=== PATIENT | female | born 1945 | race Caucasian/White ===

== ENCOUNTER 2016-11-20 20:35 | Emergency (ER) | payer OTHER ==
[~2016-11-20] VITALS: Ht 172.7 cm; Wt 77.4 kg
[~2016-11-20 20:35] MED LIST: AMLO-110 PO; CLB/200 PO; CRS20 PO; CYM/60 PO; HYDR-3714 PO; PTDOPS OPB; ZOLP10TA PO
[2016-11-20 20:54] VITALS: TEMP 36.6; Ht 172.7 cm; Wt 77.4 kg
[2016-11-20] MEDS ORDERED: OMEP20CA9 PO (22:54)
[2016-11-20] MEDS ORDERED: LXP10 PO (22:54)
[2016-11-20] MEDS ORDERED: AMLO5CAP2 PO (22:54)
[2016-11-20] MEDS ORDERED: HYDR-5688 PO (23:03)
--- NOTE | 2016-11-20 23:07 | DIAGNOSTIC IMAGING REPORT ---
PA CHEST WITH ABDOMINAL CT CLINICAL HISTORY: Generalized abdominal pain. Clinical concern for bowel obstruction. FINDINGS: A PA chest radiograph is obtained. No prior studies are available for comparison at the time of dictation. The heart is top normal for projection. There is mild atherosclerotic calcification of the thoracic aorta. There is bibasilar atelectasis and mild elevation right hemidiaphragm. No airspace consolidation or pleural effusion is seen. No pneumothorax is seen. The skeletal structures are osteopenic. The bony thorax is grossly intact. Surgical clips project over the right axilla in the right breast. Supine and erect abdominal radiographs are obtained. No prior studies are available for comparison at the time of dictation. There are distended and gas-filled loops of proximal small bowel measuring up to 4.5 cm in diameter. Scattered air-fluid levels are noted on the upright view. There is a posterior distal bowel gas, the findings suggest bowel obstruction. No evidence of intraperitoneal free air is seen. There are no abnormal abdominal calcifications. Advanced spondylotic change with probable postoperative changes seen in the lumbar spine. The bony pelvis appears intact. IMPRESSION: 1. No acute cardiopulmonary abnormality. 2. Findings suggest small bowel obstruction. Clinical correlation will be required. 3. No intraperitoneal free air is seen. Electronically signed by: Miguel Hernandez M.D. 11/20/2016 11:05 PM Dictated Date/Time: 11/20/2016 11:02 PM
[2016-11-20 23:53] LABS: BASO % 0.5 %; BASO ABS # 0.04 K/uL (0-0.2); COMPLETE YES; HEMATOCRIT 36.6 % (37-47); IG% 0.1 %; LYMPH % 30.9 %; LYMPH ABS # 2.29 K/uL (1.2-3.4); MEAN CELL VOLUME 87.1 fL (80-100); MEAN CORPUSCULAR HEMOGLOBIN 27.9 pg (25-34); MEAN PLATELET VOLUME 9.4 fL (7.4-10.4); MONO % 8.2 %; NEUT % 58.3 %; PLATELET COUNT 267 K/uL (130-400); WHITE BLOOD COUNT 7.41 K/uL (4.8-10.8)
[2016-11-21 00:09] LABS: PROTHROMBIN TIME (PATIENT) 10.4 SECONDS (9.0-12.0)
[2016-11-21 00:13] LABS: BUN/CREATININE RATIO 8.3 (10-20); CALCIUM 9.2 mg/dl (8.5-10.1); CREATININE 0.72 mg/dl (0.60-1.20); POTASSIUM 3.5 mmol/L (3.5-5.1)
[2016-11-21 02:28] VITALS: BP 137/101; PULSE 75; O2SAT 98
--- NOTE | 2016-11-21 02:49 | EMERGENCY ROOM VISIT NOTE ---
History Report prepared by Adrienne: Franci Cota Under the Supervision of: Dr. Chung Kwon M.D. First contact with patient: 21:22 Chief Complaint: CONSTIPATION Stated Complaint: NO BOWEL MOVEMENT IN 5 DAYS History of Present Illness The patient is a 71 year old female who presents to the Emergency Room with complaints of constant constipation beginning 5 days prior to arrival. The patient states that she has not had a bowel movement in 5 days and has not passed gas either. She notes that she feels bloated but denies abdominal pain, vomiting, or nausea. The patient was seen by Dr. Salinas at [facility] for her constipation. He sent her here for further evaluation. Today she has tried an enema, Miralax, stool softeners and magnesium citrate with no change in symptoms. She notes from the enema she did pass the water and a very small amount of stool. She does take one Vicodin everyday for the past 30 years due to numerous back issues. 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 The patient denies passing gas. Review of Systems See HPI for pertinent positives & negatives. A total of 10 systems reviewed and were otherwise negative. Past Medical & Surgical Medical Problems: (1) Acid reflux (2) Breast cancer (3) Chronic back pain (4) High cholesterol (5) Hypertension Surgical Problems: (1) H/O: hysterectomy Family History Patient reports no known family medical history. Social History Smoking Status: Never Smoker Smokeless Tobacco Use: No Alcohol Use: none Marital Status: Housing Status: lives with family Occupation Status: retired Current/Historical Medications Scheduled Amlodipine/Benazepril (Lotrel 5MG/20MG), 1 CAP PO DAILY Celecoxib (CeleBREX), 200 MG PO BID Duloxetine HCl (Cymbalta), 60 MG PO BID Escitalopram Oxalate (Escitalopram Oxalate), 10 MG PO QAM Olopatadine Hydrochloride (Pataday), 1 DROP OPB QAM Omeprazole (Prilosec), 20 MG PO DAILY Rosuvastatin Calcium (Crestor), 20 MG PO HS Zolpidem Tartrate (Ambien), 10 MG PO HS Scheduled PRN Hydrocodone/Acetaminophen 5MG/325MG ([place] 5MG/325MG), 1 TABLET PO Q6 PRN for Pain Allergies Coded Allergies: Adhesives (Verified Allergy, Unknown, RASH AND SORE, 11/20/16) NO KNOWN DRUG ALLERGIES (Verified Allergy, Unknown, ., 02/14/15) Physical Exam Vital Signs Date Time Temp Pulse Resp B/P Pulse Ox O2 Delivery O2 Flow Rate FiO2 11/21/16 02:28 75 18 137/101 98 11/21/16 00:16 63 18 161/87 95 Room Air 11/20/16 22:08 68 137/60 11/20/16 20:54 36.6 100 18 137/86 97 Room Air Physical Exam Constitutional: Vital signs reviewed. Eyes: Pupils are equal round reactive to light. Conjunctiva are noninjected. ENT: Pharynx is clear without erythema or exudate. Mucous membranes are moist. Neck supple without meningeal signs. Respiratory: Clear to auscultation bilaterally. Breath sounds are equal bilaterally. Cardiovascular: Regular rate and rhythm. No rubs or gallops. GI: Soft, nondistended and nontender. Bowel sounds are present. Musculoskeletal: No peripheral edema. No lower extremity tenderness. Integumentary: No cyanosis. Neurological: The patient is awake and alert. No focal deficits. Psychiatric: Normal affect. Medical Decision & Procedures ER Provider Diagnostic Interpretation: Radiology results as stated below per my review and the radiologist's interpretation: PA CHEST WITH ABDOMINAL CT CLINICAL HISTORY: Generalized abdominal pain. Clinical concern for bowel obstruction. FINDINGS: A PA chest radiograph is obtained. No prior studies are available for comparison at the time of dictation. The heart is top normal for projection. There is mild atherosclerotic calcification of the thoracic aorta. There is bibasilar atelectasis and mild elevation right hemidiaphragm. No airspace consolidation or pleural effusion is seen. No pneumothorax is seen. The skeletal structures are osteopenic. The bony thorax is grossly intact. Surgical clips project over the right axilla in the right breast. Supine and erect abdominal radiographs are obtained. No prior studies are available for comparison at the time of dictation. There are distended and gas-filled loops of proximal small bowel measuring up to 4.5 cm in diameter. Scattered air-fluid levels are noted on the upright view. There is a posterior distal bowel gas, the findings suggest bowel obstruction. No evidence of intraperitoneal free air is seen. There are no abnormal abdominal calcifications. Advanced spondylotic change with probable postoperative changes seen in the lumbar spine. The bony pelvis appears intact. IMPRESSION: 1. No acute cardiopulmonary abnormality. 2. Findings suggest small bowel obstruction. Clinical correlation will be required. 3. No intraperitoneal free air is seen. Electronically signed by: Miguel Hernandez M.D. 11/20/2016 11:05 PM Dictated Date/Time: 11/20/2016 11:[address] ABDOMEN & PELVIS: Stool within the proximal, transverse and proximal descending left colon appears to be liquid type stool. No evidence of wall thickening or pericolonic inflammatory change No bowel dilation or free air Interposition of the hepatic flexure at the right hemidiaphragm Basilar atelectasis Solid organs and gallbladder appear within limits on noncontrast imaging Ovaries appear unremarkable No free fluid Radiologist: Olvin Stewart MD Study read at 23:25 Laboratory Results 11/20/16 23:40 Red Blood Count 4.20, Mean Corpuscular Volume 87.1, Mean Corpuscular Hemoglobin 27.9, Mean Corpuscular Hemoglobin Concent 32.0, Mean Platelet Volume 9.4, Neutrophils (%) (Auto) 58.3, Lymphocytes (%) (Auto) 30.9, Monocytes (%) (Auto) 8.2, Eosinophils (%) (Auto) 2.0, Basophils (%) (Auto) 0.5, Neutrophils # (Auto) 4.31, Lymphocytes # (Auto) 2.29, Monocytes # (Auto) 0.61, Eosinophils # (Auto) 0.15, Basophils # (Auto) 0.04 11/20/16 23:40 Test 11/20/16 23:40 White Blood Count 7.41 K/uL (4.8-10.8) Red Blood Count 4.20 M/uL (4.2-5.4) Hemoglobin 11.7 g/dL (12.0-16.0) Hematocrit 36.6 % (37-47) Mean Corpuscular Volume 87.1 fL (80-100) Mean Corpuscular Hemoglobin 27.9 pg (25-34) Mean Corpuscular Hemoglobin Concent 32.0 g/dl (32-36) Platelet Count 267 K/uL (130-400) Mean Platelet Volume 9.4 fL (7.4-10.4) Neutrophils (%) (Auto) 58.3 % Lymphocytes (%) (Auto) 30.9 % Monocytes (%) (Auto) 8.2 % Eosinophils (%) (Auto) 2.0 % Basophils (%) (Auto) 0.5 % Neutrophils # (Auto) 4.31 K/uL (1.4-6.5) Lymphocytes # (Auto) 2.29 K/uL (1.2-3.4) Monocytes # (Auto) 0.61 K/uL (0.11-0.59) Eosinophils # (Auto) 0.15 K/uL (0-0.5) Basophils # (Auto) 0.04 K/uL (0-0.2) RDW Standard Deviation 45.1 fL (36.4-46.3) RDW Coefficient of Variation 14.1 % (11.5-14.5) Immature Granulocyte % (Auto) 0.1 % Immature Granulocyte # (Auto) 0.01 K/uL (0.00-0.02) Prothrombin Time 10.4 SECONDS (9.0-12.0) Prothromb Time International Ratio 1.0 (0.9-1.1) Activated Partial Thromboplast Time 27.2 SECONDS (21.0-31.0) Partial Thromboplastin Ratio 1.0 Anion Gap 5.0 mmol/L (3-11) Est Creatinine Clear Calc Drug Dose 79.5 ml/min Estimated GFR () 98.3 Estimated GFR (Non- 84.9 BUN/Creatinine Ratio 8.3 (10-20) Calcium Level 9.2 mg/dl (8.5-10.1) Laboratory results as reviewed by me. ED Course 2122: The patient was evaluated in room B6. A complete history and physical exam was performed. 2307: I discussed results with the patient and informed her she needs a CT scan. 0033: I spoke with Dr. Stewart - [place] about the patient's CT results. He states that there is no bowel obstruction. 0043: I discussed test results with the patient. She is getting an enema. 0220: The patient had a large bowel movement and is feeling better. 0224: Upon reevaluation, the patient appeared to have improvement of her symptoms. I discussed tonight's findings with her. She verbalized agreement of the treatment plan. She was discharged home. Medical Decision This is a 71-year-old female who presents with inability to have a bowel movement. Differential diagnosis includes bowel obstruction, obstipation, fecal impaction, constipation, narcotic induced constipation. I did perform a limited focused review of portions of the patient's old chart on the electronic medical record. The patient has had no recent pertinent visits to this hospital. I did evaluate the patient as noted above. The patient is presenting with inability to have a bowel movement for the past 5 days. She was sent here by her doctor to rule out bowel obstruction. She denies any abdominal pain or vomiting. I did order and personally review the patient's abdominal and chest x-rays as described above. This is concerning for small bowel obstruction. I did discuss the test results with the patient. IV access was established. I did order and review the patient's blood work as noted in the electronic medical record. I did order a CT of the abdomen and pelvis. I did review the images myself as well as the radiology report as described above. There is no evidence of bowel obstruction. She seems to have mostly liquid stool in her abdomen. I did discuss the results with the radiologist. I did discuss the test results with the patient. She was given a soapsuds enema. She did have a large bowel movement here and felt better. The patient was therefore discharged home and will follow up with her doctor. Consults Time Called: 003 Consulting Physician: Dr. Pat Suazo Returned Call: [address] Pat Suazo about the patient's CT results. He states that there is no bowel obstruction. Impression Primary Impression: Constipation Scribe Attestation The scribe's documentation has been prepared under my direct and personally reviewed by me in its entirety. I confirm that the note above accurately reflects all work, treatment, procedures, and medical decision making performed by me. Departure Information Dispostion Home / Self-Care Referrals Elizabeth Ramirez (PCP) Forms HOME CARE DOCUMENTATION FORM, IMPORTANT VISIT INFORMATION Patient Instructions Constipation, My [facility] Additional Instructions You have been examined and treated today on an emergency basis only. This is not a substitute for, or an effort to provide, complete comprehensive medical care. It is impossible to recognize and treat all injuries or illnesses in a single emergency department visit. It is therefore important that you follow up closely with your physician. Call as soon as possible for an appointment. Return for worsening symptoms or if you develop fever, vomiting, abdominal pain or any other concerning symptoms. Problem Qualifiers Primary Impression: Constipation Constipation type: unspecified constipation type Qualified Codes: K59.00 - Constipation, unspecified
--- NOTE | 2016-11-21 08:16 | DIAGNOSTIC IMAGING REPORT ---
ABDOMEN AND PELVIS CT WITHOUT CONTRAST CT DOSE: 374.86 mGy.cm HISTORY: Constipation. Bloating. TECHNIQUE: Multiaxial CT images of the abdomen and pelvis were performed without contrast. COMPARISON STUDY: None. FINDINGS: Linear density at the lung bases favor scarring or atelectasis. No pneumoperitoneum. No pneumatosis. Postoperative changes within the lower lumbar spine. Surgical clips within the visualized right breast. The unenhanced liver, spleen, adrenal glands, pancreas, and gallbladder are unremarkable. No retroperitoneal lymphadenopathy. Normal bladder. The uterus is surgically absent. No dilated loops of small bowel to suggest an obstruction. Fluid-filled colon. The cecum is located on the left side of the abdomen. IMPRESSION: 1. Fluid-filled colon. This can be seen in the setting of a gastroenteritis. 2. No evidence for bowel obstruction. Electronically signed by: Jean Colón M.D. 11/21/2016 8:14 AM Dictated Date/Time: 11/21/2016 8:06 AM
== END 2016-11-21 02:25 | disposition home or self-care (01) ==
LOC: C.EDB 20:39
DX: K59.00 Constipation, unspecified (principal); K21.9 Gastro-esophageal reflux disease without esophagitis; Z85.3 Personal history of malignant neoplasm of breast; E78.00 Pure hypercholesterolemia, unspecified; I10 Essential (primary) hypertension; M54.9 Dorsalgia, unspecified; G89.29 Other chronic pain; Z79.899 Other long term (current) drug therapy

== ENCOUNTER → 2017-03-15 | Outpatient (CLI) | payer OTHER ==
[~2017-03-15] MED LIST changes: -AMLO-110 PO; +AMLO5CAP2 PO; -HYDR-3714 PO; +HYDR-5688 PO; +LXP10 PO; +OMEP20CA9 PO
--- NOTE | 2017-03-18 14:32 | MAMMOGRAPHY REPORT ---
BILATERAL DIGITAL SCREENING MAMMOGRAM TOMOSYNTHESIS WITH CAD: 03/15/2017 CLINICAL HISTORY: Asymptomatic. Personal history of breast cancer. TECHNIQUE: Breast tomosynthesis in addition to standard 2D mammography was performed. Current study was also evaluated with a Computer Aided Detection (CAD) system. COMPARISON: Comparison is made to exams dated: 10/22/2014 mammogram - [facility], mammogram, 12/31/2008 mammogram, and 05/07/2007 mammogram. BREAST COMPOSITION: There are scattered areas of fibroglandular density in both breasts. FINDINGS: There is a lobulated 7 mm mass within the left medial breast at approximately 9:00 middle depth, for which ultrasound and possible additional spot compression views are recommended for furthe r evaluation. This may represent a cyst. The remainder of both breasts are stable compared to prior exams, without suspicious masses, calcific ations, or areas of architectural distortion noted. There are stable postsurgical changes in the rig ht breast from prior lumpectomy. Mixed density 2.4 cm mass in the left breast at approximately 3:00 is stable dating back to the 2006 exam and is compatible with a benign hamartoma. IMPRESSION: ACR BI-RADS CATEGORY 0: INCOMPLETE EVALUATION: NEED ADDITIONAL IMAGING EVALUATION Left breast mass, for which additional imaging evaluation is recommended. The patient will be called to schedule an appointment. Approximately 10% of breast cancers are not detected with mammography. A negative mammographic report should not delay biopsy if a clinically suggestive mass is present. Idania Pérez M.D. /:03/15/2017 16:33:29 Pasting Machine Offbearer: Mariela CHAUDHARI)([place]), [facility] letter sent: Addl Imaging 0 BI-RADS Code: ACR BI-RADS Category 0: Incomplete Evaluation: Need Additional Imaging Evaluation
== END | disposition home or self-care (01) ==
LOC: C.MAMM 14:32
PROVIDERS: ATTEND Nurse Practitioner Family
DX: Z12.31 Encounter for screening mammogram for malignant neoplasm of breast (principal); N63 Unspecified lump in breast; Z85.3 Personal history of malignant neoplasm of breast

== ENCOUNTER → 2017-03-21 | Outpatient (CLI) | payer OTHER ==
--- NOTE | 2017-03-22 14:31 | MAMMOGRAPHY REPORT ---
ULTRASOUND OF LEFT BREAST: 03/21/2017 CLINICAL HISTORY: Callback from screening mammogram for left breast mass. COMPARISON: Comparison is made to exams dated: 03/15/2017 mammogram, 10/22/2014 mammogram - [facility], 09/02/2012 mammogram, 12/31/2008 mammogram, and 05/07/2007 mammogram. TECHNIQUE: Real-time targeted ultrasound of the left breast was performed. FINDINGS: Real-time, high resolution targeted ultrasound was performed of the area of the mammograph ic mass seen on the recent screening mammogram in the left 9:00 breast. In the left 9:00 breast suba reolar region, there is an oval circumscribed anechoic mass with a thin internal septation, measuring 9 x 3 x 6 mm. This corresponds with the mammographic mass and is consistent with a benign cyst. IMPRESSION: ACR BI-RADS CATEGORY 2: BENIGN Benign 9 mm cyst in the left 9:00 subareolar breast, which correspond with the mammographic mass. Th ere is no sonographic evidence of malignancy. A 1 year screening mammogram is recommended. The elizabeth ent was verbally notified of the results. Idania Pérez M.D. /:03/21/2017 14:55:35 Police Clerk: Carla CHAUDHARI)([place]), [facility] letter sent: Normal 1/2 BI-RADS Code: ACR BI-RADS Category 2: Benign
== END | disposition home or self-care (01) ==
LOC: C.MAMM 14:15
PROVIDERS: ATTEND Nurse Practitioner Family
DX: N60.02 Solitary cyst of left breast (principal)

== ENCOUNTER → 2017-04-22 | Outpatient (CLI) | payer OTHER ==
--- NOTE | 2017-04-22 11:26 | DIAGNOSTIC IMAGING REPORT ---
BILATERAL KNEES 5 VIEWS CLINICAL HISTORY: Bilateral knee pain COMPARISON: None. DISCUSSION: The bones are osteopenic. There is bilateral chondrocalcinosis. No acute fractures are visualized. There are mild osteophytic changes present within each the with medial joint compartment narrowing. IMPRESSION: Bilateral chondrocalcinosis and degenerative change. No acute fractures. Electronically signed by: Franc Mims M.D. 04/22/2017 11:25 AM Dictated Date/Time: 04/22/2017 11:24 AM
== END | disposition home or self-care (01) ==
LOC: C.RDSM 11:15
PROVIDERS: ATTEND Physician Assistant
DX: M25.561 Pain in right knee (principal); M25.562 Pain in left knee; M11.261 Other chondrocalcinosis, right knee; M11.262 Other chondrocalcinosis, left knee

== ENCOUNTER → 2017-09-20 | Outpatient (CLI) | payer OTHER ==
--- NOTE | 2017-09-20 12:50 | DIAGNOSTIC IMAGING REPORT ---
CERVICAL SPINE 4 OR 5 VIEWS HISTORY: 72 years-old Female LEFT CERVICAL RADICULOPATHY acute cervical spine pain with left-sided radicular symptoms COMPARISON: None available TECHNIQUE: 5 views of the cervical spine FINDINGS: There is reversal the normal cervical lordosis centered at the C4-C5 level. Severe intervertebral disc space narrowing is seen at C5-C6 with at least moderate intervertebral disc space narrowing at C6-C7. Mild multilevel endplate spurring is noted with mostly moderate multilevel facet arthrosis. These changes result in mild left-sided bony foraminal narrowing on the left at C6-C7. No acute fracture or subluxation. Imaged lung apices appear clear. No prevertebral soft tissue swelling or opaque foreign body. IMPRESSION: 1. No acute fracture or subluxation. 2. Degenerative changes as above, most pronounced at the C5-C6 level where there is severe intervertebral disc space narrowing. 3. Mild left-sided bony neuroforaminal stenosis at C6-C7. The above report was generated using voice recognition software. It may contain grammatical, syntax or spelling errors. Electronically signed by: Kimo Robison M.D. 09/20/2017 12:49 PM Dictated Date/Time: 09/20/2017 12:46 PM
== END | disposition home or self-care (01) ==
LOC: C.RDSM 11:30
PROVIDERS: ATTEND Physician Assistant
DX: M47.812 Spondylosis without myelopathy or radiculopathy, cervical region (principal); M48.02 Spinal stenosis, cervical region

== ENCOUNTER → 2017-10-14 | Outpatient (CLI) | payer OTHER ==
[~2017-10-14] MED LIST changes: +GADAVIST IV PRN
--- NOTE | 2017-10-14 10:09 | DIAGNOSTIC IMAGING REPORT ---
MR ANGIOGRAM OF THE BRAIN CLINICAL HISTORY: Paresthesias chronic speech disturbance. Headaches. COMPARISON STUDY: MRI of the brain performed concurrently on 10/14/2017.. TECHNIQUE: 3-D [id number] MR angiography of the intracranial circulation is performed. 3-D tumble views are created and assessed. IV contrast was not administered for this examination. FINDINGS: The internal carotid arteries are widely patent bilaterally, as are the anterior and middle cerebral arteries. The vertebrobasilar system and posterior cerebral arteries are widely patent. The vertebral arteries are codominant. There is no aneurysm, high-grade stenosis, or focal vessel cutoff seen throughout the intracranial circulation. The brain parenchyma is normal as visualized. IMPRESSION: Unremarkable MR angiogram of the brain. Electronically signed by: Miguel Hernandez M.D. 10/14/2017 10:07 AM Dictated Date/Time: 10/14/2017 10:05 AM
--- NOTE | 2017-10-14 11:20 | DIAGNOSTIC IMAGING REPORT ---
MRI OF THE BRAIN COMBO CLINICAL HISTORY: Paresthesias. Daily headaches. Chronic speech disturbance. COMPARISON STUDY: No priors. TECHNIQUE: MRI of the brain was performed utilizing various T1 and T2-weighted sequences in the axial, sagittal, and coronal planes. Contrast-enhanced sequences were acquired following the administration of 6.5 cc of Gadavist. FINDINGS: Brain parenchyma: There are age-related involutional changes noting advanced confluent subcortical and periventricular microangiopathic disease. A small chronic lacunar infarct is identified in the left cerebellar hemisphere. Chronic lacunar infarcts are also identified in the right thalamus and the left caudate head. There is no hemorrhage or mass effect. There is no restricted diffusion to suggest acute ischemia. No enhancing mass lesion is identified on the postcontrast images. Matthews-white matter differentiation is preserved. No extra-axial fluid collection is seen. The cerebellar tonsils are normal in configuration. Ventricles, sulci, and cisterns: Prominent secondary to involutional change. Pituitary and sella: Unremarkable. Intracranial vasculature: Normal flow voids are maintained at the skull base. Orbits: The bony orbits are grossly intact. Orbital contents are normal in appearance noting bilateral ocular lens implants. Sinuses and mastoids: Clear. Calvarium: Unremarkable. Cervical cord: Partially visualized cervical spinal cord is normal in morphology and signal intensity. IMPRESSION: 1. No acute intracranial abnormality. 2. Senescent changes and advanced microangiopathic disease as above. Electronically signed by: Miguel Hernandez M.D. 10/14/2017 11:19 AM Dictated Date/Time: 10/14/2017 11:16 AM
== END | disposition home or self-care (01) ==
LOC: C.MRI 08:45
PROVIDERS: ATTEND Nurse Practitioner Family
DX: R20.2 Paresthesia of skin (principal); R20.0 Anesthesia of skin; I10 Essential (primary) hypertension; R47.9 Unspecified speech disturbances

== ENCOUNTER 2018-09-17 20:24 | Inpatient (IN) ==
[2018-09-17] MEDS ORDERED: OPTIRAY 320 125ml IV PRN (20:44)
--- NOTE | 2018-09-17 20:50 | CT Scan Report ---
CT OF THE HEAD WITHOUT CONTRAST CLINICAL HISTORY: Stroke evaluation COMPARISON STUDY: MRI of the brain October 14, 2017. TECHNIQUE: Helical axial images of the head were obtained without IV contrast. Automated exposure con trol was utilized for the study. A dose lowering technique was utilized adhering to the principles o f ALARA. FINDINGS: No acute intracranial hemorrhage, midline shift or mass effect is present. Ventricular dila tation is unchanged. The basilar cisterns are patent. There are no extra-axial collections. White mat ter hypodensities are unchanged. These suggest small vessel disease. An 8 mm hypodensity within the l eft internal capsule is noted. There are no significant calvarial abnormalities. IMPRESSION: 1. No acute intracranial hemorrhage or mass effect. Discussed with Dr. Proctor at time of dictation. 2. 8 mm hypodensity within the left internal capsule which represents an age indeterminate lacunar in farct. Electronically signed by: Nik Bolton M.D. 09/17/2018 8:49 PM
[2018-09-17] MEDS ORDERED: SODIUM CHLORIDE 0.9% 1000ML 1,000 ML IV SCH (21:00)
[2018-09-17 21:01] LABS: Basophils # (auto) 0.04 K/uL (0-0.2); Basophils % (auto) 0.5 %; Eosinophils # (auto) 0.08 K/uL (0-0.5); Eosinophils % (auto) 0.9 %; Hematocrit (blood only) 37.1 % (37-47); Hemoglobin 11.8 g/dL (12.0-16.0); Immature Granulocytes # (auto) 0.01 K/uL (0.00-0.02); Immature Granulocytes % (auto) 0.1 %; Lymphocytes # (auto) 2.98 K/uL (1.2-3.4); Lymphocytes % (auto) 34.8 %; Mean Corpuscular Hgb Conc 31.8 g/dL (32-36); Mean Corpuscular Volume 85.3 fL (80-100); Mean Platelet Volume 9.8 fL (7.4-10.4); Monocytes # (auto) 0.65 K/uL (0.11-0.59); Monocytes % (auto) 7.6 %; Neutrophils # (auto) 4.81 K/uL (1.4-6.5); Neutrophils % (auto) 56.1 %; Platelet Count 304 K/uL (130-400); RDW Coefficient of Variation 14.6 % (11.5-14.5); RDW Standard Deviation 45.3 fL (36.4-46.3); Red Blood Count 4.35 M/uL (4.2-5.4); White Blood Count 8.57 K/uL (4.8-10.8)
--- NOTE | 2018-09-17 21:05 | CT Scan Report ---
CT ANGIOGRAPHY OF THE NECK WITH CONTRAST CLINICAL HISTORY: aphasia COMPARISON STUDY: No previous studies for comparison. Technique: CT angiography of the carotid and vertebral arteries was obtained using Quirky 320 IV and 3D reconstruction on an independent workstation. NASCET criteria was utilized. Automated exposure c ontrol was utilized for the study. A dose lowering technique was utilized adhering to the principles of ALARA. CT DOSE: 1042.82 mGy.cm Findings: Please note that the CTA of the head will be reported separately. Lung apices are clear. Th ere is no cervical lymphadenopathy. The bilateral vertebral arteries are patent. There is mild plaque within the bilateral carotid bifurcations without stenosis. There is no dissection. There is no aneu rysm within the neck. IMPRESSION: No stenosis or dissection within the major vessels of the neck. Mild atherosclerotic plaque. Electronically signed by: Nik Bolton M.D. 09/17/2018 9:04 PM
--- NOTE | 2018-09-17 21:07 | CT Scan Report ---
CTA ANGIOGRAPHY OF THE HEAD CLINICAL HISTORY: aphasia COMPARISON STUDY: MRA of the head October 14, 2017. TECHNIQUE: Helical axial images of the head were obtained following uneventful intravenous administr ation of 119 cc of Optiray 320. Automated exposure control was utilized for the study. A dose lower ing technique was utilized adhering to the principles of ALARA. FINDINGS: Please note that the CTA of the neck will be reported separately. The CT of the head will a lso be reported separately. No acute intracranial hemorrhage, midline shift or mass effect is present . Ventricular dilatation is stable. White matter hypodensity suggests small vessel disease. There is moderate atherosclerotic plaque within the bilateral cavernous carotids without significant stenosis. The bilateral M1, M2, A1 and A2 segments are patent. Posterior circulation is also intact. There is no intracranial aneurysm or dissection. IMPRESSION: Unremarkable CTA of the head for age. Electronically signed by: Nik Bolton M.D. 09/17/2018 9:06 PM
[2018-09-17 21:18] LABS: BUN Creatinine Ratio 14.7 (10-20); Blood Urea Nitrogen 12 mg/dl (7-18); Calcium 8.7 mg/dl (8.5-10.1); Carbon Dioxide 31 mmol/L (21-32); Chloride 100 mmol/L (98-107); Creatinine Clr Calc Pharmacy 67.1 ml/min; Est GFR (African American) 81.7; Est GFR (Non-African American) 70.4; Glucose 122 mg/dl (70-99); Magnesium 2.2 mg/dl (1.8-2.4); Potassium 2.6 mmol/L (3.5-5.1); Sodium 138 mmol/L (136-145)
[2018-09-17 21:22] LABS: Troponin I < 0.015 ng/ml (0-0.045)
--- NOTE | 2018-09-17 21:31 | Emergency Department Note ---
Entered by Anna Burt acting as a scribe for Kalin Proctor MD History of Present Illness General Chief complaint: Stroke Alert Stated complaint: stroke alert Time Seen by Provider: 09/17/18 20:31 Source: patient and family History of Present Illness Onset (ago): minute(s) (40) Location: head Severity: similar to prior episodes Pain Consistency: + other (Episode) Quality: + other (CVA) Associated symptoms: + confusion and + other (CVA) The patient is a 73 year old female who presents to the Emergency Room with complaints of episode of CVA starting 40 minutes ago. The patients reports that the patient was sitting on the couch and passed out slipping to the ground where he then lowered her to the ground. He states that the patient lost consciousness for about 5 minutes. He notes that the patient has had silly spells before where she is not able to communicate effectively. He adds that the patients last silly spell was 10 days ago and the one before that was about 6 months ago. The patients reports that the patient is currently acting confused compared to her normal baseline. EMS stated that when they found the patient they found no deficits except for a slight right sided facial droop. They report that the patients last known baseline time was 1930. The pharmacist reported that the patient is currently taking Vicodin for her chronic back pain. Home Medications Home Medications Medication Instructions Recorded Confirmed Type celecoxib [Celebrex] 200 mg PO UD 09/17/18 09/17/18 History cyclobenzaprine 10 mg PO BID PRN 09/17/18 09/17/18 History duloxetine [Cymbalta] 20 mg PO BID 09/17/18 09/17/18 History escitalopram oxalate [Lexapro] 10 mg PO DAILY 09/17/18 09/17/18 History fluticasone [Flonase Allergy 0 spray INTRANASAL UD 09/17/18 09/17/18 History Relief] hydrocodone-acetaminophen [[place]] 1 - 2 tab PO Q4 PRN 09/17/18 09/17/18 History lubiprostone [Amitiza] 24 mcg PO BID 09/17/18 09/17/18 History omeprazole 40 mg PO DAILY 09/17/18 09/17/18 History zolpidem [Ambien] 10 mg PO HS 09/17/18 09/17/18 History atorvastatin 40 mg PO QAM #30 tab 09/18/18 Rx clopidogrel 75 mg PO QAM #30 tab 09/18/18 Rx Allergies Allergy/AdvReac Type Severity Reaction Status Date / Time adhesive Allergy Unknown RASH AND Verified 11/20/16 22:50 SORE No Known Drug Allergies Allergy Unknown . Verified 02/14/15 14:08 Past Med/Surg History Medical History Chronic back pain Depression Anxiety High cholesterol (Chronic) Hypertension (Chronic) Acid reflux (Chronic) Breast cancer Chronic back pain (Chronic) Surgical History H/O: hysterectomy History of back surgery Family History Other CVA (cerebral vascular accident) Social History Current Living Situation: Spouse Feels Safe at Home: Yes Smoking Status: Never smoker Hx Alcohol Use: No Hx Substance Use: Yes substance use type: prescription drug Beliefs That Will Affect Care: None Preferred Language: Mauritian Review of Systems See HPI for pertinent positives & negatives. and A total of 10 systems reviewed and were otherwise negative Physical Exam Vital Signs Vital Signs - 24 hr 09/17/18 21:58 09/17/18 23:52 09/18/18 00:28 Temperature 36.5 C Temperature Source Oral Pulse Rate - Lying Pulse Rate - Sitting Pulse Rate - Standing Pulse Rate 77 Pulse Rate [Right] 79 79 Pulse Rhythm [Right] Regular Pulse Strength [Right] Normal Respiratory Rate 16 18 20 Respiratory Effort / Characteristics Non-Labored Spontaneous Non-Labored Spontaneous Respiratory Depth Normal Respiratory Pattern Blood Pressure - Lying Blood Pressure - Sitting Blood Pressure- Standing Blood Pressure 154/79 H Blood Pressure [Right Arm] 154/91 H 188/95 H Blood Pressure Mean [Right Arm] 112 126 Blood Pressure Position [Right Arm] Lying Sitting Pulse Oximetry 97 97 95 Oxygen Delivery Method Room Air Room Air Room Air 09/18/18 00:56 09/18/18 01:39 09/18/18 03:23 Temperature 37.1 C Temperature Source Oral Pulse Rate - Lying Pulse Rate - Sitting Pulse Rate - Standing Pulse Rate 76 Pulse Rate [Right] 76 81 Pulse Rhythm [Right] Pulse Strength [Right] Respiratory Rate 18 Respiratory Effort / Characteristics Respiratory Depth Respiratory Pattern Blood Pressure - Lying Blood Pressure - Sitting Blood Pressure- Standing Blood Pressure Blood Pressure [Right Arm] 173/81 H 189/92 H Blood Pressure Mean [Right Arm] 111 124 Blood Pressure Position [Right Arm] Lying Pulse Oximetry 95 Oxygen Delivery Method 09/18/18 04:09 09/18/18 07:18 09/18/18 08:00 Temperature 36.6 C 36.5 C Temperature Source Oral Oral Pulse Rate - Lying Pulse Rate - Sitting Pulse Rate - Standing Pulse Rate 79 Pulse Rate [Right] 78 89 Pulse Rhythm [Right] Regular Pulse Strength [Right] Normal Respiratory Rate 18 16 Respiratory Effort / Characteristics Non-Labored Spontaneous Respiratory Depth Normal Respiratory Pattern Regular Blood Pressure - Lying Blood Pressure - Sitting Blood Pressure- Standing Blood Pressure Blood Pressure [Right Arm] 172/89 H 166/80 H Blood Pressure Mean [Right Arm] 116 108 Blood Pressure Position [Right Arm] Lying Pulse Oximetry 93 94 Oxygen Delivery Method Room Air Room Air 09/18/18 09:20 09/18/18 11:27 09/18/18 14:57 Temperature 36.3 C L 36.7 C Temperature Source Oral Oral Pulse Rate - Lying 84 Pulse Rate - Sitting 89 Pulse Rate - Standing 92 H Pulse Rate Pulse Rate [Right] 90 87 Pulse Rhythm [Right] Pulse Strength [Right] Respiratory Rate 17 17 Respiratory Effort / Characteristics Respiratory Depth Respiratory Pattern Blood Pressure - Lying 158/74 H Blood Pressure - Sitting 143/86 H Blood Pressure- Standing 142/94 H Blood Pressure Blood Pressure [Right Arm] 170/92 H 163/92 H Blood Pressure Mean [Right Arm] 118 115 Blood Pressure Position [Right Arm] Lying Lying Pulse Oximetry 96 95 Oxygen Delivery Method Room Air Room Air 09/18/18 15:36 Temperature 36.7 C Temperature Source Pulse Rate - Lying Pulse Rate - Sitting Pulse Rate - Standing Pulse Rate Pulse Rate [Right] 87 Pulse Rhythm [Right] Pulse Strength [Right] Respiratory Rate 17 Respiratory Effort / Characteristics Respiratory Depth Respiratory Pattern Blood Pressure - Lying Blood Pressure - Sitting Blood Pressure- Standing Blood Pressure Blood Pressure [Right Arm] 158/74 H Blood Pressure Mean [Right Arm] Blood Pressure Position [Right Arm] Pulse Oximetry 95 Oxygen Delivery Method GENERAL: Awake, alert, fatigued appearing, in no distress HENT: Normocephalic, atraumatic. Oropharynx with dry mucous membranes and otherwise unremarkable. . EYES: Normal conjunctiva. Sclera non-icteric. EOMI. No nystamgus. PEARRL. NECK: Supple. No nuchal rigidity. FROM. No JVD. RESPIRATORY: Clear to auscultation. CARDIAC: Regular rate, normal rhythm. Extremities warm and well perfused. Pulses equal. ABDOMEN: Soft, non-distended. No tenderness to palpation. No rebound or guarding. No masses. RECTAL: Deferred. MUSCULOSKELETAL: Chest examination reveals no tenderness. The back is symmetrical on inspection without obvious abnormality. There is no CVA tenderness to palpation. No joint edema. LOWER EXTREMITIES: Calves are equal size bilaterally and non-tender. No edema. No discoloration. NEURO: Normal sensorium. No sensory or motor deficits noted. Intact finger to nose. 5/5 strength, SILT x4 extremities. Mildly poor attention with mild confusion and difficulty with word finding. No dysarthria. No facial droop. SKIN: No rash or jaundice noted. Course 2020: Past medical records reviewed. The patient was evaluated in room A1, and a complete history and physical examination were performed. 2112: I reviewed the patient's case with Dr. Sterling Guerrero neurologist who reeval recommends that the patient be admitted for 24 hour observation, MRI and EEG. She states that the patient can resume her daily Aspirin. 2129: I reviewed the patient's case with Dr. Shravan Irving [facility] [place] She will evaluate the patient for further management. Administered Medications Discontinued Medications Hydrocodone Bitart/Acetaminophen ([place] 5/325) 2 tab PO Q4 PRN PRN Reason: Pain Stop: 10/02/18 00:22 Last Admin: 09/18/18 12:54 Dose: 2 tab Atorvastatin Calcium (Lipitor) 40 mg PO QAM [facility] Stop: 10/18/18 08:59 Last Admin: 09/18/18 08:00 Dose: 40 mg Clopidogrel Bisulfate (Plavix) 75 mg PO QAM [facility] Stop: 10/18/18 08:59 Last Admin: 09/18/18 08:00 Dose: 75 mg Cyclobenzaprine HCl (Flexeril) 10 mg PO BID PRN PRN Reason: MUSCLE SPASMS Stop: 10/18/18 00:22 Last Admin: 09/18/18 08:00 Dose: 10 mg Duloxetine HCl (Cymbalta) 20 mg PO BID [facility] Stop: 10/18/18 08:59 Last Admin: 09/18/18 08:01 Dose: 20 mg Escitalopram Oxalate (Lexapro) 10 mg PO DAILY [facility] Stop: 10/18/18 08:59 Last Admin: 09/18/18 08:01 Dose: 10 mg Fluticasone Propionate (Flonase) 1 sprays TANYA DAILY [facility] Stop: 10/18/18 08:59 Last Admin: 09/18/18 08:03 Dose: 1 sprays Gadobutrol (Gadavist 65ml) 7.5 ml IV ONCE PRN PRN Reason: Interaction Checking Stop: 09/22/18 10:32 Last Admin: 09/18/18 10:34 Dose: 7.5 ml Sodium Chloride (Nss 1000ml) 1,000 mls @ 999 mls/hr IV .Q1H1M [facility] Stop: 09/17/18 22:00 Last Infusion: 09/17/18 22:17 Dose: 0 mls/hr Admin: 09/17/18 21:12 Dose: 999 mls/hr Potassium Chloride (K Leroy / Wtr) 10 meq in 100 mls @ 100 mls/hr IV Q1H [facility] Stop: 09/18/18 05:59 Last Admin: 09/18/18 05:16 Dose: Not Given Admin: 09/18/18 05:16 Dose: Not Given Admin: 09/18/18 05:16 Dose: Not Given Infusion: 09/18/18 04:05 Dose: Admin: 09/18/18 03:05 Dose: 100 mls/hr Acetaminophen (Ofirmev) 65 mls @ 200 mls/hr IV Q8H PRN PRN Reason: pain or fever Stop: 10/18/18 01:29 Last Infusion: 09/18/18 02:55 Dose: 0 mls/hr Admin: 09/18/18 02:35 Dose: 200 mls/hr Pantoprazole Sodium 40 mg/ (Syringe) 10 mls @ 5 mls/min IV DAILY@1100 [facility] Stop: 10/18/18 10:59 Last Admin: 09/18/18 14:12 Dose: Not Given Ioversol (Optiray 320 125ml) 119 ml IV ONCE PRN PRN Reason: Interaction Checking Stop: 09/21/18 20:43 Last Admin: 09/17/18 20:44 Dose: 119 ml Lubiprostone (Amitiza) 24 mcg PO BID [facility] Stop: 10/18/18 08:59 Last Admin: 09/18/18 08:02 Dose: 24 mcg Potassium Chloride (Klor-Con M20) 80 meq PO ONE ONE Stop: 09/18/18 01:01 Last Admin: 09/18/18 02:15 Dose: Not Given Potassium Chloride (Klor-Con M20) 40 meq PO NOW STA Stop: 09/18/18 09:10 Last Admin: 09/18/18 13:12 Dose: 40 meq Potassium Chloride (Klor-Con M20) 40 meq PO 1545 ONE Stop: 09/18/18 15:46 Last Admin: 09/18/18 16:07 Dose: 40 meq Medical Decision Making Differential Diagnosis Differential includes acute coronary syndrome, myocardial infarction, CVA, TIA , anemia, infection, pneumonia, UTI, pyelonephritis, poor nutrition, dehydration , electrolyte disturbance,hypoglycemia. Medical Records Attestation: I reviewed the patient's medical records. Home Medications Current Medication List: was personally reviewed by me Laboratory Data Attestation: I reviewed the patient's lab results. Result diagrams: 09/18/18 11:31 09/18/18 11:31 Lab Results 09/17/18 09/17/18 09/17/18 Range/Units 20:52 20:52 Unknown WBC 8.57 (4.8-10.8) K/uL RBC 4.35 (4.2-5.4) M/uL Hgb 11.8 L (12.0-16.0) g/dL Hct 37.1 (37-47) % MCV 85.3 (80-100) fL MCH 27.1 (25-34) pg MCHC 31.8 L (32-36) g/dL RDW Std Deviation 45.3 (36.4-46.3) fL RDW Coeff of Edouard 14.6 H (11.5-14.5) % Plt Count 304 (130-400) K/uL MPV 9.8 (7.4-10.4) fL Immature Gran % (Auto) 0.1 % Neut % (Auto) 56.1 % Lymph % (Auto) 34.8 % Bland % (Auto) 7.6 % Eos % (Auto) 0.9 % Baso % (Auto) 0.5 % Immature Gran # (Auto) 0.01 (0.00-0.02) K/uL Neut # (Auto) 4.81 (1.4-6.5) K/uL Lymph # (Auto) 2.98 (1.2-3.4) K/uL Bland # (Auto) 0.65 H (0.11-0.59) K/uL Eos # (Auto) 0.08 (0-0.5) K/uL Baso # (Auto) 0.04 (0-0.2) K/uL PT (9.0-12.0) Seconds INR (0.9-1.1) APTT (21.0-31.0) Seconds PTT Ratio Sodium (136-145) mmol/L Potassium (3.5-5.1) mmol/L Chloride (98-107) mmol/L Carbon Dioxide (21-32) mmol/L Anion Gap (3-11) BUN (7-18) mg/dl Creatinine (0.6-1.2) mg/dl Est Cr Clr Drug Dosing ml/min Est GFR ( Amer) Est GFR (Non-Af Amer) BUN/Creatinine Ratio (10-20) Glucose (70-99) mg/dl POC Glucose 112 H (70-99) Estimat Average Glucose mg/dl Hemoglobin A1c (4.5-5.6) % Calcium (8.5-10.1) mg/dl Phosphorus (2.5-4.9) mg/dl Magnesium (1.8-2.4) mg/dl Total Bilirubin (0.2-1) mg/dl Direct Bilirubin (0-0.2) mg/dl AST (15-37) U/L ALT (12-78) U/L Alkaline Phosphatase (45-117) U/L Troponin I (0-0.045) ng/ml Total Protein (6.4-8.2) gm/dl Albumin (3.4-5.0) gm/dl Triglycerides (0-150) mg/dl Cholesterol (0-200) mg/dl LDL Cholesterol, Calc mg/dl VLDL Cholesterol, Calc mg/dl HDL Cholesterol mg/dl Cholesterol/HDL Ratio Vitamin B12 (211-911) pg/ml Folate (>5.38) ng/ml TSH (0.300-4.500) uIu/ml Lyme Disease IgG Ab (Negative) Lyme Disease IgM Ab (Negative) Blood Type A Positive Antibody Screen NEGATIVE 09/17/18 09/17/18 09/18/18 Range/Units Unknown Unknown 11:31 WBC (4.8-10.8) K/uL RBC (4.2-5.4) M/uL Hgb (12.0-16.0) g/dL Hct (37-47) % MCV (80-100) fL MCH (25-34) pg MCHC (32-36) g/dL RDW Std Deviation (36.4-46.3) fL RDW Coeff of Edouard (11.5-14.5) % Plt Count (130-400) K/uL MPV (7.4-10.4) fL Immature Gran % (Auto) % Neut % (Auto) % Lymph % (Auto) % Bland % (Auto) % Eos % (Auto) % Baso % (Auto) % Immature Gran # (Auto) (0.00-0.02) K/uL Neut # (Auto) (1.4-6.5) K/uL Lymph # (Auto) (1.2-3.4) K/uL Bland # (Auto) (0.11-0.59) K/uL Eos # (Auto) (0-0.5) K/uL Baso # (Auto) (0-0.2) K/uL PT 10.0 (9.0-12.0) Seconds INR 1.0 (0.9-1.1) APTT 26.0 (21.0-31.0) Seconds PTT Ratio 1.0 Sodium 138 140 (136-145) mmol/L Potassium 2.6 L 2.8 L (3.5-5.1) mmol/L Chloride 100 105 (98-107) mmol/L Carbon Dioxide 31 29 (21-32) mmol/L Anion Gap 7.0 6.0 (3-11) BUN 12 9 (7-18) mg/dl Creatinine 0.83 0.59 L (0.6-1.2) mg/dl Est Cr Clr Drug Dosing 67.1 86.9 ml/min Est GFR ( Amer) 81.7 106.1 Est GFR (Non-Af Amer) 70.4 91.6 BUN/Creatinine Ratio 14.7 15.3 (10-20) Glucose 122 H 102 H (70-99) mg/dl POC Glucose (70-99) Estimat Average Glucose mg/dl Hemoglobin A1c (4.5-5.6) % Calcium 8.7 8.7 (8.5-10.1) mg/dl Phosphorus 3.9 (2.5-4.9) mg/dl Magnesium 2.2 (1.8-2.4) mg/dl Total Bilirubin 0.5 (0.2-1) mg/dl Direct Bilirubin 0.1 (0-0.2) mg/dl AST 16 (15-37) U/L ALT 16 (12-78) U/L Alkaline Phosphatase 91 (45-117) U/L Troponin I < 0.015 (0-0.045) ng/ml Total Protein 7.6 (6.4-8.2) gm/dl Albumin 3.6 (3.4-5.0) gm/dl Triglycerides 103 (0-150) mg/dl Cholesterol 254 H (0-200) mg/dl LDL Cholesterol, Calc 187 mg/dl VLDL Cholesterol, Calc 21 mg/dl HDL Cholesterol 46 mg/dl Cholesterol/HDL Ratio 6 Vitamin B12 (211-911) pg/ml Folate (>5.38) ng/ml TSH 2.570 (0.300-4.500) uIu/ml Lyme Disease IgG Ab (Negative) Lyme Disease IgM Ab (Negative) Blood Type Antibody Screen 09/18/18 09/18/18 09/18/18 Range/Units 11:31 11:31 11:31 WBC 7.05 (4.8-10.8) K/uL RBC 4.34 (4.2-5.4) M/uL Hgb 11.6 L (12.0-16.0) g/dL Hct 36.2 L (37-47) % MCV 83.4 (80-100) fL MCH 26.7 (25-34) pg MCHC 32.0 (32-36) g/dL RDW Std Deviation 44.4 (36.4-46.3) fL RDW Coeff of Edouard 14.6 H (11.5-14.5) % Plt Count 312 (130-400) K/uL MPV 9.7 (7.4-10.4) fL Immature Gran % (Auto) 0.1 % Neut % (Auto) 71.8 % Lymph % (Auto) 18.4 % Bland % (Auto) 8.8 % Eos % (Auto) 0.6 % Baso % (Auto) 0.3 % Immature Gran # (Auto) 0.01 (0.00-0.02) K/uL Neut # (Auto) 5.06 (1.4-6.5) K/uL Lymph # (Auto) 1.30 (1.2-3.4) K/uL Bland # (Auto) 0.62 H (0.11-0.59) K/uL Eos # (Auto) 0.04 (0-0.5) K/uL Baso # (Auto) 0.02 (0-0.2) K/uL PT (9.0-12.0) Seconds INR (0.9-1.1) APTT (21.0-31.0) Seconds PTT Ratio Sodium (136-145) mmol/L Potassium (3.5-5.1) mmol/L Chloride (98-107) mmol/L Carbon Dioxide (21-32) mmol/L Anion Gap (3-11) BUN (7-18) mg/dl Creatinine (0.6-1.2) mg/dl Est Cr Clr Drug Dosing ml/min Est GFR ( Amer) Est GFR (Non-Af Amer) BUN/Creatinine Ratio (10-20) Glucose (70-99) mg/dl POC Glucose (70-99) Estimat Average Glucose 126 mg/dl Hemoglobin A1c 6.0 H (4.5-5.6) % Calcium (8.5-10.1) mg/dl Phosphorus (2.5-4.9) mg/dl Magnesium (1.8-2.4) mg/dl Total Bilirubin (0.2-1) mg/dl Direct Bilirubin (0-0.2) mg/dl AST (15-37) U/L ALT (12-78) U/L Alkaline Phosphatase (45-117) U/L Troponin I (0-0.045) ng/ml Total Protein (6.4-8.2) gm/dl Albumin (3.4-5.0) gm/dl Triglycerides (0-150) mg/dl Cholesterol (0-200) mg/dl LDL Cholesterol, Calc mg/dl VLDL Cholesterol, Calc mg/dl HDL Cholesterol mg/dl Cholesterol/HDL Ratio Vitamin B12 356 (211-911) pg/ml Folate 10.45 (>5.38) ng/ml TSH (0.300-4.500) uIu/ml Lyme Disease IgG Ab (Negative) Lyme Disease IgM Ab (Negative) Blood Type Antibody Screen 09/18/18 Range/Units 11:31 WBC (4.8-10.8) K/uL RBC (4.2-5.4) M/uL Hgb (12.0-16.0) g/dL Hct (37-47) % MCV (80-100) fL MCH (25-34) pg MCHC (32-36) g/dL RDW Std Deviation (36.4-46.3) fL RDW Coeff of Edouard (11.5-14.5) % Plt Count (130-400) K/uL MPV (7.4-10.4) fL Immature Gran % (Auto) % Neut % (Auto) % Lymph % (Auto) % Bland % (Auto) % Eos % (Auto) % Baso % (Auto) % Immature Gran # (Auto) (0.00-0.02) K/uL Neut # (Auto) (1.4-6.5) K/uL Lymph # (Auto) (1.2-3.4) K/uL Bland # (Auto) (0.11-0.59) K/uL Eos # (Auto) (0-0.5) K/uL Baso # (Auto) (0-0.2) K/uL PT (9.0-12.0) Seconds INR (0.9-1.1) APTT (21.0-31.0) Seconds PTT Ratio Sodium (136-145) mmol/L Potassium (3.5-5.1) mmol/L Chloride (98-107) mmol/L Carbon Dioxide (21-32) mmol/L Anion Gap (3-11) BUN (7-18) mg/dl Creatinine (0.6-1.2) mg/dl Est Cr Clr Drug Dosing ml/min Est GFR ( Amer) Est GFR (Non-Af Amer) BUN/Creatinine Ratio (10-20) Glucose (70-99) mg/dl POC Glucose (70-99) Estimat Average Glucose mg/dl Hemoglobin A1c (4.5-5.6) % Calcium (8.5-10.1) mg/dl Phosphorus (2.5-4.9) mg/dl Magnesium (1.8-2.4) mg/dl Total Bilirubin (0.2-1) mg/dl Direct Bilirubin (0-0.2) mg/dl AST (15-37) U/L ALT (12-78) U/L Alkaline Phosphatase (45-117) U/L Troponin I (0-0.045) ng/ml Total Protein (6.4-8.2) gm/dl Albumin (3.4-5.0) gm/dl Triglycerides (0-150) mg/dl Cholesterol (0-200) mg/dl LDL Cholesterol, Calc mg/dl VLDL Cholesterol, Calc mg/dl HDL Cholesterol mg/dl Cholesterol/HDL Ratio Vitamin B12 (211-911) pg/ml Folate (>5.38) ng/ml TSH (0.300-4.500) uIu/ml Lyme Disease IgG Ab Negative (Negative) Lyme Disease IgM Ab Negative (Negative) Blood Type Antibody Screen Imaging Data Radiologist's Impression: Radiology results as stated below per my review and the radiologist's interpretation: CTA ANGIOGRAPHY OF THE HEAD CLINICAL HISTORY: aphasia COMPARISON STUDY: MRA of the head October 14, 2017. TECHNIQUE: Helical axial images of the head were obtained following uneventful intravenous administration of 119 cc of Optiray 320. Automated exposure control was utilized for the study. A dose lowering technique was utilized adhering to the principles of ALARA. FINDINGS: Please note that the CTA of the neck will be reported separately. The CT of the head will also be reported separately. No acute intracranial hemorrhage, midline shift or mass effect is present. Ventricular dilatation is stable. White matter hypodensity suggests small vessel disease. There is moderate atherosclerotic plaque within the bilateral cavernous carotids without significant stenosis. The bilateral M1, M2, A1 and A2 segments are patent. Posterior circulation is also intact. There is no intracranial aneurysm or dissection. IMPRESSION: Unremarkable CTA of the head for age. Electronically signed by: Nik Bolton M.D. 09/17/2018 9:[address] OF THE HEAD WITHOUT CONTRAST CLINICAL HISTORY: Stroke evaluation COMPARISON STUDY: MRI of the brain October 14, 2017. TECHNIQUE: Helical axial images of the head were obtained without IV contrast. Automated exposure control was utilized for the study. A dose lowering technique was utilized adhering to the principles of ALARA. FINDINGS: No acute intracranial hemorrhage, midline shift or mass effect is present. Ventricular dilatation is unchanged. The basilar cisterns are patent. There are no extra-axial collections. White matter hypodensities are unchanged. These suggest small vessel disease. An 8 mm hypodensity within the left internal capsule is noted. There are no significant calvarial abnormalities. IMPRESSION: 1. No acute intracranial hemorrhage or mass effect. Discussed with Dr. Proctor at time of dictation. 2. 8 mm hypodensity within the left internal capsule which represents an age indeterminate lacunar infarct. Electronically signed by: Nik Bolton M.D. 09/17/2018 8:[address] ANGIOGRAPHY OF THE NECK WITH CONTRAST CLINICAL HISTORY: aphasia COMPARISON STUDY: No previous studies for comparison. Technique: CT angiography of the carotid and vertebral arteries was obtained using Optiray 320 IV and 3D reconstruction on an independent workstation. NASCET criteria was utilized. Automated exposure control was utilized for the study. A dose lowering technique was utilized adhering to the principles of ALARA. CT DOSE: 1042.82 mGy.cm Findings: Please note that the CTA of the head will be reported separately. Lung apices are clear. There is no cervical lymphadenopathy. The bilateral vertebral arteries are patent. There is mild plaque within the bilateral carotid bifurcations without stenosis. There is no dissection. There is no aneurysm within the neck. IMPRESSION: No stenosis or dissection within the major vessels of the neck. Mild atherosclerotic plaque. Electronically signed by: Nik Bolton M.D. 09/17/2018 9:04 PM ECG Data Attestation: I personally reviewed and interpreted this ECG as follows: Indication: other (CVA) Rate (beats per minute): 83 Rhythm: sinus rhythm Findings: + other (Normal axis, baseline artifact noted.); no acute ischemic change Blood Pressure Blood Pressure Findings: Elevated blood pressure Blood Pressure Disposition: further management by hospitalist HAKEEM Alexandra The patient is a 73-year-old woman with a past medical history of hypertension, hyperlipidemia, question of TIAs who presents to emergency department with episode of syncope and aphasia that occurred suddenly at 1930 per hpi. Stroke alert was activated prior to arrival on med command call. Patient was sent directly to CT upon EMS arrival. On arrival the patient is alert and mildly confused but no acute distress, afebrile stable vital signs. On exam the patient exhibits mildly poor attention with mild confusion and difficulty with word finding. However there is no dysarthria. EOMI. No nystamgus. PEARRL. Face is symmetric. Intact finger to nose. 5/5 strength and SILT x [address] extremities. EKG without acute ischemia. CT head negative for bleed however with 8 mm hypodensity of the left internal capsule suggestive of age-indeterminate infarct. CTA of the head and neck unremarkable. Telestroke performed by Dr. Katz, and we agree that patient is not a TPA candidate given the minimal severity of patient's symptoms at this time. Recommends admission for 24-hour observation and for MRI and EEG. Patient can resume her daily aspirin. Case was discussed [place]. Che[place], [facility] [place], who will evaluate the patient for admission. Impression & Plan Syncope, Stroke-like symptoms Discharge Plan Visit Data *Final* Discharge Date/Time: 09/17/18 23:52 Chief Complaint: Stroke Alert Stated Complaint: stroke alert ED Provider: Kalin Proctor Discharge Problem: Syncope, Stroke-like symptoms Patient Disposition: Admitted As Inpatient Discharge Instructions Interventions: ED Discharge Assessment Last Done: 09/17/18 23:52 The scribe's documentation has been prepared under my direction and personally reviewed by me in its entirety. I confirm that the note above accurately reflects all work, treatment, procedures, and medical decision making performed by me.
--- NOTE | 2018-09-17 23:19 | History & Physical Report ---
Date of Service September 17, 2018 Assessment & Plan (1) Syncope: Patient with possible syncope, possible seizure, possible stroke. Symptoms do not seem to be secondary to CVA, however, age-indeterminate lacunar infarct discovered on CT. Physical exam significant for expressive aphasia, orientation to self only and possibly some coordination deficits. describes approximately 1 year of functional decline - balance issues as well as word finding. ?old CVA a year ago? ?medicaiton effects - FLexeril, Opiates, Ambien? -Admit to PCU, tele monitoring, Neuro checks, swallow eval -Check MRI brain -Check EEG -Check Echocardiogram -Obtain records from [facility] - patient admitted with similar symptoms and had a complete workup -Will check B12/Folate/Lyme/RPR/TSH for AMS workup -Increase Lipitor to 40mg po daily -Change ASA to Plavix 75mg po daily -Neurology consultation - appreciate assistance with this case (2) Hypertension: BP 173/81 -Continue to monitor (3) High cholesterol: Lipitor increased to 40mg po daily (4) Depression: Continue Celexa and Cymbalta (5) Anxiety: Continue Cymbalta and Celexa (6) Acid reflux: Continue Omeprazole F/E/N - [place]. K repletion. NPO for now Ppx - SCDs to bilateral LE Code - DNR per discussion with patient Dispo - PCU/Tele History of Present Illness Chief Complaint: ?syncope vs stroke like symptoms Primary Care Provider: Elizabeth Ramirez Mrs. Meza is a 73yo female with history of HTN, HLP, remote history of breast cancer, prior TIA presenting with syncopal episode. Around 19:00 patient was sitting on the sofa when she passed out. Her was in the other room and states that he found her slumped over. She was breathing but unresponsive. No myoclonic jerking, rigidity or eye rolling. She did have urinary incontinence. reports that she was passed out for 15-20 minutes. He called EMS and when the arrived she began to wake up, however, she was not responding verbally and did not recognize her . Patient has no recollection of the event. She denies chest pain/palpitations/dizziness/ numbness/weakness/SOB. Patient does report frequent headaches, almost daily. She is unable to further describe these headaches. No fevers, neck stiffness. Pain is relieved with Tylenol. reports that patient has had approximately 1 year of functional decline - she has difficulty with ambulating secondary to balance issues as well as episodes of expressive aphasia or inappropriate words use. Her calls these episodes "sillly spells", last one approximately 10 days ago. She ambulates with a cane and has been falling frequently since May Allergies Allergy/AdvReac Type Severity Reaction Status Date / Time adhesive Allergy Unknown RASH AND Verified 11/20/16 22:50 SORE No Known Drug Allergies Allergy Unknown . Verified 02/14/15 14:08 Home Medications Home Medications Medication Instructions Recorded Confirmed Type aspirin [Aspir-81] 81 mg PO UD 09/17/18 09/17/18 History atorvastatin [Lipitor] 10 mg PO DAILY 09/17/18 09/17/18 History celecoxib [Celebrex] 200 mg PO UD 09/17/18 09/17/18 History cyclobenzaprine 10 mg PO BID PRN 09/17/18 09/17/18 History duloxetine [Cymbalta] 20 mg PO BID 09/17/18 09/17/18 History escitalopram oxalate [Lexapro] 10 mg PO DAILY 09/17/18 09/17/18 History fluticasone [Flonase Allergy 0 spray INTRANASAL UD 09/17/18 09/17/18 History Relief] hydrocodone-acetaminophen [[place]] 1 - 2 tab PO Q4 PRN 09/17/18 09/17/18 History lubiprostone [Amitiza] 24 mcg PO BID 09/17/18 09/17/18 History omeprazole 40 mg PO DAILY 09/17/18 09/17/18 History zolpidem [Ambien] 10 mg PO HS 09/17/18 09/17/18 History Past Med/Surg History Medical History Chronic back pain Depression Anxiety High cholesterol (Chronic) Hypertension (Chronic) Acid reflux (Chronic) Breast cancer Chronic back pain (Chronic) Surgical History H/O: hysterectomy History of back surgery Social History Current Living Situation: Spouse Feels Safe at Home: Yes Smoking Status: Never smoker Hx Alcohol Use: No Hx Substance Use: Yes substance use type: prescription drug Beliefs That Will Affect Care: None Preferred Language: Malawian Communication Ability: Effective Copy Preparer Required: No Review of Systems All systems reviewed & are unremarkable except as noted in HPI & below Physical Exam 2 Vital Signs (Past 24 Hours): Last Vital Signs Temp 36.6 C 09/17/18 20:35 Pulse 79 09/17/18 21:58 Resp 16 09/17/18 21:58 BP 154/91 H 09/17/18 21:58 Pulse Ox 97 09/17/18 21:58 Physical Exam: General: patient resting comfortably, NAD, non-toxic in appearance, AA&O to self Skin: warm, dry, intact, no rashes or lesions HEENT: NC/AT, PERRL, EOMI, anicteric sclera, conjunctiva without injection, external ear normal to inspection and nontender, nares patent, dry mucus membranes, dentition intact, no oropharyngeal lesions, neck supple, trachea midline, no LAD, no thyromegaly, no JVD Heart: +S1/S2, regular, no m/r/g Lungs: equal air entry bilaterally, no rales/rhonchi/wheezes Abd: +BS, soft, NT/ND, no masses/organomegaly/ascites Ext: warm, 2+ pulses in UE/LE bilaterally, no clubbing/cyanosis or edema Neuro: nonfocal, patient AA&O to self, expressive aphasia with slow speech and word finding difficulties, CN II-XII grossly intact, sensation to light touch intact, MS 5/5 in UE/LE. Patient did not wish to complete finger/nose and heel/ nuno testing. Results & Data Laboratory Results Lab Results 09/17/18 09/17/18 09/17/18 Range/Units 20:52 20:52 Unknown WBC 8.57 (4.8-10.8) K/uL RBC 4.35 (4.2-5.4) M/uL Hgb 11.8 L (12.0-16.0) g/dL Hct 37.1 (37-47) % MCV 85.3 (80-100) fL MCH 27.1 (25-34) pg MCHC 31.8 L (32-36) g/dL RDW Std Deviation 45.3 (36.4-46.3) fL RDW Coeff of [place] 14.6 H (11.5-14.5) % Plt Count 304 (130-400) K/uL MPV 9.8 (7.4-10.4) fL Immature Gran % (Auto) 0.1 % Neut % (Auto) 56.1 % Lymph % (Auto) 34.8 % [place] % (Auto) 7.6 % Eos % (Auto) 0.9 % Baso % (Auto) 0.5 % Immature Gran # (Auto) 0.01 (0.00-0.02) K/uL Neut # (Auto) 4.81 (1.4-6.5) K/uL Lymph # (Auto) 2.98 (1.2-3.4) K/uL [place] # (Auto) 0.65 H (0.11-0.59) K/uL Eos # (Auto) 0.08 (0-0.5) K/uL Baso # (Auto) 0.04 (0-0.2) K/uL PT (9.0-12.0) Seconds INR (0.9-1.1) APTT (21.0-31.0) Seconds PTT Ratio Sodium (136-145) mmol/L Potassium (3.5-5.1) mmol/L Chloride (98-107) mmol/L Carbon Dioxide (21-32) mmol/L Anion Gap (3-11) BUN (7-18) mg/dl Creatinine (0.6-1.2) mg/dl Est Cr Clr Drug Dosing ml/min Est GFR ( Amer) Est GFR (Non-Af Amer) BUN/Creatinine Ratio (10-20) Glucose (70-99) mg/dl POC Glucose 112 H (70-99) Calcium (8.5-10.1) mg/dl Phosphorus (2.5-4.9) mg/dl Magnesium (1.8-2.4) mg/dl Troponin I (0-0.045) ng/ml TSH (0.300-4.500) uIu/ml Blood Type A Positive Antibody Screen NEGATIVE 09/17/18 09/17/18 Range/Units Unknown Unknown WBC (4.8-10.8) K/uL RBC (4.2-5.4) M/uL Hgb (12.0-16.0) g/dL Hct (37-47) % MCV (80-100) fL MCH (25-34) pg MCHC (32-36) g/dL RDW Std Deviation (36.4-46.3) fL RDW Coeff of [place] (11.5-14.5) % Plt Count (130-400) K/uL MPV (7.4-10.4) fL Immature Gran % (Auto) % Neut % (Auto) % Lymph % (Auto) % [place] % (Auto) % Eos % (Auto) % Baso % (Auto) % Immature Gran # (Auto) (0.00-0.02) K/uL Neut # (Auto) (1.4-6.5) K/uL Lymph # (Auto) (1.2-3.4) K/uL [place] # (Auto) (0.11-0.59) K/uL Eos # (Auto) (0-0.5) K/uL Baso # (Auto) (0-0.2) K/uL PT 10.0 (9.0-12.0) Seconds INR 1.0 (0.9-1.1) APTT 26.0 (21.0-31.0) Seconds PTT Ratio 1.0 Sodium 138 (136-145) mmol/L Potassium 2.6 L (3.5-5.1) mmol/L Chloride 100 (98-107) mmol/L Carbon Dioxide 31 (21-32) mmol/L Anion Gap 7.0 (3-11) BUN 12 (7-18) mg/dl Creatinine 0.83 (0.6-1.2) mg/dl Est Cr Clr Drug Dosing 67.1 ml/min Est GFR ( Amer) 81.7 Est GFR (Non-Af Amer) 70.4 BUN/Creatinine Ratio 14.7 (10-20) Glucose 122 H (70-99) mg/dl POC Glucose (70-99) Calcium 8.7 (8.5-10.1) mg/dl Phosphorus 3.9 (2.5-4.9) mg/dl Magnesium 2.2 (1.8-2.4) mg/dl Troponin I < 0.015 (0-0.045) ng/ml TSH 2.570 (0.300-4.500) uIu/ml Blood Type Antibody Screen Diagnostic Findings CT OF THE HEAD WITHOUT CONTRAST CLINICAL HISTORY: Stroke evaluation COMPARISON STUDY: MRI of the brain October 14, 2017. TECHNIQUE: Helical axial images of the head were obtained without IV contrast. Automated exposure control was utilized for the study. A dose lowering technique was utilized adhering to the principles of ALARA. FINDINGS: No acute intracranial hemorrhage, midline shift or mass effect is present. Ventricular dilatation is unchanged. The basilar cisterns are patent. There are no extra-axial collections. White matter hypodensities are unchanged. These suggest small vessel disease. An 8 mm hypodensity within the left internal capsule is noted. There are no significant calvarial abnormalities. IMPRESSION: 1. No acute intracranial hemorrhage or mass effect. Discussed with Dr. Proctor at time of dictation. 2. 8 mm hypodensity within the left internal capsule which represents an age indeterminate lacunar infarct. Electronically signed by: Nik Bolton M.D. 09/17/2018 8:49 PM Dictated: 09/17/182042 Transcribed: 09/17/182042 CTA ANGIOGRAPHY OF THE HEAD CLINICAL HISTORY: aphasia COMPARISON STUDY: MRA of the head October 14, 2017. TECHNIQUE: Helical axial images of the head were obtained following uneventful intravenous administration of 119 cc of Optiray 320. Automated exposure control was utilized for the study. A dose lowering technique was utilized adhering to the principles of ALARA. FINDINGS: Please note that the CTA of the neck will be reported separately. The CT of the head will also be reported separately. No acute intracranial hemorrhage, midline shift or mass effect is present. Ventricular dilatation is stable. White matter hypodensity suggests small vessel disease. There is moderate atherosclerotic plaque within the bilateral cavernous carotids without significant stenosis. The bilateral M1, M2, A1 and A2 segments are patent. Posterior circulation is also intact. There is no intracranial aneurysm or dissection. IMPRESSION: Unremarkable CTA of the head for age. Electronically signed by: Nik Bolton M.D. 09/17/2018 9:06 PM Dictated: 09/17/182103 Transcribed: 09/17/182103 CT ANGIOGRAPHY OF THE NECK WITH CONTRAST CLINICAL HISTORY: aphasia COMPARISON STUDY: No previous studies for comparison. Technique: CT angiography of the carotid and vertebral arteries was obtained using Nfoshare 320 IV and 3D reconstruction on an independent workstation. NASCET criteria was utilized. Automated exposure control was utilized for the study. A dose lowering technique was utilized adhering to the principles of ALARA. CT DOSE: 1042.82 mGy.cm Findings: Please note that the CTA of the head will be reported separately. Lung apices are clear. There is no cervical lymphadenopathy. The bilateral vertebral arteries are patent. There is mild plaque within the bilateral carotid bifurcations without stenosis. There is no dissection. There is no aneurysm within the neck. IMPRESSION: No stenosis or dissection within the major vessels of the neck. Mild atherosclerotic plaque. Electronically signed by: Nik Bolton M.D. 09/17/2018 9:04 PM Dictated: 09/17/182100 Transcribed: 09/17/182100 ECG Additional Comments: The study shows NSR at 83bpm, SD=750, QRS=78, OIl=020, no evidene of acute ischemia Code Status & VTE Plan Code Status DNR VTE Prophylaxis Plan VTE Prophylaxis will be ordered: Yes Critical Care Time Critical Care Time: No _ (1) Syncope Encounter type: Syncope type: unspecified Qualified Code(s): R55 - Syncope and collapse (2) Hypertension Hypertension type: essential hypertension Qualified Code(s): I10 - Essential (primary) hypertension
[2018-09-18] MEDS ORDERED: CYCLOBENZAPRINE HCL 10 MG TAB PO PRN (00:23)
[2018-09-18] MEDS ORDERED: HYDROCODONE/ACETAMOPHEN 5/325MG TAB PO PRN (00:23)
[2018-09-18] MEDS ORDERED: ONDANSETRON INJ 2 MG/ML 2 ML VIAL IV PRN (00:23)
[2018-09-18] MEDS ORDERED: ACETAMINOPHEN 325 MG TAB PO PRN (00:23)
[2018-09-18] MEDS ORDERED: PHARMACIST DISCHARGE MED REC CONSULT PRN (00:23)
[2018-09-18 00:49] LABS: Phosphorus 3.9 mg/dl (2.5-4.9)
[2018-09-18] MEDS ORDERED: POTASSIUM CHLORIDE 20 MEQ TABCR PO ONE ×2 (01:00→15:45)
[2018-09-18] MEDS ORDERED: ACETAMINOPHEN 65 ML IV PRN (01:30)
[2018-09-18] MEDS: POTASSIUM CHLORIDE / WTR 10 MEQ/100 ML PLCT IV SCH ×2 (03:05→05:16)
[2018-09-18] MEDS ORDERED: LUBIPROSTONE 8 MCG CAP PO SCH (09:00)
[2018-09-18] MEDS ORDERED: NON-FORMULARY MEDICATION (Omeprazole [Omeprazole] 40 MG) PO SCH (09:00)
[2018-09-18] MEDS ORDERED: ESCITALOPRAM OXALATE 10 MG TAB PO SCH (09:00)
[2018-09-18] MEDS ORDERED: DULOXETINE HCL 20 MG CAP PO SCH (09:00)
[2018-09-18] MEDS ORDERED: CLOPIDOGREL BISULFATE 75 MG TAB PO SCH (09:00)
[2018-09-18] MEDS ORDERED: FLUTICASONE PROPIONATE NA SPR 16 GM BTL NAE SCH (09:00)
[2018-09-18] MEDS ORDERED: ATORVASTATIN 40 MG TAB PO SCH (09:00)
[2018-09-18] MEDS ORDERED: POTASSIUM CHLORIDE 20 MEQ TABCR PO STA (09:09)
--- NOTE | 2018-09-18 10:09 | Neurology Consultation ---
Date of Consultation September 18, 2018 Assessment & Plan (1) Stroke: This patient's recently completed brain MRI does suggest a small acute ischemic stroke within the right periventricular region. She has a chronic lacunar infarct within the left internal capsule which likely explains her mild flattening of the right nasolabial fold and mild dysmetria finger to nose on the right. Her CT angiography of the neck reveals mild atherosclerotic change but is otherwise unremarkable. No known history of atrial fibrillation and no evidence of cardioembolic source on recently completed transthoracic echocardiogram. Hypertension and hypercholesterolemia are stroke risk factors for this patient. It looks like her atorvastatin dose was increased and her daily low-dose aspirin was discontinued in favor of Plavix. These medication adjustments are appropriate. Continue to monitor patient's blood pressure, permissive hypertension acceptable for now, systolic blood pressure goal 140- 160 mmHg. Consultations with PT/OT/speech therapy. History of Present Illness Reason for Consultation: Possible stroke Requesting Physician: Maggie Cheney DO Attending Physician: Nataly Gracia History of Present Illness The patient is a 73-year old female who presented to the emergency department last night for further assessment of an episode of loss of consciousness that occurred at home, around 7 PM. According to her , the patient slumped over while she was sitting on the couch. He did not observe any abnormal movements or seizure-like activity at that time. Her loss of consciousness persisted for about 5 minutes and was followed by a period of confusion with inability to speak. The patient has no recollection for this episode and denies experiencing any particular warning signs. She does not remember being taken to the hospital or any of her assessment swelling the emergency department. She does not have a known history of epilepsy or seizure disorder. The patient does report a past medical history of stroke that occurred about 10 years ago and resulted in some transient left-sided numbness. She takes daily low-dose aspirin and atorvastatin as an outpatient. A CT of the head suggested an age indeterminate lacunar infarct within the left internal capsule. CT angiography of the head and neck were unremarkable. She has been modestly hypertensive during this hospitalization. Electrocardiogram reveals a sinus rhythm, 83 bpm. An echocardiogram reveals a normal ejection fraction, no PFO. Currently, the patient complains of a low-grade frontal headache which she admits is not unusual for her. She typically experiences headaches several times per week although denies a history of migraine. She otherwise denies any specific neurological symptoms that may be new such as weakness, sensory loss, changes in vision, or problems with speech or swallowing. She expresses a strong desire to leave the hospital and go home. She refused an EEG earlier this morning. Allergies Allergy/AdvReac Type Severity Reaction Status Date / Time adhesive Allergy Unknown RASH AND Verified 11/20/16 22:50 SORE No Known Drug Allergies Allergy Unknown . Verified 02/14/15 14:08 Home Medications Home Medications Medication Instructions Recorded Confirmed Type aspirin [Aspir-81] 81 mg PO UD 09/17/18 09/17/18 History atorvastatin [Lipitor] 10 mg PO DAILY 09/17/18 09/17/18 History celecoxib [Celebrex] 200 mg PO UD 09/17/18 09/17/18 History cyclobenzaprine 10 mg PO BID PRN 09/17/18 09/17/18 History duloxetine [Cymbalta] 20 mg PO BID 09/17/18 09/17/18 History escitalopram oxalate [Lexapro] 10 mg PO DAILY 09/17/18 09/17/18 History fluticasone [Flonase Allergy 0 spray INTRANASAL UD 09/17/18 09/17/18 History Relief] hydrocodone-acetaminophen [[place]] 1 - 2 tab PO Q4 PRN 09/17/18 09/17/18 History lubiprostone [Amitiza] 24 mcg PO BID 09/17/18 09/17/18 History omeprazole 40 mg PO DAILY 09/17/18 09/17/18 History zolpidem [Ambien] 10 mg PO HS 09/17/18 09/17/18 History Patient History Medical History Chronic back pain Depression Anxiety High cholesterol (Chronic) Hypertension (Chronic) Acid reflux (Chronic) Breast cancer Chronic back pain (Chronic) Surgical History H/O: hysterectomy History of back surgery Family History Other CVA (cerebral vascular accident) Social History Current Living Situation: Spouse Feels Safe at Home: Yes Smoking Status: Never smoker Hx Alcohol Use: No Hx Substance Use: Yes substance use type: prescription drug Beliefs That Will Affect Care: None Preferred Language: Latvian Communication Ability: Effective Esthetician/Spa Coordinator Required: No Review of Systems Constitutional: no fever and no chills Eyes: no blind spots and no diplopia Ear, Nose, Mouth, Throat: no hearing loss Respiratory: no cough and no dyspnea Cardiovascular: no chest pain and no palpitations Gastrointestinal: no nausea and no vomiting Genitourinary (Female): no dysuria Musculoskeletal: no myalgia Integumentary: no rash and no lesions Neurologic: as per Subjective / HPI Psychiatric: + depression and + anxiety Hematologic / Lymphatic: no easy bleeding and no easy bruising Physical Exam 2 Vital Signs (Past 24 Hours): Last Vital Signs Temp 36.5 C 09/18/18 07:18 Pulse 89 09/18/18 07:18 Resp 16 09/18/18 07:18 BP 166/80 H 09/18/18 07:18 Pulse Ox 94 09/18/18 07:18 Physical Exam: The patient is a well-developed, well-nourished elderly female. She is alert and fully oriented. Recent and remote memory intact. Attention and concentration normal. Patient exhibits a normal spontaneous speech pattern. She is able to name objects and repeat phrases. She exhibits an age-appropriate fund of knowledge and normal vocabulary. Visual hanson full to confrontation. Visual acuity normal. Pupils equal round react to light and accommodation. Eye movements normal. There is no nystagmus. Facial sensation intact bilaterally. There is mild flattening of the right nasolabial fold. Hearing intact. Palate elevates to midline. Shoulder shrug intact. Tongue protrudes to midline. Sensation intact all modalities in all 4 limbs. Deep tendon reflexes are intact and symmetrical for the arms and legs bilaterally. Plantar responses downgoing bilaterally. There is no dysdiadochokinesia although there is mild dysmetria finger to nose on the right. No dysmetria with finger to nose on the left or with heel to nuno bilaterally. Ophthalmoscopic examination reveals normal-appearing optic disks and posterior segments. No papilledema or hemorrhages. Carotid pulses normal bilaterally, no bruits to auscultation. Gait and station not tested due to safety concerns. Muscle strength grossly normal for all 4 limbs proximally and distally. There is perhaps very mild right upper extremity pronator drift. Muscle tone normal throughout. No atrophy. No abnormal movements observed. Results & Data Diagnostic Findings I reviewed the images from this patient's recently completed brain MRI are available. The radiologist interpretation is pending. There is evidence of a small area of restricted diffusion within the right periventricular region suggestive of a small acute infarct. There is not appear to be any evidence of an acute infarct within the left internal capsule as potentially suggested by the previous CT of the head. There is evidence of chronic infarct in this area , however as well as evidence of moderate chronic cerebrovascular disease throughout the cerebral hemispheres and generalized atrophy.
[2018-09-18] MEDS ORDERED: GADOBUTROL 65ML VIAL IV PRN (10:33)
--- NOTE | 2018-09-18 10:49 | Magnetic Resonance Report ---
MRI OF THE BRAIN WITHOUT AND WITH IV CONTRAST CLINICAL HISTORY: Stroke APHASIA COMPARISON STUDY: CT scan the head dated 09/17/2018, MRI the brain dated 10/14/2017 TECHNIQUE: MRI of the brain was performed from the vertex to the skull base utilizing various T1 and T2 weighted sequences. Following the IV administration of 7.5 mL of Gadavist contrast, additional enh anced images were obtained. FINDINGS: Sagittal T1, axial diffusion, proton density and T2 weighted axial, coronal FLAIR, and pre and post a xial T1-weighted images were acquired. These were supplemented with post gadolinium coronal T1 weight ed images. No intra or extra-axial mass lesions are visualized. There is a 7 mm focus of restricted water diffusion just superior lateral to the right external capsu le. The findings are consistent with a small acute infarct. No additional foci restricted water diffu afua are evident. There is ventricular dilatation, similar to the prior study and likely secondary to volume loss Proton density T2-weighted and FLAIR images reveal there are persistent extensive confluent foci of i ncreased T2 and FLAIR signal within the periventricular white matter, likely on a small vessel basis. There are old lacunar infarcts in left basal ganglia and cerebellum. There are no abnormal flow voids. There is no evidence of pathologic enhancement. IMPRESSION: 1. 7 mm focus of restricted water diffusion within the right hemispheric white matter just superior l ateral to the right external capsule. The findings are indicative of acute infarct 2. Otherwise stable MRI the brain with areas of old lacunar infarction, white matter disease likely a small vessel basis, and mild ventricular dilatation likely secondary to volume loss Electronically signed by: Franc Mims M.D. 09/18/2018 10:47 AM
[2018-09-18] MEDS ORDERED: PANTOprazole 40 MG in SYRINGE 0 ML IV SCH (11:00)
[2018-09-18 11:47] LABS: Basophils # (auto) 0.02 K/uL (0-0.2); Basophils % (auto) 0.3 %; Eosinophils # (auto) 0.04 K/uL (0-0.5); Eosinophils % (auto) 0.6 %; Hematocrit (blood only) 36.2 % (37-47); Hemoglobin 11.6 g/dL (12.0-16.0); Immature Granulocytes # (auto) 0.01 K/uL (0.00-0.02); Immature Granulocytes % (auto) 0.1 %; Lymphocytes % (auto) 18.4 %; Mean Corpuscular Volume 83.4 fL (80-100); Mean Platelet Volume 9.7 fL (7.4-10.4); Monocytes # (auto) 0.62 K/uL (0.11-0.59); Monocytes % (auto) 8.8 %; Neutrophils # (auto) 5.06 K/uL (1.4-6.5); Neutrophils % (auto) 71.8 %; Platelet Count 312 K/uL (130-400); RDW Coefficient of Variation 14.6 % (11.5-14.5); RDW Standard Deviation 44.4 fL (36.4-46.3); Red Blood Count 4.34 M/uL (4.2-5.4); White Blood Count 7.05 K/uL (4.8-10.8)
[2018-09-18 12:16] LABS: Albumin Level 3.6 gm/dl (3.4-5.0); BUN Creatinine Ratio 15.3 (10-20); Calcium 8.7 mg/dl (8.5-10.1); Creatinine Clr Calc Pharmacy 86.9 ml/min; Est GFR (African American) 106.1; Est GFR (Non-African American) 91.6; Potassium 2.8 mmol/L (3.5-5.1)
[2018-09-18 12:19] LABS: Bilirubin Direct 0.1 mg/dl (0-0.2); Bilirubin,Total 0.5 mg/dl (0.2-1); Total Protein 7.6 gm/dl (6.4-8.2)
[2018-09-18 12:24] LABS: Folate (Folic Acid) 10.45 ng/ml (>5.38)
[2018-09-18 12:43] LABS: Estimated Average Glucose 126 mg/dl
[2018-09-18 14:58] VITALS: PULSE 87; TEMP 98.1; O2SAT 95
[2018-09-18 15:08] LABS: Lyme Ab IgG w/WB Rflx Negative (Negative); Lyme Ab IgM w/WB Rflx Negative (Negative)
--- NOTE | 2018-09-18 15:37 | Discharge Summary ---
Date of Service September 18, 2018 Admission HPI Per Admitting Provider Mrs. Meza is a 73yo female with history of HTN, HLP, remote history of breast cancer, prior TIA presenting with syncopal episode. Around 19:00 patient was sitting on the sofa when she passed out. Her was in the other room and states that he found her slumped over. She was breathing but unresponsive. No myoclonic jerking, rigidity or eye rolling. She did have urinary incontinence. reports that she was passed out for 15-20 minutes. He called EMS and when the arrived she began to wake up, however, she was not responding verbally and did not recognize her . Patient has no recollection of the event. She denies chest pain/palpitations/dizziness/ numbness/weakness/SOB. Patient does report frequent headaches, almost daily. She is unable to further describe these headaches. No fevers, neck stiffness. Pain is relieved with Tylenol. reports that patient has had approximately 1 year of functional decline - she has difficulty with ambulating secondary to balance issues as well as episodes of expressive aphasia or inappropriate words use. Her calls these episodes "sillly spells", last one approximately 10 days ago. She ambulates with a cane and has been falling frequently since May Principal Diagnosis TIA Discharge Exam Constitutional WD/WN, vitals as above Eyes PERRL, conjunctivae normal, anicteric sclerae ENMT external ear and nose normal, oropharynx normal Respiratory normal respiratory effort, lungs clear to auscultation Cardiovascular RRR, no murmur, no edema Gastrointestinal (Abdomen) normal bowel sounds, soft, nontender, no hepatosplenomegaly Skin no rashes, warm and dry Neurologic patellar DTR's 2+ bilat, sensation intact and PERRL, EOMI, accommodation nl, no face palsy, no dysarthria Psychiatric A+Ox3, euthymic affect Discharge Data Allergies Allergy/AdvReac Type Severity Reaction Status Date / Time adhesive Allergy Unknown RASH AND Verified 09/19/18 16:19 SORE No Known Drug Allergies Allergy Unknown . Verified 09/19/18 16:19 Consultations 09/17/18 21:19 ED Decision to Admit Stat 09/18/18 00:23 Consult Case Management - Discharge Planning Routine Consult Neurology Routine Ordered Studies 09/17/18 20:32 CT angio head w con Stat CT angio neck with con Stat CT head/brain wo con Stat 09/18/18 00:23 MR brain wo/w con Routine Hospital Course (1) Stroke: 73yo F with PMH of HTN, HLD, remote history of breast cancer, prior TIA presented to [facility] 09/18 with syncopal episode. Around 19:00 day before patient was sitting on the sofa when she passed out, found her slumped over breathing but unresponsive for about 15-20 min. No myoclonic jerking, rigidity or eye rolling noted by , but did have urinary incontinence. Pt was not responding verbally and did not recognize her husban per EMS. Pt has no recollection of the event. notes 1 year of functional decline, difficulty ambulating 2/2 balance issues as well as episodes of expressive aphasia and inappropriate words use. Last such occurence was 10 days ago. In ER, Unremarkable CTA of the head for age. CTA neck showed No stenosis or dissection within the major vessels of the neck, only Mild atherosclerotic plaque. Head CT showed No acute intracranial hemorrhage or mass effect, but a 8 mm hypodensity within the left internal capsule which represents an age indeterminate lacunar infarct. F/u Brain MRI showed 7 mm focus of restricted water diffusion within the right hemispheric white matter just superior lateral to the right external capsule indicative of an acute infarct. Pt has no known history of atrial fibrillation and no evidence of cardioembolic source on recently completed transthoracic echocardiogram. In ER, pt's Lipitor was increased to 40mg po daily and ASA was changed to Plavix 75mg po daily. Of note, throughout stay, pt was insistent that she would like to be d/c. The following was the medical management during her stay here. For pt's syncope , she was admitted to PCU with tele monitoring. Neurology was consulted: Hypertension and hypercholesterolemia are stroke risk factors for this patient. Atorvastatin dose was increased and her daily low-dose aspirin was discontinued in favor of Plavix. These medication adjustments are appropriate. Pt's systolic blood pressure goal 140-160 mmHg. EEG testing not warranted per neurology. PT/OT evaluated pt and recommended home PT/OT on d/c. Speech therapy evaluated and recommended regular diet. B12/Folate/Lyme/TSH for AMS workup all came back normal. Pt's Anxiety/Depression managed with Lexapro, pt will continue home Celexa and Cymbalta on d/c. Pt's GERD managed with Omeprazole. Pt' s K+ was noted to be 2.6 on admission. She refused IV K rider, so pt was given oral potassium 40 mEq x2. Pt should be f/u with this on d/c and have repeat labs to monitor. DVT prophylaxis with SCDs to bilateral LE. At time of d/c, pt had no other acute concerns or complaints. Total Time Total Time Spent Total Time Spent (In Minutes): 30 min Discharge Plan Discharge Items Patient Disposition: Home - Self-Care Reason For Visit: ?CVA Discharge Diagnosis: TIA Discharge Goals: Improve disease control and Improve function Activity: Per 'Additional Instructions' section Non-emergency contact: Primary Care Provider Call non-emergency contact if: you have any medication questions and your symptoms worsen Diet: Heart Healthy Addtl Provider Instructions: You were admitted for a mini-stroke (TIA). MRI of your brain showed a 7 mm focus of restricted water diffusion within the right hemispheric white matter just superior lateral to the right external capsule, which were indicative of an acute infarct. Please follow the below instructions on discharge: -continue taking Lipitor 40 mg daily -continue taking Plavix 75 mg daily -Stop your aspirin use until you see your PCP -please follow up with your PCP within one week -please get blood work done tomorrow to check your potassium levels. They were low on admission and you have been receiving oral supplements. -if your symptoms return, please come back into ER. Prescriptions: New atorvastatin 40 mg Tablet 40 mg PO QAM Qty: 30 RF: 0 clopidogrel 75 mg Tablet 75 mg PO QAM Qty: 30 RF: 0 Continue celecoxib [Celebrex] 200 mg capsule 200 mg PO UD RF: 0 cyclobenzaprine 10 mg tablet 10 mg PO BID PRN (Reason: MUSCLE SPASMS) RF: 0 hydrocodone-acetaminophen [[place]] 5-325 mg tablet 1 - 2 tab PO Q4 PRN (Reason: Pain) RF: 0 omeprazole 40 mg capsule,delayed release(DR/EC) 40 mg PO DAILY RF: 0 zolpidem [Ambien] 10 mg tablet 10 mg PO HS RF: 0 fluticasone [Flonase Allergy Relief] 50 mcg/actuation spray,suspension Intranasal UD RF: 0 escitalopram oxalate [Lexapro] 10 mg tablet 10 mg PO DAILY RF: 0 duloxetine [Cymbalta] 20 mg capsule,delayed release(DR/EC) 20 mg PO BID RF: 0 lubiprostone [Amitiza] 24 mcg capsule 24 mcg PO BID RF: 0 Discontinued atorvastatin [Lipitor] 10 mg tablet 10 mg PO DAILY RF: 0 aspirin [Aspir-81] 81 mg Tablet,Delayed Release (Dr/Ec) 81 mg PO UD RF: 0 Stand-Alone Forms: [facility] Discharge Orders: Discharge Order (Routine); Ordered 09/18/18 Ordered By: Devan Chowdhury Admission Data Admit Date/Time: 09/17/18 23:13 Attending Provider: Nataly Gracia Admit Provider: Maggie Cheney Primary Care Provider: Elizabeth Ramirez Other Providers: Maggie Cheney ; Coy Fitch ; Ramiro Salcido III ; Nataliia Barrientos ; Kerry Cuba ; Ronal Flor Service: Telemetry Other Interventions: Discharge Summary Assessment (RN) Last Done: 09/18/18 15:36 DC Date/Time DO NOT enter until pt leaves facility: 09/18/18 16:40 Supervising Physician Co-Signing Physician Notes Resident Physician Supervision Note: I independently interviewed and examined the patient and verified the friedman history and physical, reviewed labs and image studies, discussed the case with the resident Dr. Chowdhury and agree with the findings and care plan. Time spent in discharge 35 min Resident Activity Tracking Resident Involvement: Resident Care Provided Care Provided: Adult Hospital Medicine
[2018-09-18 15:41] VITALS: BP 158/74
[2018-09-18] MEDS ORDERED: STROKE PATIENT DISCHARGE STA (16:11)
[2018-09-18] MEDS ORDERED: ZOLPIDEM TARTRATE 10 MG TAB PO SCH (21:00)
[2018-09-19] LABS: Rapid Plasma Reagin Nonreactive (Nonreactive)
--- NOTE | 2018-10-14 06:42 | Coding Query ---
CODING QUERY To promote full compliance with coding requirements relating to patient care, provider participation is requested in all cases of pig farmer uncertainty. Please assist us with the question(s) below: Coding Question(s): PLEASE REVIEW BRAIN MRI AND INDICATE ANY DIAGNOSES BELOW. THANKS. Physician's Response(s): Acute CVA Thank you Tavia Garcia Principal Diagnosis: "that condition established after study, to be chiefly responsible for occasioning the admission of the patient to the hospital for care." Co-Existing Principal Diagnosis: "when two or more diagnoses equally meet the criteria for principal diagnosis as determined by the circumstances of admission, diagnostic work up, and/or therapy provided, and the Alphabetic Index, Tabular List, or another coding guideline does not provide sequencing direction, any one of the diagnoses may be sequenced first." "When the physician has documented what appears to be a current diagnosis in the body of the record, but has not included the diagnosis in the final diagnostic statement, the physician should be asked whether the diagnosis should be added." (Source Coding [facility] 2 QTR90. p3-4) ILIANA
== END 2018-09-18 16:40 | disposition home or self-care (01) | DRG 66 ==
LOC: ED 20:24 → 2S 23:13 → SUATTDRO 23:13 → 2S 23:52

== ENCOUNTER 2018-09-19 14:41 | Inpatient (IN) ==
[2018-09-19] MEDS ORDERED: SODIUM CHLORIDE 0.9% 1000ML 1,000 ML IV ONE (15:00)
--- NOTE | 2018-09-19 15:02 | CT Scan Report ---
CT SCAN OF THE BRAIN WITHOUT IV CONTRAST CLINICAL HISTORY: Strokelike symptoms. COMPARISON STUDY: CT of the brain dated 09/17/2018. MRI of the brain dated 09/18/2018. TECHNIQUE: Unenhanced axial CT scan of the brain is performed from the vertex to the skull base. A do se lowering technique was utilized adhering to the principles of ALARA. CT DOSE: 729.78 mGycm FINDINGS: Brain parenchyma: There are age-related involutional changes noting moderate confluent subcortical a nd periventricular microangiopathic change. There is no hemorrhage, mass effect, or evidence of acute territorial ischemia by CT criteria. There is a chronic lacunar infarct identified in the left basal ganglia. A small chronic lacunar infarct is also seen in the left caudate head. Matthews-white matter di fferentiation is preserved. No extra-axial fluid collection is seen. Ventricles, sulci, cisterns: Prominent secondary to involutional change. Intracranial vasculature: There is atherosclerotic calcification of the cavernous carotid and vertebr al arteries. Calvarium: Unremarkable. Sinuses and mastoids: The visualized paranasal sinuses are clear. The mastoid air cells are well pneu matized. Orbits: The bony orbits are grossly intact. There is evidence of bilateral ocular lens surgery. IMPRESSION: 1. Senescent changes as above with no hemorrhage, mass effect, or evidence of acute territorial ische kristy by CT criteria. 2. The small lacunar infarct seen on the 09/18/2018 MRI was not appreciated by CT. Electronically signed by: Miguel Hernandez M.D. 09/19/2018 3:00 PM
[2018-09-19] MEDS ORDERED: OPTIRAY 320 125ml IV PRN (15:09)
--- NOTE | 2018-09-19 15:21 | CT Scan Report ---
HEAD & NECK CTA HISTORY: stroke symptoms TECHNIQUE: Multiaxial CT images of the head were performed following the intravenous administration o f contrast to evaluate the major cerebral vessels. Multiaxial CT images of the neck were also perform ed following the intravenous administration of contrast to evaluate the major cervical vessels. Maxim um intensity projection images were also obtained. A dose lowering technique was utilized adhering to the principles of ALARA. COMPARISON: Head and Neck CTA 09/17/2018. FINDINGS: There is no mass, hematoma, midline shift, or acute infarct. Visualized intracranial internal carotid arteries, distal vertebral arteries, and basilar artery are widely patent. There is no significant s tenosis, occlusion, or aneurysm seen within the bilateral ACAs, MCAs, or movie actor. Mild/moderate calcifie d plaque within the bilateral carotid siphons. The aortic arch and proximal great vessels are widely patent. There is no significant stenosis, occ lusion, or dissection identified within the bilateral common carotid, internal carotid, or vertebral arteries. IMPRESSION: 1. No significant stenosis, occlusion, or aneurysm within the [place] of Rai. 2. No significant stenosis, occlusion, or dissection identified within the carotid or vertebral arter ies. Electronically signed by: Jean Colón M.D. 09/19/2018 3:19 PM
--- NOTE | 2018-09-19 15:21 | CT Scan Report ---
HEAD & NECK CTA HISTORY: stroke symptoms TECHNIQUE: Multiaxial CT images of the head were performed following the intravenous administration o f contrast to evaluate the major cerebral vessels. Multiaxial CT images of the neck were also perform ed following the intravenous administration of contrast to evaluate the major cervical vessels. Maxim um intensity projection images were also obtained. A dose lowering technique was utilized adhering to the principles of ALARA. COMPARISON: Head and Neck CTA 09/17/2018. FINDINGS: There is no mass, hematoma, midline shift, or acute infarct. Visualized intracranial internal carotid arteries, distal vertebral arteries, and basilar artery are widely patent. There is no significant s tenosis, occlusion, or aneurysm seen within the bilateral ACAs, MCAs, or shrub grower. Mild/moderate calcifie d plaque within the bilateral carotid siphons. The aortic arch and proximal great vessels are widely patent. There is no significant stenosis, occ lusion, or dissection identified within the bilateral common carotid, internal carotid, or vertebral arteries. IMPRESSION: 1. No significant stenosis, occlusion, or aneurysm within the [place] of Rai. 2. No significant stenosis, occlusion, or dissection identified within the carotid or vertebral arter ies. Electronically signed by: Jean Colón M.D. 09/19/2018 3:19 PM
[2018-09-19 15:27] LABS: Hematocrit (blood only) 34.2 % (37-47); Hemoglobin 10.8 g/dL (12.0-16.0); Mean Corpuscular Hgb Conc 31.6 g/dL (32-36); Mean Corpuscular Volume 85.3 fL (80-100); Mean Platelet Volume 9.5 fL (7.4-10.4); Platelet Count 288 K/uL (130-400); RDW Coefficient of Variation 14.7 % (11.5-14.5); Red Blood Count 4.01 M/uL (4.2-5.4); White Blood Count 8.14 K/uL (4.8-10.8)
[2018-09-19] MEDS: POTASSIUM CHLORIDE / WTR 10 MEQ/100 ML PLCT IV SCH ×2 (15:34→17:58)
[2018-09-19 15:38] LABS: INR 1.1 (0.9-1.1); Partial Thromboplastin Time 26.2 Seconds (21.0-31.0); Prothrombin Time 10.7 Seconds (9.0-12.0)
[2018-09-19 15:49] LABS: Albumin Level 3.3 gm/dl (3.4-5.0); BUN Creatinine Ratio 16.5 (10-20); Calcium 8.4 mg/dl (8.5-10.1); Creatinine Clr Calc Pharmacy 54.6 ml/min; Est GFR (African American) 70.2; Est GFR (Non-African American) 60.6; Magnesium 2.1 mg/dl (1.8-2.4); Potassium 3.1 mmol/L (3.5-5.1)
[2018-09-19 15:50] LABS: Bilirubin,Total 0.3 mg/dl (0.2-1); Globulin 3.5 gm/dl (2.5-4.0); Total Protein 6.8 gm/dl (6.4-8.2)
--- NOTE | 2018-09-19 16:23 | History & Physical Report ---
Date of Service September 19, 2018 History of Present Illness Primary Care Provider: Elizabeth Celina Kodyedwin This is a 73 yo F with PMHX of HTN, HLD< breast cancer, GERD, depression, anxiety, chronic back pain and hx of previous stroke about 10 yrs ago with transiet left sided numbness, who presented to the ER last night after an episode of LOC which occurred at home, ~7 PM and lasted for 5 minutes. Pts apparently slump over while sitting on her cough. This was followed by a period of confusion and inability to speak. The patient cannot recall the event and denies experiencing any particular warning signs. Currently she complains of a mild frontal headache. Denies focal weakness, vision disturbances , dysphagia or dysarthria. She initially had expressed strong desire to go home but is now agreeable for admission. CT of the head suggested an age indeterminate lacunar infarct within the left internal capsule. CT angiography of the head and neck were unremarkable. She has been modestly hypertensive during this hospitalization. Electrocardiogram reveals a sinus rhythm, 83 bpm. An echocardiogram reveals a normal ejection fraction, no PFO. Allergies Allergy/AdvReac Type Severity Reaction Status Date / Time adhesive Allergy Unknown RASH AND Verified 09/19/18 16:19 SORE No Known Drug Allergies Allergy Unknown . Verified 09/19/18 16:19 Home Medications Home Medications Medication Instructions Recorded Confirmed Type celecoxib [Celebrex] 200 mg PO UD 09/17/18 09/17/18 History cyclobenzaprine 10 mg PO BID PRN 09/17/18 09/17/18 History duloxetine [Cymbalta] 20 mg PO BID 09/17/18 09/17/18 History escitalopram oxalate [Lexapro] 10 mg PO DAILY 09/17/18 09/17/18 History fluticasone [Flonase Allergy 0 spray INTRANASAL UD 09/17/18 09/17/18 History Relief] hydrocodone-acetaminophen [[place]] 1 - 2 tab PO Q4 PRN 09/17/18 09/17/18 History lubiprostone [Amitiza] 24 mcg PO BID 09/17/18 09/17/18 History omeprazole 40 mg PO DAILY 09/17/18 09/17/18 History zolpidem [Ambien] 10 mg PO HS 09/17/18 09/17/18 History atorvastatin 40 mg PO QAM #30 tab 09/18/18 Rx clopidogrel 75 mg PO QAM #30 tab 09/18/18 Rx Past Med/Surg History Medical History Chronic back pain Depression Anxiety High cholesterol (Chronic) Hypertension (Chronic) Acid reflux (Chronic) Breast cancer Chronic back pain (Chronic) Surgical History H/O: hysterectomy History of back surgery Family History Other CVA (cerebral vascular accident) Social History Current Living Situation: Spouse Feels Safe at Home: Yes Smoking Status: Never smoker Hx Alcohol Use: No Hx Substance Use: Yes substance use type: prescription drug Beliefs That Will Affect Care: None Preferred Language: Malay Physical Exam 2 Vital Signs (Past 24 Hours): Last Vital Signs Temp 36.8 C 09/19/18 14:48 Pulse 82 09/19/18 16:15 Resp 18 09/19/18 16:15 BP 151/91 H 09/19/18 16:15 Pulse Ox 98 09/19/18 16:15
--- NOTE | 2018-09-19 16:33 | History & Physical Report ---
Date of Service September 19, 2018 Assessment & Plan (1) Stroke: (2) Stroke-like symptoms: - Hx R lacunar infarct on 09/17 likely evolving - Admit to tele - Neuro consulted - Discussed with Dr. Fitch - he recommends at least overnight stay to evaluate and make sure sx are not worsening. Pt may also be a candidate for therapy - Appreciate recs - repeat MRI ordered - CT head reviewed, CTA head and neck completed today - reviewed but do not appreciate the lacunar infarct within the right hemispheric white matter just superior lateral to the right external capsule as seen on MRI from yesterday - Allow permissive htn - Speech consult, npo until swallow eval - Continue atorvastatin 40 mg QAM, plavix 75 mg daily (was changed from aspirin therapy on 09/17) - Echocardiogram completed on 09/18 with normal EF and without PFO. - PT/OT consults (3) High cholesterol: - Continue high intensity statin therapy (4) Hypertension: - Allow permissive HTN for now in setting of CVA (5) Acid reflux: - Continue omeprazole (6) Depression: (7) Anxiety: - Cont lexapro, cymbalta and zolipem HS, (8) Chronic back pain: - Recommend stopping celebrex due to inceased risk of GI bleed and plavix use. - Continue [place] prn (9) Breast cancer: - stable History of Present Illness Primary Care Provider: Elizabeth Ramirez This is a 73 yo F with PMHX of HTN, HLD, breast cancer, GERD, depression, anxiety, chronic back pain and hx of previous stroke about 10 yrs ago with transient left sided numbness, who presented to the ER on 09/17/18 after an episode of LOC which occurred at home, ~7 PM and lasted for 5 minutes. Pts apparently slump over while sitting on her cough. This was followed by a period of confusion and inability to speak. The patient cannot recall the event and denies experiencing any particular warning signs. Denies focal weakness, vision disturbances, dysphagia or dysarthria. The patient was discharged yesterday after workup was completed by Neurology. CT of the head on 09/18/18 suggested an age indeterminate lacunar infarct within the left internal capsule. CT angiography of the head and neck were unremarkable. She has been modestly hypertensive during this hospitalization but was acceptable in the setting of permissive hypertension. An echocardiogram on 09/18/18 revealed a normal ejection fraction, no PFO. The patient represents to the ER today with new onset of worsening confusion and slurred speech. The patient ate lunch around 2 pm without difficulty and had gotten up to use the bathroom sometime after. She ran into the sliding door , but proceeded to use the restroom without difficulty on her own. Denies injury or LOC. After this her noted her speech wasn't making quite as much sense and new slurring. At the time of my evaluation, her state speech has resolved back to normal, however she still isn't able to recall the events and has difficulty word finding. Her main complaint is that of a frontal headache. She is unhappy to have to stay in the hospital and is demanding her own room. at bedside also in agreement with the need for their own room. Allergies Allergy/AdvReac Type Severity Reaction Status Date / Time adhesive Allergy Unknown RASH AND Verified 09/19/18 16:19 SORE No Known Drug Allergies Allergy Unknown . Verified 09/19/18 16:19 Home Medications Home Medications Medication Instructions Recorded Confirmed Type celecoxib [Celebrex] 200 mg PO UD 09/17/18 09/19/18 History cyclobenzaprine 10 mg PO BID PRN 09/17/18 09/19/18 History duloxetine [Cymbalta] 20 mg PO BID 09/17/18 09/19/18 History escitalopram oxalate [Lexapro] 10 mg PO DAILY 09/17/18 09/19/18 History fluticasone [Flonase Allergy 0 spray INTRANASAL UD 09/17/18 09/19/18 History Relief] hydrocodone-acetaminophen [[place]] 1 - 2 tab PO Q4 PRN 09/17/18 09/19/18 History lubiprostone [Amitiza] 24 mcg PO BID 09/17/18 09/19/18 History omeprazole 40 mg PO DAILY 09/17/18 09/19/18 History zolpidem [Ambien] 10 mg PO HS 09/17/18 09/19/18 History atorvastatin 40 mg PO QAM #30 tab 09/18/18 09/19/18 Rx clopidogrel 75 mg PO QAM #30 tab 09/18/18 09/19/18 Rx Past Med/Surg History Medical History Aphasia (Acute) Stroke Stroke-like symptoms (Acute) Chronic back pain Depression Anxiety High cholesterol (Chronic) Hypertension (Chronic) Acid reflux (Chronic) Breast cancer Chronic back pain (Chronic) Surgical History H/O: hysterectomy History of back surgery Family History Other CVA (cerebral vascular accident) Social History Current Living Situation: Spouse Other Information That Helps Us Care for You: No Feels Safe at Home: Yes Safety Concerns: Feels Safe At This Time Smoking Status: Never smoker Hx Alcohol Use: No Hx Substance Use: No Beliefs That Will Affect Care: None Preferred Language: Mohawk Communication Ability: Effective Sign Fabricator Required: No Review of Systems Constitutional: no fever, no chills, no sweats and no fatigue Eyes: no diplopia and no worsening vision Ear, Nose, Mouth, Throat: no dizziness, no nasal discharge, no facial pain and no sore throat Respiratory: no cough, no dyspnea and no wheezing Cardiovascular: no chest pain, no palpitations, no lightheadedness and no syncope Gastrointestinal: no nausea, no vomiting, no constipation and no diarrhea/loose stools no diarrhea Genitourinary (Female): no dysuria, no urinary frequency and no urinary incontinence Musculoskeletal: no back pain, no joint pain, no swelling and no muscle weakness Integumentary: no rash, no lesions and no wounds Neurologic: as per Subjective / HPI, + unsteadiness, + falls, + numbness, + lack of coordination, + headache(s) (frontal) and + abnormal speech; no gait abnormality, no dizziness and no syncope Psychiatric: no depression and no anxiety Endocrine: no fatigue Physical Exam 2 Vital Signs (Past 24 Hours): Last Vital Signs Temp 36.8 C 09/19/18 14:48 Pulse 82 09/19/18 16:15 Resp 18 09/19/18 16:15 BP 151/91 H 09/19/18 16:15 Pulse Ox 98 09/19/18 16:15 Physical Exam: General: awake, alert, no apparent distress Head: Normocephalic, atraumatic ENT: PERRL, EOMI, no pharyngeal exudate, mucous membranes moist Chest: Clear to auscultation, on room air, no adventitious breath sounds Cardiac: Regular rate and rhythm, no murmur, no JVD, normal peripheral pulses, good capillary refill Abdominal: NABS x 4 quadrants, soft, nontender to palpation, no rebound, guarding or tenderness Extremities: Normal inspection, no peripheral edema or erythema, calfs nontender to palpation Psych: Normal mood and affect Neuro: AAO x 3, +difficulty word finding at times although speech is clear, makes some nonsensical comments and has difficulty with commands, strength in RUE diminished compared to left, +difficulty with finger to nose touch with the right hand, + slight left pronator drift, able to do rapid alternating movements , and related 5/5, no motor deficits BLE. Results & Data Diagnostic Findings CT SCAN OF THE BRAIN WITHOUT IV CONTRAST CLINICAL HISTORY: Strokelike symptoms. COMPARISON STUDY: CT of the brain dated 09/17/2018. MRI of the brain dated 2018. TECHNIQUE: Unenhanced axial CT scan of the brain is performed from the vertex to the skull base. A dose lowering technique was utilized adhering to the principles of ALARA. CT DOSE: 729.78 mGycm FINDINGS: Brain parenchyma: There are age-related involutional changes noting moderate confluent subcortical and periventricular microangiopathic change. There is no hemorrhage, mass effect, or evidence of acute territorial ischemia by CT criteria. There is a chronic lacunar infarct identified in the left basal ganglia. A small chronic lacunar infarct is also seen in the left caudate head. Matthews-white matter differentiation is preserved. No extra-axial fluid collection is seen. Ventricles, sulci, cisterns: Prominent secondary to involutional change. Intracranial vasculature: There is atherosclerotic calcification of the cavernous carotid and vertebral arteries. Calvarium: Unremarkable. Sinuses and mastoids: The visualized paranasal sinuses are clear. The mastoid air cells are well pneumatized. Orbits: The bony orbits are grossly intact. There is evidence of bilateral ocular lens surgery. IMPRESSION: 1. Senescent changes as above with no hemorrhage, mass effect, or evidence of acute territorial ischemia by CT criteria. 2. The small lacunar infarct seen on the 09/18/2018 MRI was not appreciated by CT. HEAD & NECK CTA HISTORY: stroke symptoms TECHNIQUE: Multiaxial CT images of the head were performed following the intravenous administration of contrast to evaluate the major cerebral vessels. Multiaxial CT images of the neck were also performed following the intravenous administration of contrast to evaluate the major cervical vessels. Maximum intensity projection images were also obtained. A dose lowering technique was utilized adhering to the principles of ALARA. COMPARISON: Head and Neck CTA 09/17/2018. FINDINGS: There is no mass, hematoma, midline shift, or acute infarct. Visualized intracranial internal carotid arteries, distal vertebral arteries, and basilar artery are widely patent. There is no significant stenosis, occlusion, or aneurysm seen within the bilateral ACAs, MCAs, or financial service rep. Mild/moderate calcified plaque within the bilateral carotid siphons. The aortic arch and proximal great vessels are widely patent. There is no significant stenosis, occlusion, or dissection identified within the bilateral common carotid, internal carotid, or vertebral arteries. IMPRESSION: 1. No significant stenosis, occlusion, or aneurys XR chest 1V portable CLINICAL HISTORY: Acute stroke COMPARISON STUDY: 11/20/2016 FINDINGS: Surgical clips project over the right breast and axillary region. The heart is mildly enlarged. There is no lobar consolidation. Increased right basilar markings are likely atelectatic. Gas beneath the right hemidiaphragm was present on the prior study and likely represents colonic interposition. There is no failure. There are no specific and pleural effusions.[ IMPRESSION: 1. Right basilar opacities statistically atelectatic. A pneumonia could appear similar but is felt to be statistically less likely 2. Mild cardiomegaly. No evidence of failure. Code Status & VTE Plan Code Status DNR Supervising Physician Co-Signing Physician Notes Pt seen/examined in conjunction with SUAD Tompkins. Orders and plan of admission formuated with SUAD. 73 yo F HX HTN, HLD, breast CA, GERD, depression, anxiety, chronic back pain, CVA 2007 - presented to the ER on 09/17/18 after an episode of LOC - this was followed by a period of confusion and aphasia. A CVA was confirmed with a lesion adjacent to the R internal capsule. She had recurrence of aphasia and possibly acute on chronic L sided weakness which had largely resolved on arrival to the ER. OE AAO x 3 - clear s[eech - irritable as she does not want to be in the hospital S1,2 R CTAB NT, ND, BS+ No CCE Neuro: speech is clear - AAO x 3 - weakness is limits to the LUE P: We discussed the case with neurology. They have not advised on a change in management. A repeat MRI is ordered - we would consider adding ASA to her Plavix for a period. HTN willl not be treated _ (1) Hypertension Hypertension type: essential hypertension Qualified Code(s): I10 - Essential (primary) hypertension
--- NOTE | 2018-09-19 16:34 | XRay Report ---
XR chest 1V portable CLINICAL HISTORY: Acute stroke COMPARISON STUDY: 11/20/2016 FINDINGS: Surgical clips project over the right breast and axillary region. The heart is mildly enlar ged. There is no lobar consolidation. Increased right basilar markings are likely atelectatic. Gas be neath the right hemidiaphragm was present on the prior study and likely represents colonic interposit ion. There is no failure. There are no specific and pleural effusions.[ IMPRESSION: 1. Right basilar opacities statistically atelectatic. A pneumonia could appear similar but is felt to be statistically less likely 2. Mild cardiomegaly. No evidence of failure. Electronically signed by: Franc Mims M.D. 09/19/2018 4:33 PM
[2018-09-19] MEDS ORDERED: CYCLOBENZAPRINE HCL 10 MG TAB PO PRN (18:06)
[2018-09-19] MEDS ORDERED: HYDROCODONE/ACETAMOPHEN 5/325MG TAB PO PRN (18:06)
[2018-09-19] MEDS ORDERED: PHARMACIST DISCHARGE MED REC CONSULT PRN (18:06)
[2018-09-19 19:00] LABS: Basophils # (auto) 0.03 K/uL (0-0.2); Basophils % (auto) 0.3 %; Eosinophils # (auto) 0.05 K/uL (0-0.5); Eosinophils % (auto) 0.5 %; Hematocrit (blood only) 37.5 % (37-47); Hemoglobin 11.9 g/dL (12.0-16.0); Immature Granulocytes # (auto) 0.02 K/uL (0.00-0.02); Immature Granulocytes % (auto) 0.2 %; Lymphocytes # (auto) 1.57 K/uL (1.2-3.4); Lymphocytes % (auto) 16.4 %; Mean Platelet Volume 9.8 fL (7.4-10.4); Monocytes # (auto) 0.62 K/uL (0.11-0.59); Monocytes % (auto) 6.5 %; Neutrophils % (auto) 76.1 %; Platelet Count 306 K/uL (130-400); RDW Coefficient of Variation 14.8 % (11.5-14.5); Red Blood Count 4.41 M/uL (4.2-5.4); White Blood Count 9.59 K/uL (4.8-10.8)
[2018-09-19 19:02] LABS: Mean Corpuscular Hgb Conc 31.7 g/dL (32-36)
[2018-09-19 19:16] LABS: BUN Creatinine Ratio 18.8 (10-20); Calcium 8.9 mg/dl (8.5-10.1); Creatinine Clr Calc Pharmacy 60.4 ml/min; Est GFR (African American) 79.3; Est GFR (Non-African American) 68.5; Potassium 3.5 mmol/L (3.5-5.1)
[2018-09-19] MEDS ORDERED: GADOBUTROL 65ML VIAL IV PRN (19:16)
--- NOTE | 2018-09-19 19:37 | Magnetic Resonance Report ---
MRI OF THE BRAIN WITHOUT AND WITH IV CONTRAST CLINICAL HISTORY: Recurrent stroke like symptoms COMPARISON STUDY: 09/18/2018 TECHNIQUE: MRI of the brain was performed from the vertex to the skull base utilizing various T1 and T2 weighted sequences. Following the IV administration of 7 mL of Gadavist contrast, additional enhan thierry images were obtained. FINDINGS: Sagittal T1, axial diffusion, proton density and T2 weighted axial, coronal FLAIR, and pre and post a xial T1-weighted images were acquired. These were supplemented with post gadolinium coronal T1 weight ed images. No intra or extra-axial mass lesions are visualized. There is a 7 mm focus of restricted water diffusion just superior lateral to the right external capsu le. The findings are consistent with a subacute infarct. This remains unchanged in appearance when co mpared the preceding examination. There is mild particular dilatation similar to the prior study and likely secondary to volume loss Proton density T2-weighted and FLAIR images reveal persistent confluent foci of increased T2 and FLAI R signal within the periventricular white matter likely a small vessel basis. Old lacunar infarcts in the left basal ganglia and cerebellum remain similar to the prior study. There are no abnormal flow voids. There is no evidence of pathologic enhancement. IMPRESSION: 1. No change from the preceding study 2. 7 mm focus of restricted water diffusion within the right hemispheric white matter just superior l ateral to the right external capsule. The findings are indicative of an acute/subacute infarct 3. Stable white matter disease and areas of prior lacunar infarction. Stable mild particular dilatati on likely secondary to volume loss. Electronically signed by: Franc Mims M.D. 09/19/2018 7:36 PM
[2018-09-19] MEDS ORDERED: ACETAMINOPHEN 65 ML IV PRN (21:00)
[2018-09-19] MEDS: DULOXETINE HCL 20 MG CAP PO SCH (21:06)
[2018-09-19] MEDS: LUBIPROSTONE 8 MCG CAP PO SCH (21:06)
[2018-09-19] MEDS: ZOLPIDEM TARTRATE 10 MG TAB PO SCH (21:06)
--- NOTE | 2018-09-20 00:44 | Emergency Department Note ---
Entered by Arun Chowdhury acting as a scribe for Kalin Proctor MD History of Present Illness General Chief complaint: Stroke/CVA Symptoms Stated complaint: STROKE LIKE SYMPTOMS Time Seen by Provider: 09/19/18 14:53 Source: family () and old records reviewed Limitations: no limitations History of Present Illness Onset (ago): hour(s) 1 Location: head Severity: similar to prior episodes Pain Consistency: + constant Associated symptoms: + confusion, + weakness and + other (slurred speech) The patient is a 73 year old female who presents to the Emergency Room with complaints of stroke-like symptoms beginning an hour ago. The patient was admitted 2 days ago with stroke-like symptoms when she was diagnose with an acute stroke in the right hemispherical white matter, just superior and lateral to the right external capsule. The patient was discharged yesterday with TIA symptoms. The patient's states the patient had a little slurred speech this morning but notes it was no different than yesterday. He notes the patient was supposed to get blood work today. He states the patient bumped into a wall on her way back from the bathroom. He states the patient got dressed and looked out of it after. He notes the patient could not verbally respond to him. He states her symptoms started at 2 PM. He notes the patient's left eye was droopy before coming to the ED. He states the patient was doing fine before 2 PM. The states he thinks the patient knew what was happening when bringing her in the hospital. He states the patient did not remember anything about her admission in the hospital 2 days ago. He notes the patient has a low potassium. Home Medications Home Medications Medication Instructions Recorded Confirmed Type celecoxib [Celebrex] 200 mg PO UD 09/17/18 09/19/18 History cyclobenzaprine 10 mg PO BID PRN 09/17/18 09/19/18 History duloxetine [Cymbalta] 20 mg PO BID 09/17/18 09/19/18 History escitalopram oxalate [Lexapro] 10 mg PO DAILY 09/17/18 09/19/18 History fluticasone [Flonase Allergy 0 spray INTRANASAL UD 09/17/18 09/19/18 History Relief] hydrocodone-acetaminophen [[place]] 1 - 2 tab PO Q4 PRN 09/17/18 09/19/18 History lubiprostone [Amitiza] 24 mcg PO BID 09/17/18 09/19/18 History omeprazole 40 mg PO DAILY 09/17/18 09/19/18 History zolpidem [Ambien] 10 mg PO HS 09/17/18 09/19/18 History atorvastatin 40 mg PO QAM #30 tab 09/18/18 09/19/18 Rx clopidogrel 75 mg PO QAM #30 tab 09/18/18 09/19/18 Rx Allergies Allergy/AdvReac Type Severity Reaction Status Date / Time adhesive Allergy Unknown RASH AND Verified 09/19/18 16:19 SORE No Known Drug Allergies Allergy Unknown . Verified 09/19/18 16:19 Past Med/Surg History Medical History Aphasia (Acute) Stroke Stroke-like symptoms (Acute) Chronic back pain Depression Anxiety High cholesterol (Chronic) Hypertension (Chronic) Acid reflux (Chronic) Breast cancer Chronic back pain (Chronic) Surgical History H/O: hysterectomy History of back surgery Family History Other CVA (cerebral vascular accident) Social History marital status: Current Living Situation: Spouse Other Information That Helps Us Care for You: No Feels Safe at Home: Yes Safety Concerns: Feels Safe At This Time Smoking Status: Never smoker Hx Alcohol Use: No Hx Substance Use: No Beliefs That Will Affect Care: None Communication Ability: Effective Review of Systems See HPI for pertinent positives & negatives. and A total of 10 systems reviewed and were otherwise negative Physical Exam Vital Signs Vital Signs - 24 hr 09/19/18 22:56 09/20/18 00:21 09/20/18 04:00 Temperature 37.2 C 37.1 C Temperature Source Oral Oral Pulse Rate 88 Pulse Rate [Left Brachial] Pulse Rate [Left Finger] 81 74 Respiratory Rate 16 18 Respiratory Effort / Characteristics Non-Labored Respiratory Depth Normal Blood Pressure [Left Arm] Blood Pressure [Right Arm] 148/71 H 117/64 Blood Pressure Mean [Left Arm] Blood Pressure Mean [Right Arm] 96 81 Blood Pressure Position [Left Arm] Blood Pressure Position [Right Arm] Lying Lying Pulse Oximetry 93 94 Oxygen Delivery Method Room Air Room Air 09/20/18 07:00 09/20/18 08:00 09/20/18 10:50 Temperature 37.2 C 37.2 C Temperature Source Oral Oral Pulse Rate 75 Pulse Rate [Left Brachial] Pulse Rate [Left Finger] 82 88 Respiratory Rate 16 16 Respiratory Effort / Characteristics Respiratory Depth Blood Pressure [Left Arm] 145/81 H 125/77 Blood Pressure [Right Arm] Blood Pressure Mean [Left Arm] 102 93 Blood Pressure Mean [Right Arm] Blood Pressure Position [Left Arm] Lying Lying Blood Pressure Position [Right Arm] Pulse Oximetry 93 95 Oxygen Delivery Method Room Air 09/20/18 15:55 09/20/18 19:39 Temperature 37.2 C 37.0 C Temperature Source Oral Oral Pulse Rate Pulse Rate [Left Brachial] 94 H Pulse Rate [Left Finger] 82 Respiratory Rate 18 16 Respiratory Effort / Characteristics Respiratory Depth Blood Pressure [Left Arm] 134/74 121/74 Blood Pressure [Right Arm] Blood Pressure Mean [Left Arm] 94 89 Blood Pressure Mean [Right Arm] Blood Pressure Position [Left Arm] Sitting Lying Blood Pressure Position [Right Arm] Pulse Oximetry 92 97 Oxygen Delivery Method Room Air Room Air GENERAL: Awake, alert, in no distress HENT: Normocephalic, atraumatic. Oropharynx with dry mucous membranes and otherwise unremarkable. EYES: Normal conjunctiva. Sclera non-icteric. EOMI. No nystamgus. PEARRL. NECK: Supple. No nuchal rigidity. FROM. No JVD. RESPIRATORY: Clear to auscultation. CARDIAC: Regular rate, normal rhythm. Extremities warm and well perfused. Pulses equal. ABDOMEN: Soft, non-distended. No tenderness to palpation. No rebound or guarding. No masses. RECTAL: Deferred. MUSCULOSKELETAL: Chest examination reveals no tenderness. The back is symmetrical on inspection without obvious abnormality. There is no CVA tenderness to palpation. No joint edema. LOWER EXTREMITIES: Calves are equal size bilaterally and non-tender. No edema. No discoloration. NEURO: Severe receptive and expressive aphasia. Mild flattening of labial fold on the right. 5/5 strength and SILT x4 extremities. SKIN: No rash or jaundice noted. Course 1455: Past medical records reviewed. The patient was evaluated in room B1, and a complete history and physical examination were performed. 1555: I reviewed the patient's case with Dr. Cobian, stroke neurologist. She states she does not think the patient is a TPA candidate because the patient has improving symptoms. She recommends admiting the patient and getting a repeat MRI and EEG, in particular because she does not feel the severity of the patient's symptoms match the small focus identified on her recent MRI. 1605: I reviewed the patient's case with Dr. Chanel - [facility]. He will evaluate the patient for further management. Administered Medications Clopidogrel Bisulfate (Plavix) 75 mg PO QAM [facility] Stop: 10/20/18 08:59 Last Admin: 09/20/18 10:01 Dose: 75 mg Duloxetine HCl (Cymbalta) 20 mg PO BID [facility] Stop: 10/19/18 20:59 Last Admin: 09/20/18 21:16 Dose: 20 mg Admin: 09/20/18 10:02 Dose: 20 mg Admin: 09/19/18 21:06 Dose: Not Given Escitalopram Oxalate (Lexapro) 10 mg PO DAILY [facility] Stop: 10/20/18 08:59 Last Admin: 09/20/18 10:01 Dose: 10 mg Gadobutrol (Gadavist 65ml) 7 ml IV ONCE PRN PRN Reason: Interaction Checking Stop: 09/23/18 19:15 Last Admin: 09/19/18 19:17 Dose: 7 ml Acetaminophen (Ofirmev) 65 mls @ 200 mls/hr IV Q8H PRN PRN Reason: pain Stop: 10/19/18 20:59 Last Infusion: 09/19/18 22:40 Dose: 0 mls/hr Admin: 09/19/18 22:20 Dose: 200 mls/hr Ioversol (Optiray 320 125ml) 120 ml IV ONCE PRN PRN Reason: Interaction Checking Stop: 09/23/18 15:08 Last Admin: 09/19/18 15:10 Dose: 120 ml Lubiprostone (Amitiza) 24 mcg PO BID [facility] Stop: 10/19/18 20:59 Last Admin: 09/20/18 21:17 Dose: 24 mcg Admin: 09/20/18 10:01 Dose: 24 mcg Admin: 09/19/18 21:06 Dose: Not Given Pantoprazole Sodium (Protonix) 40 mg PO DAILY [facility] Stop: 10/20/18 08:59 Last Admin: 09/20/18 10:00 Dose: 40 mg Zolpidem Tartrate (Ambien) 10 mg PO HS [facility] Stop: 10/19/18 20:59 Last Admin: 09/20/18 21:17 Dose: 10 mg Admin: 09/19/18 21:06 Dose: Not Given Discontinued Medications Atorvastatin Calcium (Lipitor) 40 mg PO QAM [facility] Stop: 10/20/18 08:59 Last Admin: 09/20/18 10:02 Dose: 40 mg Sodium Chloride (Nss 1000ml) 1,000 mls @ 999 mls/hr IV .Q1H1M ONE Stop: 09/19/18 16:00 Last Infusion: 09/19/18 16:35 Dose: 0 mls/hr Admin: 09/19/18 15:34 Dose: 999 mls/hr Potassium Chloride (K Leroy / Wtr) 10 meq in 100 mls @ 100 mls/hr IV Q1H [facility] Stop: 09/19/18 17:14 Last Admin: 09/19/18 17:58 Dose: Not Given Infusion: 09/19/18 16:35 Dose: 0 mls/hr Admin: 09/19/18 15:34 Dose: 100 mls/hr Potassium Chloride (Klor-Con M20) 40 meq PO NOW STA Stop: 09/20/18 08:55 Last Admin: 09/20/18 10:02 Dose: 40 meq Medical Decision Making Differential Diagnosis Differential includes acute coronary syndrome, myocardial infarction, CVA, TIA , anemia, stroke, infection, pneumonia, UTI, pyelonephritis, poor nutrition, dehydration, electrolyte disturbance,hypoglycemia. Medical Records Attestation: I reviewed the patient's medical records. Home Medications Current Medication List: was personally reviewed by me Laboratory Data Attestation: I reviewed the patient's lab results. Result diagrams: 09/20/18 07:23 09/20/18 07:23 Lab Results 09/19/18 09/19/18 09/19/18 Range/Units 15:16 15:16 15:16 WBC 8.14 (4.8-10.8) K/uL RBC 4.01 L (4.2-5.4) M/uL Hgb 10.8 L (12.0-16.0) g/dL Hct 34.2 L (37-47) % MCV 85.3 (80-100) fL MCH 26.9 (25-34) pg MCHC 31.6 L (32-36) g/dL RDW Std Deviation 46.0 (36.4-46.3) fL RDW Coeff of [place]ouard 14.7 H (11.5-14.5) % Plt Count 288 (130-400) K/uL MPV 9.5 (7.4-10.4) fL Immature Gran % (Auto) % Neut % (Auto) % Lymph % (Auto) % Tift % (Auto) % Eos % (Auto) % Baso % (Auto) % Immature Gran # (Auto) (0.00-0.02) K/uL Neut # (Auto) (1.4-6.5) K/uL Lymph # (Auto) (1.2-3.4) K/uL Tift # (Auto) (0.11-0.59) K/uL Eos # (Auto) (0-0.5) K/uL Baso # (Auto) (0-0.2) K/uL PT 10.7 (9.0-12.0) Seconds INR 1.1 (0.9-1.1) APTT 26.2 (21.0-31.0) Seconds PTT Ratio 1.0 Sodium 138 (136-145) mmol/L Potassium 3.1 L (3.5-5.1) mmol/L Chloride 102 (98-107) mmol/L Carbon Dioxide 30 (21-32) mmol/L Anion Gap 6.0 (3-11) BUN 16 D (7-18) mg/dl Creatinine 0.94 D (0.6-1.2) mg/dl Est Cr Clr Drug Dosing 54.6 ml/min Est GFR ( Amer) 70.2 Est GFR (Non-Af Amer) 60.6 BUN/Creatinine Ratio 16.5 (10-20) Glucose 99 (70-99) mg/dl Estimat Average Glucose mg/dl Hemoglobin A1c (4.5-5.6) % Calcium 8.4 L (8.5-10.1) mg/dl Magnesium 2.1 (1.8-2.4) mg/dl Total Bilirubin 0.3 (0.2-1) mg/dl Direct Bilirubin (0-0.2) mg/dl AST 21 (15-37) U/L ALT 15 (12-78) U/L Alkaline Phosphatase 78 (45-117) U/L Total Protein 6.8 (6.4-8.2) gm/dl Albumin 3.3 L (3.4-5.0) gm/dl Globulin 3.5 (2.5-4.0) gm/dl Albumin/Globulin Ratio 1.0 (0.9-2) Triglycerides (0-150) mg/dl Cholesterol (0-200) mg/dl LDL Cholesterol, Calc mg/dl VLDL Cholesterol, Calc mg/dl HDL Cholesterol mg/dl Cholesterol/HDL Ratio 09/19/18 09/19/18 09/19/18 Range/Units 18:36 18:36 18:36 WBC 9.59 (4.8-10.8) K/uL RBC 4.41 (4.2-5.4) M/uL Hgb 11.9 L (12.0-16.0) g/dL Hct 37.5 (37-47) % MCV 85.0 (80-100) fL MCH 27.0 (25-34) pg MCHC 31.7 L (32-36) g/dL RDW Std Deviation 46.0 (36.4-46.3) fL RDW Coeff of Edouard 14.8 H (11.5-14.5) % Plt Count 306 (130-400) K/uL MPV 9.8 (7.4-10.4) fL Immature Gran % (Auto) 0.2 % Neut % (Auto) 76.1 % Lymph % (Auto) 16.4 % Tift % (Auto) 6.5 % Eos % (Auto) 0.5 % Baso % (Auto) 0.3 % Immature Gran # (Auto) 0.02 (0.00-0.02) K/uL Neut # (Auto) 7.30 H (1.4-6.5) K/uL Lymph # (Auto) 1.57 (1.2-3.4) K/uL Tift # (Auto) 0.62 H (0.11-0.59) K/uL Eos # (Auto) 0.05 (0-0.5) K/uL Baso # (Auto) 0.03 (0-0.2) K/uL PT (9.0-12.0) Seconds INR (0.9-1.1) APTT (21.0-31.0) Seconds PTT Ratio Sodium 138 (136-145) mmol/L Potassium 3.5 (3.5-5.1) mmol/L Chloride 104 (98-107) mmol/L Carbon Dioxide 29 (21-32) mmol/L Anion Gap 6.0 (3-11) BUN 16 (7-18) mg/dl Creatinine 0.85 (0.6-1.2) mg/dl Est Cr Clr Drug Dosing 60.4 ml/min Est GFR ( Amer) 79.3 Est GFR (Non-Af Amer) 68.5 BUN/Creatinine Ratio 18.8 (10-20) Glucose 97 (70-99) mg/dl Estimat Average Glucose 126 mg/dl Hemoglobin A1c 6.0 H (4.5-5.6) % Calcium 8.9 (8.5-10.1) mg/dl Magnesium (1.8-2.4) mg/dl Total Bilirubin (0.2-1) mg/dl Direct Bilirubin (0-0.2) mg/dl AST (15-37) U/L ALT (12-78) U/L Alkaline Phosphatase (45-117) U/L Total Protein (6.4-8.2) gm/dl Albumin (3.4-5.0) gm/dl Globulin (2.5-4.0) gm/dl Albumin/Globulin Ratio (0.9-2) Triglycerides (0-150) mg/dl Cholesterol (0-200) mg/dl LDL Cholesterol, Calc mg/dl VLDL Cholesterol, Calc mg/dl HDL Cholesterol mg/dl Cholesterol/HDL Ratio 09/20/18 09/20/18 Range/Units 07:23 07:23 WBC 5.92 (4.8-10.8) K/uL RBC 3.89 L (4.2-5.4) M/uL Hgb 10.3 L (12.0-16.0) g/dL Hct 32.6 L (37-47) % MCV 83.8 (80-100) fL MCH 26.5 (25-34) pg MCHC 31.6 L (32-36) g/dL RDW Std Deviation 44.9 (36.4-46.3) fL RDW Coeff of Edouard 14.6 H (11.5-14.5) % Plt Count 272 (130-400) K/uL MPV 9.7 (7.4-10.4) fL Immature Gran % (Auto) 0.5 % Neut % (Auto) 54.3 % Lymph % (Auto) 33.4 % Tift % (Auto) 9.3 % Eos % (Auto) 2.0 % Baso % (Auto) 0.5 % Immature Gran # (Auto) 0.03 H (0.00-0.02) K/uL Neut # (Auto) 3.21 (1.4-6.5) K/uL Lymph # (Auto) 1.98 (1.2-3.4) K/uL Tift # (Auto) 0.55 (0.11-0.59) K/uL Eos # (Auto) 0.12 (0-0.5) K/uL Baso # (Auto) 0.03 (0-0.2) K/uL PT (9.0-12.0) Seconds INR (0.9-1.1) APTT (21.0-31.0) Seconds PTT Ratio Sodium 142 (136-145) mmol/L Potassium 3.1 L (3.5-5.1) mmol/L Chloride 108 H (98-107) mmol/L Carbon Dioxide 27 (21-32) mmol/L Anion Gap 7.0 (3-11) BUN 12 (7-18) mg/dl Creatinine 0.63 (0.6-1.2) mg/dl Est Cr Clr Drug Dosing 81.4 ml/min Est GFR ( Amer) 103.9 Est GFR (Non-Af Amer) 89.6 BUN/Creatinine Ratio 19.4 (10-20) Glucose 91 (70-99) mg/dl Estimat Average Glucose mg/dl Hemoglobin A1c (4.5-5.6) % Calcium 8.3 L (8.5-10.1) mg/dl Magnesium (1.8-2.4) mg/dl Total Bilirubin 0.5 (0.2-1) mg/dl Direct Bilirubin < 0.1 (0-0.2) mg/dl AST 20 (15-37) U/L ALT 15 (12-78) U/L Alkaline Phosphatase 76 (45-117) U/L Total Protein 6.5 (6.4-8.2) gm/dl Albumin 3.1 L (3.4-5.0) gm/dl Globulin (2.5-4.0) gm/dl Albumin/Globulin Ratio (0.9-2) Triglycerides 117 (0-150) mg/dl Cholesterol 204 H (0-200) mg/dl LDL Cholesterol, Calc 144 mg/dl VLDL Cholesterol, Calc 23 mg/dl HDL Cholesterol 37 mg/dl Cholesterol/HDL Ratio 6 Imaging Data Radiologist's Impression: Radiology results as stated below per my review and the radiologist's interpretation: CT SCAN OF THE BRAIN WITHOUT IV CONTRAST CLINICAL HISTORY: Strokelike symptoms. COMPARISON STUDY: CT of the brain dated 09/17/2018. MRI of the brain dated 2018. TECHNIQUE: Unenhanced axial CT scan of the brain is performed from the vertex to the skull base. A dose lowering technique was utilized adhering to the principles of ALARA. CT DOSE: 729.78 mGycm FINDINGS: Brain parenchyma: There are age-related involutional changes noting moderate confluent subcortical and periventricular microangiopathic change. There is no hemorrhage, mass effect, or evidence of acute territorial ischemia by CT criteria. There is a chronic lacunar infarct identified in the left basal ganglia. A small chronic lacunar infarct is also seen in the left caudate head. Matthews-white matter differentiation is preserved. No extra-axial fluid collection is seen. Ventricles, sulci, cisterns: Prominent secondary to involutional change. Intracranial vasculature: There is atherosclerotic calcification of the cavernous carotid and vertebral arteries. Calvarium: Unremarkable. Sinuses and mastoids: The visualized paranasal sinuses are clear. The mastoid air cells are well pneumatized. Orbits: The bony orbits are grossly intact. There is evidence of bilateral ocular lens surgery. IMPRESSION: 1. Senescent changes as above with no hemorrhage, mass effect, or evidence of acute territorial ischemia by CT criteria. 2. The small lacunar infarct seen on the 09/18/2018 MRI was not appreciated by CT. Electronically signed by: Miguel Hernandez M.D. 09/19/2018 3:00 PM HEAD & NECK CTA HISTORY: stroke symptoms TECHNIQUE: Multiaxial CT images of the head were performed following the intravenous administration of contrast to evaluate the major cerebral vessels. Multiaxial CT images of the neck were also performed following the intravenous administration of contrast to evaluate the major cervical vessels. Maximum intensity projection images were also obtained. A dose lowering technique was utilized adhering to the principles of ALARA. COMPARISON: Head and Neck CTA 09/17/2018. FINDINGS: There is no mass, hematoma, midline shift, or acute infarct. Visualized intracranial internal carotid arteries, distal vertebral arteries, and basilar artery are widely patent. There is no significant stenosis, occlusion, or aneurysm seen within the bilateral ACAs, MCAs, or cash applications associate. Mild/moderate calcified plaque within the bilateral carotid siphons. The aortic arch and proximal great vessels are widely patent. There is no significant stenosis, occlusion, or dissection identified within the bilateral common carotid, internal carotid, or vertebral arteries. IMPRESSION: 1. No significant stenosis, occlusion, or aneurysm within the [place] of [place]. 2. No significant stenosis, occlusion, or dissection identified within the carotid or vertebral arteries. Electronically signed by: Jean Colón M.D. 09/19/2018 3:19 PM XR chest 1V portable CLINICAL HISTORY: Acute stroke COMPARISON STUDY: 11/20/2016 FINDINGS: Surgical clips project over the right breast and axillary region. The heart is mildly enlarged. There is no lobar consolidation. Increased right basilar markings are likely atelectatic. Gas beneath the right hemidiaphragm was present on the prior study and likely represents colonic interposition. There is no failure. There are no specific and pleural effusions.[ IMPRESSION: 1. Right basilar opacities statistically atelectatic. A pneumonia could appear similar but is felt to be statistically less likely 2. Mild cardiomegaly. No evidence of failure. Electronically signed by: Franc Mims M.D. 09/19/2018 4:33 PM ECG Data Attestation: I personally reviewed and interpreted this ECG as follows: Indication: other (slurred speech) Rate (beats per minute): 86 Rhythm: sinus rhythm Findings: no acute ischemic change and no ectopy Blood Pressure Blood Pressure Findings: Elevated blood pressure Blood Pressure Disposition: further management by hospitalist HAKEEM Alexandra The patient is a pleasant 73-year-old woman with a past medical history of hypertension, hyperlipidemia with recent admission for acute stroke 2 days ago discharged yesterday presents emergency department with acute worsening of her aphasia per hpi. On arrival the patient is alert and in no acute distress, afebrile stable vital signs. However, patient expresses severe expressive and receptive aphasia often responding with inappropriate words and frequently unable to follow simple commands such as finger to nose. Stroke alert activated from triage and patient was sent directly to CT and CTA were performed. CT head negative for bleed or infarct. CTA negative for large vessel occlusion. Tele-stroke with Dr. Cobian at [facility] completed and given the patient's improvement in symptoms did not feel was candidate for TPA. Additionally, she does not feel the patient's severity and character and symptoms correlates to her recent right-sided ischemic stroke. Thus, recommends admission for observation, repeat MRI and EEG with continuation of patient's Plavix. Case was discussed with Dr. Chanel, [facility] hospitalist who will evaluate the patient for admission. Impression & Plan Aphasia Discharge Plan Visit Data *Final* Discharge Date/Time: 09/19/18 17:45 Chief Complaint: Stroke/CVA Symptoms Stated Complaint: STROKE LIKE SYMPTOMS ED Provider: Kalin Proctor Discharge Problem: Aphasia Patient Disposition: Admitted As Inpatient Discharge Instructions Interventions: ED Discharge Assessment Last Done: 09/19/18 17:45 The scribe's documentation has been prepared under my direction and personally reviewed by me in its entirety. I confirm that the note above accurately reflects all work, treatment, procedures, and medical decision making performed by me.
[2018-09-20 07:15] LABS: Estimated Average Glucose 126 mg/dl
[2018-09-20 08:15] LABS: Basophils # (auto) 0.03 K/uL (0-0.2); Basophils % (auto) 0.5 %; Eosinophils # (auto) 0.12 K/uL (0-0.5); Hematocrit (blood only) 32.6 % (37-47); Hemoglobin 10.3 g/dL (12.0-16.0); Immature Granulocytes # (auto) 0.03 K/uL (0.00-0.02); Immature Granulocytes % (auto) 0.5 %; Lymphocytes # (auto) 1.98 K/uL (1.2-3.4); Lymphocytes % (auto) 33.4 %; Mean Corpuscular Hgb Conc 31.6 g/dL (32-36); Mean Corpuscular Volume 83.8 fL (80-100); Mean Platelet Volume 9.7 fL (7.4-10.4); Monocytes # (auto) 0.55 K/uL (0.11-0.59); Monocytes % (auto) 9.3 %; Neutrophils # (auto) 3.21 K/uL (1.4-6.5); Neutrophils % (auto) 54.3 %; Platelet Count 272 K/uL (130-400); RDW Coefficient of Variation 14.6 % (11.5-14.5); RDW Standard Deviation 44.9 fL (36.4-46.3); Red Blood Count 3.89 M/uL (4.2-5.4); White Blood Count 5.92 K/uL (4.8-10.8)
[2018-09-20 08:42] LABS: Alanine Aminotransferase 15 U/L (12-78); Albumin Level 3.1 gm/dl (3.4-5.0); Aspartate Aminotransferase 20 U/L (15-37); BUN Creatinine Ratio 19.4 (10-20); Bilirubin Direct < 0.1 mg/dl (0-0.2); Blood Urea Nitrogen 12 mg/dl (7-18); Calcium 8.3 mg/dl (8.5-10.1); Carbon Dioxide 27 mmol/L (21-32); Chloride 108 mmol/L (98-107); Cholesterol 204 mg/dl (0-200); Creatinine Clr Calc Pharmacy 81.4 ml/min; Est GFR (African American) 103.9; Est GFR (Non-African American) 89.6; Glucose 91 mg/dl (70-99); Potassium 3.1 mmol/L (3.5-5.1); Sodium 142 mmol/L (136-145); Triglycerides 117 mg/dl (0-150); VLDL Cholesterol 23 mg/dl
[2018-09-20 08:45] LABS: Alkaline Phosphatase 76 U/L (45-117); Bilirubin,Total 0.5 mg/dl (0.2-1); Chol HDL Ratio 6; HDL Cholesterol 37 mg/dl; LDL Cholesterol Calculated 144 mg/dl; Total Protein 6.5 gm/dl (6.4-8.2)
[2018-09-20] MEDS ORDERED: POTASSIUM CHLORIDE 20 MEQ TABCR PO STA (08:54)
[2018-09-20] MEDS ORDERED: ATORVASTATIN 40 MG TAB PO SCH (09:00)
--- NOTE | 2018-09-20 09:13 | Neurology Consultation ---
Date of Consultation September 20, 2018 Assessment & Plan (1) Multi-infarct dementia: I suspect this patient has a chronic, progressive, multi-infarct dementia with associated behavioral disturbance and decline in functioning related to a recent right hemispheric subcortical lacunar infarct. She is not aphasic or hemiplegic at this time although she does exhibit significant impairments of memory, concentration, and processing speed which are likely chronic. There is no evidence for interval development of a new ischemic infarct or extension of her recent infarct on repeat brain MRI. There is no evidence for a significant thrombotic or occlusive lesion on her repeat CT angiography of the head and neck. There does not appear to be any evidence of atrial fibrillation thus far. Her recent transthoracic echocardiogram revealed a normal ejection fraction although a PFO cannot be excluded as the patient refused the bubble study. Nonconvulsive partial complex seizures may not be completely excluded although are not strongly suspected on clinical grounds at this time. The patient refused her EEG as well during her last hospitalization. At this point, I would recommend continuing with atorvastatin and Plavix. Continue to monitor patient's neurological status to ensure stability. Consider consultation with social studies teacher to discuss patient's ability to function independently at home and whether or not her is able to provide her with needed assistance. Would recommend an outpatient EEG. History of Present Illness Reason for Consultation: TIA Requesting Physician: Lita Tompkins PA-C Attending Physician: Chayo Villanueva MD History of Present Illness The patient is a 73-year old female who was readmitted yesterday for further assessment of an episode of confusion. She had been discharged from the [facility] on September 18 after a 1 day admission for a small ischemic right hemispheric stroke. Her antiplatelet and statin therapy were adjusted at that time. She had presented with a brief loss of consciousness followed by an inability to speak and a prolonged episode of confusion. She had not had any obvious convulsive activity, however, and had refused an EEG at that time. Additional testing including CT angiography of the head and neck were generally unremarkable revealing only mild atherosclerotic plaque. Echocardiography revealed a normal ejection fraction, patient refused the injection for bubble study at that time. In addition to the small acute right hemispheric infarct, her imaging had also revealed rather extensive generalized atrophy including atrophy of both hippocampi, and extensive chronic periventricular white matter ischemic disease. She also has several old lacunar infarcts. The patient returned to the emergency department yesterday afternoon. In speaking with her , she had not really been doing all that well at home. He had noticed an episode of slurred speech earlier that morning. She had also bumped the right side of her head into a pocket door while walking out of the bathroom which was followed by an episode where she appeared to be out of it , confused, and did not seem to be responding appropriately to questions. This confusion persisted for several hours yesterday. The patient does not seem to have much recollection of the episode she was considerably confused during her assessment in the emergency department, however. Her indicates that he brought her to the emergency department himself yesterday. She was able to walk to the car with his assistance and it sounds like she was responding to him , although inappropriately, in route to the hospital. She has no real recollection of these events and does not seem to remember her previous recent hospitalization. Additional testing was completed including a repeat CT of the head and CTA of the head and neck. No significant change was appreciated on these test. The CT of the head does reveal considerable generalized atrophy, chronic periventricular white matter disease, and a chronic lacunar infarct within the left internal capsule. No hemorrhage or acute process. CT angiography was negative for hemodynamically significant stenosis. An EKG revealed a normal sinus rhythm, 86 bpm. A repeat brain MRI revealed the previously identified 7 mm acute to subacute right periventricular/subinsular ischemic infarct. Again noted was significant generalized atrophy, especially the bilateral hippocampi, extensive periventricular white matter disease, and multiple old chronic lacunar infarcts. In speaking with the patient's further, he does indicate that she has been having progressive problems with her short-term memory over the past year but especially over the past few months. He indicates that he typically needs to repeat answers to questions multiple times for her. He does admit that she seems to be getting more confused in general and seems to becoming a bit more depressed as well. He has noted a lack of motivation and energy. She does take a variety of medications which are organized in a pillbox at home. Her reports that there is some occasional noncompliance with her medications which include Ambien, Lexapro, Cymbalta, cyclobenzaprine, as well as hydrocodone/acetaminophen among others. He reports that her mother suffered from dementia and multiple strokes or TIAs. Allergies Allergy/AdvReac Type Severity Reaction Status Date / Time adhesive Allergy Unknown RASH AND Verified 09/19/18 16:19 SORE No Known Drug Allergies Allergy Unknown . Verified 09/19/18 16:19 Home Medications Home Medications Medication Instructions Recorded Confirmed Type celecoxib [Celebrex] 200 mg PO UD 09/17/18 09/19/18 History cyclobenzaprine 10 mg PO BID PRN 09/17/18 09/19/18 History duloxetine [Cymbalta] 20 mg PO BID 09/17/18 09/19/18 History escitalopram oxalate [Lexapro] 10 mg PO DAILY 09/17/18 09/19/18 History fluticasone [Flonase Allergy 0 spray INTRANASAL UD 09/17/18 09/19/18 History Relief] hydrocodone-acetaminophen [[place]] 1 - 2 tab PO Q4 PRN 09/17/18 09/19/18 History lubiprostone [Amitiza] 24 mcg PO BID 09/17/18 09/19/18 History omeprazole 40 mg PO DAILY 09/17/18 09/19/18 History zolpidem [Ambien] 10 mg PO HS 09/17/18 09/19/18 History atorvastatin 40 mg PO QAM #30 tab 09/18/18 09/19/18 Rx clopidogrel 75 mg PO QAM #30 tab 09/18/18 09/19/18 Rx Patient History Medical History Aphasia (Acute) Stroke Stroke-like symptoms (Acute) Chronic back pain Depression Anxiety High cholesterol (Chronic) Hypertension (Chronic) Acid reflux (Chronic) Breast cancer Chronic back pain (Chronic) Surgical History H/O: hysterectomy History of back surgery Family History Other CVA (cerebral vascular accident) Social History Current Living Situation: Spouse Other Information That Helps Us Care for You: No Feels Safe at Home: Yes Safety Concerns: Feels Safe At This Time Smoking Status: Never smoker Hx Alcohol Use: No Hx Substance Use: No Beliefs That Will Affect Care: None Preferred Language: Korean Communication Ability: Effective Bucket Turner Required: No Review of Systems Constitutional: no fever and no chills Eyes: no blind spots and no diplopia Ear, Nose, Mouth, Throat: no hearing loss Respiratory: no cough and no dyspnea Cardiovascular: no chest pain and no palpitations Gastrointestinal: no nausea and no vomiting Genitourinary (Female): no dysuria and no urinary incontinence Musculoskeletal: + back pain and + joint pain; no myalgia Integumentary: no rash and no lesions Neurologic: as per Subjective / HPI Psychiatric: as per Subjective / HPI, + behavioral changes, + depression, + anhedonia, + abnormal sleep pattern and + irritability Hematologic / Lymphatic: no easy bleeding and no easy bruising Physical Exam 2 Vital Signs (Past 24 Hours): Last Vital Signs Temp 37.2 C 09/20/18 07:00 Pulse 82 09/20/18 07:00 Resp 16 09/20/18 07:00 BP 145/81 H 09/20/18 07:00 Pulse Ox 93 09/20/18 07:00 Physical Exam: The patient is a well-developed, well-nourished elderly female. She is alert and oriented to person, place, and hospital. She recognizes her at bedside by name. Recent memory impaired, delayed recall 1 out of 3 objects. Remote memory intact. Attention normal. Concentration impaired. 2 out of 5 spelling world backwards. Patient unable to follow multistep commands properly. Patient is able to name objects and repeat phrases but otherwise does not speak spontaneously very much. She appears to have an age-appropriate fund of knowledge with regards to vocabulary. Slow processing speed noted. Patient is moderately perseverative. Visual hanson full to confrontation. Visual acuity normal. Pupils equal round react to light and accommodation. Eye movements normal. Facial sensation intact. There is mild flattening of the right nasolabial fold. Hearing intact. Palate elevates to midline. Shoulder shrug intact. Tongue protrudes to midline. Sensation intact all modalities in all 4 limbs. Deep tendon reflexes are 1+ throughout. Plantar responses downgoing bilaterally. There is no dysdiadochokinesia or dysmetria finger to nose or heel to nuno bilaterally. Ophthalmoscopic examination reveals normal-appearing optic disks and posterior segments. No papilledema or hemorrhages. Carotid pulses normal bilaterally, no bruits to auscultation. Gait and station not tested due to safety concerns. Patient exhibits normal muscle strength and tone for all 4 limbs. No atrophy. No abnormal movements observed.
[2018-09-20] MEDS: PANTOprazole 40 MG TAB PO SCH (10:00)
[2018-09-20] MEDS: ESCITALOPRAM OXALATE 10 MG TAB PO SCH (10:01)
[2018-09-20] MEDS: LUBIPROSTONE 8 MCG CAP PO SCH ×2 (10:01→21:17)
[2018-09-20] MEDS: CLOPIDOGREL BISULFATE 75 MG TAB PO SCH (10:01)
[2018-09-20] MEDS: DULOXETINE HCL 20 MG CAP PO SCH ×2 (10:02→21:16)
--- NOTE | 2018-09-20 18:26 | Hospitalist Progress Note ---
Date of Service September 20, 2018 Assessment & Plan (1) Stroke: This patient is a 73 yo F with PMHX of HTN, HLD, breast cancer, GERD, depression, anxiety, chronic back pain and hx of previous stroke with recent hospitalization with discharge the day prior to this admission for a new CVA. She presented again with recurrent slurred speech, expressive aphasia, and confusion. CTA performed of the head and neck in the ER again showed no occlusion. Repeat brain MRI here with no new stroke - Neuro consulted - Discussed with Dr. Fitch -likely this is continued symptoms from the stroke from several days ago in the setting of likely multi-infarct dementia -Patient previously did refuse EEG and this can be done as an outpatient given that she did have amnesia and syncope with presentation for her previous stroke -Has passed swallowing evaluation and PT/OT evaluations are ordered - Continue atorvastatin but increase to 80 mg QAM -Continue Plavix 75 mg daily (was changed from aspirin therapy on 09/17 with previous admission) - Echocardiogram completed on 09/18 with normal EF-previously refused bubble study on last admission -We will continue observation overnight for new neurological symptoms (2) Aphasia: As above (3) High cholesterol: Cholesterol quite elevated but was just recently started on statin -Increase atorvastatin 80 mg daily (4) Hypertension: I do not see home medications listed as antihypertensives -Allow elevated blood pressures for now in the setting of recent acute stroke (5) Acid reflux: Given that she is on Plavix, her omeprazole should be changed to Protonix (6) Depression: -Continue duloxetine Continue Lexapro (7) Anxiety: As above (8) Chronic back pain: Has had 7 back surgeries including fusions and removal of hardware due to infection -Follows with pain management as well as her PCP prescribing her opioids - Recommend stopping celebrex due to history of CVA - Continue [place] prn, Flexeril as needed (9) Breast cancer: History of such - stable (10) Multi-infarct dementia: Neurology suspects that she has chronic, progressive, multi-infarct dementia with associated behavioral disturbance and decline in functioning related to a recent right hemispheric subcortical lacunar infarct. -Should have follow-up with neurology after discharge -Continue Plavix, atorvastatin (11) DVT prophylaxis: SCDs Disposition-remain on telemetry overnight for arrhythmia monitoring and likely discharged home tomorrow Awaiting PT evaluation Subjective Patient feeling very well at this point. Her reports that she is pretty much back to her baseline as far as her speech and mentation. She denies any further headache since yesterday, denies chest pain or shortness of breath. I discussed the case with neurology Telemetry with normal sinus rhythm to mild sinus tachycardia in the low 100s Review of Systems All systems reviewed & are unremarkable except as noted in HPI & below Physical Exam 2 Vital Signs (Past 24 Hours): Last Vital Signs Temp 37.2 C 09/20/18 15:55 Pulse 94 H 09/20/18 15:55 Resp 18 09/20/18 15:55 BP 134/74 09/20/18 15:55 Pulse Ox 92 09/20/18 15:55 Constitutional: WD/WN, vitals as above Eyes: PERRL, conjunctivae normal, anicteric sclerae ENMT: external ear and nose normal, oropharynx normal Neck: trachea midline, no thyromegaly Respiratory: normal respiratory effort, lungs clear to auscultation Cardiovascular: RRR, no murmur, no edema Gastrointestinal (Abdomen): normal bowel sounds, soft, nontender, no hepatosplenomegaly Musculoskeletal: Extremities: extremities normal to inspection; no cyanosis and no clubbing Skin: no rashes, warm and dry Neurologic: moves all extremities and awake; no focal motor deficits Psychiatric: A+Ox3, euthymic affect Results & Data Laboratory Results 09/21/18 09/21/18 09/20/18 Range/Units 06:13 06:13 07:23 WBC 6.42 (4.8-10.8) K/uL RBC 3.84 L (4.2-5.4) M/uL Hgb 10.4 L (12.0-16.0) g/dL Hct 32.4 L (37-47) % MCV 84.4 (80-100) fL MCH 27.1 (25-34) pg MCHC 32.1 (32-36) g/dL RDW Std Deviation 45.2 (36.4-46.3) fL RDW Coeff of [place] 14.6 H (11.5-14.5) % Plt Count 276 (130-400) K/uL MPV 9.5 (7.4-10.4) fL Immature Gran % (Auto) 0.2 % Neut % (Auto) 58.3 % Lymph % (Auto) 28.7 % [place] % (Auto) 10.0 % Eos % (Auto) 2.5 % Baso % (Auto) 0.3 % Immature Gran # (Auto) 0.01 (0.00-0.02) K/uL Neut # (Auto) 3.75 (1.4-6.5) K/uL Lymph # (Auto) 1.84 (1.2-3.4) K/uL [place] # (Auto) 0.64 H (0.11-0.59) K/uL Eos # (Auto) 0.16 (0-0.5) K/uL Baso # (Auto) 0.02 (0-0.2) K/uL Sodium Pending 142 (136-145) mmol/L Potassium Pending 3.1 L (3.5-5.1) mmol/L Chloride Pending 108 H (98-107) mmol/L Carbon Dioxide Pending 27 (21-32) mmol/L Anion Gap Pending 7.0 (3-11) BUN Pending 12 (7-18) mg/dl Creatinine Pending 0.63 (0.6-1.2) mg/dl Est Cr Clr Drug Dosing Pending 81.4 ml/min Est GFR ( Amer) Pending 103.9 Est GFR (Non-Af Amer) Pending 89.6 BUN/Creatinine Ratio Pending 19.4 (10-20) Glucose Pending 91 (70-99) mg/dl Estimat Average Glucose mg/dl Hemoglobin A1c (4.5-5.6) % Calcium Pending 8.3 L (8.5-10.1) mg/dl Total Bilirubin 0.5 (0.2-1) mg/dl Direct Bilirubin < 0.1 (0-0.2) mg/dl AST 20 (15-37) U/L ALT 15 (12-78) U/L Alkaline Phosphatase 76 (45-117) U/L Total Protein 6.5 (6.4-8.2) gm/dl Albumin 3.1 L (3.4-5.0) gm/dl Triglycerides 117 (0-150) mg/dl Cholesterol 204 H (0-200) mg/dl LDL Cholesterol, Calc 144 mg/dl VLDL Cholesterol, Calc 23 mg/dl HDL Cholesterol 37 mg/dl Cholesterol/HDL Ratio 6 09/20/18 09/19/18 Range/Units 07:23 18:36 WBC 5.92 (4.8-10.8) K/uL RBC 3.89 L (4.2-5.4) M/uL Hgb 10.3 L (12.0-16.0) g/dL Hct 32.6 L (37-47) % MCV 83.8 (80-100) fL MCH 26.5 (25-34) pg MCHC 31.6 L (32-36) g/dL RDW Std Deviation 44.9 (36.4-46.3) fL RDW Coeff of [place] 14.6 H (11.5-14.5) % Plt Count 272 (130-400) K/uL MPV 9.7 (7.4-10.4) fL Immature Gran % (Auto) 0.5 % Neut % (Auto) 54.3 % Lymph % (Auto) 33.4 % [place] % (Auto) 9.3 % Eos % (Auto) 2.0 % Baso % (Auto) 0.5 % Immature Gran # (Auto) 0.03 H (0.00-0.02) K/uL Neut # (Auto) 3.21 (1.4-6.5) K/uL Lymph # (Auto) 1.98 (1.2-3.4) K/uL [place] # (Auto) 0.55 (0.11-0.59) K/uL Eos # (Auto) 0.12 (0-0.5) K/uL Baso # (Auto) 0.03 (0-0.2) K/uL Sodium (136-145) mmol/L Potassium (3.5-5.1) mmol/L Chloride (98-107) mmol/L Carbon Dioxide (21-32) mmol/L Anion Gap (3-11) BUN (7-18) mg/dl Creatinine (0.6-1.2) mg/dl Est Cr Clr Drug Dosing ml/min Est GFR ( Amer) Est GFR (Non-Af Amer) BUN/Creatinine Ratio (10-20) Glucose (70-99) mg/dl Estimat Average Glucose 126 mg/dl Hemoglobin A1c 6.0 H (4.5-5.6) % Calcium (8.5-10.1) mg/dl Total Bilirubin (0.2-1) mg/dl Direct Bilirubin (0-0.2) mg/dl AST (15-37) U/L ALT (12-78) U/L Alkaline Phosphatase (45-117) U/L Total Protein (6.4-8.2) gm/dl Albumin (3.4-5.0) gm/dl Triglycerides (0-150) mg/dl Cholesterol (0-200) mg/dl LDL Cholesterol, Calc mg/dl VLDL Cholesterol, Calc mg/dl HDL Cholesterol mg/dl Cholesterol/HDL Ratio Diagnostic Findings MRI brain: IMPRESSION: 1. No change from the preceding study 2. 7 mm focus of restricted water diffusion within the right hemispheric white matter just superior lateral to the right external capsule. The findings are indicative of an acute/subacute infarct 3. Stable white matter disease and areas of prior lacunar infarction. Stable mild particular dilatation likely secondary to volume loss. _ (1) Hypertension Hypertension type: essential hypertension Qualified Code(s): I10 - Essential (primary) hypertension (2) Stroke CVA mechanism: thrombosis Precerebral and cerebral artery: unspecified cerebral artery Qualified Code(s): I63.30 - Cerebral infarction due to thrombosis of unspecified cerebral artery
[2018-09-20] MEDS: ZOLPIDEM TARTRATE 10 MG TAB PO SCH (21:17)
[2018-09-21 06:53] LABS: Basophils # (auto) 0.02 K/uL (0-0.2); Basophils % (auto) 0.3 %; Eosinophils # (auto) 0.16 K/uL (0-0.5); Eosinophils % (auto) 2.5 %; Hematocrit (blood only) 32.4 % (37-47); Hemoglobin 10.4 g/dL (12.0-16.0); Immature Granulocytes # (auto) 0.01 K/uL (0.00-0.02); Immature Granulocytes % (auto) 0.2 %; Lymphocytes # (auto) 1.84 K/uL (1.2-3.4); Lymphocytes % (auto) 28.7 %; Mean Corpuscular Hgb Conc 32.1 g/dL (32-36); Mean Corpuscular Volume 84.4 fL (80-100); Mean Platelet Volume 9.5 fL (7.4-10.4); Monocytes # (auto) 0.64 K/uL (0.11-0.59); Neutrophils # (auto) 3.75 K/uL (1.4-6.5); Neutrophils % (auto) 58.3 %; Platelet Count 276 K/uL (130-400); RDW Coefficient of Variation 14.6 % (11.5-14.5); RDW Standard Deviation 45.2 fL (36.4-46.3); Red Blood Count 3.84 M/uL (4.2-5.4); White Blood Count 6.42 K/uL (4.8-10.8)
[2018-09-21 07:33] LABS: BUN Creatinine Ratio 26.1 (10-20); Calcium 7.9 mg/dl (8.5-10.1); Est GFR (African American) 107.3; Est GFR (Non-African American) 92.6; Potassium 3.3 mmol/L (3.5-5.1)
[2018-09-21 08:25] LABS: Ferritin 9.3 ng/ml (8-388)
[2018-09-21] MEDS: LUBIPROSTONE 8 MCG CAP PO SCH (08:28)
[2018-09-21] MEDS: ESCITALOPRAM OXALATE 10 MG TAB PO SCH (08:29)
[2018-09-21] MEDS: CLOPIDOGREL BISULFATE 75 MG TAB PO SCH (08:29)
[2018-09-21] MEDS: DULOXETINE HCL 20 MG CAP PO SCH (08:29)
[2018-09-21] MEDS: PANTOprazole 40 MG TAB PO SCH (08:29)
[2018-09-21] MEDS ORDERED: POTASSIUM CHLORIDE 20 MEQ TABCR PO STA (08:42)
[2018-09-21] MEDS ORDERED: ATORVASTATIN 40 MG TAB PO SCH (09:00)
--- NOTE | 2018-09-21 09:18 | Neurology Progress Note ---
Date of Service September 21, 2018 Assessment & Plan (1) Multi-infarct dementia: Multi-infarct dementia with associated behavioral disturbance further complicated by a recent small ischemic infarct within the right cerebral hemisphere, identified during previous admission, no significant change on repeat imaging. Patient's clinical picture is further confounded by polypharmacy and difficulties with medication compliance. She is on multiple medications at home with potential for neuropsychiatric side effects. I discussed this issue directly with her at bedside this morning. Improved diligence with her medications will be necessary as well as additional follow-up with her primary care physician to determine if eliminating or reducing some of these medications is possible. This patient may follow-up with me as well as we may pursue obtaining an outpatient EEG. No further immediate recommendations. Please contact me if I may be of further assistance. Subjective Follow-up for confusion The patient is a 73-year-old female who has been readmitted to the hospital for further assessment of confusion following a small ischemic right hemispheric infarct identified during her previous admission. No significant changes identified on up-to-date imaging. Patient has been clinically stable overnight although she does tend to exhibit some nocturnal confusion according to her who is at bedside. She is a bit slow to answer questions and tends to let her take the leading conversation this morning. As described previously, she has been having difficulty with short-term memory and concentration for quite some time. Her imaging has suggested considerable chronic cerebrovascular disease, multiple chronic lacunar infarcts, and generalized atrophy, especially the bilateral hippocampi. I suspect she has an element of baseline dementia of moderate severity. She continues to live with her who has had an increasing role as her caregiver over the past few years. 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 She has seen pain management locally, Dr. Wolf, who was unable to offer any specific procedures but did suggest an assessment with pain management at [facility]. She takes a variety of medications at home for chronic pain, depression, and insomnia including duloxetine, hydrocodone, cyclobenzaprine, escitalopram, and zolpidem. It sounds like the patient has been responsible for taking these medications herself although she does not know what the specific medications are for and her believes that she takes them inconsistently. Constitutional: no fever and no chills Eyes: no blind spots and no diplopia Neurologic: as per Subjective / HPI, + behavioral changes and + memory loss Psychiatric: + behavioral changes, + depression, + abnormal sleep pattern and + anxiety Physical Exam 2 Vital Signs (Past 24 Hours): Last Vital Signs Temp 37.1 C 09/21/18 07:55 Pulse 74 09/21/18 07:55 Resp 16 09/21/18 07:55 BP 140/76 09/21/18 07:55 Pulse Ox 95 09/21/18 07:55 Physical Exam: The patient is alert and oriented to person and hospital only. Recent memory impaired. Remote memory intact. She is inattentive and exhibits impaired concentration. Patient is able to name objects and repeat phrases. Patient has an age-appropriate fund of knowledge in terms of vocabulary. Visual hanson full to confrontation. Pupils equal round react to light and accommodation. Eye movements intact. There is no facial droop or weakness. Palate elevates to midline. Shoulder shrug intact. Tongue protrudes to midline. Patient moves all 4 limbs equally. No abnormal movements observed. _ (1) Multi-infarct dementia Dementia behavioral disturbance: with behavioral disturbance Qualified Code(s ): F01.51 - Vascular dementia with behavioral disturbance
[2018-09-21] MEDS ORDERED: STROKE PATIENT DISCHARGE STA (11:00)
--- NOTE | 2018-09-21 11:01 | Discharge Summary ---
Date of Service September 21, 2018 Admission HPI Per Admitting Provider This is a 73 yo F with PMHX of HTN, HLD, breast cancer, GERD, depression, anxiety, chronic back pain and hx of previous stroke about 10 yrs ago with transient left sided numbness, who presented to the ER on 09/17/18 after an episode of LOC which occurred at home, ~7 PM and lasted for 5 minutes. Pts apparently slump over while sitting on her cough. This was followed by a period of confusion and inability to speak. The patient cannot recall the event and denies experiencing any particular warning signs. Denies focal weakness, vision disturbances, dysphagia or dysarthria. The patient was discharged yesterday after workup was completed by Neurology. CT of the head on 09/18/18 suggested an age indeterminate lacunar infarct within the left internal capsule. CT angiography of the head and neck were unrem arkable. She has been modestly hypertensive during this hospitalization but was acceptable in the setting of permissive hypertension. An echocardiogram on 09/18/18 revealed a normal ejection fraction, no PFO. The patient represents to the ER today with new onset of worsening confusion and slurred speech. The patient ate lunch around 2 pm without difficulty and had gotten up to use the bathroom sometime after. She ran into the sliding door, but proceeded to use the restroom without difficulty on her own. Denies injury or LOC. After this her noted her speech wasn't making quite as much sense and new slurring. At the time of my evaluation, her state speech has resolved back to normal, however she still isn't able to recall the events and has difficulty word finding. Her main complaint is that of a frontal headache. She is unhappy to have to stay in the hospital and is demanding her own room. at bedside also in agreement with the need for their own room. Principal Diagnosis Acute encephalopathy secondary to recent CVA and polypharmacy in the setting of multi-infarct dementia Discharge Exam Constitutional WD/WN, vitals as above Eyes PERRL, conjunctivae normal, anicteric sclerae ENMT external ear and nose normal, oropharynx normal Neck trachea midline, no thyromegaly Respiratory normal respiratory effort, lungs clear to auscultation Cardiovascular RRR, no murmur, no edema Gastrointestinal (Abdomen) normal bowel sounds, soft, nontender, no hepatosplenomegaly Musculoskeletal Extremities: extremities normal to inspection; no cyanosis and no clubbing Skin no rashes, warm and dry Neurologic moves all extremities and awake; no focal motor deficits (but is confused at times, frequently looks to her to answer ??'s) Psychiatric A+Ox3, euthymic affect Discharge Data Allergies Allergy/AdvReac Type Severity Reaction Status Date / Time adhesive Allergy Unknown RASH AND Verified 09/19/18 16:19 SORE No Known Drug Allergies Allergy Unknown . Verified 09/19/18 16:19 Consultations 09/19/18 15:57 ED Decision to Admit Stat 09/19/18 18:06 Consult Case Management - Discharge Planning Routine Consult Neurology Routine Ordered Studies 09/19/18 14:51 CT head/brain wo con Stat 09/19/18 14:55 CT angio head w con Stat CT angio neck with con Stat 09/19/18 18:06 MR brain wo/w con Stat Hospital Course (1) Stroke: This patient is a 73 yo F with PMHX of HTN, HLD, breast cancer, GERD, depression, anxiety, chronic back pain and hx of previous stroke with recent hospitalization with discharge the day prior to this admission for a new CVA. She presented again with recurrent slurred speech, expressive aphasia, and confusion. CTA performed of the head and neck in the ER again showed no occlusion. Repeat brain MRI here with no new stroke, but old CVA from a few days ago still present, not evolving - Neuro consulted - Discussed with Dr. Fitch -likely this is continued symptoms from the stroke from several days ago and Acute encephalopathy secondary to recent CVA and polypharmacy in the setting of multi-infarct dementia -Patient previously did refuse EEG and this can be done as an outpatient given that she did have amnesia and syncope with presentation for her previous stroke -Has passed swallowing evaluation and PT/OT evaluations are ordered - Continue atorvastatin but increased to 80 mg QAM -Continue Plavix 75 mg daily (was changed from aspirin therapy on 09/17 with previous admission) - Echocardiogram completed on 09/18 with normal EF-previously refused bubble study on last admission -had improvement overnight and stable for discharge to home -should have outpatient Neuro follow up -recommended stopping flexeril and discuss with PCP about weaning off Ambien. 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 (2) Aphasia: As above (3) High cholesterol: Cholesterol quite elevated but was just recently started on statin -Increased atorvastatin 80 mg daily (4) Hypertension: I do not see home medications listed as antihypertensives -Allow elevated blood pressures for now in the setting of recent acute stroke (5) Acid reflux: Given that she is on Plavix, her omeprazole should be changed to Protonix (6) Depression: -Continue duloxetine Continue Lexapro (7) Anxiety: As above (8) Chronic back pain: Has had 7 back surgeries including fusions and removal of hardware due to infection -Follows with pain management as well as her PCP prescribing her opioids - Recommend stopping celebrex due to history of CVA - Continue Olancha prn, dc Flexeril due to above (9) Breast cancer: History of such - stable (10) Multi-infarct dementia: Neurology suspects that she has chronic, progressive, multi-infarct dementia with associated behavioral disturbance and decline in functioning related to a recent right hemispheric subcortical lacunar infarct. -Should have follow-up with neurology after discharge -Continue Plavix, atorvastatin (11) Iron deficiency anemia: recommend f/u with PCP, hgb 10.4 here with microcytosis, MCV 84 Fe sat low at 6% and ferriting severely low at 9 -needs Hemoccult, GI workup (12) Polypharmacy: as above-is likely contributing to her memory difficulties and confusion insetting of multiinfarct dementia and recent CVA (13) DVT prophylaxis: SCDs provided Disposition-stable for dc to home Total Time Total Time Spent Total Time Spent (In Minutes): >30 min Total Time Includes: Examination of the Patient, Discharge Planning and Medication Reconciliation Discharge Plan Discharge Items Patient Disposition: Home - Self-Care Reason For Visit: TIA Discharge Diagnosis: Multi-infarct dementia, polypharmacy, Confusion Condition: Good Discharge Goals: Decrease discomfort, Diagnostic testing, Improve disease control and Learn about illness Activity: Resume your previous activity Lifting: Gradually increase as tolerated Bathing: No limitations Exercise/Sports: Gradually increase as tolerated Driving/Machine Use Comment: No driving Non-emergency contact: Primary Care Provider and Neurologist Call non-emergency contact if: you have any medication questions and your symptoms worsen Follow-up/Referrals: Coy Fitch MD [Physician] - (Please follow up within 1 month) Elizabeth Ramirez [Primary Care Provider] - None (Please follow up tomorrow as scheduled) Diet: Heart Healthy [facility] Provider Instructions: You were admitted with confusion and slurred speech which was thought to be secondary to your recent stroke, as well as taking multiple sedating medications in the setting of underlying dementia. You had a repeat brain MRI which did NOT show a new stroke or enlargement of the recent stroke. Your atorvastatin was increased to 80mg daily. You should continue on the Plavix. Your Prilosec (omeprazole) was changed to Protonix as the Prilosec interacts with the Plavix. You were also started on potassium pills for persistently low potassium levels. Please have Maude Ramirez recheck your potassium levels later this week. You should also talk to Maude about stopping the Flexeril and decreasing or tapering completely off the Ambien as these can cause drowsiness, confusion, and lead to falls, especially when taken in conjunction with the Olancha and in the setting of recent stroke and dementia. You should also STOP taking Celebrex as this increases your risk for stroke. You were found to have significant iron deficiency and should talk to Maude about a referral to GI for endoscopy to look for a source of bleeding in your GI tract. Please follow up with the Neurologist, Dr. Fitch, within 1 month. Please follow up with Maude tomorrow as scheduled. Prescriptions: New atorvastatin 80 mg tablet 80 mg PO DAILY Qty: 30 RF: 0 potassium chloride [Klor-Con M20] 20 mEq Tablet,Er Particles/Crystals 20 meq PO BID Qty: 60 RF: 0 pantoprazole 40 mg Tablet,Delayed Release (Dr/Ec) 40 mg PO DAILY Qty: 30 RF: 0 Continued hydrocodone-acetaminophen [[place]] 5-325 mg tablet 1 - 2 tab PO Q4 PRN (Reason: Pain) RF: 0 zolpidem [Ambien] 10 mg tablet 10 mg PO HS RF: 0 fluticasone [Flonase Allergy Relief] 50 mcg/actuation spray,suspension Intranasal UD RF: 0 escitalopram oxalate [Lexapro] 10 mg tablet 10 mg PO DAILY RF: 0 duloxetine [Cymbalta] 20 mg capsule,delayed release(DR/EC) 20 mg PO BID RF: 0 lubiprostone [Amitiza] 24 mcg capsule 24 mcg PO BID RF: 0 clopidogrel 75 mg Tablet 75 mg PO QAM Qty: 30 RF: 0 Discontinued celecoxib [Celebrex] 200 mg capsule 200 mg PO UD RF: 0 cyclobenzaprine 10 mg tablet 10 mg PO BID PRN (Reason: MUSCLE SPASMS) RF: 0 omeprazole 40 mg capsule,delayed release(DR/EC) 40 mg PO DAILY RF: 0 atorvastatin 40 mg Tablet 40 mg PO QAM Qty: 30 RF: 0 Stand-Alone Forms: Medications to Prevent Stroke, Replaced By [facility] Discharge Orders: Discharge Order (Routine); Ordered 09/21/18 Ordered By: Chayo Villanueva Admission Data Admit Date/Time: 09/19/18 17:09 Attending Provider: Chayo Villanueva Admit Provider: Omari Chanel Primary Care Provider: Elizabeth Ramirez Other Providers: Coy Fitch Service: Telemetry Other Interventions: Discharge Summary Assessment (RN) Last Done: 09/21/18 12:04 Pending Studies at Discharge: No DC Date/Time DO NOT enter until pt leaves facility: 09/21/18 12:44
--- NOTE | 2018-09-21 14:39 | Pharmacy Report ---
Pharmacist Stroke Counseling - Date of Service September 21, 2018 - Scope: Pharmacy has been consulted to provide medication discharge counseling for this patient admitted with transient ischemic attack as per the Pharmacist Discharge Counseling for Stroke Patients Protocol. - Medications on Discharge: Home Medications Medication Instructions Recorded Confirmed duloxetine [Cymbalta] 20 mg PO BID 09/17/18 09/19/18 escitalopram oxalate [Lexapro] 10 mg PO DAILY 09/17/18 09/19/18 fluticasone [Flonase Allergy 0 spray INTRANASAL UD 09/17/18 09/19/18 Relief] hydrocodone-acetaminophen [[place]] 1 - 2 tab PO Q4 PRN 09/17/18 09/19/18 lubiprostone [Amitiza] 24 mcg PO BID 09/17/18 09/19/18 zolpidem [Ambien] 10 mg PO HS 09/17/18 09/19/18 New Rx's Medication Instructions Recorded clopidogrel 75 mg PO QAM #30 tab 09/18/18 atorvastatin 80 mg PO DAILY #30 tab 09/21/18 pantoprazole 40 mg PO DAILY #30 tab 09/21/18 potassium chloride [Klor-Con M20] 20 meq PO BID #60 tab 09/21/18 - Action: The above medications, specifically ones for stroke treatment/prophylaxis, have been reviewed in detail with the patient and/or patient procurement representative(s) prior to discharge. This includes indication, common adverse reactions, drug interactions, and medication administration. Medication counseling has been employed using the teach-back method to ensure understanding. - Outcome: The patient and/or patient procurement representative(s) have demonstrated understanding of the medications. Please note, they are aware that the pharmacist will call them within 72 hours post-discharge to confirm that the appropriate medications are being taken and answer any further medication related questions the patient might have at that time. Contact information Individual to be contacted: Magui (patient) or Darell () Relationship to patient (if applicable): Phone number: [phone] Best time to call: ~12pm Additional comments: Patient's states they probably will not answer their phone, as they don' t answer calls from numbers they don't know. He asked that we leave a detailed message and speak very slowly and clearly. Thank you for allowing pharmacy to be involved in the care of this patient. Please call [phone] or [phone] with any additional questions
[2018-09-21] MEDS ORDERED: POTASSIUM CHLORIDE 20 MEQ TABCR PO SCH (21:00)
--- NOTE | 2018-09-22 16:11 | Pharmacy Report ---
Pharmacist Post D/C Phone Note - Phone Note: Date of phone call: September 22, 2018. Individual with whom pharmacist spoke to: ELIN TORRES (patient's ). Patient unable to talk due to cognitive issues. The following questions were reviewed during the phone call with responses listed below each: Can you tell me the medications that you are currently taking as well as when and how you take each medication? -See Table Below When have you missed any doses of your medications? - Denies. aware of proper procedures for missed doses. What side effects are you having from your medications, specifically, the new medications you were started on? - Denies What questions do you have about your medications? (1) Why was Prilosec discontinued? * PCP wanted to know reason PPI was changed. * Explained potential drug interaction between Plavix + Prilosec; potential decr ' Plavix efficacy * states patient no longer taking Prilosec; agrees to remain on Protonix (Rx will need renewed/refilled) (2) Why was Lotrel discontinued? * PCP wanted to know the reason why Lotrel was stopped. Apparently patient was on Lotrel (amlodipine/benazepril) 5/20mg daily prior to admission. * Unable to find documentation in records that state Lotrel was intentionally and specifically discontinued. Unable to find that it was a recorded home medication. No contraindications to using Lotrel noted. states patient 's BP was 132/78 at PCP office today. * Explained that it is possibly a medication reconciliation error/accidental Rx omission. * Advised to monitor home BP and can discuss with PCP about restarting in the future if indicated. What problems are you having obtaining your medications? - Denies; refills needed for new Rx's When is your next appointment with your primary care doctor? - Saw PCP today; next appointment in October. Awaiting Neurology appointment. Additional comments: * Spent >30 minutes on phone with . He was very overwhelmed and had a lot of questions. * Prior to stroke patient was independently managing her medications. He really did not understand or know what medications patient was taking. He is still having some trouble organizing and keep tracking of her Rx's. For now, seems to be relying on hospital discharge medication list (which PCP seems to agree with, with some noted questions as above). * Patient was apparently taking aspirin prior to admission, but no longer takes. * PCP is tapering off Ambien over the next month as recommended by [facility] Hospitalist. * She remains off Celebrex (potential incr' risk for bleeding with Plavix) and cyclobenzaprine. * Atorvastatin was incr' to 80mg (from 40mg); aware can use old 40mg tablets (take 2 of them) to get new dose. * Of note, patient is apparently prescribed SSRI (Lexapro) & SNRI (Cymbalta)... potential duplicate therapy and incr' risk for serotonin syndrome and bleeding/ bruising with Plavix. Both are low doses. Unclear why she is on both vs. maximizing one agent. Recommend discuss with PCP about tapering off one and titrating the other rather than staying on duplicate SSRI and SNRI. * Patient with history of hypokalemia; apparently ran out and never asked for refills. Advised to continue 20mEq BID as prescribed currently. Recommend repeat labs. New Rx from PCP will be needed if therapy should continue. * Advised Bill to call back if any other concerns or questions as a lot of information was provided on phone. PCP can also call if any concerns or questions about above recommendations. As per the Pharmacist Discharge Counseling for Stroke Patients Protocol, this phone call has been completed within 72 hours of discharge. Thank you for allowing us to be involved in the care of this patient. - Home Medications: Home Medications Medication Instructions Recorded Confirmed duloxetine [Cymbalta] 20 mg PO BID 09/17/18 09/19/18 escitalopram oxalate [Lexapro] 10 mg PO DAILY 09/17/18 09/19/18 fluticasone [Flonase Allergy 0 spray INTRANASAL UD 09/17/18 09/19/18 Relief] *1 spray prn allergies* hydrocodone-acetaminophen [[place]] 1 - 2 tab PO Q4 PRN 09/17/18 09/19/18 lubiprostone [Amitiza] 24 mcg PO BID 09/17/18 09/19/18 zolpidem [Ambien] 10 mg PO HS 09/17/18 09/19/18 New Rx's Medication Instructions Recorded clopidogrel 75 mg PO QAM #30 tab 09/18/18 atorvastatin 80 mg PO DAILY #30 tab 09/21/18 pantoprazole 40 mg PO DAILY #30 tab 09/21/18 potassium chloride [Klor-Con M20] 20 meq PO BID #60 tab 09/21/18
== END 2018-09-21 12:44 | disposition home or self-care (01) | DRG 65 ==
LOC: ED 14:41 → 2S 17:09 → SUATTDRO 17:09 → 2S 17:45

== ENCOUNTER 2018-11-11 05:02 | Inpatient (IN) ==
--- NOTE | 2018-11-06 14:10 | Anesthesiology Consultation ---
Date of Service November 06, 2018 Assessment & Plan Chart Review Chart Review: Acceptable Risk for Surgery and Patient NOT seen in Pre Admission Testing Urgent case due to fractured right distal fibula/tibula. Pt at increased risk due to her recent stroke, but due to non-elective nature of procedure, pt is at acceptable risk to proceed. Consults Requested none Pt seen by neurologist during her hospitalization for her stroke in 09/2018. Per neurologist: (1) Multi-infarct dementia: Multi-infarct dementia with associated behavioral disturbance further complicated by a recent small ischemic infarct within the right cerebral hemisphere, identified during previous admission, no significant change on repeat imaging. Patient's clinical picture is further confounded by polypharmacy and difficulties with medication compliance. She is on multiple medications at home with potential for neuropsychiatric side effects. I discussed this issue directly with her at bedside this morning. Improved diligence with her medications will be necessary as well as additional follow-up with her primary care physician to determine if eliminating or reducing some of these medications is possible. This patient may follow-up with me as well as we may pursue obtaining an outpatient EEG. History Surgery Operation Date: 11/11/18 07:00 Proposed Procedures p Right Distal Fibula and Tibia Fracture Open Reduction Internal Fixation - Link Sherman MD Height/Weight Height: 1.73 m Weight: 68.039 kg Allergies Allergy/AdvReac Type Severity Reaction Status Date / Time adhesive Allergy Unknown RASH AND Verified 11/06/18 13:05 SORE No Known Drug Allergies Allergy Unknown . Verified 11/06/18 13:05 Medications Home Medications Medication Instructions Recorded Confirmed Last Taken Amitiza 24 mcg PO BID 09/17/18 11/06/18 11/01/18 duloxetine [Cymbalta] 20 mg PO BID 09/17/18 11/06/18 11/01/18 escitalopram oxalate [Lexapro] 10 mg PO DAILY 09/17/18 11/06/18 11/01/18 fluticasone propionate [Flonase 1 spray INTRANASAL UD PRN 09/17/18 11/06/18 11/01/18 Allergy Relief] hydrocodone-acetaminophen [[place]] 1 - 2 tab PO Q4 PRN 09/17/18 11/06/18 11/02/18 zolpidem [Ambien] 5 mg PO HS 09/17/18 11/06/18 11/01/18 clopidogrel 75 mg PO QAM #30 tab 09/18/18 11/06/18 11/01/18 atorvastatin 80 mg PO DAILY #30 tab 09/21/18 11/06/18 11/01/18 pantoprazole 40 mg PO DAILY #30 tab 09/21/18 11/06/18 11/01/18 potassium chloride [Klor-Con M20] 20 meq PO BID #60 tab 09/21/18 11/06/18 11/01/18 lisinopril [Prinivil] 5 mg PO DAILY 11/02/18 11/06/18 11/01/18 acetaminophen [Tylenol Extra 500 mg PO TID PRN 11/06/18 11/06/18 Unknown Strength] Past Medical History Medical History Aphasia (Acute) H/O FROM STROKE 09/2018. Stroke SEPTEMBER 17, 2018. TREATED AT [facility]. FOLLOWED WITH DR HOLT. SHORT TERM MEMORY DIFFICULTIES. Stroke-like symptoms (Acute) 09/2018 Depression Anxiety High cholesterol (Chronic) Hypertension (Chronic) Acid reflux (Chronic) Breast cancer 1999. RIGHT LUMPECTOMY. Chronic back pain (Chronic) Degenerative disc disease Deviated septum Fusion of spine LUMBAR On anticoagulant therapy Osteoarthritis Peptic ulcer disease H/O BLEEDING ULCERS Transient ischemic attack (TIA) H/O. LAST EPISODE WAS OCTOBER 2017 Past Family History Family History Other Stroke Past Surgical History Surgical History H/O: hysterectomy History of arthroscopy BILATERAL KNEE ARTHROSCOPY History of back surgery (7 TOTAL) History of carpal tunnel release BILATERAL History of cataract surgery BILATERAL History of colonoscopy History of discectomy LUMBAR History of esophagogastroduodenoscopy (EGD) Hx of lumpectomy RIGHT Social History Smoking Status: Never smoker Do You Dip or Chew Tobacco: No Hx Alcohol Use: No Hx Substance Use: No substance use type: does not use Testing Electrocardiogram Date: 09/19/18 Findings: + NSR @ (86 bpm) Chest X-Ray Date: 09/19/18 FINDINGS: Surgical clips project over the right breast and axillary region. The heart is mildly enlarged. There is no lobar consolidation. Increased right basilar markings are likely atelectatic. Gas beneath the right hemidiaphragm was present on the prior study and likely represents colonic interposition. There is no failure. There are no specific and pleural effusions.[ IMPRESSION: 1. Right basilar opacities statistically atelectatic. A pneumonia could appear similar but is felt to be statistically less likely 2. Mild cardiomegaly. No evidence of failure. Echocardiogram Date: 09/18/18 EF: 65-70% LV Function: normal RWMA: + none Other Findings: + LVH (Mild CLVH) Valvular Disease: + no significant valvular disease Other Testing EEG 09/30/2018: Interpretation This is abnormal routine EEG secondary to frequent intermittent generalized slowing during the awake state. There was no electrographic seizures or epileptiform discharges. Clinical Correlation This EEG indicates mild encephalopathy of nonspecific etiology. Laboratory Results Laboratory Tests 09/17/18 09/19/18 09/19/18 Unknown 15:16 18:36 WBC Hgb Hct Plt Count PT 10.7 INR 1.1 APTT 26.2 Sodium Potassium Chloride Carbon Dioxide BUN Creatinine Glucose Hemoglobin A1c 6.0 H TSH 2.570 09/21/18 09/21/18 06:13 06:13 WBC 6.42 Hgb 10.4 L Hct 32.4 L Plt Count 276 PT INR APTT Sodium 141 Potassium 3.3 L Chloride 108 H Carbon Dioxide 26 BUN 15 Creatinine 0.57 L Glucose 103 H Hemoglobin A1c TSH
--- NOTE | 2018-11-07 12:15 | History & Physical Report ---
Date of Service November 07, 2018 Assessment & Plan (1) Bimalleolar fracture of right ankle: Patient is scheduled for an overnight internal fixation of her right distal fibula and distal tibia with Dr. Sherman on November 11, 2018. Risks and complications of surgery were explained to the patient and include but are not limited to infection, pain, bleeding, scarring, nerve and blood vessel damage, wound problems, weakness, stiffness, incomplete relief of symptoms, hardware failure, fracture, malunion, nonunion, blood clots, embolisms, heart attack, stroke and . All questions were answered and informed consent was obtained by Dr. Sherman. She does not in a preoperative laboratory work or EKG prior to surgery. She did have preoperative medical clearance from her family physician Dr. Diane Ramon. She has been cleared for surgery. Her Plavix was stopped as of December 06, 2018. This was approved by her neurologist Dr. Fitch. Postoperatively she will be placed on something for DVT prophylaxis, this is still to be determined. We will also resume her Plavix after surgery. She will most likely stay over at least one night in the hospital. She will be nonweightbearing after surgery. She would like to be discharged to her home with potentially in-home therapy or nursing. She may need a senior living facility. She will have postoperative PT in the hospital. Postoperative course was discussed. She will follow up with physical therapy 4-5 days after surgery as well as tendo [address] Sherman for suture removal. All questions were answered and she knows to call with any further problems, questions or concerns. Present on Admission?: Yes History of Present Illness Chief Complaint: right ankle injury on November 01, 2018 Primary Care Provider: Elizabeth Celina Ramirez Patient is a 73-year-old female who lost her balance and fell injuring her right ankle on November 01, 2018. She immediately went to the emergency room and was diagnosed with a distal fibular fracture. She was referred to Dr. Sherman for further evaluation and treatment. She states that she was up getting something out of a closet and she fell from a standing height. She developed immediate pain in her right ankle. She states that she did have a previous right ankle injury many years ago which almost required surgery. She states that she does have frequent falls. She had a recent stroke back in September was admitted to [facility] the time for that. She has been laced in a splint her has been taking care of her. Prior to the fall she states that she is using a cane to assist with ambulation due to the residual effects from her recent stroke.She had x-rays of her ankle which showed no evidence of a medial malleolus fracture or any widening of the mortise. There was evidence of an anterior fracture fragment on the lateral view. And a nondisplaced distal fibular fracture. CT scan of her left ankle was performedAnd showed a displaced fracture of anterolateral tibial plafond, no talofibular syndesmosis disruption, nondisplaced fracture of her distal fibula and an acute ankle joint effusion. Due to these findings surgical intervention was recommended. She agrees to proceed with surgery. She is scheduled for an open reduction internal fixation of her right distal tibia and fibula fractures with Dr. Sherman on November 11, 2018 at the [facility] Allergies Allergy/AdvReac Type Severity Reaction Status Date / Time adhesive Allergy Unknown RASH AND Verified 11/06/18 13:05 SORE No Known Drug Allergies Allergy Unknown . Verified 11/06/18 13:05 smoke AdvReac Unknown Uncoded 11/07/18 12:19 Home Medications Home Medications Medication Instructions Recorded Confirmed Type Amitiza 24 mcg PO BID 09/17/18 11/06/18 History duloxetine [Cymbalta] 20 mg PO BID 09/17/18 11/06/18 History escitalopram oxalate [Lexapro] 10 mg PO DAILY 09/17/18 11/06/18 History fluticasone propionate [Flonase 1 spray INTRANASAL UD PRN 09/17/18 11/06/18 History Allergy Relief] hydrocodone-acetaminophen [[place]] 1 - 2 tab PO Q4 PRN 09/17/18 11/06/18 History zolpidem [Ambien] 5 mg PO HS 09/17/18 11/06/18 History clopidogrel 75 mg PO QAM #30 tab 09/18/18 11/06/18 Rx atorvastatin 80 mg PO DAILY #30 tab 09/21/18 11/06/18 Rx pantoprazole 40 mg PO DAILY #30 tab 09/21/18 11/06/18 Rx potassium chloride [Klor-Con M20] 20 meq PO BID #60 tab 09/21/18 11/06/18 Rx lisinopril [Prinivil] 5 mg PO DAILY 11/02/18 11/06/18 History acetaminophen [Tylenol Extra 500 mg PO TID PRN 11/06/18 11/06/18 History Strength] Past Med/Surg History Medical History Aphasia (Acute) H/O FROM STROKE 09/2018. Stroke SEPTEMBER 17, 2018. TREATED AT [facility]. FOLLOWED WITH DR FITCH. SHORT TERM MEMORY DIFFICULTIES. Stroke-like symptoms (Acute) 09/2018 Depression Anxiety High cholesterol (Chronic) Hypertension (Chronic) Acid reflux (Chronic) Breast cancer 1999. RIGHT LUMPECTOMY. Chronic back pain (Chronic) Degenerative disc disease Deviated septum Fusion of spine LUMBAR On anticoagulant therapy Osteoarthritis Peptic ulcer disease H/O BLEEDING ULCERS Transient ischemic attack (TIA) H/O. LAST EPISODE WAS OCTOBER 2017 Surgical History H/O: hysterectomy History of arthroscopy BILATERAL KNEE ARTHROSCOPY History of back surgery (7 TOTAL) History of carpal tunnel release BILATERAL History of cataract surgery BILATERAL History of colonoscopy History of discectomy LUMBAR History of esophagogastroduodenoscopy (EGD) Hx of lumpectomy RIGHT Family History Other Stroke Social History Preferred Language: Tajik Communication Ability: Effective Gut Carrier Required: No Beliefs That Will Affect Care: None marital status: Current Living Situation: Spouse Other Information That Helps Us Care for You: No Feels Safe at Home: Yes Safety Concerns: Feels Safe At This Time Smoking Status: Never smoker Hx Alcohol Use: No Hx Substance Use: No Review of Systems All systems reviewed & are unremarkable except as noted in HPI & below Physical Exam Physical Exam: Weight is 150 pounds Constitutional: well developed, well nourished and average body habitus; no acute distress Eyes: PERRL, conjunctivae normal, anicteric sclerae EOM intact bilaterally ENMT: external ear and nose normal, oropharynx normal Neck: trachea midline, no thyromegaly Respiratory: normal respiratory effort, lungs clear to auscultation Cardiovascular: RRR, no murmur, no edema Rate/Rhythm: regular rhythm Heart Sounds: normal S1 and normal S2 Extremities: normal capillary refill and + edema (Right foot/ankle); no calf tenderness Gastrointestinal (Abdomen): normal bowel sounds, soft, nontender, no hepatosplenomegaly Inspection/Auscultation: abdomen not distended Musculoskeletal: Exam of her right lower extremity. She has no calf tenderness with palpation. Her calf is supple. She is nontender in the medial aspect of her ankle. She is tender along the anterior joint line as well as the lateral distal fibular. Capillary refill is less than 2 seconds. Her foot is warm. Pedal pulses are not palpable. The foot and leg are nontender. She can wiggle the toes and flex and extend the ankle against resistance. Achilles tendon is intact. Decreased range of motion of the ankle. She tolerates slight flexion and extension of the ankle. Skin is intact. Positive edema and ecchymosis. No fracture blisters evident. Skin: no rashes, warm and dry Trauma: + contusion Psychiatric: A+Ox3, euthymic affect Speech: normal rate/rhythm/volume of speech Results & Data Laboratory Results Labs performed October 06, 2018: BMP: Sodium 138, potassium 3.5, chloride 101, B19, creatinine 0.65, Calcium, 9.2. CBC: White blood cell count 9.26, hemoglobin 10.7, hematocrit 34.8, platelets 354 Ferritin 15.3 B12 242 Diagnostic Findings X-rays of right ankle:No evidence of medial malleolus fracture. No evidence of widening of the ankle mortise. No evidence of syndesmotic injury. There appears to be an anterior fracture fragment visible on the lateral view. No posterior fractures identified. There is an old ossicle which is present from films of 2015 of her lateral fibula. There is a nondisplaced fracture of her distal fibula possibly Martinez a evident today. CT ankle RT wo con CLINICAL HISTORY: 73 years-old Female presenting with FRACTURE OF RIGHT ANKLE. TECHNIQUE: Multidetector CT of the right ankle was performed without the use of intravenous contrast. 3-D volumetric and/or maximum intensity projection (MIP) images were subsequently reconstructed for review. IV contrast: None. One or more dose lowering techniques were used consistent with the principles of ALARA (as low as reasonably achievable), including automatic exposure control, mA or kV adjustment to individual patient size, and/or use of iterative reconstruction. COMPARISON: Plain radiographs performed on 11/04/2018 and 11/02/2018. CT DOSE (mGy.cm): The estimated cumulative dose is 210.58 mGy.cm. FINDINGS: Vertical Lathe Operator topogram: Unremarkable. Nondisplaced primarily transversely oriented distal fibular metaphyseal fracture extending from the posterior cortex proximally to the anterior cortex distally. Displaced fracture fragment of the tibial plafond and anterolaterally with 8 mm of diastases at the anterior aspect of the fracture plane (series 3 image 206). This fracture fragment is also displaced slightly inferiorly and anteriorly. There is a 5 mm of displacement at the level of the ankle mortise (series 300 image 46). There is no widening of the medial or lateral clear spaces. Posttraumatic or degenerative related ossicle at the inferior pole of the lateral malleolus. No convincing evidence of medial or posterior malleoli fractures. Significant ankle joint effusion is present. Diffuse subcutaneous edema throughout the ankle. Muscle atrophy compatible with the patient's age. Atherosclerosis noted. IMPRESSION: 1. Displaced fracture of the anterolateral tibial plafond. This does not appear to disrupt distal tibiofibular syndesmosis. 2. Nondisplaced distal fibular fracture. 3. Ankle joint effusion. ECG Additional Comments: EKG performed [facility] on September 19, 2018 revealed normal sinus rhythm, normal EKG.
[2018-11-11] MEDS ORDERED: LR 15ML/HR IV SCH (06:00)
[2018-11-11] MEDS ORDERED: CEFAZOLIN 1000MG 1,000 MG/7.5 ML SYR IV SCH (06:00)
[2018-11-11] MEDS ORDERED: ROPIVACAINE 0.5% 5 MG/ML 30 ML VIAL ONE (06:29)
[2018-11-11] MEDS ORDERED: BUPIVACAINE 0.5 % 5 MG/1 ML PF 10ML VIAL ONE (06:29)
[2018-11-11] MEDS ORDERED: PROPOFOL IV EMULSION 10 MG/ML 20 ML VIAL IV ONE (06:36)
[2018-11-11] MEDS ORDERED: fentaNYL citrate 100 MCG/2 ML VIAL ONE ×2 (06:36→07:20)
[2018-11-11] MEDS ORDERED: ONDANSETRON INJ 2 MG/ML 2 ML VIAL ONE (06:36)
[2018-11-11] MEDS ORDERED: LIDOCAINE HCL 2% 2 ML VIAL/AMP(20MG/ML) INFIL ONE (06:36)
[2018-11-11] MEDS ORDERED: POVIDONE-IODINE OP SOLN 30 ML BTL ONE (06:45)
[2018-11-11] MEDS ORDERED: BUPIVACAINE/EPINEPHRINE 0.5% MPF 1:200,000 30 ML VIAL ONE (06:45)
[2018-11-11] MEDS ORDERED: LIDOCAINE/EPINEPHRINE 1% 20 ML VIAL ONE (06:45)
[2018-11-11] MEDS ORDERED: MIDAZOLAM HCL 1 MG/ML 2ML VIAL ONE (06:46)
--- NOTE | 2018-11-11 06:46 | History & Physical Bridge Note ---
Date of Service November 11, 2018 History & Physical Bridge Note I have examined the patient, reviewed the History & Physical and in the interval since the performance of the History & Physical I have noted the following changes of clinical significance: no changes noted
[2018-11-11] MEDS ORDERED: HYDROmorphone INJ 1 MG/ML SYRINGE IV PRN (07:08)
[2018-11-11] MEDS ORDERED: ePHEDrine sulfate 50 MG/ML AMP IV PRN (07:08)
[2018-11-11] MEDS ORDERED: ATROPINE SULFATE 0.1 MG/ML 10ML SYR IV PRN (07:08)
[2018-11-11] MEDS ORDERED: ePHEDrine sulfate 50 MG/ML AMP ONE (09:09)
--- NOTE | 2018-11-11 09:42 | Fluoroscopy Report ---
FL tibia/fibula RT 2V CLINICAL HISTORY: ORIF RT TIB FIB COMPARISON STUDY: 11/05/2018 FLUOROSCOPY TIME: 17 seconds NUMBER OF FLUOROSCOPIC IMAGES: 2 FINDINGS: Image intensifier assistance for open reduction internal fixation of the distal fibula as w ell as tibia. Alignment appears anatomic. IMPRESSION: Upper reduction internal fixation of the distal fibula as well as distal tibia. Alignment is anatomic. The above report was generated using voice recognition software. It may contain grammatical, syntax or spelling errors. Electronically signed by: Virgilio Aguilar M.D. 11/11/2018 9:41 AM
--- NOTE | 2018-11-11 09:57 | Operative Report ---
Post Operative Report Pre & Post Diagnosis Operation Date: 11/11/18 07:00 Pre-Op Diagnosis: Right Distal Fibula and Tibia Fracture Post-Op Diagnosis: Right Distal Fibula and Tibia Fracture Procedure Operation Date: 11/11/18 07:00 Actual Procedures p Right Distal Fibula and Tibia Fracture Open Reduction Internal Fixation(Right) - Link Sherman MD Surgeon Link Sherman M.D. Precision Layout Worker Jackie Redman PA-C Estimated Blood Loss 15 Findings Consistent with Post-Op Diagnosis Specimens None Drains None Anesthesia Type General Regional Complications none Disposition Accompanied Patient To Recovery: No Disposition: Recovery Room Description of Procedure Patient was taken to the operating room, placed under general anesthesia, given peripheral nerve block. Time out performed, given 1 gm IV Ancef for surgical prophylaxis. I was present during the entire case, please see Dr. Sherman's operative report for further detail. I assisted with positioning, exposure, reduction of fractures, implantation of hardware and closure. Patient was awakened and taken to the recovery room in stable condition. I attest to the content of the Intraoperative Record and any orders documented therein. Any exceptions are noted below.
--- NOTE | 2018-11-11 10:16 | Anesthesiology Progress Note ---
Date of Service November 11, 2018 Anesthesia Post Procedure Vital Signs Vital Signs: Temp Pulse Resp BP Pulse Ox 11/11/18 05:47 37.2 C 81 18 162/70 H 97 Pain Intensity Back: Pain Intensity: 7 Notes Mental Status: alert / awake / arousable Patient Amnestic to Procedure: Yes Nausea / Vomiting: adequately controlled Pain: adequately controlled Airway Patency, RR, SpO2: stable & adequate BP & HR: stable & adequate Hydration State: stable & adequate Anesthetic Complications: no major complications apparent and Pt Satisfied with anesthetic care
--- NOTE | 2018-11-11 10:21 | Anesthesiology Consultation ---
Date of Service November 11, 2018 Assessment & Plan (1) Encounter for pre-operative examination: Chart Review Chart Review: data entry technician initiated NPO Date Last Intake of Fluids: 11/10/18 Time Last Intake of Fluids: 20:00 Date Last Intake of Solids: 11/10/18 Time Last Intake of Solids: 20:00 History Surgery Operation Date: 11/11/18 07:00 Proposed Procedures p Right Distal Fibula and Tibia Fracture Open Reduction Internal Fixation - Link Sherman MD Height/Weight Height: 5 ft 8 in Weight: 68.946 kg Allergies Allergy/AdvReac Type Severity Reaction Status Date / Time adhesive Allergy Unknown RASH AND Verified 11/11/18 05:37 SORE No Known Drug Allergies Allergy Unknown . Verified 11/11/18 05:37 smoke AdvReac Unknown Uncoded 11/07/18 12:19 Medications Home Medications Medication Instructions Recorded Confirmed Last Taken Amitiza 24 mcg PO BID 09/17/18 11/11/18 11/10/18 20:00 duloxetine [Cymbalta] 20 mg PO BID 09/17/18 11/11/18 11/10/18 20:00 escitalopram oxalate [Lexapro] 10 mg PO DAILY 09/17/18 11/11/18 11/10/18 fluticasone propionate [Flonase 1 spray INTRANASAL UD PRN 09/17/18 11/11/18 11/10/18 08:00 Allergy Relief] hydrocodone-acetaminophen [[place]] 1 - 2 tab PO Q4 PRN 09/17/18 11/11/18 11/10/18 20:00 zolpidem [Ambien] 5 mg PO HS 09/17/18 11/11/18 11/10/18 20:00 clopidogrel 75 mg PO QAM #30 tab 09/18/18 11/11/18 11/07/18 atorvastatin 80 mg PO DAILY #30 tab 09/21/18 11/11/18 11/10/18 08:00 pantoprazole 40 mg PO DAILY #30 tab 09/21/18 11/11/18 11/10/18 08:00 potassium chloride [Klor-Con M20] 20 meq PO BID #60 tab 09/21/18 11/11/18 11/10/18 20:00 lisinopril [Prinivil] 5 mg PO DAILY 0311/11/18 11/10/18 08:00 acetaminophen [Tylenol Extra 500 mg PO TID PRN 11/06/18 11/11/18 11/10/18 12:00 Strength] Active Medications Generic Name Dose Route Start Last Admin Trade Name Wilfredo PRN Reason Stop Dose Admin Lactated Ringer's 1,000 mls @ 15 mls/hr 11/11/18 06:00 11/11/18 07:04 Lr IV 11/12/18 05:59 Infused .Q24H LIOR Infusion Cefazolin Sodium 1,000 mg in 7.5 mls @ 2.5 mls/min 11/11/18 06:00 11/11/18 07:04 Ancef 1000mg IV 11/11/18 18:00 2.5 mls/min PREOP LIOR Administration Protocol Past Medical History Medical History Aphasia (Acute) H/O FROM STROKE 09/2018. Stroke SEPTEMBER 17, 2018. TREATED AT [facility]. FOLLOWED WITH DR HOLT. SHORT TERM MEMORY DIFFICULTIES. Stroke-like symptoms (Acute) 09/2018 Depression Anxiety High cholesterol (Chronic) Hypertension (Chronic) Acid reflux (Chronic) Breast cancer 1999. RIGHT LUMPECTOMY. Chronic back pain (Chronic) Degenerative disc disease Deviated septum Fusion of spine LUMBAR On anticoagulant therapy Osteoarthritis Peptic ulcer disease H/O BLEEDING ULCERS Transient ischemic attack (TIA) H/O. LAST EPISODE WAS OCTOBER 2017 Past Family History Family History Other Stroke Past Surgical History Surgical History H/O: hysterectomy History of arthroscopy BILATERAL KNEE ARTHROSCOPY History of back surgery (7 TOTAL) History of carpal tunnel release BILATERAL History of cataract surgery BILATERAL History of colonoscopy History of discectomy LUMBAR History of esophagogastroduodenoscopy (EGD) Hx of lumpectomy RIGHT Social History Smoking Status: Never smoker Do You Dip or Chew Tobacco: No Hx Alcohol Use: No Hx Substance Use: No substance use type: does not use Physical Exam Vital Signs Last Vital Signs Temp 36.2 C L 11/11/18 09:57 Pulse 80 11/11/18 10:15 Resp 15 11/11/18 10:15 BP 135/74 11/11/18 10:15 Pulse Ox 99 11/11/18 10:15 Testing Electrocardiogram Date: 09/19/18 Findings: + NSR @ (86 bpm) Chest X-Ray Date: 09/19/18 FINDINGS: Surgical clips project over the right breast and axillary region. The heart is mildly enlarged. There is no lobar consolidation. Increased right basilar markings are likely atelectatic. Gas beneath the right hemidiaphragm was present on the prior study and likely represents colonic interposition. There is no failure. There are no specific and pleural effusions.[ IMPRESSION: 1. Right basilar opacities statistically atelectatic. A pneumonia could appear similar but is felt to be statistically less likely 2. Mild cardiomegaly. No evidence of failure. Echocardiogram Date: 09/18/18 EF: 65-70% LV Function: normal RWMA: + none Other Findings: + LVH (Mild CLVH) Valvular Disease: + no significant valvular disease Other Testing EEG 09/30/2018: Interpretation This is abnormal routine EEG secondary to frequent intermittent generalized slowing during the awake state. There was no electrographic seizures or epileptiform discharges. Clinical Correlation This EEG indicates mild encephalopathy of nonspecific etiology. Laboratory Results Blood Type A Positive 11/11/18 06:08 Antibody Screen NEGATIVE 11/11/18 06:08
--- NOTE | 2018-11-11 10:31 | Operative Report ---
Post Operative Report Pre & Post Diagnosis Operation Date: 11/11/18 07:00 Pre-Op Diagnosis: Right Distal Fibula and Tibia Fracture Post-Op Diagnosis: Right Distal Fibula and Tibia Fracture Procedure Operation Date: 11/11/18 07:00 Actual Procedures p Right Distal Fibula and Tibia Fracture Open Reduction Internal Fixation(Right) - Link Sherman MD Surgeon Link Sherman MD Medicaid Biller Jackie Redman PA-C Estimated Blood Loss 15 Findings Consistent with Post-Op Diagnosis Specimens None Anesthesia Type General Regional Complications none Disposition Accompanied Patient To Recovery: No Disposition: Recovery Room Indications Patient is a 73-year-old female. She has complicated past medical history including recent stroke. She fell about 10 days prior to surgery and sustained a nondisplaced right distal fibular fracture. She also has a tillaux type fracture which I think is an avulsion of the anterior syndesmotic ligaments. This fracture is displaced. We talked about the options including nonoperative management. I recommended surgery and she agrees to proceed. My concern is that the fracture fragment is displaced may cause chronic pain and may affect ankle stability. Description of Procedure Informed consent obtained. Patient identified. She identified the operative site as the right ankle. I marked with my initials. Preop surgical timeout performed. Preop dose of IV antibiotics given. She was positioned supine on the OR table with a tourniquet on the right thigh and a bump under the right hip. The right leg was pre-scrubbed and then prepped and draped in the usual sterile fashion. DVT prophylaxis intraoperatively with mechanical devices postoperatively with early mobility and Lovenox. She has been seen and evaluated by medicine for preoperative evaluation and clearance. The limb was exsanguinated with the Esmarch. Tourniquet inflated 250 mmHg. Prior to this the ankle was examined and there was about 5 mm of medial to lateral plate. Additionally bruising was noted over the posterior lateral aspect of the ankle. Edema was trace to 1+ with skin wrinkles in place and no blistering of the skin. A long curvilinear incision about 15-18 cm in length was made at the anterior border of the fibula and curving distally across the ankle joint. The skin was incised. The superficial peroneal nerve was identified dissected out and retracted with the anterior skin flap. A full- thickness skin flap was elevated posteriorly down to the posterior margin of the fibula. A flap was elevated anterior into the fracture fragment was identified. The superior and medial margins of the fracture were incised as the periosteum there remained intact. The fracture site was evacuated of hematoma. The joint capsule was incised distally to identify the articular surface. The small fracture which was about 12 mm high 15 mm wide and about a centimeter deep was then anatomically reduced and held in position with a small guidepin. I then took a small angled T plate and prevented distally to conform to the curvature of the distal tibia. I placed this over the guidepin and inserted a 3.5 mm cannulated screw. I followed this with a screw proximally to compress the plate to the shaft another 3.5 mm cannulated screw distally and another cortical screw proximally. Fracture was anatomically reduced and the syndesmotic ligaments we re preserved to the fragment. The fragment was not stripped of its soft tissue attachments. I then turned my attention to the distal fibula where I incised the periosteum and elevated subperiosteally again preserving the syndesmotic ligaments. A small distal fibular locking plate was bent to conform to the distal fibula then affixed in place with a proximal bicortical screw followed by 4 distal locking screws and another bicortical proximal screw in the shaft. The fracture was stable. The translation noted previously was eliminated. The syndesmosis was intact. Fluoroscopic images were used during the procedure to confirm positioning of the hardware and reduction of the fractures. The tourniquet was let down and meticulous hemostasis was obtained. Tourniquet time was approximately 85 minutes. Irrigation with Betadine lavage and sterile saline was performed. I was able to reapproximate the periosteum over the distal portion of the plate on the tibia. Only 02 stitches could be applied to cover this as the remainder would not reach. The plate was at the level of the joint but away from the fibula and the talus. The talus could be placed through full range of motion and stress without any impingement upon the plate. The periosteum was closed over the distal fibula plate with 0 Vicryl. The skin was then closed with 4-0 Vicryl. Care was taken at all times during the surgery to protect the skin. The skin was then closed with laura. Xeroform 4 x 4's ABD and a posterior splint with U stirrup was then applied. Patient was awakened from anesthesia without difficulty and taken to the recovery room in stable condition. There were no specimens or complications. Counts were correct. Blood loss was 15 cc. At the conclusion operation spoke patient's family informed of my findings. Detailed postoperative instructions were given. She will be admitted to the hospital. Nonweightbearing. long-term facility. Medicine consult. Start Plavix in the morning and Lovenox tonight. Nonweightbearing for a period of 4-6 weeks. I attest to the content of the Intraoperative Record and any orders documented therein. Any exceptions are noted below.
[2018-11-11] MEDS ORDERED: DiphenhydrAMINE HCL 50 MG/ML VIAL IV PRN (11:19)
[2018-11-11] MEDS ORDERED: HYDROmorphone INJ 0.5 MG/0.5 ML SYR IV PRN (11:19)
[2018-11-11] MEDS ORDERED: METOCLOPRAMIDE HCL INJ 5 MG/ML 2 ML VIAL IV PRN (11:19)
[2018-11-11] MEDS ORDERED: CONSULT PHARMACY PRN (11:19)
[2018-11-11] MEDS ORDERED: BISACODYL 10 MG SUPP PR PRN (11:19)
[2018-11-11] MEDS ORDERED: MAGNESIUM HYDROXIDE SUSP 30 ML UDC PO PRN (11:19)
[2018-11-11] MEDS ORDERED: ONDANSETRON INJ 2 MG/ML 2 ML VIAL IV PRN (11:19)
[2018-11-11] MEDS ORDERED: NALOXONE HCL 0.4 MG/1 ML VIAL/CARP IV PRN (11:19)
[2018-11-11] MEDS ORDERED: FLUTICASONE PROPIONATE NA SPR 16 GM BTL NAE PRN (12:00)
[2018-11-11 12:18] LABS: Hematocrit (blood only) 31.6 % (37-47); Hemoglobin 9.7 g/dL (12.0-16.0); Mean Corpuscular Hgb Conc 30.7 g/dL (32-36); Mean Corpuscular Volume 84.7 fL (80-100); Mean Platelet Volume 8.7 fL (7.4-10.4); Platelet Count 322 K/uL (130-400); RDW Coefficient of Variation 14.4 % (11.5-14.5); RDW Standard Deviation 44.7 fL (36.4-46.3); Red Blood Count 3.73 M/uL (4.2-5.4); White Blood Count 7.21 K/uL (4.8-10.8)
[2018-11-11 12:29] LABS: Prothrombin Time 10.6 Seconds (9.0-12.0)
[2018-11-11 12:34] LABS: Creatinine Clr Calc Pharmacy 78.9 ml/min; Est GFR (African American) 102.8; Est GFR (Non-African American) 88.7
[2018-11-11] MEDS: TRAMADOL HCL 50 MG TABLET PO PRN ×2 (14:47→22:50)
[2018-11-11] MEDS: CEFAZOLIN 1000MG 1,000 MG/7.5 ML SYR IV SCH ×2 (14:48→22:51)
[2018-11-11] MEDS: ACETAMINOPHEN 500 MG TAB PO SCH ×2 (14:48→21:44)
--- NOTE | 2018-11-11 16:16 | Orthopedic Progress Note ---
Date of Service November 11, 2018 Assessment & Plan (1) Closed fracture of right distal fibula: POD 0 - s/P ORIF right tib/fib fracture Doing well, has been out of bed to the bathroom NWB RLE - use walker to assist with ambulation Ice and elevate right ankle as needed for pain/swelling Keep dressings/splint on right leg at all times Allowed for range of motion right knee and right hip Hospitalist for post op medical management - appreciate assistance. Case management for disposition - SNF recommended Regular diet as ordered Start Lovenox this evening for DVT prophylaxis. Resume Plavix in AM Will discuss findings with Dr. Sherman Will re-eval in AM. Please call with any questions. Present on Admission?: Yes (2) Closed fracture of right distal tibia: Please see above Present on Admission?: Yes Subjective Patient resting in bed, complaining of a headache, low back pain and right ankle pain. She states the headache and back pain is nothing out of the ordinary for her. She has chronic headaches and low back pain. Right ankle block she states has seems to have worn off, she's getting more pain, but tolerable with recent Tylenol and tramadol. Denies chest pain, shortness of breath, nausea or vomiting. Tolerated lunch today. at bedside. Physical Exam Vital Signs (Past 24 Hours): Last Vital Signs Temp 37.4 C 11/11/18 15:36 Pulse 81 11/11/18 15:36 Resp 17 11/11/18 15:36 BP 130/73 11/11/18 15:36 Pulse Ox 97 11/11/18 15:36 Physical Exam: Right ankle splint intact, ice in place. Elevate right foot on pillow. Unable to wiggle toes, decreased sensation of all toes now, cap refill brisk, toes warm. Unable to dorsiflex toes, passively able to move all toes without pain. Tolerates ROM right knee and hip. No effusion right knee, able to lift right leg off bed.
[2018-11-11] MEDS: SODIUM CHLORIDE 0.9% 1000ML 1,000 ML IV SCH ×2 (18:06)
--- NOTE | 2018-11-11 19:57 | Consultation ---
Date of Consultation November 11, 2018 Assessment & Plan (1) Closed fracture of right distal tibia: As per ortho Pre-op Hb 10.4 (2) Closed fracture of right distal fibula: As per ortho Pre-op Hb 10.4 (3) Stroke: Recent event Resume plavix as soon as permissible by ortho (4) Depression: continue home meds (5) Anxiety: continue home meds (6) High cholesterol: continue home meds (7) Hypertension: continue home meds (8) Acid reflux: continue home meds (9) DVT prophylaxis: As per ortho History of Present Illness Attending Physician: Link Sherman MD History of Present Illness 73 y/o F who was admitted on 11/11 s/p R distal tib/fib repair with Dr. Sherman. Pt is doing well post-op. Tolerating PO without issue. Pt denies fever, SOB, chest pain, abd pain, n/v/c/d, LE swelling. Pt had a stroke 09/17/18. She states she has had some short term memory issues and some decreased use of her L hand as ongoing deficits from this event. Allergies Allergy/AdvReac Type Severity Reaction Status Date / Time adhesive Allergy Unknown RASH AND Verified 11/11/18 05:37 SORE No Known Drug Allergies Allergy Unknown . Verified 11/11/18 05:37 smoke AdvReac Unknown Uncoded 11/07/18 12:19 Home Medications Home Medications Medication Instructions Recorded Confirmed Type Amitiza 24 mcg PO BID 09/17/18 11/11/18 History duloxetine [Cymbalta] 20 mg PO BID 09/17/18 11/11/18 History escitalopram oxalate [Lexapro] 10 mg PO DAILY 09/17/18 11/11/18 History fluticasone propionate [Flonase 1 spray INTRANASAL UD PRN 09/17/18 11/11/18 History Allergy Relief] hydrocodone-acetaminophen [[place]] 1 - 2 tab PO Q4 PRN 09/17/18 11/11/18 History zolpidem [Ambien] 5 mg PO HS 09/17/18 11/11/18 History clopidogrel 75 mg PO QAM #30 tab 09/18/18 11/11/18 Rx atorvastatin 80 mg PO DAILY #30 tab 09/21/18 11/11/18 Rx pantoprazole 40 mg PO DAILY #30 tab 09/21/18 11/11/18 Rx potassium chloride [Klor-Con M20] 20 meq PO BID #60 tab 09/21/18 11/11/18 Rx lisinopril [Prinivil] 5 mg PO DAILY 11/02/18 11/11/18 History acetaminophen [Tylenol Extra 500 mg PO TID PRN 11/06/18 11/11/18 History Strength] Patient History Medical History Aphasia (Acute) H/O FROM STROKE 09/2018. Stroke SEPTEMBER 17, 2018. TREATED AT [facility]. FOLLOWED WITH DR HOLT. SHORT TERM MEMORY DIFFICULTIES. Stroke-like symptoms (Acute) 09/2018 Depression Anxiety High cholesterol (Chronic) Hypertension (Chronic) Acid reflux (Chronic) Breast cancer 1999. RIGHT LUMPECTOMY. Chronic back pain (Chronic) Degenerative disc disease Deviated septum Fusion of spine LUMBAR On anticoagulant therapy Osteoarthritis Peptic ulcer disease H/O BLEEDING ULCERS Transient ischemic attack (TIA) H/O. LAST EPISODE WAS OCTOBER 2017 Surgical History H/O: hysterectomy History of arthroscopy BILATERAL KNEE ARTHROSCOPY History of carpal tunnel release BILATERAL History of cataract surgery BILATERAL History of colonoscopy History of discectomy LUMBAR History of esophagogastroduodenoscopy (EGD) Hx of lumpectomy RIGHT History of back surgery (7 TOTAL) Family History Brother Stroke Mother Coronary heart disease [place] Social History Preferred Language: Indonesian Communication Ability: Effective Survey Worker Required: No Beliefs That Will Affect Care: None marital status: Current Living Situation: Spouse Other Information That Helps Us Care for You: No Feels Safe at Home: Yes Safety Concerns: Feels Safe At This Time Smoking Status: Never smoker Hx Alcohol Use: No Hx Substance Use: No Review of Systems Pertinent positives and negatives reviewed in HPI--all others negative Physical Exam Vital Signs (Past 24 Hours): Last Vital Signs Temp 37.4 C 11/11/18 15:36 Pulse 81 11/11/18 15:36 Resp 17 11/11/18 15:36 BP 130/73 11/11/18 15:36 Pulse Ox 97 11/11/18 15:36 Constitutional: WD/WN, vitals as above Eyes: normal visual hanson by confrontation and + anicteric sclerae Neck: normal visual inspection and trachea midline Respiratory: normal respiratory effort, lungs clear to auscultation Cardiovascular: Rate/Rhythm: regular rate and regular rhythm Gastrointestinal (Abdomen): Inspection/Auscultation: abdomen not distended Percussion/Palpation: abdomen soft; abdomen nontender Musculoskeletal: Head/Neck/Chest: normocephalic and head atraumatic negative for edema, peripheral pulses intact Inability to make a closed fist with L hand but with mobility of individual digits Skin: no rashes, warm and dry Neurologic: awake; not confused Speech / Cognition: normal speech Psychiatric: A+Ox3, euthymic affect (1) Stroke CVA mechanism: thrombosis Precerebral and cerebral artery: unspecified cerebral artery Qualified Code(s): I63.30 - Cerebral infarction due to thrombosis of unspecified cerebral artery (2) Hypertension Hypertension type: essential hypertension Qualified Code(s): I10 - Essential (primary) hypertension
[2018-11-11] MEDS: ENOXAPARIN INJ 40 MG/0.4 ML SYR SQ SCH (21:43)
[2018-11-11] MEDS: SENNA 8.6 MG TAB PO SCH (21:45)
[2018-11-11] MEDS: LUBIPROSTONE 8 MCG CAP PO SCH (21:45)
[2018-11-11] MEDS: DULOXETINE HCL 20 MG CAP PO SCH (21:45)
[2018-11-11] MEDS: POTASSIUM CHLORIDE 20 MEQ TABCR PO SCH (21:47)
[2018-11-11] MEDS: DOCUSATE SODIUM 100 MG CAP PO SCH (21:47)
[2018-11-12] MEDS: OXYCODONE HCL IR 5 MG TAB (IMMEDIATE RELEASE) PO PRN ×3 (00:27→22:33)
[2018-11-12] MEDS: ACETAMINOPHEN 500 MG TAB PO SCH ×3 (05:41→22:33)
[2018-11-12 07:24] LABS: Hematocrit (blood only) 30.2 % (37-47); Hemoglobin 9.3 g/dL (12.0-16.0); Mean Corpuscular Hgb Conc 30.8 g/dL (32-36); Mean Corpuscular Volume 85.1 fL (80-100); Platelet Count 310 K/uL (130-400); RDW Coefficient of Variation 14.4 % (11.5-14.5); RDW Standard Deviation 45.4 fL (36.4-46.3); Red Blood Count 3.55 M/uL (4.2-5.4); White Blood Count 9.09 K/uL (4.8-10.8)
[2018-11-12 07:46] LABS: BUN Creatinine Ratio 14.8 (10-20); Calcium 8.6 mg/dl (8.5-10.1); Creatinine Clr Calc Pharmacy 85.5 ml/min; Est GFR (African American) 105.5; Est GFR (Non-African American) 91.1; Potassium 3.5 mmol/L (3.5-5.1)
[2018-11-12] MEDS: POTASSIUM CHLORIDE 20 MEQ TABCR PO SCH ×2 (07:50→20:17)
[2018-11-12] MEDS: MULTIVITAMIN TAB PO SCH (07:50)
[2018-11-12] MEDS: LISINOPRIL 5 MG TAB PO SCH (07:50)
[2018-11-12] MEDS: PANTOprazole 40 MG TAB PO SCH (07:51)
[2018-11-12] MEDS: DULOXETINE HCL 20 MG CAP PO SCH ×2 (07:51→20:17)
[2018-11-12] MEDS: CLOPIDOGREL BISULFATE 75 MG TAB PO SCH (07:51)
[2018-11-12] MEDS: ATORVASTATIN 40 MG TAB PO SCH (07:51)
[2018-11-12] MEDS: LUBIPROSTONE 8 MCG CAP PO SCH ×2 (07:52→20:17)
[2018-11-12] MEDS: DOCUSATE SODIUM 100 MG CAP PO SCH ×2 (07:52→20:17)
[2018-11-12 08:16] LABS: Vitamin D, 25 Hydrox 22.2 ng/ml (30-100)
--- NOTE | 2018-11-12 08:29 | Anesthesiology Progress Note ---
Date of Service November 12, 2018 Anesthesia Post Procedure Vital Signs Vital Signs: Temp Pulse Pulse Resp BP Pulse Ox 11/12/18 06:58 36.8 C 89 16 128/78 99 11/12/18 04:00 37.2 C 98 H 16 118/74 94 11/11/18 23:11 37.0 C 98 H 17 134/75 91 11/11/18 15:36 37.4 C 81 17 130/73 97 11/11/18 14:20 92 H 18 150/76 H 99 11/11/18 13:05 89 16 122/73 95 11/11/18 12:11 74 16 127/70 96 11/11/18 11:34 75 16 137/77 96 11/11/18 11:05 36.5 C 84 15 131/77 95 11/11/18 10:50 79 14 141/80 H 100 11/11/18 10:35 36.2 C L 80 15 137/74 97 11/11/18 10:25 82 16 144/76 H 100 11/11/18 10:15 80 15 135/74 99 11/11/18 10:05 84 23 135/74 99 11/11/18 09:57 36.2 C L 83 17 131/69 100 Pain Intensity Back: Pain Intensity: 7 Right Lower Leg: Pain Intensity: 8 Notes Mental Status: alert / awake / arousable and participated in evaluation Patient Amnestic to Procedure: Yes Nausea / Vomiting: adequately controlled Pain: adequately controlled Airway Patency, RR, SpO2: stable & adequate BP & HR: stable & adequate Hydration State: stable & adequate Neuraxial Anesthesia: sensory block resolved Anesthetic Complications: Pt Satisfied with anesthetic care
[2018-11-12 08:55] LABS: Act87 Hepatitis C IgG Screen Neg (Neg)
[2018-11-12] MEDS ORDERED: BISACODYL 5 MG TABEC PO ONE (09:30)
[2018-11-12] MEDS: POLYETHYLENE (MIRALAX) 17 GM PACK PO SCH (10:32)
[2018-11-12] MEDS: ESCITALOPRAM OXALATE 10 MG TAB PO SCH (10:32)
[2018-11-12] MEDS ORDERED: ERGOCALCIFEROL 50,000 UNITS CAP PO SCH (11:15)
--- NOTE | 2018-11-12 11:16 | Progress Note ---
DATE: 11/12/2018 Sitting in a chair. Had some pain in the ankle last evening after the block wore off. Things are now well controlled. Difficulty sleeping. Her sleeping medicine was held and we can go ahead and restart that today. No issues with breathing, orientation, chest pain, weakness. She is afebrile. Her vital signs are noted. Her labs are reviewed and noted. Vitamin D is 22. Replacement will be given. There is 1+ edema of her foot. Her toes are warm with capillary refill less than 2 seconds. She has 5-/5 toe plantar flexion and dorsiflexion. Her splint is loosened and rewrapped. IMPRESSION: Status post stroke. Has vitamin D deficiency and had a nondisplaced right distal fibular fracture and a Tillaux type anterior colliculus fracture with resultant ankle instability status post open reduction internal fixation. PLAN: Replace vitamin D. Nonweightbearing. I recommend care home facility and that is currently underway. Elevation is reinforced. Continue Lovenox and start Plavix. Will restart her sleeping pill. She talked about going to [place] in December. She is certainly welcome to go; however, it is my recommendation that she not do that due to the acute phase of her post-surgical healing.
--- NOTE | 2018-11-12 15:36 | Hospitalist Progress Note ---
Date of Service November 12, 2018 Assessment & Plan (1) Closed fracture of right distal tibia: - S/p ORIF right distal tib/fib on 11/11/18, POD#1. - Pain control per primary team -- required addition of Dilaudid IV overnight. - DVT ppx with Lovenox subQ. - PT/OT ordered - plan for discharge to SNF. (2) Closed fracture of right distal fibula: - Treatment as noted above. (3) Chronic constipation: - H/o IBS-C -- continue home Amitiza, pt. reports no improvement on med over last few months. - Colace 100 mg BID, Sennakot qhs and Miralax scheduled. - Dulcolax 5 mg PO x 1 dose today; MOM prn. (4) Stroke: - Admitted 09/17-09/18 for newly diagnosed right periventricular region CVA. - Continue high dose statin; resumed Plavix post op. (5) Depression: - Continue home Duloxetine and Lexapro. (6) Anxiety: - Continue home meds. (7) High cholesterol: - Continue Atorvastatin 80 mg daily. (8) Hypertension: - Continue Lisinopril 5 mg daily as prescribed. - Monitor for HTN -- goal SBP 140-160 in post stroke period. (9) Acid reflux: - Continue home Protonix. (10) Breast cancer: - History of breast ca, now in remission. (11) Chronic back pain: - H/o 7 back surgeries. - Follows with pain management -- prescribe her narcotics. - Pain management per ortho team. (12) Iron deficiency anemia: - Fe Sat and Ferritin were low during last admission. - Hgb is trending down post op, likely related to intraop bleeding. - Will need outpatient GI work up following resolution of acute issues. (13) Polypharmacy: - Was instructed to taper off some medications recently due to polyph armacy, concern for memory issues. - Pt. has not successfully tapered off meds. - Will hold Ambien at this time due to addition of IV narcotics for pain control. (14) Vitamin D deficiency: - Vit D level was 22. - Will start Vit D 1,000 units daily. (15) DVT prophylaxis: As per ortho Supervising Physician Co-Signing Physician Notes Attending Attestation - Chart reviewed in detail, care plan d/w SUAD Vásquez. I agree w/ the friedman components of her documentation. POD #1 s/p ORIF of right tib-fracture. Bowel regimen due to constipation. Trend H/H. Agree w/ NOT giving ambien as this may cause confusion. Carl Toscano MD Subjective Genitourinary (Female): no difficulty urinating Review of Systems All systems reviewed & are unremarkable except as noted in HPI & below Pt. complains of pain throughout the night, did not sleep well. Was receiving oral narcotics without relief, had some improvement with IV pain meds. Pain is now improved this morning. Also requested sleeping pill last night but did not receive. She takes Ambien 5 mg qhs at home. Last BM was a few days ago -- has chronic constipation in setting of IBS-C. On Amitiza at home without improvement. Denies chest pain, SOB, N/V, abd pain, loss of appetite. Constitutional: + fatigue and + weakness; no fever, no chills and no anorexia Respiratory: no cough and no dyspnea Cardiovascular: no chest pain, no palpitations and no edema Gastrointestinal: + constipation; no abdominal pain, no nausea and no vomiting Musculoskeletal: + joint pain; no back pain Integumentary: no non-healing lesions Allergy / Immunological: no rash Physical Exam Vital Signs (Past 24 Hours): Last Vital Signs Temp 36.9 C 11/12/18 15:03 Pulse 80 11/12/18 15:03 Resp 17 11/12/18 15:03 BP 124/70 11/12/18 15:03 Pulse Ox 93 11/12/18 15:03 Physical Exam: General: Resting comfortably in no apparent distress; A&OX3 HEENT: NC/AT; PERRLA with EOMI; [place] conjunctiva, MMM. Neck: Supple and nontender Cardiac: RRR w/o murmurs, gallops or rubs; S1 and S2 Lungs: CTA bilaterally; No rhonchi, wheezing, or rales Abdomen: Bowel normoactive X 4; Nontender to palpation Extremities: Warm. No edema present. Dressing in place over right ankle. Neuro: No focal weakness Skin: No rash Results & Data Laboratory Results 11/12/18 11/12/18 11/12/18 Range/Units 06:44 06:44 06:44 WBC 9.09 (4.8-10.8) K/uL RBC 3.55 L (4.2-5.4) M/uL Hgb 9.3 L (12.0-16.0) g/dL Hct 30.2 L (37-47) % MCV 85.1 (80-100) fL MCH 26.2 (25-34) pg MCHC 30.8 L (32-36) g/dL RDW Std Deviation 45.4 (36.4-46.3) fL RDW Coeff of Edouard 14.4 (11.5-14.5) % Plt Count 310 (130-400) K/uL MPV 9.0 (7.4-10.4) fL Sodium 139 (136-145) mmol/L Potassium 3.5 (3.5-5.1) mmol/L Chloride 105 (98-107) mmol/L Carbon Dioxide 29 (21-32) mmol/L Anion Gap 5.0 (3-11) BUN 9 (7-18) mg/dl Creatinine 0.60 (0.6-1.2) mg/dl Est Cr Clr Drug Dosing 85.5 ml/min Est GFR ( Amer) 105.5 Est GFR (Non-Af Amer) 91.1 BUN/Creatinine Ratio 14.8 (10-20) Glucose 107 H (70-99) mg/dl Calcium 8.6 (8.5-10.1) mg/dl 25-OH Vitamin D Total 22.2 L (30-100) ng/ml Hepatitis C Ab Screen Neg (Neg) (1) Hypertension Hypertension type: essential hypertension Qualified Code(s): I10 - Essential (primary) hypertension (2) Stroke CVA mechanism: thrombosis Precerebral and cerebral artery: unspecified cerebral artery Qualified Code(s): I63.30 - Cerebral infarction due to thrombosis of unspecified cerebral artery
[2018-11-12] MEDS: ENOXAPARIN INJ 40 MG/0.4 ML SYR SQ SCH (20:14)
[2018-11-12] MEDS: SENNA 8.6 MG TAB PO SCH (20:17)
[2018-11-12] MEDS: ZOLPIDEM TARTRATE 5 MG TAB PO SCH (22:33)
[2018-11-13] MEDS: ACETAMINOPHEN 500 MG TAB PO SCH ×3 (05:53→22:07)
[2018-11-13 06:58] LABS: Hematocrit (blood only) 29.1 % (37-47); Mean Corpuscular Hgb Conc 30.9 g/dL (32-36); Mean Corpuscular Volume 83.6 fL (80-100); Mean Platelet Volume 8.7 fL (7.4-10.4); Platelet Count 278 K/uL (130-400); RDW Coefficient of Variation 14.4 % (11.5-14.5); RDW Standard Deviation 43.7 fL (36.4-46.3); Red Blood Count 3.48 M/uL (4.2-5.4); White Blood Count 7.65 K/uL (4.8-10.8)
[2018-11-13 07:36] LABS: BUN Creatinine Ratio 17.1 (10-20); Calcium 8.6 mg/dl (8.5-10.1); Creatinine Clr Calc Pharmacy 91.6 ml/min; Est GFR (Non-African American) 93.2; Potassium 3.6 mmol/L (3.5-5.1)
[2018-11-13] MEDS: POLYETHYLENE (MIRALAX) 17 GM PACK PO SCH (09:43)
[2018-11-13] MEDS: DOCUSATE SODIUM 100 MG CAP PO SCH ×2 (09:45→20:25)
[2018-11-13] MEDS: LUBIPROSTONE 8 MCG CAP PO SCH ×2 (09:58→20:25)
[2018-11-13] MEDS: POTASSIUM CHLORIDE 20 MEQ TABCR PO SCH ×2 (09:58→20:26)
[2018-11-13] MEDS: DULOXETINE HCL 20 MG CAP PO SCH ×2 (09:58→20:25)
[2018-11-13] MEDS: ESCITALOPRAM OXALATE 10 MG TAB PO SCH (09:59)
[2018-11-13] MEDS: ATORVASTATIN 40 MG TAB PO SCH (09:59)
[2018-11-13] MEDS: MULTIVITAMIN TAB PO SCH (09:59)
[2018-11-13] MEDS: CLOPIDOGREL BISULFATE 75 MG TAB PO SCH (10:00)
[2018-11-13] MEDS: PANTOprazole 40 MG TAB PO SCH (10:00)
[2018-11-13] MEDS: CHOLECALCIFEROL 1,000 UNITS TAB PO SCH (10:00)
[2018-11-13] MEDS: LISINOPRIL 5 MG TAB PO SCH (10:00)
[2018-11-13] MEDS: OXYCODONE HCL IR 5 MG TAB (IMMEDIATE RELEASE) PO PRN ×2 (10:08→19:12)
--- NOTE | 2018-11-13 10:11 | Orthopedic Progress Note ---
Date of Service November 13, 2018 Assessment & Plan (1) Status post ORIF of fracture of ankle: Patient was encouraged to keep her leg elevated and wiggle her toes. Awaiting placement at group home facility. But has not become available yet. She will be seen by Dr. Sherman later today. Continue with cold wraps to the ankle for edema control. Follow-up in the office in about 10 days for staple removal. Subjective Patient is seen in her room this morning. is at bedside. She states she is doing better today. She has less pain. She had less disturbances overnight and was able to sleep some. She is still waiting for placement at a group home facility. No other complaints. Physical Exam Vital Signs (Past 24 Hours): Last Vital Signs Temp 37.1 C 11/13/18 07:01 Pulse 93 H 11/13/18 07:01 Resp 17 11/13/18 07:01 BP 126/72 11/13/18 07:01 Pulse Ox 91 11/13/18 07:01 Physical Exam: Splint is intact. Toes appear moderately swollen. Leg is elevated. Intact motor function to the toes. Sensation is intact to the toes by soft touch.
--- NOTE | 2018-11-13 12:21 | Hospitalist Progress Note ---
Date of Service November 13, 2018 Assessment & Plan (1) Closed fracture of right distal tibia: - S/p ORIF right distal tib/fib on 11/11/18, POD#2. - Pain control per primary team. - DVT ppx with Lovenox subQ. - PT/OT ordered - plan for discharge to SNF pending placement. (2) Closed fracture of right distal fibula: - Treatment as noted above. (3) Chronic constipation: - H/o IBS-C -- continue home Amitiza, pt. reports no improvement on med over last few months. - Colace 100 mg BID, Sennakot qhs and Miralax scheduled. - Will give mag citrate today. (4) Stroke: - Admitted 09/17-09/18 for newly diagnosed right periventricular region CVA. - Continue high dose statin; resumed Plavix post op. (5) Depression: - Continue home Duloxetine and Lexapro. (6) Anxiety: - Continue home meds. (7) High cholesterol: - Continue Atorvastatin 80 mg daily. (8) Hypertension: - Continue Lisinopril 5 mg daily as prescribed. - Monitor for HTN -- goal SBP 140-160 in post stroke period. (9) Acid reflux: - Continue home Protonix. (10) Breast cancer: - History of breast cancer, now in remission. (11) Chronic back pain: - H/o 7 back surgeries. - Follows with pain management -- prescribe her narcotics. - Pain management per ortho team. (12) Iron deficiency anemia: - Fe Sat and Ferritin were low during last admission. - Hgb is trending down post op, related to intraop bleeding. - Will need outpatient GI work up following resolution of acute issues. (13) Polypharmacy: - Was instructed to taper off some medications recently due to polypharmacy, concern for memory issues. - Pt. has not successfully tapered off meds. - Will hold Ambien at this time due to addition of IV narcotics for pain control. (14) Vitamin D deficiency: - Vit D level was 22. - Vit D 1,000 units daily. (15) DVT prophylaxis: - Per orthopedics. Dispo: Patient is medically stable, will sign off. Please call with any q uestions. Supervising Physician Co-Signing Physician Notes Attending Attestation - Chart reviewed in detail, care plan d/w SUAD Vásquez. I agree w/ the friedman components of her documentation. POD #2 s/p ORIF of right tib-fracture. Agree w/ additional constipation aids today. Hb stable at 9. Other medical problems stable. Vitals acceptable. Will sign off. Please call with any questions. Carl Toscano MD Subjective Genitourinary (Female): no difficulty urinating Review of Systems All systems reviewed & are unremarkable except as noted in HPI & below Pt. is doing well overall. Denies significant pain in RLE. She has not had a BM since Saturday -- has chronic constipation at home. Did not respond to Dulcolax PO yesterday. Will give mag citrate today -- pt .has responded to this medication in the past. Denies chest pain, SOB, N/V, urinary retention. Constitutional: no fever, no chills, no fatigue and no weakness Respiratory: no cough and no dyspnea Cardiovascular: no chest pain, no palpitations and no edema Gastrointestinal: + constipation; no abdominal pain, no nausea and no vomiting Musculoskeletal: + joint pain Integumentary: no non-healing lesions Allergy / Immunological: no rash Physical Exam Vital Signs (Past 24 Hours): Last Vital Signs Temp 37.1 C 11/13/18 07:01 Pulse 93 H 11/13/18 07:01 Resp 17 11/13/18 07:01 BP 126/72 11/13/18 07:01 Pulse Ox 91 11/13/18 07:01 Physical Exam: General: Resting comfortably in no apparent distress; A&OX3 HEENT: NC/AT; PERRLA with EOMI; [place] conjunctiva, MMM. Neck: Supple and nontender Cardiac: RRR w/o murmurs, gallops or rubs; S1 and S2 Lungs: CTA bilaterally; No rhonchi, wheezing, or rales Abdomen: Bowel normoactive X 4; Nontender to palpation Extremities: Warm. Dressing in place over right ankle with edema. Neuro: No focal weakness Skin: No rash Results & Data Laboratory Results 11/13/18 11/13/18 11/13/18 Range/Units 08:02 06:43 06:43 WBC 7.65 (4.8-10.8) K/uL RBC 3.48 L (4.2-5.4) M/uL Hgb 9.0 L (12.0-16.0) g/dL Hct 29.1 L (37-47) % MCV 83.6 (80-100) fL MCH 25.9 (25-34) pg MCHC 30.9 L (32-36) g/dL RDW Std Deviation 43.7 (36.4-46.3) fL RDW Coeff of Edouard 14.4 (11.5-14.5) % Plt Count 278 (130-400) K/uL MPV 8.7 (7.4-10.4) fL Sodium 137 (136-145) mmol/L Potassium 3.6 (3.5-5.1) mmol/L Chloride 104 (98-107) mmol/L Carbon Dioxide 28 (21-32) mmol/L Anion Gap 5.0 (3-11) BUN 9 (7-18) mg/dl Creatinine 0.56 L (0.6-1.2) mg/dl Est Cr Clr Drug Dosing 91.6 ml/min Est GFR ( Amer) 108.0 Est GFR (Non-Af Amer) 93.2 BUN/Creatinine Ratio 17.1 (10-20) Glucose 109 H (70-99) mg/dl POC Glucose 107 H (70-99) Calcium 8.6 (8.5-10.1) mg/dl Magnesium 2.0 (1.8-2.4) mg/dl (1) Hypertension Hypertension type: essential hypertension Qualified Code(s): I10 - Essential (primary) hypertension (2) Stroke CVA mechanism: thrombosis Precerebral and cerebral artery: unspecified cerebral artery Qualified Code(s): I63.30 - Cerebral infarction due to thrombosis of unspecified cerebral artery
[2018-11-13] MEDS ORDERED: MAGNESIUM CITRATE 296 ML/BTL PO SCH (13:00)
--- NOTE | 2018-11-13 14:43 | Progress Note ---
DATE: 11/13/2018 Slept well. Getting PT and OT. Disposition pending. Afebrile. Vital signs stable. Marcelo Goldsmith saw her this morning. Dressing is changed with scant drainage, nothing active. Mild swelling with 1 x 2 cm blister anteriorly. Some erythema posteriorly, likely related to inflammation, nothing really anterior. PLAN: assisted facility. Nonweightbearing on the left leg for a period of perhaps 4-6 weeks. Continue elevation and icing. We will follow up with her tomorrow. Still having difficulty with mobility and weakness. No stroke symptoms. Pain control was an issue for her.
[2018-11-13] MEDS ORDERED: LACTULOSE SYRUP 20 GM/30 ML UDC PO SCH (17:30)
[2018-11-13] MEDS ORDERED: LACTULOSE SYRUP 30 GM/45 ML UDP PO ONE (17:51)
[2018-11-13] MEDS: ENOXAPARIN INJ 40 MG/0.4 ML SYR SQ SCH (20:21)
[2018-11-13] MEDS: SENNA 8.6 MG TAB PO SCH (20:25)
[2018-11-13] MEDS ORDERED: LACTULOSE SYRUP 30 GM/45 ML UDP PO SCH ×2 (21:00)
[2018-11-13] MEDS: ZOLPIDEM TARTRATE 5 MG TAB PO SCH (22:08)
[2018-11-14] MEDS: ACETAMINOPHEN 500 MG TAB PO SCH ×2 (06:06→14:01)
[2018-11-14 06:54] LABS: Hematocrit (blood only) 28.4 % (37-47); Hemoglobin 8.9 g/dL (12.0-16.0); Mean Corpuscular Hgb Conc 31.3 g/dL (32-36); Mean Corpuscular Volume 83.3 fL (80-100); Mean Platelet Volume 8.9 fL (7.4-10.4); Platelet Count 299 K/uL (130-400); RDW Coefficient of Variation 14.3 % (11.5-14.5); RDW Standard Deviation 43.5 fL (36.4-46.3); Red Blood Count 3.41 M/uL (4.2-5.4); White Blood Count 6.06 K/uL (4.8-10.8)
[2018-11-14] MEDS ORDERED: LACTULOSE SYRUP 30 GM/45 ML UDP PO PRN (07:46)
[2018-11-14] MEDS: LISINOPRIL 5 MG TAB PO SCH (09:29)
[2018-11-14] MEDS: DULOXETINE HCL 20 MG CAP PO SCH (09:30)
[2018-11-14] MEDS: LUBIPROSTONE 8 MCG CAP PO SCH (09:30)
[2018-11-14] MEDS: POTASSIUM CHLORIDE 20 MEQ TABCR PO SCH (09:30)
[2018-11-14] MEDS: ATORVASTATIN 40 MG TAB PO SCH (09:31)
[2018-11-14] MEDS: CLOPIDOGREL BISULFATE 75 MG TAB PO SCH (09:31)
[2018-11-14] MEDS: CHOLECALCIFEROL 1,000 UNITS TAB PO SCH (09:31)
[2018-11-14] MEDS: MULTIVITAMIN TAB PO SCH (09:31)
[2018-11-14] MEDS: DOCUSATE SODIUM 100 MG CAP PO SCH (09:31)
[2018-11-14] MEDS: PANTOprazole 40 MG TAB PO SCH (09:31)
[2018-11-14] MEDS: ESCITALOPRAM OXALATE 10 MG TAB PO SCH (09:31)
[2018-11-14] MEDS: POLYETHYLENE (MIRALAX) 17 GM PACK PO SCH (09:32)
--- NOTE | 2018-11-14 09:59 | Orthopedic Progress Note ---
Date of Service November 14, 2018 Assessment & Plan (1) Status post ORIF of fracture of ankle: Hgb 8.9. Asymptomatic. Not requiring blood tranfusion but will plan on repeat CBC with diff on Saturday11-14-18. Patient was encouraged to keep her leg elevated and wiggle her toes. Ice prn. Continue NWBing RLE. Continue R knee and hip motion to prevent stiffness. Continue PT/OT. Continue DVT prophylaxis with lovenox 40mg SQ x 4-6wks per Dr Sherman and fabien polanco LLE. Awaiting patient and decision regarding discharge to SNF vs home with home health PT/nursing. Once decision made, plan to DC later today. Dr Sherman aware of above and in agreement. Follow-up in the office scheduled with Dr Sherman on 11-26-18. Subjective Patient is seen in her room this morning. is at bedside. consulting property manager speaking to patient about SNF options vs home health. Patient overall is doing better and is ready for discharge. Pain is controlled. Does note some increased swelling in her toes. Denies f/c/s/sob/cp. Physical Exam Vital Signs (Past 24 Hours): Last Vital Signs Temp 37.4 C 11/14/18 07:45 Pulse 90 11/14/18 07:45 Resp 16 11/14/18 07:45 BP 127/75 11/14/18 07:45 Pulse Ox 95 11/14/18 07:45 Physical Exam: Laying in bed. Right LE splint donned appropriately. Able to wiggle toes. Brisk Capillary refill. Sensation intact. Some swelling in toes noted. Left LE fabien hose donned. NV intact with no pitting edema. Results & Data Laboratory Results 11/14/18 11/13/18 Range/Units 06:29 08:02 WBC 6.06 (4.8-10.8) K/uL RBC 3.41 L (4.2-5.4) M/uL Hgb 8.9 L (12.0-16.0) g/dL Hct 28.4 L (37-47) % MCV 83.3 (80-100) fL MCH 26.1 (25-34) pg MCHC 31.3 L (32-36) g/dL RDW Std Deviation 43.5 (36.4-46.3) fL RDW Coeff of Edouard 14.3 (11.5-14.5) % Plt Count 299 (130-400) K/uL MPV 8.9 (7.4-10.4) fL POC Glucose 107 H (70-99)
[2018-11-14] MEDS: TRAMADOL HCL 50 MG TABLET PO PRN (13:50)
--- NOTE | 2018-11-25 03:43 | Discharge Summary ---
ADMISSION DIAGNOSIS: Right distal fibular fracture and right distal tibial Tillaux type fracture. PROCEDURE: Open reduction internal fixation of right distal tibia and fibula fracture. ATTENDING PHYSICIAN AND SURGEON: Link Sherman MD BRIEF HISTORY: The patient is a 73-year-old female who is status post a fall at home resulting in the aforementioned injuries. She has had a history of stroke which has potentially contributed to her fall. She also has chronic back problems. She was seen and evaluated as an outpatient, diagnosed with the aforementioned fracture. Surgery was delayed about a week to allow swelling to subside. Her leg was inspected before surgery. She was seen and evaluated by her medical doctor. HOSPITAL COURSE: She was admitted to the hospital after surgery consisting of ORIF. Medicine was consulted. She was placed on blood thinners for DVT prophylaxis. The patient's did not feel he was able to take care of her at home. Recommendation was for a chcf facility or acute care rehabilitation. Given that she was nonweightbearing, we felt that her ability to do acute care rehab may have been limited and therefore she attempted to get chcf. She did well throughout her hospital stay. No major issues. Wound healed well. Pain was well controlled. She did PT and OT. FDC was denied and patient eventually decided to go home with her with home health PT and nursing services. The patient is to follow up with me as scheduled. She will be on Lovenox and have platelets checked on a weekly basis. She will continue her pain medications and her regular meds. She is nonweightbearing and is to elevate and ice the leg and keep her splint on, clean and dry. If there are any problems with infection, fevers, swelling, bleeding or any other problems or questions, they are to contact my office or go to the Emergency Room.
== END 2018-11-14 16:25 | disposition home health service (06) | DRG 493 ==
LOC: ASU 05:02 → 3E 10:09
DX: Z79.02 Long term (current) use of antithrombotics/antiplatelets; M19.90 Unspecified osteoarthritis, unspecified site; Z91.81 History of falling; W01.0XXA Fall on same level from slipping, tripping and stumbling without subsequent striking against object, initial encounter; Z79.899 Other long term (current) drug therapy; M54.5 Low back pain; F01.51 Vascular dementia, unspecified severity, with behavioral disturbance; Y92.009 Unspecified place in unspecified non-institutional (private) residence as the place of occurrence of the external cause; S82.841A Displaced bimalleolar fracture of right lower leg, initial encounter for closed fracture; K21.9 Gastro-esophageal reflux disease without esophagitis; F32.9 Major depressive disorder, single episode, unspecified; Z91.048 Other nonmedicinal substance allergy status; R51 Headache; K58.1 Irritable bowel syndrome with constipation; E78.00 Pure hypercholesterolemia, unspecified; I69.311 Memory deficit following cerebral infarction; Z91.14 Patient's other noncompliance with medication regimen; D50.9 Iron deficiency anemia, unspecified; G89.29 Other chronic pain; F41.9 Anxiety disorder, unspecified; E55.9 Vitamin D deficiency, unspecified; I10 Essential (primary) hypertension

== ENCOUNTER 2019-04-07 02:29 | Inpatient (IN) ==
[2019-04-07] MEDS: HYDROmorphone INJ 0.5 MG/0.5 ML SYR IV PRN ×2 (02:48→04:30)
[2019-04-07 02:52] LABS: Basophils # (auto) 0.02 K/uL (0-0.2); Basophils % (auto) 0.2 %; Eosinophils # (auto) 0.17 K/uL (0-0.5); Eosinophils % (auto) 1.8 %; Hematocrit (blood only) 32.8 % (37-47); Hemoglobin 10.3 g/dL (12.0-16.0); Immature Granulocytes # (auto) 0.05 K/uL (0.00-0.02); Immature Granulocytes % (auto) 0.5 %; Lymphocytes # (auto) 2.37 K/uL (1.2-3.4); Mean Corpuscular Hgb Conc 31.4 g/dL (32-36); Mean Corpuscular Volume 82.4 fL (80-100); Mean Platelet Volume 8.9 fL (7.4-10.4); Monocytes # (auto) 0.66 K/uL (0.11-0.59); Neutrophils % (auto) 65.5 %; Platelet Count 258 K/uL (130-400); RDW Coefficient of Variation 17.1 % (11.5-14.5); RDW Standard Deviation 51.8 fL (36.4-46.3); Red Blood Count 3.98 M/uL (4.2-5.4); White Blood Count 9.47 K/uL (4.8-10.8)
[2019-04-07 03:11] LABS: BUN Creatinine Ratio 21.1 (10-20); Calcium 8.6 mg/dl (8.5-10.1); Creatinine Clr Calc Pharmacy 72.3 ml/min; Est GFR (African American) 98.6; Est GFR (Non-African American) 85.1; Potassium 3.6 mmol/L (3.5-5.1)
[2019-04-07 04:01] LABS: Appearance Urine Clear (Clear); Bilirubin Urine Negative (Negative); Blood Urine Negative (Negative); Color Urine Yellow; Glucose Urine UA Negative (Negative); Ketones Urine Negative (Negative); Leukocyte Esterase Urine Negative (Negative); Nitrite Urine Negative (Negative); Protein Urine Negative (Negative); Specific Gravity Urine 1.017 (1.000-1.030); Urobilinogen Urine Negative (Negative); pH Urine 6.5 (4.5-7.5)
[2019-04-07 04:09] LABS: Prothrombin Time 10.4 Seconds (9.0-12.0)
--- NOTE | 2019-04-07 04:55 | History & Physical Report ---
Date of Service April 07, 2019 Assessment & Plan (1) Chronic back pain: (2) Chronic constipation: (3) Stroke: (4) Status post ORIF of fracture of ankle: (5) Depression: (6) Anxiety: (7) High cholesterol: (8) Hypertension: (9) Acid reflux: (10) Breast cancer: (11) Other fracture of head and neck of right femur, initial encounter for closed fracture: 73-year-old female with history of CVA in September 2018 (right periventricular region), hypertension, hyperlipidemia, GERD, breast cancer status post lumpectomy in 1999 and remission, anxiety, depression, chronic back pain, degenerative disc disease, osteoarthritis presents with right hip pain status post mechanical fall tonight. Concern for impacted right femoral head and neck fracture. Closed Impacted R femoral head/neck Fracture s/p Fall Vitals wnl XR: Impacted R femoral head/neck Fracture Coags wnl EK Sinus 1st degree AV block, ID [id number] Dilaudid 0.5mg Q3H PRN for pain N.p.o. on IV fluids, patient has not had anything to eat after supper Orthopedics consulted ORIF right distal tib/fib on 11/11/18-Closed fracture of right distal tibia Chronic constipation: - Colace 100 mg BID - Miralax 2capfuls not helping - Given significant narcotic pain medication use - Started on Relistor Stroke: - 09/17-09/18 for newly diagnosed right periventricular region CVA. - Continue high dose statin - Hold plavix in preparation for possible surgery, resume post op HLD - Continue Atorvastatin 80 mg daily Hypertension: - Hold AM Lisinopril for potential procedure, resume post op within 48 hours Acid reflux: - Continue home Protonix. Breast cancer: - History of breast cancer, now in remission. chronic back pain: - H/o 7 back surgeries. - Follows with pain management -- on narcotics - hold home pain regimen as pt currently requiring IV pain medication, resume post op Iron deficiency anemia: - Fe Sat and Ferritin were low during previous admission - Hgb now stable at 10.3 (baseline 9-10) - No concern for acute bleed at this time - Monitor CBC Depression / Anxiety: - Continue home Duloxetine and Lexapro Vitamin D deficiency: - Vit D 1,000 units daily FEN/GI: Npo for possible procedure, on IVF 100cc/hr LR DVT prophylaxis: Per orthopedics post op Code: DNR/DNI Dispo: med/surg History of Present Illness Chief Complaint: Right hip pain status post fall Primary Care Provider: Elizabeth Ramirez 73-year-old female with history of CVA in September 2018 (right periventricular region), hypertension, hyperlipidemia, GERD, breast cancer status post lumpectomy in 1999 and remission, anxiety, depression, chronic back pain, degenerative disc disease, osteoarthritis presents with right hip pain status post mechanical fall tonight. Patient reports going to the freezer to get her ice pack for her back at midnight which she usually does and falling after she turned. Denies any lightheadedness or other symptoms at the time. She is not sure if it is due to her weak core strength or her right knee may have also gave out on her as it is not so good. She had difficulty getting up and arrived to help get her into a wheelchair prior to calling EMS. Reports right hip throbbing and constant pain at this time. Pain shoots down leg. Also reports chronic constipation which does not respond to 2 capfuls of MiraLAX every day. Has bowel movements every 4 days. Denies any fever, chills, chest pain, shortness of breath, headache, lightheadedness, nausea, vomiting, abdominal pain, diarrhea, hematochezia, melena, hematuria, dysuria. Did not have anything to eat after supper last night around 7 PM. Allergies Allergy/AdvReac Type Severity Reaction Status Date / Time No Known Drug Allergies Allergy Unknown . Verified 04/07/19 02:51 Home Medications Home Medications Medication Instructions Recorded Confirmed Type duloxetine [Cymbalta] 20 mg PO BID 09/17/18 04/07/19 History escitalopram oxalate [Lexapro] 10 mg PO QAM 09/17/18 04/07/19 History fluticasone propionate [Flonase 1 spray INTRANASAL UD PRN 09/17/18 04/07/19 History Allergy Relief] zolpidem [Ambien] 5 mg PO HS 09/17/18 04/07/19 History clopidogrel 75 mg PO QAM #30 tab 09/18/18 04/07/19 Rx potassium chloride [Klor-Con M20] 20 meq PO BID #60 tab 09/21/18 04/07/19 Rx lisinopril [Prinivil] 5 mg PO QAM 11/02/18 04/07/19 History cholecalciferol (vitamin D3) 1,000 unit PO QAM #30 tab 11/13/18 04/07/19 Rx [Vitamin D3] docusate sodium 100 mg PO BID #60 cap 11/13/18 04/07/19 Rx oxycodone 5 - 10 mg PO Q6H PRN #30 tab 11/13/18 04/07/19 Rx cetirizine-pseudoephedrine 1 tab PO Q12H PRN 12/14/18 04/07/19 History [Zyrtec-D] cyanocobalamin (vitamin B-12) 1,000 mcg PO QAM 12/14/18 04/07/19 History [Vitamin B-12] hydrocodone-acetaminophen [[place]] 1 tab PO Q6H PRN #12 tab 12/14/18 04/07/19 Rx atorvastatin 80 mg PO QAM 03/06/19 04/07/19 History ergocalciferol (vitamin D2) 50,000 unit PO WK 03/06/19 04/07/19 History [Vitamin D2] pantoprazole 40 mg PO QAM 03/06/19 04/07/19 History polyethylene glycol 3350 [Miralax] 17 g PO HS 03/06/19 04/07/19 History Past Med/Surg History Medical History Closed fracture of right distal tibia Aphasia (Acute) H/O FROM STROKE 09/2018. Stroke SEPTEMBER 17, 2018. TREATED AT [facility]. FOLLOWED WITH DR HOLT. SHORT TERM MEMORY DIFFICULTIES, reason for plavix Stroke-like symptoms (Acute) 09/2018 Depression Anxiety High cholesterol (Chronic) Hypertension (Chronic) Acid reflux (Chronic) Breast cancer 1999. RIGHT LUMPECTOMY. Chronic back pain (Chronic) Constipation reason for scheduled colonoscopy Degenerative disc disease Deviated septum On anticoagulant therapy Osteoarthritis Peptic ulcer disease H/O BLEEDING ULCERS Transient ischemic attack (TIA) H/O. LAST EPISODE WAS OCTOBER 2017 Surgical History Status post ORIF of fracture of ankle H/O: hysterectomy History of ankle surgery Fusion of spine LUMBAR History of arthroscopy BILATERAL KNEE ARTHROSCOPY History of back surgery (7 TOTAL) History of carpal tunnel release BILATERAL History of cataract surgery BILATERAL History of colonoscopy History of discectomy LUMBAR x4 History of esophagogastroduodenoscopy (EGD) History of open reduction and internal fixation (ORIF) procedure right ankle fx---hardware in place Hx of lumpectomy RIGHT Family History Brother Stroke Mother Coronary heart disease [place] Other No family history of adverse response to anesthesia Social History Preferred Language: Bermudian Communication Ability: Effective Visual Impairment: No Limitations Senior Oracle Database Administrator Required: No Beliefs That Will Affect Care: None marital status: Current Living Situation: Spouse Other Information That Helps Us Care for You: No Feels Safe at Home: Yes Safety Concerns: Feels Safe At This Time Smoking Status: Never smoker Second Hand Exposure: No ; Hx Alcohol Use: No Hx Substance Use: No Review of Systems Review of Systems: As per HPI Physical Exam Physical Exam: General: In NAD HEENT: dry oral mucosa Neuro: A&O x 4 Pulm: CTAB equal breath sounds bilaterally CV: RRR, no m/r/g Abdomen:+BS, no TTP in all quadrants, non-distended LE: R lateral hip TTP, no ecchymosis, leg is warm to touch, no LE edema, no calf TTP Results & Data Vital Signs (Past 12 Hours) Vital Signs Temp Pulse Pulse Resp BP BP Pulse Ox 04/07/19 03:52 90 16 149/93 H 98 04/07/19 02:31 36.8 C 83 20 181/87 H 92 Laboratory Results Abnormal lab results 04/07/19 04/07/19 Range/Units 02:46 02:46 RBC 3.98 L (4.2-5.4) M/uL Hgb 10.3 L (12.0-16.0) g/dL Hct 32.8 L (37-47) % MCHC 31.4 L (32-36) g/dL RDW Std Deviation 51.8 H (36.4-46.3) fL RDW Coeff of Edouard 17.1 H (11.5-14.5) % Immature Gran # (Auto) 0.05 H (0.00-0.02) K/uL [place] # (Auto) 0.66 H (0.11-0.59) K/uL BUN/Creatinine Ratio 21.1 H (10-20) Glucose 103 H (70-99) mg/dl Medications Administered Current Inpatient Medications Hydromorphone HCl (Dilaudid) 0.5 mg IV Q20M PRN PRN Reason: Severe Pain (Rating 7,8,9,10) Stop: 04/21/19 02:39 Last Admin: 04/07/19 04:30 Dose: 0.5 mg Documented by: Code Status & VTE Plan Code Status DNR/DNI per discussion with patient and VTE Prophylaxis Plan VTE Prophylaxis will be ordered: Yes Supervising Physician Co-Signing Physician Notes Attending addendum: I have physically seen this patient, have supervised the medical residents activities, and agree with the H&P unless as otherwise noted. Assessment and Plan: Impacted closed right femoral head/neck fracture- N.p.o. Acetaminophen 600 mg p.o. every 6 hours as needed. Dilaudid 0.5 mg IV every 3 hours as needed severe pain. IV fluids. Cerebrovascular disease/hypertension- Holding Plavix. Otherwise outpatient medications as noted. Remainder of orders and notations as noted. PG Care Time/CCT Total # of Minutes Spent Total Time Spent with Patient: Total time spent is greater than 50% in coordination of care (as documented) at patient's floor/unit and/or counseling patient: Resident Activity Tracking Resident Involvement: Resident Care Provided Care Provided: Adult Hospital Medicine (1) Hypertension Hypertension type: essential hypertension Qualified Code(s): I10 - Essential (primary) hypertension (2) Stroke CVA mechanism: thrombosis Precerebral and cerebral artery: unspecified cerebral artery Qualified Code(s): I63.30 - Cerebral infarction due to th rombosis of unspecified cerebral artery
[2019-04-07] MEDS ORDERED: ACETAMINOPHEN 325 MG TAB PO PRN (05:32)
[2019-04-07] MEDS ORDERED: HYDROmorphone INJ 0.5 MG/0.5 ML SYR IV PRN ×2 (05:32→19:44)
[2019-04-07] MEDS ORDERED: FLUTICASONE PROPIONATE NA SPR 16 GM BTL PRN (05:32)
--- NOTE | 2019-04-07 06:02 | Emergency Department Note ---
Entered by Scott Luke acting as a scribe for History of Present Illness General Chief complaint: Fall Stated complaint: FALL/HIP PAIN Time Seen by Provider: 04/07/19 02:32 Source: patient and family () History of Present Illness Onset (ago): hour(s) (this morning) Location: right (hip) Pain Consistency: + constant Maximum Pain Intensity: 9 Associated symptoms: + other (Positive for back pain, right leg pain, right foot pain. Negative for LOC, ankle pain, neck pain, and abdominal pain.) The patient is a 73 year old female who presents to the emergency department with complaints of constant right hip following a fall occurring this morning. The patient states that she got up this morning to get an ice pack for her back pain. She notes that she is unstable, and she reports that she fell onto her right hip when she was walking. The patient states that she did not hit her head or lose consciousness. She notes that she is still having back pain and she also complains of right leg and right foot pain. She reports that she is unable to lift her right foot due to her pain. She denies any ankle pain, neck pain, and abdominal pain. The patient states that she has a history of hypertension. Per , the patient also has a previous history of a stroke, previous back surgeries, and a previous right ankle surgery. The patient states that she takes Plavix. Home Medications Home Medications Medication Instructions Recorded Confirmed Type duloxetine [Cymbalta] 20 mg PO BID 09/17/18 04/07/19 History escitalopram oxalate [Lexapro] 10 mg PO QAM 09/17/18 04/07/19 History fluticasone propionate [Flonase 1 spray INTRANASAL UD PRN 09/17/18 04/07/19 History Allergy Relief] zolpidem [Ambien] 5 mg PO HS 09/17/18 04/07/19 History clopidogrel 75 mg PO QAM #30 tab 09/18/18 04/07/19 Rx potassium chloride [Klor-Con M20] 20 meq PO BID #60 tab 09/21/18 04/07/19 Rx lisinopril [Prinivil] 5 mg PO QAM 11/02/18 04/07/19 History cholecalciferol (vitamin D3) 1,000 unit PO QAM #30 tab 11/13/18 04/07/19 Rx [Vitamin D3] docusate sodium 100 mg PO BID #60 cap 11/13/18 04/07/19 Rx oxycodone 5 - 10 mg PO Q6H PRN #30 tab 11/13/18 04/07/19 Rx cetirizine-pseudoephedrine 1 tab PO Q12H PRN 12/14/18 04/07/19 History [Zyrtec-D] cyanocobalamin (vitamin B-12) 1,000 mcg PO QAM 12/14/18 04/07/19 History [Vitamin B-12] hydrocodone-acetaminophen [[place]] 1 tab PO Q6H PRN #12 tab 12/14/18 04/07/19 Rx atorvastatin 80 mg PO QAM 03/06/19 04/07/19 History ergocalciferol (vitamin D2) 50,000 unit PO WK 03/06/19 04/07/19 History [Vitamin D2] pantoprazole 40 mg PO QAM 03/06/19 04/07/19 History polyethylene glycol 3350 [Miralax] 17 g PO HS 03/06/19 04/07/19 History Allergies Allergy/AdvReac Type Severity Reaction Status Date / Time No Known Drug Allergies Allergy Unknown . Verified 04/07/19 02:51 Past Med/Surg History Medical History Closed fracture of right distal tibia Aphasia (Acute) H/O FROM STROKE 09/2018. Stroke SEPTEMBER 17, 2018. TREATED AT [facility]. FOLLOWED WITH DR HOLT. SHORT TERM MEMORY DIFFICULTIES, reason for plavix Stroke-like symptoms (Acute) 09/2018 Depression Anxiety High cholesterol (Chronic) Hypertension (Chronic) Acid reflux (Chronic) Breast cancer 1999. RIGHT LUMPECTOMY. Chronic back pain (Chronic) Constipation reason for scheduled colonoscopy Degenerative disc disease Deviated septum On anticoagulant therapy Osteoarthritis Peptic ulcer disease H/O BLEEDING ULCERS Transient ischemic attack (TIA) H/O. LAST EPISODE WAS OCTOBER 2017 Surgical History Status post ORIF of fracture of ankle H/O: hysterectomy History of ankle surgery Fusion of spine LUMBAR History of arthroscopy BILATERAL KNEE ARTHROSCOPY History of back surgery (7 TOTAL) History of carpal tunnel release BILATERAL History of cataract surgery BILATERAL History of colonoscopy History of discectomy LUMBAR x4 History of esophagogastroduodenoscopy (EGD) History of open reduction and internal fixation (ORIF) procedure right ankle fx---hardware in place Hx of lumpectomy RIGHT Family History Brother Stroke Mother Coronary heart disease [place] Other No family history of adverse response to anesthesia Social History Preferred Language: Singaporean Communication Ability: Effective Visual Impairment: No Limitations 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 and A total of 10 systems reviewed and were otherwise negative Physical Exam Vital Signs Vital Signs - 24 hr 04/07/19 02:31 04/07/19 03:52 Temperature 36.8 C Temperature Source Oral Sepsis Action Taken by Nursing No Action Required Pulse Rate 83 Pulse Rate [Finger] 90 Respiratory Rate 20 16 Respiratory Effort / Characteristics Non-Labored Spontaneous Respiratory Depth Normal Blood Pressure 181/87 H Blood Pressure [Left Arm] 149/93 H Blood Pressure Mean 118 Blood Pressure Mean [Left Arm] 111 Pulse Oximetry 92 98 Oxygen Delivery Method Room Air Nasal Cannula Oxygen Flow Rate 2 HEENT: Head - normocephalic and atraumatic Pupils are equal, round, and reactive to light. Extraocular eye muscles are intact, and sclera are anicteric. Nose - moist nasal mucosa without discharge. Mouth - moist buccal mucosa. Oropharynx is nonerythematous and there is no tonsillar exudate or edema noted. Neck: No pain to palpation over cervical spine. Heart: Regular rate and rhythm. There is a normal S1 and S2 with no murmurs, clicks, or gallops appreciated. Lungs: Clear to auscultation bilaterally with no wheezes, rales, or rhonchi. Abdomen: Soft, completely nontender, nondistended, with good bowel sounds. There are no palpable pulsatile masses or hepatosplenomegaly. There is no guarding, rigidity, or rebound noted. Pelvis: Pain over posterior pelvis and PSIS on the right. Extremities: No evidence of cyanosis, clubbing, or edema. There are easily palpable peripheral pulses. The patient has limited movement to the right hip. There is no obvious shortening to that extremity. Skin: warm and dry with good turgor and no rashes. Course 0233: The patient was evaluated in room A2. A complete history and physical examination were performed. Nursing notes and previous electronic medical records were reviewed. IV lock was established and labs were drawn as above. She had plain x-rays of her pelvis and right hip 0313: I reevaluated and updated the patient and her . 0341: Upon reevaluation, the patient is stable. I discussed the findings and the treatment plan with the patient. She expresses agreement and understanding. The patient will be evaluated by the [facility] Hospitalist group for further management 0348: Hydromorphone HCl 0.5mg IV 0430: Hydromorphone HCl 0.5mg IV Consultations Consultation #1: I reviewed the patient's case with Dr. Deng - resident landfill gas collection system operator for Dr. Tena - Hospitalist, [facility]. They will evaluate the patient for further management. Time: 03:41 Administered Medications Discontinued Medications Hydromorphone HCl (Dilaudid) 0.5 mg IV Q20M PRN PRN Reason: Severe Pain (Rating 7,8,9,10) Stop: 04/21/19 02:39 Last Admin: 04/07/19 04:30 Dose: 0.5 mg Documented by: [id number] Admin: 04/07/19 02:48 Dose: 0.5 mg Documented by: [id number] Medical Decision Making Differential Diagnosis Differential diagnosis includes: hip fracture, pelvis fracture, and lumbar spine fracture. Medical Records Attestation: I reviewed the patient's medical records. Home Medications Current Medication List: was personally reviewed by me Laboratory Data Attestation: I reviewed the patient's lab results. Result diagrams: 04/07/19 02:46 04/07/19 02:46 Lab Results 04/07/19 04/07/19 04/07/19 Range/Units 02:46 02:46 03:45 WBC 9.47 (4.8-10.8) K/uL RBC 3.98 L (4.2-5.4) M/uL Hgb 10.3 L (12.0-16.0) g/dL Hct 32.8 L (37-47) % MCV 82.4 (80-100) fL MCH 25.9 (25-34) pg MCHC 31.4 L (32-36) g/dL RDW Std Deviation 51.8 H (36.4-46.3) fL RDW Coeff of Edouard 17.1 H (11.5-14.5) % Plt Count 258 (130-400) K/uL MPV 8.9 (7.4-10.4) fL Immature Gran % (Auto) 0.5 % Neut % (Auto) 65.5 % Lymph % (Auto) 25.0 % [place] % (Auto) 7.0 % Eos % (Auto) 1.8 % Baso % (Auto) 0.2 % Immature Gran # (Auto) 0.05 H (0.00-0.02) K/uL Neut # (Auto) 6.20 (1.4-6.5) K/uL Lymph # (Auto) 2.37 (1.2-3.4) K/uL [place] # (Auto) 0.66 H (0.11-0.59) K/uL Eos # (Auto) 0.17 (0-0.5) K/uL Baso # (Auto) 0.02 (0-0.2) K/uL PT (9.0-12.0) Seconds INR (0.9-1.1) Sodium 139 (136-145) mmol/L Potassium 3.6 (3.5-5.1) mmol/L Chloride 105 (98-107) mmol/L Carbon Dioxide 30 (21-32) mmol/L Anion Gap 4.0 (3-11) BUN 15 (7-18) mg/dl Creatinine 0.71 (0.6-1.2) mg/dl Est Cr Clr Drug Dosing 72.3 ml/min Est GFR ( Amer) 98.6 Est GFR (Non-Af Amer) 85.1 BUN/Creatinine Ratio 21.1 H (10-20) Glucose 103 H (70-99) mg/dl Calcium 8.6 (8.5-10.1) mg/dl Urine Color Yellow Urine Appearance Clear (Clear) Urine pH 6.5 (4.5-7.5) Ur Specific [place] 1.017 (1.000-1.030) Urine Protein Negative (Negative) Urine Glucose (UA) Negative (Negative) Urine Ketones Negative (Negative) Urine Blood Negative (Negative) Urine Nitrite Negative (Negative) Urine Bilirubin Negative (Negative) Urine Urobilinogen Negative (Negative) Ur Leukocyte Esterase Negative (Negative) 04/07/19 Range/Units 03:46 WBC (4.8-10.8) K/uL RBC (4.2-5.4) M/uL Hgb (12.0-16.0) g/dL Hct (37-47) % MCV (80-100) fL MCH (25-34) pg MCHC (32-36) g/dL RDW Std Deviation (36.4-46.3) fL RDW Coeff of Edouard (11.5-14.5) % Plt Count (130-400) K/uL MPV (7.4-10.4) fL Immature Gran % (Auto) % Neut % (Auto) % Lymph % (Auto) % [place] % (Auto) % Eos % (Auto) % Baso % (Auto) % Immature Gran # (Auto) (0.00-0.02) K/uL Neut # (Auto) (1.4-6.5) K/uL Lymph # (Auto) (1.2-3.4) K/uL [place] # (Auto) (0.11-0.59) K/uL Eos # (Auto) (0-0.5) K/uL Baso # (Auto) (0-0.2) K/uL PT 10.4 (9.0-12.0) Seconds INR 1.0 (0.9-1.1) Sodium (136-145) mmol/L Potassium (3.5-5.1) mmol/L Chloride (98-107) mmol/L Carbon Dioxide (21-32) mmol/L Anion Gap (3-11) BUN (7-18) mg/dl Creatinine (0.6-1.2) mg/dl Est Cr Clr Drug Dosing ml/min Est GFR ( Amer) Est GFR (Non-Af Amer) BUN/Creatinine Ratio (10-20) Glucose (70-99) mg/dl Calcium (8.5-10.1) mg/dl Urine Color Urine Appearance (Clear) Urine pH (4.5-7.5) Ur Specific [place] (1.000-1.030) Urine Protein (Negative) Urine Glucose (UA) (Negative) Urine Ketones (Negative) Urine Blood (Negative) Urine Nitrite (Negative) Urine Bilirubin (Negative) Urine Urobilinogen (Negative) Ur Leukocyte Esterase (Negative) Imaging Data Attestation: I personally reviewed and interpreted this imaging study as follows: My Impression: HIP/PELVIS X-RAY: Right anterior trochanteric hip fracture. Pelvis stable. CHEST X-RAY: Narrow mediastinum. No pulmonary consolidation. Unremarkable chest x-ray. ECG Data Attestation: I personally reviewed and interpreted this ECG as follows: Indication: other (preoperative) Rate (beats per minute): 91 Rhythm: normal sinus Findings: + 1st degree AV block; no ST depression and no ST elevation Blood Pressure Blood Pressure Findings: Elevated blood pressure Blood Pressure Disposition: elevated BP felt to be situational MDM Narrative The patient is a 73 year old female who presents to the emergency department with complaints of constant right hip following a fall occurring this morning. The patient lost her balance and fell to the ground landing on her right hip. She has an obvious right hip fracture at this time. Her pain was managed on IV Dilaudid. She did not hit her head or lose consciousness. She did not injure any other part of her body during this episode. The patient will be evaluated by the [facility] Hospitalist group for further management and they will consult orthopedics. Impression & Plan Closed fracture of right hip, Fall Discharge Plan Visit Data *Final* Discharge Date/Time: 04/07/19 04:59 Chief Complaint: Fall Stated Complaint: FALL/HIP PAIN Other Complaint: Hip Pain ED Provider: Ame Ku Discharge Problem: Closed fracture of right hip, Fall Patient Disposition: Admitted As Inpatient Discharge Instructions Interventions: ED Discharge Assessment Last Done: 04/07/19 04:59 Discharge Problem: Closed fracture of right hip Qualifiers: Encounter type: initial encounter Qualified Code(s): S72.001A - Fracture of unspecified part of neck of right femur, initial encounter for closed fracture Fall Qualifiers: Encounter type: initial encounter Qualified Code(s): W19.XXXA - Unspecified fall, initial encounter The scribe's documentation has been prepared under my direction and personally reviewed by me in its entirety. I confirm that the note above accurately reflects all work, treatment, procedures, and medical decision making performed by me.
[2019-04-07] MEDS: LACTATED RINGER'S 1,000 ML IV SCH ×2 (06:22→19:15)
--- NOTE | 2019-04-07 06:39 | XRay Report ---
XR chest 1V portable CLINICAL HISTORY: Preoperative chest HIP FRACTURE COMPARISON STUDY: 09/19/2018 FINDINGS: The heart is borderline enlarged. There is no failure. There is no focal pulmonary consolid ation. There are no pleural effusions. Surgical clips project over the right breast and axillary hao on.[ IMPRESSION: No active disease in the chest. Electronically signed by: Franc Mims M.D. 04/07/2019 6:38 AM
--- NOTE | 2019-04-07 06:43 | XRay Report ---
XR hip RT 2-3V w pelvis CLINICAL HISTORY: Right hip pain status post trauma COMPARISON: None. DISCUSSION: The bones are osteopenic. There is an acute subcapital right hip fracture. There is no di slocation. Postsurgical changes are suspected within the lower lumbar spine. IMPRESSION: Subcapital right hip fracture Electronically signed by: Franc Mims M.D. 04/07/2019 6:41 AM
[2019-04-07] MEDS ORDERED: ACETAMINOPHEN 500 MG TAB PO PRN ×2 (08:40→09:30)
[2019-04-07] MEDS ORDERED: HYDROmorphone INJ 0.5 MG/0.5 ML SYR IV STA (08:41)
[2019-04-07] MEDS: CHOLECALCIFEROL 1,000 UNITS TAB PO SCH (09:11)
[2019-04-07] MEDS: PANTOprazole 40 MG TAB PO SCH (09:11)
[2019-04-07] MEDS: DULOXETINE HCL 20 MG CAP PO SCH ×2 (09:12→22:36)
[2019-04-07] MEDS: DOCUSATE SODIUM 100 MG CAP PO SCH ×2 (09:12→22:35)
[2019-04-07] MEDS: ESCITALOPRAM OXALATE 10 MG TAB PO SCH (09:12)
[2019-04-07] MEDS: ATORVASTATIN 40 MG TAB PO SCH (09:13)
[2019-04-07] MEDS: CYANOCOBALAMIN 500 MCG TABLET (VITAMIN B-12) PO SCH (09:13)
--- NOTE | 2019-04-07 09:15 | Orthopedic Consultation ---
Date of Consultation April 07, 2019 Assessment & Plan (1) Closed fracture of right hip: We will keep her npo. We did recommend hemiarthroplasty of her right hip today with Dr. Cheney. Procedure was explained including risks and benefits and consent obtained. History of Present Illness Reason for Consultation: Right hip fracture Attending Physician: Connor Luna DO History of Present Illness Magui is a 73 y/o female admitted with a right hip fracture overnight. She states she was walking to get some ice for her back and fell injuring her hip. She denies any hip pain prior to this fall. She does have a h/o SI joint pain, 7 spine operations, and recent ORIF of right ankle fx by Dr. Sherman. Her history was reviewed. She does have some right knee pain. SHe has had 2 knee scopes in the past. Allergies Allergy/AdvReac Type Severity Reaction Status Date / Time No Known Drug Allergies Allergy Unknown . Verified 04/07/19 02:51 Home Medications Home Medications Medication Instructions Recorded Confirmed Type duloxetine [Cymbalta] 20 mg PO BID 09/17/18 04/07/19 History escitalopram oxalate [Lexapro] 10 mg PO QAM 09/17/18 04/07/19 History fluticasone propionate [Flonase 1 spray INTRANASAL UD PRN 09/17/18 04/07/19 History Allergy Relief] zolpidem [Ambien] 5 mg PO HS 09/17/18 04/07/19 History clopidogrel 75 mg PO QAM #30 tab 09/18/18 04/07/19 Rx potassium chloride [Klor-Con M20] 20 meq PO BID #60 tab 09/21/18 04/07/19 Rx lisinopril [Prinivil] 5 mg PO QAM 11/02/18 04/07/19 History cholecalciferol (vitamin D3) 1,000 unit PO QAM #30 tab 11/13/18 04/07/19 Rx [Vitamin D3] docusate sodium 100 mg PO BID #60 cap 11/13/18 04/07/19 Rx oxycodone 5 - 10 mg PO Q6H PRN #30 tab 11/13/18 04/07/19 Rx cetirizine-pseudoephedrine 1 tab PO Q12H PRN 12/14/18 04/07/19 History [Zyrtec-D] cyanocobalamin (vitamin B-12) 1,000 mcg PO QAM 12/14/18 04/07/19 History [Vitamin B-12] hydrocodone-acetaminophen [[place]] 1 tab PO Q6H PRN #12 tab 12/14/18 04/07/19 Rx atorvastatin 80 mg PO QAM 03/06/19 04/07/19 History ergocalciferol (vitamin D2) 50,000 unit PO WK 03/06/19 04/07/19 History [Vitamin D2] pantoprazole 40 mg PO QAM 03/06/19 04/07/19 History polyethylene glycol 3350 [Miralax] 17 g PO HS 03/06/19 04/07/19 History Patient History Medical History Closed fracture of right distal tibia Aphasia (Acute) H/O FROM STROKE 09/2018. Stroke SEPTEMBER 17, 2018. TREATED AT [facility]. FOLLOWED WITH DR HOLT. SHORT TERM MEMORY DIFFICULTIES, reason for plavix Stroke-like symptoms (Acute) 09/2018 Depression Anxiety High cholesterol (Chronic) Hypertension (Chronic) Acid reflux (Chronic) Breast cancer 2000. RIGHT LUMPECTOMY. Chronic back pain (Chronic) Constipation reason for scheduled colonoscopy Degenerative disc disease Deviated septum On anticoagulant therapy Osteoarthritis Peptic ulcer disease H/O BLEEDING ULCERS Transient ischemic attack (TIA) H/O. LAST EPISODE WAS OCTOBER 2017 Surgical History Status post ORIF of fracture of ankle H/O: hysterectomy History of ankle surgery Fusion of spine LUMBAR History of arthroscopy BILATERAL KNEE ARTHROSCOPY History of back surgery (7 TOTAL) History of carpal tunnel release BILATERAL History of cataract surgery BILATERAL History of colonoscopy History of discectomy LUMBAR x4 History of esophagogastroduodenoscopy (EGD) History of open reduction and internal fixation (ORIF) procedure right ankle fx---hardware in place Hx of lumpectomy RIGHT Family History Brother Stroke Mother Coronary heart disease [place] Other No family history of adverse response to anesthesia Social History Preferred Language: Khmer Communication Ability: Effective Visual Impairment: No Limitations 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 NAD. She has good ROM of BUE. No pain or limited motion BUE. No pain with motion of l eft hip. able to DF/PF, NVI. I did not do motion of right hip. She has some bony hypertrophy of medial side of right knee. No ecchymosis of knee or lower leg. NVI. Able to DF/PF Results & Data Vital Signs (Past 12 Hours) Vital Signs Temp Pulse Pulse Resp BP BP Pulse Ox 04/07/19 07:36 37.1 C 103 H 18 137/85 95 04/07/19 05:15 37.1 C 106 H 18 152/79 H 97 04/07/19 04:59 105 H 20 127/89 96 04/07/19 03:52 90 16 149/93 H 98 04/07/19 02:31 36.8 C 83 20 181/87 H 92 Diagnostic Findings xrays show displaced right femoral neck fx PG Care Time/CCT Total # of Minutes Spent Total Time Spent with Patient: Total time spent is greater than 50% in coordination of care (as documented) at patient's floor/unit and/or counseling patient: (1) Closed fracture of right hip Encounter type: initial encounter Qualified Code(s): S72.001A - Fracture of unspecified part of neck of right femur, initial encounter for closed fracture
--- NOTE | 2019-04-07 09:42 | Family Medicine Progress Note ---
Date of Service April 07, 2019 Assessment & Plan (1) Closed fracture of right hip: Pt seen at bedside this AM. States she was doing fine except that her pain was not currently well controlled. Has been having falls since her stroke. S/P recent stay at [facility] for rehab afterwards. Currently denies chest pain, palps, SOB. Denies DON, N/V, abd pain, diarrhea or constipation, swelling in hands or feet. On exam vitals stable, very pleasant lady laying in bed in no acute distress. Clear breath sounds on front, RRR, no murmurs appreciated. Right hip with some tenderness to palpation. No extremity swelling. -Currently NPO -Per ortho note: appears to need hemiarthroplasty today 04/07 -currently on Dilaudid 0.5mg q3h for pain, extra dose given this AM. Also has scheduled Tylenol 1000mg q8h. -will give one dose of 50,000 today and to be done monthly for next 3 months. Then 2000U daily afterwards. -Has DEXA scheduled for Jun 2019 per . -will continue to monitor Supervising Physician Co-Signing Physician Notes I personally examined the patient and verified all friedman points of history and exam, discussed case, and agree with decision making with Dr Andres. Doing okay except for hip pain. Seems to have simply turned from the freezer as the "events" that led to her breaking her hip. Discussed the importance of getting her moving as quickly as possible, discussed that having OR time this afternoon was fantastic in that regard. Discussed the high likelihood of needing rehab after this. Discussed her chronic balance issues and chronic pain issues as well. Vitals noted, in general she awake and alert pleasant no distress. HEENT normocephalic atraumatic mucous membranes moist. Breathing unlabored no accessory muscle use good effort. Skin shows no rashes no pallor or icterus. Neuro shows no focal deficits. Hip fracturepresumed osteoporoticincrease vitamin D (her D was 22 back in the spring), anticipate initiating a bisphosphonate after she had about a month of healing. Appreciate OR this afternoon. PT/OT eval and treat. Anticipate probable need for rehab. Chronic back painI suspect she would probably have a slow but steady benefit from OMT to address the muscles and ligaments surrounding her postop low back anatomy. We discussed this briefly, and after discharge she seems willing to give a trial run of OMT to one of the osteopathic residents in her PCPs system. DVT proph - lovenox Results & Data Vital Signs (Past 12 Hours) Vital Signs Temp Pulse Pulse Resp BP BP Pulse Ox 04/07/19 07:36 37.1 C 103 H 18 137/85 95 04/07/19 05:15 37.1 C 106 H 18 152/79 H 97 04/07/19 04:59 105 H 20 127/89 96 04/07/19 03:52 90 16 149/93 H 98 04/07/19 02:31 36.8 C 83 20 181/87 H 92 PG Care Time/CCT Total # of Minutes Spent Total Time Spent with Patient: Total time spent is greater than 50% in coordination of care (as documented) at patient's floor/unit and/or counseling patient: Resident Activity Tracking Resident Involvement: Resident Care Provided Care Provided: Adult Hospital Medicine (1) Closed fracture of right hip Encounter type: initial encounter Qualified Code(s): S72.001A - Fracture of unspecified part of neck of right femur, initial encounter for closed fracture
[2019-04-07] MEDS ORDERED: ERGOCALCIFEROL 50,000 UNITS CAP PO ONE (11:15)
[2019-04-07] MEDS ORDERED: THROMBIN FOR SOLN 20000 UNIT KIT ONE (12:43)
[2019-04-07] MEDS ORDERED: BACITRACIN INJ 50,000 UNIT VIAL ONE (12:43)
[2019-04-07] MEDS ORDERED: BUPIVACAINE/EPINEPHRINE 0.5% MPF 1:200,000 30 ML VIAL ONE (12:43)
[2019-04-07] MEDS ORDERED: PROPOFOL IV EMULSION 10 MG/ML 20 ML VIAL IV ONE (13:34)
[2019-04-07] MEDS ORDERED: ONDANSETRON INJ 2 MG/ML 2 ML VIAL ONE (13:34)
[2019-04-07] MEDS ORDERED: DEXAMETHASONE SOD INJ 4 MG/ML VIAL ONE (13:34)
[2019-04-07] MEDS ORDERED: LIDOCAINE HCL 2% 2 ML VIAL/AMP(20MG/ML) INFIL ONE (13:34)
[2019-04-07] MEDS ORDERED: ROCURONIUM BROMIDE 10 MG/ML 5 ML VIAL ONE (13:34)
[2019-04-07] MEDS ORDERED: NEOSTIGMINE METHYLSULFATE 5 MG/5 ML SYR ONE (13:37)
[2019-04-07] MEDS ORDERED: ePHEDrine sulfate 50 MG/ML SYR ONE (13:37)
[2019-04-07] MEDS ORDERED: GLYCOPYRROLATE 0.2 MG/ML VIAL ONE (13:37)
[2019-04-07] MEDS ORDERED: PHENYLEPHRINE 100MCG/ML 5ML SYR ONE (13:37)
[2019-04-07] MEDS ORDERED: LARYING-O-JET KIT (LTA) ONE (13:37)
[2019-04-07] MEDS ORDERED: fentaNYL citrate 100 MCG/2 ML VIAL ONE ×2 (13:41→14:50)
[2019-04-07] MEDS ORDERED: MIDAZOLAM HCL 1 MG/ML 2ML VIAL ONE (13:41)
--- NOTE | 2019-04-07 13:52 | Anesthesiology Consultation ---
Date of Service April 07, 2019 Assessment & Plan Chart Review Chart Review: Acceptable Risk for Surgery Consults Requested none History Surgery Operation Date: 04/07/19 14:20 Proposed Procedures p Right Hip Hemiarthroplasty - Cemented - Coleman Cheney MD Height/Weight Height: 5 ft 8 in Weight: 67.132 kg Allergies Allergy/AdvReac Type Severity Reaction Status Date / Time No Known Drug Allergies Allergy Unknown . Verified 04/07/19 02:51 Medications Home Medications Medication Instructions Recorded Confirmed Last Taken duloxetine [Cymbalta] 20 mg PO BID 09/17/18 04/07/19 03/18/19 09:30 escitalopram oxalate [Lexapro] 10 mg PO QAM 09/17/18 04/07/19 03/18/19 09:30 fluticasone propionate [Flonase 1 spray INTRANASAL UD PRN 09/17/18 04/07/19 11/10/18 08:00 Allergy Relief] zolpidem [Ambien] 5 mg PO HS 09/17/18 04/07/19 03/17/19 clopidogrel 75 mg PO QAM #30 tab 09/18/18 04/07/19 03/13/19 potassium chloride [Klor-Con M20] 20 meq PO BID #60 tab 09/21/18 04/07/19 03/17/19 lisinopril [Prinivil] 5 mg PO QAM 11/02/18 04/07/19 03/18/19 09:30 cholecalciferol (vitamin D3) 1,000 unit PO QAM #30 tab 11/13/18 04/07/19 0 03/17/19 [Vitamin D3] docusate sodium 100 mg PO BID #60 cap 11/13/18 04/07/19 Unknown oxycodone 5 - 10 mg PO Q6H PRN #30 tab 11/13/18 04/07/19 Unknown cetirizine-pseudoephedrine 1 tab PO Q12H PRN 12/14/18 04/07/19 03/18/19 09:30 [Zyrtec-D] cyanocobalamin (vitamin B-12) 1,000 mcg PO QAM 12/14/18 04/07/19 03/17/19 [Vitamin B-12] hydrocodone-acetaminophen [[place]] 1 tab PO Q6H PRN #12 tab 12/14/18 04/07/19 03/18/19 11:00 atorvastatin 80 mg PO QAM 03/06/19 04/07/19 03/18/19 09:30 ergocalciferol (vitamin D2) 50,000 unit PO WK 03/06/19 04/07/19 03/14/19 [Vitamin D2] pantoprazole 40 mg PO QAM 03/06/19 04/07/19 03/18/19 09:30 polyethylene glycol 3350 [Miralax] 17 g PO HS 03/06/19 04/07/19 03/16/19 Active Medications Generic Name Dose Route Start Last Admin Trade Name Freq PRN Reason Stop Dose Admin Acetaminophen 1,000 mg 04/07/19 09:30 04/07/19 11:12 Tylenol PO 05/07/19 08:39 1,000 mg Q8H PRN Administration pain/fever Atorvastatin Calcium 80 mg 04/07/19 09:00 04/07/19 09:13 Lipitor PO 05/07/19 08:59 80 mg QAM LIOR Administration Cyanocobalamin 1,000 mcg 04/07/19 09:00 04/07/19 09:13 Vitamin B-12 PO 05/07/19 08:59 1,000 mcg QAM LIOR Administration Docusate Sodium 100 mg 04/07/19 09:00 04/07/19 09:12 Colace PO 05/07/19 08:59 100 mg BID LIOR Administration Duloxetine HCl 20 mg 04/07/19 09:00 04/07/19 09:12 Cymbalta PO 05/07/19 08:59 20 mg BID LIOR Administration Escitalopram Oxalate 10 mg 04/07/19 09:00 04/07/19 09:12 Lexapro Tab PO 05/07/19 08:59 10 mg QAM LIOR Administration Hydromorphone HCl 0.5 mg 04/07/19 05:32 04/07/19 06:24 Dilaudid IV 04/21/19 05:31 0.5 mg Q3H PRN Administration Pain Lactated Ringer's 1,000 mls @ 100 mls/hr 04/07/19 05:32 04/07/19 06:22 Lr IV 05/07/19 05:31 100 mls/hr .Q10H LIOR Administration Miscellaneous 1 ea 04/07/19 08:00 04/07/19 09:03 Order Awaiting Action N/A 05/07/19 07:59 Not Given QS LIOR Pantoprazole Sodium 40 mg 04/07/19 09:00 04/07/19 09:11 Protonix PO 05/07/19 08:59 40 mg QAM LIOR Administration Vitamin D 1,000 units 04/07/19 09:00 04/07/19 09:11 Vitamin D3 PO 05/07/19 08:59 1,000 units QAM LIOR Administration NPO Date Last Intake of Fluids: 04/07/19 Time Last Intake of Fluids: 23:00 Last Intake of Fluids Comment: sips with meds this AM Date Last Intake of Solids: 04/07/19 Time Last Intake of Solids: 23:00 Past Medical History Medical History Closed fracture of right distal tibia Aphasia (Acute) H/O FROM STROKE 09/2018. Stroke SEPTEMBER 17, 2018. TREATED AT [facility]. FOLLOWED WITH DR HOLT. SHORT TERM MEMORY DIFFICULTIES, reason for plavix Stroke-like symptoms (Acute) 09/2018 Depression Anxiety High cholesterol (Chronic) Hypertension (Chronic) Acid reflux (Chronic) Breast cancer 2000. RIGHT LUMPECTOMY. Chronic back pain (Chronic) Constipation reason for scheduled colonoscopy Degenerative disc disease Deviated septum On anticoagulant therapy Osteoarthritis Peptic ulcer disease H/O BLEEDING ULCERS Transient ischemic attack (TIA) H/O. LAST EPISODE WAS OCTOBER 2017 Past Family History Family History Brother Stroke Mother Coronary heart disease [place] Other No family history of adverse response to anesthesia Past Surgical History Surgical History Status post ORIF of fracture of ankle H/O: hysterectomy History of ankle surgery Fusion of spine LUMBAR History of arthroscopy BILATERAL KNEE ARTHROSCOPY History of back surgery (7 TOTAL) History of carpal tunnel release BILATERAL History of cataract surgery BILATERAL History of colonoscopy History of discectomy LUMBAR x4 History of esophagogastroduodenoscopy (EGD) History of open reduction and internal fixation (ORIF) procedure right ankle fx---hardware in place Hx of lumpectomy RIGHT Social History Smoking Status: Never smoker Hx Alcohol Use: No Hx Substance Use: No substance use type: does not use Physical Exam Vital Signs Last Vital Signs Temp 37.3 C 04/07/19 13:27 Pulse 106 H 04/07/19 13:27 Resp 20 04/07/19 13:27 BP 148/86 H 04/07/19 13:27 Pulse Ox 97 04/07/19 13:27 Testing Laboratory Results 04/07/19 02:46 04/07/19 02:46 PT 10.4 Seconds (9.0-12.0) 04/07/19 03:46 INR 1.0 (0.9-1.1) 04/07/19 03:46 Urine Color Yellow 04/07/19 03:45 Urine Appearance Clear (Clear) 04/07/19 03:45 Urine pH 6.5 (4.5-7.5) 04/07/19 03:45 Ur Specific [place] 1.017 (1.000-1.030) 04/07/19 03:45 Urine Protein Negative (Negative) 04/07/19 03:45 Urine Glucose (UA) Negative (Negative) 04/07/19 03:45 Urine Ketones Negative (Negative) 04/07/19 03:45 Urine Nitrite Negative (Negative) 04/07/19 03:45 Ur Leukocyte Esterase Negative (Negative) 04/07/19 03:45 Blood Type A Positive 04/07/19 07:03 Antibody Screen NEGATIVE 04/07/19 07:03
[2019-04-07] MEDS ORDERED: fentaNYL citrate 100 MCG/2 ML VIAL IV PRN (13:57)
[2019-04-07] MEDS ORDERED: METOCLOPRAMIDE HCL INJ 5 MG/ML 2 ML VIAL IV PRN (13:57)
[2019-04-07] MEDS ORDERED: ePHEDrine sulfate 50 MG/ML AMP IV PRN (13:57)
[2019-04-07] MEDS ORDERED: ATROPINE SULFATE 0.1 MG/ML 10ML SYR IV PRN (13:57)
[2019-04-07] MEDS ORDERED: ONDANSETRON INJ 2 MG/ML 2 ML VIAL IV PRN ×2 (13:57→19:44)
[2019-04-07] MEDS ORDERED: HYDROmorphone INJ 1 MG/ML SYRINGE IV PRN (13:57)
[2019-04-07] MEDS ORDERED: PROMETHAZINE HCL 12.5 MG in SODIUM CHLORIDE 0.9% 50 ML IV PRN (13:57)
[2019-04-07] MEDS ORDERED: CEFAZOLIN 2,000 MG/15 ML IV PUSH IV ONE (14:15)
[2019-04-07] MEDS ORDERED: CEFAZOLIN 2000MG 2,000 MG/15 ML SYR IV SCH (14:15)
--- NOTE | 2019-04-07 16:09 | Post Operative Brief Note ---
PG Immediate Post Op with CF Date of Surgery April 07, 2019 Pre & Post Diagnosis Operation Date: 04/07/19 14:20 Pre-Op Diagnosis: Displaced right femoral neck fracture Post-Op Diagnosis: Displaced right femoral neck fracture Procedure Operation Date: 04/07/19 14:20 Actual Procedures p Right Hip Hemiarthroplasty - Cemented(Right) - Coleman Cheney MD Surgeon Coleman Cheney MD Retail Assistant Store Manager Macarena, PAC Estimated Blood Loss 200 Findings Consistent with Post-Op Diagnosis Fluids 1500 cc Specimens Specimen Description: a. Right Femoral Head Anesthesia Type General Disposition Accompanied Patient To Recovery: Yes Disposition: Recovery Room
[2019-04-07 16:26] LABS: Hematocrit (blood only) 30.1 % (37-47); Hemoglobin 9.3 g/dL (12.0-16.0)
--- NOTE | 2019-04-07 16:35 | XRay Report ---
XR hip RT min 2V CLINICAL HISTORY: 73 years-old Female presenting with Post-Operative implant position. TECHNIQUE: Frontal and crosstable lateral views of the right hip were obtained. COMPARISON: 04/07/2019 at 3:03 AM. FINDINGS: There has been interval total right hip arthroplasty for the prior subcapital right femoral neck frac ture. Expected soft tissue emphysema. No malalignment. No periprosthetic fracture. Overlying skin sta ples noted. Visualized portion of the bony pelvis intact. Suspected underlying osteopenia. IMPRESSION: Expected postsurgical appearance status post total right hip arthroplasty. Electronically signed by: Link Ennis M.D. 04/07/2019 4:34 PM
[2019-04-07] MEDS ORDERED: NALOXONE HCL 0.4 MG/1 ML VIAL/CARP ONE (17:47)
--- NOTE | 2019-04-07 18:49 | Anesthesiology Progress Note ---
Date of Service April 07, 2019 Anesthesia Post Procedure Vital Signs Vital Signs: Temp Pulse Pulse Pulse Resp BP BP 04/07/19 18:30 100 H 20 126/71 04/07/19 18:15 101 H 20 117/67 04/07/19 18:00 100 H 20 111/73 04/07/19 17:45 97 H 20 106/63 04/07/19 17:30 36.5 C 92 H 20 106/60 04/07/19 17:15 89 20 109/63 04/07/19 17:05 94 H 20 110/63 04/07/19 16:55 112 H 20 150/83 H 04/07/19 16:45 82 20 116/68 04/07/19 16:35 90 20 121/63 04/07/19 16:25 88 20 123/70 04/07/19 16:15 94 H 18 119/73 04/07/19 16:06 36.3 C L 86 18 108/69 04/07/19 13:27 37.3 C 106 H 20 148/86 H 04/07/19 07:36 37.1 C 103 H 18 137/85 04/07/19 05:15 37.1 C 106 H 18 152/79 H 04/07/19 04:59 105 H 20 127/89 04/07/19 03:52 90 16 149/93 H 04/07/19 02:31 36.8 C 83 20 181/87 H Pulse Ox 04/07/19 18:30 93 04/07/19 18:15 92 04/07/19 18:00 93 04/07/19 17:45 93 04/07/19 17:30 95 04/07/19 17:15 91 04/07/19 17:05 91 04/07/19 16:55 93 04/07/19 16:45 94 04/07/19 16:35 93 04/07/19 16:25 95 04/07/19 16:15 91 04/07/19 16:06 95 04/07/19 13:27 97 04/07/19 07:36 95 04/07/19 05:15 97 04/07/19 04:59 96 04/07/19 03:52 98 04/07/19 02:31 92 Pain Intensity Right Hip: Pain Intensity: 3 Transfer of Care Handoff Completed per policy Notes Mental Status: alert / awake / arousable Patient Amnestic to Procedure: Yes Nausea / Vomiting: adequately controlled Pain: adequately controlled Airway Patency, RR, SpO2: stable & adequate BP & HR: stable & adequate Hydration State: stable & adequate Anesthetic Complications: no major complications apparent
[2019-04-07] MEDS ORDERED: BISACODYL 10 MG SUPP PR PRN (19:44)
[2019-04-07] MEDS ORDERED: NALOXONE HCL 0.4 MG/1 ML VIAL/CARP IV PRN (19:44)
[2019-04-07] MEDS ORDERED: MAGNESIUM HYDROXIDE SUSP 30 ML UDC PO PRN (19:44)
--- NOTE | 2019-04-07 20:44 | CT Scan Report ---
CT head/brain wo con CLINICAL HISTORY: 73 years-old Female with unresponsive post op. Acutely altered mental status TECHNIQUE: Multiple axial CT images of the head were obtained without contrast. A dose lowering tech nique was utilized adhering to the principles of ALARA. CT DOSE: 638.56 mGycm COMPARISON: CT head 09/19/2018, brain MRI 09/19/2018. FINDINGS: No acute intracranial hemorrhage, midline shift, intracranial mass, hydrocephalus, territorial ischem ia or abnormal extra-axial collection. Age-related involutional changes with ex vacuo ventriculomegal y. Patchy white matter hypodensities suggest chronic microvascular ischemic disease. Remote lacunar i nfarctions about the left basal ganglia redemonstrated. The calvarium is intact. The paranasal sinuses, mastoid air cells, and middle ear cavities are clear . IMPRESSION: Chronic findings as above without acute intracranial abnormality. The above report was generated using voice recognition software. It may contain grammatical, syntax o r spelling errors. Electronically signed by: Kimo Robison M.D. 04/07/2019 8:42 PM
[2019-04-07] MEDS ORDERED: ZOLPIDEM TARTRATE 10 MG TAB PO SCH (21:00)
[2019-04-07] MEDS: CEFAZOLIN 1000MG 1,000 MG/7.5 ML SYR IV SCH (22:41)
--- NOTE | 2019-04-07 23:27 | Operative Report ---
DATE OF OPERATION: 04/07/2019 SURGEON: Coleman Cheney M.D. GARDEN [employer] MECHANIC: SUAD García PREOPERATIVE DIAGNOSIS: Right displaced femoral neck fracture. POSTOPERATIVE DIAGNOSIS: Right displaced femoral neck fracture. PROCEDURE PERFORMED: Right cemented bipolar hip arthroplasty. COMPLICATIONS: None. ESTIMATED BLOOD LOSS: 200 mL. FLUID REPLACEMENT: 1500 mL crystalloid fluid replacement. ANESTHESIA: General. SPECIMENS: Right femoral head sent for pathology. OPERATIVE INDICATIONS: The patient is a 73-year-old female with a host of medical comorbidities, who sustained a fall last evening. She was apparently getting ready for bed and went to get an ice pack to put on her back and sustained a fall. She was unable to walk with acute hip pain. She was brought to the Emergency Room where x-rays revealed displaced femoral neck fracture. The patient was then medically optimized and indicated for surgical treatment. OPERATIVE IMPLANTS: Operative implants consisted of: 1. Shreyas size 14 LD/FX femoral stem. 2. A 13 mm distal centralizer. 3. Small cement restrictor. 4. A 0/28 mm metal articular ball with a 48 mm bipolar shell and liner. OPERATIVE PROCEDURE: The patient taken to the operating room, identified and placed on the operating table in supine position. All contact areas were appropriately padded. IV antibiotics provided by anesthesia team. A general anesthetic was implemented as this patient is on Plavix. The patient was then placed in the left lateral decubitus position. An axillary roll was placed. Stuhlberg hip positioner was used for positioning. Right hip and leg were then prepped and draped in usual sterile fashion. I then first scrubbed the hip and leg with Hibiclens before prepping with ChloraPrep. A posterolateral approach to the right hip was then performed through a curvilinear incision and centered over the greater trochanter. Sharp dissection was carried through subcutaneous tissue down to the level of the IT band and gluteal fascia. The IT band and gluteal fascia were then incised longitudinally in line with skin incision. The underlying greater trochanteric bursa was excised. The piriformis and external rotators were tagged and taken off the posterior aspect of the hip joint capsule. Great care was taken throughout the procedure to protect the sciatic nerve at all times. Posterior capsulotomy was then performed leaving a large flap for labral repair. The hip was internally rotated. Femoral neck osteotomy cut was then made just below the fracture site. The femoral head was then removed. I then sized the acetabulum to a size 48. Attention was then drawn to the femur. The proximal femur was entered with cookie cutter followed by canal finder and lateralizing reamer. I then broached beginning with a size 10 and progressing up to 14. We got good fit with a 14. I trialed the hip and the 0 articular ball provided full stability and full extension and external rotation, flexion to 90 degrees, internal rotation over 70 degrees. Leg lengths seemed appropriate and soft tissue length seemed appropriate. I elected to place these implants. All trial implants were removed. A small cement restrictor was then placed down the femoral canal. A double batch of Palacos G cement was mixed. I then injected the canal with the cement and placed a size 14 LD/FX femoral stem with a 13 centralizer, the canal with maximum anteversion. All extraneous cement was removed. Once the cement hardened, a 0/28 mm articular ball was placed followed by a 48 mm bipolar shell and liner. Hip was located and once again found to be stable. Attention was then drawn toward closing. The wound was irrigated with copious amount of pulsatile lavage solution. I did inject locally with 30 mL of 0.5% Marcaine with epinephrine. Posterior capsule was then repaired with #2 Ti-Cron suture in [id number] fashion. The external rotators and piriformis were then reattached to the posterior hip abductors with #2 Ti-Cron suture. The IT band and gluteal fascia were then closed with #1 PDS suture in running fashion. Subcutaneous tissues were then closed in 2 layers, the deep layer #1 Vicryl sutures, and subcutaneous tissue with 2-0 Dexon suture in a buried interrupted fashion. Skin was then closed with skin laura. Leg was then cleaned and dried and a sterile dressing composed of Xeroform, 4 x 4, ABD pad and foam tape was applied. The patient then transferred to the recovery room in stable condition. Patient tolerated the procedure well with no complications. All needle and sponge counts were correct at the end of the operation. I attest to the content of the Intraoperative Record and any orders documented therein. Any exceptions are noted below. ILIANA
[2019-04-08] MEDS ORDERED: NALOXONE HCL 0.4 MG/1 ML VIAL/CARP IV STA (04:42)
[2019-04-08] MEDS ORDERED: ACETAMINOPHEN 1,000 MG/100 ML VIAL IV STA (05:29)
[2019-04-08] MEDS: LACTATED RINGER'S 1,000 ML IV SCH ×2 (05:43→15:43)
[2019-04-08] MEDS: CEFAZOLIN 1000MG 1,000 MG/7.5 ML SYR IV SCH (06:01)
[2019-04-08 07:50] LABS: BUN Creatinine Ratio 22.2 (10-20); Calcium 8.2 mg/dl (8.5-10.1); Creatinine Clr Calc Pharmacy 67.5 ml/min; Est GFR (African American) 90.8; Est GFR (Non-African American) 78.4
[2019-04-08 07:54] LABS: Hematocrit (blood only) 27.8 % (37-47); Hemoglobin 8.9 g/dL (12.0-16.0); Mean Corpuscular Volume 80.8 fL (80-100); Mean Platelet Volume 9.6 fL (7.4-10.4); Platelet Count 240 K/uL (130-400); RDW Coefficient of Variation 17.3 % (11.5-14.5); RDW Standard Deviation 51.4 fL (36.4-46.3); Red Blood Count 3.44 M/uL (4.2-5.4); White Blood Count 19.57 K/uL (4.8-10.8)
[2019-04-08 08:00] LABS: Basophils # (auto) 0.01 K/uL (0-0.2); Basophils % (auto) 0.1 %; Eosinophils # (auto) 0.01 K/uL (0-0.5); Eosinophils % (auto) 0.1 %; Immature Granulocytes # (auto) 0.05 K/uL (0.00-0.02); Immature Granulocytes % (auto) 0.3 %; Lymphocytes # (auto) 1.03 K/uL (1.2-3.4); Lymphocytes % (auto) 5.3 %; Monocytes # (auto) 1.21 K/uL (0.11-0.59); Monocytes % (auto) 6.2 %; Neutrophils # (auto) 17.26 K/uL (1.4-6.5)
[2019-04-08] MEDS ORDERED: METHYLNALTREXONE BROMIDE 12 MG/0.6 ML VIAL SQ SCH (09:00)
--- NOTE | 2019-04-08 09:42 | Family Medicine Progress Note ---
Date of Service April 08, 2019 Assessment & Plan (1) Closed fracture of right hip: Ms. 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 Closed Impacted R femoral head/neck Fracture s/p Fall -XR: Displaced R femoral head/neck Fracture -thank you to ortho for consult -> s/p Right Hip Hemiarthroplasty day 1 -PT/OT evals -> pt will need rehab placement Altered Mental Status -occurred post-operatively - suspect related to dilaudid and anesthesia, on a background of prior strokes and chronic microvascular changes. May also have a component of delirium involved -appears to be improving - albeit slowly -no focal neurological deficits & head CT w/out any acute findings -pt does have a new leukocytosis today, however afebrile, w/out any findings to suggest infection. Suspect elevated WCC related to stress response from surgery as well as steroids pt received during surgery -continue maintenance IVF with LR at 100mls/hr whilst lethargic -d/c IV narcotics - will order 1g IV tylenol prn, and can resume pain regimen once pt is more awake Chronic constipation: - Bowel regimen ordered, including Colace 100 mg BID and miralax Hx of CVA - 09/17-09/18 for newly diagnosed right periventricular region CVA. - Continue high dose statin, plavix resumed post-operatively HLD - Continue Atorvastatin 80 mg daily Hypertension - Resume daily Lisinopril when pt awake enough to take this GERD - Continue home Protonix. Hx of Breast cancer - History of breast cancer, now in remission. Chronic back pain: - H/o 7 back surgeries. - Follows with pain management -- on narcotics - hold home pain regimen, can readjust on discharge as needed - pt would likely benefit from outpatient OMT Iron deficiency anemia: - Fe Sat and Ferritin were low during previous admission - baseline Hgb 9-10 - Hgb dropped during surgery from 10.3 to 8.9 - will continue to monitor CBC Depression / Anxiety: - Continue home Duloxetine and Lexapro - d/c home ambien given lethargy Vitamin D deficiency/Suspected Osteoporosis - this is pt's second fracture w/minimal trauma - concern for osteoporosis - administered one dose of 50,000 of Vitamin D on 04/07, will continue monthly for next 3 months - increase daily Vitamin D dose from 1,000 units daily to 2000 units daily afterwards. - Has DEXA scheduled for Jun 2019 per . DVT prophylaxis: TEDs/SCDs/Lovenox 40mg SQ daily Code: DNR/DNI Dispo: remains on telemetry pending improvement in mental status (2) Fall: (3) Chronic back pain: (4) Multi-infarct dementia: (5) DVT prophylaxis: (6) Iron deficiency anemia: (7) Chronic constipation: (8) Vitamin D deficiency: (9) Depression: (10) Anxiety: Supervising Physician Co-Signing Physician Notes I personally examined the patient and verified all friedman points of history and exam, discussed case, and agree with decision making with Dr Sánchez. As above noted, she is less responsive today. She will answer some yes/no questions with no follow-up questions, and follows commands irregularly. Vitals noted she is awake but somewhat sedated appearing no physical distress. HEENT normocephalic atraumatic mucous members moist. Breathing unlabored no a ccessory muscle use good effort. Skin shows no rashes no pallor or icterus. Neuro shows mild facial droop but no other notable focal motor or sensory deficits as best can be assessed, and is not clear the facial droop may even be able to correct, but following commands is so erratic. Lungs are clear abdomen soft heart is regular no edema distally neurovascularly intact Hip fracturepresumed osteoporoticincrease vitamin D (her D was 22 back in the spring), anticipate initiating a bisphosphonate after she had about a month of healing. No postop. PT/OT eval and treat Altered mental statusagree with above assessment that in someway should perform this appears to be more of an encephalopathic picture than anything. She does have significant dilation of the ventricles on CT, seemingly somewhat disproportionate to her age, begging the question of a degree of possibly baseline organic brain disease such as dementia, versus less likely (but possible given her balance issues) and mild degree of NPH. That said her current presentation appears to be much more related to delirium from anesthesia/surgery/hospital setting. She does not show any focal deficits that seem consistent with acute stroke, although quite honestly even if she did right now treatment would need to be largely supportive since she would not be a TPA candidate. Chronic back painI suspect she would probably have a slow but steady benefit from OMT to address the muscles and ligaments surrounding her postop low back anatomy. We discussed this briefly, and after discharge she seems willing to give a trial run of OMT to one of the osteopathic residents in her PCPs system. DVT proph - lovenox Subjective Ms. Meza is unable to contribute to her history given she remains somnolent post-op. Post-operatively, I was called to the PACU to evaluate her for being unresponsive. She received several doses of Narcan prior to my arrival. She was lethargic, but would nod yes or no to questions, and her neurological exam was non-focal. Overnight, there was concern for her continued unreponsiveness, and a head CT was ordered, which did not show any acute changes. She was subsequently transferred from med/surg to telemetry. This AM, her reports she remains asleep, but will open her eyes to verbal stimuli, however quickly falls back asleep. Review of Systems Review of Systems: Unobtainable due to cognitive status Physical Exam Constitutional: WD/WN, vitals as above + altered mental status Eyes: PERRL, conjunctivae normal, anicteric sclerae difficult to assess eyes as patient squeezes her eyelids when I try to open them Respiratory: normal respiratory effort, lungs clear to auscultation Cardiovascular: RRR, no murmur, no edema Gastrointestinal (Abdomen): normal bowel sounds, soft, nontender, no hepatosplenomegaly Neurologic: moving all 4 limbs, less so the right leg (where her fracture is) pt slowly lowers arm when raised above head - does not allow it to drop on her f kyler pt opens eyes to verbal stimuli, but quickly falls back asleep Results & Data Vital Signs (Past 12 Hours) Vital Signs Temp Pulse Pulse Resp BP Pulse Ox 04/08/19 06:50 102 H 91 H 167/100 H 91 04/08/19 05:22 117 H 161/105 H 04/08/19 05:15 112 H 166/106 H 95 04/08/19 05:00 115 H 24 159/95 H 100 04/08/19 04:59 96 H 28 H 138/88 98 04/07/19 23:30 36.5 C 100 H 22 111/74 97 04/07/19 22:00 37.0 C 101 H 17 93/64 L 97 PG Care Time/CCT Total # of Minutes Spent Total Time Spent with Patient: Total time spent is greater than 50% in coordination of care (as documented) at patient's floor/unit and/or counseling patient: Resident Activity Tracking Resident Involvement: Resident Care Provided Care Provided: Adult Hospital Medicine (1) Multi-infarct dementia Dementia behavioral disturbance: with behavioral disturbance Qualified Code(s): F01.51 - Vascular dementia with behavioral disturbance (2) Fall Encounter type: initial encounter Qualified Code(s): W19.XXXA - Unspecified fall, initial encounter (3) Closed fracture of right hip Encounter type: initial encounter Qualified Code(s): S72.001A - Fracture of unspecified part of neck of right femur, initial encounter for closed fracture
--- NOTE | 2019-04-08 09:45 | Anesthesiology Progress Note ---
Date of Service April 08, 2019 Anesthesia Post Procedure Vital Signs Vital Signs: Temp Pulse Pulse Pulse Resp BP Pulse Ox 04/08/19 06:50 102 H 91 H 167/100 H 91 04/08/19 05:22 117 H 161/105 H 04/08/19 05:15 112 H 166/106 H 95 04/08/19 05:00 115 H 24 159/95 H 100 04/08/19 04:59 96 H 28 H 138/88 98 04/07/19 23:30 36.5 C 100 H 22 111/74 97 04/07/19 22:00 37.0 C 101 H 17 93/64 L 97 04/07/19 21:01 37.1 C 102 H 17 101/69 97 04/07/19 19:59 36.8 C 99 H 18 101/68 96 04/07/19 19:33 36.8 C 101 H 18 104/70 96 04/07/19 19:15 36.8 C 98 H 14 101/67 94 04/07/19 19:00 103 H 20 118/7 L 95 04/07/19 18:45 36.6 C 101 H 20 122/75 96 04/07/19 18:30 100 H 20 126/71 93 04/07/19 18:15 101 H 20 117/67 92 04/07/19 18:00 100 H 20 111/73 93 04/07/19 17:45 97 H 20 106/63 93 04/07/19 17:30 36.5 C 92 H 20 106/60 95 04/07/19 17:15 89 20 109/63 91 04/07/19 17:05 94 H 20 110/63 91 04/07/19 16:55 112 H 20 150/83 H 93 04/07/19 16:45 82 20 116/68 94 04/07/19 16:35 90 20 121/63 93 04/07/19 16:25 88 20 123/70 95 04/07/19 16:15 94 H 18 119/73 91 04/07/19 16:06 36.3 C L 86 18 108/69 95 04/07/19 13:27 37.3 C 106 H 20 148/86 H 97 Pain Intensity Right Hip: Pain Intensity: 3 Transfer of Care Handoff Completed per policy Notes Mental Status: alert / awake / arousable (Pt awake, appears alert, responds with gaze to verbal although not verbally responsive at this time.) Patient Amnestic to Procedure: Yes Nausea / Vomiting: adequately controlled Pain: adequately controlled Airway Patency, RR, SpO2: stable & adequate BP & HR: stable & adequate Hydration State: stable & adequate Anesthetic Complications: no major complications apparent
--- NOTE | 2019-04-08 09:51 | Progress Note ---
DATE: 04/08/2019 SUBJECTIVE: A 73-year-old white female postop day 1 from a right cemented bipolar hip arthroplasty for fracture. She has really never completely woken up from the anesthesia as per her 's account. She is sitting up in bed. She opens her eyes, but really did not follow commands too much. OBJECTIVE: VITAL SIGNS: Temperature is 36.5. Vital signs stable. GENERAL: Physical examination shows an elderly female. She is sitting up in bed. She does open her eyes and moves her arms spontaneously. Really, did not follow commands. EXTREMITIES: Examination of the right hip and leg reveals the leg lengths to be equal. Dressing is clean, dry and intact. No significant drainage. Her thigh is soft and supple. Cannot assess neurological function due to inability to follow commands. LABORATORY DATA: Hemoglobin is 8.9. Hematocrit 27.8. Electrolytes are stable. White cell count increased at 19.57. A CT scan of the head reveals no intracranial abnormalities. ASSESSMENT: A 73-year-old white female with multiple medical comorbidities postop day 1 from a cemented bipolar hip arthroplasty for fracture. She seems awake, but certainly less responsive than typical. She is easily moving all extremities, although it is difficult to tell with her lower extremities. Anticipate this will likely clear just with time. PLAN: 1. DVT prophylaxis including thigh-high TEDs, SCDs, and we just recommend she stay back on her Plavix. 2. PT/OT. She can fully weightbear on the right leg. She needs to follow hip precautions. 3. Medical management as per the medicine service. 4. Disposition: She will likely need a rehab stay. We will continue to follow her daily. Any orthopedic questions can be directed to me at [phone].
[2019-04-08] MEDS: DOCUSATE SODIUM 100 MG CAP PO SCH ×2 (10:15→20:29)
[2019-04-08] MEDS: DULOXETINE HCL 20 MG CAP PO SCH ×2 (10:15→20:29)
[2019-04-08] MEDS: PANTOprazole 40 MG TAB PO SCH (10:16)
[2019-04-08] MEDS: ESCITALOPRAM OXALATE 10 MG TAB PO SCH (10:16)
[2019-04-08] MEDS: CHOLECALCIFEROL 1,000 UNITS TAB PO SCH (10:16)
[2019-04-08] MEDS: CYANOCOBALAMIN 500 MCG TABLET (VITAMIN B-12) PO SCH (10:16)
[2019-04-08] MEDS: CLOPIDOGREL BISULFATE 75 MG TAB PO SCH (10:16)
[2019-04-08] MEDS: ATORVASTATIN 40 MG TAB PO SCH (10:16)
[2019-04-08] MEDS: ENOXAPARIN INJ 40 MG/0.4 ML SYR SQ SCH (11:33)
[2019-04-08] MEDS: ACETAMINOPHEN 500 MG TAB PO SCH (19:20)
[2019-04-08] MEDS: ONDANSETRON INJ 2 MG/ML 2 ML VIAL IV PRN (20:23)
[2019-04-09] MEDS ORDERED: KETOROLAC TROMETHAMINE 15 MG/ML VIAL IV ONE (01:47)
[2019-04-09] MEDS: LACTATED RINGER'S 1,000 ML IV SCH ×3 (02:00→17:30)
[2019-04-09] MEDS: ACETAMINOPHEN 500 MG TAB PO SCH ×3 (04:57→21:08)
[2019-04-09 05:28] LABS: Basophils # (auto) 0.02 K/uL (0-0.2); Basophils % (auto) 0.2 %; Eosinophils # (auto) 0.07 K/uL (0-0.5); Eosinophils % (auto) 0.5 %; Hematocrit (blood only) 23.8 % (37-47); Hemoglobin 7.5 g/dL (12.0-16.0); Immature Granulocytes # (auto) 0.03 K/uL (0.00-0.02); Immature Granulocytes % (auto) 0.2 %; Lymphocytes # (auto) 1.65 K/uL (1.2-3.4); Lymphocytes % (auto) 12.5 %; Mean Corpuscular Hgb Conc 31.5 g/dL (32-36); Mean Corpuscular Volume 80.7 fL (80-100); Mean Platelet Volume 10.1 fL (7.4-10.4); Monocytes # (auto) 1.03 K/uL (0.11-0.59); Monocytes % (auto) 7.8 %; Neutrophils # (auto) 10.38 K/uL (1.4-6.5); Neutrophils % (auto) 78.8 %; Platelet Count 204 K/uL (130-400); RDW Coefficient of Variation 17.2 % (11.5-14.5); RDW Standard Deviation 51.6 fL (36.4-46.3); Red Blood Count 2.95 M/uL (4.2-5.4); White Blood Count 13.18 K/uL (4.8-10.8)
[2019-04-09 06:19] LABS: Anisocytosis Present; Polychromasia 1+
[2019-04-09 06:22] LABS: Creatinine Clr Calc Pharmacy 98.6 ml/min; Est GFR (African American) 110.6; Est GFR (Non-African American) 95.5; Potassium 3.8 mmol/L (3.5-5.1)
[2019-04-09] MEDS: DULOXETINE HCL 20 MG CAP PO SCH ×2 (08:49→21:09)
[2019-04-09] MEDS: ESCITALOPRAM OXALATE 10 MG TAB PO SCH (08:49)
[2019-04-09] MEDS: ENOXAPARIN INJ 40 MG/0.4 ML SYR SQ SCH (08:50)
[2019-04-09] MEDS: CYANOCOBALAMIN 500 MCG TABLET (VITAMIN B-12) PO SCH (08:50)
[2019-04-09] MEDS: PANTOprazole 40 MG TAB PO SCH (08:50)
[2019-04-09] MEDS: CLOPIDOGREL BISULFATE 75 MG TAB PO SCH (08:50)
[2019-04-09] MEDS: ATORVASTATIN 40 MG TAB PO SCH (08:50)
[2019-04-09] MEDS: LISINOPRIL 5 MG TAB PO SCH (08:51)
--- NOTE | 2019-04-09 09:05 | Progress Note ---
DATE: 04/09/2019 SUBJECTIVE: A 73-year-old white female postop day 2 from right cemented bipolar hip arthroplasty for fracture. She had a really restless night as per . She is lying in bed, sleeping soundly now. PHYSICAL EXAMINATION: EXTREMITIES: Examination of the right hip and leg reveals the leg to be well aligned. Dressing is clean, dry and intact. Thigh is soft and supple. NEUROLOGICAL: Deferred due to her sleeping. LABORATORY DATA: Her hemoglobin is 7.5. Hematocrit 23.8. White cell count improved at 13.18. ASSESSMENT: A 73-year-old female postop day 2 from right cemented bipolar hip arthroplasty for fracture. Had a really restless night, but seems to be resting comfortably now. Neuro exam is difficult due to her sleeping. Hip is located. PLAN: 1. DVT prophylaxis including thigh-high TEDs, SCDs, and we would recommend her just stay on her Plavix. I would not necessarily recommend anything more aggressive as she is a significant fall risk. 2. PT/OT. She can fully weightbear as tolerated, right lower extremity. 3. Pain control. I would limit all pain medicine, stick to Tylenol as much as possible. Could use some additional tramadol if needs something stronger. 4. Medical management as per the medicine service. 5. Disposition: She will likely need a rehab stay. From the orthopedic standpoint, she is okay to go any time medically stable. 6. Anemia. Her hemoglobin is 7.5. She would likely benefit from a single unit of blood, we will leave that up to medicine's discretion. ILIANA
[2019-04-09] MEDS: CHOLECALCIFEROL 1,000 UNITS TAB PO SCH (10:37)
[2019-04-09] MEDS: DOCUSATE SODIUM 100 MG CAP PO SCH ×2 (10:37→21:14)
[2019-04-09] MEDS: KETOROLAC TROMETHAMINE 15 MG/ML VIAL IV SCH ×2 (12:31→17:29)
[2019-04-09 13:02] LABS: Hematocrit (blood only) 23.4 % (37-47); Hemoglobin 7.4 g/dL (12.0-16.0)
--- NOTE | 2019-04-09 13:03 | Family Medicine Progress Note ---
Date of Service April 09, 2019 Assessment & Plan (1) Closed fracture of right hip: Ms. 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 Closed Impacted R femoral head/neck Fracture -XR: Displaced R femoral head/neck Fracture -s/p right hip arthroplasty Day 2: appreciate ortho recs -appreciate pt/ot recs--likely acute rehab on discharge. Altered Mental Status -currently looks like a delirium in the background of past stroke, and recent anesthesia for surgery with narcotic pain meds -slowly improving -no focal neurological deficits & head CT w/out any acute findings -increased WBC which could indicate possible underlying infectious cause but less likely given recent stress of surgery and steroid administration. -WBC on downtrend however -continue scheduled tylenol AND toradol for potential pain cause of delirium; will avoid narcotics but can keep prn tramadol -continue maintenance IVF with LR at 100mls/hr whilst lethargic -will continue to monitor Acute Blood Loss/ Hx of Iron deficiency anemia: -Hgb currently 7.4 post-op -Hgb dropped during surgery from 10.3 to 8.9 -likely acute blood loss post-op in the setting of a Hx of iron def anemia -will continue to trend H/H q8h -will transfuse 1bag for Hgb <7, for unstable vitals, and when pt awake and active (eg.with PT) with signs of dizziness/syncope. - Fe Sat and Ferritin were low during previous admission - baseline Hgb 9-10 -will continue to monitor Chronic constipation: - Bowel regimen ordered, including Colace 100 mg BID and miralax Hx of CVA - 09/17-09/18 for newly diagnosed right periventricular region CVA. - Continue high dose statin, plavix resumed post-operatively HLD - Continue Atorvastatin 80 mg daily Hypertension -Home lisinopril restarted. GERD - Continue home Protonix. Hx of Breast cancer - History of breast cancer, now in remission. Chronic back pain: - H/o 7 back surgeries. - Follows with pain management -- on narcotics- currently held - hold home pain regimen, can readjust on discharge as needed - pt would likely benefit from outpatient OMT Depression / Anxiety: - Continue home Duloxetine and Lexapro - d/c home ambien given lethargy Vitamin D deficiency/Suspected Osteoporosis - this is pt's second fracture w/minimal trauma - concern for osteoporosis - administered one dose of 50,000 of Vitamin D on 04/07, will continue monthly for next 3 months - increase daily Vitamin D dose from 1,000 units daily to 2000 units daily afterwards. - Has DEXA scheduled for Jun 2019 per . DVT prophylaxis: TEDs/SCDs/Lovenox 40mg SQ daily FEN/GI: LR@100, Regular diet Code: DNR/DNI Dispo: med/surg Supervising Physician Co-Signing Physician Notes I personally examined the patient and verified all friedman points of history and exam, discussed case, and agree with decision making with Dr Andres. As above noted, she is less responsive today. She will answer some yes/no questions with no follow-up questions, and follows commands irregularly. Vitals noted she is awake but fatigued but better than yesterday, appearing in no physical distress. HEENT normocephalic atraumatic mucous members moist. Breathing unlabored no accessory muscle use good effort. Skin shows no rashes no pallor or icterus. no focal neuro deficits. breathing unlabored no accessory muscles good effort. Hip fracturepresumed osteoporoticincreased vitamin D (her D was 22 back in the spring), anticipate initiating a bisphosphonate after she had about a month of healing. PT/OT eval and treat Altered mental statusagree with above assessment that in someway should perform this appears to be more of an encephalopathic picture than anything. Possible metabolic encephalopathy in setting of slow narcotic metabolism and anemia. Also she does have significant dilation of the ventricles on CT, seemingly somewhat disproportionate to her age, begging the question of a degree of possibly baseline organic brain disease such as dementia, versus less likely (but possible given her balance issues) and mild degree of NPH. She is showing slow improvement. She does not show any focal deficits that seem consistent with acute stroke, although quite honestly even if she did right now treatment would need to be largely supportive since she would not be a TPA candidate. acute blood loss anemia - from hip fx. no hemodynamic instability right now; not clearly symptomatic. hold on transfusion at this time, but follow closely Chronic back painI suspect she would probably have a slow but steady benefit from OMT to address the muscles and ligaments surrounding her postop low back anatomy. We discussed this briefly, and after discharge she seems willing to give a trial run of OMT to one of the osteopathic residents in her PCPs system. DVT proph - lovenox Subjective Ms. Meza was resting comfortably this AM. at bedside, states she had a difficult night. Had just gone to sleep. Trying to get out of bed, able to tell time however. Review of Systems Review of Systems: Unobtainable due to cognitive status Physical Exam Physical Exam: General: Laying in bed, sound asleep. No acute distress HEENT: NC/AT Chest: Nontender to palpation. CV: RRR, Normal s1, s2. No murmurs appreciated Resp: Breath sounds clear bilaterally, no increased effort of breathing. Abdomen: Soft, nontender, nondistended. No guarding. No organomegaly appreciated. Extremities: SCDs on lower extremities. Results & Data Vital Signs (Past 12 Hours) Vital Signs Temp Pulse Pulse Resp BP BP Pulse Ox 04/09/19 12:00 108 H 14 146/80 H 95 04/09/19 08:00 37.8 C H 94 H 18 132/74 99 04/09/19 04:01 108 H 22 141/82 H 98 Pulse Ox 04/09/19 12:00 94 04/09/19 08:00 04/09/19 04:01 Laboratory Results Laboratory Results - last 24 hr 04/08/19 04/09/19 04/09/19 06:35 04:59 04:59 WBC 13.18 H RBC 2.95 L Hgb 7.5 L Hct 23.8 L MCV 80.7 MCH 25.4 MCHC 31.5 L RDW Std Deviation 51.6 H RDW Coeff of [place] 17.2 H Plt Count 204 MPV 10.1 Immature Gran % (Auto) 0.2 Neut % (Auto) 78.8 Lymph % (Auto) 12.5 [place] % (Auto) 7.8 Eos % (Auto) 0.5 Baso % (Auto) 0.2 Immature Gran # (Auto) 0.03 H Neut # (Auto) 10.38 H Lymph # (Auto) 1.65 [place] # (Auto) 1.03 H Eos # (Auto) 0.07 Baso # (Auto) 0.02 Polychromasia 1+ Anisocytosis Present Sodium 139 Potassium 3.8 Chloride 105 Carbon Dioxide 28 Anion Gap 6.0 BUN 11 Creatinine 0.52 L Est Cr Clr Drug Dosing 98.6 Est GFR ( Amer) 110.6 Est GFR (Non-Af Amer) 95.5 BUN/Creatinine Ratio 21.0 H Glucose 114 H Calcium 8.0 L Specimen Hemolysis Nasal Screen MRSA (PCR) Negative 04/09/19 12:36 WBC RBC Hgb 7.4 L Hct 23.4 L MCV MCH MCHC RDW Std Deviation RDW Coeff of [place] Plt Count MPV Immature Gran % (Auto) Neut % (Auto) Lymph % (Auto) [place] % (Auto) Eos % (Auto) Baso % (Auto) Immature Gran # (Auto) Neut # (Auto) Lymph # (Auto) [place] # (Auto) Eos # (Auto) Baso # (Auto) Polychromasia Anisocytosis Sodium Potassium Chloride Carbon Dioxide Anion Gap BUN Creatinine Est Cr Clr Drug Dosing Est GFR ( Amer) Est GFR (Non-Af Amer) BUN/Creatinine Ratio Glucose Calcium Specimen Hemolysis Nasal Screen MRSA (PCR) Medications Administered Home Medications duloxetine [Cymbalta] 20 mg PO BID 09/17/18 [History Confirmed 04/07/19] escitalopram oxalate [Lexapro] 10 mg PO QAM 09/17/18 [History Confirmed 04/07/19] fluticasone propionate [Flonase Allergy Relief] 1 spray INTRANASAL UD PRN 09/17/18 [History Confirmed 04/07/19] zolpidem [Ambien] 5 mg PO HS 09/17/18 [History Confirmed 04/07/19] clopidogrel 75 mg PO QAM #30 tab 09/18/18 [Rx Confirmed 04/07/19] potassium chloride [Klor-Con M20] 20 meq PO BID #60 tab 09/21/18 [Rx Confirmed 04/07/19] lisinopril [Prinivil] 5 mg PO QAM 11/02/18 [History Confirmed 04/07/19] cholecalciferol (vitamin D3) [Vitamin D3] 1,000 unit PO QAM #30 tab 11/13/18 [Rx Confirmed 04/07/19] docusate sodium 100 mg PO BID #60 cap 11/13/18 [Rx Confirmed 04/07/19] oxycodone 5 - 10 mg PO Q6H PRN #30 tab 11/13/18 [Rx Confirmed 04/07/19] cetirizine-pseudoephedrine [Zyrtec-D] 1 tab PO Q12H PRN 12/14/18 [History Confirmed 04/07/19] cyanocobalamin (vitamin B-12) [Vitamin B-12] 1,000 mcg PO QAM 12/14/18 [History Confirmed 04/07/19] hydrocodone-acetaminophen [[place]] 1 tab PO Q6H PRN #12 tab 12/14/18 [Rx Confirmed 04/07/19] atorvastatin 80 mg PO QAM 03/06/19 [History Confirmed 04/07/19] ergocalciferol (vitamin D2) [Vitamin D2] 50,000 unit PO WK 03/06/19 [History Confirmed 04/07/19] pantoprazole 40 mg PO QAM 03/06/19 [History Confirmed 04/07/19] polyethylene glycol 3350 [Miralax] 17 g PO HS 03/06/19 [History Confirmed 04/07/19] Active Medications Acetaminophen (Tylenol) 1,000 mg PO Q8H [facility] Stop: 05/08/19 19:59 Last Admin: 04/09/19 11:56 Dose: 1,000 mg Documented by: Atorvastatin Calcium (Lipitor) 80 mg PO QAM [facility] Stop: 05/07/19 08:59 Last Admin: 04/09/19 08:50 Dose: 80 mg Documented by: Bisacodyl (Dulcolax) 10 mg AR DAILY PRN PRN Reason: Constipation Stop: 05/07/19 19:43 Clopidogrel Bisulfate (Plavix) 75 mg PO QAM [facility] Stop: 05/08/19 08:59 Last Admin: 04/09/19 08:50 Dose: 75 mg Documented by: Cyanocobalamin (Vitamin B-12) 1,000 mcg PO QAM [facility] Stop: 05/07/19 08:59 Last Admin: 04/09/19 08:50 Dose: 1,000 mcg Documented by: Docusate Sodium (Colace) 100 mg PO BID [facility] Stop: 05/07/19 08:59 Last Admin: 04/09/19 10:37 Dose: 100 mg Documented by: Duloxetine HCl (Cymbalta) 20 mg PO BID [facility] Stop: 05/07/19 08:59 Last Admin: 04/09/19 08:49 Dose: 20 mg Documented by: Enoxaparin Sodium (Lovenox) [facility] Stop: 05/08/19 08:59 Last Admin: 04/09/19 08:50 Dose: 40 mg Documented by: Ergocalciferol (Vitamin D2) 50,000 units PO Mo@0900 [facility] Stop: 05/13/19 08:59 Escitalopram Oxalate (Lexapro Tab) 10 mg PO [facility] Stop: 05/07/19 08:59 Last Admin: 04/09/19 08:49 Dose: 10 mg Documented by: Fluticasone Propionate (Flonase) 1 sprays NA DAILY PRN PRN Reason: SINUS CONGESTION Stop: 05/07/19 05:31 Lactated Ringer's (Lr) 1,000 mls @ 100 mls/hr IV .Q10H [facility] Stop: 05/07/19 05:31 Last Admin: 04/09/19 11:57 Dose: 100 mls/hr Documented by: Ketorolac Tromethamine (Toradol) 15 mg IV Q6H [facility] Stop: 04/14/19 11:59 Last Admin: 04/09/19 12:31 Dose: 15 mg Documented by: Lisinopril (Zestril) 5 mg PO [facility] Stop: 05/09/19 08:59 Last Admin: 04/09/19 08:51 Dose: 5 mg Documented by: Magnesium Hydroxide (Milk Of Magnesia) 30 ml PO DAILY PRN PRN Reason: Constipation Stop: 05/07/19 19:43 Naloxone HCl (Narcan) 0.1 mg IV UD PRN PRN Reason: Opioid Overdose Stop: 05/07/19 19:43 Ondansetron HCl (Zofran) 4 mg IV Q6H PRN PRN Reason: Nausea Stop: 05/07/19 05:31 Last Admin: 04/08/19 20:23 Dose: 4 mg Documented by: Pantoprazole Sodium (Protonix) 40 mg PO [facility] Stop: 05/07/19 08:59 Last Admin: 04/09/19 08:50 Dose: 40 mg Documented by: Vitamin D (Vitamin D3) 2,000 units PO [facility] Stop: 05/09/19 08:59 Last Admin: 04/09/19 10:37 Dose: 2,000 units Documented by: PG Care Time/CCT Total # of Minutes Spent Total Time Spent with Patient: Total time spent is greater than 50% in coordination of care (as documented) at patient's floor/unit and/or counseling patient: Resident Activity Tracking Resident Involvement: Resident Care Provided Care Provided: Adult Hospital Medicine (1) Closed fracture of right hip Encounter type: initial encounter Qualified Code(s): S72.001A - Fracture of unspecified part of neck of right femur, initial encounter for closed fracture
[2019-04-09 20:26] LABS: Hematocrit (blood only) 18.8 % (37-47); Hemoglobin 5.9 g/dL (12.0-16.0)
[2019-04-09] MEDS ORDERED: SODIUM CHLORIDE 0.9% 250 ML IV PRN (20:41)
[2019-04-10] MEDS: KETOROLAC TROMETHAMINE 15 MG/ML VIAL IV SCH ×2 (00:18→05:39)
[2019-04-10] MEDS: ACETAMINOPHEN 500 MG TAB PO SCH ×3 (03:48→19:50)
[2019-04-10] MEDS: LACTATED RINGER'S 1,000 ML IV SCH ×2 (04:58→19:46)
[2019-04-10 05:51] LABS: Basophils # (auto) 0.01 K/uL (0-0.2); Basophils % (auto) 0.1 %; Eosinophils # (auto) 0.18 K/uL (0-0.5); Eosinophils % (auto) 1.8 %; Hematocrit (blood only) 25.3 % (37-47); Hemoglobin 8.4 g/dL (12.0-16.0); Immature Granulocytes # (auto) 0.02 K/uL (0.00-0.02); Immature Granulocytes % (auto) 0.2 %; Lymphocytes # (auto) 1.54 K/uL (1.2-3.4); Lymphocytes % (auto) 15.6 %; Mean Corpuscular Hgb Conc 33.2 g/dL (32-36); Mean Corpuscular Volume 82.7 fL (80-100); Mean Platelet Volume 9.8 fL (7.4-10.4); Monocytes # (auto) 0.83 K/uL (0.11-0.59); Monocytes % (auto) 8.4 %; Neutrophils # (auto) 7.29 K/uL (1.4-6.5); Neutrophils % (auto) 73.9 %; Platelet Count 139 K/uL (130-400); RDW Coefficient of Variation 15.7 % (11.5-14.5); RDW Standard Deviation 47.1 fL (36.4-46.3); Red Blood Count 3.06 M/uL (4.2-5.4); White Blood Count 9.87 K/uL (4.8-10.8)
[2019-04-10 06:27] LABS: BUN Creatinine Ratio 23.9 (10-20); Calcium 7.7 mg/dl (8.5-10.1); Creatinine Clr Calc Pharmacy 96.8 ml/min; Est GFR (African American) 109.9; Est GFR (Non-African American) 94.9; Potassium 3.2 mmol/L (3.5-5.1)
[2019-04-10] MEDS: ENOXAPARIN INJ 40 MG/0.4 ML SYR SQ SCH (08:55)
[2019-04-10] MEDS: ESCITALOPRAM OXALATE 10 MG TAB PO SCH (08:56)
[2019-04-10] MEDS: PANTOprazole 40 MG TAB PO SCH (08:57)
[2019-04-10] MEDS: CLOPIDOGREL BISULFATE 75 MG TAB PO SCH (08:57)
[2019-04-10] MEDS: CYANOCOBALAMIN 500 MCG TABLET (VITAMIN B-12) PO SCH (08:57)
[2019-04-10] MEDS: LISINOPRIL 5 MG TAB PO SCH (08:58)
[2019-04-10] MEDS: ATORVASTATIN 40 MG TAB PO SCH (08:58)
[2019-04-10] MEDS: CHOLECALCIFEROL 1,000 UNITS TAB PO SCH (08:58)
[2019-04-10] MEDS: DULOXETINE HCL 20 MG CAP PO SCH ×2 (08:59→19:47)
[2019-04-10] MEDS: DOCUSATE SODIUM 100 MG CAP PO SCH ×2 (09:03→19:49)
--- NOTE | 2019-04-10 10:33 | Family Medicine Progress Note ---
Date of Service April 10, 2019 Assessment & Plan (1) Closed fracture of right hip: Ms. 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 Closed Impacted R femoral head/neck Fracture -XR: Displaced R femoral head/neck Fracture -s/p right hip arthroplasty Day 3: appreciate ortho recs -appreciate pt/ot recs-- acute rehab on discharge. Altered Mental Status -currently looks like a delirium in the background of past stroke, and recent anesthesia for surgery with narcotic pain meds -slowly improving - pt remarkably improved today from yesterday, but still not quite back at baseline -no focal neurological deficits & head CT w/out any acute findings -continue scheduled tylenol for pain as a cause of delirium, -change scheduled toradol to prn; will avoid narcotics -d/c maintenance IVF given tolerating p.o -will continue to monitor Acute Blood Loss/ Hx of Iron deficiency anemia: -Hgb dropped post-operatively to 5.9 -likely acute blood loss post-op in the setting of a Hx of iron def anemia -received 2 units of blood overnight on 04/09, repeat Hgb 8.4 -will continue to trend H/H q8h -Fe Sat and Ferritin were low during previous admission -baseline Hgb 9-10 Chronic constipation: -Bowel regimen ordered, including Colace 100 mg BID and miralax Hx of CVA -09/17-09/18 for newly diagnosed right periventricular region CVA. -Continue high dose statin, plavix resumed post-operatively HLD -Continue Atorvastatin 80 mg daily Hypertension -Home lisinopril restarted w/improvement in BP GERD - Continue home Protonix. Hx of Breast cancer - History of breast cancer, now in remission. Chronic back pain: - H/o 7 back surgeries. - Follows with pain management -- on narcotics- currently held - hold home pain regimen, can readjust on discharge as needed - pt would likely benefit from outpatient OMT Depression / Anxiety: - Continue home Duloxetine and Lexapro - home ambien discontinued given lethargy Vitamin D deficiency/Suspected Osteoporosis - this is pt's second fracture w/minimal trauma - concern for osteoporosis - administered one dose of 50,000 of Vitamin D on 04/07, will continue monthly for next 3 months - increase daily Vitamin D dose from 1,000 units daily to 2000 units daily afterwards. - Has DEXA scheduled for Jun 2019 per . DVT prophylaxis: TEDs/SCDs/Lovenox 40mg SQ daily FEN/GI: Regular diet Code: DNR/DNI Dispo: med/surg, referrals placed to [facility] Supervising Physician Co-Signing Physician Notes I personally examined the patient and verified all friedman points of history and exam, discussed case, and agree with decision making with Dr Mchugh. Patient seen multiple times today. First seen approximately 1230 this afternoon and she was much more talkative than she has been in the last several days. She mostly noted that she wanted to go home, but seem to express a good understanding of why she would likely need to go to rehab. She denied pain or any other complaints. Later revisited at that time Dr. Mchugh was called about her slurred speech. At this point HPI and review of systems were very difficult to obtain, she was slurring her words sometimes in ways that seem to fit more with delirium but other times in ways that were more of a word finding difficulty. On third visit, she is awake alert actually joking around at times and telling me that she does trust my care, while at the same time having some difficulty with word finding but seeming to be able to work around it. Vitals noted the most relevant exam was at the time of her slurring of words. Speech was as above. She would follow commands loosely, but would not follow commands with her left hand. She was able to move it in full range of motion, and sensation appear to be intact, but she would not volitionally squeeze, and whenever I asked her to squeeze with her left hand she would squeeze with her right even if I was not holding it. Later again her exam is much improved. StrokeCT showing cerebellar strokes. I discussed with the patient/ in regards to this. They expressed understanding. It seems that her window of when she had the stroke was somewhere after I saw her at 1230, but before Dr. Mchugh had reassessed, but in spite of this, given that she is freshly postop from a hip fracture, thrombolytics would obviously be catastrophically dangerous. Moved to telemetry to monitor for A. fib, hold antihypertensives and hydrate to allow for permissive hypertension, supportive care. Discussed the situation with neurology, and they agreed, and suggested MRI given her prior embolic source not yet being determined, and if current strokes are all cerebellar that the vertebrobasilar system would be suspect, but if the strokes are more diffuse then obviously we would need to search for a more central source. Hold off on further secondary work-up pending MRI results, so as to focus the work-up appropriately. Continue supportive care. Continue PT/OT eval and treat. Continue antiplatelets. Continue pharmacologic DVT prophylaxis, no bleed noted, and certainly she is fairly high risk for DVT. Hip fracturepresumed osteoporoticincreased vitamin D (her D was 22 back in the spring), anticipate initiating a bisphosphonate after she had about a month of healing. PT/OT eval and treat. She is stable for discharge to rehab in this regard. Altered mental statusshe seems to have 2 different altered mental status now. The last several days were clearly a delirium, probably related to anesthesia/medicines/pain and anemia. Today, this morning, her delirium appeared to be improving, but then this afternoon unfortunately she had a change of mental status related to the stroke. Continue to monitor closely. acute blood loss anemia - from hip fx. no hemodynamic instability but did have a drop in hemoglobin enough to require transfusion. Now stable. No clear ongoing bleeding. Never any hypotension. Chronic back painI suspect she would probably have a slow but steady benefit from OMT to address the muscles and ligaments surrounding her postop low back anatomy. We discussed this briefly, and after discharge she seems willing to gi ve a trial run of OMT to one of the osteopathic residents in her PCPs system. DVT proph - lovenox (discussed with neurology as well) Subjective Ms. Meza reports she feels well today. She states that she has no pain. She frequently asked to be discharged home. She is able to tell me her name, where she is, and the year, but is a little bit hazy surrounding the events that brought her to the hospital. She is easily distracted, however answers my questions appropriately. Review of Systems Constitutional: + fatigue; no fever, no chills and no anorexia Respiratory: no cough, no dyspnea and no wheezing Cardiovascular: no chest pain, no syncope, no edema and no calf pain Gastrointestinal: no abdominal pain, no nausea and no vomiting Physical Exam Constitutional: WD/WN, vitals as above Eyes: PERRL, conjunctivae normal, anicteric sclerae Respiratory: normal respiratory effort, lungs clear to auscultation Cardiovascular: RRR, no murmur, no edema Gastrointestinal (Abdomen): normal bowel sounds, soft, nontender, no hepatosplenomegaly Neurologic: moves all extremities, awake and + confused Psychiatric: A+Ox3, euthymic affect Results & Data Vital Signs (Past 12 Hours) Vital Signs Temp Pulse Pulse Resp BP BP Pulse Ox 04/10/19 08:00 37.3 C 86 14 141/75 H 95 04/10/19 05:38 04/10/19 05:35 37.6 C H 88 14 144/88 H 94 04/10/19 04:35 36.7 C 93 H 16 146/86 H 91 04/10/19 03:35 36.5 C 100 H 14 130/77 92 04/10/19 02:35 36.5 C 100 H 16 136/76 92 04/10/19 02:15 37.4 C 93 H 14 124/77 94 04/10/19 02:03 37.3 C 94 H 14 138/78 93 04/10/19 01:30 37.1 C 87 16 125/77 94 04/10/19 01:10 37.1 C 89 16 134/77 96 04/10/19 00:10 37.1 C 92 H 16 124/74 94 04/09/19 23:45 04/09/19 23:10 36.3 C L 100 H 18 126/76 93 04/09/19 22:43 37.2 C 97 H 18 117/72 97 Pulse Ox 04/10/19 08:00 04/10/19 05:38 94 04/10/19 05:35 04/10/19 04:35 04/10/19 03:35 04/10/19 02:35 04/10/19 02:15 04/10/19 02:03 04/10/19 01:30 04/10/19 01:10 04/10/19 00:10 04/09/19 23:45 92 04/09/19 23:10 04/09/19 22:43 PG Care Time/CCT Total # of Minutes Spent Total Time Spent with Patient: Total time spent is greater than 50% in coordination of care (as documented) at patient's floor/unit and/or counseling patient: Resident Activity Tracking Resident Involvement: Resident Care Provided Care Provided: Adult Hospital Medicine (1) Closed fracture of right hip Encounter type: initial encounter Qualified Code(s): S72.001A - Fracture of unspecified part of neck of right femur, initial encounter for closed fracture
[2019-04-10] MEDS ORDERED: POTASSIUM CHLORIDE 20 MEQ TABCR PO ONE (10:45)
[2019-04-10] MEDS ORDERED: KETOROLAC TROMETHAMINE 15 MG/ML VIAL IV PRN (12:00)
[2019-04-10 12:48] LABS: Hematocrit (blood only) 26.5 % (37-47); Hemoglobin 8.8 g/dL (12.0-16.0)
[2019-04-10 16:15] LABS: Basophils # (auto) 0.02 K/uL (0-0.2); Basophils % (auto) 0.2 %; Eosinophils # (auto) 0.14 K/uL (0-0.5); Eosinophils % (auto) 1.4 %; Hematocrit (blood only) 27.9 % (37-47); Hemoglobin 9.1 g/dL (12.0-16.0); Immature Granulocytes # (auto) 0.04 K/uL (0.00-0.02); Immature Granulocytes % (auto) 0.4 %; Lymphocytes # (auto) 1.39 K/uL (1.2-3.4); Lymphocytes % (auto) 13.4 %; Mean Corpuscular Volume 82.8 fL (80-100); Monocytes # (auto) 0.78 K/uL (0.11-0.59); Monocytes % (auto) 7.5 %; Neutrophils # (auto) 7.98 K/uL (1.4-6.5); Neutrophils % (auto) 77.1 %; Platelet Count 175 K/uL (130-400); Red Blood Count 3.37 M/uL (4.2-5.4); White Blood Count 10.35 K/uL (4.8-10.8)
[2019-04-10 16:16] LABS: Mean Corpuscular Hgb Conc 32.6 g/dL (32-36)
--- NOTE | 2019-04-10 16:26 | CT Scan Report ---
CT head/brain wo con CLINICAL HISTORY: Acute change in mental status. Possible stroke. COMPARISON STUDY: 04/07/2019 TECHNIQUE: Axial CT of the brain is performed from the vertex to the skull base. IV contrast was not administered for this examination. A dose lowering technique was utilized adhering to the principles of ALARA. CT DOSE: 729.78 mGycm FINDINGS: There are new bilateral cerebellar hypodensities, consistent with subacute infarcts. There is no evid ence of acute hemorrhage. There is no evidence of midline shift. No calvarial fractures are visualize d. There are patchy white matter hypodensities likely on a small vessel basis. In addition there are sca ttered lacunar infarcts most pronounced in the left basal ganglia region. There is mild ventricular dilatation, similar to the prior study and likely secondary to volume loss There is no evidence of acute sinusitis IMPRESSION: 1. Interval development of bilateral cerebellar hypodensities, consistent with subacute infarcts 2. No evidence of acute hemorrhage Electronically signed by: Franc Mims M.D. 04/10/2019 4:25 PM
[2019-04-10 16:33] LABS: BUN Creatinine Ratio 20.6 (10-20); Calcium 8.6 mg/dl (8.5-10.1); Creatinine Clr Calc Pharmacy 81.4 ml/min; Est GFR (African American) 103.9; Est GFR (Non-African American) 89.6; Potassium 3.4 mmol/L (3.5-5.1)
--- NOTE | 2019-04-10 18:03 | Progress Note ---
DATE: 04/10/2019 SUBJECTIVE: A 73-year-old female postop day 3 from right cemented bipolar hip arthroplasty for fracture. She had a difficult time waking up. I am seeing her on the floor today and she is somewhat responsive and moving and awake, but still quite confused. Seems to be slurring of speech a bit. Really does not follow commands. OBJECTIVE: VITAL SIGNS: Temperature 37.1. Vital signs stable. GENERAL: Elderly female. She is just acting completely confused this afternoon. Speech is slurred. She is moving her extremities. Does not follow commands. Her hip incision is clean, dry and intact. Neurovascular exam is limited due to her limited following commands. LABORATORY DATA: Hemoglobin 9.1. Hematocrit 27.9. Electrolytes are stable. ASSESSMENT: A 73-year-old white female 3 days out from a right cemented bipolar hip arthroplasty for fracture with quite a bit of confusion. This is the first I have seen her really moving since surgery. The nursing staff and Medicine team are evaluating her as she seems to be a bit different than she was this morning. PLAN: 1. DVT prophylaxis including thigh-high TEDs, SCDs, and we recommend just back on her Plavix. I would not necessarily recommend Lovenox in this high risk fall patient. 2. PT/OT. She can fully weightbear as tolerated. Right total hip precautions. 3. Medical management as per the Medicine Service. She is currently undergoing evaluation for this increased confusion. 4. Disposition: She will likely need a rehab stay. She is orthopedically okay for discharge any time medically stable, but the likely will be sometime.
--- NOTE | 2019-04-10 23:41 | Magnetic Resonance Report ---
MRI OF THE BRAIN WITHOUT IV CONTRAST CLINICAL HISTORY: Stroke. COMPARISON STUDY: CT of the brain dated 04/10/2019. MRI of the brain dated 09/19/2018. TECHNIQUE: MRI of the brain was performed utilizing various T1 and T2-weighted sequences in the axial , sagittal, and coronal planes. IV contrast was not administered for this examination. The examinatio n is modestly degraded by motion artifact. FINDINGS: Brain parenchyma: There is age-related involutional change noting moderate to advanced confluent subc ortical and periventricular microangiopathic disease. There are large foci of restricted diffusion id entified within both cerebellar hemispheres, left greater than right consistent with acute to subacut e ischemia. There are numerous additional punctate foci of acute ischemia is scattered throughout the right occipital cortex, the right thalamus, the right parietal cortex, the high right frontal cortex , and the high left parietal cortex. There is no hemorrhage or mass effect. A chronic lacunar infarct is noted in the left basal ganglia. No extra-axial fluid collection is seen. The cerebellar tonsils are normal in configuration. Ventricles, sulci, and cisterns: Prominent secondary to involutional change. Pituitary and sella: Unremarkable. Intracranial vasculature: Normal flow voids are maintained at the skull base. Orbits: The bony orbits are grossly intact. Orbital contents are normal in appearance noting bilatera l ocular lens implants. Sinuses and mastoids: Clear. Calvarium: Unremarkable. Cervical cord: Partially visualized cervical spinal cord is normal in morphology and signal intensity . IMPRESSION: 1. There are large acute to subacute infarcts identified within both cerebellar hemispheres. 2. There are numerous additional punctate foci of ischemia scattered throughout both hemispheres as d etailed above, right greater than left. The distribution suggests an embolic phenomenon. 3. There is no hemorrhage or mass effect. Electronically signed by: Miguel Hernandez M.D. 04/10/2019 11:40 PM
[2019-04-10] MEDS: KETOROLAC TROMETHAMINE 15 MG/ML VIAL IV PRN (23:47)
[2019-04-11] MEDS: ACETAMINOPHEN 500 MG TAB PO SCH ×3 (03:46→19:48)
[2019-04-11 08:44] LABS: Basophils # (auto) 0.02 K/uL (0-0.2); Basophils % (auto) 0.2 %; Eosinophils # (auto) 0.18 K/uL (0-0.5); Eosinophils % (auto) 2.1 %; Hematocrit (blood only) 24.8 % (37-47); Hemoglobin 8.1 g/dL (12.0-16.0); Immature Granulocytes # (auto) 0.02 K/uL (0.00-0.02); Immature Granulocytes % (auto) 0.2 %; Lymphocytes # (auto) 1.56 K/uL (1.2-3.4); Lymphocytes % (auto) 18.4 %; Mean Corpuscular Hgb Conc 32.7 g/dL (32-36); Mean Corpuscular Volume 82.4 fL (80-100); Mean Platelet Volume 9.9 fL (7.4-10.4); Monocytes # (auto) 0.74 K/uL (0.11-0.59); Monocytes % (auto) 8.7 %; Neutrophils # (auto) 5.95 K/uL (1.4-6.5); Neutrophils % (auto) 70.4 %; Platelet Count 185 K/uL (130-400); RDW Coefficient of Variation 16.1 % (11.5-14.5); RDW Standard Deviation 48.5 fL (36.4-46.3); Red Blood Count 3.01 M/uL (4.2-5.4); White Blood Count 8.47 K/uL (4.8-10.8)
[2019-04-11] MEDS: CHOLECALCIFEROL 1,000 UNITS TAB PO SCH (09:04)
[2019-04-11] MEDS: CLOPIDOGREL BISULFATE 75 MG TAB PO SCH (09:04)
[2019-04-11] MEDS: ATORVASTATIN 40 MG TAB PO SCH (09:05)
[2019-04-11] MEDS: ESCITALOPRAM OXALATE 10 MG TAB PO SCH (09:05)
[2019-04-11] MEDS: PANTOprazole 40 MG TAB PO SCH (09:05)
[2019-04-11] MEDS: DULOXETINE HCL 20 MG CAP PO SCH ×2 (09:06→21:44)
[2019-04-11] MEDS: ENOXAPARIN INJ 40 MG/0.4 ML SYR SQ SCH (09:07)
[2019-04-11] MEDS: CYANOCOBALAMIN 500 MCG TABLET (VITAMIN B-12) PO SCH (09:16)
[2019-04-11 09:20] LABS: BUN Creatinine Ratio 22.3 (10-20); Calcium 8.4 mg/dl (8.5-10.1); Creatinine Clr Calc Pharmacy 84.1 ml/min; Est GFR (Non-African American) 90.6; Potassium 3.5 mmol/L (3.5-5.1)
[2019-04-11] MEDS: POTASSIUM CHLORIDE 20 MEQ TABCR PO SCH ×2 (09:26→21:44)
[2019-04-11] MEDS: DOCUSATE SODIUM 100 MG CAP PO SCH ×2 (09:26→21:44)
--- NOTE | 2019-04-11 11:00 | Progress Note ---
DATE: 04/11/2019 SUBJECTIVE: A 73-year-old white female postop day 4 from right cemented bipolar hip arthroplasty for fracture. She had a difficult time waking up from anesthesia and took a while and then she had an episode yesterday where she had clearly altered level of consciousness. She had a CT scan and MRI which suggested some patchy stroke and ischemic areas in her brain consistent with a recent infarct. She seems to be doing much better today. She is moving all extremities. She is complaining of some right hip pain, but seems much more appropriate, and awake, alert and oriented. OBJECTIVE: VITAL SIGNS: Temperature is 36.6. Vital signs stable. EXTREMITIES: Examination of the right leg reveals some moderate swelling of her thigh. She does have some serosanguineous drainage at her bandage site which she has pulled off. Leg lengths were equal. Hip is located. She can dorsiflex and plantarflex her foot appropriately. LABORATORY DATA: Hemoglobin is 9.1 from yesterday. No new labs this morning. Labs are pending. A CT scan and MRI suggest recent cerebellar strokes in several areas. ASSESSMENT: A 73-year-old female with multiple medical comorbidities postop day 4 from a right cemented bipolar hip arthroplasty for fracture with very waxing and waning medical situation. She did have changes in her mental status and function yesterday and it appears that she has had some stroke activity based on her imaging studies. She seems much better today. There are no focal neurological deficits, but that is probably not too unexpected based on where her stroke findings located on the MRI. I do think aggressive anticoagulation in this patient is with significant risks, especially so early from surgery. It is clearly a risk-benefit ratio and we will leave that up to the medical doctors. PLAN: From the orthopedic standpoint, she can weightbear as tolerated. She is on Plavix and Lovenox. She is certainly going to bleed some from her hip while with this. Any more aggressive anticoagulation will leave up to the medical staff. We will continue routine wound care. She needs to follow hip precautions. Not much other findings from the orthopedic standpoint. Her extremities seemed to be neurologically intact without focal deficits there. Any orthopedic questions can be directed to me at [phone].
[2019-04-11] MEDS: LACTATED RINGER'S 1,000 ML IV SCH (12:43)
--- NOTE | 2019-04-11 12:44 | Neurology Consultation ---
Date of Consultation April 11, 2019 Assessment & Plan (1) Acute CVA (cerebrovascular accident): (2) Acute encephalopathy: (3) Acute left-sided weakness: (4) Multi-infarct dementia: Patient has suffered multiple embolic strokes with a large left cerebellar hemispheric stroke and medium size right cerebellar hemispheric stroke. There are multiple tiny strokes scattered right greater than left side and different vascular distributions. All of this is consistent with embolic stroke. The timing of the strokes are not readily apparent. I am not convinced that all of her strokes occurred yesterday afternoon. They may have actually started perioperatively. She had acute encephalopathy and other problems immediately postop. I do note the profound anemia requiring transfusion. This could be a risk factor for stroke also, although the MRI did not show watershed infarcts. Interestingly, in September of 2018 CT angiography of the head neck were unremarkable and echocardiogram was unremarkable as well. These embolic strokes would have to come from a proximal vessel such as the aortic arch or the heart itself. On exam she has some weakness and upper motor neuron signs in the left arm and leg. She does not have any specific aphasia or dysarthria like yesterday. Ther e is some ataxia of the left upper extremity which would fit with the left cerebellar hemisphere stroke. There is some history of having underlying vascular dementia. If this is true then she could easily be tipped into a delirium from a number of different issues including anemia, medications, or the surgery itself. She does have old small vessel ischemic disease of a mild to moderate nature seen on MRI. Recommendations: 1. Consider TTE 2. Consider repeat CT angiography of the aortic arch and larger vessels into the head 3. Continue Plavix for now as this is helping her small vessel ischemic disease for which she has a risk. 4. Hold on anticoagulation for now until a sources identified. For now, she is using Lovenox. Aggressive anticoagulation could turn her current strokes into hemorrhagic transformation. 5. Increase activity as able. 6. Control blood pressure as you are doing aiming for a mean arterial pressure between 95 and 100. 7. Check fasting lipid profile 8. She will need PT, OT, and speech therapy consults for evaluation and treatment. Overall, I spent a total 115 minutes with this case including review of records, review of MRI films, direct evaluation the patient bedside, and discussion of the case with the patient at bedside, her spouse who was at bedside, and Dr. Gracia, including differential diagnosis and treatment options. History of Present Illness Reason for Consultation: Patient is a 73-year-old, who I was asked to see at the request of Dr. Gracia, for neurologic consultation regarding acute speech abnormalities and stroke. Requesting Physician: Dr. Gracia Attending Physician: Nataly Gracia MD History of Present Illness In September of 2018, patient had a right periventricular stroke. She saw Dr. Fitch who initiated Plavix. MRI showed an old left internal capsule stroke and other nonspecific small vessel ischemic disease. At that time, CT angiography of the head neck were unremarkable and a regular echocardiogram was unremarkable as well. There was no atrial fibrillation or cardiac dysrhythmia. The patient has been doing well on Plavix up until this hospitalization (verified by the who was present at bedside today). On April 07 she fell and fractured her right hip. She underwent surgical correction by Dr. Cheney that day. She was noted to have severe anemia postoperatively and was confused/delirious for at least the next 24 hours after surgery. On April 09 her hemoglobin was 5.9 and hematocrit 18.8. She was transfused 2 units. Apparently she remained somewhat confused and on April 10 around 1500 she was noted to have a glazed look and had trouble speaking. A report mentioned word salad. The patient herself does not remember this. She does he remember falling. MRI of the brain yesterday showed a rather large acute left cerebellar hemisphere stroke and medial right cerebellar hemisphere stroke with multiple tiny scattered acute strokes bilaterally in multiple vascular distributions. This was consistent with emboli. Today hemoglobin is 8.1 hematocrit 24.8. Chem profile was unremarkable. She denies pain or headaches, numbness or vision problems. She says she has weakness in her right leg. Allergies Allergy/AdvReac Type Severity Reaction Status Date / Time No Known Drug Allergies Allergy Unknown . Verified 04/07/19 02:51 Home Medications Home Medications Medication Instructions Recorded Confirmed Type duloxetine [Cymbalta] 20 mg PO BID 09/17/18 04/07/19 History escitalopram oxalate [Lexapro] 10 mg PO QAM 09/17/18 04/07/19 History fluticasone propionate [Flonase 1 spray INTRANASAL UD PRN 09/17/18 04/07/19 History Allergy Relief] zolpidem [Ambien] 5 mg PO HS 09/17/18 04/07/19 History clopidogrel 75 mg PO QAM #30 tab 09/18/18 04/07/19 Rx potassium chloride [Klor-Con M20] 20 meq PO BID #60 tab 09/21/18 04/07/19 Rx lisinopril [Prinivil] 5 mg PO QAM 11/02/18 04/07/19 History cholecalciferol (vitamin D3) 1,000 unit PO QAM #30 tab 11/13/18 04/07/19 Rx [Vitamin D3] docusate sodium 100 mg PO BID #60 cap 11/13/18 04/07/19 Rx oxycodone 5 - 10 mg PO Q6H PRN #30 tab 11/13/18 04/07/19 Rx cetirizine-pseudoephedrine 1 tab PO Q12H PRN 12/14/18 04/07/19 History [Zyrtec-D] cyanocobalamin (vitamin B-12) 1,000 mcg PO QAM 12/14/18 04/07/19 History [Vitamin B-12] hydrocodone-acetaminophen [[place]] 1 tab PO Q6H PRN #12 tab 12/14/18 04/07/19 Rx atorvastatin 80 mg PO QAM 03/06/19 04/07/19 History ergocalciferol (vitamin D2) 50,000 unit PO WK 03/06/19 04/07/19 History [Vitamin D2] pantoprazole 40 mg PO QAM 03/06/19 04/07/19 History polyethylene glycol 3350 [Miralax] 17 g PO HS 03/06/19 04/07/19 History Patient History Medical History Closed fracture of right distal tibia Aphasia (Acute) H/O FROM STROKE 09/2018. Stroke SEPTEMBER 17, 2018. TREATED AT [facility]. FOLLOWED WITH DR FITCH. SHORT TERM MEMORY DIFFICULTIES, reason for plavix Stroke-like symptoms (Acute) 09/2018 Depression Anxiety High cholesterol (Chronic) Hypertension (Chronic) Acid reflux (Chronic) Breast cancer 1999. RIGHT LUMPECTOMY. Chronic back pain (Chronic) Constipation reason for scheduled colonoscopy Degenerative disc disease Deviated septum On anticoagulant therapy Osteoarthritis Peptic ulcer disease H/O BLEEDING ULCERS Transient ischemic attack (TIA) H/O. LAST EPISODE WAS OCTOBER 2017 Surgical History Status post ORIF of fracture of ankle H/O: hysterectomy History of ankle surgery Fusion of spine LUMBAR History of arthroscopy BILATERAL KNEE ARTHROSCOPY History of back surgery (7 TOTAL) History of carpal tunnel release BILATERAL History of cataract surgery BILATERAL History of colonoscopy History of discectomy LUMBAR x4 History of esophagogastroduodenoscopy (EGD) History of open reduction and internal fixation (ORIF) procedure right ankle fx---hardware in place Hx of lumpectomy RIGHT Family History Brother Stroke Mother , age 80 of heart issues. Coronary heart disease [place] Father , age 36 in a motor vehicle accident No problems noted. Other No family history of adverse response to anesthesia Social History Preferred Language: Frisian Communication Ability: Effective Visual Impairment: No Limitations Caddy/Caddie Supervisor Required: No Beliefs That Will Affect Care: None marital status: Current Living Situation: Spouse current occupational status: previously employed Other Information That Helps Us Care for You: No Feels Safe at Home: Yes Safety Concerns: Feels Safe At This Time Smoking Status: Never smoker Second Hand Exposure: No ; Hx Alcohol Use: No Hx Substance Use: No Review of Systems Constitutional: + fatigue and + weakness; no fever Eyes: no diplopia, no eye pain and no worsening vision Ear, Nose, Mouth, Throat: no ear pain, no tinnitus, no hearing loss, no dizziness, no snoring, no hoarseness and no dysphagia Respiratory: no cough and no dyspnea Cardiovascular: no chest pain, no palpitations and no lightheadedness Gastrointestinal: no abdominal pain, no nausea and no vomiting Genitourinary: no dysuria, no urinary frequency and no urinary incontinence Musculoskeletal: no back pain, no neck pain, no radicular pain, no joint pain and no myalgia Integumentary: no rash and no lesions Neurologic: + localized weakness; no gait abnormality, no generalized weakness, no tingling, no numbness, no tremor(s), no abnormal movements, no headache(s), no abnormal speech, no confusion and no memory loss Psychiatric: no depression, no irritability, no anxiety, no difficulty concentrating, no confusion and no hallucinations Endocrine: no fatigue and no flushing Hematologic / Lymphatic: no easy bleeding and no easy bruising Allergy / Immunological: no urticaria and no problem reported Physical Exam Physical Exam: The patient is left-handed. The patient is awake, alert, and attentive. Speech is normal without any aphasia or dysarthria. She can name objects, repeat phrases, and has normal spontaneou s speech. Mentation and thought processes are reasonably intact, with orientation to person. She knew the month but did know her age the year or the date. She thought she was in an apartment and did not realize she was in the hospital. She has reasonable fund of knowledge for conversation. Attention and concentration are normal. Mood and affect are normal and appropriate. General appearance and grooming are normal. Short term memory is impaired and long-term memory is reasonable to conversation. The discs are sharp with positive venous pulsations bilaterally. There are no exudates, hemorrhages, or blood vessel changes seen. Pupils are 3 mm bilaterally and reactive to light. Extraocular eye muscles are intact without nystagmus. Visual acuity and visual hanson seem normal grossly to confrontation. There are no deficits to sensation in the face in all 3 distributions of the fifth cranial nerve bilaterally. Corneal reflexes are positive bilaterally. Facial strength was normal bilaterally however, she had a mild droop of the corner of the mouth on the right. Her feels this is old from a previous stroke. Hearing seems normal to whisper and finger rub bilaterally. Palate moves well without asymmetry. There is normal sternocleidomastoid and trapezius (shoulder shrug) strength bilaterally. Tongue is midline with good strength bilaterally. Neck has a full range of motion without discomfort. There are no cervical bruits bilaterally. There are no cranial or ocular bruits. Heart is without murmur. There is a regular rhythm and rate. Cervical, thoracic, and lumbar spine are nontender to palpation. Gait was not tested and stance was poor sitting up in bed. With outstretched arms there is questionable drift bilaterally. There are no resting, postural, or action tremors. There is mild ataxia with [id number] testing on the left, not present on the right. There is decreased facility in the left hand compared to the right. No other abnormal involuntary movements are noted. Motor strength is 5/5 diffusely in the right upper extremity both proximally distally. The left upper extremity is 4+/5 diffusely. Leg strength really could not be adequately assessed because they are bound together to prevent leg movement because of her hip fracture surgery. She has 5/5 strength with gastrocnemius muscles bilaterally and 4/5 with tibialis anterior. The limbs have good tone without rigidity or spasticity. The left upper extremity may have slightly less tone in the right upper extremity. There is no atrophy noted in the muscles. Muscle bulk is normal, there is no tenderness to palpation, no myotonia to percussion, and no fasciculations seen. Sensory examination is intact to touch and pin throughout all 4 limbs diffusely. Reflexes are 2/4 in the biceps, triceps, and brachioradialis tendons bilaterally. Quadriceps tendon reflexes were difficult to elicit because her legs were bound and Achilles reflexes were absent bilaterally. There is no clonus bilaterally. Toes are upgoing on plantar stimulation on the left and downgoing on the right. Peripheral pulses are present and of normal quality distally in all 4 limbs. There is no peripheral edema noted in the limbs. Results & Data Vital Signs (Past 12 Hours) Vital Signs Temp Pulse Pulse Resp BP Pulse Ox Pulse Ox 04/11/19 12:02 36.7 C 102 H 18 159/74 H 95 04/11/19 08:00 83 94 04/11/19 07:40 36.6 C 81 20 159/79 H 92 04/11/19 02:54 36.9 C 85 19 144/82 H 96 04/11/19 01:52 36.8 C 99 H 20 147/76 H 92 Diagnostic Findings MRI OF THE BRAIN WITHOUT IV CONTRAST CLINICAL HISTORY: Stroke. COMPARISON STUDY: CT of the brain dated 04/10/2019. MRI of the brain dated 09/19/2018. TECHNIQUE: MRI of the brain was performed utilizing various T1 and T2-weighted sequences in the axial, sagittal, and coronal planes. IV contrast was not administered for this examination. The examination is modestly degraded by motion artifact. FINDINGS: Brain parenchyma: There is age-related involutional change noting moderate to advanced confluent subcortical and periventricular microangiopathic disease. There are large foci of restricted diffusion identified within both cerebellar hemispheres, left greater than right consistent with acute to subacute ischemia. There are numerous additional punctate foci of acute ischemia is scattered throughout the right occipital cortex, the right thalamus, the right parietal cortex, the high right frontal cortex, and the high left parietal cortex. There is no hemorrhage or mass effect. A chronic lacunar infarct is noted in the left basal ganglia. No extra-axial fluid collection is seen. The cerebellar tonsils are normal in configuration. Ventricles, sulci, and cisterns: Prominent secondary to involutional change. Pituitary and sella: Unremarkable. Intracranial vasculature: Normal flow voids are maintained at the skull base. Orbits: The bony orbits are grossly intact. Orbital contents are normal in appearance noting bilateral ocular lens implants. Sinuses and mastoids: Clear. Calvarium: Unremarkable. Cervical cord: Partially visualized cervical spinal cord is normal in morphology and signal intensity. IMPRESSION: 1. There are large acute to subacute infarcts identified within both cerebellar hemispheres. 2. There are numerous additional punctate foci of ischemia scattered throughout both hemispheres as detailed above, right greater than left. The distribution suggests an embolic phenomenon. 3. There is no hemorrhage or mass effect. Electronically signed by: Miguel Hernandez M.D. 04/10/2019 11:40 PM PG Care Time/CCT Total # of Minutes Spent Total Time Spent with Patient: Total time spent is greater than 50% in coordination of care (as documented) at patient's floor/unit and/or counseling patient: (1) Multi-infarct dementia Dementia behavioral disturbance: with behavioral disturbance Qualified Code(s): F01.51 - Vascular dementia with behavioral disturbance
--- NOTE | 2019-04-11 14:34 | Family Medicine Progress Note ---
Date of Service April 11, 2019 Assessment & Plan (1) Closed fracture of right hip: 73-year-old female was admitted on 07 April 2019 for a right femoral head neck fracture following a fall. Closed impacted right femoral head neck fracture, fall, suspected osteoporosis: Details of fall are unclear. Underwent arthroplasty on 03Sep. See related orthopedic notes with mobilization recommendations. Due to concerns for osteoporosis, given single dose of vitamin D. Pending DEXA scan around June 2019 per . Altered mental status, acute CVA: Following an episode of "word salad" and mild left-sided facial droop worse than prior on 06Sep, acute CT head and MRI brain notes bilateral cerebellar hypodensities consistent with subacute infarct as well as concerns for embolic phenomena. Already on atorvastatin. Resumed Plavix postoperatively. Discussed case with neurology (see related note). Concern for wide distribution caused by embolic phenomenon versus transient anemic event in the perioperative period. - Did not order a repeat CTA head and neck given previous scan in September 2018 noting "widely patent" aortic arch and proximal great vessels. - Ordered a transesophageal echo. Check a fasting lipid panel in the morning. PT and OT already ordered. Will add speech therapy consult. Delirium, AMS, reported underlying vascular dementia: Prior to above acute mental status changes, her ongoing mental status issues thought to be related to delirium as well as recent anesthesia and narcotic pain medication. Acute blood loss, iron deficiency anemia: Hb as low as 5.9 postop. Received two units of PRBCs on 05Sep. Since improved to 9s. Monitoring. Hypokalemia: As low as K 3.2. Replaced. Continue home potassium twice daily. Ongoing medical issues: - CVA: Right periventricular region in September 2018. - Hypertension, hyperlipidemia: On lisinopril, atorvastatin. - GERD: Continue home pantoprazole. - Breast cancer: History of lumpectomy in 1999. - Depression, anxiety: Continue home duloxetine and Lexapro. Stopped home Ambien due to lethargy. - Chronic back pain, degenerative disc disease, osteoarthritis: Followed by pain management. On Toradol as needed here. - Constipation: On Colace and MiraLAX. Code status: DNR/DNI. Diet: Regular. DVT prophy: SCDs. Holding chemical anticoagulation due to concern for worsening CVA. PT/OT: Ongoing. Disbo: Admitted to [facility]. Case management following. Plan for discharge to [facility]. Referral placed. (2) Fall: (3) Altered mental status: (4) Acute CVA (cerebrovascular accident): (5) Delirium: (6) Vascular dementia: (7) Acute blood loss anemia: (8) Iron deficiency anemia: (9) Hypokalemia: (10) Hypertension: (11) High cholesterol: (12) GERD (gastroesophageal reflux disease): (13) Breast cancer: (14) Depression: (15) Anxiety: (16) Chronic back pain: (17) Degenerative disc disease: (18) Osteoarthritis: (19) Constipation: Supervising Physician Co-Signing Physician Notes Resident Physician Supervision Note: I independently interviewed and examined the patient and verified the friedman history and physical, reviewed labs and image studies, discussed the case with the resident Dr. Garrett and agree with the findings and care plan. Subjective Spoke with patient and her earlier this morning at bedside. Both state that her episode of expressive aphasia acutely yesterday afternoon has completely resolved. At present, patient denies any specific complaints but does say that the foam between her legs regarding her hip surgery is at times uncomfortable. She denies any present difficulty with speech, headache, vision, or focal extremity concerns. Review of Systems Review of Systems: ROS per HPI. Physical Exam Physical Exam: General Appearance: Awake, alert & oriented, comfortable in general, NAD. Knows her name, date, location, why she is here, as well as some of the upcoming [employer] schedule. CV: +S1S2 RRR, no murmur. Pulm: Clear to auscultation throughout. Abdomen: +BS, soft, non-tender, non-distended. Moving all extremities spontaneously. Extremities: No pedal edema or calf tenderness. Neuro: Mild right facial droop. Left upper extremity 4/5 strength and right upper extremity 5/5 strength. No obvious expressive aphasia. Results & Data Vital Signs (Past 12 Hours) Vital Signs Temp Pulse Pulse Resp BP Pulse Ox Pulse Ox 04/11/19 12:02 36.7 C 102 H 18 159/74 H 95 04/11/19 08:00 83 94 04/11/19 07:40 36.6 C 81 20 159/79 H 92 04/11/19 02:54 36.9 C 85 19 144/82 H 96 Laboratory Results 04/11/19 04/11/19 04/10/19 Range/Units 08:23 08:23 15:54 WBC 8.47 (4.8-10.8) K/uL RBC 3.01 L (4.2-5.4) M/uL Hgb 8.1 L (12.0-16.0) g/dL Hct 24.8 L (37-47) % MCV 82.4 (80-100) fL MCH 26.9 (25-34) pg MCHC 32.7 (32-36) g/dL RDW Std Deviation 48.5 H (36.4-46.3) fL RDW Coeff of Edouard 16.1 H (11.5-14.5) % Plt Count 185 (130-400) K/uL MPV 9.9 (7.4-10.4) fL Immature Gran % (Auto) 0.2 % Neut % (Auto) 70.4 % Lymph % (Auto) 18.4 % Bacon % (Auto) 8.7 % Eos % (Auto) 2.1 % Baso % (Auto) 0.2 % Immature Gran # (Auto) 0.02 (0.00-0.02) K/uL Neut # (Auto) 5.95 (1.4-6.5) K/uL Lymph # (Auto) 1.56 (1.2-3.4) K/uL Bacon # (Auto) 0.74 H (0.11-0.59) K/uL Eos # (Auto) 0.18 (0-0.5) K/uL Baso # (Auto) 0.02 (0-0.2) K/uL Sodium 141 140 (136-145) mmol/L Potassium 3.5 3.4 L (3.5-5.1) mmol/L Chloride 108 H 106 (98-107) mmol/L Carbon Dioxide 25 27 (21-32) mmol/L Anion Gap 8.0 7.0 (3-11) BUN 14 13 (7-18) mg/dl Creatinine 0.61 0.63 (0.6-1.2) mg/dl Est Cr Clr Drug Dosing 84.1 81.4 ml/min Est GFR ( Amer) 105.0 103.9 Est GFR (Non-Af Amer) 90.6 89.6 BUN/Creatinine Ratio 22.3 H 20.6 H (10-20) Glucose 101 H 102 H (70-99) mg/dl Calcium 8.4 L 8.6 (8.5-10.1) mg/dl 04/10/19 Range/Units 15:54 WBC 10.35 (4.8-10.8) K/uL RBC 3.37 L (4.2-5.4) M/uL Hgb 9.1 L (12.0-16.0) g/dL Hct 27.9 L (37-47) % MCV 82.8 (80-100) fL MCH 27.0 (25-34) pg MCHC 32.6 (32-36) g/dL RDW Std Deviation 48.0 H (36.4-46.3) fL RDW Coeff of Edouard 16.0 H (11.5-14.5) % Plt Count 175 (130-400) K/uL MPV 10.0 (7.4-10.4) fL Immature Gran % (Auto) 0.4 % Neut % (Auto) 77.1 % Lymph % (Auto) 13.4 % Bacon % (Auto) 7.5 % Eos % (Auto) 1.4 % Baso % (Auto) 0.2 % Immature Gran # (Auto) 0.04 H (0.00-0.02) K/uL Neut # (Auto) 7.98 H (1.4-6.5) K/uL Lymph # (Auto) 1.39 (1.2-3.4) K/uL Bacon # (Auto) 0.78 H (0.11-0.59) K/uL Eos # (Auto) 0.14 (0-0.5) K/uL Baso # (Auto) 0.02 (0-0.2) K/uL Sodium (136-145) mmol/L Potassium (3.5-5.1) mmol/L Chloride (98-107) mmol/L Carbon Dioxide (21-32) mmol/L Anion Gap (3-11) BUN (7-18) mg/dl Creatinine (0.6-1.2) mg/dl Est Cr Clr Drug Dosing ml/min Est GFR ( Amer) Est GFR (Non-Af Amer) BUN/Creatinine Ratio (10-20) Glucose (70-99) mg/dl Calcium (8.5-10.1) mg/dl Medications Administered Current Inpatient Medications Acetaminophen (Tylenol) 1,000 mg PO Q8H [facility] Stop: 05/08/19 19:59 Last Admin: 04/11/19 12:44 Dose: 1,000 mg Documented by: Atorvastatin Calcium (Lipitor) 80 mg PO QAM [facility] Stop: 05/07/19 08:59 Last Admin: 04/11/19 09:05 Dose: 80 mg Documented by: Bisacodyl (Dulcolax) 10 mg IN DAILY PRN PRN Reason: Constipation Stop: 05/07/19 19:43 [facility]id[facility]) [facility] Stop: 05/08/19 08:59 Last Admin: 04/11/19 09:04 Dose: 75 mg Documented by: Cyanocobalamin (Vitamin B-12) 1,000 [facility]cg [facility] Stop: 05/07/19 08:59 Last Admin: 04/11/19 09:16 Dose: 1,000 mcg Documented by: Docusate Sodium (Colace) 100 mg PO BID [facility] Stop: 05/07/19 08:59 Last Admin: 04/11/19 09:26 Dose: 100 mg Documented by: Duloxetine HCl (Cymbalta) 20 mg PO BID [facility] Stop: 05/07/19 08:59 Last Admin: 04/11/19 09:06 Dose: 20 mg Documented by: Enoxaparin Sodium (Lovenox) 40 mg SQ QAM [facility] Stop: 05/08/19 08:59 Last Admin: 04/11/19 09:07 Dose: 40 mg Documented by: Ergocalciferol (Vitamin D2) 50,000 units PO Mo@0900 [facility] Stop: 05/13/19 08:59 Escitalopram Oxalate (Lexapro Tab) [facility] Stop: 05/07/19 08:59 Last Admin: 04/11/19 09:05 Dose: 10 mg Documented by: Fluticasone Propionate (Flonase) 1 sprays NA DAILY PRN PRN Reason: SINUS CONGESTION Stop: 05/07/19 05:31 Lactated Ringer's (Lr) 1,000 mls @ 100 mls/hr IV .Q10H [facility] Stop: 04/11/19 14:36 Last Infusion: 04/11/19 12:44 Dose: Infused Documented by: Ketorolac Tromethamine (Toradol) 15 mg IV Q6H PRN PRN Reason: Pain Stop: 04/15/19 23:20 Last Admin: 04/10/19 23:47 Dose: 15 mg Documented by: Magnesium Hydroxide (Milk Of Magnesia) 30 ml PO DAILY PRN PRN Reason: Constipation Stop: 05/07/19 19:43 Last Admin: 04/10/19 19:49 Dose: 30 ml Documented by: Ondansetron HCl (Zofran) 4 mg IV Q6H PRN PRN Reason: Nausea Stop: 05/07/19 05:31 Last Admin: 04/08/19 20:23 Dose: 4 mg Documented by: Pantoprazole Sodium (Protonix) 40 mg PO QAM [facility] Stop: 05/07/19 08:59 Last Admin: 04/11/19 09:05 Dose: 40 mg Documented by: Potassium Chloride (Klor-Con M20) 20 meq PO BID [facility] Stop: 05/11/19 08:59 Last Admin: 04/11/19 09:26 Dose: 20 meq Documented by: Vitamin D (Vitamin D3) 2,000 units PO QAM [facility] Stop: 05/09/19 08:59 Last Admin: 04/11/19 09:04 Dose: 2,000 units Documented by: PG Care Time/CCT Total # of Minutes Spent Total Time Spent with Patient: Total time spent is greater than 50% in coordination of care (as documented) at patient's floor/unit and/or counseling patient: Resident Activity Tracking Resident Involvement: Resident Care Provided Care Provided: Adult Hospital Medicine (1) Hypertension Hypertension type: essential hypertension Qualified Code(s): I10 - Essential (primary) hypertension (2) Fall Encounter type: initial encounter Qualified Code(s): W19.XXXA - Unspecified fall, initial encounter (3) Closed fracture of right hip Encounter type: initial encounter Qualified Code(s): S72.001A - Fracture of unspecified part of neck of right femur, initial encounter for closed fracture
--- NOTE | 2019-04-11 18:01 | CT Scan Report ---
CT head/brain wo con CLINICAL HISTORY: Left visual field deficit. Change in mental status. COMPARISON STUDY: 04/10/2019 TECHNIQUE: Axial CT of the brain is performed from the vertex to the skull base. IV contrast was not administered for this examination. A dose lowering technique was utilized adhering to the principles of ALARA. CT DOSE: 773.57 mGy.cm FINDINGS: There are large bilateral cerebellar infarcts. There is no evidence of acute hemorrhage. There is no evidence of midline shift. No calvarial fractures are visualized. There are moderate white matter hypodensities likely on a small vessel basis. There are multiple scat tered lacunar infarcts in the basal ganglia regions. There is mild ventricular dilatation likely secondary to volume loss. There is no evidence of acute sinusitis IMPRESSION: 1. Large bilateral acute/subacute cerebellar infarcts 2. No evidence of acute hemorrhage Electronically signed by: Franc Mims M.D. 04/11/2019 6:00 PM
[2019-04-11] MEDS ORDERED: ONDANSETRON INJ 2 MG/ML 2 ML VIAL IV PRN (18:06)
[2019-04-11] MEDS ORDERED: METOPROLOL TARTRATE 1 MG/ML VIAL IV ONE (18:20)
[2019-04-12] MEDS: ACETAMINOPHEN 500 MG TAB PO SCH ×3 (04:08→19:50)
[2019-04-12 07:40] LABS: Hematocrit (blood only) 25.8 % (37-47); Hemoglobin 8.3 g/dL (12.0-16.0); Mean Corpuscular Hgb Conc 32.2 g/dL (32-36); Mean Corpuscular Volume 82.4 fL (80-100); Mean Platelet Volume 9.2 fL (7.4-10.4); Platelet Count 205 K/uL (130-400); RDW Coefficient of Variation 16.4 % (11.5-14.5); RDW Standard Deviation 49.4 fL (36.4-46.3); Red Blood Count 3.13 M/uL (4.2-5.4); White Blood Count 7.68 K/uL (4.8-10.8)
[2019-04-12] MEDS: ONDANSETRON INJ 2 MG/ML 2 ML VIAL IV PRN (07:46)
[2019-04-12] MEDS: POTASSIUM CHLORIDE 20 MEQ TABCR PO SCH ×2 (08:07→21:13)
[2019-04-12] MEDS: CYANOCOBALAMIN 500 MCG TABLET (VITAMIN B-12) PO SCH (08:08)
[2019-04-12] MEDS: PANTOprazole 40 MG TAB PO SCH (08:08)
[2019-04-12] MEDS: CLOPIDOGREL BISULFATE 75 MG TAB PO SCH (08:08)
[2019-04-12] MEDS: CHOLECALCIFEROL 1,000 UNITS TAB PO SCH (08:08)
[2019-04-12] MEDS: ESCITALOPRAM OXALATE 10 MG TAB PO SCH (08:08)
[2019-04-12 08:09] LABS: BUN Creatinine Ratio 21.5 (10-20); Calcium 8.6 mg/dl (8.5-10.1); Creatinine Clr Calc Pharmacy 122.1 ml/min; Est GFR (African American) 118.7; Est GFR (Non-African American) 102.4; Potassium 3.6 mmol/L (3.5-5.1)
[2019-04-12] MEDS: DULOXETINE HCL 20 MG CAP PO SCH ×2 (08:10→21:12)
[2019-04-12] MEDS: ATORVASTATIN 40 MG TAB PO SCH (08:10)
[2019-04-12] MEDS: DOCUSATE SODIUM 100 MG CAP PO SCH ×2 (08:14→21:13)
[2019-04-12] MEDS ORDERED: METOPROLOL TARTRATE 25 MG TAB PO ONE (09:00)
--- NOTE | 2019-04-12 11:06 | Neurology Progress Note ---
Date of Service April 12, 2019 Assessment & Plan (1) Acute CVA (cerebrovascular accident): (2) Acute encephalopathy: (3) Acute left-sided weakness: (4) Multi-infarct dementia: Patient has multiple embolic strokes with a large left cerebellar hemispheric stroke and medium size right cerebellar hemispheric stroke. There are multiple tiny strokes scattered right greater than left side and different vascular distributions. All of this is consistent with embolic stroke. The timing of the strokes are not readily apparent. I am not convinced that all of her strokes occurred in the afternoon of April 10. They may have actually started perioperatively. She had acute encephalopathy and other problems immediately postop. There is no evidence of encephalopathy today. She had profound anemia requiring transfusion and her hemoglobin is much improved today. This could have been a risk factor for stroke also, although the MRI did not show watershed infarcts. Interestingly, in September of 2018 CT angiography of the head neck were unremarkable and echocardiogram was unremarkable as well. These embolic strokes would have to come from a proximal vessel such as the aortic arch or the heart itself. On exam she has some weakness and upper motor neuron signs in the left arm and leg. She does not have any specific aphasia or dysarthria like yesterday. There is some ataxia of the left upper extremity which would fit with the left cerebellar hemisphere stroke. There is some history of having underlying vascular dementia. If this is true then she could easily be tipped into a delirium from a number of different issues including anemia, medications, or the surgery itself. She does have old small vessel ischemic disease of a mild to moderate nature seen on MRI. Recommendations: 1. Consider TTE 2. Consider repeat CT angiography of the aortic arch and larger vessels into the head 3. Continue Plavix for now as this is helping her small vessel ischemic disease for which she has a risk. 4. Hold on anticoagulation for now until a sources identified. For now, she is using Lovenox. Aggressive anticoagulation could turn her current strokes into hemorrhagic transformation. 5. Increase activity as able. 6. Control blood pressure as you are doing aiming for a mean arterial pressure between 95 and 100. 7. She is a high dose statin candidate and is on atorvastatin 80 milligrams each day. Her lipid levels are quite good. 8. She will need PT, OT, and speech therapy consults for evaluation and treatment. Overall, I spent a total 35 minutes with this case including review of records, review of MRI films, direct evaluation the patient bedside, and discussion of the case with the patient at bedside, her spouse who was at bedside, and Dr. Gracia, including differential diagnosis and treatment options. Subjective Doing a little bit better today and is more alert. The , who is present at bedside, concurs. She slept very well last night. There was a little nausea this morning but this was improved. Her vision is about the same. She has no pain or headache and is not dizzy. She feels that her arms and legs of the same and she has no right hip pain. She is very tired. Blood pressure is 154/97. This morning, hemoglobin is 8.3 and hematocrit 25.8. Triglycerides were 104, total cholesterol 123, LDL 67. Hemoglobin A1c was 6.0. Physical Exam Physical Exam: She is awake and alert. Speech is without aphasia or dysarthria. Mood seems reasonable and affect is appropriate. She is answering questions fairly well. Extraocular eye muscles are intact without nystagmus. She seems to see fairly well with her vision bilaterally. There is no facial droop but there is some asymmetry on the right (which was old). She does not have the ataxia of the left upper extremity today that she did yesterday. There is no tremor and strength is symmetrical and 4+/5 in the arms bilaterally. Leg strength is 4/5 bilaterally with the left tibialis anterior being 4+/5 and the right being 3/5. Results & Data Vital Signs (Past 12 Hours) Vital Signs Temp Pulse Pulse Resp BP Pulse Ox 04/12/19 08:00 36.9 C 82 16 154/97 H 93 04/12/19 03:37 36.7 C 81 20 171/93 H 96 04/12/19 00:00 78 04/11/19 23:36 36.8 C 83 19 154/93 H 92 PG Care Time/CCT Total # of Minutes Spent Total Time Spent with Patient: Total time spent is greater than 50% in coordination of care (as documented) at patient's floor/unit and/or counseling patient: (1) Multi-infarct dementia Dementia behavioral disturbance: with behavioral disturbance Qualified Code(s): F01.51 - Vascular dementia with behavioral disturbance
--- NOTE | 2019-04-12 11:55 | Family Medicine Progress Note ---
Date of Service April 12, 2019 Assessment & Plan (1) Closed fracture of right hip: 73-year-old female was admitted on 07 April 2019 for a right femoral head neck fracture following a fall. Closed impacted right femoral head neck fracture, fall, suspected osteoporosis: Details of fall are unclear. Underwent arthroplasty on Se. See related orthopedic notes with mobilization recommendations. Due to concerns for osteoporosis, given single dose of vitamin D. Pending DEXA scan around June 2019 per . Acute CVA, delirium, reported underlying vascular dementia: 06Sep PM suffered acute likely embolic stroke primarily of the cerebellum. See multiple CT and MR I scans. Continued waxing/waning mental status with delirium significantly contributing. See neurology notes. Concern for wide distribution caused by embolic phenomenon versus transient anemic event in the perioperative period. - Transesophageal echo pending. PT ongoing. Speech therapy consult pending. - Per [place] [id number]. We will monitor to treat her blood pressure and provide as needed doses of metoprolol. Acute blood loss, iron deficiency anemia: Hb as low as 5.9 postop. Received two units of PRBCs on Sep. Since improved to 9s. Unclear if this acute anemia contributed to her above CVA. Hypokalemia: As low as K 3.2. Replaced. Continue home potassium twice daily. 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 - Hypertension, hyperlipidemia: On lisinopril, atorvastatin. - GERD: Continue home pantoprazole. - Breast cancer: History of lumpectomy in 1999. - Depression, anxiety: Continue home duloxetine and Lexapro. Stopped home Ambien due to lethargy. - Chronic back pain, degenerative disc disease, osteoarthritis: Followed by pain management. On Toradol as needed here. - Constipation: On Colace and MiraLAX. Also prune juice. Code status: DNR/DNI. Diet: Regular. DVT prophy: SCDs. Holding chemical anticoagulation due to concern for worsening CVA. PT/OT: Ongoing. Disbo: Admitted to [facility]. Case management following. Plan for discharge to [facility]. Referral placed. (2) Fall: (3) Altered mental status: (4) Acute CVA (cerebrovascular accident): (5) Delirium: (6) Vascular dementia: (7) Acute blood loss anemia: (8) Iron deficiency anemia: (9) Hypokalemia: (10) Hypertension: (11) High cholesterol: (12) GERD (gastroesophageal reflux disease): (13) Breast cancer: (14) Depression: (15) Anxiety: (16) Chronic back pain: (17) Degenerative disc disease: (18) Osteoarthritis: (19) Constipation: Supervising Physician Co-Signing Physician Notes Resident Physician Supervision Note: I independently interviewed and examined the patient and verified the friedman history and physical, reviewed labs and image studies, discussed the case with the resident Dr. Garrett and agree with the findings and care plan. Subjective Found patient sitting in her bedside chair. Overall she said she had no particular concerns but continued to be pleasantly groaning that she has to drink her prune juice to help with some constipation. She notes some associated nausea with this. She denies any headache, extremity or head pains, or other acute concerns. Her is at bedside as well. He says that overall she got quite a bit more sleep overnight. No noted overnight events. Review of Systems Review of Systems: ROS per HPI. Physical Exam Physical Exam: General Appearance: Awake, sitting in her bedside chair, comfortable in general, NAD. Knows her name, date, location, why she is here. However, she does not recall the overall treatment plan and asks when she will be able to go CV: +S1S2 RRR, no murmur. Pulm: Clear to auscultation throughout. Abdomen: +BS, soft, non-tender, non-distended. Moving all extremities spontaneously. Extremities: No pedal edema or calf tenderness. Neuro: Mild right facial droop. Left upper extremity 4/5 strength and right upper extremity 5/5 strength. No obvious expressive aphasia. [No significant change from exam yesterday]. Results & Data Vital Signs (Past 12 Hours) Vital Signs Temp Pulse Pulse Resp BP Pulse Ox 04/12/19 08:00 36.9 C 82 82 16 154/97 H 93 04/12/19 03:37 36.7 C 81 20 171/93 H 96 04/12/19 00:00 78 Laboratory Results 04/12/19 04/12/19 Range/Units 07:32 07:32 WBC 7.68 (4.8-10.8) K/uL RBC 3.13 L (4.2-5.4) M/uL Hgb 8.3 L (12.0-16.0) g/dL Hct 25.8 L (37-47) % MCV 82.4 (80-100) fL MCH 26.5 (25-34) pg MCHC 32.2 (32-36) g/dL RDW Std Deviation 49.4 H (36.4-46.3) fL RDW Coeff of Edouard 16.4 H (11.5-14.5) % Plt Count 205 (130-400) K/uL MPV 9.2 (7.4-10.4) fL Sodium 140 (136-145) mmol/L Potassium 3.6 (3.5-5.1) mmol/L Chloride 109 H (98-107) mmol/L Carbon Dioxide 25 (21-32) mmol/L Anion Gap 6.0 (3-11) BUN 9 D (7-18) mg/dl Creatinine 0.42 L (0.6-1.2) mg/dl Est Cr Clr Drug Dosing 122.1 ml/min Est GFR ( Amer) 118.7 Est GFR (Non-Af Amer) 102.4 BUN/Creatinine Ratio 21.5 H (10-20) Glucose 97 (70-99) mg/dl Calcium 8.6 (8.5-10.1) mg/dl Triglycerides 104 (0-150) mg/dl Cholesterol 123 (0-200) mg/dl LDL Cholesterol, Calc 67 mg/dl VLDL Cholesterol, Calc 21 mg/dl HDL Cholesterol 35 mg/dl Cholesterol/HDL Ratio 4 Medications Administered Current Inpatient Medications Acetaminophen (Tylenol) 1,000 mg PO Q8H [facility] Stop: 05/08/19 19:59 Last Admin: 04/12/19 04:08 Dose: 1,000 mg Documented by: Atorvastatin Calcium (Lipitor) [facility] Stop: 05/07/19 08:59 Last Admin: 04/12/19 08:10 Dose: 80 mg Documented by: Bisacodyl (Dulcolax) 10 mg MD DAILY PRN PRN Reason: Constipation Stop: 05/07/19 19:43 Clopidogrel Bisulfate (Plavix) 75 mg [facility] Stop: 05/08/19 08:59 Last Admin: 04/12/19 08:08 Dose: 75 mg Documented by: Cyanocobalamin (Vitamin B-12) 1,000 mcg PO QAM [facility] Stop: 05/07/19 08:59 Last Admin: 04/12/19 08:08 Dose: 1,000 mcg Documented by: Docusate Sodium (Colace) 100 mg PO BID [facility] Stop: 05/07/19 08:59 Last Admin: 04/12/19 08:14 Dose: 100 mg Documented by: Duloxetine HCl (Cymbalta) 20 mg PO BID [facility] Stop: 05/07/19 08:59 Last Admin: 04/12/19 08:10 Dose: 20 mg Documented by: Enoxaparin Sodium (Lovenox) 40 [facility] SQ [facility] Stop: 05/08/19 08:59 Last Admin: 04/11/19 09:07 Dose: 40 mg Documented by: Ergocalciferol (Vitamin D2) 50,000 units PO Mo@0900 [facility] Stop: 05/13/19 08:59 Escitalopram Oxalate (Lexapro Tab) 10 mg [facility] Stop: 05/07/19 08:59 Last Admin: 04/12/19 08:08 Dose: 10 mg Documented by: Fluticasone Propionate (Flonase) 1 sprays NA DAILY PRN PRN Reason: SINUS CONGESTION Stop: 05/07/19 05:31 Ketorolac Tromethamine (Toradol) 15 mg IV Q6H PRN PRN Reason: Pain Stop: 04/15/19 23:20 Last Admin: 04/10/19 23:47 Dose: 15 mg Documented by: Magnesium Hydroxide (Milk Of Magnesia) 30 ml PO DAILY PRN PRN Reason: Constipation Stop: 05/07/19 19:43 Last Admin: 04/10/19 19:49 Dose: 30 ml Documented by: Ondansetron HCl (Zofran) 4 mg IV Q6H PRN PRN Reason: Nausea Stop: 05/07/19 05:31 Last Admin: 04/12/19 07:46 Dose: 4 mg Documented by: Ondansetron HCl (Zofran) 4 mg IV Q6H PRN PRN Reason: Nausea Stop: 05/11/19 18:14 Pantoprazole Sodium (Protonix) 40 mg [facility] Stop: 05/07/19 08:59 Last Admin: 04/12/19 08:08 Dose: 40 mg Documented by: Potassium Chloride (Klor-Con M20) 20 meq PO BID [facility] Stop: 05/11/19 08:59 Last Admin: 04/12/19 08:07 Dose: 20 meq Documented by: Vitamin D (Vitamin D3) 2,000 units PO QAM [facility] Stop: 05/09/19 08:59 Last Admin: 04/12/19 08:08 Dose: 2,000 units Documented by: PG Care Time/CCT Total # of Minutes Spent Total Time Spent with Patient: Total time spent is greater than 50% in coordination of care (as documented) at patient's floor/unit and/or counseling patient: Resident Activity Tracking Resident Involvement: Resident Care Provided Care Provided: Adult Hospital Medicine (1) Hypertension Hypertension type: essential hypertension Qualified Code(s): I10 - Essential (primary) hypertension (2) Fall Encounter type: initial encounter Qualified Code(s): W19.XXXA - Unspecified fall, initial encounter (3) Closed fracture of right hip Encounter type: initial encounter Qualified Code(s): S72.001A - Fracture of unspecified part of neck of right femur, initial encounter for closed fracture
--- NOTE | 2019-04-12 12:46 | Progress Note ---
DATE: 04/12/2019 SUBJECTIVE: This is a 73-year-old female with multiple medical comorbidities, now 5 days out from a right cemented bipolar hip arthroplasty for fracture. She seems to be doing better today. She denies any pain. She really wants to go home. OBJECTIVE: VITAL SIGNS: Temperature is 36.9. Vital signs stable. Has had some intermittent hypertension. GENERAL: Physical examination shows a pleasant, awake, alert female, who is sitting in her bedside chair, talking to her . EXTREMITIES: Examination of the right hip reveals the dressing to be clean, dry and intact. Some mild thigh swelling. The hip is located. Leg lengths are equal. She is neurologically intact. LABORATORY DATA: Hemoglobin 8.3. Hematocrit 25.8. Her electrolytes are stable. ASSESSMENT: A 73-year-old female with multiple medical comorbidities, 5 days out from right cemented bipolar hip arthroplasty for fracture, doing reasonably well. She did apparently have some degree of cerebellar stroke and I do agree with Dr. Salcido that probably some of this may have happen actually beforehand. Clinically, she looks better now than she did before surgery. Her pain is controlled. Hip is located. PLAN: 1. DVT prophylaxis including thigh-high TEDs, SCDs and she is on Plavix. Also, on Lovenox currently. From the orthopedic standpoint, she does seem to be on TEDs, SCDs and her Plavix. 2. PT/OT Right Total Hip Protocol WBAT. Total Hip Precautions. 3. Disposition: She is orthopedically okay for discharge any time medically stable. I need to see her back 2 weeks out from her surgery date. Any orthopedic questions can be directed to me at [phone]. [facility]
[2019-04-12] MEDS: KETOROLAC TROMETHAMINE 15 MG/ML VIAL IV PRN ×2 (16:19→22:10)
[2019-04-13] MEDS: ACETAMINOPHEN 500 MG TAB PO SCH ×3 (04:00→19:11)
--- NOTE | 2019-04-13 06:53 | Family Medicine Progress Note ---
Date of Service April 13, 2019 Assessment & Plan (1) Closed fracture of right hip: 73-year-old female was admitted on 07 April 2019 for a right femoral head neck fracture following a fall. Closed impacted right femoral head neck fracture, fall, suspected osteoporosis: Details of fall are unclear. Underwent arthroplasty on Sep. See related orthopedic notes with mobilization recommendations. Due to concerns for osteoporosis, given single dose of vitamin D. Pending DEXA scan around June 2019 per . AMS, acute CVA, delirium, reported underlying vascular dementia: 06Sep PM suffered acute likely embolic stroke primarily of the cerebellum. See multiple CT and MRI scans. Continued waxing/waning mental status with delirium significantly contributing. See neurology notes. Concern for wide distribution caused by embolic phenomenon versus transient anemic event in the perioperative period. - Transesophageal echo today. PT ongoing. Speech therapy consult placed. - [place] [id number]. We will monitor to treat her blood pressure and provide as needed doses of metoprolol. Acute blood loss, iron deficiency anemia: Hb as low as 5.9 postop. Received two units of PRBCs on 05Sep. Since improved to 9s. Unclear if this acute anemia contributed to her above CVA. Hypokalemia: As low as K 3.2. Replaced. Continue home potassium twice daily. 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 - Hypertension, hyperlipidemia: On lisinopril, atorvastatin. - GERD: Continue home pantoprazole. - Breast cancer: History of lumpectomy in 1999. - Depression, anxiety: Continue home duloxetine and Lexapro. Stopped home Ambien due to lethargy. - Chronic back pain, degenerative disc disease, osteoarthritis: Followed by pain management. On Toradol as needed here. - Constipation: On Colace and MiraLAX. Also prune juice. Code status: DNR/DNI. Diet: Regular. DVT prophy: SCDs. Holding chemical anticoagulation due to concern for worsening CVA. PT/OT: Ongoing. Disbo: Admitted to [facility]. Case management following. Plan for discharge to [facility]. Referral placed and accepted, pending discharge. (2) Fall: (3) Altered mental status: (4) Acute CVA (cerebrovascular accident): (5) Delirium: (6) Vascular dementia: (7) Acute blood loss anemia: (8) Iron deficiency anemia: (9) Hypokalemia: (10) Hypertension: (11) High cholesterol: (12) GERD (gastroesophageal reflux disease): (13) Breast cancer: (14) Depression: (15) Anxiety: (16) Chronic back pain: (17) Degenerative disc disease: (18) Osteoarthritis: (19) Constipation: Supervising Physician Co-Signing Physician Notes Attending attestation Pt seen and examined in concert with Dr. Avilez. In agreement with the documented findings as noted in the resident documentation with any exceptions or additions as noted here. Pain well controlled with present pain regimen at rest. Eager for discharge. On examination, S1/S2 nl, no MCG. CTAB. Abd NT/ND BS+ve CVA w/ underlying vascular dementia, h/o CVA - Neurology consultation appreciated. f/u HAYLIE, PT/OT/ST. Monitor BP w/ MAP goal of ~100 Anemia, iron deficiency w/ blood loss s/p 2 UPRBC - monitor H/H daily Dispo: [facility] has accepted and awaits transfer. Else see resident documentation as noted. Subjective Caveat: History limited by AMS. Magui notes she is in no acute pain this morning. She notes her stomach feels better less growling, denies prior pain. Spouse Bill is at bedside. He notes history of constipation from chronic opioid use for low back pain. Spouse notes patient has dizziness with elevation of head of bed that is transiant. This is improved with time and also improved with laying in more reclined position. Denies shortness of breath, chest pain. Review of Systems Review of Systems: All systems reviewed & are unremarkable except as noted in HPI & below Physical Exam Constitutional: WD/WN, vitals as above cooperative and comfortable Eyes: EOM intact bilaterally ENMT: external ear and nose normal, oropharynx normal Neck: normal visual inspection and trachea midline Respiratory: normal respiratory effort, lungs clear to auscultation Cardiovascular: Rate/Rhythm: regular rate and regular rhythm Gastrointestinal (Abdomen): Percussion/Palpation: abdomen soft; abdomen nontender Musculoskeletal: Spine: normal cervical lordosis bilateral lower extremities neurovascularly intact Skin: no rashes, warm and dry Neurologic: moves all extremities and awake Psychiatric: Orientation: alert, oriented to person and cooperative; + not oriented to place ([address], but knew she was in a hospital) and + not oriented to time (She was oriented to year, but thought president was Erik Barraza) Eye Contact: good eye contact Affect: + flat affect Results & Data Vital Signs (Past 12 Hours) Vital Signs Temp Pulse Pulse Resp BP Pulse Ox 04/13/19 03:53 36.6 C 82 20 147/81 H 92 04/13/19 01:02 36.4 C L 77 18 166/86 H 94 04/12/19 23:24 92 H 04/12/19 19:09 36.6 C 80 19 127/75 99 Medications Administered Laboratory Results - last 24 hr 04/12/19 07:32 Sodium 140 Potassium 3.6 Chloride 109 H Carbon Dioxide 25 Anion Gap 6.0 BUN 9 D Creatinine 0.42 L Est Cr Clr Drug Dosing 122.1 Est GFR ( Amer) 118.7 Est GFR (Non-Af Amer) 102.4 BUN/Creatinine Ratio 21.5 H Glucose 97 Calcium 8.6 Triglycerides 104 Cholesterol 123 LDL Cholesterol, Calc 67 VLDL Cholesterol, Calc 21 HDL Cholesterol 35 Cholesterol/HDL Ratio 4 Acetaminophen (Tylenol) 1,000 mg PO Q8H [facility] Stop: 05/08/19 19:59 Last Admin: 04/13/19 04:00 Dose: 1,000 mg Documented by: [id number] Admin: 04/12/19 19:50 Dose: 1,000 mg Documented by: [id number] Admin: 04/12/19 13:37 Dose: 1,000 mg Documented by: [id number] Admin: 04/12/19 04:08 Dose: 1,000 mg Documented by: [id number] Admin: 04/11/19 19:48 Dose: 1,000 mg Documented by: [id number] Admin: 04/11/19 12:44 Dose: 1,000 mg Documented by: [id number] Admin: 04/11/19 03:46 Dose: 1,000 mg Documented by: [id number] Admin: 04/10/19 19:50 Dose: 1,000 mg Documented by: [id number] Admin: 04/10/19 12:07 Dose: 1,000 mg Documented by: [id number] Cosigned by: [id number] Admin: 04/10/19 03:48 Dose: 1,000 mg Documented by: [id number] Admin: 04/09/19 21:08 Dose: 1,000 mg Documented by: [id number] Admin: 04/09/19 11:56 Dose: 1,000 mg Documented by: [id number] Admin: 04/09/19 04:57 Dose: 1,000 mg Documented by: [id number] Admin: 04/08/19 19:20 Dose: 1,000 mg Documented by: [id number] Atorvastatin Calcium (Lipitor) 80 mg PO [facility] Stop: 05/07/19 08:59 Last Admin: 04/12/19 08:10 Dose: 80 mg Documented by: [id number] Admin: 04/11/19 09:05 Dose: 80 mg Documented by: [id number] Admin: 04/10/19 08:58 Dose: 80 mg Documented by: [id number] Cosigned by: [id number] Admin: 04/09/19 08:50 Dose: 80 mg Documented by: [id number] Admin: 04/08/19 10:16 Dose: Not Given Documented by: [id number] Admin: 04/07/19 09:13 Dose: 80 mg Documented by: [id number] Clopidogrel Bisulfate (Plavix) 75 mg PO [facility] Stop: 05/08/19 08:59 Last Admin: 04/12/19 08:08 Dose: 75 mg Documented by: [id number] Admin: 04/11/19 09:04 Dose: 75 mg Documented by: [id number] Admin: 04/10/19 08:57 Dose: 75 mg Documented by: [id number] Cosigned by: [id number] Admin: 04/09/19 08:50 Dose: 75 mg Documented by: [id number] Admin: 04/08/19 10:16 Dose: Not Given Documented by: [id number] Cyanocobalamin (Vitamin B-12) 1,000 mcg PO [facility] Stop: 05/07/19 08:59 Last Admin: 04/12/19 08:08 Dose: 1,000 mcg Documented by: [id number] Admin: 04/11/19 09:16 Dose: 1,000 mcg Documented by: [id number] Admin: 04/10/19 08:57 Dose: 1,000 mcg Documented by: [id number] Cosigned by: [id number] Admin: 04/09/19 08:50 Dose: 1,000 mcg Documented by: [id number] Admin: 04/08/19 10:16 Dose: Not Given Documented by: [id number] Admin: 04/07/19 09:13 Dose: 1,000 mcg Documented by: [id number] Docusate Sodium (Colace) 100 mg PO BID [facility] Stop: 05/07/19 08:59 Last Admin: 04/12/19 21:13 Dose: 100 mg Documented by: [id number] Admin: 04/12/19 08:14 Dose: 100 mg Documented by: [id number] Admin: 04/11/19 21:44 Dose: 100 mg Documented by: [id number] Admin: 04/11/19 09:26 Dose: 100 mg Documented by: [id number] Admin: 04/10/19 19:49 Dose: 100 mg Documented by: [id number] Admin: 04/10/19 09:03 Dose: 100 mg Documented by: [id number] Cosigned by: [id number] Admin: 04/09/19 21:14 Dose: 100 mg Documented by: [id number] Admin: 04/09/19 10:37 Dose: 100 mg Documented by: [id number] Admin: 04/08/19 20:29 Dose: Not Given Documented by: [id number] Admin: 04/08/19 10:15 Dose: Not Given Documented by: [id number] Admin: 04/07/19 22:35 Dose: Not Given Documented by: [id number] Admin: 04/07/19 09:12 Dose: 100 mg Documented by: [id number] Duloxetine HCl (Cymbalta) 20 mg PO BID [facility] Stop: 05/07/19 08:59 Last Admin: 04/12/19 21:12 Dose: 20 mg Documented by: [id number] Admin: 04/12/19 08:10 Dose: 20 mg Documented by: [id number] Admin: 04/11/19 21:44 Dose: 20 mg Documented by: [id number] Admin: 04/11/19 09:06 Dose: 20 mg Documented by: [id number] Admin: 04/10/19 19:47 Dose: 20 mg Documented by: [id number] Admin: 04/10/19 08:59 Dose: 20 mg Documented by: [id number] Cosigned by: [id number] Admin: 04/09/19 21:09 Dose: 20 mg Documented by: [id number] Admin: 04/09/19 08:49 Dose: 20 mg Documented by: [id number] Admin: 04/08/19 20:29 Dose: Not Given Documented by: [id number] Admin: 04/08/19 10:15 Dose: Not Given Documented by: [id number] Admin: 04/07/19 22:36 Dose: Not Given Documented by: [id number] Admin: 04/07/19 09:12 Dose: 20 mg Documented by: [id number] Enoxaparin Sodium (Lovenox) 40 mg SQ [facility] Stop: 05/08/19 08:59 Last Admin: 04/11/19 09:07 Dose: 40 mg Documented by: [id number] Admin: 04/10/19 08:55 Dose: 40 mg Documented by: [id number] Cosigned by: [id number] Admin: 04/09/19 08:50 Dose: 40 mg Documented by: [id number] Admin: 04/08/19 11:33 Dose: 40 mg Documented by: [id number] Escitalopram Oxalate (Lexapro Tab) 10 mg PO [facility] Stop: 05/07/19 08:59 Last Admin: 04/12/19 08:08 Dose: 10 mg Documented by: [id number] Admin: 04/11/19 09:05 Dose: 10 mg Documented by: [id number] Admin: 04/10/19 08:56 Dose: 10 mg Documented by: [id number] Cosigned by: [id number] Admin: 04/09/19 08:49 Dose: 10 mg Documented by: [id number] Admin: 04/08/19 10:16 Dose: Not Given Documented by: [id number] Admin: 04/07/19 09:12 Dose: 10 mg Documented by: [id number] Ketorolac Tromethamine (Toradol) 15 mg IV Q6H PRN PRN Reason: Pain Stop: 04/15/19 23:20 Last Admin: 04/12/19 22:10 Dose: 15 mg Documented by: [id number] Admin: 04/12/19 16:19 Dose: 15 mg Documented by: [id number] Admin: 04/10/19 23:47 Dose: 15 mg Documented by: [id number] Magnesium Hydroxide (Milk Of Magnesia) 30 ml PO DAILY PRN PRN Reason: Constipation Stop: 05/07/19 19:43 Last Admin: 04/10/19 19:49 Dose: 30 ml Documented by: [id number] Ondansetron HCl (Zofran) 4 mg IV Q6H PRN PRN Reason: Nausea Stop: 05/07/19 05:31 Last Admin: 04/12/19 07:46 Dose: 4 mg Documented by: [id number] Admin: 04/08/19 20:23 Dose: 4 mg Documented by: [id number] Pantoprazole Sodium (Protonix) 40 mg PO QAM [facility] Stop: 05/07/19 08:59 Last Admin: 04/12/19 08:08 Dose: 40 mg Documented by: [id number] Admin: 04/11/19 09:05 Dose: 40 mg Documented by: [id number] Admin: 04/10/19 08:57 Dose: 40 mg Documented by: [id number] Cosigned by: [id number] Admin: 04/09/19 08:50 Dose: 40 mg Documented by: [id number] Admin: 04/08/19 10:16 Dose: Not Given Documented by: [id number] Admin: 04/07/19 09:11 Dose: 40 mg Documented by: [id number] Potassium Chloride (Klor-Con M20) 20 meq PO BID [facility] Stop: 05/11/19 08:59 Last Admin: 04/12/19 21:13 Dose: 20 meq Documented by: [id number] Admin: 04/12/19 08:07 Dose: 20 meq Documented by: [id number] Admin: 04/11/19 21:44 Dose: 20 meq Documented by: [id number] Admin: 04/11/19 09:26 Dose: 20 meq Documented by: [id number] Vitamin D (Vitamin D3) 2,000 units PO QAM [facility] Stop: 05/09/19 08:59 Last Admin: 04/12/19 08:08 Dose: 2,000 units Documented by: [id number] Admin: 04/11/19 09:04 Dose: 2,000 units Documented by: [id number] Admin: 04/10/19 08:58 Dose: 2,000 units Documented by: [id number] Cosigned by: [id number] Admin: 04/09/19 10:37 Dose: 2,000 units Documented by: [id number] PG Care Time/CCT Total # of Minutes Spent Total Time Spent with Patient: Total time spent is greater than 50% in coordination of care (as documented) at patient's floor/unit and/or counseling patient: Resident Activity Tracking Resident Involvement: Resident Care Provided Care Provided: Adult Hospital Medicine (1) Hypertension Hypertension type: essential hypertension Qualified Code(s): I10 - Essential (primary) hypertension (2) Fall Encounter type: initial encounter Qualified Code(s): W19.XXXA - Unspecified fall, initial encounter (3) Closed fracture of right hip Encounter type: initial encounter Qualified Code(s): S72.001A - Fracture of unspecified part of neck of right femur, initial encounter for closed fracture
[2019-04-13] MEDS ORDERED: ERGOCALCIFEROL 50,000 UNITS CAP PO SCH (09:00)
--- NOTE | 2019-04-13 09:08 | Progress Note ---
DATE: 04/13/2019 SUBJECTIVE: A 74-year-old female postop day 6 from a right cemented bipolar hip arthroplasty for fracture. She had a postoperative stroke which may have occurred some even beforehand. She seems to be doing better daily. No new complaints. Denies any pain. PHYSICAL EXAMINATION: GENERAL: Physical examination shows a pleasant elderly female. She is lying in bed. She is awake, alert and appropriate. EXTREMITIES: Examination of the right hip reveals the dressing to be clean, dry and intact. No significant drainage. Swelling is improved. Hip is located. She is neurologically intact. LABORATORY DATA: Pending. ASSESSMENT: A 74-year-old female postop day 6 from a right cemented bipolar hip arthroplasty for fracture with a perioperative stroke with some sort. Orthopedically, she seems to be stable. She seems to be improving daily. Her pain is controlled. Hip is located. PLAN: 1. DVT prophylaxis including thigh-high TEDs, SCDs, and she is on Plavix. Also, currently on Lovenox. From the orthopedic standpoint, the TEDs, SCDs, and Plavix would be adequate. 2. PT/OT. The patient weightbear as tolerated. Needs to obey hip precautions. 3. Medical management as per the medicine service. 4. Disposition: She is orthopedically okay for discharge any time. I need to see her back about 2 weeks out from her surgery date. Any orthopedic questions can be directed to me at [phone].
[2019-04-13] MEDS: KETOROLAC TROMETHAMINE 15 MG/ML VIAL IV PRN ×2 (09:53→17:58)
[2019-04-13] MEDS ORDERED: Nursing to Pharmacy Communication ONE (10:38)
[2019-04-13] MEDS: DULOXETINE HCL 20 MG CAP PO SCH ×2 (10:48→20:48)
[2019-04-13] MEDS: POTASSIUM CHLORIDE 20 MEQ TABCR PO SCH ×2 (10:48→20:48)
--- NOTE | 2019-04-13 12:05 | Pre Anesthesia Assessment ---
Date of Service April 13, 2019 Pre Sedation Assessment Vital Signs Temp Pulse Pulse Resp BP Pulse Ox 04/13/19 11:22 36.8 C 84 20 153/61 H 96 04/13/19 07:35 37.2 C 87 18 146/76 H 96 04/13/19 03:53 36.6 C 82 20 147/81 H 92 04/13/19 01:02 36.4 C L 77 18 166/86 H 94 04/12/19 23:24 92 H 04/12/19 19:09 36.6 C 80 19 127/75 99 04/12/19 16:00 88 04/12/19 15:13 36.5 C 82 16 146/72 H 96 Cardiovascular + regular rate Respiratory + respiratory effort normal Pre-Sedation Airway Assessment Smoking Status: Never smoker Hx Sleep Apnea: No Hx Difficult Intubation: No Short, Thick Neck: No Thyromental Distance: > or= 3.5 Finger Breadths Mallampati Class: II ASA: ASA3 Procedure Planning Contraindications for Sedation: none Current Medications Reviewed: Yes Notes The planned sedation has been discussed with the patient. Informed Consent was obtained. I have identified the patient, determined the appropriateness of sedation and have assessed the patient immediately prior to the procedure. All medicine(s) and interventions are by my order.
[2019-04-13] MEDS ORDERED: MIDAZOLAM HCL 1 MG/ML 2ML VIAL ONE (12:27)
[2019-04-13] MEDS ORDERED: fentaNYL citrate 100 MCG/2 ML VIAL ONE (12:27)
--- NOTE | 2019-04-13 13:04 | Post Anesthesia Assessment ---
Date of Service April 13, 2019 Post Sedation Assessment Vital Signs Temp Pulse Pulse Resp BP Pulse Ox 04/13/19 13:00 97 H 18 164/84 H 94 04/13/19 12:55 95 H 18 180/92 H 95 04/13/19 12:50 96 H 18 182/112 H 95 04/13/19 11:22 36.8 C 84 20 153/61 H 96 04/13/19 07:35 37.2 C 87 18 146/76 H 96 04/13/19 03:53 36.6 C 82 20 147/81 H 92 04/13/19 01:02 36.4 C L 77 18 166/86 H 94 04/12/19 23:24 92 H 04/12/19 19:09 36.6 C 80 19 127/75 99 04/12/19 16:00 88 04/12/19 15:13 36.5 C 82 16 146/72 H 96 Recovery Score Activity: Moves 4 extremities Respiration: Deep Breath/Cough Circulation: +/-20% PreAnes Value Consciousness: Fully Awake Oxygen Saturation: > 92% On Room Air Post Anesthesia Score: 10 Post Sedation Plan On clinical assessment, the patient appears to have tolerated the sedation without complications. Patient is recovering as anticipated. Patient will continue to be monitored by nursing and may be discharged when sedation discharge criteria are met per below protocol. Upon Completions of procedure and additional 15 minutes continue every 5 minute vital signs and the P.A.R. score; then discharge to a Phase I or Fast Track to Phase II per the following guidelines: * Discharge Patient to appropriate Phase II area if PAR is 8 or greater or return to pre- procedure baseline. The post - procedure orders will be as directed. * If PAR score is less than 8 or not return to pre-procedure baseline then patient will follow Phase I monitoring till PAR is reached for Phase II. The Phase I may be done in procedure room or may call to secure a Phase I area. * If naloxone or flumazenil are used for reversal, hold in Phase I for continued monitoring from when last reversal dose was given for a minimum of 60 minutes or longer pending the nurse and/or physician discretion of patient condition before discharge to Phase II. Please call the Sedation Physician to re-evaluate and complete post-note for discharge to Phase II area. Do NOT discharge from procedure sedation or Phase 1 until post- sedation evaluation note is complete by procedure /sedation MD Sedation Discharge Instructions to be given to the patient at discharge to home.
--- NOTE | 2019-04-13 13:04 | Post Operative Brief Note ---
Cardiology Brief Post Op Date of Surgery April 13, 2019 Pre & Post Diagnosis Operation Date: 04/07/19 14:20 Pre-Op Diagnosis: Deplaced right femoral neck fracture Post-Op Diagnosis: Deplaced right femoral neck fracture Operation Date: 04/13/19 13:00 <No data on this case meets the specified criteria> Procedure HAYLIE Entry Level Chemist Jean Carlos Westfall MD Abnormal Psychology Teacher none Estimated Blood Loss 0 Findings See Below Aneurysmal and patent PFO. No valvular lesions. No vegetations. No thrombus in [place] Complications none Disposition Accompanied Patient To Recovery: No Overlapping Procedure I was immediately available: during the entire case.
[2019-04-13] MEDS: DOCUSATE SODIUM 100 MG CAP PO SCH (20:48)
[2019-04-14] MEDS: ACETAMINOPHEN 500 MG TAB PO SCH ×2 (03:50→12:12)
--- NOTE | 2019-04-14 06:42 | Discharge Summary ---
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 Patient reports going to the freezer to get her ice pack for her back at midnight which she usually does and falling after she turned. Denies any lightheadedness or other symptoms at the time. She is not sure if it is due to her weak core strength or her right knee may have also gave out on her as it is not so good. She had difficulty getting up and arrived to help get her into a wheelchair prior to calling EMS. Reports right hip throbbing and constant pain at this time. Pain shoots down leg. Also reports chronic constipation which does not respond to 2 capfuls of MiraLAX every day. Has bowel movements every 4 days. Denies any fever, chills, chest pain, shortness of breath, headache, lightheadedness, nausea, vomiting, abdominal pain, diarrhea, hematochezia, melena, hematuria, dysuria. Did not have anything to eat after supper last night around 7 PM. Principal Diagnosis Right hip fracture; CVA Discharge Exam Constitutional WD/WN, vitals as above cooperative and comfortable Eyes EOM intact bilaterally ENMT external ear and nose normal, oropharynx normal Neck normal visual inspection and trachea midline Respiratory normal respiratory effort, lungs clear to auscultation Cardiovascular Rate/Rhythm: regular rate and regular rhythm Gastrointestinal (Abdomen) Percussion/Palpation: abdomen soft; abdomen nontender Musculoskeletal Spine: normal cervical lordosis Skin no rashes, warm and dry Neurologic moves all extremities and awake Psychiatric Orientation: alert, oriented to person and cooperative Eye Contact: good eye contact Discharge Data Allergies Allergy/AdvReac Type Severity Reaction Status Date / Time No Known Drug Allergies Allergy Unknown . Verified 04/07/19 02:51 Consultations 04/07/19 03:41 ED Decision to Admit Stat 04/07/19 05:32 Consult Orthopedic Surgery Routine 04/07/19 19:44 Consult Case Management - Discharge Planning Routine 04/10/19 15:51 Consult Neurology Routine 04/10/19 18:37 Consult Neurology Routine Procedures Performed Operation Date: 04/07/19 14:20 Actual Procedures p Right Hip Hemiarthroplasty - Cemented(Right) - Coleman Cheney MD Operation Date: 04/13/19 13:00 Actual Procedures p Echo Transesophageal - Haroon Westfall MD Ordered Studies 04/07/19 20:16 CT head/brain wo con Stat 04/10/19 15:44 CT head/brain wo con Stat 04/10/19 17:12 MR brain wo con Routine 04/11/19 17:40 CT head/brain wo con Stat Hospital Course (1) Closed fracture of right hip: 73-year-old female was admitted on 07 April 2019 for a right femoral head neck fracture following a fall. Closed impacted right femoral head neck fracture, fall, suspected osteoporosis: Details of fall are unclear. Underwent arthroplasty on Sep. See related orthopedic notes with mobilization recommendations. Due to concerns for o steoporosis, given single dose of vitamin D. Pending DEXA scan around June 2019 per . AMS, acute CVA, delirium, reported underlying vascular dementia: 06Sep PM suffered acute likely embolic stroke primarily of the cerebellum. See multiple CT and MRI scans. Continued waxing/waning mental status with delirium significantly contributing. See neurology notes. Concern for wide distribution caused by embolic phenomenon versus transient anemic event in the perioperative period. - Transesophageal echo showed patient PFO which isn't likely source of embolic showers and intraspetal anuerysm. She had workup here with neurology for embolic causes without identifying cause. PT ongoing. Speech therapy consult placed and okay to eat without issues. - [place] [id number]. We will monitor to treat her blood pressure and provide as needed doses of metoprolol. Acute blood loss, iron deficiency anemia: Hb as low as 5.9 postop. Received two units of PRBCs on 05Sep. Since improved to 9s. Unclear if this acute anemia contributed to her above CVA. Has been stable since receiving transfusions. Hypokalemia: As low as K 3.2. Replaced. Continue home potassium twice daily. 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 - Hypertension, hyperlipidemia: On lisinopril, atorvastatin. - GERD: Continue home pantoprazole. - Breast cancer: History of lumpectomy in 1999. - Depression, anxiety: Continue home duloxetine and Lexapro. Stopped home Ambien due to lethargy. - Chronic back pain, degenerative disc disease, osteoarthritis: Followed by pain management. On Toradol as needed here. - Constipation: On Colace and MiraLAX. Also prune juice. Code status: DNR/DNI. Diet: Regular. DVT prophy: SCDs. Holding chemical anticoagulation due to concern for worsening CVA. PT/OT: Ongoing. Disbo: Admitted to [facility]. Case management following. Discharged to [facility]. (2) Fall: (3) Altered mental status: (4) Acute CVA (cerebrovascular accident): (5) Delirium: (6) Vascular dementia: (7) Acute blood loss anemia: (8) Iron deficiency anemia: (9) Hypokalemia: (10) Hypertension: (11) High cholesterol: (12) GERD (gastroesophageal reflux disease): (13) Breast cancer: (14) Depression: (15) Anxiety: (16) Chronic back pain: (17) Degenerative disc disease: (18) Osteoarthritis: (19) Constipation: Total Time Total Time Spent Total Time Spent (In Minutes): 45 Discharge Plan Discharge Items Patient Disposition: Transfer Inpatient Rehab Fac Reason For Visit: FT FEMORAL HEAD/NECK FRACTURE Discharge Diagnosis: Right Hip Arthroplasty for Fracture Discharge Goals: Decrease discomfort, Improve disease control and Therapeutic intervention Activity: Per Instructions section Activity Comment: Follow Hip Precautions Weightbearing: Full weightbearing Weightbearing Comment: Weightbear as tolerated obeying hip precautions Non-emergency contact: Primary Care Provider Call non-emergency contact if: you have any medication questions, your pain is unusual for you and you have a fever Follow-up/Referrals: Coleman Cheney MD [Physician] - (Follow-up with Orthopedics/Dr. Cheney 2 weeks from surgery date.) Elizabeth Ramirez [Primary Care Provider] - Diet: Regular Addtl Provider Instructions: You were seen for right hip fracture which was treated surgically. You will need inpatient rehab to help with recovery and return to function. Also, it appears you suffered a stroke or brain injury. You had a full stroke workup which did not show a potential cause. You will continue with your home Plavix. ACTIVITY RECOMMENDATIONS: Physical Therapy: * Aggressive physical therapy is not usually needed. You will learn to take care of yourself safely and walk. * Follow the "Hip Precautions Instructions." * In some cases, the social media sr strategy manager at the hospital will arrange to have a therapist come to your house for the first couple of weeks to help you learn these skills. * You need to practice on your own or with the help of a family member as needed. * When you learn these skills, most of the therapy can be done on your own. Home Exercise: * You were shown a series of exercises in the hospital. Do these exercises three to four times each day including the exercises you were shown in physical therapy. Walking: * Get up and walk several times each day. For the first four weeks, try not to stand or walk for more than one hour at a time. If you do stand or walk for more than one hour, you will not hurt anything, but your leg will likely swell. * As you feel comfortable, you may change from the walker or crutches to a cane and then to independent walking. "VERY IMPORTANT TO READ AND REVIEW" Pain: * The immediate post-operative period after hip replacement surgery is often quite painful. * You are given a prescription for pain medicine. You should take it, as directed, when you need it, especially before physical therapy and before going to bed. Pain that interferes with sleep is very common and can last several months. * You will likely need pain medicine for the first two to four weeks. It will not stop all of the pain. The pain will lessen and as you feel better, you may change to milder pain medicine such as Tylenol. * The most common side effects of pain medicine are nausea and constipation, so don't take more than you need. SPECIAL CARE INSTRUCTIONS: TEDs/Elastic Stockings: * The white elastic stockings help limit swelling and prevent blood clots from forming in your legs. The more you wear them, the more they work. * Wear them for six weeks. Prevention of Infection: * Take antibiotics one hour before any dental cleaning, dental work, urological procedure, gastrointestinal procedure or any invasive surgery in order to prevent your new joint from getting infected. * You may get the antibiotics from the doctor performing the procedure or you may call our office at before and we will call in a prescription to the pharmacy of your choice. Things to Watch For: * Drainage from the incision site that occurs more than one week after your surgery. * Severely increased leg pain or swelling. * Increased redness at the incision site. * Fever above 102 degrees Fahrenheit. * Unusual chest pain or shortness of breath. * Unusual pain or burning with urination. Call [facility] at with any of the above problems or if you have any questions about your medicines or recovery. FOLLOW UP VISIT: Make an appointment to see your doctor for approximately two weeks after surgery for a progress check and staple removal by calling the office at . Prescriptions: Continued cetirizine-pseudoephedrine [Zyrtec-D] 5-120 mg Tablet Extended Release 12 Hr 1 tab PO Q12H PRN (Reason: Allergic Symptoms) RF: 0 cyanocobalamin (vitamin B-12) [Vitamin B-12] 1,000 mcg Tablet 1,000 mcg PO QAM RF: 0 hydrocodone-acetaminophen [[place]] 5-325 mg tablet 1 tab PO Q6H PRN (Reason: pain) Qty: 12 RF: 0 zolpidem [Ambien] 10 mg tablet 5 mg PO HS RF: 0 fluticasone propionate [Flonase Allergy Relief] 50 mcg/actuation spray,suspension 1 spray Intranasal UD PRN (Reason: SINUS CONGESTION) RF: 0 escitalopram oxalate [Lexapro] 10 mg tablet 10 mg PO QAM RF: 0 duloxetine [Cymbalta] 20 mg capsule,delayed release(DR/EC) 20 mg PO BID RF: 0 clopidogrel 75 mg Tablet 75 mg PO QAM Qty: 30 RF: 0 potassium chloride [Klor-Con M20] 20 mEq Tablet,Er Particles/Crystals 20 meq PO BID Qty: 60 RF: 0 lisinopril [Prinivil] 5 mg Tablet 5 mg PO QAM RF: 0 docusate sodium 100 mg Capsule 100 mg PO BID Qty: 60 RF: 0 cholecalciferol (vitamin D3) [Vitamin D3] 1,000 unit Tablet 1,000 unit PO QAM Qty: 30 RF: 0 oxycodone 5 mg tablet 5 - 10 mg PO Q6H PRN (Reason: pain) Qty: 30 RF: 0 polyethylene glycol 3350 [Miralax] 17 gram/dose Powder 17 g PO HS RF: 0 atorvastatin 80 mg tablet 80 mg PO QAM RF: 0 pantoprazole 40 mg tablet,delayed release (DR/EC) 40 mg PO QAM RF: 0 ergocalciferol (vitamin D2) [Vitamin D2] 50,000 unit capsule 50,000 unit PO WK RF: 0 Stand-Alone Forms: [facility] Discharge Orders: Discharge Order (Routine); Ordered 04/14/19 Ordered By: Cornelio Avilez Skilled Items Patient informed of condition?: Yes DNR: Yes Discharge Level of Care: Acute rehab Communicable Disease: No Discharge Prognosis: Stable Admission Data Admit Date/Time: 04/07/19 04:45 Attending Provider: Haroon Short Admit Provider: Alphonso Tena Primary Care Provider: Elizabeth Ramirez Other Providers: Coy Fitch ; Alphonso Tena ; Coleman Cheney ; Gertrudis Bautista Service: Telemetry Other Interventions: Discharge Summary Assessment (RN) Last Done: 04/14/19 13:10 DC Date/Time DO NOT enter until pt leaves facility: 04/14/19 13:10 Supervising Physician Co-Signing Physician Notes Attending attestation Pt seen and examined in concert with Dr. Avilez. In agreement with the documented findings as noted in the resident documentation with any exceptions or additions as noted here. Well controlled pain of the right hip presently. Still with variable awareness/orientation. Acute/subacute CVA in the setting of vascular dementia - secondary prevention with clopidogrel with evaluation as documented above, ST does not recommend continued therapy at acute rehab. Closed impacted R femoral fx s/p repair - ongoing supplementation with Vit D 1000 IU daily, transition to [facility] for PT/OT course Anemia, blood loss atop iron deficiency - stable, would bear monitoring at outpatient follow up. Else see resident documentation as noted. Resident Activity Tracking Resident Involvement: Resident Care Provided Care Provided: Adult Hospital Medicine
[2019-04-14] MEDS: ATORVASTATIN 40 MG TAB PO SCH (08:50)
[2019-04-14] MEDS: CHOLECALCIFEROL 1,000 UNITS TAB PO SCH (08:50)
[2019-04-14] MEDS: DULOXETINE HCL 20 MG CAP PO SCH (08:50)
[2019-04-14] MEDS: POTASSIUM CHLORIDE 20 MEQ TABCR PO SCH (08:50)
[2019-04-14] MEDS: CLOPIDOGREL BISULFATE 75 MG TAB PO SCH (08:50)
[2019-04-14] MEDS: CYANOCOBALAMIN 500 MCG TABLET (VITAMIN B-12) PO SCH (08:51)
[2019-04-14] MEDS: ESCITALOPRAM OXALATE 10 MG TAB PO SCH (08:51)
[2019-04-14] MEDS: PANTOprazole 40 MG TAB PO SCH (08:51)
[2019-04-14] MEDS: DOCUSATE SODIUM 100 MG CAP PO SCH (08:54)
== END 2019-04-14 13:10 | DRG 469 ==
LOC: ED 02:29 → 3N 04:45 → SUATTDRO 04:45 → 3N 04:59 → 1E 04-08 06:45 → 3N 04-09 14:35 → 2S 04-10 15:48 → 2E 04-10 18:26

== ENCOUNTER 2020-07-31 00:36 | Observation (INO) ==
--- NOTE | 2020-07-31 01:13 | Emergency Department Note ---
History of Present Illness General Chief complaint: TIA Symptoms Stated complaint: tia Time Seen by Provider: 07/31/20 00:44 Source: patient and family Mode of arrival: ambulatory Limitations: no limitations History of Present Illness Onset (ago): hour(s) 1 Location: face and mouth Radiation: non-radiation Severity: mild Current Pain Intensity: 0 Associated symptoms: + denies other symptoms Treatments prior to arrival: none This is a 75-year-old female presents the emergency department with her from home due to concern for difficulty speaking and possible recurrent TIA. states she had a stroke in September 2018 and a TIA in April 2019. He states she has been fine since. He states she takes Plavix daily, no aspirin, no other anticoagulation. Both patient and confirm they were watching a movie at home resting comfortably on the couch at midnight when she suddenly could not answer questions or speak. states she started to mumble and stumble through words. After several minutes they were concerned that she was having another mini stroke and so they got ready and came to the emergency room. He states that in route her speech began to improve, now at bedside it is almost completely back to normal. He states this is similar to her prior TIA. He states they have previously seen Dr. Fitch of neurology following her initial stroke, although they have not seen him now in over a year. No other recent change in medications, no recent sick contact. Patient states she gets headaches frequently, however that is not new for her and they have not changed recently. Patient denies any accompanying chest pain, trouble breathing, abdominal pain, vision changes, weakness in arm or leg. Patient with chronic right upper extremity and right lower extremity weakness due to prior back surgeries according to the . states she also appeared to have a very slight droop to the left side of her mouth, although states now at bedside that is improved also. Nursing staff reports that pt and reported all symptoms were resolved by the time of arrival here and she is back to her baseline. mentioned to nurse she will occasionally have difficulty finding a word. Pt seen during a time of high acuity and national emergency pandemic while wearing PPE. Home Medications Medication Instructions Recorded Confirmed Type clopidogrel 75 mg PO QAM #30 tab 09/18/18 07/31/20 Rx cholecalciferol (vitamin D3) 1,000 unit PO QAM #30 tab 11/13/18 07/31/20 Rx [Vitamin D3] docusate sodium 100 mg PO BID #60 cap 11/13/18 07/31/20 Rx cyanocobalamin (vitamin B-12) 1,000 mcg PO QAM 12/14/18 07/31/20 History [Vitamin B-12] atorvastatin 80 mg PO QAM 03/06/19 07/31/20 History pantoprazole 40 mg PO QAM 03/06/19 07/31/20 History polyethylene glycol 3350 [Miralax] 17 g PO HS 03/06/19 07/31/20 History aspirin 81 mg PO DAILY #21 tab 07/31/20 Rx duloxetine 30 mg PO BID 07/31/20 07/31/20 History hydrocodone-acetaminophen 1 tab PO Q6 07/31/20 07/31/20 History ibandronate 150 mg PO MONTHLY 07/31/20 07/31/20 History lisinopril 10 mg PO HS #30 tab 07/31/20 Rx potassium chloride 20 meq PO DAILY 07/31/20 07/31/20 History zolpidem 5 mg PO HS PRN 07/31/20 07/31/20 History Allergies Allergy/AdvReac Type Severity Reaction Status Date / Time No Known Drug Allergies Allergy Unknown . Verified 07/31/20 00:58 Adhesive Tape Allergy Unknown Unknown Uncoded 07/31/20 00:58 Past Med/Surg History Medical History (Updated 07/31/20 @ 10:48 by Ramiro Salcido MD) Acid reflux Anxiety Aphasia H/O FROM STROKE 09/2018. Breast cancer 2000. RIGHT LUMPECTOMY. Chronic back pain Closed fracture of right distal tibia Constipation reason for scheduled colonoscopy Degenerative disc disease Depression Deviated septum High cholesterol Hypertension On anticoagulant therapy Osteoarthritis Peptic ulcer disease H/O BLEEDING ULCERS Stroke SEPTEMBER 17, 2018. TREATED AT [facility]. FOLLOWED WITH DR FITCH. SHORT TERM MEMORY DIFFICULTIES, reason for plavix Stroke-like symptoms 09/2018 Transient ischemic attack (TIA) H/O. LAST EPISODE WAS OCTOBER 2017 Surgical History Fusion of spine LUMBAR H/O: hysterectomy History of ankle surgery History of arthroscopy BILATERAL KNEE ARTHROSCOPY History of back surgery (7 TOTAL) History of carpal tunnel release BILATERAL History of cataract surgery BILATERAL History of colonoscopy History of discectomy LUMBAR x4 History of esophagogastroduodenoscopy (EGD) History of open reduction and internal fixation (ORIF) procedure right ankle fx---hardware in place Hx of lumpectomy RIGHT Status post ORIF of fracture of ankle Family History Brother Stroke Mother , age 80 of heart issues. Coronary heart disease [place] Father , age 36 in a motor vehicle accident No problems noted. Other No family history of adverse response to anesthesia Social History Smoking Status: Never smoker Second Hand Exposure: No; Hx Alcohol Use: No Hx Substance Use: No Preferred Language: Danish Communication Ability: Effective Visual Impairment: No Limitations [employer] Director Required: No Beliefs That Will Affect Care: None marital status: Current Living Situation: Spouse current occupational status: previously employed Feels Safe at Home: Yes Assistive Devices: Denture - Upper and Glasses Review of Systems See HPI for pertinent positives & negatives. and A total of 10 systems reviewed and were otherwise negative Physical Exam Vital Signs Vital Signs - 24 hr 07/31/20 02:20 07/31/20 02:23 07/31/20 02:30 Pulse Rate 72 72 Pulse Rate from SpO2 Sensor 74 71 72 Respiratory Rate 22 16 20 Blood Pressure 189/106 H 185/100 H Blood Pressure Mean 130 136 Pulse Oximetry 98 99 98 07/31/20 02:37 07/31/20 03:01 07/31/20 03:03 Pulse Rate 76 78 74 Pulse Rate from SpO2 Sensor 78 78 77 Respiratory Rate 17 20 18 Blood Pressure 184/102 H 208/115 H Blood Pressure Mean 136 149 Pulse Oximetry 99 98 98 07/31/20 03:30 07/31/20 03:40 07/31/20 03:52 Pulse Rate 71 71 64 Pulse Rate from SpO2 Sensor 71 73 65 Respiratory Rate 14 18 16 Blood Pressure 177/82 H 175/105 H 166/92 H Blood Pressure Mean 105 111 113 Pulse Oximetry 98 100 95 07/31/20 04:00 Pulse Rate 63 Pulse Rate from SpO2 Sensor 63 Respiratory Rate 14 Blood Pressure 165/97 H Blood Pressure Mean 123 Pulse Oximetry 95 GENERAL: alert, well appearing, well nourished, no distress, non-toxic EYE EXAM: normal conjunctiva, PERRL and EOM's grossly intact, no nystagmus OROPHARYNX: no exudate, no erythema, lips, buccal mucosa, and tongue normal and mucous membranes are moist NECK: supple, no nuchal rigidity, no adenopathy, non-tender LUNGS: Clear to auscultation. Normal chest wall mechanics, no w/r/r HEART: no murmurs, S1 normal and S2 normal ABDOMEN: abdomen soft, non-tender, normo-active bowel sounds, no masses, no rebound or guarding. BACK: Back is symmetrical on inspection and there is no deformity, no midline tenderness, no CVA tenderness. SKIN: no rashes and no bruising UPPER EXTREMITIES: upper extremities are grossly normal. FROM, nml pulses b/l. LOWER EXTREMITIES: No pitting edema. FROM, nml pulses b/l. NEURO EXAM: Normal sensorium, cranial nerves II-XII grossly intact, normal speech, no facial droop, no gross weakness of arms, no gross weakness of legs. No pronator drift. Finger to nose intact. Gross sensation intact. Course Course 0250: Extensive and lengthy bedside discussion with the patient regarding her symptoms, my concerns regarding slight intermittent difficulty with words yet, as well as persistent hypertension. I did review prior notes from neurology in April 2019 regarding her prior strokes. I discussed this with patient and her at bedside also. Patient adamant that she does not want admitted. Patient concerned because her could not accompany her and remained with her upstairs, also concerned about camacho coronavirus while admitted. Patient asked if she could go home and come back tomorrow to see neurology. We discussed the process of inpatient versus outpatient testing and follow-up. Patient has not seen neurology in over a year, and has no upcoming appointments. Patient and state that they were trying to change to a different neurologist. Patient's is in agreement with plan and would like her to stay however patient begins to argue with her that she does not wish to stay and wants to go home. 0320: Additional bedside discussion. Given patient would likely be an ED hold at this time as there are no inpatient beds available, we will let the patient's to stay with her while in the emergency room. Patient is agreeable with staying here during that time. Patient's adamant the patient does need to be seen by neurology today. I discussed with them I have no control over when or how she is seen by consultants when she is admitted by the hospitalist. I also do not know if she would still be in the emergency room at that time that he could be present or if she would be upstairs at which point he would not be allowed to be at her bedside. Both of them verbalized understanding of this. Patient is still hypertensive at this time, has no other new or evolving symptoms. 0335: Discussed with Dr. Tena. Administered Medications Discontinued Medications Acetaminophen (Acetaminophen 325 Mg Tab) Confirm Administered Dose 650 mg .ROUTE .STK-MED ONE Stop: 07/31/20 03:51 Last Admin: 07/31/20 03:53 Dose: 650 mg Documented by: [id number] Acetaminophen (Acetaminophen 325 Mg Tab) 650 mg PO Q4H PRN PRN Reason: Pain or Fever Stop: 08/30/20 05:19 Last Admin: 07/31/20 14:30 Dose: 650 mg Documented by: [id number] Admin: 07/31/20 07:21 Dose: 650 mg Documented by: [id number] Aspirin (Aspirin 81 Mg Ectab) 81 mg PO [facility] Stop: 08/30/20 08:59 Last Admin: 07/31/20 07:22 Dose: 81 mg Documented by: [id number] Atorvastatin Calcium (Atorvastatin 40 Mg Tab) 80 mg PO [facility] Stop: 08/30/20 08:59 Last Admin: 07/31/20 07:22 Dose: 80 mg Documented by: [id number] Clopidogrel Bisulfate (Clopidogrel Bisulfate 75 Mg Tab) 75 mg PO [facility] Stop: 08/30/20 08:59 Last Admin: 07/31/20 07:23 Dose: 75 mg Documented by: [id number] Cyanocobalamin (Cyanocobalamin 500 Mcg Tablet (Vitamin B-12)) 1,000 mcg PO [facility] Stop: 08/30/20 08:59 Last Admin: 07/31/20 07:23 Dose: 1,000 mcg Documented by: [id number] Docusate Sodium (Docusate Sodium 100 Mg Cap) 100 mg PO BID [facility] Stop: 08/30/20 08:59 Last Admin: 07/31/20 07:23 Dose: 100 mg Documented by: [id number] Enoxaparin Sodium (Enoxaparin Inj 30 Mg/0.3 Ml Syr) 30 mg SQ Q24H [facility] Stop: 08/30/20 08:59 Last Admin: 07/31/20 07:21 Dose: 30 mg Documented by: [id number] Sodium Chloride (Nss 1000ml) 1,000 mls @ 125 mls/hr IV .Q8H [facility] Stop: 08/30/20 01:14 Last Infusion: 07/31/20 05:39 Dose: 0 mls/hr Documented by: [id number] Admin: 07/31/20 02:23 Dose: 125 mls/hr Documented by: [id number] Potassium Chloride/Sodium Chloride (Normal Saline W/20 Meq Kcl) 20 meq in 1,000 mls @ 60 mls/hr IV .[id number] [facility] Stop: 08/30/20 04:14 Last Admin: 07/31/20 06:08 Dose: 60 mls/hr Documented by: [id number] Ioversol (Optiray 320 125ml) 120 ml IV ONCE ONE Stop: 07/31/20 02:09 Last Admin: 07/31/20 02:09 Dose: 120 ml Documented by: [id number] Labetalol HCl (Labetalol Hcl Iv 5 Mg/Ml 20ml) 10 mg IV NOW STA Stop: 07/31/20 03:30 Last Admin: 07/31/20 03:36 Dose: 10 mg Documented by: [id number] Cosigned by: [id number] Pantoprazole Sodium (Pantoprazole 40 Mg Tab) [facility] [place] Stop: 08/30/20 08:59 Last Admin: 07/31/20 07:23 Dose: 40 mg Documented by: [id number] Vitamin D (Cholecalciferol 1,000 Units 25 Mcg Tab) 1,000 units PO [facility] Stop: 08/30/20 08:59 Last Admin: 07/31/20 07:23 Dose: 1,000 units Documented by: [id number] Medical Decision Making Differential Diagnosis Differential Diagnosis includes but is not limited to ischemic Stroke, hemor rhagic stroke, bells palsy, mass, neoplasm, migraine headache, seizure, subarachnoid hemorrhage, TIA, and transient global amnesia. Medical Records Attestation: I reviewed the patient's medical records. Home Medications Current Medication List: was personally reviewed by me Laboratory Data Attestation: I reviewed the patient's lab results. Result diagrams: 07/31/20 00:58 07/31/20 00:58 Lab Results 07/31/20 07/31/20 07/31/20 Range/Units 00:58 00:58 00:58 WBC 6.54 (4.8-10.8) K/uL RBC 4.10 L (4.2-5.4) M/uL Hgb 11.7 L (12.0-16.0) g/dL Hct 36.2 L (37-47) % MCV 88.3 (80-100) fL MCH 28.5 (25-34) pg MCHC 32.3 (32-36) g/dL RDW Std Deviation 46.0 (36.4-46.3) fL RDW Coeff of Edouard 14.2 (11.5-14.5) % Plt Count 272 (130-400) K/uL MPV 9.6 (7.4-10.4) fL Immature Gran % (Auto) 0.2 % Neut % (Auto) 52.0 % Lymph % (Auto) 36.2 % White % (Auto) 9.5 % Eos % (Auto) 1.8 % Baso % (Auto) 0.3 % Neut # (Auto) 3.40 (1.4-6.5) K/uL Lymph # (Auto) 2.37 (1.2-3.4) K/uL White # (Auto) 0.62 H (0.11-0.59) K/uL Eos # (Auto) 0.12 (0-0.5) K/uL Baso # (Auto) 0.02 (0-0.2) K/uL Immature Gran # (Auto) 0.01 (0.00-0.02) K/uL PT 10.4 (9.0-12.0) Seconds INR 1.0 (0.9-1.1) APTT 23.4 (21.0-31.0) Seconds PTT Ratio 0.8 Sodium 141 (136-145) mmol/L Potassium 3.5 (3.5-5.1) mmol/L Chloride 108 H (98-107) mmol/L Carbon Dioxide 30 (21-32) mmol/L Anion Gap 3.0 (3-11) BUN 11 (7-18) mg/dl Creatinine 0.68 (0.6-1.2) mg/dl Est Cr Clr Drug Dosing Not Reportable Est GFR ( Amer) 99.9 Est GFR (Non-Af Amer) 86.2 BUN/Creatinine Ratio 15.7 (10-20) Glucose 102 H (70-99) mg/dl Calcium 9.1 (8.5-10.1) mg/dl Magnesium 2.3 (1.8-2.4) mg/dl Total Bilirubin 0.4 (0.2-1) mg/dl AST 19 (15-37) U/L ALT 22 (12-78) U/L Alkaline Phosphatase 68 (45-117) U/L Troponin I < 0.015 (0-0.045) ng/ml Total Protein 7.5 (6.4-8.2) gm/dl Albumin 3.9 (3.4-5.0) gm/dl Globulin 3.6 (2.5-4.0) gm/dl Albumin/Globulin Ratio 1.1 (0.9-2) Urine Color Urine Appearance (Clear) Urine pH (4.5-7.5) Ur Specific [place] (1.000-1.030) Urine Protein (Negative) Urine Glucose (UA) (Negative) Urine Ketones (Negative) Urine Blood (Negative) Urine Nitrite (Negative) Urine Bilirubin (Negative) Urine Urobilinogen (Negative) Ur Leukocyte Esterase (Negative) Urine WBC (Auto) (0-5) /hpf Urine RBC (Auto) (0-4) /hpf U Hyaline Cast (Auto) (0-5) /lpf U Epithel Cells (Auto) (0-5) /lpf Urine Bacteria (Auto) (Negative) SARS-CoV-2 Ag (Rapid) (Negative) 07/31/20 07/31/20 Range/Units 02:13 04:06 WBC (4.8-10.8) K/uL RBC (4.2-5.4) M/uL Hgb (12.0-16.0) g/dL Hct (37-47) % MCV (80-100) fL MCH (25-34) pg MCHC (32-36) g/dL RDW Std Deviation (36.4-46.3) fL RDW Coeff of Edouard (11.5-14.5) % Plt Count (130-400) K/uL MPV (7.4-10.4) fL Immature Gran % (Auto) % Neut % (Auto) % Lymph % (Auto) % White % (Auto) % Eos % (Auto) % Baso % (Auto) % Neut # (Auto) (1.4-6.5) K/uL Lymph # (Auto) (1.2-3.4) K/uL White # (Auto) (0.11-0.59) K/uL Eos # (Auto) (0-0.5) K/uL Baso # (Auto) (0-0.2) K/uL Immature Gran # (Auto) (0.00-0.02) K/uL PT (9.0-12.0) Seconds INR (0.9-1.1) APTT (21.0-31.0) Seconds PTT Ratio Sodium (136-145) mmol/L Potassium (3.5-5.1) mmol/L Chloride (98-107) mmol/L Carbon Dioxide (21-32) mmol/L Anion Gap (3-11) BUN (7-18) mg/dl Creatinine (0.6-1.2) mg/dl Est Cr Clr Drug Dosing Est GFR ( Amer) Est GFR (Non-Af Amer) BUN/Creatinine Ratio (10-20) Glucose (70-99) mg/dl Calcium (8.5-10.1) mg/dl Magnesium (1.8-2.4) mg/dl Total Bilirubin (0.2-1) mg/dl AST (15-37) U/L ALT (12-78) U/L Alkaline Phosphatase (45-117) U/L Troponin I (0-0.045) ng/ml Total Protein (6.4-8.2) gm/dl Albumin (3.4-5.0) gm/dl Globulin (2.5-4.0) gm/dl Albumin/Globulin Ratio (0.9-2) Urine Color Yellow Urine Appearance Clear (Clear) Urine pH 7.5 (4.5-7.5) Ur Specific [place] 1.017 (1.000-1.030) Urine Protein Negative (Negative) Urine Glucose (UA) Negative (Negative) Urine Ketones Negative (Negative) Urine Blood Negative (Negative) Urine Nitrite Negative (Negative) Urine Bilirubin Negative (Negative) Urine Urobilinogen Negative (Negative) Ur Leukocyte Esterase 1+ H (Negative) Urine WBC (Auto) 1-5 (0-5) /hpf Urine RBC (Auto) 0-4 (0-4) /hpf U Hyaline Cast (Auto) 1-5 (0-5) /lpf U Epithel Cells (Auto) 5-10 H (0-5) /lpf Urine Bacteria (Auto) Negative (Negative) SARS-CoV-2 Ag (Rapid) Negative (Negative) Imaging Data Radiologist's Impression: CT head: Atrophy and advanced white matter changes. Chronic infarcts within the left cerebellum and left basal ganglia. No intracranial hemorrhage. No grossly evident acute transcortical infarct. CTA head: No steno-occlusive disease. CTA neck: No steno-occlusive disease. Radiologist: Taz Melton MD ECG Data Attestation: I personally reviewed and interpreted this ECG as follows: Indication: + other Rate (beats per minute): 78 Rhythm: + normal sinus ECG Intervals/blocks: + First degree AV block, + Normal QRS and + Prolonged QT ECG [place]: + Normal ECG ST segments: + Normal ST segments Additional Comments: baseline artifact noted Blood Pressure Blood Pressure Findings: Elevated blood pressure Blood Pressure Disposition: Referred to patients primary care provider MDM Narrative This is a 75-year-old female who presents from home with her due to co ncern for recurrent TIA. Patient does have a prior history of TIA/CVA. Patient does take Plavix daily, no other antiplatelet or anticoagulation therapy. Labs drawn and sent and patient sent for CT imaging. CT and CTA of the head and neck were reassuring. Old infarcts were noted on CT and upon additional review of EMR, patient had a watershed phenomenon of emboli previously and there is mention in dictations of evolving multi-infarct/vascular dementia. While patient symptoms seem to resolve by arrival here, I discussed with her my concern given her prior history, and repeat episode despite use of Plavix. I took several lengthy bedside discussions, answering all questions with the patie nt to come to an agreement on a disposition. Patient most concerned about her not being able to be with her when she is admitted due to current restrictions on visitation with the current Covid pandemic. was concerned about patient seeing a neurologist urgently as she has not seen one in over a year and has no upcoming appointments. Patient had no recurrent or worsening symptoms while here, remained hemodynamically stable although hypertensive throughout. Patient was given a dose of labetalol with improvement in her blood pressure. I did discuss with them that uncontrolled hypertension could lead to TIA/CVA symptoms also. I do not suspect hypertensive emergency at this time. I do feel some of the patient's hypertension is likely due to anxiety about her current condition and potential inpatient treatment. No evidence of metabolic or infectious etiology. No other structural abnormalities noted on imaging. Patient has been kept aware of all results. Case discussed with hospitalist. An order was placed for continuous cardiac monitoring. The monitor shows a rate of _86 with _normal sinus_ rhythm. Impression & Plan TIA (transient ischemic attack), Hypertension Discharge Plan Visit Data Chief Complaint: TIA Symptoms Stated Complaint: tia ED Provider: Maryana Cha Discharge Problem: TIA (transient ischemic attack), Hypertension Patient Disposition: Admitted As Inpatient Discharge Instructions Interventions: ED Discharge Assessment Last Done: 07/31/20 04:36 Discharge Problem: Hypertension Qualifiers: Hypertension type: essential hypertension Qualified Code(s): I10 - Essential (primary) hypertension
[2020-07-31] MEDS ORDERED: SODIUM CHLORIDE 0.9% 1000ML 1,000 ML IV SCH (01:15)
[2020-07-31 01:18] LABS: Basophils # (auto) 0.02 K/uL (0-0.2); Basophils % (auto) 0.3 %; Eosinophils # (auto) 0.12 K/uL (0-0.5); Eosinophils % (auto) 1.8 %; Hematocrit (blood only) 36.2 % (37-47); Hemoglobin 11.7 g/dL (12.0-16.0); Immature Granulocytes # (auto) 0.01 K/uL (0.00-0.02); Immature Granulocytes % (auto) 0.2 %; Lymphocytes # (auto) 2.37 K/uL (1.2-3.4); Lymphocytes % (auto) 36.2 %; Mean Corpuscular Hemoglobin 28.5 pg (25-34); Mean Corpuscular Hgb Conc 32.3 g/dL (32-36); Mean Corpuscular Volume 88.3 fL (80-100); Mean Platelet Volume 9.6 fL (7.4-10.4); Monocytes # (auto) 0.62 K/uL (0.11-0.59); Monocytes % (auto) 9.5 %; Platelet Count 272 K/uL (130-400); RDW Coefficient of Variation 14.2 % (11.5-14.5); White Blood Count 6.54 K/uL (4.8-10.8)
[2020-07-31 01:26] LABS: Alanine Aminotransferase 22 U/L (12-78); Albumin Level 3.9 gm/dl (3.4-5.0); Aspartate Aminotransferase 19 U/L (15-37); BUN Creatinine Ratio 15.7 (10-20); Blood Urea Nitrogen 11 mg/dl (7-18); Calcium 9.1 mg/dl (8.5-10.1); Carbon Dioxide 30 mmol/L (21-32); Chloride 108 mmol/L (98-107); Est GFR (African American) 99.9; Est GFR (Non-African American) 86.2; Glucose 102 mg/dl (70-99); Magnesium 2.3 mg/dl (1.8-2.4); Potassium 3.5 mmol/L (3.5-5.1); Sodium 141 mmol/L (136-145)
[2020-07-31 01:31] LABS: Albumin Globulin Ratio 1.1 (0.9-2); Alkaline Phosphatase 68 U/L (45-117); Bilirubin,Total 0.4 mg/dl (0.2-1); Globulin 3.6 gm/dl (2.5-4.0); Total Protein 7.5 gm/dl (6.4-8.2); Troponin I < 0.015 ng/ml (0-0.045)
[2020-07-31 01:32] LABS: Partial Thromboplastin Ratio 0.8; Partial Thromboplastin Time 23.4 Seconds (21.0-31.0); Prothrombin Time 10.4 Seconds (9.0-12.0)
[2020-07-31] MEDS ORDERED: OPTIRAY 320 125ml IV ONE (02:08)
[2020-07-31 02:26] LABS: Appearance Urine Clear (Clear); Bacteria Urine Automated Negative (Negative); Bilirubin Urine Negative (Negative); Blood Urine Negative (Negative); Color Urine Yellow; Glucose Urine UA Negative (Negative); Ketones Urine Negative (Negative); Leukocyte Esterase Urine 1+ (Negative); Nitrite Urine Negative (Negative); Protein Urine Negative (Negative); RBC Urine Automated 0-4 /hpf (0-4); Specific Gravity Urine 1.017 (1.000-1.030); Urobilinogen Urine Negative (Negative); pH Urine 7.5 (4.5-7.5)
[2020-07-31] MEDS ORDERED: LABETALOL HCL IV 5 MG/ML 20ML IV STA (03:29)
[2020-07-31] MEDS ORDERED: ACETAMINOPHEN 325 MG TAB ONE (03:50)
[2020-07-31] MEDS ORDERED: NSS + 20MEQ KCL 20 MEQ/1,000 ML BAG IV SCH (04:15)
--- NOTE | 2020-07-31 04:18 | History & Physical Report ---
Date of Service July 31, 2020 Assessment & Plan (1) TIA (transient ischemic attack): TIA/history of CVA- Primary symptoms have been garbled speech, expressive aphasia, memory loss. CT of head without contrast demonstrates chronic left cerebellar and basal ganglia infarcts. CTA of head and neck are both negative Stroke without TPA order set Permissive hypertension Continue clopidogrel 75 mg every morning. Add chewable aspirin 81 mg every morning. Consult PT/OT. Consult her neurologist Dr. Fitch Hydralazine 10 mg IV every 4 hours as needed systolic blood pressure greater than 180. This can be adjusted after the first 12 hours Present on Admission?: Yes (2) H/O: stroke: See above Present on Admission?: Yes (3) GERD (gastroesophageal reflux disease): Continue pantoprazole 40 mg every morning Present on Admission?: Yes (4) Vascular dementia: Vascular dementia/anxiety and depression- Continue duloxetine 30 mg p.o. twice daily. Hold as needed zolpidem at bedtime Present on Admission?: Yes (5) Anxiety and depression: See above Present on Admission?: Yes (6) High cholesterol: Continue atorvastatin 80 mg every morning Present on Admission?: Yes (7) Hypertension: Permissive hypertension as noted above Present on Admission?: Yes History of Present Illness Chief Complaint: The patient presents to the emergency department with TIA symptoms consistent of garbled speech, expressive aphasia and memory dysfunction, all worse than her baseline. Primary Care Provider: LOYD Galvan The patient is a 75-year-old female with a past medical history including stroke, osteoarthritis, degenerative disc disease, GERD, hypokalemia, acute blood loss anemia, vascular dementia, delirium, acute left-sided weakness, acute encephalopathy, closed fracture right hip status post fall, syncope, iron deficiency anemia, closed fracture of right distal fibula, vitamin D deficiency, anxiety with depression, hypertension, GERD, breast cancer and chronic back pain. Her noted last evening that she was having the above symptoms, and because of the intensity and persistence of the symptoms longer than usual, he brought her to the emergency department for assessment. Allergies Allergy/AdvReac Type Severity Reaction Status Date / Time No Known Drug Allergies Allergy Unknown . Verified 07/31/20 00:58 Adhesive Tape Allergy Unknown Unknown Uncoded 07/31/20 00:58 Home Medications Medication Instructions Recorded Confirmed Type clopidogrel 75 mg PO QAM #30 tab 09/18/18 07/31/20 Rx cholecalciferol (vitamin D3) 1,000 unit PO QAM #30 tab 11/13/18 07/31/20 Rx [Vitamin D3] docusate sodium 100 mg PO BID #60 cap 11/13/18 07/31/20 Rx cyanocobalamin (vitamin B-12) 1,000 mcg PO QAM 12/14/18 07/31/20 History [Vitamin B-12] atorvastatin 80 mg PO QAM 03/06/19 07/31/20 History pantoprazole 40 mg PO QAM 03/06/19 07/31/20 History polyethylene glycol 3350 [Miralax] 17 g PO HS 03/06/19 07/31/20 History duloxetine 30 mg PO BID 07/31/20 07/31/20 History hydrocodone-acetaminophen 1 tab PO Q6 07/31/20 07/31/20 History ibandronate 150 mg PO MONTHLY 07/31/20 07/31/20 History lisinopril 5 mg PO DAILY 07/31/20 07/31/20 History potassium chloride 20 meq PO DAILY 07/31/20 07/31/20 History zolpidem 5 mg PO HS PRN 07/31/20 07/31/20 History Past Med/Surg History Medical History (Updated 07/31/20 @ 04:39 by Alphonso Tena MD) Acid reflux Anxiety Aphasia H/O FROM STROKE 09/2018. Breast cancer 2000. RIGHT LUMPECTOMY. Chronic back pain Closed fracture of right distal tibia Constipation reason for scheduled colonoscopy Degenerative disc disease Depression Deviated septum High cholesterol Hypertension On anticoagulant therapy Osteoarthritis Peptic ulcer disease H/O BLEEDING ULCERS Stroke SEPTEMBER 17, 2018. TREATED AT [facility]. FOLLOWED WITH DR FITCH. SHORT TERM MEMORY DIFFICULTIES, reason for plavix Stroke-like symptoms 09/2018 Transient ischemic attack (TIA) H/O. LAST EPISODE WAS OCTOBER 2017 Surgical History Fusion of spine LUMBAR H/O: hysterectomy History of ankle surgery History of arthroscopy BILATERAL KNEE ARTHROSCOPY History of back surgery (7 TOTAL) History of carpal tunnel release BILATERAL History of cataract surgery BILATERAL History of colonoscopy History of discectomy LUMBAR x4 History of esophagogastroduodenoscopy (EGD) History of open reduction and internal fixation (ORIF) procedure right ankle fx---hardware in place Hx of lumpectomy RIGHT Status post ORIF of fracture of ankle Family History Brother Stroke Mother , age 80 of heart issues. Coronary heart disease [place] Father , age 36 in a motor vehicle accident No problems noted. Other No family history of adverse response to anesthesia Social History Smoking Status: Never smoker Second Hand Exposure: No; Hx Alcohol Use: No Hx Substance Use: No Preferred Language: Malay Communication Ability: Effective Visual Impairment: No Limitations Home Day Care Provider Required: No Beliefs That Will Affect Care: None marital status: Current Living Situation: Spouse current occupational status: previously employed Feels Safe at Home: Yes Assistive Devices: Denture - Upper, Denture - Lower, Glasses and Walker Review of Systems Review of Systems: The patient denies chest pain, palpitations, shortness of breath, dyspnea on exertion, cough, lower extremity swelling, sore throat, fevers, chills, sweats, nausea, vomiting, diarrhea , constipation, abdominal pain, pelvic pain, blood in urine or stool, dysuria, urinary frequency or urgency, lightheadedness, dizziness, headache, loss of consciousness, rash, abnormal bruising or bleeding, imbalance, focal or generalized weakness, numbness or tingling in arms or legs, generalized arthralgias or myalgias, back or neck pain, or night sweats. The review of systems is otherwise negative other than for that already noted above, and at least 10 systems have been reviewed. Physical Exam Physical Exam: The patient is awake, alert and oriented 3, normocephalic and atraumatic, lying in bed and in no acute distress. HEENT--PERRL, EOMI, mucous membranes and oropharynx dry. Neck--supple. No JVD. No bruits. Thyroid normal, trachea midline, no adenopathy. Heart--normal S1 and S2. No murmurs, rubs or gallops. Lungs--clear bilaterally, no respiratory distress, no accessory muscle use. Abdomen--normal bowel sounds and soft. Nontender. Nondistended, no hernias or masses, no organomegaly. Extremities--no cyanosis or clubbing. No edema. Dermatologic--normal skin turgor, normal color, no abnormal lymph nodes, no rash. Neurologic--cranial nerves II through XII grossly intact. Rheumatologic--normal range of motion. Psychiatric--normal affect. Results & Data Results & Data ([facility]) Vital Signs (Past 12 Hours) Vital Signs Temp Pulse Resp BP Pulse Ox 07/31/20 04:00 63 14 165/97 H 95 07/31/20 03:52 64 16 166/92 H 95 07/31/20 03:40 71 18 175/105 H 100 07/31/20 03:30 71 14 177/82 H 98 07/31/20 03:03 74 18 98 07/31/20 03:01 78 20 208/115 H 98 07/31/20 02:37 76 17 184/102 H 99 07/31/20 02:30 72 20 185/100 H 98 07/31/20 02:23 72 16 189/106 H 99 07/31/20 02:20 22 98 07/31/20 02:13 80 19 07/31/20 02:02 82 23 95 07/31/20 01:40 71 14 98 07/31/20 01:30 74 21 178/107 H 98 07/31/20 01:20 79 13 96 07/31/20 01:10 75 15 98 07/31/20 01:00 75 18 194/112 H 07/31/20 00:57 75 17 97 07/31/20 00:54 77 16 203/100 H 97 07/31/20 00:41 97.3 F L 78 18 184/109 H 95 Laboratory Results Laboratory Results WBC 6.54 K/uL (4.8-10.8) 07/31/20 00:58 RBC 4.10 M/uL (4.2-5.4) L 07/31/20 00:58 Hgb 11.7 g/dL (12.0-16.0) L 07/31/20 00:58 Hct 36.2 % (37-47) L 07/31/20 00:58 MCV 88.3 fL (80-100) 07/31/20 00:58 MCH 28.5 pg (25-34) 07/31/20 00:58 MCHC 32.3 g/dL (32-36) 07/31/20 00:58 RDW Std Deviation 46.0 fL (36.4-46.3) 07/31/20 00:58 RDW Coeff of [place] 14.2 % (11.5-14.5) 07/31/20 00:58 Plt Count 272 K/uL (130-400) 07/31/20 00:58 MPV 9.6 fL (7.4-10.4) 07/31/20 00:58 Immature Gran % (Auto) 0.2 % 07/31/20 00:58 Neut % (Auto) 52.0 % 07/31/20 00:58 Lymph % (Auto) 36.2 % 07/31/20 00:58 [place] % (Auto) 9.5 % 07/31/20 00:58 Eos % (Auto) 1.8 % 07/31/20 00:58 Baso % (Auto) 0.3 % 07/31/20 00:58 Neut # (Auto) 3.40 K/uL (1.4-6.5) 07/31/20 00:58 Lymph # (Auto) 2.37 K/uL (1.2-3.4) 07/31/20 00:58 [place] # (Auto) 0.62 K/uL (0.11-0.59) H 07/31/20 00:58 Eos # (Auto) 0.12 K/uL (0-0.5) 07/31/20 00:58 Baso # (Auto) 0.02 K/uL (0-0.2) 07/31/20 00:58 Immature Gran # (Auto) 0.01 K/uL (0.00-0.02) 07/31/20 00:58 PT 10.4 Seconds (9.0-12.0) 07/31/20 00:58 INR 1.0 (0.9-1.1) 07/31/20 00:58 APTT 23.4 Seconds (21.0-31.0) 07/31/20 00:58 PTT Ratio 0.8 07/31/20 00:58 Sodium 141 mmol/L (136-145) 07/31/20 00:58 Potassium 3.5 mmol/L (3.5-5.1) 07/31/20 00:58 Chloride 108 mmol/L (98-107) H 07/31/20 00:58 Carbon Dioxide 30 mmol/L (21-32) 07/31/20 00:58 Anion Gap 3.0 (3-11) 07/31/20 00:58 BUN 11 mg/dl (7-18) 07/31/20 00:58 Creatinine 0.68 mg/dl (0.6-1.2) 07/31/20 00:58 Est Cr Clr Drug Dosing Not Reportable 07/31/20 00:58 Est GFR ( Amer) 99.9 07/31/20 00:58 Est GFR (Non-Af Amer) 86.2 07/31/20 00:58 BUN/Creatinine Ratio 15.7 (10-20) 07/31/20 00:58 Glucose 102 mg/dl (70-99) H 07/31/20 00:58 Calcium 9.1 mg/dl (8.5-10.1) 07/31/20 00:58 Magnesium 2.3 mg/dl (1.8-2.4) 07/31/20 00:58 Total Bilirubin 0.4 mg/dl (0.2-1) 07/31/20 00:58 AST 19 U/L (15-37) 07/31/20 00:58 ALT 22 U/L (12-78) 07/31/20 00:58 Alkaline Phosphatase 68 U/L (45-117) 07/31/20 00:58 Troponin I < 0.015 ng/ml (0-0.045) 07/31/20 00:58 Total Protein 7.5 gm/dl (6.4-8.2) 07/31/20 00:58 Albumin 3.9 gm/dl (3.4-5.0) 07/31/20 00:58 Globulin 3.6 gm/dl (2.5-4.0) 07/31/20 00:58 Albumin/Globulin Ratio 1.1 (0.9-2) 07/31/20 00:58 Urine Color Yellow 07/31/20 02:13 Urine Appearance Clear (Clear) 07/31/20 02:13 Urine pH 7.5 (4.5-7.5) 07/31/20 02:13 Ur Specific [place] 1.017 (1.000-1.030) 07/31/20 02:13 Urine Protein Negative (Negative) 07/31/20 02:13 Urine Glucose (UA) Negative (Negative) 07/31/20 02:13 Urine Ketones Negative (Negative) 07/31/20 02:13 Urine Blood Negative (Negative) 07/31/20 02:13 Urine Nitrite Negative (Negative) 07/31/20 02:13 Urine Bilirubin Negative (Negative) 07/31/20 02:13 Urine Urobilinogen Negative (Negative) 07/31/20 02:13 Ur Leukocyte Esterase 1+ (Negative) H 07/31/20 02:13 Urine WBC (Auto) 1-5 /hpf (0-5) 07/31/20 02:13 Urine RBC (Auto) 0-4 /hpf (0-4) 07/31/20 02:13 U Hyaline Cast (Auto) 1-5 /lpf (0-5) 07/31/20 02:13 U Epithel Cells (Auto) 5-10 /lpf (0-5) H 07/31/20 02:13 Urine Bacteria (Auto) Negative (Negative) 07/31/20 02:13 SARS-CoV-2 Ag (Rapid) Negative (Negative) 07/31/20 04:06 Diagnostic Findings [facility] Patient: VARSHA TORRES (Female) : 47 Status: ER Date: 07/31/20 02:05 Room #: History: history of strokes, earlier tonight pt was unable to speak, symptoms have resolved Slices: [id number] Priors: Tech: Bailee Mohr @ [phone] Exams: CT HEAD, CTA HEAD, CTA NECK Contrast: IV Amt: 120 cc's Accession Numbers: [id number], [id number], [id number] Preliminary Findings Only See Final Report For Complete Findings CT HEAD: Atrophy and advanced white matter changes. Chronic infarcts within the left cerebellum and left basal ganglia. No intracranial hemorrhage. No grossly evident acute transcortical infarct. CTA HEAD: No steno-occlusive disease. CTA NECK: No steno-occlusive disease. Radiologist: Taz Melton MD Study ready at 02:11 and initial results transmitted at 02:18 *This report constitutes a preliminary interpretation only. Non-acute findings felt to be unrelated to the clinical presentation may not be discussed in this report. The study will be interpreted and a final report will be generated by the local Radiologist the following shift. To reach the hospital radiology department call [phone]. If a discrepancy is found between the preliminary and final interpretations of this study, please notify us via our Client Portal at [email or web address] can also fax this report with a description of the discrepancy, or include the final report, to our daytime fax number [phone].If faxing, please indicate the severity of discrepancy using one of the following categories: [ ] 1 - Agree/Informational [ ] 2 - Unlikely to Affect Management [ ] 3 - Possible Eventual Change of Management [ ] 4 - Probable Immediate Change of Management For all other patient related information, please fax us at [phone]. [id number] Code Status & VTE Plan Code Status Full code VTE Prophylaxis Plan VTE Prophylaxis will be ordered: Yes PG Care Time/CCT Total # of Minutes Spent Total Time Spent with Patient: Total time spent is greater than 50% in coordination of care (as documented) at patient's floor/unit and/or counseling patient: Coding Level of Care Code 35401 Initial Inpt Care Lvl 3 Diagnoses TIA (transient ischemic attack) G45.9 H/O: stroke Z86.73 GERD (gastroesophageal reflux disease) K21.9 Vascular dementia F01.50 Anxiety and depression F41.9; F32.9 High cholesterol E78.00 Hypertension I10 Hypertension type: essential hypertension (1) Hypertension Hypertension type: essential hypertension Qualified Code(s): I10 - Essential (primary) hypertension
[2020-07-31] MEDS ORDERED: PHARMACIST DISCHARGE MED REC CONSULT PRN ×2 (04:39→05:20)
[2020-07-31] MEDS ORDERED: hydrALAZINE HCL 20 MG/ML VIAL IV PRN (04:45)
[2020-07-31] MEDS ORDERED: ZOLPIDEM TARTRATE 5 MG TAB PO PRN (05:20)
[2020-07-31] MEDS ORDERED: ONDANSETRON INJ 2 MG/ML 2 ML VIAL IV PRN (05:20)
[2020-07-31] MEDS: ACETAMINOPHEN 325 MG TAB PO PRN ×2 (07:21→14:30)
--- NOTE | 2020-07-31 07:49 | CT Scan Report ---
CT angio neck with con CLINICAL HISTORY: Stroke Like Symptoms COMPARISON STUDY: 09/19/2018 TECHNIQUE: CT angiography was performed from the aortic arch to the skull base. MIP imaging was perfo rmed. The patient was scanned in a dynamic helical fashion during intravenous administration of 120 c c of Optiray 320. A dose lowering technique was utilized adhering to the principles of ALARA. CT DOSE: 1150.29 mGy.cm Technique: CT angiogram of the carotid and vertebral arteries was obtained using intravenous contrast and 3-D reconstruction. NASCET criteria was utilized. Findings: The right carotid revealed no evidence of aneurysm and no evidence of dissection. There is no evidenc e of hemodynamic significant stenosis. The left carotid revealed no evidence of hemodynamic significant stenosis. There is no evidence of an eurysm. There is no evidence of dissection. There is no evidence of hemodynamically significant vertebral stenosis. There is no evidence of verte bral dissection. IMPRESSION: No evidence of hemodynamically significant carotid or vertebral artery stenosis. No evidence of disse ction. ACT 112: Negative or not required by law. Electronically signed by: Franc Mims M.D. 07/31/2020 7:48 AM
--- NOTE | 2020-07-31 07:52 | CT Scan Report ---
CT angio head w con CLINICAL HISTORY: Stroke Like Symptoms TECHNIQUE: CT angiography of the head was performed in a dynamic helical fashion during intravenous a dministration of 120 cc of Optiray 320. MIP imaging was performed. A dose lowering technique was util ized adhering to the principles of ALARA. CT DOSE: COMPARISON STUDY: 09/19/2018 FINDINGS: There are no lesion suspicious for aneurysm. There are no major intracranial branch occlusi ons. The dural venous sinuses appear patent. IMPRESSION: Unremarkable CT angiography of the brain. ACT 112: Negative or not required by law. Electronically signed by: Franc Mims M.D. 07/31/2020 7:50 AM
--- NOTE | 2020-07-31 07:52 | CT Scan Report ---
CT OF THE HEAD WITHOUT CONTRAST CLINICAL HISTORY: Stroke Like Symptoms COMPARISON STUDY: Head CT April 11, 2019. TECHNIQUE: Helical axial images of the head were obtained without IV contrast. Automated exposure con trol was utilized for the study. A dose lowering technique was utilized adhering to the principles o f ALARA. FINDINGS: No acute intracranial hemorrhage, midline shift or mass effect is present. Mild ventricular dilatation is unchanged. Basal cisterns are patent. There are no extra axial collections. Extensive white matter hypodensities are unchanged and suggest small vessel disease. Old infarcts within the bi lateral cerebellar hemispheres are again noted. There is an old infarct within the left basal ganglia . There are no findings to suggest acute dural sinus thrombosis or acute territorial infarct. No calv arial fracture is present. There are no suspicious calvarial lesions. IMPRESSION: 1. No acute intracranial findings. 2. Old infarcts within the bilateral cerebellar hemispheres. Extensive small vessel disease. ACT 112: Negative or not required by law. Electronically signed by: Nik Bolton M.D. 07/31/2020 7:51 AM
[2020-07-31] MEDS ORDERED: ENOXAPARIN INJ 30 MG/0.3 ML SYR SQ SCH (09:00)
[2020-07-31] MEDS ORDERED: ATORVASTATIN 40 MG TAB PO SCH (09:00)
[2020-07-31] MEDS ORDERED: PANTOprazole 40 MG TAB PO SCH (09:00)
[2020-07-31] MEDS ORDERED: CHOLECALCIFEROL 1,000 UNITS 25 MCG TAB PO SCH (09:00)
[2020-07-31] MEDS ORDERED: DOCUSATE SODIUM 100 MG CAP PO SCH (09:00)
[2020-07-31] MEDS ORDERED: CLOPIDOGREL BISULFATE 75 MG TAB PO SCH (09:00)
[2020-07-31] MEDS ORDERED: ASPIRIN 81 MG ECTAB PO SCH (09:00)
[2020-07-31] MEDS ORDERED: CYANOCOBALAMIN 500 MCG TABLET (VITAMIN B-12) PO SCH (09:00)
--- NOTE | 2020-07-31 10:52 | Neurology Consultation ---
Date of Consultation July 31, 2020 Assessment & Plan (1) TIA (transient ischemic attack): (2) Vascular dementia: (3) Hypertensive emergency: (4) Frequent headaches: patient had the acute onset of expressive aphasia almost 12 hours ago. Clinically, she is markedly improved today, but does have some word-finding issues naming objects. Otherwise, she has no focal neurologic findings, meningeal signs, or encephalopathy. There is some mild underlying dementia. CT scan of the head and CT angiography of the head and neck were unremarkable. Although I cannot exclude a small stroke, these TIA-like symptoms are probably related to significant hypertension. Patient has a history of stroke in the past on clopidogrel. She has a known PFO. Recommendations: 1. Keep on dual antiplatelet therapy of 81 milligram aspirin and 75 milligrams clopidogrel daily, for now. 2. I see no need for anticoagulation at this time. 3. treat headaches with usual medication. 4. Control blood pressure as you are doing, aiming for a mean arterial pressure of 95-100. 5. physical, occupational, and speech therapy consult. 6. Awaiting MRI of the brain. Overall, I spent a total of 60 minutes with this case including review of records, review of CT films, direct evaluation the patient bedside, and discussion of the case with the patient at bedside and Dr. Turk including differential diagnosis and treatment options. History of Present Illness Reason for Consultation: Patient is a 75-year-old, who I was asked to see at the request of Dr. Tena for neurologic consultation regarding acute expr essive aphasia. Requesting Physician: Dr. Tena Attending Physician: Gregory Turk MD History of Present Illness In September of 2018, patient had a right periventricular stroke. She saw Dr. Fitch who initiated Plavix. MRI showed an old left internal capsule stroke and other nonspecific small vessel ischemic disease. At that time, CT angiography of the head neck were unremarkable and a regular echocardiogram was unremarkable as well. There was no atrial fibrillation or cardiac dysrhythmia. she was doing well on Plavix until April of 2019. On April 07 she fell and fractured her right hip and right ankle. Surgical correction was remarkable for severe anemia postop with confusion for at least 24 hours after surgery. Her hemoglobin fell down to 5.9 and hematocrit 18.8. She was transfused 2 units. She had of having expressive and receptive aphasia with no recall of the events. MRI of the brain showed a rather large left cerebellar hemispheric stroke and medial right cerebellar hemispheric stroke with multiple tiny scattered acute strokes bilaterally in multiple vascular distributions. All of this was consistent with embolic phenomena. We avoided aggressive anticoagulation because of the size of her strokes but she was maintained on Lovenox. She was put on high-dose atorvastatin. Transesophageal echocardiogram showed an atrial septal aneurysm and PFO. She had right-sided weakness and has been getting physical therapy twice a week. She walks with a walker or a cane. Her speech and mentation have been reasonable although she probably has a mild vascular dementia underlying. The patient has a history of intermittent ( near daily ) headaches for months to years. On July 30 in the evening she was watching TV and somewhere between 07 04 and midnight she had the sudden onset of inability to speak or answer. She could mumble some words out but they were not correct. She knew what she wanted to say and recalled everything. There was no pain but she had a right-sided headache. She had no new weakness or numbness or new balance problems. She had no vision or photophobia issues. She arrived to the emergency room at 0041 on 07/31, with a temperature 36.3, pulse 78 regular, respiratory rate 18 and regular, blood pressure 184/109 into 2 saturation 95 percent. She had multiple elevated blood pressure readings in the emergency room. Neurologic examination was unremarkable and she had no speech issues in the ER within normal neurologic examination otherwise . She had a right frontal / orbital headache. CBC showed mild anemia and Chem profile was unremarkable. CT scan of the head was unremarkable. CT angiography of the head and neck were unremarkable. This morning she has had no further issues or problems but still has a right orbital headache with shooting pain and no nausea or vomiting. Allergies Allergy/AdvReac Type Severity Reaction Status Date / Time No Known Drug Allergies Allergy Unknown . Verified 07/31/20 00:58 Adhesive Tape Allergy Unknown Unknown Uncoded 07/31/20 00:58 Home Medications Medication Instructions Recorded Confirmed Type clopidogrel 75 mg PO QAM #30 tab 09/18/18 07/31/20 Rx cholecalciferol (vitamin D3) 1,000 unit PO QAM #30 tab 11/13/18 07/31/20 Rx [Vitamin D3] docusate sodium 100 mg PO BID #60 cap 04/11/19 12/27/20 Rx cyanocobalamin (vitamin B-12) 1,000 mcg PO QAM 12/14/18 07/31/20 History [Vitamin B-12] atorvastatin 80 mg PO QAM 03/06/19 07/31/20 History pantoprazole 40 mg PO QAM 03/06/19 07/31/20 History polyethylene glycol 3350 [Miralax] 17 g PO HS 03/06/19 07/31/20 History duloxetine 30 mg PO BID 07/31/20 07/31/20 History hydrocodone-acetaminophen 1 tab PO Q6 07/31/20 07/31/20 History ibandronate 150 mg PO MONTHLY 07/31/20 07/31/20 History lisinopril 5 mg PO DAILY 07/31/20 07/31/20 History potassium chloride 20 meq PO DAILY 07/31/20 07/31/20 History zolpidem 5 mg PO HS PRN 07/31/20 07/31/20 History Patient History Medical History (Updated 07/31/20 @ 10:48 by Ramiro Salcido MD) Acid reflux Anxiety Aphasia H/O FROM STROKE 09/2018. Breast cancer 2000. RIGHT LUMPECTOMY. Chronic back pain Closed fracture of right distal tibia Constipation reason for scheduled colonoscopy Degenerative disc disease Depression Deviated septum High cholesterol Hypertension On anticoagulant therapy Osteoarthritis Peptic ulcer disease H/O BLEEDING ULCERS Stroke SEPTEMBER 17, 2018. TREATED AT [facility]. FOLLOWED WITH DR FITCH. SHORT TERM MEMORY DIFFICULTIES, reason for plavix Stroke-like symptoms 09/2018 Transient ischemic attack (TIA) H/O. LAST EPISODE WAS OCTOBER 2017 Surgical History Fusion of spine LUMBAR H/O: hysterectomy History of ankle surgery History of arthroscopy BILATERAL KNEE ARTHROSCOPY History of back surgery (7 TOTAL) History of carpal tunnel release BILATERAL History of cataract surgery BILATERAL History of colonoscopy History of discectomy LUMBAR x4 History of esophagogastroduodenoscopy (EGD) History of open reduction and internal fixation (ORIF) procedure right ankle fx---hardware in place Hx of lumpectomy RIGHT Status post ORIF of fracture of ankle Family History Brother Stroke Mother , age 80 of heart issues. Coronary heart disease [place] Father , age 36 in a motor vehicle accident No problems noted. Other No family history of adverse response to anesthesia Social History Smoking Status: Never smoker Second Hand Exposure: No; Hx Alcohol Use: No Hx Substance Use: No Preferred Language: Spanish Communication Ability: Effective Visual Impairment: No Limitations Cafeteria Manager Required: No Beliefs That Will Affect Care: None marital status: Current Living Situation: Spouse current occupational status: previously employed Feels Safe at Home: Yes Assistive Devices: Denture - Upper and Glasses Review of Systems Constitutional: no fever, no fatigue and no weakness Eyes: no diplopia, no eye pain and no worsening vision Ear, Nose, Mouth, Throat: no ear pain, no tinnitus, no hearing loss, no dizz iness, no hoarseness and no dysphagia Respiratory: no cough and no dyspnea Cardiovascular: no chest pain, no palpitations and no lightheadedness Gastrointestinal: no abdominal pain, no nausea and no vomiting Genitourinary: no dysuria, no urinary frequency and no urinary incontinence Musculoskeletal: no back pain, no neck pain, no radicular pain, no joint pain and no myalgia Integumentary: no rash and no lesions Neurologic: + headache(s); no gait abnormality, no localized weakness, no generalized weakness, no tingling, no numbness, no tremor(s), no abnormal movements, no abnormal speech, no confusion and no memory loss Psychiatric: no depression, no irritability, no anxiety, no difficulty concentrating, no confusion and no hallucinations Endocrine: no fatigue and no flushing Hematologic / Lymphatic: no easy bleeding and no easy bruising Allergy / Immunological: no urticaria and no problem reported Exam (Neuro) Physical Exam: The patient is left-handed. The patient is awake, alert, and attentive. Speech is normal without any aphasia or dysarthria. She can name most tested objects, repeat phrases, and has normal spontaneous speech. Mentation and thought processes are intact, with orientation to person, place and time, and normal fund of knowledge. Attention and concentration are normal. Mood and affect are normal and appropriate. General appearance and grooming are normal. Short and long-term memory are reasonable. The discs are sharp with positive venous pulsations bilaterally. There are no exudates, hemorrhages, or blood vessel changes seen. Pupils are 4 mm bilaterally and reactive to light. Extraocular eye muscles are intact without nystagmus. Visual acuity and visual hanson seem normal grossly to confrontation. There are no deficits to sensation in the face in all 3 distributions of the fifth cranial nerve bilaterally. Corneal reflexes are positive bilaterally. Facial strength was normal bilaterally. There was a mild right facial droop at the corner of the mouth which is old from her previous stroke. Hearing seems normal to whisper and finger rub bilaterally. Palate moves well without asymmetry. There is normal sternocleidomastoid and trapezius (shoulder shrug) strength bilaterally. Tongue is midline with good strength bilaterally. Neck has a full range of motion without discomfort. There are no cervical bruits bilaterally. There are no cranial or ocular bruits. Heart is without murmur. There is a regular rhythm and rate. Cervical, thoracic, and lumbar spine are nontender to palpation. Gait is cautious and needs support of one. Balance is normal eyes open . With outstretched arms there is no drift. There are no resting, postural, or action tremors. There is no ataxia with finger to nose testing. There is good facility in the hands. No other abnormal involuntary movements are noted. Motor strength is 5/5 diffusely in the arms bilaterally including deltoids, biceps, triceps, brachioradialis, wrist flexors and extensors, explosive expert, and intrinsic hand muscles. Motor strength is 5/5 diffusely in the legs bilaterally including hip flexors, quadriceps, hamstrings, gastrocnemius, tibialis anterior, tibialis posterior, and Peroneii muscles. Toe extensors are normal and there is good bulk in the extensor digitorum brevis muscles bilaterally. The limbs have good tone without rigidity or spasticity. There is no atrophy noted in the muscles. Muscle bulk is normal, there is no tenderness to palpation, no myotonia to percussion, and no fasciculations seen. Sensory examination is intact to touch and pin throughout all 4 limbs diffusely. Reflexes are 1/4 in the biceps, triceps, brachioradialis, quadriceps, and Achilles tendons bilaterally. There is no clonus bilaterally. Toes are downgoing with plantar stimulation bilaterally. Peripheral pulses are present and of normal quality distally in all 4 limbs. There is no peripheral edema noted in the limbs. Results & Data ([facility]) Vital Signs (Past 12 Hours) Vital Signs Temp Pulse Pulse Resp BP BP Pulse Ox 07/31/20 07:06 36.9 C 66 20 166/78 H 96 07/31/20 06:10 162/93 H 07/31/20 05:22 36.9 C 64 22 183/100 H 98 07/31/20 04:36 65 18 98 07/31/20 04:00 63 14 165/97 H 95 07/31/20 03:52 64 16 166/92 H 95 07/31/20 03:40 71 18 175/105 H 100 07/31/20 03:30 71 14 177/82 H 98 07/31/20 03:03 74 18 98 07/31/20 03:01 78 20 208/115 H 98 07/31/20 02:37 76 17 184/102 H 99 07/31/20 02:30 72 20 185/100 H 98 07/31/20 02:23 72 16 189/106 H 99 07/31/20 02:20 22 98 07/31/20 02:13 80 19 07/31/20 02:02 82 23 95 07/31/20 01:40 71 14 98 07/31/20 01:30 74 21 178/107 H 98 07/31/20 01:20 79 13 96 07/31/20 01:10 75 15 98 07/31/20 01:00 75 18 194/112 H 07/31/20 00:57 75 17 97 07/31/20 00:54 77 16 203/100 H 97 07/31/20 00:41 36.3 C L 78 18 184/109 H 95 PG Care Time/CCT Total # of Minutes Spent Total Time Spent with Patient: Total time spent is greater than 50% in coordination of care (as documented) at patient's floor/unit and/or counseling patient: Coding Level of Care Code 07730 Initial Inpt Care Lvl 3 Diagnoses TIA (transient ischemic attack) G45.9 Vascular dementia F01.50 Hypertensive emergency I16.1 Frequent headaches R51.9 Time Spent (min) 60
--- NOTE | 2020-07-31 12:58 | Electrocardiogram Report ---
Test Reason : Blood Pressure : / mmHG Vent. Rate : 078 BPM Atrial Rate : 078 BPM P-R Int : 214 ms QRS Dur : 074 ms QT Int : 436 ms P-R-T Axes : 038 -22 009 degrees QTc Int : 497 ms Poor data quality, interpretation may be adversely affected Sinus rhythm with 1st degree A-V block Low voltage QRS Prolonged QT Abnormal ECG When compared with ECG of 07-APR-2019 03:35, No significant change was found Confirmed by Spenser Arceo ([id number]) on 07/31/2020 12:57:41 PM Referred By: REFERRED SELF Confirmed By:Spenser Arceo
--- NOTE | 2020-07-31 13:05 | Magnetic Resonance Report ---
MRI OF THE BRAIN WITHOUT CONTRAST CLINICAL HISTORY: Transient ischemic attack. Expressive aphasia COMPARISON STUDY: CT scan dated 07/31/2020, MRI the brain dated 04/10/2019 FINDINGS: Sagittal T1, axial diffusion, proton density and T2 weighted axial, coronal FLAIR, and axial T1-weigh fabien images were acquired. No intra or extra-axial mass lesions are visualized Axial diffusion-weighted images reveal no evidence of acute or subacute infarction. There is mild ventricular dilatation which is felt to be secondary to volume loss Proton density T2-weighted and FLAIR images reveal extensive foci of increased T2 signal within the w juan matter, likely on a small vessel basis. There are old bilateral cerebellar infarcts. There are s cattered tiny supratentorial lacunar infarcts. There are no abnormal flow voids. IMPRESSION: 1. No acute intracranial findings 2. No evidence of acute or subacute infarction 3. Moderately severe white matter disease likely on a small vessel ischemic basis. Old bilateral cere bellar infarcts. Scattered lacunar infarcts. 4. No evidence of intracranial mass on this noncontrast study. ACT 112: Negative or not required by law. Electronically signed by: Franc Mims M.D. 07/31/2020 1:04 PM
[2020-07-31 15:08] VITALS: BP 166/81; PULSE 83; TEMP 97.9; O2SAT 94
[2020-07-31] MEDS ORDERED: STROKE PATIENT DISCHARGE STA (16:20)
--- NOTE | 2020-07-31 17:05 | Discharge Summary ---
Date of Service July 31, 2020 Admission HPI Per Admitting Provider The patient is a 75-year-old female with a past medical history including stroke, osteoarthritis, degenerative disc disease, GERD, hypokalemia, acute blood loss anemia, vascular dementia, delirium, acute left-sided weakness, acute encephalopathy, closed fracture right hip status post fall, syncope, iron deficiency anemia, closed fracture of right distal fibula, vitamin D deficiency, anxiety with depression, hypertension, GERD, breast cancer and chronic back pain. Her noted last evening that she was having the above symptoms, and because of the intensity and persistence of the symptoms longer than usual, he brought her to the emergency department for assessment. Principal Diagnosis TIA Discharge Exam Constitutional WD/WN, vitals as above Eyes EOM intact bilaterally; no conjunctival abnormality ENMT external ear and nose normal, oropharynx normal Neck trachea midline, no thyromegaly normal visual inspection Respiratory normal respiratory effort, lungs clear to auscultation no respiratory distress Cardiovascular RRR, no murmur, no edema Gastrointestinal (Abdomen) Inspection/Auscultation: abdomen normal to inspection; abdomen not distended Musculoskeletal no cyanosis or clubbing, extremities motor strength 5/5 Skin no rashes, warm and dry Neurologic moves all extremities and awake Psychiatric Orientation: alert, oriented to person and cooperative Discharge Data Allergies Allergy/AdvReac Type Severity Reaction Status Date / Time No Known Drug Allergies Allergy Unknown . Verified 07/31/20 00:58 Adhesive Tape Allergy Unknown Unknown Uncoded 07/31/20 00:58 Consultations 07/31/20 04:39 Consult Case Management - Discharge Planning Routine Consult Neurology Routine 07/31/20 05:20 Consult Case Management - Discharge Planning Routine Consult Case Management - Discharge Planning Routine Consult Neurology Routine Ordered Studies 07/31/20 01:08 CT angio head w con Urgent CT angio neck with con Urgent CT head/brain wo con Urgent 07/31/20 05:20 MR brain wo con Routine Hospital Course (1) TIA (transient ischemic attack): Admitted for TIA. Symptoms all resolved by same day. Primary symptoms were garbled speech, expressive aphasia, memory loss. - MRI brain did NOT show any stroke or acute change. Significant small-vessel disease. - CTA of head and neck are both negative Seen by neurology - Recommend ASA/Plavix x 3 weeks, then continue Plavix only. - Discharged on lisinopril 10 mg PO HS as her BP control was sub-optimal. Already on high-dose statin. (2) H/O: stroke: See above (3) GERD (gastroesophageal reflux disease): Continue pantoprazole 40 mg every morning (4) Vascular dementia: Vascular dementia/anxiety and depression- Continue duloxetine 30 mg p.o. twice daily. Hold as needed zolpidem at bedtime (5) Anxiety and depression: See above (6) High cholesterol: Continue atorvastatin 80 mg every morning (7) Hypertension: Permissive hypertension as noted above Total Time Total Time Spent Total Time Spent (In Minutes): 35 Discharge Plan Discharge Items Patient Disposition: Home - Self-Care Reason For Visit: TIA Discharge Diagnosis: TIA Activity: Resume your previous activity Non-emergency contact: Primary Care Provider and Neurologist Call non-emergency contact if: your symptoms worsen and your temperature is above 101 Follow-up/Referrals: Ramiro Salcido MD [Physician] - (Please follow up with Dr. Salcido or another neurolog ist in 3-4 weeks.) Elizabeth Ramirez CRNP [Primary Care Provider] - Diet: Heart Healthy Addtl Attending Provider Instructions: Ms. Meza, You were admitted to the hospital with trouble speaking. We feel this was probably a TIA (sometimes called a "mini-stroke"). Luckily, you regained all function and there was NO stroke on the MRI. Dr. Salcido would like you to take a baby aspirin (81 mg) for 3 weeks. This is in ADDITION to your current Plavix. After 3 weeks, you can stop your baby aspirin and stick with your Plavix. In addition, you should take DOUBLE your lisinopril as your blood pressure remained quite high in the hospital. I sent a new 10 mg dose to your pharmacy, but you can also double your current 5 mg pills until they are gone. You should take these tablets BEFORE bedtime as that has been shown to improve their benefit. If this occurs again, you need to come to the hospital. If it comes and goes quickly, please call your neurologist for recommendations. Pending Studies at Discharge: No Stand-Alone Forms: Medications to Prevent Stroke, My [facility] [employer], Smoking Cessation Medications and DC Order Prescriptions: New aspirin 81 mg tablet,chewable 81 mg PO DAILY Qty: 21 RF: 0 lisinopril 10 mg tablet 10 mg PO HS Qty: 30 RF: 1 Continued cyanocobalamin (vitamin B-12) [Vitamin B-12] 1,000 mcg Tablet 1,000 mcg PO QAM RF: 0 hydrocodone-acetaminophen 5-325 mg tablet 1 tab PO Q6 RF: 0 duloxetine 30 mg capsule,delayed release(DR/EC) 30 mg PO BID RF: 0 zolpidem 5 mg tablet 5 mg PO HS PRN (Reason: Sleep) RF: 0 ibandronate 150 mg tablet 150 mg PO MONTHLY RF: 0 potassium chloride 20 mEq tablet,ER particles/crystals 20 meq PO DAILY RF: 0 clopidogrel 75 mg Tablet 75 mg PO QAM Qty: 30 RF: 0 docusate sodium 100 mg Capsule 100 mg PO BID Qty: 60 RF: 0 cholecalciferol (vitamin D3) [Vitamin D3] 1,000 unit Tablet 1,000 unit PO QAM Qty: 30 RF: 0 polyethylene glycol 3350 [Miralax] 17 gram/dose Powder 17 g PO HS RF: 0 atorvastatin 80 mg tablet 80 mg PO QAM RF: 0 pantoprazole 40 mg tablet,delayed release (DR/EC) 40 mg PO QAM RF: 0 Discharge Orders: Discharge Order (Routine); Ordered 07/31/20 Ordered By: Gregory Turk Admission Data Admit Date/Time: 07/31/20 04:15 Attending Provider: Gregory Turk Admit Provider: Alphonso Tena Primary Care Provider: Elizabeth Ramirez Other Providers: Coy Fitch Other Interventions: Discharge Summary Assessment (RN) Last Done: 07/31/20 16:24 Coding Level of Care Code D/C Day Management >30 mins Diagnoses TIA (transient ischemic attack) G45.9 H/O: stroke Z86.73 GERD (gastroesophageal reflux disease) K21.9 Vascular dementia F01.50 Anxiety and depression F41.9; F32.9 High cholesterol E78.00 Hypertension I10 Hypertension type: essential hypertension
--- NOTE | 2020-07-31 17:29 | Pharmacy Report ---
Pharmacist Stroke Counseling - Date of Service July 31, 2020 - Scope: Pharmacy has been consulted to provide medication discharge counseling for this patient admitted with transient ischemic attack as per the Pharmacist Discharge Counseling for Stroke Patients Protocol. - Medications on Discharge: Home Medications Medication Instructions Recorded Confirmed cyanocobalamin (vitamin B-12) 1,000 mcg PO QAM 12/14/18 07/31/20 [Vitamin B-12] atorvastatin 80 mg PO QAM 03/06/19 07/31/20 pantoprazole 40 mg PO QAM 03/06/19 07/31/20 polyethylene glycol 3350 [Miralax] 17 g PO HS 03/06/19 07/31/20 duloxetine 30 mg PO BID 07/31/20 07/31/20 hydrocodone-acetaminophen 1 tab PO Q6 07/31/20 07/31/20 ibandronate 150 mg PO MONTHLY 07/31/20 07/31/20 potassium chloride 20 meq PO DAILY 07/31/20 07/31/20 zolpidem 5 mg PO HS PRN 07/31/20 07/31/20 New Rx's Medication Instructions Recorded clopidogrel 75 mg PO QAM #30 tab 09/18/18 cholecalciferol (vitamin D3) 1,000 unit PO QAM #30 tab 11/13/18 [Vitamin D3] docusate sodium 100 mg PO BID #60 cap 11/13/18 aspirin 81 mg PO DAILY #21 tab 07/31/20 lisinopril 10 mg PO HS #30 tab 07/31/20 - Action: The above medications, specifically ones for stroke treatment/prophylaxis, have been reviewed in detail with the patient and/or patient healthcare representative(s) prior to discharge. This includes indication, common adverse reactions, drug interactions, and medication administration. Medication counseling has been employed using the teach-back method to ensure understanding. - Outcome: The patient and/or patient healthcare representative(s) have demonstrated understanding of the medications. Additional comments: * Spoke with patient's , Darell ([phone]), who manages her medicatio ns. Per nursing, patient is forgetful. * Explained medication changes. Darell confirms patient was on lisinopril 5mg HS prior to admission. He understands that he can give her 5mg x 2 tablets to make new dose of 10mg. Recommend to monitor BP and f/u with PCP; lisinopril may need to be adjusted further to target BP <130-140/80-90 (unsure what her goal BP is). * Darell states they already have aspirin 81mg tablets at home and that she was previously taking aspirin, but this was D/C'd. Advised to restart aspirin 81mg daily with Plavix for 3 weeks only, then patient will be back to Plavix monotherapy. * Darell aware to monitor for bleeding/bruising with dual anti-platelet therapy. Thank you for allowing pharmacy to be involved in the care of this patient. Please call [phone] with any additional questions
[2020-07-31] MEDS ORDERED: POLYETHYLENE (MIRALAX) 17 GM PACK PO SCH (21:00)
== END 2020-07-31 17:10 | disposition home or self-care (01) ==
LOC: ED 00:36 → INTOOBSV 04:15 → 2S 04:15 → SUATTDRO 04:15 → 2S 04:36

== ENCOUNTER 2021-08-06 10:34 | Inpatient (IN) ==
--- NOTE | 2021-08-06 10:59 | CT Scan Report ---
CT SCAN OF THE BRAIN WITHOUT IV CONTRAST CLINICAL HISTORY: Change in mental status. COMPARISON STUDY: CT of the brain dated 07/31/2020. TECHNIQUE: Unenhanced axial CT scan of the brain is performed from the vertex to the skull base. A do se lowering technique was utilized adhering to the principles of ALARA. CT DOSE: 614.27 mGy.cm FINDINGS: Brain parenchyma: There are age-related involutional changes noting advanced confluent subcortical a nd periventricular microangiopathic change. Foci of bilateral cerebellar encephalomalacia are consist ent with remote infarcts. A chronic lacunar infarct is noted in the left basal ganglia. There is no h emorrhage, mass effect, or evidence of acute territorial ischemia by CT criteria. Matthews-white matter d ifferentiation is preserved. No extra-axial fluid collection is seen. Ventricles, sulci, cisterns: Prominent secondary to involutional change. Intracranial vasculature: There is atherosclerotic calcification of the cavernous carotid and vertebr al arteries. Calvarium: Unremarkable. Sinuses and mastoids: The visualized paranasal sinuses are clear. The mastoid air cells are well pneu matized. Orbits: The bony orbits are grossly intact. IMPRESSION: Senescent changes as above with no hemorrhage, mass effect, or evidence of acute territor ial ischemia by CT criteria. ACT 112: Negative or not required by law. Electronically signed by: Miguel Hernandez M.D. 08/06/2021 10:58 AM
--- NOTE | 2021-08-06 11:14 | Emergency Department Note ---
Impression & Plan Acute alteration in mental status, Stroke-like symptoms, Acidosis, lactic ED Provider Note NAME: VARSHA TORRES AGE: 76 SEX: F : 1945 ARRIVES VIA: Ambulance INFORMANT: Patient, EMS personnel, the patient significant other ED PROVIDER(S): Spenser Driscoll DO CHIEF COMPLAINT: Altered mental status HPI: The patient is a 76-year-old female who presented to the emergency department for an evaluation of altered mental status. The patient has been having symptoms since yesterday. According to the prehospital personnel the patient has been not herself ever since yesterday according to her significant other. They were called to the house specifically today because the patient started having worsening symptoms and appeared to be confused. There is also concern that she may have had a syncopal episode and could be having a stroke. The patient has a history of stroke in the past. According to the prehospital personnel the patient was using the bathroom at the bedside when she "slumped forward" and did not appear to be in her usual mental status. There is no vomiting. The patient has been complaining of nausea. She was: Diaphoretic according to the significant other. The prehospital personnel noted the patient may have had a gaze preference as well as a facial droop. Upon arrival of these symptoms have resolved. There is been no recent trauma. There is been no fever. There is been no reported polyuria or polydipsia. ROS: See above HPI for pertinent positives & negatives. A total of 10 systems reviewed and were otherwise negative. PAST MEDICAL HISTORY: See Below PAST SURGICAL HISTORY: See Below FAMILY HISTORY: See Below SOCIAL HISTORY: See Below HOME MEDICATIONS: See Below ALLERGIES: See Below VITALS: See Below PHYSICAL EXAMINATION: GENERAL: The patient is awake looking around the room. She appears somewhat anxious. EYES: The conjunctivae are clear. The pupils are round and reactive. EARS, NOSE, MOUTH AND THROAT: The nose is without any evidence of any deformity. Mucous membranes are dry. NECK: The neck is nontender and supple. RESPIRATORY: Normal respiratory effort is noted there is no evidence of wheezing rhonchi or rales CARDIOVASCULAR: Regular rate and rhythm noted there no murmurs rubs or gallops normal S1 normal S2. GASTROINTESTINAL: The abdomen is soft. Abdomen is nontender. MUSCULOSKELETAL/EXTREMITIES: There is no evidence of gross deformity full range of motion is noted in the hips and shoulders. SKIN: Skin is cold and dry. There is no significant pedal edema. NEUROLOGIC: The patient is awake and looking around the room. She does answer questions with very short sentences but does not appear to be oriented to place or situation. She does respond to her name. She is moving all extremities well. There is no gaze preference. MEDICAL DECISION MAKING: The patient is a 76-year-old female who presented to emergency department by ambulance. Initially the patient was evaluated by the prehospital personnel. She was felt to be a possible stroke. She had an acute onset of altered mental status but then also had some symptoms of could be related to strokelike symptoms. The patient was evaluated in the emergency department initially. She was awake and alert. Her presented to the emergency department to be with her and states that she is currently at her baseline mental status at this time. She was initially hypotensive. She was treated with IV fluids in the emergency department. She was reevaluated multiple times. She appeared to have a possible infection with an elevated C-reactive protein elevated procalcitonin and elevated white blood cell count. She was treated with empiric antibiotics and IV fluids. She will did not have a definite infection on her initial work- up including no definite urine infection or pneumonia. Covid swab was negative. Because the patient's findings I [facility] have agreed to evaluate the patient in the emergency department for further management and disposition. Triage Nursing notes reviewed. Prior medical records reviewed Vital Signs: reviewed and remarkable for initial hypotension. Differential diagnosis: Infection, hypoglycemia, electrolyte abnormalities, overdose, toxicologic, cardiac sources, intracerebral event, neurologic, trauma, as well as other pathologies. ER treatment provided: See below Diagnostics interpreted by me: ECG: EKG was obtained in the emergency department. My interpretation is sinus rhythm at 93 bpm. First-degree AV block was noted. There were no PVCs noted. Diffuse ST segment abnormalities were noted especially inferior and low lateral leads. This was compared to a tracing from July [id number]. No changes were noted. Cardiac Monitoring: An order was placed for continuous cardiac monitoring. The monitor shows a rate of 89 bpm with sinus rhythm. Laboratory studies: As stated above and show below. Imaging studies: See below Consultation(s): I discussed this case with Damian who is on-call for the [place] hospitalist group. They will evaluate the patient in the emergency department. Past Med/Surg History Medical History Acid reflux Anxiety Aphasia H/O FROM STROKE 09/2018. Breast cancer 2000. RIGHT LUMPECTOMY. Chronic back pain Closed fracture of right distal tibia Constipation reason for scheduled colonoscopy Degenerative disc disease Depression Deviated septum Fracture of greater trochanter of right femur High cholesterol Hypertension On anticoagulant therapy Osteoarthritis Peptic ulcer disease H/O BLEEDING ULCERS Right leg pain Stroke SEPTEMBER 17, 2018. TREATED AT [facility]. FOLLOWED WITH DR HOLT. SHORT TERM MEMORY DIFFICULTIES, reason for plavix Stroke-like symptoms 09/2018 Transient ischemic attack (TIA) H/O. LAST EPISODE WAS OCTOBER 2017 Surgical History Fusion of spine LUMBAR H/O: hysterectomy History of ankle surgery History of arthroscopy BILATERAL KNEE ARTHROSCOPY History of back surgery (7 TOTAL) History of carpal tunnel release BILATERAL History of cataract surgery BILATERAL History of colonoscopy History of discectomy LUMBAR x4 History of esophagogastroduodenoscopy (EGD) History of open reduction and internal fixation (ORIF) procedure right ankle fx---hardware in place History of right hip replacement Hx of lumpectomy RIGHT Status post ORIF of fracture of ankle Family History Brother Stroke Mother , age 80 of heart issues. Coronary heart disease [place] Father , age 36 in a motor vehicle accident No problems noted. Other No family history of adverse response to anesthesia Social History Smoking Status: Never smoker Second Hand Exposure: No; Hx Alcohol Use: No Hx Substance Use: Yes Last Used Substance Other:: [place] last night midnight Preferred Language: Latvian Communication Ability: Effective Visual Impairment: No Limitations Administrative Assistant Coordinator Required: No Beliefs That Will Affect Care: None marital status: Current Living Situation: Spouse current occupational status: previously employed Other Information That Helps Us Care for You: No Feels Safe at Home: Yes Assistive Devices: Walker Allergies Allergies Allergy/AdvReac Type Severity Reaction Status Date / Time No Known Drug Allergies Allergy Unknown . Verified 07/20/21 11:55 Adhesive Tape Allergy Unknown Unknown Uncoded 07/20/21 11:55 Home Meds Home Medications Medication Instructions Recorded Confirmed cyanocobalamin (vitamin B-12) 1,000 mcg PO QAM 12/14/18 08/06/21 1,000 mcg tablet (Vitamin B-12) atorvastatin 80 mg tablet 80 mg PO QAM 03/06/19 08/06/21 pantoprazole 40 mg tablet,delayed 40 mg PO QAM 03/06/19 08/06/21 release polyethylene glycol 3350 17 17 g PO HS 03/06/19 08/06/21 gram/dose oral powder (Miralax) duloxetine 30 mg capsule,delayed 30 mg PO BID 07/31/20 08/06/21 release hydrocodone 5 mg-acetaminophen 325 1 tab PO Q6 07/31/20 08/06/21 mg tablet ibandronate 150 mg tablet 150 mg PO MONTHLY 07/31/20 08/06/21 potassium chloride 20 mEq 20 meq PO QAM 07/31/20 08/06/21 tablet,extended release(part/cryst) zolpidem 5 mg tablet 5 mg PO HS PRN 07/31/20 08/06/21 calcium carbonate 600 mg-vitamin 1 tab PO QAM 08/06/21 08/06/21 D3 20 mcg (800 unit) tablet (Caltrate with Vitamin D3) diphenhydramine 25 2 tab PO HS 08/06/21 08/06/21 mg-acetaminophen 500 mg tablet (Tylenol PM Extra Strength) Previous Rx's Medication Instructions Recorded clopidogrel 75 mg tablet 75 mg PO QAM #30 tab 09/18/18 docusate sodium 100 mg capsule 100 mg PO BID #60 cap 11/13/18 lisinopril 10 mg tablet 10 mg PO HS #30 tab 07/31/20 Results & Data (ED) Vital Signs Vital Signs - 24 hr 08/06/21 11:45 08/06/21 11:46 08/06/21 12:00 Pulse Rate 97 H 94 H 91 H Pulse Rate from SpO2 Sensor 92 H 95 H 92 H Respiratory Rate 22 13 17 Blood Pressure 142/75 H 142/75 H 146/65 H Blood Pressure Mean 97 97 92 Pulse Oximetry 96 96 94 Oxygen Delivery Method Room Air Room Air Room Air 08/06/21 12:15 08/06/21 12:30 08/06/21 12:36 Pulse Rate 92 H 89 Pulse Rate from SpO2 Sensor 88 Respiratory Rate 15 17 Blood Pressure 147/77 H 146/72 H Blood Pressure Mean 100 96 Pulse Oximetry 95 96 95 Oxygen Delivery Method Room Air Room Air Room Air 08/06/21 12:45 08/06/21 13:00 08/06/21 13:15 Pulse Rate 89 87 93 H Pulse Rate from SpO2 Sensor 88 91 H Respiratory Rate 19 14 15 Blood Pressure 151/74 H 135/59 L 144/78 H Blood Pressure Mean 99 84 100 Pulse Oximetry 95 96 Oxygen Delivery Method 08/06/21 13:30 08/06/21 13:45 08/06/21 14:00 Pulse Rate 90 93 H 85 Pulse Rate from SpO2 Sensor 90 95 H 85 Respiratory Rate 14 15 16 Blood Pressure 141/99 H 139/69 131/56 L Blood Pressure Mean 113 92 81 Pulse Oximetry 92 97 95 Oxygen Delivery Method 08/06/21 14:15 Pulse Rate 82 Pulse Rate from SpO2 Sensor 82 Respiratory Rate 18 Blood Pressure 132/64 Blood Pressure Mean 86 Pulse Oximetry 93 Oxygen Delivery Method Home Medications Current Medication List: was personally reviewed by me Laboratory Data Attestation: I reviewed the patient's lab results. Result diagrams: 08/07/21 06:03 08/07/21 06:03 Lab Results 08/06/21 08/06/21 08/06/21 Range/Units 11:15 11:15 11:15 WBC 26.30 H (4.8-10.8) K/uL RBC 4.39 (4.2-5.4) M/uL Hgb 12.9 (12.0-16.0) g/dL Hct 40.6 (37-47) % MCV 92.5 (80-100) fL MCH 29.4 (25-34) pg MCHC 31.8 L (32-36) g/dL RDW Std Deviation 46.8 H (36.4-46.3) fL RDW Coeff of Edouard 13.8 (11.5-14.5) % Plt Count 281 (130-400) K/uL MPV 9.8 (7.4-10.4) fL Immature Gran % (Auto) 0.4 % Neut % (Auto) 83.0 % Lymph % (Auto) 6.6 % [facility] % (Auto) 9.7 % Eos % (Auto) 0.2 % Baso % (Auto) 0.1 % Neut # (Auto) 21.85 H (1.4-6.5) K/uL Lymph # (Auto) 1.73 (1.2-3.4) K/uL [facility] # (Auto) 2.54 H (0.11-0.59) K/uL Eos # (Auto) 0.04 (0-0.5) K/uL Baso # (Auto) 0.03 (0-0.2) K/uL Immature Gran # (Auto) 0.11 H (0.00-0.02) K/uL ESR 29 (0-30) mm/hr PT 10.1 (9.0-12.0) Seconds INR 1.0 (0.9-1.1) APTT 24.3 (21.0-31.0) Seconds PTT Ratio 0.9 VBG pH (7.36-7.41) VBG pCO2 (38-50) mmHg VBG pO2 mmHg VBG HCO3 mmol/L VBG O2 Saturation % VBG Base Excess mEq/L Barometric Pressure mm/Hg Sodium (136-145) mmol/L Potassium (3.5-5.1) mmol/L Chloride (98-107) mmol/L Carbon Dioxide (21-32) mmol/L Anion Gap (3-11) BUN (7-18) mg/dl Creatinine (0.6-1.2) mg/dl Est Cr Clr Drug Dosing ml/min Est GFR ( Amer) ml/min Est GFR (Non-Af Amer) ml/min BUN/Creatinine Ratio (10-20) Glucose (70-99) mg/dl Lactate (0.4-2.0) mmol/L Calcium (8.5-10.1) mg/dl Magnesium (1.8-2.4) mg/dl Total Bilirubin (0.2-1) mg/dl AST (15-37) U/L ALT (12-78) Alkaline Phosphatase (45-117) U/L Troponin I (0-0.045) ng/ml C-Reactive Protein (0-0.29) mg/dl Total Protein (6.4-8.2) gm/dl Albumin (3.4-5.0) gm/dl Globulin (2.5-4.0) gm/dl Albumin/Globulin Ratio (0.9-2) Procalcitonin (0-0.5) ng/ml 08/06/21 08/06/21 08/06/21 Range/Units 11:15 11:15 11:15 WBC (4.8-10.8) K/uL RBC (4.2-5.4) M/uL Hgb (12.0-16.0) g/dL Hct (37-47) % MCV (80-100) fL MCH (25-34) pg MCHC (32-36) g/dL RDW Std Deviation (36.4-46.3) fL RDW Coeff of Edouard (11.5-14.5) % Plt Count (130-400) K/uL MPV (7.4-10.4) fL Immature Gran % (Auto) % Neut % (Auto) % Lymph % (Auto) % [facility] % (Auto) % Eos % (Auto) % Baso % (Auto) % Neut # (Auto) (1.4-6.5) K/uL Lymph # (Auto) (1.2-3.4) K/uL [facility] # (Auto) (0.11-0.59) K/uL Eos # (Auto) (0-0.5) K/uL Baso # (Auto) (0-0.2) K/uL Immature Gran # (Auto) (0.00-0.02) K/uL ESR (0-30) mm/hr PT (9.0-12.0) Seconds INR (0.9-1.1) APTT (21.0-31.0) Seconds PTT Ratio VBG pH (7.36-7.41) VBG pCO2 (38-50) mmHg VBG pO2 mmHg VBG HCO3 mmol/L VBG O2 Saturation % VBG Base Excess mEq/L Barometric Pressure mm/Hg Sodium 139 (136-145) mmol/L Potassium 3.5 (3.5-5.1) mmol/L Chloride 107 (98-107) mmol/L Carbon Dioxide 26 (21-32) mmol/L Anion Gap 6.0 (3-11) BUN 15 (7-18) mg/dl Creatinine 1.07 (0.6-1.2) mg/dl Est Cr Clr Drug Dosing 45.8 ml/min Est GFR ( Amer) 58.8 ml/min Est GFR (Non-Af Amer) 50.7 ml/min BUN/Creatinine Ratio 14.2 (10-20) Glucose 126 H (70-99) mg/dl Lactate 3.6 H* (0.4-2.0) mmol/L Calcium 8.6 (8.5-10.1) mg/dl Magnesium 2.0 (1.8-2.4) mg/dl Total Bilirubin 0.7 (0.2-1) mg/dl AST 37 (15-37) U/L ALT 45 (12-78) Alkaline Phosphatase 75 (45-117) U/L Troponin I < 0.015 (0-0.045) ng/ml C-Reactive Protein 3.11 H (0-0.29) mg/dl Total Protein 7.5 (6.4-8.2) gm/dl Albumin 3.8 (3.4-5.0) gm/dl Globulin 3.7 (2.5-4.0) gm/dl Albumin/Globulin Ratio 1.0 (0.9-2) Procalcitonin 6.84 H (0-0.5) ng/ml 08/06/21 08/06/21 Range/Units 11:23 13:12 WBC (4.8-10.8) K/uL RBC (4.2-5.4) M/uL Hgb (12.0-16.0) g/dL Hct (37-47) % MCV (80-100) fL MCH (25-34) pg MCHC (32-36) g/dL RDW Std Deviation (36.4-46.3) fL RDW Coeff of Edouard (11.5-14.5) % Plt Count (130-400) K/uL MPV (7.4-10.4) fL Immature Gran % (Auto) % Neut % (Auto) % Lymph % (Auto) % [facility] % (Auto) % Eos % (Auto) % Baso % (Auto) % Neut # (Auto) (1.4-6.5) K/uL Lymph # (Auto) (1.2-3.4) K/uL [facility] # (Auto) (0.11-0.59) K/uL Eos # (Auto) (0-0.5) K/uL Baso # (Auto) (0-0.2) K/uL Immature Gran # (Auto) (0.00-0.02) K/uL ESR (0-30) mm/hr PT (9.0-12.0) Seconds INR (0.9-1.1) APTT (21.0-31.0) Seconds PTT Ratio VBG pH 7.33 L (7.36-7.41) VBG pCO2 48 (38-50) mmHg VBG pO2 22 mmHg VBG HCO3 25 mmol/L VBG O2 Saturation < 60.0 % VBG Base Excess -1.2 mEq/L Barometric Pressure 724.4 mm/Hg Sodium (136-145) mmol/L Potassium (3.5-5.1) mmol/L Chloride (98-107) mmol/L Carbon Dioxide (21-32) mmol/L Anion Gap (3-11) BUN (7-18) mg/dl Creatinine (0.6-1.2) mg/dl Est Cr Clr Drug Dosing ml/min Est GFR ( Amer) ml/min Est GFR (Non-Af Amer) ml/min BUN/Creatinine Ratio (10-20) Glucose (70-99) mg/dl Lactate 2.7 H* (0.4-2.0) mmol/L Calcium (8.5-10.1) mg/dl Magnesium (1.8-2.4) mg/dl Total Bilirubin (0.2-1) mg/dl AST (15-37) U/L ALT (12-78) Alkaline Phosphatase (45-117) U/L Troponin I (0-0.045) ng/ml C-Reactive Protein (0-0.29) mg/dl Total Protein (6.4-8.2) gm/dl Albumin (3.4-5.0) gm/dl Globulin (2.5-4.0) gm/dl Albumin/Globulin Ratio (0.9-2) Procalcitonin (0-0.5) ng/ml Administered Medications Acetaminophen (Acetaminophen 325 Mg Tab) 650 mg PO Q4H PRN PRN Reason: pain/fever Stop: 09/05/21 14:15 Last Admin: 08/07/21 10:50 Dose: 650 mg Documented by: [id number] Admin: 08/06/21 23:08 Dose: 650 mg Documented by: [id number] Atorvastatin Calcium (Atorvastatin 40 Mg Tab) 80 mg PO [facility] Stop: 09/06/21 08:59 Last Admin: 08/07/21 08:19 Dose: 80 mg Documented by: [id number] Clopidogrel Bisulfate (Clopidogrel Bisulfate 75 Mg Tab) 75 mg PO [facility] Stop: 09/06/21 08:59 Last Admin: 08/07/21 08:19 Dose: 75 mg Documented by: [id number] Cyanocobalamin (Cyanocobalamin 500 Mcg Tablet (Vitamin B-12)) 1,000 mcg PO [facility] Stop: 09/06/21 08:59 Last Admin: 08/07/21 08:19 Dose: 1,000 mcg Documented by: [id number] Docusate Sodium (Docusate Sodium 100 Mg Cap) 100 mg PO BID [facility] Stop: 09/05/21 20:59 Last Admin: 08/07/21 08:19 Dose: 100 mg Documented by: [id number] Admin: 08/06/21 20:34 Dose: 100 mg Documented by: [id number] Duloxetine HCl (Duloxetine Hcl 30 Mg Cap) 30 mg PO BID [facility] Stop: 09/05/21 20:59 Last Admin: 08/07/21 08:19 Dose: 30 mg Documented by: [id number] Admin: 08/06/21 20:34 Dose: 30 mg Documented by: [id number] Enoxaparin Sodium (Enoxaparin Inj 40 Mg/0.4 Ml Syr) 40 mg SQ Q24H [facility] Stop: 09/05/21 17:59 Last Admin: 08/06/21 20:20 Dose: Not Given Documented by: [id number] Eszopiclone (Eszopiclone 1 Mg Tab) 1 mg PO HSZ PRN PRN Reason: Insomnia Stop: 09/05/21 21:38 Last Admin: 08/06/21 21:59 Dose: 1 mg Documented by: [id number] Piperacillin Sod/Tazobactam (Sod 3.375 gm/ Dextrose) 115 mls @ 28.75 mls/hr IV Q8H [facility]; Protocol Stop: 08/08/21 18:59 Last Infusion: 08/07/21 08:27 Dose: 0 mls/hr Documented by: [id number] Admin: 08/07/21 04:27 Dose: 28.8 mls/hr Documented by: [id number] Infusion: 08/07/21 00:11 Dose: 0 mls/hr Documented by: [id number] Admin: 08/06/21 20:19 Dose: 28.8 mls/hr Documented by: [id number] Lisinopril (Lisinopril 10 Mg Tab) 10 mg PO [facility] Stop: 09/05/21 20:59 Last Admin: 08/06/21 20:35 Dose: 10 mg Documented by: [id number] Multivitamins/Minerals (Calcium 600mg + Vit D 400 Iu Tab) 1 tab PO [facility] Stop: 09/06/21 08:59 Last Admin: 08/07/21 08:19 Dose: 1 tab Documented by: [id number] Pantoprazole Sodium (Pantoprazole 40 Mg Tab) 40 mg PO [facility] Stop: 09/06/21 08:59 Last Admin: 08/07/21 08:19 Dose: 40 mg Documented by: [id number] Discontinued Medications Acetaminophen (Acetaminophen 500 Mg Tab) 1,000 mg PO NOW [facility] Stop: 08/06/21 13:29 Last Admin: 08/06/21 13:37 Dose: 1,000 mg Documented by: [id number] Sodium Chloride (Nss 1000ml) 1,000 mls @ 999 mls/hr IV .[id number] ONE Stop: 08/06/21 12:35 Last Infusion: 08/06/21 12:17 Dose: 0 mls/hr Documented by: [id number] Admin: 08/06/21 11:40 Dose: 999 mls/hr Documented by: [id number] Piperacillin Sod/Tazobactam Sod (Zosyn) 4.5 gm in 120 mls @ 240 mls/hr IV NOW ONE Stop: 08/06/21 12:05 Last Infusion: 08/06/21 12:17 Dose: 0 mls/hr Documented by: [id number] Admin: 08/06/21 11:46 Dose: 240 mls/hr Documented by: [id number] Lactated Ringer's (Lr) 1,000 mls @ 80 mls/hr IV .[id number] ONE Stop: 08/07/21 03:18 Last Infusion: 08/07/21 04:17 Dose: 0 mls/hr Documented by: [id number] Admin: 08/06/21 18:32 Dose: 80 mls/hr Documented by: [id number] Imaging Data Radiologist's Impression: Chest X-Ray 08/06/21 10:40 SINGLE VIEW CHEST CLINICAL HISTORY: Sepsis. FINDINGS: An AP, portable, upright chest radiograph is compared to study dated 04/07/2019. The examination is degraded by portable technique and patient rotation. The heart is top normal for projection noting atherosclerotic calcification of the thoracic aorta. There is mild bibasilar scarring/at electasis. The lungs and pleural spaces are otherwise clear. No pneumothorax is seen. The skeletal structures are osteopenic. The bony thorax is grossly intact. Surgical clips project over the right axilla and the right breast. IMPRESSION: No acute cardiopulmonary abnormality. ACT 112: Negative or not required by law. Electronically signed by: Miguel Hernandez M.D. 08/06/2021 11:[address] 08/06/21 10:40 CT SCAN OF THE BRAIN WITHOUT IV CONTRAST CLINICAL HISTORY: Change in mental status. COMPARISON STUDY: CT of the brain dated 07/31/2020. TECHNIQUE: Unenhanced axial CT scan of the brain is performed from the vertex to the skull base. A dose lowering technique was utilized adhering to the principles of ALARA. CT DOSE: 614.27 mGy.cm FINDINGS: Brain parenchyma: There are age-related involutional changes noting advanced confluent subcortical and periventricular microangiopathic change. Foci of bilateral cerebellar encephalomalacia are consistent with remote infarcts. A chronic lacunar infarct is noted in the left basal ganglia. There is no hemorrhage, mass effect, or evidence of acute territorial ischemia by CT criteria. Matthews-white matter differentiation is preserved. No extra-axial fluid collection is seen. Ventricles, sulci, cisterns: Prominent secondary to involutional change. Intracranial vasculature: There is atherosclerotic calcification of the cavernous carotid and vertebral arteries. Calvarium: Unremarkable. Sinuses and mastoids: The visualized paranasal sinuses are clear. The mastoid air cells are well pneumatized. Orbits: The bony orbits are grossly intact. IMPRESSION: Senescent changes as above with no hemorrhage, mass effect, or evidence of acute territorial ischemia by CT criteria. ACT 112: Negative or not required by law. Electronically signed by: Miguel Hernandez M.D. 08/06/2021 10:58 AM Discharge Plan Visit Data Chief Complaint: Altered Mental Status ED Provider: Spenser Driscoll Discharge Problem: Acute alteration in mental status, Stroke-like symptoms, Acidosis, lactic Patient Disposition: Admitted As Inpatient Discharge Instructions Interventions: ED Discharge Assessment Last Done: 08/06/21 16:26
--- NOTE | 2021-08-06 11:17 | XRay Report ---
SINGLE VIEW CHEST CLINICAL HISTORY: Sepsis. FINDINGS: An AP, portable, upright chest radiograph is compared to study dated 04/07/2019. The examinat ion is degraded by portable technique and patient rotation. The heart is top normal for projection no ting atherosclerotic calcification of the thoracic aorta. There is mild bibasilar scarring/atelectasi s. The lungs and pleural spaces are otherwise clear. No pneumothorax is seen. The skeletal structures are osteopenic. The bony thorax is grossly intact. Surgical clips project over the right axilla and the right breast. IMPRESSION: No acute cardiopulmonary abnormality. ACT 112: Negative or not required by law. Electronically signed by: Miguel Hernandez M.D. 08/06/2021 11:16 AM
[2021-08-06 11:23] LABS: Hematocrit (blood only) 40.6 % (37-47); Hemoglobin 12.9 g/dL (12.0-16.0); Mean Corpuscular Hemoglobin 29.4 pg (25-34); Mean Corpuscular Hgb Conc 31.8 g/dL (32-36); Mean Corpuscular Volume 92.5 fL (80-100); Mean Platelet Volume 9.8 fL (7.4-10.4); Platelet Count 281 K/uL (130-400); RDW Coefficient of Variation 13.8 % (11.5-14.5); RDW Standard Deviation 46.8 fL (36.4-46.3); Red Blood Count 4.39 M/uL (4.2-5.4)
[2021-08-06] MEDS ORDERED: SODIUM CHLORIDE 0.9% 1000ML 1,000 ML IV ONE (11:35)
[2021-08-06] MEDS ORDERED: PIPERACILLIN/TAZOBACTAM 4.5 GM/120 ML BAG IV ONE (11:36)
[2021-08-06] MEDS ORDERED: PIPERACILL/TAZOBAC CONSULT ACTIVE PRN ×2 (11:36→18:20)
[2021-08-06 11:39] LABS: Basophils # (auto) 0.03 K/uL (0-0.2); Basophils % (auto) 0.1 %; Eosinophils # (auto) 0.04 K/uL (0-0.5); Eosinophils % (auto) 0.2 %; Immature Granulocytes # (auto) 0.11 K/uL (0.00-0.02); Immature Granulocytes % (auto) 0.4 %; Lymphocytes # (auto) 1.73 K/uL (1.2-3.4); Lymphocytes % (auto) 6.6 %; Monocytes # (auto) 2.54 K/uL (0.11-0.59); Monocytes % (auto) 9.7 %; Neutrophils # (auto) 21.85 K/uL (1.4-6.5)
[2021-08-06 11:43] LABS: Partial Thromboplastin Ratio 0.9; Partial Thromboplastin Time 24.3 Seconds (21.0-31.0); Prothrombin Time 10.1 Seconds (9.0-12.0)
[2021-08-06 11:44] LABS: Alanine Aminotransferase 45 (12-78); Albumin Level 3.8 gm/dl (3.4-5.0); Aspartate Aminotransferase 37 U/L (15-37); BUN Creatinine Ratio 14.2 (10-20); Blood Urea Nitrogen 15 mg/dl (7-18); Calcium 8.6 mg/dl (8.5-10.1); Carbon Dioxide 26 mmol/L (21-32); Chloride 107 mmol/L (98-107); Creatinine Clr Calc Pharmacy 45.8 ml/min; Est GFR (African American) 58.8 ml/min; Est GFR (Non-African American) 50.7 ml/min; Glucose 126 mg/dl (70-99); Potassium 3.5 mmol/L (3.5-5.1); Sodium 139 mmol/L (136-145)
[2021-08-06 11:49] LABS: Alkaline Phosphatase 75 U/L (45-117); Bilirubin,Total 0.7 mg/dl (0.2-1); C Reactive Protein 3.11 mg/dl (0-0.29); Globulin 3.7 gm/dl (2.5-4.0); Total Protein 7.5 gm/dl (6.4-8.2); Troponin I < 0.015 ng/ml (0-0.045)
[2021-08-06 11:52] LABS: Base Excess VBG -1.2 mEq/L; HCO3 VBG 25 mmol/L; PCO2 VBG 48 mmHg (38-50); PO2 VBG 22 mmHg; pH VBG 7.33 (7.36-7.41)
[2021-08-06 11:57] LABS: Appearance Urine Clear (Clear); Bacteria Urine Automated Negative (Negative); Bilirubin Urine Negative (Negative); Blood Urine Negative (Negative); Color Urine Dark Yellow; Epithelial Cell Urine Auto >30 /lpf (0-5); Glucose Urine UA Negative (Negative); Ketones Urine Trace (Negative); Leukocyte Esterase Urine Negative (Negative); Nitrite Urine Negative (Negative); Protein Urine 2+ (Negative); Specific Gravity Urine 1.022 (1.000-1.030); Urobilinogen Urine Negative (Negative)
[2021-08-06 11:59] LABS: Oxygen Saturation VBG < 60.0 %
[2021-08-06 12:33] LABS: Influenza A virus by PCR Negative (Neg); Influenza B virus by PCR Negative (Neg); RSV by PCR Negative (Neg); SARS CoV2 RNA(COVID-19) InHosp NEGATIVE (Negative)
[2021-08-06] MEDS ORDERED: ACETAMINOPHEN 500 MG TAB PO STA (13:28)
[2021-08-06] MEDS ORDERED: ONDANSETRON INJ 2 MG/ML 2 ML VIAL IV PRN (14:16)
[2021-08-06] MEDS ORDERED: POLYETHYLENE (MIRALAX) 17 GM PACK PO PRN (14:16)
--- NOTE | 2021-08-06 14:46 | History & Physical Report ---
Date of Service August 06, 2021 Assessment & Plan (1) Leukocytosis: Plan: Patient presents for syncope with diarrhea episode this morning- no blood, no mucous, no foul odor per - WBC at 26 with elevated NLR, and elevated PCT, CRP, Lactate - No evidence of organ dysfunction or other SIRS/Sepsis criteria - Normal CXR, Normal UA, negative head CT - No abdominal discomfort and biliary labs normal - UA negative- Urine culture ordered - Blood cultures pending - recent knee steroid injection and vomiting prior to admission might explain WBC as demargination - follow - hold empiric antibiotics given alternate explanations for WBC, no clear source, not wanting to cloud clinical picture --> resume abx if anything becomes more evident The rest of her cell line is normal she received 1liter of sodium chloride and will continue LR x 1 liter overnight as she may have small component of hemoconcentration She has no back pain or other pain out of proportion and no other focal deficits, as well as no murmurs on exam. (2) History of right hip replacement: Plan: Recent fall and fracture in 2020- follows with ortho - no pain with movement or palpation, no lymphadenopathy in groin - Patient states pain is not acute or any change - Hip/pelvis Xray from 07/20/21-no acute process (3) H/O: stroke: Plan: As per HPI CVA-2018 with likely TIA in 2019 - no custodial focal dficits, but remains with vascular dementia - no focal weakness on exam - Continue Plavix - Continue statin - Continue PAULA (4) GERD (gastroesophageal reflux disease): Plan: Continue with Pantoprazole (5) Hypokalemia: Plan: Chronic - on potassium crystals at home - replace daily as needed (6) Vascular dementia: Plan: As above (7) High cholesterol: Plan: As above continue statin (8) Hypertension: Plan: As above continue PAULA History of Present Illness Primary Care Provider: LOYD Galvan 76 YOF with past medical history of: CVA/TIA- right periventricular stroke in 2018, mild dementia, fall onto previously partially replaced right hip(2018) fall may 2021- with fracture of greater trochanter- conservative approach, GERD, anxiety, HLD, HTN. Patient comes to the EMD today via EMS secondary to syncopal episode on the BSC this morning. reports that he got up assisted her on the commode, she had loose BM and then went unresponsive she awakened shortly after and was brought to the ER. There were some original concerns by EMS for right sided facial droop and gaze deviation but no appearance of such on arrival and believes she is at her baseline. She has endorsed headache that is bilateral behind both her eyes and is feels more like pressure. This was ongoing over the past 2 days, and was relieved with Tylenol in the ER. She has no focal deficits or residual effects on my exam. She had CXR done, CT scan of the head- negative for acute process and clear sinuses. She had routine lab work done that revealed a WBC count of 26, with elevated NLR, PCT of 6.8 and CRP of 3.11. She had blood cultures done, UA done (negative), Lactate elevated to 3.5, she was given 1 dose of empiric Zosyn. Hospitalist was consulted for admission. On evaluation patient is alert and oriented without any focal deficits, skin rash, she is warm on palpation. No abdominal or pelvic pain noted, no pain at right hip and no identifiable areas of erythema or infection. No murmurs and no dental pain and no recent visits to the dentist either. Will obtain CT with IV contrast of her abd/pelvis with onset of diarrhea this morning. Will continue her empiric Zosyn and follow her biomarkers. No obvious infection to reflect her laboratory abnormalities at this time. Continue to search for cause. Her COVID test on admission is negative. Allergies Allergy/AdvReac Type Severity Reaction Status Date / Time No Known Drug Allergies Allergy Unknown . Verified 07/20/21 11:55 Adhesive Tape Allergy Unknown Unknown Uncoded 07/20/21 11:55 Home Medications Medication Instructions Recorded Confirmed Type clopidogrel 75 mg tablet 75 mg PO QAM #30 tab 09/18/18 08/06/21 Rx docusate sodium 100 mg capsule 100 mg PO BID #60 cap 11/13/18 08/06/21 Rx cyanocobalamin (vitamin B-12) 1,000 mcg PO QAM 12/14/18 08/06/21 History 1,000 mcg tablet (Vitamin B-12) atorvastatin 80 mg tablet 80 mg PO QAM 03/06/19 08/06/21 History pantoprazole 40 mg tablet,delayed 40 mg PO QAM 03/06/19 08/06/21 History release polyethylene glycol 3350 17 17 g PO HS 03/06/19 08/06/21 History gram/dose oral powder (Miralax) duloxetine 30 mg capsule,delayed 30 mg PO BID 07/31/20 08/06/21 History release hydrocodone 5 mg-acetaminophen 325 1 tab PO Q6 07/31/20 08/06/21 History mg tablet ibandronate 150 mg tablet 150 mg PO MONTHLY 07/31/20 08/06/21 History lisinopril 10 mg tablet 10 mg PO HS #30 tab 07/31/20 08/06/21 Rx potassium chloride 20 mEq 20 meq PO QAM 07/31/20 08/06/21 History tablet,extended release(part/cryst) zolpidem 5 mg tablet 5 mg PO HS PRN 07/31/20 08/06/21 History calcium carbonate 600 mg-vitamin 1 tab PO QAM 08/06/21 08/06/21 History D3 20 mcg (800 unit) tablet (Caltrate with Vitamin D3) diphenhydramine 25 2 tab PO HS 08/06/21 08/06/21 History mg-acetaminophen 500 mg tablet (Tylenol PM Extra Strength) Past Med/Surg History Medical History Acid reflux Anxiety Aphasia H/O FROM STROKE 09/2018. Breast cancer 2000. RIGHT LUMPECTOMY. Chronic back pain Closed fracture of right distal tibia Constipation reason for scheduled colonoscopy Degenerative disc disease Depression Deviated septum Fracture of greater trochanter of right femur High cholesterol Hypertension On anticoagulant therapy Osteoarthritis Peptic ulcer disease H/O BLEEDING ULCERS Right leg pain Stroke SEPTEMBER 17, 2018. TREATED AT [facility]. FOLLOWED WITH DR HOLT. SHORT TERM MEMORY DIFFICULTIES, reason for plavix Stroke-like symptoms 09/2018 Transient ischemic attack (TIA) H/O. LAST EPISODE WAS OCTOBER 2017 Surgical History Fusion of spine LUMBAR H/O: hysterectomy History of ankle surgery History of arthroscopy BILATERAL KNEE ARTHROSCOPY History of back surgery (7 TOTAL) History of carpal tunnel release BILATERAL History of cataract surgery BILATERAL History of colonoscopy History of discectomy LUMBAR x4 History of esophagogastroduodenoscopy (EGD) History of open reduction and internal fixation (ORIF) procedure right ankle fx---hardware in place History of right hip replacement Hx of lumpectomy RIGHT Status post ORIF of fracture of ankle Family History Brother Stroke Mother , age 80 of heart issues. Coronary heart disease [place] Father , age 36 in a motor vehicle accident No problems noted. 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 Beliefs That Will Affect Care: None marital status: Current Living Situation: Spouse current occupational status: previously employed Feels Safe at Home: Yes Assistive Devices: Denture - Upper and Glasses Review of Systems Review of Systems: REVIEW OF SYSTEMS: Constitutional: (+) chillos, no fever, Eyes: No diplopia, no worsening or blurred vision ENT: normal hearing, no trouble swallowing Respiratory: No cough, sputum, dyspnea at rest or on exertion Cardiovascular: No chest pain, tightness or palpitations Abdomen: No pain, nausea, vomiting, diarrhea or constipation Musculoskeletal: (+) right hip pain- no accute changes, joint pain, NO calf pain, swelling Neurologic: No weakness, numbness/tingling, or balance problems Psychiatric: No anxiety or depression Skin: No rash or itch Physical Exam Physical Exam: PHYSICAL EXAM: General: awake, alert, she is confrontational on initial visit, but relaxed and participated with rest of interview and exam Head: Normocephalic, atraumatic ENT: PERRL, EOMI, no pharyngeal exudate, mucous membranes moist, Tympanic membranes normal cone of light and munoz in color. No lymphadenopathy and no sinus pain with palpation Neuro: AAO x 3, speech clear and appropriate, strength intact bilaterally 5/5, sensation intact and equal all extremities and dermatomes, no pronator drift, no meningismus sings Chest: equal rise and fall of the chest, no accessory muscle use, no heaves or thrills, Clear to auscultation, on room air, Cardiac: Regular rate and rhythm, telemetry reviewed-NSR, skin warm dry, cap refill <3 seconds, peripheral pulses +2 no JVD, no murmur, no edema GI: NABS x 4 quadrants, soft, nontender to palpation, no rebound, guarding or tenderness : Spontaneously voiding, no pain, no CVA tenderness, no suprapubic pain or discomfort Extremities: Normal inspection, no peripheral edema or erythema, calfs nontender to palpation Psych: Normal mood and affect Skin: no rash or erythema, no open areas Results & Data Results & Data ([facility]) Vital Signs (Past 12 Hours) Vital Signs Temp Pulse Resp BP Pulse Ox 08/06/21 14:00 85 16 131/56 L 95 08/06/21 13:45 93 H 15 139/69 97 08/06/21 13:30 90 14 141/99 H 92 08/06/21 13:15 93 H 15 144/78 H 96 08/06/21 13:00 87 14 135/59 L 08/06/21 12:45 89 19 151/74 H 95 08/06/21 12:36 95 08/06/21 12:30 89 17 146/72 H 96 08/06/21 12:15 92 H 15 147/77 H 95 08/06/21 12:00 91 H 17 146/65 H 94 08/06/21 11:46 94 H 13 142/75 H 96 08/06/21 11:45 97 H 22 142/75 H 96 08/06/21 11:30 92 H 20 158/64 H 95 08/06/21 11:25 93 H 25 H 140/81 95 08/06/21 11:15 95 H 14 96 08/06/21 11:09 37.0 C 87 20 110/59 L 93 08/06/21 11:00 106 H 15 95 08/06/21 10:40 93 H 20 96 Laboratory Results Abnormal lab results 08/06/21 08/06/21 08/06/21 Range/Units 11:15 11:15 11:15 WBC 26.30 H (4.8-10.8) K/uL MCHC 31.8 L (32-36) g/dL RDW Std Deviation 46.8 H (36.4-46.3) fL Neut # (Auto) 21.85 H (1.4-6.5) K/uL Atkinson # (Auto) 2.54 H (0.11-0.59) K/uL Immature Gran # (Auto) 0.11 H (0.00-0.02) K/uL VBG pH (7.36-7.41) Glucose 126 H (70-99) mg/dl Lactate 3.6 H* (0.4-2.0) mmol/L C-Reactive Protein 3.11 H (0-0.29) mg/dl Procalcitonin (0-0.5) ng/ml Urine Protein (Negative) Urine Ketones (Negative) Urine RBC (Auto) (0-4) /hpf U Hyaline Cast (Auto) (0-5) /lpf U Epithel Cells (Auto) (0-5) /lpf 08/06/21 08/06/21 08/06/21 Range/Units 11:15 11:23 13:12 WBC (4.8-10.8) K/uL MCHC (32-36) g/dL RDW Std Deviation (36.4-46.3) fL Neut # (Auto) (1.4-6.5) K/uL Atkinson # (Auto) (0.11-0.59) K/uL Immature Gran # (Auto) (0.00-0.02) K/uL VBG pH 7.33 L (7.36-7.41) Glucose (70-99) mg/dl Lactate 2.7 H* (0.4-2.0) mmol/L C-Reactive Protein (0-0.29) mg/dl Procalcitonin 6.84 H (0-0.5) ng/ml Urine Protein (Negative) Urine Ketones (Negative) Urine RBC (Auto) (0-4) /hpf U Hyaline Cast (Auto) (0-5) /lpf U Epithel Cells (Auto) (0-5) /lpf 08/06/21 Range/Units Unknown WBC (4.8-10.8) K/uL MCHC (32-36) g/dL RDW Std Deviation (36.4-46.3) fL Neut # (Auto) (1.4-6.5) K/uL Atkinson # (Auto) (0.11-0.59) K/uL Immature Gran # (Auto) (0.00-0.02) K/uL VBG pH (7.36-7.41) Glucose (70-99) mg/dl Lactate (0.4-2.0) mmol/L C-Reactive Protein (0-0.29) mg/dl Procalcitonin (0-0.5) ng/ml Urine Protein 2+ H (Negative) Urine Ketones Trace H (Negative) Urine RBC (Auto) 5-10 H (0-4) /hpf U Hyaline Cast (Auto) 10-30 H (0-5) /lpf U Epithel Cells (Auto) >30 H (0-5) /lpf Diagnostic Findings Chest X-Ray 08/06/21 10:40 SINGLE VIEW CHEST CLINICAL HISTORY: Sepsis. FINDINGS: An AP, portable, upright chest radiograph is compared to study dated 04/07/2019. The examination is degraded by portable technique and patient rotation. The heart is top normal for projection noting atherosclerotic ca lcification of the thoracic aorta. There is mild bibasilar scarring/atelectasis. The lungs and pleural spaces are otherwise clear. No pneumothorax is seen. The skeletal structures are osteopenic. The bony thorax is grossly intact. Surgical clips project over the right axilla and the right breast. IMPRESSION: No acute cardiopulmonary abnormality. ACT 112: Negative or not required by law. Electronically signed by: Miguel Hernandez M.D. 08/06/2021 11:[address] 08/06/21 10:40 CT SCAN OF THE BRAIN WITHOUT IV CONTRAST CLINICAL HISTORY: Change in mental status. COMPARISON STUDY: CT of the brain dated 07/31/2020. TECHNIQUE: Unenhanced axial CT scan of the brain is performed from the vertex to the skull base. A dose lowering technique was utilized adhering to the principles of ALARA. CT DOSE: 614.27 mGy.cm FINDINGS: Brain parenchyma: There are age-related involutional changes noting advanced confluent subcortical and periventricular microangiopathic change. Foci of bilateral cerebellar encephalomalacia are consistent with remote infarcts. A chronic lacunar infarct is noted in the left basal ganglia. There is no hemorrhage, mass effect, or evidence of acute territorial ischemia by CT criteria. Matthews-white matter differentiation is preserved. No extra-axial fluid collection is seen. Ventricles, sulci, cisterns: Prominent secondary to involutional change. Intracranial vasculature: There is atherosclerotic calcification of the cavernous carotid and vertebral arteries. Calvarium: Unremarkable. Sinuses and mastoids: The visualized paranasal sinuses are clear. The mastoid air cells are well pneumatized. Orbits: The bony orbits are grossly intact. IMPRESSION: Senescent changes as above with no hemorrhage, mass effect, or evidence of acute territorial ischemia by CT criteria. ACT 112: Negative or not required by law. Electronically signed by: Miguel Hernandez M.D. 08/06/2021 10:58 AM Medications Administered Discontinued Medications Acetaminophen (Acetaminophen 500 Mg Tab) 1,000 mg PO NOW STA Stop: 08/06/21 13:29 Last Admin: 08/06/21 13:37 Dose: 1,000 mg Documented by: [id number] Sodium Chloride (Nss 1000ml) 1,000 mls @ 999 mls/hr IV .Q1H1M ONE Stop: 08/06/21 12:35 Last Infusion: 08/06/21 12:17 Dose: 0 mls/hr Documented by: [id number] Admin: 08/06/21 11:40 Dose: 999 mls/hr Documented by: [id number] Piperacillin Sod/Tazobactam Sod (Zosyn) 4.5 gm in 120 mls @ 240 mls/hr IV NOW ONE Stop: 08/06/21 12:05 Last Infusion: 08/06/21 12:17 Dose: 0 mls/hr Documented by: [id number] Admin: 08/06/21 11:46 Dose: 240 mls/hr Documented by: [id number] ECG Additional Comments: Sinus rhythm with occasional Premature ventricular complexes Nonspecific ST and T wave abnormality Abnormal ECG When compared with ECG of 31-JUL-2020 00:52, Premature ventricular complexes are now Present MT interval has decreased Nonspecific T wave abnormality no longer evident in Inferior leads Nonspecific T wave abnormality now evident in Lateral leads QT has shortened Code Status & VTE Plan Code Status CODE: DNR/DNI VTE: SCDs, Lovenox 40mg subq daily VTE Prophylaxis Plan VTE Prophylaxis will be ordered: Yes Supervising Physician Co-Signing Physician Notes I personally examined the patient and verified all friedman points of history and exam, discussed case, and agree with decision making with Jaxson HARP migraine yesterday. this AM got up to go to [facility] - takes bowel regimen - loose stools but notes seems in line with her normal just more volume than usual. She then got pale sweaty and shaky and lost consciousness. Then and what sounds to be a bit of semiconscious state she was dry heaving a good bit. He did not note any focal neuro deficits on repeated, directed questioning by me. She then was brought to the ER, work-up, does not entirely clear how long she was actually out, but is now basically back to her baselinerepeatedly asking if she can go home. No chest pain no shortness of breath no cough. No abdominal pain, no ongoing diarrhea/nausea/vomiting. No other focal symptoms, she actually feels quite well. She does have a little bit of a right facial droopbut she and her note this chronic from old strokes. Vitals noted, in general she is awake and alert pleasant no distress. HEENT normocephalic atraumatic mucous membranes moist. Cardio is regular somewhat distant no rubs murmurs or gallops lungs clear to auscultation bilaterally no rales rhonchi or wheeze with good effort no accessory muscle use no conversational dyspnea. Abdomen is soft nondistended nontender no masses organomegaly no guarding rebound or rigidity. Extremities show no cyanosis c lubbing or edema no calf tenderness. Neuro shows a slight right facial droop otherwise cranial nerves II through XII are grossly intact. Gross motor and sensory are equal bilateral upper and lower extremities. Skin without rashes, pallor, icterus. Syncopeseems vagal/orthostaticprobably combination of both. No rhythm issues noted. Monitor. Check echocardiogram for completeness. Doubt worrisome pathology is at play. will want to make sure she can be upright without repeated episodes - ambulate, orthostatics Leukocytosismonitor overnight. No clear infection, hold off on empiric anti biotics for now. Serial exams, serial labs. While is a bit high for steroid effect or demargination from vomitingthe fact that both could be at play might explain this. Certainly if anything starts to evolve as a focused site of infection, then work-up further/resume empiric antibiotics. Dispositionif all of the above works out to be benign, hopefully home tomorrow. PG Care Time/CCT Total # of Minutes Spent Total Time Spent with Patient: Total time spent is greater than 50% in coordination of care (as documented) at patient's floor/unit and/or counseling patient: Coding Level of Care Code 56780 Initial Inpt Care Lvl 3 Diagnoses Leukocytosis D72.829 History of right hip replacement Z96.641 H/O: stroke Z86.73 GERD (gastroesophageal reflux disease) K21.9 Hypokalemia E87.6 Vascular dementia F01.50 High cholesterol E78.00 Hypertension I10 Hypertension type: essential hypertension (1) Hypertension Hypertension type: essential hypertension Qualified Code(s): I10 - Essential (primary) hypertension
[2021-08-06] MEDS ORDERED: LACTATED RINGER'S 1,000 ML IV ONE (14:49)
[2021-08-06] MEDS ORDERED: PIPERACILLIN/TAZOBACTAM 3.375 GM in DEXTROSE 5% 100 ML IV SCH (18:00)
[2021-08-06] MEDS: PIPERACILLIN/TAZOBACTAM 3.375 GM in DEXTROSE 5% 100 ML IV SCH (20:19)
[2021-08-06] MEDS: ENOXAPARIN INJ 40 MG/0.4 ML SYR SQ SCH (20:20)
[2021-08-06] MEDS: DOCUSATE SODIUM 100 MG CAP PO SCH (20:34)
[2021-08-06] MEDS: DULoxetine HCL 30 MG CAP PO SCH (20:34)
[2021-08-06] MEDS: lisinopril 10 MG TAB PO SCH (20:35)
[2021-08-06] MEDS: ESZOPICLONE 1 MG TAB PO PRN (21:59)
[2021-08-06] MEDS: ACETAMINOPHEN 325 MG TAB PO PRN (23:08)
[2021-08-07] MEDS: PIPERACILLIN/TAZOBACTAM 3.375 GM in DEXTROSE 5% 100 ML IV SCH ×3 (04:27→19:47)
[2021-08-07 06:41] LABS: Basophils # (auto) 0.01 K/uL (0-0.2); Basophils % (auto) 0.1 %; Eosinophils # (auto) 0.09 K/uL (0-0.5); Eosinophils % (auto) 0.7 %; Hematocrit (blood only) 34.6 % (37-47); Immature Granulocytes # (auto) 0.02 K/uL (0.00-0.02); Immature Granulocytes % (auto) 0.2 %; Lymphocytes # (auto) 2.21 K/uL (1.2-3.4); Lymphocytes % (auto) 17.8 %; Mean Corpuscular Hemoglobin 29.2 pg (25-34); Mean Corpuscular Hgb Conc 31.8 g/dL (32-36); Mean Corpuscular Volume 91.8 fL (80-100); Mean Platelet Volume 9.5 fL (7.4-10.4); Monocytes # (auto) 0.65 K/uL (0.11-0.59); Monocytes % (auto) 5.2 %; Neutrophils # (auto) 9.42 K/uL (1.4-6.5); Platelet Count 226 K/uL (130-400); RDW Coefficient of Variation 13.8 % (11.5-14.5); RDW Standard Deviation 46.4 fL (36.4-46.3); Red Blood Count 3.77 M/uL (4.2-5.4)
[2021-08-07 07:10] LABS: BUN Creatinine Ratio 15.5 (10-20); C Reactive Protein 7.84 mg/dl (0-0.29); Calcium 8.3 mg/dl (8.5-10.1); Creatinine Clr Calc Pharmacy 72.1 ml/min; Est GFR (African American) 99.2 ml/min; Est GFR (Non-African American) 85.6 ml/min
--- NOTE | 2021-08-07 07:47 | Electrocardiogram Report ---
Test Reason : Blood Pressure : / mmHG Vent. Rate : 093 BPM Atrial Rate : 093 BPM P-R Int : 176 ms QRS Dur : 072 ms QT Int : 350 ms P-R-T Axes : 064 -21 076 degrees QTc Int : 435 ms Poor data quality, interpretation may be adversely affected Sinus rhythm with occasional Premature ventricular complexes Nonspecific ST and T wave abnormality Abnormal ECG When compared with ECG of 31-JUL-2020 00:52, Premature ventricular complexes are now Present CO interval has decreased Nonspecific T wave abnormality now evident in Lateral leads Confirmed by Johnny Bradley ([id number]) on 08/07/2021 7:47:10 AM Referred By: REFERRED SELF Confirmed By:Johnny Bradley
[2021-08-07] MEDS: CALCIUM 600MG + VIT D 400 IU TAB PO SCH (08:19)
[2021-08-07] MEDS: CYANOCOBALAMIN 500 MCG TABLET (VITAMIN B-12) PO SCH (08:19)
[2021-08-07] MEDS: CLOPIDOGREL BISULFATE 75 MG TAB PO SCH (08:19)
[2021-08-07] MEDS: PANTOprazole 40 MG TAB PO SCH (08:19)
[2021-08-07] MEDS: DOCUSATE SODIUM 100 MG CAP PO SCH (08:19)
[2021-08-07] MEDS: DULoxetine HCL 30 MG CAP PO SCH ×2 (08:19→19:49)
[2021-08-07] MEDS: ATORVASTATIN 40 MG TAB PO SCH (08:19)
[2021-08-07] MEDS: ACETAMINOPHEN 325 MG TAB PO PRN ×2 (10:50→22:53)
[2021-08-07] MEDS ORDERED: POTASSIUM CHLORIDE CRTAB 20 MEQ TABCR PO STA (11:25)
--- NOTE | 2021-08-07 12:07 | XCELERA ---
[id number]
[2021-08-07 13:29] LABS: Cdiff Antigen Negative; Cdiff Toxin A+B Negative Cdiff Toxin (Negative)
--- NOTE | 2021-08-07 16:19 | Hospitalist Progress Note ---
Date of Service August 07, 2021 Assessment & Plan (1) C. difficile diarrhea: Plan: although she has had only 2 episodes of diarrhea in the last 24 hours both stools were loose and today's was mucous filled with odor. given the leukocytosis, elevated procal, etc - without another cause/etiology for such (blood cx's neg, urine cx neg, cxr neg for pneumonia, covid neg) - will Rx for c diff with vancomycin 125mg QID x 10 days. add lactinex. hold stool softeners. contact precautions. (2) Syncope: Plan: 2nd to developing illness (ie - #1 above) ? acute CVA? other? echo wnl. MRI brain ordered - r/o acute stroke. dysrhythmia? await MRI brain. follow blood cx's and repeat her procal/etc in am. (3) Frequent headaches: Plan: chronic, multiple headaches each week deserves f/u with [facility] neuro post-d/c for these prophylaxis likely would be helpful (4) H/O: stroke: Plan: noted cont plavix for secondary prevention (5) GERD (gastroesophageal reflux disease): Plan: cont PPI (6) Hypokalemia: Plan: replace BMP in am (7) Vascular dementia: Plan: 2nd to prior strokes (8) Chronic constipation: Plan: given #1 - hold colace, miralax, etc (9) Hypertension: Plan: cont home meds Plan: PT eval - ensure safe for home if w/u for #2 is not revealing - consider 30-day event monitor updated at bedside Admission and Anticipated Discharge Date Admission Date: August 06, 2021 Subjective during my bedside visit the pt's was at bedside multiple times the patient said "I'm going home today" pt's encouraged her to be reasonable and to stay overnight for additional tests patient had a loose, watery, mucous-filled stool earlier today sent to lab - c diff gene +; c diff toxin negative no recent antibiotic usage had loose stool at home during her syncopal episode patient had loss of consciousness followed by confusion for at least 45 minutes or longer patient had zero complaints during my visit (see ROS below) pt's denies any recent illness prior to the syncopal episode Review of Systems Review of Systems: gen - no fevers/chills/loss of appetite (ate well today) HEENT - no loss of taste or smell; no nasal congestion but mild sore throat CV - no chest pain pulm - no cough or dyspnea GI - no abd pain, no nausea or emesis; no shirley blood per staff - no dysuria musculo - no myalgias or arthralgias neuro - denies focal motor weakness, dysarthria or dysphagia skin - no rash Physical Exam Physical Exam: gen - NAD, irritable, mild confusion with poor insight eyes - PERRL, EOMI mouth - MMM, minimal posterior pharyngeal erythema neck - no JVD heart - RRR, s1 s2 lungs - CTA b/l abd - soft NT ND BS+ ext - no edema, pulses 2+ b/l neuro - no facial droop; strength 5/5 x 4 exts; minimal ataxia finger/nose/finger right hand; left hand wnl psych - poor insight; a/o x 2 Results & Data Results & Data ([facility]) Vital Signs (Past 12 Hours) Vital Signs Temp Pulse Resp BP Pulse Ox 08/07/21 15:43 36.7 C 88 16 150/83 H 97 08/07/21 09:45 36.9 C 81 16 133/72 98 Laboratory Results Laboratory Results - last 24 hr 08/06/21 08/07/21 08/07/21 21:09 06:03 06:03 WBC RBC Hgb Hct MCV MCH MCHC RDW Std Deviation RDW Coeff of Edouard Plt Count MPV Immature Gran % (Auto) Neut % (Auto) Lymph % (Auto) Preston % (Auto) Eos % (Auto) Baso % (Auto) Neut # (Auto) Lymph # (Auto) Preston # (Auto) Eos # (Auto) Baso # (Auto) Immature Gran # (Auto) Sodium 142 Potassium 3.0 L Chloride 111 H Carbon Dioxide 25 Anion Gap 6.0 BUN 11 Creatinine 0.68 D Est Cr Clr Drug Dosing 72.1 Est GFR ( Amer) 99.2 Est GFR (Non-Af Amer) 85.6 BUN/Creatinine Ratio 15.5 Glucose 103 H POC Glucose Lactate 1.8 Calcium 8.3 L C-Reactive Protein 7.84 H Procalcitonin Stl C. diff Tox B Gene Stl C.difficile Tox A&B Hepatitis C Ab Screen Neg 08/07/21 08/07/21 08/07/21 06:03 06:03 08:12 WBC 12.40 H D RBC 3.77 L Hgb 11.0 L Hct 34.6 L MCV 91.8 MCH 29.2 MCHC 31.8 L RDW Std Deviation 46.4 H RDW Coeff of Edouard 13.8 Plt Count 226 MPV 9.5 Immature Gran % (Auto) 0.2 Neut % (Auto) 76.0 Lymph % (Auto) 17.8 Preston % (Auto) 5.2 Eos % (Auto) 0.7 Baso % (Auto) 0.1 Neut # (Auto) 9.42 H Lymph # (Auto) 2.21 Preston # (Auto) 0.65 H Eos # (Auto) 0.09 Baso # (Auto) 0.01 Immature Gran # (Auto) 0.02 Sodium Potassium Chloride Carbon Dioxide Anion Gap BUN Creatinine Est Cr Clr Drug Dosing Est GFR ( Amer) Est GFR (Non-Af Amer) BUN/Creatinine Ratio Glucose POC Glucose 111 H Lactate Calcium C-Reactive Protein Procalcitonin 5.65 H Stl C. diff Tox B Gene Stl C.difficile Tox A&B Hepatitis C Ab Screen 08/07/21 Unknown WBC RBC Hgb Hct MCV MCH MCHC RDW Std Deviation RDW Coeff of Edouard Plt Count MPV Immature Gran % (Auto) Neut % (Auto) Lymph % (Auto) Preston % (Auto) Eos % (Auto) Baso % (Auto) Neut # (Auto) Lymph # (Auto) Preston # (Auto) Eos # (Auto) Baso # (Auto) Immature Gran # (Auto) Sodium Potassium Chloride Carbon Dioxide Anion Gap BUN Creatinine Est Cr Clr Drug Dosing Est GFR ( Amer) Est GFR (Non-Af Amer) BUN/Creatinine Ratio Glucose POC Glucose Lactate Calcium C-Reactive Protein Procalcitonin Stl C. diff Tox B Gene Positive Cdiff Gene H Stl C.difficile Tox A&B Negative Cdiff Toxin Hepatitis C Ab Screen PG Care Time/CCT Total # of Minutes Spent Total Time Spent with Patient: Total time spent is greater than 50% in coordination of care (as documented) at patient's floor/unit and/or counseling patient: Coding Level of Care Code 95623 Subseq Hosp Care Lvl 3 Diagnoses C. difficile diarrhea A04.72 Syncope R55 Frequent headaches R51.9 H/O: stroke Z86.73 GERD (gastroesophageal reflux disease) K21.9 Hypokalemia E87.6 Vascular dementia F01.50 Chronic constipation K59.09 Hypertension I10 Hypertension type: essential hypertension (1) Hypertension Hypertension type: essential hypertension Qualified Code(s): I10 - Essential (primary) hypertension
[2021-08-07] MEDS: ENOXAPARIN INJ 40 MG/0.4 ML SYR SQ SCH (17:19)
--- NOTE | 2021-08-07 18:17 | Magnetic Resonance Report ---
Brain MRI WITHOUT CONTRAST HISTORY: prolonged loss of consciousness; eval acute CVA TECHNIQUE: Multiplanar multisequence MRI of the brain was performed without the use of contrast. COMPARISON STUDY: Head CT 08/06/2021. Brain MRI 07/31/2020. FINDINGS: There is no mass, hematoma, midline shift, or acute infarct. The paranasal sinuses are jace r. The mastoid air cells are clear. The ventricles and sulci demonstrate moderate to severe age-relat ed involutional changes. Scattered foci of T2 hyperintensity seen within the periventricular and subc ortical white matter are nonspecific but suggestive of moderate to severe microvascular ischemic fitch ges. The major vascular flow voids at the skull base are well-maintained. Old infarcts seen within th e cerebellar hemispheres and bilateral basal ganglia are again noted. Evidence for bilateral lens rep lacement. Anterior nasal septal defect is again noted. IMPRESSION: 1. No significant change compared to the prior study. No acute intracranial abnormality. 2. Atrophy, microvascular ischemic changes, and old infarcts are again noted. ACT 112: Negative or not required by law. Electronically signed by: Jean Colón M.D. 08/07/2021 6:16 PM
[2021-08-07] MEDS: lisinopril 10 MG TAB PO SCH (19:48)
[2021-08-07] MEDS: RASPBERRY SYRUP 5 ML UDP PO SCH (21:21)
[2021-08-07] MEDS: VANCOMYCIN HCL 125 MG/2.5ML SOLN PO SCH (21:21)
[2021-08-07] MEDS: ADVANCED PROBIOTIC 1250 MG CAPSULE PO SCH (21:24)
[2021-08-07] MEDS: ESZOPICLONE 1 MG TAB PO PRN (21:34)
[2021-08-08] MEDS ORDERED: diphenhydrAMINE 50 MG/ML VIAL IV ONE (00:30)
[2021-08-08] MEDS: PIPERACILLIN/TAZOBACTAM 3.375 GM in DEXTROSE 5% 100 ML IV SCH (04:39)
[2021-08-08] MEDS: DULoxetine HCL 30 MG CAP PO SCH (08:46)
[2021-08-08] MEDS: CALCIUM 600MG + VIT D 400 IU TAB PO SCH (08:46)
[2021-08-08] MEDS: CYANOCOBALAMIN 500 MCG TABLET (VITAMIN B-12) PO SCH (08:46)
[2021-08-08] MEDS: ADVANCED PROBIOTIC 1250 MG CAPSULE PO SCH (08:46)
[2021-08-08] MEDS: CLOPIDOGREL BISULFATE 75 MG TAB PO SCH (08:46)
[2021-08-08] MEDS: ATORVASTATIN 40 MG TAB PO SCH (08:47)
[2021-08-08] MEDS: PANTOprazole 40 MG TAB PO SCH (08:47)
[2021-08-08] MEDS: RASPBERRY SYRUP 5 ML UDP PO SCH ×3 (08:47→17:09)
[2021-08-08] MEDS: VANCOMYCIN HCL 125 MG/2.5ML SOLN PO SCH ×3 (08:49→17:09)
[2021-08-08] MEDS: ACETAMINOPHEN 325 MG TAB PO PRN (10:37)
[2021-08-08 10:53] LABS: BUN Creatinine Ratio 10.6 (10-20); C Reactive Protein 2.43 mg/dl (0-0.29); Calcium 8.3 mg/dl (8.5-10.1); Creatinine Clr Calc Pharmacy 69.1 ml/min; Est GFR (African American) 96.6 ml/min; Est GFR (Non-African American) 83.3 ml/min; Potassium 3.2 mmol/L (3.5-5.1)
[2021-08-08] MEDS ORDERED: POTASSIUM CHLORIDE CRTAB 20 MEQ TABCR PO STA (11:50)
--- NOTE | 2021-08-08 16:57 | Discharge Summary ---
Date of Service date of admission - August 06, 2021 date of discharge - August 08, 2021 Admission HPI Per Admitting Provider 76 YOF with past medical history of: CVA/TIA- right periventricular stroke in 2019, mild dementia, fall onto previously partially replaced right hip(2018) fall may 2021- with fracture of greater trochanter- conservative approach, GERD, anxiety, HLD, HTN. Patient comes to the EMD today via EMS secondary to syncopal episode on the BSC this morning. reports that he got up assisted her on the commode, she had loose BM and then went unresponsive she awakened shortly after and was brought to the ER. There were some original concerns by EMS for right sided facial droop and gaze deviation but no appearance of such on arrival and believes she is at her baseline. She has endorsed headache that is bilateral behind both her eyes and is feels more like pressure. This was ongoing over the past 2 days, and was relieved with Tylenol in the ER. She has no focal deficits or residual effects on my exam. She had CXR done, CT scan of the head- negative for acute process and clear sinuses. She had routine lab work done that revealed a WBC count of 26, with elevated NLR, PCT of 6.8 and CRP of 3.11. She had blood cultures done, UA done (negative), Lactate elevated to 3.5, she was given 1 dose of empiric Zosyn. Hospitalist was consulted for admission. On evaluation patient is alert and oriented without any focal deficits, skin rash, she is warm on palpation. No abdominal or pelvic pain noted, no pain at right hip and no identifiable areas of erythema or infection. No murmurs and no dental pain and no recent visits to the dentist either. Will obtain CT with IV contrast of her abd/pelvis with onset of diarrhea this morning. Will continue her empiric Zosyn and follow her biomarkers. No obvious infection to reflect her laboratory abnormalities at this time. Continue to search for cause. Her COVID test on admission is negative. Principal Diagnosis 1. syncope 2. c diff infection Discharge Exam gen - NAD, pleasant confusion with poor insight eyes - PERRL, EOMI mouth - MMM, minimal posterior pharyngeal erythema neck - no JVD heart - RRR, s1 s2, no murmur lungs - CTA b/l abd - soft NT ND BS+ ext - no edema, pulses 2+ b/l neuro - no facial droop; strength 5/5 x 4 exts; minimal ataxia finger/nose/finger right hand; left hand wnl psych - poor insight; a/o x 2 Discharge Data Allergies Allergy/AdvReac Type Severity Reaction Status Date / Time No Known Drug Allergies Allergy Unknown . Verified 07/20/21 11:55 Adhesive Tape Allergy Unknown Unknown Uncoded 07/20/21 11:55 Consultations Physical Therapy Procedures Performed C diff testing - gene POSITIVE; toxin NEGATIVE Echocardiogram - * EF 60-65% * mild mitral regurgitation * normal regional wall motion of LV Ordered Studies Chest X-Ray 08/06/21 10:40 SINGLE VIEW CHEST CLINICAL HISTORY: Sepsis. FINDINGS: An AP, portable, upright chest radiograph is compared to study dated 04/07/2019. The examination is degraded by portable technique and patient rotation. The heart is top normal for projection noting atherosclerotic calcification of the thoracic aorta. There is mild bibasilar scarring/atelectasis. The lungs and pleural spaces are otherwise clear. No pneumothorax is seen. The skeletal structures are osteopenic. The bony thorax is grossly intact. Surgical clips project over the right axilla and the right breast. IMPRESSION: No acute cardiopulmonary abnormality. ACT 112: Negative or not required by law. Electronically signed by: Miguel Hernandez M.D. 08/06/2021 11:[address] 08/06/21 10:40 CT SCAN OF THE BRAIN WITHOUT IV CONTRAST CLINICAL HISTORY: Change in mental status. COMPARISON STUDY: CT of the brain dated 07/31/2020. TECHNIQUE: Unenhanced axial CT scan of the brain is performed from the vertex to the skull base. A dose lowering technique was utilized adhering to the principles of ALARA. CT DOSE: 614.27 mGy.cm FINDINGS: Brain parenchyma: There are age-related involutional changes noting advanced confluent subcortical and periventricular microangiopathic change. Foci of bilateral cerebellar encephalomalacia are consistent with remote infarcts. A chronic lacunar infarct is noted in the left basal ganglia. There is no hemorr karina, mass effect, or evidence of acute territorial ischemia by CT criteria. Matthews-white matter differentiation is preserved. No extra-axial fluid collection is seen. Ventricles, sulci, cisterns: Prominent secondary to involutional change. Intracranial vasculature: There is atherosclerotic calcification of the cavernous carotid and vertebral arteries. Calvarium: Unremarkable. Sinuses and mastoids: The visualized paranasal sinuses are clear. The mastoid air cells are well pneumatized. Orbits: The bony orbits are grossly intact. IMPRESSION: Senescent changes as above with no hemorrhage, mass effect, or evidence of acute territorial ischemia by CT criteria. ACT 112: Negative or not required by law. Electronically signed by: Miguel Hernandez M.D. 08/06/2021 10:58 AM Brain MRI 08/07/21 16:17 Brain MRI WITHOUT CONTRAST HISTORY: prolonged loss of consciousness; eval acute CVA TECHNIQUE: Multiplanar multisequence MRI of the brain was performed without the use of contrast. COMPARISON STUDY: Head CT 08/06/2021. Brain MRI 07/31/2020. FINDINGS: There is no mass, hematoma, midline shift, or acute infarct. The paranasal sinuses are clear. The mastoid air cells are clear. The ventricles and sulci demonstrate moderate to severe age-related involutional changes. Scattered foci of T2 hyperintensity seen within the periventricular and subcortical white matter are nonspecific but suggestive of moderate to severe microvascular ischemic changes. The major vascular flow voids at the skull base are well- maintained. Old infarcts seen within the cerebellar hemispheres and bilateral basal ganglia are again noted. Evidence for bilateral lens replacement. Anterior nasal septal defect is again noted. IMPRESSION: 1. No significant change compared to the prior study. No acute intracranial abnormality. 2. Atrophy, microvascular ischemic changes, and old infarcts are again noted. ACT 112: Negative or not required by law. Electronically signed by: Jean Colón M.D. 08/07/2021 6:16 PM Hospital Course (1) C. difficile diarrhea: The patient had a loose stool in the midst of her syncopal spell at home. Upon admission she continued with diarrhea. By report the stools were loose and mucous-filled with odor. Although the patient's c diff toxin was negative, her c diff gene was positive - and given the leukocytosis, elevated procalcitonin, etc without another cause/etiology for such (blood cx's neg, urine cx neg, cxr neg for pneumonia, covid neg) - will Rx for c diff with vancomycin 125mg QID x 10 days. Hold stool softeners. Contact precautions while hospitalized and good handwashing/cleaning at home. C diff handout given at discharge. (2) Syncope: Her episode of loss of consciousness lasted 30+ minutes per her . 2nd to developing illness (ie - #1 above) ? arrhythmia? other? Echocardiogram was wnl. Troponin was negative. MRI brain did not show acute stroke or other acute abnormalities. Blood cx's and urine cx were both negative. She had minimal hypokalemia but not low enough to lead to extreme weakness or syncope. I recommended a 30-day event monitor for after discharge to r/o arrhythmia as the cause of her syncope. This will be arranged for her at discharge and [facility] typically interprets these when completed. (3) Frequent headaches: chronic, multiple headaches each week. deserves f/u with [facility] [place]c for these. prophylaxis likely would be helpful. sed rate was 29. headache features are not suggestive of temporal arteritis. (4) H/O: stroke: No acute CVA seen on MRI brain during this admission. Continue plavix for secondary prevention. (5) GERD (gastroesophageal reflux disease): cont PPI (6) Hypokalemia: Lowest K level was 3 while here. Records suggest tendencies towards low K. Her diarrhea would have made this worse. She will continue K supplementation post-discharge. She should have a f/u BMP at time of hospital follow-up. Mag level was normal at 2 while here. (7) Vascular dementia: 2nd to prior strokes. No significant behavioral disturbance or delirium during the visit. (8) Chronic constipation: given #1 - hold colace, miralax, etc post-discharge. (9) Hypertension: cont home meds as previous. PT eval completed - was cleared to return home with her at discharge. Total Time Total Time Spent Total Time Spent (In Minutes): 45 Discharge Plan Discharge Items Patient Disposition: Home - Self-Care Reason For Visit: Loss of consciousness Discharge Diagnosis: 1. loss of consciousness episode/"syncope" - exact cause uncertain; due to illness/infection? dehydration? other cause? No new stroke on the MRI of the brain (old strokes seen only). 2. c diff infection. Activity: Resume your previous activity Non-emergency contact: Primary Care Provider Call non-emergency contact if: you have any medication questions, your symptoms worsen and you have a fever Follow-up/Referrals: Elizabeth Ramirez CRNP [Primary Care Provider] - 08/16/21 3:10 pm (see Ms Ramirez within 5-7 days ) Diet: Heart Healthy Addtl Attending Provider Instructions: Mrs Meza, Loki were admitted to the hospital after having an episode of syncope (passing out/loss of consciousness) at home. During the episode you had a loose bowel movement. Upon arrival to [facility] your white blood cell count was high, and there were other tests that suggested that you had an infection. Ultimately we found that you likely have c diff infection of the colon. We did NOT find evidence of COVID-19, urinary infection, blood stream infection, or pneumonia. Your blood work improved while here. We started you on vancomycin antibiotic for your c diff infection. Your echocardiogram of your heart showed normal heart function. Recommendations - 1. take oral vancomycin, 125mg FOUR times daily for 10 days. Start this tomorrow morning. This is your antibiotic for c diff. 2. c diff infection is contagious. Good handwashing for minimum of 20 seconds with soap and water rids your hands of potential c diff. Purell / alcohol-based hand electromedical service engineer does NOT kill c diff. To clean bathrooms, counter tops, toilets, door knobs, etc - please use bleach wipes or diluted liquid bleach. Wash linens, underwear, etc in hot water with a little bleach if possible. The risk of contagiousness is highest as long as there is active diarrhea. 3. typically after 4-5 days of vancomycin the stools start to normalize again. 4. take an [id number] probiotic for the next couple of weeks. This may help your stools. 5. eat a diet low in fiber (see handout) over the next week or so (or as long as the stools are loose). 6. please HOLD your stool softeners/bowel agents/constipation aids until your stools are back to normal. 7. for your passing out spell - we will continue to look for causes of this. To that end please wear a 30-day heart/event monitor (see handout). This will rule out a.fib and other heart rhythm problems that can lead to stroke, passing out spells, etc. This will be mailed to your home within the next week. It will have instructions on its use. See handout on "syncope." 8. your potassium level was mildly low while here. The diarrhea makes this worse. Please continue your potassium supplement as previous. Have your family doctor recheck your potassium & magnesium levels at time of hospital follow-up. 9. continue to use your cane at home as previous. Follow-up - see separate section Return to [facility] if - * your diarrhea worsens despite the vancomycin * you start to see large amounts of blood in the stool * you have abdominal pains * you are concerned about dehydration * you have recurrent episodes of passing out * you have fever over 100 degrees * any other concerns It was our pleasure caring for you! Dr Toscano Pending Studies at Discharge: Yes Studies:: blood cultures, but thus far no evidence of infection in the blood stream Stand-Alone Forms: My [facility], Smoking Cessation Medications and DC Order Prescriptions: New vancomycin 125 mg capsule 125 mg PO QID 10 Days Qty: 40 RF: 0 Continued cyanocobalamin (vitamin B-12) [Vitamin B-12] 1,000 mcg Tablet 1,000 mcg PO QAM RF: 0 hydrocodone-acetaminophen 5-325 mg tablet 1 tab PO Q6 RF: 0 duloxetine 30 mg capsule,delayed release(DR/EC) 30 mg PO BID RF: 0 zolpidem 5 mg tablet 5 mg PO HS PRN (Reason: Sleep) RF: 0 ibandronate 150 mg tablet 150 mg PO MONTHLY RF: 0 potassium chloride 20 mEq tablet,ER particles/crystals 20 meq PO QAM RF: 0 lisinopril 10 mg tablet 10 mg PO HS Qty: 30 RF: 1 clopidogrel 75 mg Tablet 75 mg PO QAM Qty: 30 RF: 0 atorvastatin 80 mg tablet 80 mg PO QAM RF: 0 pantoprazole 40 mg tablet,delayed release (DR/EC) 40 mg PO QAM RF: 0 diphenhydramine-acetaminophen [Tylenol PM Extra Strength] 25-500 mg Tablet 2 tab PO HS RF: 0 calcium carbonate-vitamin D3 [Caltrate with Vitamin D3] 600 mg-20 mcg (800 unit) Tablet 1 tab PO QAM RF: 0 Discontinued docusate sodium 100 mg Capsule 100 mg PO BID Qty: 60 RF: 0 polyethylene glycol 3350 [Miralax] 17 gram/dose Powder 17 g PO HS RF: 0 Discharge Orders: Discharge Order (Routine); Ordered 08/08/21 Ordered By: Carl Ferguson/Other Patient Handouts: Low-Fiber Diet, What Is Event Monitoring?, What Is Syncope?, What Is C. Diff? Admission Data Admit Date/Time: 08/06/21 14:16 Attending Provider: Carl Toscano Admit Provider: Connor Luna Primary Care Provider: Elizabeth Ramirez Other Providers: Link Khan Other Interventions: Discharge Summary Assessment (RN) Last Done: 08/08/21 16:57 Coding Level of Care Code D/C DAY MANAGEMENT >30 MINS Diagnoses C. difficile diarrhea A04.72 Syncope R55 Frequent headaches R51.9 H/O: stroke Z86.73 GERD (gastroesophageal reflux disease) K21.9 Hypokalemia E87.6 Vascular dementia F01.50 Chronic constipation K59.09 Hypertension I10 Hypertension type: essential hypertension
== END 2021-08-08 18:15 | disposition home or self-care (01) | DRG 373 ==
LOC: ED 10:34 → SUATTDRO 14:16 → 3W 14:16

== ENCOUNTER 2021-09-30 13:30 | Inpatient (IN) ==
--- NOTE | 2021-09-30 14:12 | Emergency Department Note ---
Impression & Plan Hypoxemia, Fall, Fracture of lumbar spine, Elevated troponin I level ED Provider Note NAME: VARSHA TORRES AGE: 76 SEX: F : 1945 ARRIVES VIA: Ambulance INFORMANT: Patient, ED PROVIDER(S): Bairon Christianson MD Chief Complaint: Back pain HPI: Patient presents from home due to concern for persistent back pain that she states is in the midline and lower back is achy and sharp on occasion. The patient states he does get worse with Menser with trying to ambulate. The patient states that she did have a fall several days ago and fell to her buttocks. The patient denies any head strike or upper thoracic back pain chest pain or shortness of breath. EMS when they arrived to see the patient the patient was noted to be hypoxic into the mid to high 80s and was placed on nasal cannula supplemental oxygen. The patient is vaccinated for COVID has had a slight cough of late but it is nonproductive. No leg swelling and no history of DVT or PE. No recent surgeries procedures or hospitalizations. The patient has been trying to take some [place] for her pain but this is not improved her symptoms. Patient does complain of mobility issues but does not complain of true weakness or numbness in her lower extremities. ROS: See HPI for pertinent positives and negatives. A total of 10 systems were reviewed and otherwise negative. Past medical history: See below Surgical history: See below Social history: See below Physical Exam: GENERAL: NAD, wearing a mask, non-toxic. EYE EXAM: Normal conjunctiva. PERRL, no anisocoria and EOM's grossly intact w/o pain. OROPHARYNX: Moist mucus membranes. Grossly normal dentition. NECK: Supple, no nuchal rigidity, no adenopathy, non-tender. No signs of meningismus. LUNGS: Clear to auscultation. Normal chest wall mechanics. HEART: NSR, no MRG. ABDOMEN: Abdomen soft, non-tender, normo-active bowel sounds, no masses, no rebound or guarding. BACK: Reproducible midline lower lumbar pain. SKIN: No rashes and no bruising. UPPER EXTREMITIES: Upper extremities are grossly normal. LOWER EXTREMITIES: Grossly normal, no edema. Negative Homans' sign bilaterally. NEURO EXAM: A&O x3, cranial nerves II-XII grossly intact, normal speech, moves bilateral upper extremities without issue, bilateral lower extremities with decreased range of motion secondary to pain, no sensory deficits. No saddle anesthesia Differential diagnoses: Musculoskeletal, disc herniation, fracture, metastatic disease, cord compression, discitis, sciatica, cauda equina, infection, aortic disease, renal colic, gastrointestinal, as well as other pathologies. Course: Patient was seen and evaluated the bedside. Full history physical exam was performed. EKG interpreted by Sinus with PVC noted, rate of 100, normal intervals, left axis deviation. T wave flattening in V2. Imaging Studies: See Below Cardiac monitoring: An order was placed for continuous cardiac monitoring. The monitor shows a rate of 92 with sinus rhythm. MDM: Patient did present due to concern for back pain. The patient also was noted to be hypoxic so this was further worked up as well. Patient denies any chest pains or shortness of breath. Below shows a white count of 12 with a hemoglobin 11.4. Platelet count is unremarkable. Patient's kidney function is unremarkable. Calcium normal. Patient's initial troponin 0.23. Patient does not have any signs of overt ST elevation and the patient denies any chest pain or shortness of breath at this time. Patient did have a CT angiography ordered. Patient's initial chest x-ray showed the concern for possibility of pneumonia. Given the patient's oxygen requirement the patient was ordered Rocephin and azithromycin. Covid negative. The patient's CT lumbar spine shows L5 vertebral body fracture CT angiography does not show any evidence of PE although somewhat suboptimally assessed secondary to respiratory motion. There is mild pulmonary edema although patient does not have any overt crackles and no signs of obvious volume overload on exam. There is concern based on the patient's CT that patient may have possible elevated right heart pressures. Patient was ordered full dose aspirin as a precaution the patient was still without any acute symptoms at this time. The patient's back pain was treated. I did speak with the on-call hospitalist and the patient was admitted to the medicine service by Dr. Villasenor. I did discuss the case briefly with Dr. Arceo who did not recommend heparin at this time. Critical Care: I have personally spent 37 minutes of critical care time in direct management of this patient. This includes bedside care, interpretation of diagnostic studies, and testing, discussion with consultants, patient, and family members, and other require inpatient management activities. This 37 minutes is in excess of all separately billable procedures. Past Med/Surg History Medical History Acid reflux Anxiety Aphasia H/O FROM STROKE 09/2018. Breast cancer 2000. RIGHT LUMPECTOMY. Chronic back pain Closed fracture of right distal tibia Constipation reason for scheduled colonoscopy Degenerative disc disease Depression Deviated septum Fracture of greater trochanter of right femur H/O: stroke High cholesterol Hypertension On anticoagulant therapy Osteoarthritis Peptic ulcer disease H/O BLEEDING ULCERS Right leg pain Stroke SEPTEMBER 17, 2018. TREATED AT [facility]. FOLLOWED WITH DR HOLT. SHORT TERM MEMORY DIFFICULTIES, reason for plavix Stroke-like symptoms 09/2018 Transient ischemic attack (TIA) H/O. LAST EPISODE WAS OCTOBER 2017 Surgical History Fusion of spine LUMBAR H/O: hysterectomy History of ankle surgery History of arthroscopy BILATERAL KNEE ARTHROSCOPY History of back surgery (7 TOTAL) History of carpal tunnel release BILATERAL History of cataract surgery BILATERAL History of colonoscopy History of discectomy LUMBAR x4 History of esophagogastroduodenoscopy (EGD) History of open reduction and internal fixation (ORIF) procedure right ankle fx---hardware in place Hx of lumpectomy RIGHT Status post ORIF of fracture of ankle Family History Brother Stroke Mother , age 80 of heart issues. Coronary heart disease [place] Father , age 36 in a motor vehicle accident No problems noted. Other No family history of adverse response to anesthesia Social History Smoking Status: Never smoker Second Hand Exposure: No; Hx Alcohol Use: No Hx Substance Use: Yes Preferred Language: Kyrgyz Communication Ability: Effective Visual Impairment: No Limitations Sludge Control Attendant Required: No Beliefs That Will Affect Care: None marital status: Current Living Situation: Spouse current occupational status: previously employed How many Children do You have: 0 Other Information That Helps Us Care for You: No Feels Safe at Home: Yes Safety Concerns: Feels Safe At This Time Assistive Devices: Walker Allergies Allergies Allergy/AdvReac Type Severity Reaction Status Date / Time No Known Drug Allergies Allergy Unknown . Verified 09/30/21 17:32 Adhesive Tape Allergy Unknown Unknown Uncoded 09/30/21 17:32 Home Meds Home Medications Medication Instructions Recorded Confirmed cyanocobalamin (vitamin B-12) 1,000 mcg PO QAM 12/14/18 09/30/21 1,000 mcg tablet (Vitamin B-12) atorvastatin 80 mg tablet 80 mg PO QAM 03/06/19 09/30/21 pantoprazole 40 mg tablet,delayed 40 mg PO QAM 03/06/19 09/30/21 release duloxetine 30 mg capsule,delayed 30 mg PO BID 07/31/20 09/30/21 release ibandronate 150 mg tablet 150 mg PO MONTHLY 07/31/20 09/30/21 potassium chloride 20 mEq 20 meq PO QAM 07/31/20 09/30/21 tablet,extended release(part/cryst) calcium carbonate 600 mg-vitamin 1 tab PO QAM 08/06/21 09/30/21 D3 20 mcg (800 unit) tablet (Caltrate with Vitamin D3) diphenhydramine 25 2 tab PO HS 08/06/21 09/30/21 mg-acetaminophen 500 mg tablet (Tylenol PM Extra Strength) Lactobacillus acidophilus 10 10,000 mmu cells PO DAILY 09/30/21 09/30/21 billion cell capsule (Probiotic) hydrocodone 5 mg-acetaminophen 325 1 tab PO UD PRN 09/30/21 09/30/21 mg tablet Previous Rx's Medication Instructions Recorded clopidogrel 75 mg tablet 75 mg PO QAM #30 tab 09/18/18 lisinopril 10 mg tablet 10 mg PO HS #30 tab 07/31/20 Results & Data (ED) Vital Signs Vital Signs - 24 hr 09/30/21 13:54 09/30/21 14:00 09/30/21 14:01 Temperature 37.1 C Temperature Source Oral Pulse Rate 103 H 96 H Pulse Rate [Apical] 103 H Pulse Rate from SpO2 Sensor 96 H Respiratory Rate 20 16 Respiratory Effort / Characteristics Non-Labored Spontaneous Respiratory Depth Normal Respiratory Pattern Regular Blood Pressure 122/79 122/86 Blood Pressure [Right Arm] 122/79 Blood Pressure Mean 93 98 Blood Pressure Mean [Right Arm] 93 Blood Pressure Position [Right Arm] Pulse Oximetry 86 L 93 Oxygen Delivery Method Room Air Nasal Cannula Oxygen Flow Rate 3 Sepsis Recent Fever Within 48 Hours No Sepsis New/Unexplained Change in Mental Status No Sepsis Action Taken by Nursing No Action Required 09/30/21 14:40 09/30/21 15:18 09/30/21 17:00 Temperature Temperature Source Pulse Rate 96 H Pulse Rate [Apical] 95 H 92 H Pulse Rate from SpO2 Sensor Respiratory Rate 20 20 20 Respiratory Effort / Characteristics Non-Labored Spontaneous Non-Labored Spontaneous Respiratory Depth Normal Normal Respiratory Pattern Regular Regular Blood Pressure Blood Pressure [Right Arm] 116/70 118/72 Blood Pressure Mean Blood Pressure Mean [Right Arm] 85 87 Blood Pressure Position [Right Arm] Sitting Sitting Pulse Oximetry 94 93 93 Oxygen Delivery Method Nasal Cannula Nasal Cannula Nasal Cannula Oxygen Flow Rate 3 3 3 Sepsis Recent Fever Within 48 Hours Sepsis New/Unexplained Change in Mental Status Sepsis Action Taken by [facility] Medications Current Medication List: was personally reviewed by me Laboratory Data Attestation: I reviewed the patient's lab results. Result diagrams: 10/01/21 03:43 10/01/21 03:43 Lab Results 09/30/21 09/30/21 09/30/21 Range/Units 14:35 14:35 14:35 WBC 12.88 H (4.8-10.8) K/uL RBC 3.98 L (4.2-5.4) M/uL Hgb 11.4 L (12.0-16.0) g/dL Hct 35.8 L (37-47) % MCV 89.9 (80-100) fL MCH 28.6 (25-34) pg MCHC 31.8 L (32-36) g/dL RDW Std Deviation 44.7 (36.4-46.3) fL RDW Coeff of Edouard 13.6 (11.5-14.5) % Plt Count 183 (130-400) K/uL MPV 10.2 (7.4-10.4) fL Immature Gran % (Auto) 0.2 % Neut % (Auto) 83.7 % Lymph % (Auto) 6.8 % Starr % (Auto) 8.1 % Eos % (Auto) 1.0 % Baso % (Auto) 0.2 % Neut # (Auto) 10.79 H (1.4-6.5) K/uL Lymph # (Auto) 0.87 L (1.2-3.4) K/uL Starr # (Auto) 1.04 H (0.11-0.59) K/uL Eos # (Auto) 0.13 (0-0.5) K/uL Baso # (Auto) 0.02 (0-0.2) K/uL Immature Gran # (Auto) 0.03 H (0.00-0.02) K/uL Sodium 141 (136-145) mmol/L Potassium 3.7 (3.5-5.1) mmol/L Chloride 107 (98-107) mmol/L Carbon Dioxide 26 (21-32) mmol/L Anion Gap 8 (3-11) BUN 15 (6-23) mg/dl Creatinine 0.52 L (0.6-1.2) mg/dl Est Cr Clr Drug Dosing 94.3 ml/min Est GFR ( Amer) 108.3 ml/min Est GFR (Non-Af Amer) 93.5 ml/min BUN/Creatinine Ratio 28.8 H (10-20) Glucose 110 H (70-99(Fasting)) mg/dl Calcium 8.5 (8.5-10.1) mg/dl Total Bilirubin 0.9 (0.2-1.0) mg/dl AST 21 (13-39) U/L ALT 15 (7-52) U/L Alkaline Phosphatase 46 (34-104) U/L Troponin I 0.23 H* (0-0.04) ng/ml Total Protein 6.4 (6.0-8.3) gm/dl Albumin 3.8 (3.4-5.0) gm/dl Globulin 2.6 (2.5-4.0) gm/dl Albumin/Globulin Ratio 1.5 (0.9-2) TSH 2.494 (0.300-4.500) uIu/ml SARS-CoV-2, RNA, NAAT (NEGATIVE) 09/30/21 Range/Units 15:55 WBC (4.8-10.8) K/uL RBC (4.2-5.4) M/uL Hgb (12.0-16.0) g/dL Hct (37-47) % MCV (80-100) fL MCH (25-34) pg MCHC (32-36) g/dL RDW Std Deviation (36.4-46.3) fL RDW Coeff of Edouard (11.5-14.5) % Plt Count (130-400) K/uL MPV (7.4-10.4) fL Immature Gran % (Auto) % Neut % (Auto) % Lymph % (Auto) % Starr % (Auto) % Eos % (Auto) % Baso % (Auto) % Neut # (Auto) (1.4-6.5) K/uL Lymph # (Auto) (1.2-3.4) K/uL Starr # (Auto) (0.11-0.59) K/uL Eos # (Auto) (0-0.5) K/uL Baso # (Auto) (0-0.2) K/uL Immature Gran # (Auto) (0.00-0.02) K/uL Sodium (136-145) mmol/L Potassium (3.5-5.1) mmol/L Chloride (98-107) mmol/L Carbon Dioxide (21-32) mmol/L Anion Gap (3-11) BUN (6-23) mg/dl Creatinine (0.6-1.2) mg/dl Est Cr Clr Drug Dosing ml/min Est GFR ( Amer) ml/min Est GFR (Non-Af Amer) ml/min BUN/Creatinine Ratio (10-20) Glucose (70-99(Fasting)) mg/dl Calcium (8.5-10.1) mg/dl Total Bilirubin (0.2-1.0) mg/dl AST (13-39) U/L ALT (7-52) U/L Alkaline Phosphatase (34-104) U/L Troponin I (0-0.04) ng/ml Total Protein (6.0-8.3) gm/dl Albumin (3.4-5.0) gm/dl Globulin (2.5-4.0) gm/dl Albumin/Globulin Ratio (0.9-2) TSH (0.300-4.500) uIu/ml SARS-CoV-2, RNA, NAAT NEGATIVE (NEGATIVE) Administered Medications Acetaminophen (Acetaminophen 500 Mg Tab) 1,000 mg PO TID LIOR Stop: 10/30/21 22:44 Last Admin: 10/01/21 07:50 Dose: 1,000 mg Documented by: [id number] Admin: 09/30/21 23:01 Dose: 1,000 mg Documented by: [id number] Atorvastatin Calcium (Atorvastatin 40 Mg Tab) 80 mg PO QAM LIOR Stop: 10/31/21 08:59 Last Admin: 10/01/21 07:51 Dose: 80 mg Documented by: [id number] Azithromycin (Azithromycin 250 Mg Tab) 500 mg PO QAM [facility] Stop: 10/03/21 08:59 Last Admin: 10/01/21 07:51 Dose: 500 mg Documented by: [id number] Clopidogrel Bisulfate (Clopidogrel Bisulfate 75 Mg Tab) 75 mg PO QAM [facility] Stop: 10/31/21 08:59 Last Admin: 10/01/21 07:51 Dose: 75 mg Documented by: [id number] Cyanocobalamin (Cyanocobalamin (B-12) 500 Mcg Tablet) 1,000 mcg PO QAM [facility] Stop: 10/31/21 08:59 Last Admin: 10/01/21 07:51 Dose: 1,000 mcg Documented by: [id number] Diphenhydramine HCl (Diphenhydramine Capsule 25 Mg Cap) 50 mg PO HS [facility] Stop: 10/30/21 22:09 Last Admin: 09/30/21 23:01 Dose: Not Given Documented by: [id number] Duloxetine HCl (Duloxetine Hcl 30 Mg Cap) 30 mg PO BID [facility] Stop: 10/30/21 22:04 Last Admin: 10/01/21 07:50 Dose: 30 mg Documented by: [id number] Admin: 09/30/21 23:01 Dose: 30 mg Documented by: [id number] Enoxaparin Sodium (Enoxaparin Inj 40 Mg/0.4 Ml Syr) 40 mg SQ QAM [facility] Stop: 10/31/21 08:59 Last Admin: 10/01/21 07:53 Dose: Not Given Documented by: [id number] Lactobacillus Acidophilus (Advanced Probiotic 1250 Mg Capsule) 2 cap PO DAILY [facility] Stop: 10/31/21 08:59 Last Admin: 10/01/21 07:51 Dose: 2 cap Documented by: [id number] Melatonin (Melatonin 3 Mg Tab) 3 mg PO HS PRN PRN Reason: Sleep Stop: 10/30/21 22:25 Last Admin: 09/30/21 23:03 Dose: 3 mg Documented by: [id number] Pantoprazole Sodium (Pantoprazole 40 Mg Tab) 40 mg PO QAM [facility] Stop: 10/31/21 08:59 Last Admin: 10/01/21 07:51 Dose: 40 mg Documented by: [id number] Potassium Chloride (Potassium Chloride Crtab 20 Meq Tabcr) 20 meq PO QAM [facility]OR Stop: 10/31/21 08:59 Last Admin: 10/01/21 07:51 Dose: 20 meq Documented by: [id number] Discontinued Medications Acetaminophen (Acetaminophen 500 Mg Tab) 1,000 mg PO LIOR Stop: 10/30/21 22:09 Last Admin: 09/30/21 22:40 Dose: Not Given Documented by: [id number] Aspirin (Aspirin Chew 324 Mg) 324 mg PO NOW STA Stop: 09/30/21 17:03 Last Admin: 09/30/21 17:07 Dose: 324 mg Documented by: [id number] Fentanyl Citrate (Fentanyl Citrate 100 Mcg/2 Ml Vial) 25 mcg IV NOW STA Stop: 09/30/21 14:21 Last Admin: 09/30/21 14:59 Dose: 25 mcg Documented by: [id number] Fentanyl Citrate (Fentanyl Citrate 100 Mcg/2 Ml Vial) 25 mcg IV NOW STA Stop: 09/30/21 17:13 Last Admin: 09/30/21 17:24 Dose: 25 mcg Documented by: [id number] Furosemide (Furosemide Inj 20 Mg/2 Ml Vial) 20 mg IV ONE STA Stop: 09/30/21 18:57 Last Admin: 09/30/21 19:05 Dose: 20 mg Documented by: [id number] Ceftriaxone Sodium (Rocephin) 2,000 mg in 70 mls @ 140 mls/hr IV NOW STA Stop: 09/30/21 15:54 Last Infusion: 09/30/21 17:04 Dose: 0 mls/hr Documented by: [id number] Admin: 09/30/21 15:51 Dose: 140 mls/hr Documented by: [id number] Azithromycin 500 mg/ Dextrose 255 mls @ 125 mls/hr IV ONE ONE Stop: 09/30/21 17:27 Last Infusion: 09/30/21 18:19 Dose: 0 mls/hr Documented by: [id number] Admin: 09/30/21 15:52 Dose: 125 mls/hr Documented by: [id number] Ioversol (Optiray 320 125ml) 110 ml IV ONCE ONE Stop: 09/30/21 16:25 Last Admin: 09/30/21 16:24 Dose: 1 ml Documented by: [id number] Lisinopril (Lisinopril 10 Mg Tab) 10 mg PO HS LIOR Stop: 10/30/21 22:04 Last Admin: 09/30/21 22:40 Dose: Not Given Documented by: [id number] Ondansetron HCl (Ondansetron Inj 2 Mg/Ml 2 Ml Vial) 4 mg IV NOW STA Stop: 09/30/21 14:21 Last Admin: 09/30/21 15:00 Dose: 4 mg Documented by: [id number] Imaging Data Radiologist's Impression: Chest X-Ray 09/30/21 14:21 XR chest 1V portable CLINICAL HISTORY: weakness COMPARISON STUDY: Chest radiograph August 06, 2021. FINDINGS: Elevation of the right hemidiaphragm is increased since prior exam. Mild asymmetric right lung opacity is present. Left lung is clear. Right axillary/breast surgical clips are noted. Mild cardiomegaly is noted without evidence for pulmonary edema. IMPRESSION: 1. Asymmetric mild right lung airspace opacity. This could reflect an infectious process. Radiographic follow-up is recommended. 2. Increase in elevation of the right hemidiaphragm. ACT 112: Negative or not required by law. Electronically signed by: Nik Bolton M.D. 09/30/2021 2:[address] 09/30/21 15:[address] DOSE: 990.43 mGy.cm HISTORY: Low back pain s/p fall TECHNIQUE: Multiaxial CT images of the lumbar spine were performed and reformatted in the sagittal and coronal plane without the use of contrast. A dose lowering technique was utilized adhering to the principles of ALARA. COMPARISON: None. FINDINGS: Mild levoscoliosis within the lower lumbar spine. The L3-L5 vertebral bodies and facets are fused. Prior posterior decompression from L3 through L5. There is an acute nondisplaced horizontal fracture through the L5 vertebral body. No significant loss of height. This does not extend to the posterior elements. Severe disc space narrowing at L2-L3. Moderate facet degenerative changes within the lumbar spine. Mild sclerosis at the S1 level may be due to a healed insufficiency fracture. This does not appear to be acute. IMPRESSION: 1. An acute nondisplaced horizontal fracture of the L5 vertebral body. No significant loss of height. This is not extend to the posterior elements. 2.. The changes as described above. 3. The L3-L5 vertebral bodies and facets are fused. 4. Mild sclerosis at the S1 level may be due to an old healed insufficiency fracture. The sternoclavicular ACT 112: Negative or not required by law. Electronically signed by: Jean Colón M.D. 09/30/2021 4:32 PM Chest CTA 09/30/21 15:38 CT ANGIOGRAPHY OF THE CHEST, PULMONARY EMBOLUS PROTOCOL CLINICAL HISTORY: +trop, O2 requirement. Evaluate for pulmonary embolus. COMPARISON STUDY: Chest radiograph August 06, 2021 and September 30, 2021. TECHNIQUE: Following IV administration of 110 mL of Optiray, helical axial images of the chest were obtained utilizing the pulmonary embolus protocol. Maximal intensity projections and sagittal and coronal reformats were viewed on an independent 3D workstation. IV contrast was administered without comp lication. Automated exposure control was utilized for the study. A dose lowering technique was utilized adhering to the principles of ALARA. FINDINGS: No pulmonary emboli are identified although the lower lobe pulmonary arteries are suboptimally assessed due to respiratory motion. There is no t horacic aortic dissection. Moderate cardiomegaly is noted. There is no pericardial effusion. Right heart chambers are dilated. Interventricular septum is straightened. Caliber of the central pulmonary arteries is at the upper limits of normal. Interlobular septal thickening is slightly greater within the right lung. Subpleural groundglass and linear opacities represent atelectasis. There is no consolidation to suggest pneumonia. No pneumothorax or pleural effusion is noted. Postoperative findings within the right breast and right axilla are present. No acute fractures are identified within visualized portions of the bony thorax. IMPRESSION: 1. No pulmonary emboli identified although lower lobe segmental and subsegmental pulmonary arteries suboptimally assessed due to respiratory motion. 2. Interstitial pulmonary edema. 3. Dilated right heart chambers with straightening of the interventricular septum. The findings raise the possibility of elevated right heart pressures/pulmonary arterial hypertension. Moderate coronary artery calcification, particularly within the LAD. 4. Linear and groundglass opacities suggestive of atelectasis. ACT 112: Negative or not required by law. Electronically signed by: Nik Bolton M.D. 09/30/2021 4:48 PM Discharge Plan Visit Data Chief Complaint: Fall ED Provider: Bairon Christianson Discharge Problem: Hypoxemia, Fall, Fracture of lumbar spine, Elevated troponin I level Patient Disposition: Admitted As Inpatient Discharge Instructions Interventions: ED Discharge Assessment Last Done: 09/30/21 21:14
[2021-09-30] MEDS ORDERED: fentaNYL citrate 100 MCG/2 ML VIAL IV STA ×2 (14:20→17:12)
[2021-09-30] MEDS ORDERED: ONDANSETRON INJ 2 MG/ML 2 ML VIAL IV STA (14:20)
--- NOTE | 2021-09-30 14:40 | XRay Report ---
XR chest 1V portable CLINICAL HISTORY: weakness COMPARISON STUDY: Chest radiograph August 06, 2021. FINDINGS: Elevation of the right hemidiaphragm is increased since prior exam. Mild asymmetric right l gilbert opacity is present. Left lung is clear. Right axillary/breast surgical clips are noted. Mild card iomegaly is noted without evidence for pulmonary edema. IMPRESSION: 1. Asymmetric mild right lung airspace opacity. This could reflect an infectious process. Radiographi c follow-up is recommended. 2. Increase in elevation of the right hemidiaphragm. ACT 112: Negative or not required by law. Electronically signed by: Nik Bolton M.D. 09/30/2021 2:39 PM
[2021-09-30 14:46] LABS: Basophils # (auto) 0.02 K/uL (0-0.2); Basophils % (auto) 0.2 %; Eosinophils # (auto) 0.13 K/uL (0-0.5); Hematocrit (blood only) 35.8 % (37-47); Hemoglobin 11.4 g/dL (12.0-16.0); Immature Granulocytes # (auto) 0.03 K/uL (0.00-0.02); Immature Granulocytes % (auto) 0.2 %; Lymphocytes # (auto) 0.87 K/uL (1.2-3.4); Lymphocytes % (auto) 6.8 %; Mean Corpuscular Hemoglobin 28.6 pg (25-34); Mean Corpuscular Hgb Conc 31.8 g/dL (32-36); Mean Corpuscular Volume 89.9 fL (80-100); Mean Platelet Volume 10.2 fL (7.4-10.4); Monocytes # (auto) 1.04 K/uL (0.11-0.59); Monocytes % (auto) 8.1 %; Neutrophils # (auto) 10.79 K/uL (1.4-6.5); Neutrophils % (auto) 83.7 %; Platelet Count 183 K/uL (130-400); RDW Coefficient of Variation 13.6 % (11.5-14.5); RDW Standard Deviation 44.7 fL (36.4-46.3); Red Blood Count 3.98 M/uL (4.2-5.4); White Blood Count 12.88 K/uL (4.8-10.8)
[2021-09-30 15:10] LABS: Albumin Globulin Ratio 1.5 (0.9-2); Albumin Level 3.8 gm/dl (3.4-5.0); BUN Creatinine Ratio 28.8 (10-20); Bilirubin,Total 0.9 mg/dl (0.2-1.0); Calcium 8.5 mg/dl (8.5-10.1); Creatinine Clr Calc Pharmacy 94.3 ml/min; Est GFR (African American) 108.3 ml/min; Est GFR (Non-African American) 93.5 ml/min; Globulin 2.6 gm/dl (2.5-4.0); Potassium 3.7 mmol/L (3.5-5.1); Total Protein 6.4 gm/dl (6.0-8.3)
[2021-09-30] MEDS ORDERED: AZITHROMYCIN 500 MG in DEXTROSE 5% 250 ML IV ONE (15:25)
[2021-09-30] MEDS ORDERED: cefTRIAXone SODIUM 2,000 MG/70 ML BAG IV STA (15:25)
[2021-09-30 15:30] LABS: Troponin I 0.23 ng/ml (0-0.04)
[2021-09-30] MEDS ORDERED: OPTIRAY 320 125ml IV ONE (16:24)
--- NOTE | 2021-09-30 16:33 | CT Scan Report ---
LUMBAR SPINE CT CT DOSE: 990.43 mGy.cm HISTORY: Low back pain s/p fall TECHNIQUE: Multiaxial CT images of the lumbar spine were performed and reformatted in the sagittal an d coronal plane without the use of contrast. A dose lowering technique was utilized adhering to the principles of ALARA. COMPARISON: None. FINDINGS: Mild levoscoliosis within the lower lumbar spine. The L3-L5 vertebral bodies and facets are fused. Prior posterior decompression from L3 through L5. There is an acute nondisplaced horizontal f racture through the L5 vertebral body. No significant loss of height. This does not extend to the pos terior elements. Severe disc space narrowing at L2-L3. Moderate facet degenerative changes within the lumbar spine. Mild sclerosis at the S1 level may be due to a healed insufficiency fracture. This santa s not appear to be acute. IMPRESSION: 1. An acute nondisplaced horizontal fracture of the L5 vertebral body. No significant loss of height. This is not extend to the posterior elements. 2.. The changes as described above. 3. The L3-L5 vertebral bodies and facets are fused. 4. Mild sclerosis at the S1 level may be due to an old healed insufficiency fracture. The sternoclavi cular ACT 112: Negative or not required by law. Electronically signed by: Jean Colón M.D. 09/30/2021 4:32 PM
--- NOTE | 2021-09-30 16:50 | CT Scan Report ---
CT ANGIOGRAPHY OF THE CHEST, PULMONARY EMBOLUS PROTOCOL CLINICAL HISTORY: +trop, O2 requirement. Evaluate for pulmonary embolus. COMPARISON STUDY: Chest radiograph August 06, 2021 and September 30, 2021. TECHNIQUE: Following IV administration of 110 mL of Optiray, helical axial images of the chest were o btained utilizing the pulmonary embolus protocol. Maximal intensity projections and sagittal and cor onal reformats were viewed on an independent 3D workstation. IV contrast was administered without co mplication. Automated exposure control was utilized for the study. A dose lowering technique was ut ilized adhering to the principles of ALARA. FINDINGS: No pulmonary emboli are identified although the lower lobe pulmonary arteries are suboptim ally assessed due to respiratory motion. There is no thoracic aortic dissection. Moderate cardiomegal y is noted. There is no pericardial effusion. Right heart chambers are dilated. Interventricular sept um is straightened. Caliber of the central pulmonary arteries is at the upper limits of normal. Inter lobular septal thickening is slightly greater within the right lung. Subpleural groundglass and linea r opacities represent atelectasis. There is no consolidation to suggest pneumonia. No pneumothorax or pleural effusion is noted. Postoperative findings within the right breast and right axilla are prese nt. No acute fractures are identified within visualized portions of the bony thorax. IMPRESSION: 1. No pulmonary emboli identified although lower lobe segmental and subsegmental pulmonary arteries s uboptimally assessed due to respiratory motion. 2. Interstitial pulmonary edema. 3. Dilated right heart chambers with straightening of the interventricular septum. The findings raise the possibility of elevated right heart pressures/pulmonary arterial hypertension. Moderate coronary artery calcification, particularly within the LAD. 4. Linear and groundglass opacities suggestive of atelectasis. ACT 112: Negative or not required by law. Electronically signed by: Nik Bolton M.D. 09/30/2021 4:48 PM
[2021-09-30] MEDS ORDERED: ASPIRIN CHEW 324 MG PO STA (17:02)
--- NOTE | 2021-09-30 17:39 | History & Physical Report ---
Date of Service September 30, 2021 Assessment & Plan (1) Lumbar compression fracture: Plan: Acetaminophen 1g PO TID Avoid NSAIDs due to history of recurrent strokes and Oxycodone 5-10mg PO Q4H PRN for breakthrough pain TLSO brace while sitting and standing Consult ortho spine (2) Bilateral leg pain: Plan: Suspect most likely secondary to her back, exacerbated by recent fall but no new cauda equina suspected. US arterial doppler to r/o PAD as a cause Otherwise continue Cymbalta and other pain medication as above (3) Hypoxia: Plan: Suspect secondary to pulmonary edema +/- PNA below Aim O2 sats > 94%, wean as able (4) Pulmonary edema: Plan: Lasix 20mg IV now TTE to assess for cardiomyopathy despite recently taken there has been an acute change in her clinical state Daily weight Strict I&Os (5) Elevated troponin: Plan: No chest pain or shortness of breath to suggest ACS Will trend troponins overnight (6) Bacterial pneumonia: Plan: Chills last night, WBC elevated. Continue ceftriaxone and azithromycin. (7) History of multiple strokes: Plan: Continue clopidogrel and atorvastatin (8) Anxiety and depression: Plan: Continue duloxetine (9) Acid reflux: Plan: Continue pantoprazole (10) Insomnia: Plan: Discussed nursing home risks to continued diphenhydramine use - including increased risk of falls. She wishes to continue this during her hospital stay Plan: VTE Prophylaxis - Lovenox 40mg SQ daily Diet - heart healthy, fluid restrict 1500ml Disposition - observation status to med/tele Admission and Anticipated Discharge Date Admission Date: Sep 30, 2021 History of Present Illness Chief Complaint: Back pain Primary Care Provider: LOYD Galvan Magui Meza is a 76 year old female who presents to the ER via EMS from home due to back pain. She fell on and has been having significant back pain radiating down both legs since. She reports falling due to her right knee giving way. This happens occasionally without pain. She reports an extensive history of back surgery previously performed in [place]. Her feels she is no longer able to cope with her at home as she is no longer able to move around. He reports worsening balance due to recurrent strokes/TIAs. Her called EMS and on arrival her O2 sats on room air was noted to be in the low 80s and now maintaining O2 sats on 4LPM O2. She denies any chest pain, fever, upper respiratory symptoms. She does note having chills last night. She reports chronic pain and numbness radiating down both legs but has been much worse after this recent fall. In the ER CXR was concerning for right sided pneumonia and she was treated with ceftriaxone and azithromycin, troponin elevated 0.23 but without EKG changes, shortness of breath or chest pain, CTA concerning for pulmonary edema and findings consistent with elevated right heart pressures. Of note she recently had echocardiogram in August for syncope workup which was unremarkable. Lumbar spine CT confirmed L5 nondisplaced horizontal fracture which is at the site of her pain. She was referred to medicine for admission and ongoing management of elevated troponin, hypoxia and acute lumbar spine fracture. Allergies Allergy/AdvReac Type Severity Reaction Status Date / Time No Known Drug Allergies Allergy Unknown . Verified 09/30/21 17:32 Adhesive Tape Allergy Unknown Unknown Uncoded 09/30/21 17:32 Home Medications Medication Instructions Recorded Confirmed Type clopidogrel 75 mg tablet 75 mg PO QAM #30 tab 09/18/18 09/30/21 Rx cyanocobalamin (vitamin B-12) 1,000 mcg PO QAM 12/14/18 09/30/21 History 1,000 mcg tablet (Vitamin B-12) atorvastatin 80 mg tablet 80 mg PO QAM 03/06/19 09/30/21 History pantoprazole 40 mg tablet,delayed 40 mg PO QAM 03/06/19 09/30/21 History release duloxetine 30 mg capsule,delayed 30 mg PO BID 07/31/20 09/30/21 History release ibandronate 150 mg tablet 150 mg PO MONTHLY 07/31/20 09/30/21 History lisinopril 10 mg tablet 10 mg PO HS #30 tab 07/31/20 09/30/21 Rx potassium chloride 20 mEq 20 meq PO QAM 07/31/20 09/30/21 History tablet,extended release(part/cryst) calcium carbonate 600 mg-vitamin 1 tab PO QAM 08/06/21 09/30/21 History D3 20 mcg (800 unit) tablet (Caltrate with Vitamin D3) diphenhydramine 25 2 tab PO HS 08/06/21 09/30/21 History mg-acetaminophen 500 mg tablet (Tylenol PM Extra Strength) Lactobacillus acidophilus 10 10,000 mmu cells PO DAILY 09/30/21 09/30/21 History billion cell capsule (Probiotic) hydrocodone 5 mg-acetaminophen 325 1 tab PO UD PRN 09/30/21 09/30/21 History mg tablet Past Med/Surg History Medical History Acid reflux Anxiety Aphasia H/O FROM STROKE 09/2018. Breast cancer 2000. RIGHT LUMPECTOMY. Chronic back pain Closed fracture of right distal tibia Constipation reason for scheduled colonoscopy Degenerative disc disease Depression Deviated septum Fracture of greater trochanter of right femur High cholesterol Hypertension On anticoagulant therapy Osteoarthritis Peptic ulcer disease H/O BLEEDING ULCERS Right leg pain Stroke SEPTEMBER 17, 2018. TREATED AT [facility]. FOLLOWED WITH DR HOLT. SHORT TERM MEMORY DIFFICULTIES, reason for plavix Stroke-like symptoms 09/2018 Transient ischemic attack (TIA) H/O. LAST EPISODE WAS OCTOBER 2017 Surgical History Fusion of spine LUMBAR H/O: hysterectomy History of ankle surgery History of arthroscopy BILATERAL KNEE ARTHROSCOPY History of back surgery (7 TOTAL) History of carpal tunnel release BILATERAL History of cataract surgery BILATERAL History of colonoscopy History of discectomy LUMBAR x4 History of esophagogastroduodenoscopy (EGD) History of open reduction and internal fixation (ORIF) procedure right ankle fx---hardware in place History of right hip replacement Hx of lumpectomy RIGHT Status post ORIF of fracture of ankle Family History Brother Stroke Mother , age 80 of heart issues. Coronary heart disease [place] Father , age 36 in a motor vehicle accident No problems noted. Other No family history of adverse response to anesthesia Social History Smoking Status: Never smoker Second Hand Exposure: No; Hx Alcohol Use: No Hx Substance Use: Yes Preferred Language: Turkmen Communication Ability: Effective Visual Impairment: No Limitations Writing Manager Required: No Beliefs That Will Affect Care: None marital status: Current Living Situation: Spouse current occupational status: previously employed How many Children do You have: 0 Other Information That Helps Us Care for You: No Feels Safe at Home: Yes Safety Concerns: Feels Safe At This Time Assistive Devices: Oxygen - Continuous and Walker Review of Systems Review of Systems: All systems reviewed & are unremarkable except as noted in HPI & below Physical Exam Constitutional: WD/WN, vitals as above Eyes: + anicteric sclerae; normal pupil size ENMT: external ear and nose normal, oropharynx normal Neck: trachea midline, no thyromegaly Respiratory: normal respiratory effort, lungs clear to auscultation Cardiovascular: Rate/Rhythm: regular rate and regular rhythm Heart Sounds: normal S1 and normal S2; no murmur Extremities: normal capillary refill; no calf tenderness and no pedal edema Gastrointestinal (Abdomen): normal bowel sounds, soft, nontender, no hepatosplenomegaly Musculoskeletal: no cyanosis or clubbing, extremities motor strength 5/5 Skin: no rashes, warm and dry Neurologic: moves all extremities and awake; no focal motor deficits (full power in b/l LE 5/5) and not confused Psychiatric: A+Ox3, euthymic affect Results & Data Results & Data ([facility]) Vital Signs (Past 12 Hours) Vital Signs Temp Pulse Pulse Resp BP BP Pulse Ox 09/30/21 17:00 92 H 20 118/72 93 09/30/21 15:18 95 H 20 116/70 93 09/30/21 14:40 96 H 20 94 09/30/21 14:01 96 H 16 93 09/30/21 14:00 122/86 09/30/21 13:54 37.1 C 103 H 103 H 20 122/79 122/79 86 L Laboratory Results Abnormal lab results 09/30/21 09/30/21 Range/Units 14:35 14:35 WBC 12.88 H (4.8-10.8) K/uL RBC 3.98 L (4.2-5.4) M/uL Hgb 11.4 L (12.0-16.0) g/dL Hct 35.8 L (37-47) % MCHC 31.8 L (32-36) g/dL Neut # (Auto) 10.79 H (1.4-6.5) K/uL Lymph # (Auto) 0.87 L (1.2-3.4) K/uL [place] # (Auto) 1.04 H (0.11-0.59) K/uL Immature Gran # (Auto) 0.03 H (0.00-0.02) K/uL Creatinine 0.52 L (0.6-1.2) mg/dl BUN/Creatinine Ratio 28.8 H (10-20) Glucose 110 H (70-99(Fasting)) mg/dl Troponin I 0.23 H* (0-0.04) ng/ml Diagnostic Findings XR chest 1V portable CLINICAL HISTORY: weakness COMPARISON STUDY: Chest radiograph August 06, 2021. FINDINGS: Elevation of the right hemidiaphragm is increased since prior exam. Mild asymmetric right lung opacity is present. Left lung is clear. Right axillary/breast surgical clips are noted. Mild cardiomegaly is noted without evidence for pulmonary edema. IMPRESSION: 1. Asymmetric mild right lung airspace opacity. This could reflect an infectious process. Radiographic follow-up is recommended. 2. Increase in elevation of the right hemidiaphragm. CT ANGIOGRAPHY OF THE CHEST, PULMONARY EMBOLUS PROTOCOL CLINICAL HISTORY: +trop, O2 requirement. Evaluate for pulmonary embolus. COMPARISON STUDY: Chest radiograph August 06, 2021 and September 30, 2021. TECHNIQUE: Following IV administration of 110 mL of Optiray, helical axial images of the chest were obtained utilizing the pulmonary embolus protocol. Maximal intensity projections and sagittal and coronal reformats were viewed on an independent 3D workstation. IV contrast was administered without complication. Automated exposure control was utilized for the study. A dose lowering technique was utilized adhering to the principles of ALARA. FINDINGS: No pulmonary emboli are identified although the lower lobe pulmonary arteries are suboptimally assessed due to respiratory motion. There is no thoracic aortic dissection. Moderate cardiomegaly is noted. There is no pericardial effusion. Right heart chambers are dilated. Interventricular septum is straightened. Caliber of the central pulmonary arteries is at the upper limits of normal. Interlobular septal thickening is slightly greater within the right lung. Subpleural groundglass and linear opacities represent atelectasis. There is no consolidation to suggest pneumonia. No pneumothorax or pleural effusion is noted. Postoperative findings within the right breast and right axilla are present. No acute fractures are identified within visualized portions of the bony thorax. IMPRESSION: 1. No pulmonary emboli identified although lower lobe segmental and subsegmental pulmonary arteries suboptimally assessed due to respiratory motion. 2. Interstitial pulmonary edema. 3. Dilated right heart chambers with straightening of the interventricular septum. The findings raise the possibility of elevated right heart pressures/pulmonary arterial hypertension. Moderate coronary artery calcification, particularly within the LAD. 4. Linear and groundglass opacities suggestive of atelectasis. LUMBAR SPINE CT CT DOSE: 990.43 mGy.cm HISTORY: Low back pain s/p fall TECHNIQUE: Multiaxial CT images of the lumbar spine were performed and reformatted in the sagittal and coronal plane without the use of contrast. A dose lowering technique was utilized adhering to the principles of ALARA. COMPARISON: None. FINDINGS: Mild levoscoliosis within the lower lumbar spine. The L3-L5 vertebral bodies and facets are fused. Prior posterior decompression from L3 through L5. There is an acute nondisplaced horizontal fracture through the L5 vertebral body. No significant loss of height. This does not extend to the posterior elements. Severe disc space narrowing at L2-L3. Moderate facet degenerative changes within the lumbar spine. Mild sclerosis at the S1 level may be due to a healed insufficiency fracture. This does not appear to be acute. IMPRESSION: 1. An acute nondisplaced horizontal fracture of the L5 vertebral body. No significant loss of height. This is not extend to the posterior elements. 2.. The changes as described above. 3. The L3-L5 vertebral bodies and facets are fused. 4. Mild sclerosis at the S1 level may be due to an old healed insufficiency fracture. The sternoclavicular Medications Administered ER Medications Given: Ondansetron 4mg IV Fentanyl 25 mcg IV Ceftriaxone 2000mg IV Azithromycin 500mg IV ASA 324mg PO Fentanyl 25 mcg IV ECG Indication: other (elevated troponin) Rate (beats per minute): 100 Rhythm: normal sinus Findings: + other (T wave flattening laterally and inferiorly) and + PVC Comparison ECG Date: from (Aug 06, 2021) Change: no significant change Code Status & VTE Plan Code Status DNR/DNI per patient wishes VTE Prophylaxis Plan VTE Prophylaxis will be ordered: Yes PG Care Time/CCT Total # of Minutes Spent Total Time Spent with Patient: Total time spent is greater than 50% in coordination of care (as documented) at patient's floor/unit and/or counseling patient: Coding Level of Care Code INT OBSERVATION CARE 70M LVL 3 Diagnoses Lumbar compression fracture S32.000A Elevated troponin R77.8 Bacterial pneumonia J15.9 Bilateral leg pain M79.604; M79.605 History of multiple strokes Z86.73 Anxiety and depression F41.9; F32.9 Acid reflux K21.9 Insomnia G47.00 Pulmonary edema J81.1 Hypoxia R09.02
[2021-09-30] MEDS ORDERED: FUROSEMIDE INJ 20 MG/2 ML VIAL IV STA (18:56)
[2021-09-30] MEDS ORDERED: lisinopril 10 MG TAB PO SCH (22:05)
[2021-09-30] MEDS ORDERED: NON-FORMULARY MEDICATION (Diphenhydramine-Acetaminophen [Tylenol Pm Extra Strength] 25-500 PO SCH (22:05)
[2021-09-30] MEDS ORDERED: ACETAMINOPHEN 500 MG TAB PO SCH (22:10)
[2021-09-30] MEDS: ACETAMINOPHEN 500 MG TAB PO SCH (23:01)
[2021-09-30] MEDS: DULoxetine HCL 30 MG CAP PO SCH (23:01)
[2021-09-30] MEDS: diphenhydrAMINE Capsule 25 MG CAP PO SCH (23:01)
[2021-09-30] MEDS: MELATONIN 3 MG TAB PO PRN (23:03)
[2021-10-01 03:54] LABS: Basophils # (auto) 0.02 K/uL (0-0.2); Basophils % (auto) 0.2 %; Eosinophils # (auto) 0.36 K/uL (0-0.5); Hemoglobin 10.4 g/dL (12.0-16.0); Immature Granulocytes # (auto) 0.02 K/uL (0.00-0.02); Immature Granulocytes % (auto) 0.2 %; Lymphocytes # (auto) 1.82 K/uL (1.2-3.4); Lymphocytes % (auto) 20.2 %; Mean Corpuscular Hemoglobin 28.5 pg (25-34); Mean Corpuscular Hgb Conc 31.5 g/dL (32-36); Mean Corpuscular Volume 90.4 fL (80-100); Mean Platelet Volume 9.8 fL (7.4-10.4); Neutrophils # (auto) 5.91 K/uL (1.4-6.5); Neutrophils % (auto) 65.4 %; Platelet Count 155 K/uL (130-400); RDW Coefficient of Variation 13.7 % (11.5-14.5); RDW Standard Deviation 45.5 fL (36.4-46.3); Red Blood Count 3.65 M/uL (4.2-5.4); White Blood Count 9.03 K/uL (4.8-10.8)
[2021-10-01 04:14] LABS: C Reactive Protein 11.57 mg/dl (0-0.5); Calcium 8.1 mg/dl (8.5-10.1); Creatinine Clr Calc Pharmacy 87.6 ml/min; Est GFR (African American) 105.7 ml/min; Est GFR (Non-African American) 91.2 ml/min; Potassium 3.5 mmol/L (3.5-5.1)
[2021-10-01] MEDS: DULoxetine HCL 30 MG CAP PO SCH ×2 (07:50→20:12)
[2021-10-01] MEDS: ACETAMINOPHEN 500 MG TAB PO SCH ×3 (07:50→20:12)
[2021-10-01] MEDS: PANTOprazole 40 MG TAB PO SCH (07:51)
[2021-10-01] MEDS: AZITHROMYCIN 250 MG TAB PO SCH (07:51)
[2021-10-01] MEDS: CYANOCOBALAMIN (B-12) 500 MCG TABLET PO SCH (07:51)
[2021-10-01] MEDS: POTASSIUM CHLORIDE CRTAB 20 MEQ TABCR PO SCH (07:51)
[2021-10-01] MEDS: ATORVASTATIN 40 MG TAB PO SCH (07:51)
[2021-10-01] MEDS: CLOPIDOGREL BISULFATE 75 MG TAB PO SCH (07:51)
[2021-10-01] MEDS: ENOXAPARIN INJ 40 MG/0.4 ML SYR SQ SCH (07:53)
[2021-10-01] MEDS ORDERED: ADVANCED PROBIOTIC 1250 MG CAPSULE PO SCH (09:00)
--- NOTE | 2021-10-01 11:06 | Orthopedic Consultation ---
Date of Consultation October 01, 2021 Assessment & Plan (1) Fracture of lumbar spine: Assessment L5 compression fracture. Plan at this time patient has significant history of lumbar back surgeries and appears to have a fusion from L3-L5. She has solid fusion mass all compressing across the L5 vertebral body. This does set her up for advanced collapse and instability at this level. I would like to obtain an MRI of lumbar spine for further detailed anatomy and also to assess neural structures. Ultimately she may require surgical stabilization ideally in the form of a kyphoplasty versus more invasive procedure with an instrumented fusion. We will make further conditions upon review of updated imaging. History of Present Illness Reason for Consultation: Back pain Attending Physician: Chayo Villanueva MD History of Present Illness This is a 76-year-old female that presents with worsening incapacitating back pain secondary to a fall that occurred last . Describes pain across lumbar spine. She does describe a history of peripheral neuropathy that has been present for several years. She denies any weakness to her legs at this time. Denies any numbness tingling at this time. Does state that her ability to take care of herself has been markedly compromised secondary to the fall and L5 fracture. Allergies Allergy/AdvReac Type Severity Reaction Status Date / Time No Known Drug Allergies Allergy Unknown . Verified 09/30/21 17:32 Adhesive Tape Allergy Unknown Unknown Uncoded 09/30/21 17:32 Home Medications Medication Instructions Recorded Confirmed Type clopidogrel 75 mg tablet 75 mg PO QAM #30 tab 09/18/18 09/30/21 Rx cyanocobalamin (vitamin B-12) 1,000 mcg PO QAM 12/14/18 09/30/21 History 1,000 mcg tablet (Vitamin B-12) atorvastatin 80 mg tablet 80 mg PO QAM 03/06/19 09/30/21 History pantoprazole 40 mg tablet,delayed 40 mg PO QAM 03/06/19 09/30/21 History release duloxetine 30 mg capsule,delayed 30 mg PO BID 07/31/20 09/30/21 History release ibandronate 150 mg tablet 150 mg PO MONTHLY 07/31/20 09/30/21 History lisinopril 10 mg tablet 10 mg PO HS #30 tab 07/31/20 09/30/21 Rx potassium chloride 20 mEq 20 meq PO QAM 07/31/20 09/30/21 History tablet,extended release(part/cryst) calcium carbonate 600 mg-vitamin 1 tab PO QAM 08/06/21 09/30/21 History D3 20 mcg (800 unit) tablet (Caltrate with Vitamin D3) diphenhydramine 25 2 tab PO HS 08/06/21 09/30/21 History mg-acetaminophen 500 mg tablet (Tylenol PM Extra Strength) Lactobacillus acidophilus 10 10,000 mmu cells PO DAILY 09/30/21 09/30/21 History billion cell capsule (Probiotic) hydrocodone 5 mg-acetaminophen 325 1 tab PO UD PRN 09/30/21 09/30/21 History mg tablet Patient History Medical History Acid reflux Anxiety Aphasia H/O FROM STROKE 09/2018. Breast cancer 2000. RIGHT LUMPECTOMY. Chronic back pain Closed fracture of right distal tibia Constipation reason for scheduled colonoscopy Degenerative disc disease Depression Deviated septum Fracture of greater trochanter of right femur H/O: stroke High cholesterol Hypertension On anticoagulant therapy Osteoarthritis Peptic ulcer disease H/O BLEEDING ULCERS Right leg pain Stroke SEPTEMBER 17, 2018. TREATED AT [facility]. FOLLOWED WITH DR HOLT. SHORT TERM MEMORY DIFFICULTIES, reason for plavix Stroke-like symptoms 09/2018 Transient ischemic attack (TIA) H/O. LAST EPISODE WAS OCTOBER 2017 Surgical History Fusion of spine LUMBAR H/O: hysterectomy History of ankle surgery History of arthroscopy BILATERAL KNEE ARTHROSCOPY History of back surgery (7 TOTAL) History of carpal tunnel release BILATERAL History of cataract surgery BILATERAL History of colonoscopy History of discectomy LUMBAR x4 History of esophagogastroduodenoscopy (EGD) History of open reduction and internal fixation (ORIF) procedure right ankle fx---hardware in place Hx of lumpectomy RIGHT Status post ORIF of fracture of ankle Family History Brother Stroke Mother , age 80 of heart issues. Coronary heart disease [place] Father , age 36 in a motor vehicle accident No problems noted. Other No family history of adverse response to anesthesia Social History Smoking Status: Never smoker Second Hand Exposure: No; Hx Alcohol Use: No Hx Substance Use: Yes Preferred Language: Lao Communication Ability: Effective Visual Impairment: No Limitations Manager Treasury Required: No Beliefs That Will Affect Care: None marital status: Current Living Situation: Spouse current occupational status: previously employed How many Children do You have: 0 Other Information That Helps Us Care for You: No Feels Safe at Home: Yes Safety Concerns: Feels Safe At This Time Assistive Devices: Walker Physical Exam Physical Exam: Exam she is alert and oriented very cooperative. She exhibits +5-5 plantar flexion dorsiflexion quadriceps. Sensory appears to be symmetric and intact. Results & Data ([facility]) Vital Signs (Past 12 Hours) Vital Signs Temp Pulse Pulse Resp BP BP Pulse Ox 10/01/21 07:57 95 10/01/21 07:42 36.7 C 77 19 118/74 96 10/01/21 04:13 36.9 C 76 20 118/75 96 10/01/21 01:48 85 (1) Fracture of lumbar spine Encounter type: initial encounter Fracture morphology: unspecified fracture morphology Fracture type: closed Lumbar vertebra fracture level: L5 Qualified Code(s): S32.059A - Unspecified fracture of fifth lumbar vertebra, initial encounter for closed fracture
--- NOTE | 2021-10-01 12:12 | XCELERA ---
[id number]
--- NOTE | 2021-10-01 12:43 | Electrocardiogram Report ---
Test Reason : Blood Pressure : / mmHG Vent. Rate : 100 BPM Atrial Rate : 100 BPM P-R Int : 194 ms QRS Dur : 082 ms QT Int : 310 ms P-R-T Axes : 049 -15 099 degrees QTc Int : 399 ms Poor data quality, interpretation may be adversely affected Sinus rhythm with occasional Premature ventricular complexes T wave abnormality, consider lateral ischemia Abnormal ECG When compared with ECG of 06-AUG-2021 11:05, Nonspecific T wave abnormality, worse in Anterior leads Confirmed by Spenser Arceo ([id number]) on 10/01/2021 12:43:08 PM Referred By: REFERRED SELF Confirmed By:Spenser Arceo
--- NOTE | 2021-10-01 12:50 | Ultrasound Report ---
US arterial duplex LE BI CLINICAL HISTORY: b/l leg pain on exertion r/o PAD. Claudication. COMPARISON STUDY: None. FINDINGS: Bilateral ankle brachial indices measure between 1.3 and 1.4. There is diffuse calcified pl aque seen throughout the bilateral lower extremity arterial systems. No high-grade stenosis identifie d. Flow within the proximal left posterior tibial artery is not well visualized and may be due to the heavily calcified plaque at this location. Otherwise, no areas of arterial occlusion identified with in the bilateral lower extremity arterial systems. Remaining bilateral lower extremity arterial syste ms demonstrate normal velocities and biphasic to triphasic waveforms. IMPRESSION: 1. Evaluation for flow within the proximal left posterior tibial artery is not well visualized and ma y be due to the heavily calcified plaque at this location. 2. Otherwise, no significant stenosis or occlusion within the bilateral lower extremity arterial syst ems. 3. Diffuse calcified plaque seen throughout the bilateral lower extremities. ACT 112: Negative or not required by law. Electronically signed by: Jean Colón M.D. 10/01/2021 12:48 PM
--- NOTE | 2021-10-01 15:23 | Hospitalist Progress Note ---
Date of Service October 01, 2021 Assessment & Plan (1) Lumbar compression fracture: Plan: WIth a h/o 7 prior lumbar spine surgeries, now with fall and fracture Acetaminophen 1g PO TID Avoid NSAIDs due to history of recurrent strokes Oxycodone 5-10mg PO Q4H PRN for breakthrough pain TLSO brace while sitting and standing Consult ortho spine-recommends MRI-pending (2) Bilateral leg pain: Plan: Suspect most likely secondary to her back-has been chronic for many months at least she thinks, exacerbated by recent fall but no new cauda equina suspected. US arterial doppler to r/o PAD-negative except slow flow in Left post tibial artery Otherwise continue Cymbalta and other pain medication as above await Spine recs (3) Hypoxia: Plan: Suspect secondary to pulmonary edema +/- PNA below Aim O2 sats > 94%, wean as able (4) Pulmonary edema: Plan: Lasix 20mg IV x 1 given on admission TTE to assess for cardiomyopathy despite recently taken there has been an acute change in her clinical state--> normal Daily weight Strict I&Os continue to treat for PNA (5) Elevated troponin: Plan: No chest pain or shortness of breath to suggest ACS troponin 0.2 and then trended downward, no ischemic changes on ECG, no CP ECHO no WMAs this is myocardial demand ischemia (6) Bacterial pneumonia: Plan: Chills prior to admission, no fevers, no cough, WBC elevated. CXR with atelectasis vs interstitial thickening COVID negative leukocytosis now resolved Continue ceftriaxone and azithromycin x 5 day course has a h/o C. diff so will add probiotics (7) History of multiple strokes: Plan: bilateral cerebellar and basal ganglia strokes occurred perioperatively after hip fracture in 2018. Then with TIA and expressive aphasia in 2021. Has PFO, HOlter monitor x 30 days negative for occult Afib in early 2021 Continue clopidogrel and atorvastatin if needs Spine surgery, would have to hold Plavix most likely (8) Anxiety and depression: Plan: Continue duloxetine (9) Acid reflux: Plan: Continue pantoprazole (10) Insomnia: Plan: Discussed fpc risks to continued diphenhydramine use - including increased risk of falls. She wishes to continue this during her hospital stay and she used to be on Ambien which was discontinued by PCP Plan: VTE Prophylaxis - Lovenox 40mg SQ daily Diet - heart healthy, fluid restrict 1500ml Disposition - observation status to med/tele, continued stay to await MRI Admission and Anticipated Discharge Date Admission Date: September 30, 2021 Subjective Pain still in lower back and down legs mostly in middle of the night. SHe has not yet been out of bed. Fearful of having MRI but asked if could go with her and I arranged this. Discussed care with Dr. Suzanne Dominguez CP, SOB, cough, abd pain, nausea. Did endorse sweats/chills prior to admission which have now resolved. Remains on O2 but probably could be weaned off Tele with NSR, rates 70-80s Review of Systems Review of Systems: All systems reviewed & are unremarkable except as noted in HPI & below Physical Exam Constitutional: WD/WN, vitals as above Eyes: PERRL, conjunctivae normal, anicteric sclerae ENMT: external ear and nose normal, oropharynx normal Neck: trachea midline, no thyromegaly Respiratory: normal respiratory effort, lungs clear to auscultation Cardiovascular: RRR, no murmur, no edema Chest (Breasts): Chest: normal inspection of chest Gastrointestinal (Abdomen): normal bowel sounds, soft, nontender, no hepatosplenomegaly Musculoskeletal: Extremities: extremities normal to inspection; no cyanosis and no clubbing Skin: no rashes, warm and dry Neurologic: moves all extremities and awake; no focal motor deficits neg straight leg raise Psychiatric: A+Ox3, euthymic affect (a little forgetful for short term) Lymphatic: no lymphedema Results & Data Results & Data ([facility]) Vital Signs (Past 12 Hours) Vital Signs Temp Pulse Resp BP BP Pulse Ox 10/01/21 11:12 36.5 C 80 21 117/72 96 10/01/21 07:57 95 10/01/21 07:42 36.7 C 77 19 118/74 96 10/01/21 04:13 36.9 C 76 20 118/75 96 Laboratory Results labs reviewed PG Care Time/CCT Total # of Minutes Spent Total Time Spent with Patient: Total time spent is greater than 50% in coordination of care (as documented) at patient's floor/unit and/or counseling patient: Coding Level of Care Code 99295 Subseq Obs Care Lvl 2 Diagnoses Lumbar compression fracture S32.000A Bilateral leg pain M79.604; M79.605 Hypoxia R09.02 Pulmonary edema J81.1 Elevated troponin R77.8 Bacterial pneumonia J15.9 History of multiple strokes Z86.73 Anxiety and depression F41.9; F32.9 Acid reflux K21.9 Insomnia G47.00
[2021-10-01] MEDS: cefTRIAXone SODIUM 1,000 MG in DEXTROSE 5% 50 ML IV SCH (17:06)
--- NOTE | 2021-10-01 17:14 | Magnetic Resonance Report ---
MRI OF THE LUMBAR SPINE WITHOUT CONTRAST CLINICAL HISTORY: Back pain. Recent fall. Previous surgery. COMPARISON STUDY: Lumbar spine CT September 30, 2021. TECHNIQUE: Utilizing a 1.5 Rosetta magnet and dedicated coil, multiplanar, multiecho imaging of the [facility] spine was performed without IV contrast. FINDINGS: For purposes of numbering on this exam, the L5-S1 disc space is assigned to axial image 28 of 31. Mil d levoscoliosis of the lumbar spine is present. L3-L5 posterior decompression and fusion is noted. Th ere is an acute horizontal fracture which extends through the superior endplate of L5, anterior krystyna x of L5, the L4-L5 intervertebral disc as well as the inferior endplate of L4. The fracture extends i nto the bilateral pedicles, right greater than left. In addition, there is posterior paraspinal spina l edema at the L5 level. This represents a horizontal acute 3 column fracture. There is no significan t vertebral body height loss and no retropulsion. No additional acute fractures are present. There is no suspicious marrow replacement. L1-2: Disc bulge is noted with ligamentous hypertrophy facet arthrosis. There is mild to moderate magalie rowing of the central canal, lateral recesses and neural foramen. L2-3: There is marked disc space narrowing. There is facet arthrosis. There is mild to moderate narro wing of the central canal. Severe bilateral neural foraminal stenosis is present. L3-4: There is no central canal stenosis. There is mild bilateral neural foraminal stenosis L4-5: There is no central canal stenosis. Mild bilateral neural foraminal stenosis is present L5-S1: Central canal is patent. There is mild to moderate bilateral neural foraminal stenosis. IMPRESSION: 1. Acute horizontal 3 column fracture, as described above. This involves the superior endplate of L5, the L4-L5 intervertebral disc, the inferior endplate of L4 and the bilateral pedicles, right greater than left. No vertebral body height loss. No retropulsion. 2. No additional acute fractures within the lumbar spine. 3. Status post L3-L5 posterior decompression and fusion. 4. Moderate multilevel degenerative changes, as described above. ACT 112: Negative or not required by law. Electronically signed by: Nik Bolton M.D. 10/01/2021 5:13 PM
[2021-10-01] MEDS: oxyCODONE HCL IR 5 MG TAB (IMMEDIATE RELEASE) PO PRN ×2 (17:21→21:30)
[2021-10-01] MEDS: diphenhydrAMINE Capsule 25 MG CAP PO SCH (20:09)
[2021-10-01] MEDS: MELATONIN 3 MG TAB PO PRN (20:12)
[2021-10-02 08:37] LABS: Basophils # (auto) 0.03 K/uL (0-0.2); Basophils % (auto) 0.5 %; Eosinophils # (auto) 0.35 K/uL (0-0.5); Eosinophils % (auto) 5.6 %; Hemoglobin 10.9 g/dL (12.0-16.0); Immature Granulocytes # (auto) 0.01 K/uL (0.00-0.02); Immature Granulocytes % (auto) 0.2 %; Lymphocytes # (auto) 1.19 K/uL (1.2-3.4); Mean Corpuscular Hemoglobin 29.1 pg (25-34); Mean Corpuscular Hgb Conc 32.1 g/dL (32-36); Mean Corpuscular Volume 90.9 fL (80-100); Mean Platelet Volume 9.7 fL (7.4-10.4); Monocytes # (auto) 0.51 K/uL (0.11-0.59); Monocytes % (auto) 8.1 %; Neutrophils # (auto) 4.17 K/uL (1.4-6.5); Neutrophils % (auto) 66.6 %; Platelet Count 176 K/uL (130-400); RDW Coefficient of Variation 13.6 % (11.5-14.5); RDW Standard Deviation 45.5 fL (36.4-46.3); Red Blood Count 3.74 M/uL (4.2-5.4); White Blood Count 6.26 K/uL (4.8-10.8)
[2021-10-02] MEDS: CLOPIDOGREL BISULFATE 75 MG TAB PO SCH (08:43)
[2021-10-02] MEDS: ATORVASTATIN 40 MG TAB PO SCH (08:43)
[2021-10-02] MEDS: SACCHAROMYCES BOULARDII 250 MG CAP PO SCH (08:43)
[2021-10-02] MEDS: DULoxetine HCL 30 MG CAP PO SCH ×2 (08:43→20:55)
[2021-10-02] MEDS: AZITHROMYCIN 250 MG TAB PO SCH (08:43)
[2021-10-02] MEDS: POTASSIUM CHLORIDE CRTAB 20 MEQ TABCR PO SCH (08:43)
[2021-10-02] MEDS: ACETAMINOPHEN 500 MG TAB PO SCH ×3 (08:43→20:55)
[2021-10-02] MEDS: PANTOprazole 40 MG TAB PO SCH (08:44)
[2021-10-02] MEDS: CYANOCOBALAMIN (B-12) 500 MCG TABLET PO SCH (08:44)
[2021-10-02] MEDS: ENOXAPARIN INJ 40 MG/0.4 ML SYR SQ SCH (08:45)
[2021-10-02] MEDS: oxyCODONE HCL IR 5 MG TAB (IMMEDIATE RELEASE) PO PRN ×4 (08:52→20:54)
[2021-10-02 09:06] LABS: Albumin Globulin Ratio 1.4 (0.9-2); Albumin Level 3.5 gm/dl (3.4-5.0); BUN Creatinine Ratio 30.2 (10-20); Bilirubin,Total 0.5 mg/dl (0.2-1.0); C Reactive Protein 7.66 mg/dl (0-0.5); Creatinine Clr Calc Pharmacy 92.5 ml/min; Est GFR (African American) 107.6 ml/min; Est GFR (Non-African American) 92.9 ml/min; Globulin 2.5 gm/dl (2.5-4.0); Potassium 3.9 mmol/L (3.5-5.1)
--- NOTE | 2021-10-02 11:02 | Orthopedic Progress Note ---
Date of Service October 02, 2021 Assessment & Plan (1) Lumbar burst fracture: Plan: MRI does confirm my concern is the patient has a burst type fracture consistent with a bony Chance fracture. This is a very unstable 3 column injury which could could progress to significant collapse and risk of neurologic injury. I recommended that we undergo surgical stabilization involving a lumbar fusion L4- S1 with kyphoplasty of the L5 vertebral body. I discussed this with the patient hope to meet with her later today. I will make her n.p.o. after midnight and plan for possible surgery tomorrow. Admission and Anticipated Discharge Date Admission Date: October 02, 2021 Subjective Patient continues to complain of severe back pain with any motion of bed practically it with attempts to sitting up. Currently denying any radicular pain. Physical Exam Physical Exam: On exam she is alert and oriented neurologically intact. Results & Data ([facility]) Vital Signs (Past 12 Hours) Vital Signs Temp Pulse Pulse Pulse Resp BP Pulse Ox 10/02/21 10:43 36.4 C L 82 20 136/72 93 10/02/21 08:00 82 10/02/21 07:25 36.2 C L 83 18 133/76 94 10/02/21 02:32 36.6 C 81 18 136/83 96 10/02/21 00:21 81 10/01/21 23:13 36.5 C 83 18 137/81 93
[2021-10-02] MEDS: LIDOCAINE 5% 1 PATCH TD SCH (16:59)
[2021-10-02] MEDS: POLYETHYLENE (MIRALAX) 17 GM PACK PO SCH (18:20)
[2021-10-02] MEDS ORDERED: HYDROmorphone INJ 0.5 MG/0.5 ML SYR IV PRN (18:35)
--- NOTE | 2021-10-02 18:37 | Hospitalist Progress Note ---
Date of Service October 02, 2021 Assessment & Plan (1) Lumbar burst fracture: (2) Lumbar compression fracture: Plan: WIth a h/o 7 prior lumbar spine surgeries, now with fall and burst fracture of L-spine of a column of 3 vertebrae which is highly unstable Acetaminophen 1g PO TID Avoid NSAIDs due to history of recurrent strokes continue Oxycodone 5-10mg PO Q4H PRN for breakthrough pain -add on IV dilaudid as she is having severe pain despite oxycodone -add lidocaine patch -plan now for surgery tomorrow SHe is medically optimized at this point for this urgent surgery. SHe does have a h/o perioperative CVA and delirium after anesthesia and will need to be clos unique monitored (3) Bilateral leg pain: Plan: Suspect most likely secondary to her back-has been chronic for many months at least she thinks, exacerbated by recent fall but no new cauda equina suspected. US arterial doppler to r/o PAD-negative except slow flow in Left post tibial artery Otherwise continue Cymbalta and other pain medication as above now going for spine surgery (4) Constipation: Plan: Restart home MiraLAX 34 g p.o. once daily May need more than this postoperatively in the setting of opioid use (5) Hypoxia: Plan: Suspect secondary to pulmonary edema +/- PNA below Aim O2 sats > 94%, wean as able-now weaned to room air (6) Pulmonary edema: Plan: Lasix 20mg IV x 1 given on admission TTE to assess for cardiomyopathy despite recently taken there has been an acute change in her clinical state--> normal Daily weight Strict I&Os continue to treat for PNA (7) Elevated troponin: Plan: No chest pain or shortness of breath to suggest ACS troponin 0.2 and then trended downward, no ischemic changes on ECG, no CP ECHO no WMAs this is myocardial demand ischemia (8) Bacterial pneumonia: Plan: Chills prior to admission, no fevers, no cough, WBC elevated. CXR with atelectasis vs interstitial thickening COVID negative Procalcitonin negative on 10/02 leukocytosis now resolved, weaned off oxygen Continue ceftriaxone and azithromycin x 5 day course has a h/o C. diff so added probiotics (9) History of multiple strokes: Plan: bilateral cerebellar and basal ganglia strokes occurred perioperatively after h ip fracture in 2018. These were not thought to possibly be embolic versus related to severe postoperative anemia She never had any evidence of atrial fibrillation Then with TIA and expressive aphasia in 2021. Has PFO, HOlter monitor x 30 days negative for occult Afib in early 2021 Continue clopidogrel and atorvastatin Discussed with spine surgery-we will hold Plavix starting tomorrow, but plan to restart as soon as possible after surgery (10) Anxiety and depression: Plan: Her anxiety is worsened by acute medical situation Continue duloxetine (11) Acid reflux: Plan: Continue pantoprazole (12) Insomnia: Plan: Discussed filler leaf cutter long risks to continued diphenhydramine use - including increased risk of falls. She wishes to continue this during her hospital stay and she used to be on Ambie n which was discontinued by PCP (13) Anemia: Plan: Hemoglobin mildly low but stable from previous at 10.9 Normocytic Follow CBC postoperatively B12 levels borderline low in 2019, folate normal then Continue B12 supplementation Check iron studies in the morning Plan: VTE Prophylaxis - Lovenox 40mg SQ daily-we will hold for surgery Diet-n.p.o. after midnight Disposition -admit, expect she will stay here at least 3 to 5 days postoperatively for recovery and then will need rehab Admission and Anticipated Discharge Date Admission Date: October 02, 2021 Subjective Patient is very anxious about having back surgery tomorrow. She fears that she will and frequently talks about dying. She understands that she is at high risk for unstable fracture and significant neurologic deficit if she does not have surgical repair. She is still having significant pain in the lower back and down the legs and is requesting something more than oxycodone and lidocaine patch. Telemetry with normal sinus rhythm with rates in the 80s. She denies any chest pains or shortness of breath. She was still on oxygen when I saw her but has since been weaned off oxygen to room air. Review of Systems Review of Systems: All systems reviewed & are unremarkable except as noted in HPI & below Has not moved her bowels in 3 days and usually has to take 2 doses of MiraLAX each day to have a bowel movement. Physical Exam Constitutional: WD/WN, vitals as above Eyes: + anicteric sclerae ENMT: external ear and nose normal, oropharynx normal Neck: trachea midline, no thyromegaly Respiratory: normal respiratory effort, lungs clear to auscultation Cardiovascular: RRR, no murmur, no edema Chest (Breasts): Chest: normal inspection of chest Gastrointestinal (Abdomen): normal bowel sounds, soft, nontender, no hepatosplenomegaly Musculoskeletal: Extremities: extremities normal to inspection; no cyanosis and no clubbing Skin: no rashes, warm and dry Neurologic: moves all extremities and awake; no focal motor deficits Psychiatric: A+Ox3, euthymic affect (a little forgetful for short term) Lymphatic: no lymphedema Results & Data Results & Data ([facility]) Vital Signs (Past 12 Hours) Vital Signs Temp Pulse Pulse Pulse Resp BP Pulse Ox 10/02/21 16:00 91 H 10/02/21 15:58 36.9 C 84 17 155/82 H 92 10/02/21 10:43 36.4 C L 82 20 136/72 93 10/02/21 08:00 82 10/02/21 07:25 36.2 C L 83 18 133/76 94 Laboratory Results 10/02/21 10/02/21 10/02/21 Range/Units 08:20 08:20 08:20 WBC 6.26 (4.8-10.8) K/uL RBC 3.74 L (4.2-5.4) M/uL Hgb 10.9 L (12.0-16.0) g/dL Hct 34.0 L (37-47) % MCV 90.9 (80-100) fL MCH 29.1 (25-34) pg MCHC 32.1 (32-36) g/dL RDW Std Deviation 45.5 (36.4-46.3) fL RDW Coeff of Edouard 13.6 (11.5-14.5) % Plt Count 176 (130-400) K/uL MPV 9.7 (7.4-10.4) fL Immature Gran % (Auto) 0.2 % Neut % (Auto) 66.6 % Lymph % (Auto) 19.0 % [place] % (Auto) 8.1 % Eos % (Auto) 5.6 % Baso % (Auto) 0.5 % Neut # (Auto) 4.17 (1.4-6.5) K/uL Lymph # (Auto) 1.19 L (1.2-3.4) K/uL [place] # (Auto) 0.51 (0.11-0.59) K/uL Eos # (Auto) 0.35 (0-0.5) K/uL Baso # (Auto) 0.03 (0-0.2) K/uL Immature Gran # (Auto) 0.01 (0.00-0.02) K/uL Sodium 140 (136-145) mmol/L Potassium 3.9 (3.5-5.1) mmol/L Chloride 106 (98-107) mmol/L Carbon Dioxide 28 (21-32) mmol/L Anion Gap 6 (3-11) BUN 16 (6-23) mg/dl Creatinine 0.53 L (0.6-1.2) mg/dl Est Cr Clr Drug Dosing 92.5 ml/min Est GFR ( Amer) 107.6 ml/min Est GFR (Non-Af Amer) 92.9 ml/min BUN/Creatinine Ratio 30.2 H (10-20) Glucose 107 H (70-99(Fasting)) mg/dl Calcium 8.0 L (8.5-10.1) mg/dl Magnesium 2.0 (1.7-2.4) mg/dl Total Bilirubin 0.5 (0.2-1.0) mg/dl AST 14 (13-39) U/L ALT 11 (7-52) U/L Alkaline Phosphatase 44 (34-104) U/L C-Reactive Protein 7.66 H (0-0.5) mg/dl Total Protein 6.0 (6.0-8.3) gm/dl Albumin 3.5 (3.4-5.0) gm/dl Globulin 2.5 (2.5-4.0) gm/dl Albumin/Globulin Ratio 1.4 (0.9-2) Procalcitonin < 0.05 (0-0.5) ng/ml PG Care Time/CCT Total # of Minutes Spent Total Time Spent with Patient: Total time spent is greater than 50% in coordination of care (as documented) at patient's floor/unit and/or counseling patient: Coding Level of Care Code 65347 Subseq Hosp Care Lvl 3 Diagnoses Lumbar compression fracture S32.000A Bilateral leg pain M79.604; M79.605 Hypoxia R09.02 Pulmonary edema J81.1 Elevated troponin R77.8 Bacterial pneumonia J15.9 History of multiple strokes Z86.73 Anxiety and depression F41.9; F32.9 Acid reflux K21.9 Insomnia G47.00 Constipation K59.00 Lumbar burst fracture S32.001A Anemia D64.9
[2021-10-02] MEDS: diphenhydrAMINE Capsule 25 MG CAP PO SCH (20:55)
[2021-10-02] MEDS ORDERED: ONDANSETRON INJ 2 MG/ML 2 ML VIAL IV PRN (22:59)
[2021-10-02] MEDS: MELATONIN 3 MG TAB PO PRN (23:26)
[2021-10-03 05:53] LABS: Basophils # (auto) 0.02 K/uL (0-0.2); Basophils % (auto) 0.3 %; Eosinophils # (auto) 0.33 K/uL (0-0.5); Eosinophils % (auto) 4.8 %; Hemoglobin 11.3 g/dL (12.0-16.0); Immature Granulocytes # (auto) 0.01 K/uL (0.00-0.02); Immature Granulocytes % (auto) 0.1 %; Lymphocytes # (auto) 1.39 K/uL (1.2-3.4); Lymphocytes % (auto) 20.2 %; Mean Corpuscular Hemoglobin 28.6 pg (25-34); Mean Corpuscular Hgb Conc 31.4 g/dL (32-36); Mean Corpuscular Volume 91.1 fL (80-100); Monocytes # (auto) 0.64 K/uL (0.11-0.59); Monocytes % (auto) 9.3 %; Neutrophils # (auto) 4.49 K/uL (1.4-6.5); Neutrophils % (auto) 65.3 %; Platelet Count 213 K/uL (130-400); RDW Coefficient of Variation 13.3 % (11.5-14.5); RDW Standard Deviation 44.4 fL (36.4-46.3); Red Blood Count 3.95 M/uL (4.2-5.4); White Blood Count 6.88 K/uL (4.8-10.8)
[2021-10-03 06:21] LABS: Albumin Globulin Ratio 1.4 (0.9-2); Albumin Level 3.6 gm/dl (3.4-5.0); BUN Creatinine Ratio 21.3 (10-20); Bilirubin,Total 0.5 mg/dl (0.2-1.0); Calcium 8.3 mg/dl (8.5-10.1); Creatinine Clr Calc Pharmacy 80.4 ml/min; Est GFR (African American) 102.8 ml/min; Est GFR (Non-African American) 88.7 ml/min; Globulin 2.6 gm/dl (2.5-4.0); Magnesium 2.1 mg/dl (1.7-2.4); Potassium 3.8 mmol/L (3.5-5.1); Total Protein 6.2 gm/dl (6.0-8.3)
[2021-10-03 06:35] LABS: Ferritin 66.9 ng/ml (8-388)
--- NOTE | 2021-10-03 07:42 | Anesthesiology Consultation ---
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 Verified 09/30/21 17:32 Adhesive Tape Allergy Unknown Unknown Uncoded 09/30/21 17:32 Medications Home Medications Medication Instructions Recorded Confirmed Last Taken clopidogrel 75 mg tablet 75 mg PO QAM #30 tab 09/18/18 09/30/21 09/30/21 cyanocobalamin (vitamin B-12) 1,000 mcg PO QAM 12/14/18 09/30/21 09/30/21 1,000 mcg tablet (Vitamin B-12) atorvastatin 80 mg tablet 80 mg PO QAM 03/06/19 09/30/21 09/30/21 pantoprazole 40 mg tablet,delayed 40 mg PO QAM 03/06/19 09/30/21 09/30/21 release duloxetine 30 mg capsule,delayed 30 mg PO BID 07/31/20 09/30/21 09/30/21 release ibandronate 150 mg tablet 150 mg PO MONTHLY 07/31/20 09/30/21 09/04/21 lisinopril 10 mg tablet 10 mg PO HS #30 tab 07/31/20 09/30/21 09/29/21 potassium chloride 20 mEq 20 meq PO QAM 07/31/20 09/30/21 09/30/21 tablet,extended release(part/cryst) calcium carbonate 600 mg-vitamin 1 tab PO QAM 08/06/21 09/30/21 09/30/21 D3 20 mcg (800 unit) tablet (Caltrate with Vitamin D3) diphenhydramine 25 2 tab PO HS 08/06/21 09/30/21 09/29/21 mg-acetaminophen 500 mg tablet (Tylenol PM Extra Strength) Lactobacillus acidophilus 10 10,000 mmu cells PO DAILY 09/30/21 09/30/21 billion cell capsule (Probiotic) hydrocodone 5 mg-acetaminophen 325 1 tab PO UD PRN 09/30/21 09/30/21 09/29/21 mg tablet Active Medications Generic Name Dose Route Start Last Admin Trade Name Beauq PRN Reason Stop Dose Admin Acetaminophen 1,000 mg 09/30/21 22:45 10/02/21 20:55 Acetaminophen 500 Mg Tab PO 10/30/21 22:44 1,000 mg TID LIOR Administration Atorvastatin Calcium 80 mg 10/01/21 09:00 10/02/21 08:43 Atorvastatin 40 Mg Tab PO 10/31/21 08:59 80 mg QAM LIOR Administration Azithromycin 500 mg 10/01/21 09:00 10/02/21 08:43 Azithromycin 250 Mg Tab PO 10/03/21 08:59 500 mg QAM LIOR Administration Clopidogrel Bisulfate 75 mg 10/01/21 09:00 10/02/21 08:43 Clopidogrel Bisulfate 75 Mg Tab PO 10/31/21 08:59 75 mg QAM LIOR Administration Cyanocobalamin 1,000 mcg 10/01/21 09:00 10/02/21 08:44 Cyanocobalamin (B-12) 500 Mcg Tablet PO 10/31/21 08:59 1,000 mcg QAM LIOR Administration Diphenhydramine HCl 50 mg 09/30/21 22:10 10/02/21 20:55 Diphenhydramine Capsule 25 Mg Cap PO 10/30/21 22:09 Not Given HS LIOR Duloxetine HCl 30 mg 09/30/21 22:05 10/02/21 20:55 Duloxetine Hcl 30 Mg Cap PO 10/30/21 22:04 30 mg BID LIOR Administration Hydromorphone HCl 0.25 mg 10/02/21 18:35 10/02/21 23:26 Hydromorphone Inj 0.5 Mg/0.5 Ml Syr IV 10/16/21 18:34 0.25 mg Q6H PRN Administration Pain Ceftriaxone Sodium 1,000 mg/ 50 mls @ 100 mls/hr 10/01/21 16:00 10/01/21 17:38 Dextrose IV 10/07/21 15:59 Infused Q24H LIOR Infusion Protocol Lidocaine 1 patch 10/02/21 14:45 10/02/21 16:59 Lidocaine 5% 1 Patch TD 11/01/21 14:44 1 patch QAM LIOR Administration Melatonin 3 mg 09/30/21 22:26 10/02/21 23:26 Melatonin 3 Mg Tab PO 10/30/21 22:25 3 mg HS PRN Administration Sleep Miscellaneous 1 ea 10/02/21 21:00 10/02/21 20:56 Remove Lidoderm Patch N/A 11/01/21 20:59 1 ea DAILY@2100 LIOR Administration Ondansetron HCl 4 mg 10/02/21 22:59 10/02/21 23:26 Ondansetron Inj 2 Mg/Ml 2 Ml Vial IV 11/01/21 22:58 4 mg Q6H PRN Administration Nausea And Vomiting Oxycodone HCl 5 - 10 mg 09/30/21 22:05 10/02/21 20:54 Oxycodone Hcl Ir 5 Mg Tab (Immediate Release) PO 10/14/21 22:04 10 mg Q4H PRN Administration Pain Pantoprazole Sodium 40 mg 10/01/21 09:00 10/02/21 08:44 Pantoprazole 40 Mg Tab PO 10/31/21 08:59 40 mg QAM LIOR Administration Polyethylene Glycol 34 gm 10/02/21 18:00 10/02/21 18:20 Polyethylene (Miralax) 17 Gm Pack PO 11/01/21 17:59 34 gm DAILY LIOR Administration Potassium Chloride 20 meq 10/01/21 09:00 10/02/21 08:43 Potassium Chloride Crtab 20 Meq Tabcr PO 10/31/21 08:59 20 meq QAM LIOR Administration Saccharomyces Boulardii 250 mg 10/02/21 09:00 10/02/21 08:43 Saccharomyces Boulardii 250 Mg Cap PO 11/01/21 08:59 250 mg DAILY LIOR Administration Past Medical History Medical History Acid reflux Anxiety Aphasia H/O FROM STROKE 09/2018. Breast cancer 2000. RIGHT LUMPECTOMY. Chronic back pain Closed fracture of right distal tibia Constipation reason for scheduled colonoscopy Degenerative disc disease Depression Deviated septum Fracture of greater trochanter of right femur H/O: stroke High cholesterol Hypertension On anticoagulant therapy Osteoarthritis Peptic ulcer disease H/O BLEEDING ULCERS Right leg pain Stroke SEPTEMBER 17, 2018. TREATED AT [facility]. FOLLOWED WITH DR HOLT. SHORT TERM MEMORY DIFFICULTIES, reason for plavix Stroke-like symptoms 09/2018 Transient ischemic attack (TIA) H/O. LAST EPISODE WAS OCTOBER 2017 Past Family History Family History Brother Stroke Mother , age 80 of heart issues. Coronary heart disease [place] Father , age 36 in a motor vehicle accident No problems noted. Other No family history of adverse response to anesthesia Past Surgical History Surgical History Fusion of spine LUMBAR H/O: hysterectomy History of ankle surgery History of arthroscopy BILATERAL KNEE ARTHROSCOPY History of back surgery (7 TOTAL) History of carpal tunnel release BILATERAL History of cataract surgery BILATERAL History of colonoscopy History of discectomy LUMBAR x4 History of esophagogastroduodenoscopy (EGD) History of open reduction and internal fixation (ORIF) procedure right ankle fx---hardware in place Hx of lumpectomy RIGHT Status post ORIF of fracture of ankle Social History Smoking Status: Never smoker Hx Alcohol Use: No Hx Substance Use: Yes substance use type: prescription drug Physical Exam Vital Signs Last Vital Signs Temp 98.1 F 10/03/21 07:10 Pulse 82 10/03/21 07:10 Resp 20 10/03/21 07:10 BP 142/84 H 10/03/21 07:10 Pulse Ox 94 10/03/21 07:10 Testing Laboratory Results 10/03/21 05:19 10/03/21 05:19 Blood Type A Positive 10/03/21 05:19 Antibody Screen NEGATIVE 10/03/21 05:19 Laboratory Tests 09/30/21 15:55 SARS-CoV-2, RNA, NAAT NEGATIVE Electrocardiogram Date: 09/30/21 Poor data quality, interpretation may be adversely affected Sinus rhythm with occasional Premature ventricular complexes, rate 100 bpm T wave abnormality, consider lateral ischemia Abnormal ECG When compared with ECG of 06-AUG-2021 11:05, Nonspecific T wave abnormality, worse in Anterior leads Confirmed by Spenser Arceo ([id number]) on 10/01/2021 12:43:08 PM Chest X-Ray Date: 09/30/21 IMPRESSION: 1. Asymmetric mild right lung airspace opacity. This could reflect an infectious process. Radiographic follow-up is recommended. 2. Increase in elevation of the right hemidiaphragm. Echocardiogram Date: 10/01/21 LV systolic function is normal No regional wall motion abnormalities noted There is mild concentric LVH EF 60-65% Mild to mod TR Mild MR Compared with study of 08/07/21, no significant change
[2021-10-03] MEDS: ATORVASTATIN 40 MG TAB PO SCH (09:00)
[2021-10-03] MEDS: SACCHAROMYCES BOULARDII 250 MG CAP PO SCH (09:00)
[2021-10-03] MEDS: PANTOprazole 40 MG TAB PO SCH (09:00)
[2021-10-03] MEDS: DULoxetine HCL 30 MG CAP PO SCH ×2 (09:00→20:07)
[2021-10-03] MEDS: POTASSIUM CHLORIDE CRTAB 20 MEQ TABCR PO SCH (09:00)
[2021-10-03] MEDS: CYANOCOBALAMIN (B-12) 500 MCG TABLET PO SCH (09:00)
[2021-10-03] MEDS ORDERED: fentaNYL citrate 100 MCG/2 ML VIAL ONE (10:40)
[2021-10-03] MEDS ORDERED: MIDAZOLAM HCL 1 MG/ML 2ML VIAL ONE (10:40)
[2021-10-03] MEDS ORDERED: ePHEDrine sulfate 50 MG/ML AMP IV PRN (10:48)
[2021-10-03] MEDS ORDERED: ONDANSETRON INJ 2 MG/ML 2 ML VIAL IV PRN ×2 (10:48→15:11)
[2021-10-03] MEDS ORDERED: fentaNYL citrate 100 MCG/2 ML VIAL IV PRN (10:48)
[2021-10-03] MEDS ORDERED: ATROPINE SULFATE 0.1 MG/ML 10ML SYR IV PRN (10:48)
[2021-10-03] MEDS: ACETAMINOPHEN 500 MG TAB PO SCH ×3 (10:49→20:07)
[2021-10-03] MEDS: LIDOCAINE 5% 1 PATCH TD SCH (10:49)
--- NOTE | 2021-10-03 11:38 | History & Physical Bridge Note ---
Date of Service October 03, 2021 History & Physical Bridge Note I have examined the patient, reviewed the History & Physical and in the interval since the performance of the History & Physical I have noted the following changes of clinical significance: no changes noted L4-S1 fusion with L5 kyphoplasty
[2021-10-03] MEDS ORDERED: BUPIVACAINE 0.5 % 5 MG/1 ML MPF 30ML VIAL ONE (11:50)
[2021-10-03] MEDS ORDERED: EPINEPHrine INJ 1 MG/ML AMP ONE (11:50)
[2021-10-03] MEDS ORDERED: ceFAZolin 330 MG/ML 1 GM VIAL ONE (11:51)
[2021-10-03] MEDS ORDERED: ROCURONIUM BROMIDE 10 MG/ML 5 ML VIAL IV ONE ×3 (12:16→12:53)
[2021-10-03] MEDS ORDERED: DEXAMETHASONE SOD INJ 4 MG/ML VIAL ONE (12:16)
[2021-10-03] MEDS ORDERED: PROPOFOL IV EMULSION 10 MG/ML 20 ML VIAL IV ONE (12:16)
[2021-10-03] MEDS ORDERED: ONDANSETRON INJ 2 MG/ML 2 ML VIAL ONE (12:16)
[2021-10-03] MEDS ORDERED: LIDOCAINE 2% 2 ML VIAL/AMP(20MG/ML) INFIL ONE (12:16)
[2021-10-03] MEDS ORDERED: FLOSEAL HEMOSTATIC MATRIX 10ML TOP ONE (12:32)
[2021-10-03] MEDS ORDERED: IOPAMIDOL INJ 61% 15 ML VIAL INJ ONE (12:32)
[2021-10-03] MEDS ORDERED: SUGAMMADEX SODIUM 200 MG/2 ML VIAL IV ONE (12:47)
[2021-10-03] MEDS ORDERED: ceFAZolin 330 MG/ML 1 GM VIAL IR STA (13:19)
--- NOTE | 2021-10-03 13:30 | Operative Report ---
Post Operative Report Pre & Post Diagnosis Operation Date: 10/03/21 11:45 Pre-Op Diagnosis: Lumbar burst fracture Post-Op Diagnosis: Lumbar burst fracture I identified the patient and participated in the time-out.: Yes Procedure Operation Date: 10/03/21 11:45 Actual Procedures #1 posterior spinal fusion L4-S1. #2 kyphoplasty L5 vertebral body. Surgeon Miguel Palacios DO Full Roll Inspector Flory Mariee Estimated Blood Loss 100 Findings Consistent with Post-Op Diagnosis Specimens None Indications This is a 76-year-old female presents with a burst fracture of the trancelike pattern. In light of the gross instability we proceeded with attempts at lumbar stabilization. Description of Procedure Patient was met with identified informed consent obtained. Patient was then taken to the operative suite underwent ablation placed in a prone position the Nestor table top Darrel frame. All bony prominences well-padded eyes inspected to ensure no external pressure placed upon the. This point the lumbar spine was prepped and draped in a sterile fashion. Sharp dissection with the assistance pericardial form down to and exposing the fusion mass from L4-L5 as well as the facets and ala of S1. Several attempts were made adequately identifying the pedicles with fluoroscopy but were unable to obtain any safe visualization. She has profound osteoporosis appreciated both directly will work on the bone ends with very poor image quality on fluoroscopy. I was able to adequately identify the L5 pedicle on the right and with the assistance of neuro monitoring and fluoroscopy was able to safely place a Kyphon working cannula within the L5 vertebral body. A 20 mm Kyphon balloon was inserted and sequentially inflated with evaluation in AP and lateral planes. Was removed and approximately 6 cc of Kyphon cement injected with fluoroscopic visualization. This did demonstrate evidence of interdigitation within the bony fragments. After this was complete the Kyphon cannula was removed. I then burred to the lateral masses from L4 to the sacral ala to subcortically bone and placed infuse collagen sponge, and master graft in the posterior gutters. 15 round CHELE drains inserted. Incision was closed with 1 Vicryl to fascia 2-0 Vicryl subcutaneously and 4 Monocryl for final skin closure. Steri-Strips dressings placed. Patient waken taken PACU stable condition. Please note spinal cord monitoring was utilized at the procedure no changes noted. Lastly Flory Mariee was present at the entire surgeon while the patient positioning complex portions of the surgery and final skin closure. I attest to the content of the Intraoperative Record and any orders documented therein. Any exceptions are noted below.
--- NOTE | 2021-10-03 13:36 | Fluoroscopy Report ---
FL lumbar spine 2-3V CLINICAL HISTORY: L4-S1 D/F/I L5 KYPHOPLASTY COMPARISON STUDY: CT lumbar spine from 09/30/2021 FLUOROSCOPY TIME: 162 second. FLUOROSCOPIC IMAGES: 2 FINDINGS: AP and lateral spot images were obtained status post kyphoplasty at the L5 level. IMPRESSION: Status post L5 kyphoplasty. ACT 112: Negative or not required by law. Electronically signed by: Josiah Romero M.D. 10/03/2021 1:35 PM
--- NOTE | 2021-10-03 14:46 | Anesthesiology Progress Note ---
Date of Service October 03, 2021 Anesthesia Post Procedure Vital Signs Vital Signs: Temp Pulse Pulse Pulse Resp BP Pulse Ox 10/03/21 14:40 90 12 124/79 92 10/03/21 14:30 98.4 F 90 18 134/85 94 10/03/21 14:20 93 H 18 128/87 93 10/03/21 14:10 90 15 149/88 H 95 10/03/21 14:00 91 H 13 144/83 H 97 10/03/21 13:50 92 H 14 150/95 H 98 10/03/21 13:43 97.3 F L 95 H 18 173/77 H 99 10/03/21 10:44 98.6 F 86 20 156/90 H 98 10/03/21 07:35 75 10/03/21 07:10 98.1 F 82 20 142/84 H 94 10/03/21 03:18 98.2 F 83 24 138/83 91 10/03/21 00:17 84 10/02/21 23:24 98.6 F 77 18 150/83 H 94 10/02/21 22:18 87 10/02/21 22:00 10/02/21 20:15 98.6 F 79 16 158/87 H 93 10/02/21 16:00 91 H 10/02/21 15:58 98.4 F 84 17 155/82 H 92 Pulse Ox 10/03/21 14:40 10/03/21 14:30 10/03/21 14:20 10/03/21 14:10 10/03/21 14:00 10/03/21 13:50 10/03/21 13:43 10/03/21 10:44 10/03/21 07:35 10/03/21 07:10 10/03/21 03:18 10/03/21 00:17 10/02/21 23:24 10/02/21 22:18 10/02/21 22:00 94 10/02/21 20:15 10/02/21 16:00 10/02/21 15:58 Pain Intensity Back: Pain Intensity: 8 Transfer of Care Handoff Completed per policy Notes Mental Status: alert / awake / arousable and participated in evaluation Patient Amnestic to Procedure: Yes Nausea / Vomiting: adequately controlled Pain: adequately controlled Airway Patency, RR, SpO2: stable & adequate BP & HR: stable & adequate Hydration State: stable & adequate Anesthetic Complications: no major complications apparent and Pt Satisfied with anesthetic care
[2021-10-03] MEDS ORDERED: ACETAMINOPHEN 500 MG TAB PO PRN (15:11)
[2021-10-03] MEDS ORDERED: NALOXONE HCL 0.4 MG/1 ML VIAL/CARP IV PRN (15:11)
[2021-10-03] MEDS ORDERED: DO NOT ADMINISTER PNEUMOCOCCAL VACCINE PRN (15:11)
[2021-10-03] MEDS ORDERED: DO NOT ADMINISTER FLU VACCINE PRN (15:11)
[2021-10-03] MEDS ORDERED: LORazepam 0.5 MG TAB PO PRN (15:11)
[2021-10-03] MEDS ORDERED: hydrOXYzine HCl 25 MG TAB PO PRN (15:11)
[2021-10-03] MEDS ORDERED: PROMETHAZINE HCL 12.5 MG in SODIUM CHLORIDE 0.9% 50 ML IV PRN (15:11)
[2021-10-03] MEDS ORDERED: ALUMINUM/MAGNESIUM SUSP 30 ML UDC PO PRN (15:11)
[2021-10-03] MEDS ORDERED: HYDROmorphone INJ 1 MG/ML SYRINGE IV PRN (15:11)
[2021-10-03] MEDS ORDERED: diphenhydrAMINE Capsule 25 MG CAP PO PRN (15:11)
[2021-10-03] MEDS ORDERED: FAMOTIDINE 20 MG TAB PO PRN (15:11)
[2021-10-03] MEDS ORDERED: ACETAMINOPHEN 1,000 MG/100 ML VIAL IV PRN (15:11)
[2021-10-03] MEDS ORDERED: LORazepam 2 MG/1 ML VIAL IV PRN (15:11)
[2021-10-03] MEDS ORDERED: SOD PHOSPHATE/SOD BIPHOSPHATE ENEMA 132 ML BTL PR PRN (15:11)
[2021-10-03] MEDS ORDERED: METOCLOPRAMIDE HCL INJ 5 MG/ML 2 ML VIAL IV PRN (15:11)
[2021-10-03] MEDS ORDERED: ONDANSETRON 4 MG OD TAB PO PRN (15:11)
[2021-10-03] MEDS: SODIUM CHLORIDE 0.9% 1000ML 1,000 ML IV SCH (15:45)
--- NOTE | 2021-10-03 16:05 | Hospitalist Progress Note ---
Date of Service October 03, 2021 Assessment & Plan (1) Lumbar compression fracture: Plan: WIth a h/o 7 prior lumbar spine surgeries, now with fall and burst fracture of L-spine of a column of 3 vertebrae which is highly unstable Acetaminophen 1g PO TID Avoid NSAIDs due to history of recurrent strokes Now s/p posterior spinal fusion L4-S1 and kyphoplasty L5 vertebral body. Unfortunately, Dr. Palacios was not able to place rods due to significantly brittle bones -continue Oxycodone 5-10mg PO Q4H PRN for breakthrough pain -continue IV dilaudid prn severe pain -post op care as per Ortho -check CBC, BMP in AM -adv diet as per Ortho -IVFs post op -She does have a h/o perioperative CVA and delirium after anesthesia and will need to be closely monitored-keep on tele till tomorrow (2) Bilateral leg pain: Plan: Suspect most likely secondary to her back-has been chronic for many months at least she thinks, exacerbated by recent fall but no new cauda equina suspected. US arterial doppler to r/o PAD-negative except slow flow in Left post tibial artery Otherwise continue Cymbalta and other pain medication as above now s/p spine surgery (3) Constipation: Plan: No BM since day of admission and has h/o severe chronic constipation Tried Miralax last night but had vomiting. No abd pain -continue MiraLAX q6h -start senna/docusate consider dulcolax suppos tomorrow -ZOfran and phenergan prn (4) Hypoxia: Plan: Suspect secondary to pulmonary edema +/- PNA below Aim O2 sats > 94%, wean as able (5) Pulmonary edema: Plan: Lasix 20mg IV x 1 given on admission TTE to assess for cardiomyopathy despite recently taken there has been an acute change in her clinical state--> normal Daily weight Strict I&Os continue to treat for PNA (6) Elevated troponin: Plan: No chest pain or shortness of breath to suggest ACS troponin 0.2 and then trended downward, no ischemic changes on ECG, no CP ECHO no WMAs this is myocardial demand ischemia (7) Bacterial pneumonia: Plan: Chills prior to admission, no fevers, no cough, WBC elevated. CXR with atelectasis vs interstitial thickening COVID negative Procalcitonin negative on 10/02 leukocytosis now resolved, was weaned off O2 but now back on post-op Continue ceftriaxone x 5 day course, has now completed 3 day course of azithromycin 500mg has a h/o C. diff so added probiotics (8) History of multiple strokes: Plan: bilateral cerebellar and basal ganglia strokes occurred perioperatively after hip fracture in 2019. These were not thought to possibly be embolic versus related to severe postoperative anemia She never had any evidence of atrial fibrillation Then with TIA and expressive aphasia in 2021. 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 She wishes to continue this during her hospital stay and she used to be on Ambien which was discontinued by PCP (12) Anemia: Plan: Hemoglobin mildly low but stable from previous at 11 Normocytic Fe studies show Fe deficiency with transferrin sat of 8% Follow CBC postoperatively B12 levels borderline low in 2019, folate normal then Continue B12 supplementation -plan to give IV Venofer tomorrow (13) Osteoporosis: Plan: brought in [facility] from home, will wait till she is able to sit up and remain upright for 30 min and drinks full glass of water (14) Multi-infarct dementia: Plan: noted supportive care Plan: VTE Prophylaxis -SCDs only given spine surgery Disposition -contiued stay, expect she will stay here at least 3 to 5 days postoperatively for recovery and then will need rehab Admission and Anticipated Discharge Date Admission Date: October 02, 2021 Subjective Pt recently returned from back surgery. Is sleeping but easily awoke. Denies pain in back or legs. Only has chronic pain in right knee. No CP or SOB. Had vomiting x 4 last night after starting to sip some Miralax Tele with sinus rhythm, 1st deg AVB, rate 70s Review of Systems Review of Systems: All systems reviewed & are unremarkable except as noted in HPI & below Physical Exam Constitutional: WD/WN, vitals as above Eyes: + anicteric sclerae Neck: trachea midline, no thyromegaly Respiratory: normal respiratory effort, lungs clear to auscultation Cardiovascular: RRR, no murmur, no edema Chest (Breasts): Chest: normal inspection of chest Gastrointestinal (Abdomen): normal bowel sounds, soft, nontender, no hepatosplenomegaly Musculoskeletal: Extremities: extremities normal to inspection; no cyanosis and no clubbing Skin: no rashes, warm and dry Neurologic: moves all extremities and awake; no focal motor deficits Psychiatric: A+Ox3, euthymic affect Lymphatic: no lymphedema Results & Data Results & Data ([facility]) Vital Signs (Past 12 Hours) Vital Signs Temp Pulse Pulse Pulse Resp BP Pulse Ox 10/03/21 15:35 37.0 C 86 18 124/80 94 10/03/21 15:05 37.1 C 91 H 18 127/83 93 10/03/21 14:50 88 15 136/82 94 10/03/21 14:40 90 12 124/79 92 10/03/21 14:30 36.9 C 90 18 134/85 94 10/03/21 14:20 93 H 18 128/87 93 10/03/21 14:10 90 15 149/88 H 95 10/03/21 14:00 91 H 13 144/83 H 97 10/03/21 13:50 92 H 14 150/95 H 98 10/03/21 13:43 36.3 C L 95 H 18 173/77 H 99 10/03/21 10:44 37 C 86 20 156/90 H 98 10/03/21 07:35 75 10/03/21 07:10 36.7 C 82 20 142/84 H 94 Laboratory Results 10/03/21 10/03/21 10/03/21 Range/Units 05:19 05:19 05:19 WBC 6.88 (4.8-10.8) K/uL RBC 3.95 L (4.2-5.4) M/uL Hgb 11.3 L (12.0-16.0) g/dL Hct 36.0 L (37-47) % MCV 91.1 (80-100) fL MCH 28.6 (25-34) pg MCHC 31.4 L (32-36) g/dL RDW Std Deviation 44.4 (36.4-46.3) fL RDW Coeff of Edouard 13.3 (11.5-14.5) % Plt Count 213 (130-400) K/uL MPV 10.0 (7.4-10.4) fL Immature Gran % (Auto) 0.1 % Neut % (Auto) 65.3 % Lymph % (Auto) 20.2 % [place] % (Auto) 9.3 % Eos % (Auto) 4.8 % Baso % (Auto) 0.3 % Neut # (Auto) 4.49 (1.4-6.5) K/uL Lymph # (Auto) 1.39 (1.2-3.4) K/uL [place] # (Auto) 0.64 H (0.11-0.59) K/uL Eos # (Auto) 0.33 (0-0.5) K/uL Baso # (Auto) 0.02 (0-0.2) K/uL Immature Gran # (Auto) 0.01 (0.00-0.02) K/uL Sodium 138 (136-145) mmol/L Potassium 3.8 (3.5-5.1) mmol/L Chloride 105 (98-107) mmol/L Carbon Dioxide 27 (21-32) mmol/L Anion Gap 6 (3-11) BUN 13 (6-23) mg/dl Creatinine 0.61 (0.6-1.2) mg/dl Est Cr Clr Drug Dosing 80.4 ml/min Est GFR ( Amer) 102.8 ml/min Est GFR (Non-Af Amer) 88.7 ml/min BUN/Creatinine Ratio 21.3 H (10-20) Glucose 112 H (70-99(Fasting)) mg/dl Calcium 8.3 L (8.5-10.1) mg/dl Magnesium 2.1 (1.7-2.4) mg/dl Iron 24 L (35-150) mcg/dl TIBC 300 (250-450) mcg/dl Unsaturated IBC 276 (155-355) mcg/dl Transferrin % Sat 8 L (15-50) % Ferritin 66.9 (8-388) ng/ml Total Bilirubin 0.5 (0.2-1.0) mg/dl AST 13 (13-39) U/L ALT 10 (7-52) U/L Alkaline Phosphatase 47 (34-104) U/L Total Protein 6.2 (6.0-8.3) gm/dl Albumin 3.6 (3.4-5.0) gm/dl Globulin 2.6 (2.5-4.0) gm/dl Albumin/Globulin Ratio 1.4 (0.9-2) Blood Type A Positive Antibody Screen NEGATIVE PG Care Time/CCT Total # of Minutes Spent Total Time Spent with Patient: Total time spent is greater than 50% in coordination of care (as documented) at patient's floor/unit and/or counseling patient: Coding Level of Care Code 29430 Subseq Hosp Care Lvl 2 Diagnoses Lumbar compression fracture S32.000A Bilateral leg pain M79.604; M79.605 Constipation K59.00 Hypoxia R09.02 Pulmonary edema J81.1 Elevated troponin R77.8 Bacterial pneumonia J15.9 History of multiple strokes Z86.73 Anxiety and depression F41.9; F32.9 Acid reflux K21.9 Insomnia G47.00 Anemia D64.9 Osteoporosis M81.0 Multi-infarct dementia F01.51 Dementia behavioral disturbance: with behavioral disturbance (1) Multi-infarct dementia Dementia behavioral disturbance: with behavioral disturbance Qualified Code(s): F01.51 - Vascular dementia with behavioral disturbance
[2021-10-03] MEDS: cefTRIAXone SODIUM 1,000 MG in DEXTROSE 5% 50 ML IV SCH (16:50)
[2021-10-03] MEDS: POLYETHYLENE (MIRALAX) 17 GM PACK PO SCH (17:23)
[2021-10-03] MEDS: HYDROmorphone INJ 0.5 MG/0.5 ML SYR IV PRN (18:25)
[2021-10-03] MEDS: diphenhydrAMINE Capsule 25 MG CAP PO SCH (20:07)
[2021-10-03] MEDS: DOCUSATE SODIUM/SENNA 50/8.6MG TAB PO SCH (20:07)
[2021-10-03] MEDS: ceFAZolin 2000MG 2,000 MG/15 ML SYR IV SCH (20:08)
[2021-10-04] MEDS: ceFAZolin 2000MG 2,000 MG/15 ML SYR IV SCH (03:44)
[2021-10-04] MEDS: HYDROmorphone INJ 0.5 MG/0.5 ML SYR IV PRN ×3 (04:13→23:00)
[2021-10-04] MEDS: SODIUM CHLORIDE 0.9% 1000ML 1,000 ML IV SCH (05:58)
[2021-10-04] MEDS: POLYETHYLENE (MIRALAX) 17 GM PACK PO SCH ×4 (05:59→23:01)
[2021-10-04] MEDS ORDERED: IBANDRONATE 150 MG PO SCH (06:00)
[2021-10-04 07:53] LABS: Basophils # (auto) 0.01 K/uL (0-0.2); Basophils % (auto) 0.1 %; Eosinophils # (auto) 0.01 K/uL (0-0.5); Eosinophils % (auto) 0.1 %; Hematocrit (blood only) 30.5 % (37-47); Hemoglobin 9.8 g/dL (12.0-16.0); Immature Granulocytes # (auto) 0.01 K/uL (0.00-0.02); Immature Granulocytes % (auto) 0.1 %; Lymphocytes # (auto) 0.78 K/uL (1.2-3.4); Lymphocytes % (auto) 9.4 %; Mean Corpuscular Hemoglobin 28.7 pg (25-34); Mean Corpuscular Hgb Conc 32.1 g/dL (32-36); Mean Corpuscular Volume 89.2 fL (80-100); Mean Platelet Volume 9.7 fL (7.4-10.4); Monocytes # (auto) 0.74 K/uL (0.11-0.59); Monocytes % (auto) 8.9 %; Neutrophils # (auto) 6.72 K/uL (1.4-6.5); Neutrophils % (auto) 81.4 %; Platelet Count 210 K/uL (130-400); RDW Coefficient of Variation 13.1 % (11.5-14.5); RDW Standard Deviation 42.2 fL (36.4-46.3); Red Blood Count 3.42 M/uL (4.2-5.4); White Blood Count 8.27 K/uL (4.8-10.8)
[2021-10-04] MEDS: DULoxetine HCL 30 MG CAP PO SCH ×2 (08:25→21:04)
[2021-10-04] MEDS: SACCHAROMYCES BOULARDII 250 MG CAP PO SCH (08:25)
[2021-10-04] MEDS: ATORVASTATIN 40 MG TAB PO SCH (08:26)
[2021-10-04] MEDS: PANTOprazole 40 MG TAB PO SCH (08:27)
[2021-10-04] MEDS: CYANOCOBALAMIN (B-12) 500 MCG TABLET PO SCH (08:27)
[2021-10-04 08:28] LABS: BUN Creatinine Ratio 27.8 (10-20); Calcium 8.9 mg/dl (8.5-10.1); Creatinine Clr Calc Pharmacy 90.8 ml/min; Est GFR (Non-African American) 92.3 ml/min; Potassium 4.1 mmol/L (3.5-5.1)
[2021-10-04] MEDS: ACETAMINOPHEN 500 MG TAB PO SCH ×3 (08:29→21:11)
[2021-10-04] MEDS: POTASSIUM CHLORIDE CRTAB 20 MEQ TABCR PO SCH (08:30)
[2021-10-04] MEDS: LIDOCAINE 5% 1 PATCH TD SCH ×2 (08:31→09:55)
[2021-10-04] MEDS ORDERED: IRON SUCROSE 300 MG in SODIUM CHLORIDE 0.9% 250 ML IV ONE (13:45)
[2021-10-04] MEDS ORDERED: bisacodyL 5 MG TABEC PO ONE (13:46)
--- NOTE | 2021-10-04 13:52 | Hospitalist Progress Note ---
Date of Service October 04, 2021 Assessment & Plan (1) Lumbar compression fracture: Plan: WIth a h/o 7 prior lumbar spine surgeries, now with fall and burst fracture of L-spine of a column of 3 vertebrae which is highly unstable Acetaminophen 1g PO TID Avoid NSAIDs due to history of recurrent strokes Now s/p posterior spinal fusion L4-S1 and kyphoplasty L5 vertebral body on 10/03. Unfortunately, Dr. Palacios was not able to place rods due to significantly brittle bones DOing well post-op, only some soreness in back but no further radicular pain as before Selby and JPs drain remain in place Hgb did drop to 9.8 with some acute blood loss anemia -continue Oxycodone 5-10mg PO Q4H PRN for breakthrough pain -continue IV dilaudid prn severe pain -post op care as per Ortho -check CBC, BMP in AM -adv diet today to regular -dc IVFs -She does have a h/o perioperative CVA and delirium after anesthesia and will need to be closely monitored-keep on tele till (48 hrs post-op) (2) Bilateral leg pain: Plan: Suspect most likely secondary to her back-has been chronic for many months at least she thinks, exacerbated by recent fall but no new cauda equina suspected. US arterial doppler to r/o PAD-negative except slow flow in Left post tibial artery Now resolved post-op - continue Cymbalta and other pain medication as above (3) Constipation: Plan: No BM since day of admission and has h/o severe chronic constipation No abd pain -continue MiraLAX q6h -cont senna/docusate -give bisacodyl 5mg po x 1 now -consider dulcolax suppos tomorrow (4) Hypoxia: Plan: Suspect secondary to pulmonary edema +/- PNA below Aim O2 sats > 94%, wean as able (5) Pulmonary edema: Plan: Lasix 20mg IV x 1 given on admission TTE to assess for cardiomyopathy despite recently taken there has been an acute change in her clinical state--> normal Daily weight Strict I&Os continue to treat for PNA (6) Elevated troponin: Plan: No chest pain or shortness of breath to suggest ACS troponin 0.2 and then trended downward, no ischemic changes on ECG, no CP ECHO no WMAs this is myocardial demand ischemia (7) Bacterial pneumonia: Plan: Chills prior to admission, no fevers, no cough, WBC elevated. CXR with atelectasis vs interstitial thickening COVID negative Procalcitonin negative on 10/02 leukocytosis now resolved, was weaned off O2 but now back on post-op Continue ceftriaxone x 5 day course, has now completed 3 day course of azithromycin 500mg has a h/o C. diff so added probiotics (8) History of multiple strokes: Plan: bilateral cerebellar and basal ganglia strokes occurred perioperatively after hip fracture in 2018. These were not thought to possibly be embolic versus related to severe postoperative anemia She never had any evidence of atrial fibrillation Then with TIA and expressive aphasia in 2021. Has PFO, HOlter monitor x 30 days negative for occult Afib in early 2021 holding clopidogrel and continuing atorvastatin Discussed with spine surgery-hold Plavix post-op,, but plan to restart as soon as possible after surgery-hopefully at 48 hr post op osmin (9) Anxiety and depression: Plan: Her anxiety is worsened by acute medical situation Continue duloxetine avoid benzos given underlying dementia and h/o delirium post-op (10) Acid reflux: Plan: Continue pantoprazole (11) Insomnia: Plan: Discussed fdc risks to continued diphenhydramine use - including increased risk of falls. She wishes to continue this during her hospital stay - she used to be on Ambien which was discontinued by PCP (12) Anemia: Plan: Hemoglobin mildly low but stable from previous at 11 on admission now drop to 9 s/p surgery from acute blood loss anemia Normocytic Fe studies show Fe deficiency with transferrin sat of 8% Follow CBC -give Venofer 300mg IV x 1 today and would give two more doses after this B12 levels borderline low in 2019, folate normal then Continue B12 supplementation (13) Osteoporosis: Plan: brought in [facility] from home, will wait till she is able to sit up and remain upright for 30 min and drinks full glass of water (14) Multi-infarct dementia: Plan: noted supportive care Plan: VTE Prophylaxis -SCDs only given spine surgery Disposition -contiued stay, expect she will stay here at least 3 to 5 days postoperatively for recovery and then will need rehab. Stay on tele one more day and if no signs of CVA or cardiac issues, ok to downgrade to medical on 10/05 Admission and Anticipated Discharge Date Admission Date: October 02, 2021 Subjective Having some soreness in the lower back, and has zero pain in her legs now. Still no BM. No nausea and is ready to advance diet to regular food. No CP or SOB, no cough. No abd pain. Had a lot of trouble sleeping last night due to her IV beeping constantly for occluded line as her PIV is in her left AC. Says she did not yet sit in a chair with PT, plan is for OOB to chair tomorrow Selby still in place Tele with NSR, rates 70-80s Review of Systems Review of Systems: All systems reviewed & are unremarkable except as noted in HPI & below Physical Exam Constitutional: WD/WN, vitals as above Eyes: + anicteric sclerae Neck: trachea midline, no thyromegaly Respiratory: normal respiratory effort, lungs clear to auscultation Cardiovascular: RRR, no murmur, no edema Chest (Breasts): Chest: normal inspection of chest Gastrointestinal (Abdomen): normal bowel sounds, soft, nontender, no hepatosplenomegaly Musculoskeletal: Extremities: extremities normal to inspection; no cyanosis and no clubbing Skin: no rashes, warm and dry Neurologic: moves all extremities and awake; no focal motor deficits Psychiatric: A+Ox3, euthymic affect Lymphatic: no lymphedema Results & Data Results & Data ([facility]) Vital Signs (Past 12 Hours) Vital Signs Temp Pulse Resp BP Pulse Ox 10/04/21 02:49 36.7 C 73 18 154/82 H 96 Laboratory Results 10/04/21 10/04/21 Range/Units 07:26 07:26 WBC 8.27 (4.8-10.8) K/uL RBC 3.42 L (4.2-5.4) M/uL Hgb 9.8 L (12.0-16.0) g/dL Hct 30.5 L (37-47) % MCV 89.2 (80-100) fL MCH 28.7 (25-34) pg MCHC 32.1 (32-36) g/dL RDW Std Deviation 42.2 (36.4-46.3) fL RDW Coeff of Edouard 13.1 (11.5-14.5) % Plt Count 210 (130-400) K/uL MPV 9.7 (7.4-10.4) fL Immature Gran % (Auto) 0.1 % Neut % (Auto) 81.4 % Lymph % (Auto) 9.4 % [place] % (Auto) 8.9 % Eos % (Auto) 0.1 % Baso % (Auto) 0.1 % Neut # (Auto) 6.72 H (1.4-6.5) K/uL Lymph # (Auto) 0.78 L (1.2-3.4) K/uL [place] # (Auto) 0.74 H (0.11-0.59) K/uL Eos # (Auto) 0.01 (0-0.5) K/uL Baso # (Auto) 0.01 (0-0.2) K/uL Immature Gran # (Auto) 0.01 (0.00-0.02) K/uL Sodium 138 (136-145) mmol/L Potassium 4.1 (3.5-5.1) mmol/L Chloride 105 (98-107) mmol/L Carbon Dioxide 26 (21-32) mmol/L Anion Gap 7 (3-11) BUN 15 (6-23) mg/dl Creatinine 0.54 L (0.6-1.2) mg/dl Est Cr Clr Drug Dosing 90.8 ml/min Est GFR ( Amer) 107.0 ml/min Est GFR (Non-Af Amer) 92.3 ml/min BUN/Creatinine Ratio 27.8 H (10-20) Glucose 107 H (70-99(Fasting)) mg/dl Calcium 8.9 (8.5-10.1) mg/dl PG Care Time/CCT Total # of Minutes Spent Total Time Spent with Patient: Total time spent is greater than 50% in coordination of care (as documented) at patient's floor/unit and/or counseling patient: Coding Level of Care Code 01526 Subseq Hosp Care Lvl 3 Diagnoses Lumbar compression fracture S32.000A Bilateral leg pain M79.604; M79.605 Constipation K59.00 Hypoxia R09.02 Pulmonary edema J81.1 Elevated troponin R77.8 Bacterial pneumonia J15.9 History of multiple strokes Z86.73 Anxiety and depression F41.9; F32.9 Acid reflux K21.9 Insomnia G47.00 Anemia D64.9 Osteoporosis M81.0 Multi-infarct dementia F01.51 Dementia behavioral disturbance: with behavioral disturbance (1) Multi-infarct dementia Dementia behavioral disturbance: with behavioral disturbance Qualified Code(s): F01.51 - Vascular dementia with behavioral disturbance
--- NOTE | 2021-10-04 14:04 | Orthopedic Progress Note ---
Date of Service October 04, 2021 Assessment & Plan (1) Lumbar burst fracture: Plan: Patient is status post kyphoplasty L5. She may begin transfers to chair with assistance. She is able to tolerate this we may initiate physical therapy for ambulation. Admission and Anticipated Discharge Date Admission Date: October 02, 2021 Subjective Patient's back pain is controlled. She denies any leg pain numbness or tingling. Physical Exam Physical Exam: On exam she is able to sit up in bed comfortably. She has good strength testing lower extremities. Results & Data ([facility]) Vital Signs (Past 12 Hours) Vital Signs Temp Pulse Resp BP Pulse Ox 10/04/21 02:49 36.7 C 73 18 154/82 H 96
[2021-10-04] MEDS: cefTRIAXone SODIUM 1,000 MG in DEXTROSE 5% 50 ML IV SCH (16:34)
[2021-10-04] MEDS: oxyCODONE HCL IR 5 MG TAB (IMMEDIATE RELEASE) PO PRN (19:53)
[2021-10-04] MEDS: DOCUSATE SODIUM/SENNA 50/8.6MG TAB PO SCH (21:03)
[2021-10-04] MEDS: diphenhydrAMINE Capsule 25 MG CAP PO SCH (23:00)
[2021-10-04] MEDS: MELATONIN 3 MG TAB PO PRN (23:51)
[2021-10-05] MEDS: POLYETHYLENE (MIRALAX) 17 GM PACK PO SCH ×3 (05:46→18:29)
[2021-10-05] MEDS: oxyCODONE HCL IR 5 MG TAB (IMMEDIATE RELEASE) PO PRN ×3 (07:52→20:42)
[2021-10-05] MEDS: SACCHAROMYCES BOULARDII 250 MG CAP PO SCH (07:53)
[2021-10-05] MEDS: ATORVASTATIN 40 MG TAB PO SCH (07:53)
[2021-10-05] MEDS: CYANOCOBALAMIN (B-12) 500 MCG TABLET PO SCH (07:54)
[2021-10-05] MEDS: LIDOCAINE 5% 1 PATCH TD SCH ×2 (07:54→08:30)
[2021-10-05] MEDS: DULoxetine HCL 30 MG CAP PO SCH ×2 (07:54→20:40)
[2021-10-05] MEDS: PANTOprazole 40 MG TAB PO SCH (07:54)
[2021-10-05] MEDS: POTASSIUM CHLORIDE CRTAB 20 MEQ TABCR PO SCH (08:00)
[2021-10-05] MEDS: ACETAMINOPHEN 500 MG TAB PO SCH ×3 (08:00→20:44)
[2021-10-05] MEDS: IRON SUCROSE 300 MG in SODIUM CHLORIDE 0.9% 250 ML IV SCH (08:00)
[2021-10-05 08:19] LABS: Basophils # (auto) 0.03 K/uL (0-0.2); Basophils % (auto) 0.4 %; Eosinophils # (auto) 0.19 K/uL (0-0.5); Eosinophils % (auto) 2.6 %; Hematocrit (blood only) 30.6 % (37-47); Hemoglobin 9.7 g/dL (12.0-16.0); Immature Granulocytes # (auto) 0.01 K/uL (0.00-0.02); Immature Granulocytes % (auto) 0.1 %; Lymphocytes # (auto) 1.65 K/uL (1.2-3.4); Lymphocytes % (auto) 22.1 %; Mean Corpuscular Hemoglobin 28.4 pg (25-34); Mean Corpuscular Hgb Conc 31.7 g/dL (32-36); Mean Corpuscular Volume 89.5 fL (80-100); Mean Platelet Volume 9.4 fL (7.4-10.4); Monocytes # (auto) 0.83 K/uL (0.11-0.59); Monocytes % (auto) 11.1 %; Neutrophils # (auto) 4.74 K/uL (1.4-6.5); Neutrophils % (auto) 63.7 %; Platelet Count 231 K/uL (130-400); RDW Coefficient of Variation 13.3 % (11.5-14.5); RDW Standard Deviation 42.7 fL (36.4-46.3); Red Blood Count 3.42 M/uL (4.2-5.4); White Blood Count 7.45 K/uL (4.8-10.8)
[2021-10-05 08:38] LABS: BUN Creatinine Ratio 20.8 (10-20); Calcium 8.1 mg/dl (8.5-10.1); Creatinine Clr Calc Pharmacy 102.2 ml/min; Est GFR (African American) 111.2 ml/min; Potassium 3.3 mmol/L (3.5-5.1)
--- NOTE | 2021-10-05 09:26 | Orthopedic Progress Note ---
Date of Service October 05, 2021 Assessment & Plan (1) Lumbar burst fracture: Plan: Patient will be bed to chair today with TLSO. Again if tolerated will consider advancing this. Continue with pain control. Will be able to most likely remove CHELE drain tomorrow. Would suggest short rehab stay upon discharge before returning home with her spouse. Admission and Anticipated Discharge Date Admission Date: October 02, 2021 Subjective Patient is postoperative day 2 kyphoplasty of L5 by Dr. Palacios. She states she has a headache which is chronic for her. She also has lower back pain. She is unsure if it is improved or not compared to preoperative status. She is currently bed to chair with TLSO brace. If tolerated can advance to physical therapy and ambulation. CHELE drain output last shift was 15 cc Review of Systems Review of Systems: All systems reviewed & are unremarkable except as noted in HPI & below Physical Exam Physical Exam: She sitting up in bed eating breakfast No acute distress strength is intact bilateral lower extremities Lumbar dressing is clean dry and intact with functioning CHELE drain Results & Data ([facility]) Vital Signs (Past 12 Hours) Vital Signs Temp Pulse Pulse Resp BP Pulse Ox 10/05/21 07:42 70 10/05/21 07:20 36.5 C 71 20 165/73 H 100 10/05/21 04:00 36.3 C L 71 18 154/93 H 95 10/04/21 23:17 78 10/04/21 23:00 36.5 C 74 18 162/88 H 97
[2021-10-05] MEDS: MAGNESIUM HYDROXIDE SUSP 30 ML UDC PO PRN (09:45)
[2021-10-05] MEDS: traMADol HCL 50 MG TABLET PO PRN (10:45)
--- NOTE | 2021-10-05 14:00 | Hospitalist Progress Note ---
Date of Service October 05, 2021 Assessment & Plan (1) Lumbar compression fracture: Plan: Lumbar compression fracture, history of Cefanex prior spinal surgeries Patient presented with a fall and a burst fracture of the L-spine and 3 vertebrae, unstable -Acetaminophen 1g PO TID -Avoid NSAIDs due to history of recurrent strokes -s/p posterior spinal fusion L4-S1 and kyphoplasty L5 vertebral body on 10/03. Unfortunately, Dr. Palacios was not able to place rods due to significantly brittle bones -Selby and JPs drain remain in place -Hgb did drop to 9.8 with some acute blood loss anemia, stable at 9.7 today -continue Oxycodone 5-10mg PO Q4H PRN for breakthrough pain -continue IV dilaudid prn severe pain -post op care as per Ortho Continue regular diet -dc IVFs History of postop CVA and delirium, patient currently doing well and mentating normally 3/3 Working to get up to chair today, then engaging with PT as able. Anticipate rehab/placement needs (2) Bilateral leg pain: Plan: -Suspect most likely secondary to her back-has been chronic for many months at least she thinks, exacerbated by recent fall but no new cauda equina suspected. -US arterial doppler to r/o PAD negative except slow flow in Left post tibial artery -Now improved post-op - continue Cymbalta and other pain medication as above (3) Constipation: Plan: -No BM since day of admission and has h/o severe chronic constipation -No abd pain -continue MiraLAX q6h -cont senna/docusate -give bisacodyl 5mg po x 1 now -Dulcolax as needed [place] if no BM with above (4) Hypoxia: Plan: -Suspect secondary to pulmonary edema +/- PNA below -Aim O2 sats > 94%, wean as able (5) Pulmonary edema: Plan: -Lasix 20mg IV x 1 given on admission -TTE to assess for cardiomyopathy despite recently taken there has been an acute change in her clinical state--> normal -Daily weight -Strict I&Os -continue to treat for PNA (6) Elevated troponin: Plan: -No chest pain or shortness of breath to suggest ACS -troponin 0.2 and then trended downward, no ischemic changes on ECG, no CP -ECHO no WMAs -c/w demand ischemia (7) Bacterial pneumonia: Plan: -Chills prior to admission, no fevers, no cough, WBC elevated. -CXR with atelectasis vs interstitial thickening -COVID negative -Procalcitonin negative on 10/02 -leukocytosis now resolved, was weaned off O2 but now back on post-op -Continue ceftriaxone x 5 day course through 10/07, completed 3 day course of azithromycin 500mg -has a h/o C. diff, +probiotics (8) History of multiple strokes: Plan: -bilateral cerebellar and basal ganglia strokes occurred perioperatively after hip fracture in 2019. These were not thought to possibly be embolic versus related to severe postoperative anemia -She never had any evidence of atrial fibrillation -Then with TIA and expressive aphasia in 2021. 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 She wishes to continue this during her hospital stay - she used to be on Ambien which was discontinued by PCP (12) Anemia: Plan: -Hemoglobin mildly low but stable from previous at 11 on admission -now drop to 9 s/p surgery from acute blood loss anemia, stable 3/3 -Normocytic -Fe studies show Fe deficiency with transferrin sat of 8% -Follow CBC - Venofer x3 -B12 levels borderline low in 2019, folate normal then -Continue B12 supplementation (13) Osteoporosis: Plan: - brought in Boniva from home, will wait till she is able to sit up and remain upright for 30 min and drinks full glass of water (14) Multi-infarct dementia: Plan: noted supportive care Plan: VTE Prophylaxis -SCDs only given spine surgery Disposition -contiued stay, expect she will stay here at least 3 to 5 days postoperatively for recovery and then will need rehab. Anticipate medical downgrade if continuing to do well through the day Admission and Anticipated Discharge Date Admission Date: October 02, 2021 Subjective Seen at bedside. Patient laying in bed, pleasant and conversational but reports does have at least moderate back pain which seems to improve when she gets her pain medicines. Has not tried getting out of bed today/recently. Anticipate out of bed to chair with TLSO, patient agreeable to this. Discussed that after movement to chair would advance physical therapy and will likely require placement, patient expresses an understanding of this but is concerned about her pain. She is frustrated that "age catches up to us, I never expected to have another back surgery ". Denies chest pain, chest pressure, shortness of breath, difficulty breathing, lightheadedness, dizziness, fever, chills. +h/a in the sinus area. Review of Systems Review of Systems: All systems reviewed & are unremarkable except as noted in Subjective Physical Exam Physical Exam: General: A&Ox3. NAD. Cooperative. HEENT: Atraumatic, normocephalic. Pulm: CTAB A&P. -wheezes, -rales, -rhonchi. Symmetrical chest rise. No increase in work of breathing. No respiratory distress. Cardiac: RRR, -mrg. Radial pulses intact and symmetrical. Abdominal: Nontender, nondistended, soft. BS present. Extremities: Ankle dorsiflexion/plantarflexion intact bilaterally with slightly increased strength in left compared to right. Sensation of soft touch intact in feet bilaterally without asymmetry. PT pulse intact bilaterally. Egg Trayer strength intact bilaterally. Lumbar dressing in place C/C/I CHELE drain in place scant serosanguineous output. Results & Data Results & Data ([facility]) Vital Signs (Past 12 Hours) Vital Signs Temp Pulse Pulse Resp BP Pulse Ox 10/05/21 11:26 36.8 C 75 20 129/72 93 10/05/21 07:42 70 10/05/21 07:20 36.5 C 71 20 165/73 H 100 10/05/21 04:00 36.3 C L 71 18 154/93 H 95 PG Care Time/CCT Total # of Minutes Spent Total Time Spent with Patient: Total time spent is greater than 50% in coordination of care (as documented) at patient's floor/unit and/or counseling patient: Coding Level of Care Code 33212 Subseq Hosp Care Lvl 2 Diagnoses Lumbar compression fracture S32.000A Bilateral leg pain M79.604; M79.605 Constipation K59.00 Hypoxia R09.02 Pulmonary edema J81.1 Elevated troponin R77.8 Bacterial pneumonia J15.9 History of multiple strokes Z86.73 Anxiety and depression F41.9; F32.9 Acid reflux K21.9 Insomnia G47.00 Anemia D64.9 Osteoporosis M81.0 Multi-infarct dementia F01.51 Dementia behavioral disturbance: with behavioral disturbance (1) Multi-infarct dementia Dementia behavioral disturbance: with behavioral disturbance Qualified Code(s): F01.51 - Vascular dementia with behavioral disturbance
[2021-10-05] MEDS: cefTRIAXone SODIUM 1,000 MG in DEXTROSE 5% 50 ML IV SCH (17:01)
[2021-10-05] MEDS: DOCUSATE SODIUM/SENNA 50/8.6MG TAB PO SCH (20:40)
[2021-10-05] MEDS: MELATONIN 3 MG TAB PO PRN (20:42)
[2021-10-05] MEDS: diphenhydrAMINE Capsule 25 MG CAP PO SCH (20:44)
[2021-10-06] MEDS ORDERED: IBANDRONATE 150 MG PO SCH (06:00)
[2021-10-06] MEDS ORDERED: POTASSIUM CHLORIDE CRTAB 20 MEQ TABCR PO STA (07:27)
[2021-10-06] MEDS: ACETAMINOPHEN 500 MG TAB PO SCH ×3 (08:06→22:08)
[2021-10-06] MEDS: oxyCODONE HCL IR 5 MG TAB (IMMEDIATE RELEASE) PO PRN (08:06)
[2021-10-06 08:07] LABS: Basophils # (auto) 0.03 K/uL (0-0.2); Basophils % (auto) 0.4 %; Eosinophils # (auto) 0.28 K/uL (0-0.5); Eosinophils % (auto) 3.8 %; Hematocrit (blood only) 31.8 % (37-47); Hemoglobin 10.1 g/dL (12.0-16.0); Immature Granulocytes # (auto) 0.04 K/uL (0.00-0.02); Immature Granulocytes % (auto) 0.5 %; Lymphocytes # (auto) 1.31 K/uL (1.2-3.4); Lymphocytes % (auto) 17.8 %; Mean Corpuscular Hemoglobin 28.7 pg (25-34); Mean Corpuscular Hgb Conc 31.8 g/dL (32-36); Mean Corpuscular Volume 90.3 fL (80-100); Mean Platelet Volume 9.2 fL (7.4-10.4); Monocytes # (auto) 0.64 K/uL (0.11-0.59); Monocytes % (auto) 8.7 %; Neutrophils # (auto) 5.06 K/uL (1.4-6.5); Neutrophils % (auto) 68.8 %; Platelet Count 260 K/uL (130-400); RDW Coefficient of Variation 13.8 % (11.5-14.5); RDW Standard Deviation 45.3 fL (36.4-46.3); Red Blood Count 3.52 M/uL (4.2-5.4); White Blood Count 7.36 K/uL (4.8-10.8)
[2021-10-06] MEDS: IRON SUCROSE 300 MG in SODIUM CHLORIDE 0.9% 250 ML IV SCH (08:07)
[2021-10-06] MEDS: ATORVASTATIN 40 MG TAB PO SCH (08:07)
[2021-10-06] MEDS: MAGNESIUM HYDROXIDE SUSP 30 ML UDC PO PRN (08:07)
[2021-10-06] MEDS: CLOPIDOGREL BISULFATE 75 MG TAB PO SCH (08:08)
[2021-10-06] MEDS: CYANOCOBALAMIN (B-12) 500 MCG TABLET PO SCH (08:08)
[2021-10-06] MEDS: LIDOCAINE 5% 1 PATCH TD SCH (08:08)
[2021-10-06] MEDS: PANTOprazole 40 MG TAB PO SCH (08:08)
[2021-10-06] MEDS: SACCHAROMYCES BOULARDII 250 MG CAP PO SCH (08:08)
[2021-10-06] MEDS: DULoxetine HCL 30 MG CAP PO SCH ×2 (08:08→22:07)
[2021-10-06] MEDS: CALCIUM 600MG + VIT D 400 IU TAB PO SCH ×2 (08:09→22:08)
[2021-10-06] MEDS: POTASSIUM CHLORIDE CRTAB 20 MEQ TABCR PO SCH (08:11)
[2021-10-06 08:30] LABS: BUN Creatinine Ratio 22.9 (10-20); Calcium 8.2 mg/dl (8.5-10.1); Creatinine Clr Calc Pharmacy 102.2 ml/min; Est GFR (African American) 111.2 ml/min; Potassium 3.5 mmol/L (3.5-5.1)
[2021-10-06] MEDS: traMADol HCL 50 MG TABLET PO PRN ×2 (11:18→18:08)
--- NOTE | 2021-10-06 12:07 | Orthopedic Progress Note ---
Date of Service October 06, 2021 Assessment & Plan (1) Lumbar burst fracture: Plan: She may begin bed to chair transfers and ambulation as tolerated physical therapy. We will await physical therapy's input determine whether she is a candidate for rehab. Admission and Anticipated Discharge Date Admission Date: October 02, 2021 Subjective Back pain controlled. No leg pain. Was able to tolerate sitting up beside the bed yesterday. Physical Exam Physical Exam: On exam patient is good strength testing appears comfortable. Results & Data ([facility]) Vital Signs (Past 12 Hours) Vital Signs Temp Pulse Pulse Resp BP BP Pulse Ox 10/06/21 10:53 36.9 C 84 18 138/84 91 10/06/21 08:00 80 10/06/21 07:15 37.2 C 84 20 152/81 H 96 10/06/21 04:00 36.9 C 76 18 138/82 93
--- NOTE | 2021-10-06 13:22 | Hospitalist Progress Note ---
Date of Service October 06, 2021 Assessment & Plan (1) Lumbar compression fracture: Plan: Lumbar compression fracture, history of Cefanex prior spinal surgeries Patient presented with a fall and a burst fracture of the L-spine and 3 vertebrae, unstable -Acetaminophen 1g PO TID -Avoid NSAIDs due to history of recurrent strokes -s/p posterior spinal fusion L4-S1 and kyphoplasty L5 vertebral body on 10/03. Unfortunately, Dr. Palacios was not able to place rods due to significantly brittle bones -Selby and JPs drain remain in place -Hgb did drop to 9.8 with some acute blood loss anemia, stable at 9.7 today -continue Oxycodone 5-10mg PO Q4H PRN for breakthrough pain -continue IV dilaudid prn severe pain -post op care as per Ortho Continue regular diet -dc IVFs History of postop CVA and delirium, patient currently doing well and mentating normally 3/3 Unable to tolerate movement with brace yesterday evening. Is awaiting PT/OT, then placement per recommendations. Medically stable, antiplatelet resumed, pending disposition recommendations at this time (2) Bilateral leg pain: Plan: -Suspect most likely secondary to her back-has been chronic for many months at least she thinks, exacerbated by recent fall but no new cauda equina suspected. -US arterial doppler to r/o PAD negative except slow flow in Left post tibial artery -Now improved post-op - continue Cymbalta and other pain medication as above (3) Constipation: Plan: -No BM since day of admission and has h/o severe chronic constipation -No abd pain -continue MiraLAX q6h -cont senna/docusate -give bisacodyl 5mg po x 1 now -Dulcolax as needed [facility] if no BM with above (4) Hypoxia: Plan: -Suspect secondary to pulmonary edema +/- PNA below -Aim O2 sats > 94%, wean as able (5) Pulmonary edema: Plan: -Lasix 20mg IV x 1 given on admission -TTE to assess for cardiomyopathy despite recently taken there has been an acute change in her clinical state--> normal -Daily weight -Strict I&Os -continue to treat for PNA (6) Elevated troponin: Plan: -No chest pain or shortness of breath to suggest ACS -troponin 0.2 and then trended downward, no ischemic changes on ECG, no CP -ECHO no WMAs -c/w demand ischemia (7) Bacterial pneumonia: Plan: -Chills prior to admission, no fevers, no cough, WBC elevated. -CXR with atelectasis vs interstitial thickening -COVID negative -Procalcitonin negative on 10/02 -leukocytosis now resolved, was weaned off O2 but now back on post-op -Continue ceftriaxone x 5 day course through 10/07, completed 3 day course of azithromycin 500mg -has a h/o C. diff, +probiotics (8) History of multiple strokes: Plan: -bilateral cerebellar and basal ganglia strokes occurred perioperatively after hip fracture in 2018. These were not thought to possibly be embolic versus related to severe postoperative anemia -She never had any evidence of atrial fibrillation -Then with TIA and expressive aphasia in 2021. 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 She wishes to continue this during her hospital stay - she used to be on Ambien which was discontinued by PCP (12) Anemia: Plan: -Hemoglobin mildly low but stable from previous at 11 on admission -now drop to 9 s/p surgery from acute blood loss anemia, stable 3/3 -Normocytic -Fe studies show Fe deficiency with transferrin sat of 8% -Follow CBC - Venofer x3 -B12 levels borderline low in 2019, folate normal then -Continue B12 supplementation (13) Osteoporosis: Plan: -Patient tolerated Boniva yesterday with a full glass of water and sitting up (14) Multi-infarct dementia: Plan: noted supportive care Plan: VTE Prophylaxis -SCDs only given spine surgery Disposition- continued stay, expect she will stay here at least 3 to 5 days postoperatively for recovery and then will need rehab. Downgraded to medical as doing well Admission and Anticipated Discharge Date Admission Date: October 02, 2021 Subjective Seen at bedside this morning. Patient reports recently saw Dr. Palacios, no new updates. She was up to chair today and yesterday with some pain in her back, some pain at the pressure points of her brace. Continues to have some low back pain in her surgical site, otherwise no pain in extremities or radiating. Tolerated sitting up mostly well for her bisphosphonate yesterday. No nausea, vomiting, diarrhea, appetite change today. Is somewhat bloated and got MiraLAX yesterday, has not yet had a bowel movement but with increased bowel sounds. No shortness of breath. No lightheadedness/dizziness/focal neurologic change. Awaiting PT/OT and placement. Patient expresses a preference to return home with home health PT, but understands she may need rehab as well. Review of Systems Review of Systems: All systems reviewed & are unremarkable except as noted in Subjective Physical Exam Physical Exam: General: A&Ox3. NAD. Cooperative. HEENT: Atraumatic, normocephalic. Vision and hearing grossly intact. Pulm: CTAB A&P. -wheezes, -rales, -rhonchi. Symmetrical chest rise. No increase in work of breathing. No respiratory distress. Cardiac: RRR, -mrg. Radial pulses intact and symmetrical. Abdominal: Nontender, nondistended, soft. BS present. Extremities: Ankle dorsiflexion/plantarflexion intact bilaterally with slightly increased strength in left compared to right. Sensation of soft touch intact in feet bilaterally without asymmetry. PT pulse intact bilaterally. Apron Trimmer strength intact bilaterally. Lumbar dressing in place C/C/I with some tenderness at lateral border but no erythema. Results & Data Results & Data ([facility]) Vital Signs (Past 12 Hours) Vital Signs Temp Pulse Pulse Resp BP BP Pulse Ox 10/06/21 10:53 36.9 C 84 18 138/84 91 10/06/21 08:00 80 10/06/21 07:15 37.2 C 84 20 152/81 H 96 10/06/21 04:00 36.9 C 76 18 138/82 93 PG Care Time/CCT Total # of Minutes Spent Total Time Spent with Patient: Total time spent is greater than 50% in coordination of care (as documented) at patient's floor/unit and/or counseling patient: Coding Level of Care Code 45262 Subseq Hosp Care Lvl 2 Diagnoses Lumbar compression fracture S32.000A Bilateral leg pain M79.604; M79.605 Constipation K59.00 Hypoxia R09.02 Pulmonary edema J81.1 Elevated troponin R77.8 Bacterial pneumonia J15.9 History of multiple strokes Z86.73 Anxiety and depression F41.9; F32.9 Acid reflux K21.9 Insomnia G47.00 Anemia D64.9 Osteoporosis M81.0 Multi-infarct dementia F01.51 Dementia behavioral disturbance: with behavioral disturbance (1) Multi-infarct dementia Dementia behavioral disturbance: with behavioral disturbance Qualified Code(s): F01.51 - Vascular dementia with behavioral disturbance
[2021-10-06] MEDS: cefTRIAXone SODIUM 1,000 MG in DEXTROSE 5% 50 ML IV SCH (18:09)
[2021-10-06] MEDS: DOCUSATE SODIUM/SENNA 50/8.6MG TAB PO SCH (22:08)
[2021-10-06] MEDS: diphenhydrAMINE Capsule 25 MG CAP PO SCH (22:08)
[2021-10-06] MEDS: MELATONIN 3 MG TAB PO PRN (22:08)
[2021-10-07] MEDS: traMADol HCL 50 MG TABLET PO PRN (05:39)
[2021-10-07] MEDS: CLOPIDOGREL BISULFATE 75 MG TAB PO SCH (07:32)
[2021-10-07] MEDS: CYANOCOBALAMIN (B-12) 500 MCG TABLET PO SCH (07:32)
[2021-10-07] MEDS: DULoxetine HCL 30 MG CAP PO SCH ×2 (07:32→21:13)
[2021-10-07] MEDS: ATORVASTATIN 40 MG TAB PO SCH (07:32)
[2021-10-07] MEDS: PANTOprazole 40 MG TAB PO SCH (07:32)
[2021-10-07] MEDS: CALCIUM 600MG + VIT D 400 IU TAB PO SCH ×2 (07:33→21:13)
[2021-10-07] MEDS: SACCHAROMYCES BOULARDII 250 MG CAP PO SCH (07:33)
[2021-10-07] MEDS: LIDOCAINE 5% 1 PATCH TD SCH (07:33)
[2021-10-07] MEDS: ACETAMINOPHEN 500 MG TAB PO SCH ×3 (07:36→21:12)
[2021-10-07] MEDS: POTASSIUM CHLORIDE CRTAB 20 MEQ TABCR PO SCH (07:37)
[2021-10-07] MEDS: IRON SUCROSE 300 MG in SODIUM CHLORIDE 0.9% 250 ML IV SCH (07:37)
[2021-10-07] MEDS: oxyCODONE HCL IR 5 MG TAB (IMMEDIATE RELEASE) PO PRN ×3 (09:23→21:52)
[2021-10-07] MEDS: HYDROmorphone INJ 0.5 MG/0.5 ML SYR IV PRN (11:39)
--- NOTE | 2021-10-07 16:22 | Hospitalist Progress Note ---
Date of Service October 07, 2021 Assessment & Plan (1) Lumbar compression fracture: Plan: Lumbar compression fracture, history of Cefanex prior spinal surgeries Patient presented with a fall and a burst fracture of the L-spine and 3 vertebrae, unstable -Acetaminophen 1g PO TID -Avoid NSAIDs due to history of recurrent strokes -s/p posterior spinal fusion L4-S1 and kyphoplasty L5 vertebral body on 10/03. Unfortunately, Dr. Palacios was not able to place rods due to significantly brittle bones -Selby and JPs drain remain in place -Hgb did drop to 9.8 with some acute blood loss anemia, stable at 9.7 today -continue Oxycodone 5-10mg PO Q4H PRN for breakthrough pain -continue IV dilaudid prn severe pain -post op care as per Ortho Continue regular diet -dc IVFs History of postop CVA and delirium, patient currently doing well and mentating normally 10/05 Patient remains medically stable, but with increased pain in her right hip and extreme difficulty even ambulating to the chair with assistance. PT recommending SNF, x-ray of the hip for assessment as below giving disproportionate increased pain. CM following. (2) Bilateral leg pain: Plan: -Suspect most likely secondary to her back-has been chronic for many months at least she thinks, exacerbated by recent fall but no new cauda equina suspected. -US arterial doppler to r/o PAD negative except slow flow in Left post tibial artery - continue Cymbalta and other pain medication as above Patient does report severe worsening pain in her right hip at the lateral hip spreading into the mid thigh. Also has back pain at her surgical site, but on right hip internal/external rotation passive she has disproportionate increase in her hip pain and apprehension of motion. Suspect that this is also due to her back and worsened in the thigh due to history of fracture, will obtain an XR hip given asymmetry and acute worsening (3) Constipation: Plan: -No BM since day of admission and has h/o severe chronic constipation -No abd pain -continue MiraLAX q6h -cont senna/docusate -give bisacodyl 5mg po x 1 now -Dulcolax as needed [place] if no BM with above (4) Hypoxia: Plan: -Suspect secondary to pulmonary edema +/- PNA below -Aim O2 sats > 94%, wean as able (5) Pulmonary edema: Plan: -Lasix 20mg IV x 1 given on admission -TTE normal -Daily weight -Strict I&Os -continue to treat for PNA (6) Elevated troponin: Plan: -No chest pain or shortness of breath to suggest ACS -troponin 0.2 and then trended downward, no ischemic changes on ECG, no CP -ECHO no WMAs -c/w demand ischemia (7) Bacterial pneumonia: Plan: -Chills prior to admission, no fevers, no cough, WBC elevated. -CXR with atelectasis vs interstitial thickening -COVID negative -Procalcitonin negative on 10/02 -leukocytosis now resolved, was weaned off O2 but now back on post-op -Rocephin course completed 5 days 10/07, completed 3 day course of azithromycin 500mg -has a h/o C. diff, +probiotics (8) History of multiple strokes: Plan: -bilateral cerebellar and basal ganglia strokes occurred perioperatively after hip fracture in 2018. These were not thought to possibly be embolic versus related to severe postoperative anemia -She never had any evidence of atrial fibrillation -Then with TIA and expressive aphasia in 2021. -Has PFO, HOlter monitor x 30 days negative for occult Afib in early 2021 Continue atorvastatin Plavix held for 48 hours, then resumed (9) Anxiety and depression: Plan: Her anxiety is worsened by acute medical situation Continue duloxetine avoid benzos given underlying dementia and h/o delirium post-op (10) Acid reflux: Plan: Continue pantoprazole (11) Insomnia: Plan: Discussed fdc risks to continued diphenhydramine use - including increased risk of falls. She wishes to continue this during her hospital stay - she used to be on Ambien which was discontinued by PCP (12) Anemia: Plan: -Hemoglobin mildly low but stable from previous at 11 on admission -now drop to 9 s/p surgery from acute blood loss anemia, stable 3/3 -Normocytic -Fe studies show Fe deficiency with transferrin sat of 8% -Follow CBC - Venofer x3 -B12 levels borderline low in 2019, folate normal then -Continue B12 supplementation (13) Osteoporosis: Plan: -Patient tolerated Boniva yesterday with a full glass of water and sitting up (14) Multi-infarct dementia: Plan: noted supportive care Plan: VTE Prophylaxis -SCDs only given spine surgery Disposition- continued stay,.. Patient with increased pain and difficulty even ambulating to the trial, extremely limited engagement with physical therapy nearly dependent. Recommending SNF at this time, continue to follow and placement pending. Admission and Anticipated Discharge Date Admission Date: October 02, 2021 Subjective That he is seen at the bedside today. She reports she was very frustrated by her pain and attempts to mobilize her to the chair today. She reports that she felt like she could only be up to the chair for 10 minutes due to pain but they left her for much longer than this. "I try not to use the 10 number, but the pain was 10 out of 10 ". Continues to ache although somewhat tolerable laying in bed, does have right and mid lateral thigh which is worsened on internal and external rotation. Denies fever, chills, sweats. No numbness tingling in the feet. Review of Systems Review of Systems: All systems reviewed & are unremarkable except as noted in Subjective Physical Exam Physical Exam: General: A&Ox3. NAD. Cooperative. HEENT: Atraumatic, normocephalic. Vision and hearing grossly intact. Pulm: CTAB A&P. -wheezes, -rales, -rhonchi. Symmetrical chest rise. No increase in work of breathing. No respiratory distress. Cardiac: RRR, -mrg. Radial pulses intact and symmetrical. Abdominal: Nontender, nondistended, soft. BS present. Extremities: Ankle dorsiflexion/plantarflexion intact bilaterally with slightly increased strength in left compared to right. Sensation of soft touch intact in feet bilaterally without asymmetry. PT pulse intact bilaterally. Instrument Maker And Repairer strength intact bilaterally. Right hip with pain at the trochanter spreading down to mid thigh, pain is worsened by sitting up, standing, and with attempted passive internal/external rotation. Patient has some chronic pain in her back surgical site which is unchanged, this does not change with internal rotation although the pain in her hip discussed. Results & Data Results & Data ([facility]) Vital Signs (Past 12 Hours) Vital Signs Temp Pulse Resp BP Pulse Ox 10/07/21 15:55 36.8 C 79 19 157/82 H 99 10/07/21 11:27 36.6 C 85 19 162/101 H 92 10/07/21 07:42 36.4 C L 64 18 146/82 H 94 PG Care Time/CCT Total # of Minutes Spent Total Time Spent with Patient: Total time spent is greater than 50% in coordination of care (as documented) at patient's floor/unit and/or counseling patient: Coding Level of Care Code 42451 Subseq Hosp Care Lvl 2 Diagnoses Lumbar compression fracture S32.000A Bilateral leg pain M79.604; M79.605 Constipation K59.00 Hypoxia R09.02 Pulmonary edema J81.1 Elevated troponin R77.8 Bacterial pneumonia J15.9 History of multiple strokes Z86.73 Anxiety and depression F41.9; F32.9 Acid reflux K21.9 Insomnia G47.00 Anemia D64.9 Osteoporosis M81.0 Multi-infarct dementia F01.51 Dementia behavioral disturbance: with behavioral disturbance (1) Multi-infarct dementia Dementia behavioral disturbance: with behavioral disturbance Qualified Code(s): F01.51 - Vascular dementia with behavioral disturbance
--- NOTE | 2021-10-07 18:21 | XRay Report ---
XR hip RT 2V w pelvis CLINICAL HISTORY: pain, restricted movement, hx fxr TECHNIQUE: 2 views of the right hip and single frontal view of the pelvis were obtained. Comparison: None available at the time of this dictation. FINDINGS: There is no evidence of an acute fracture. The alignment is anatomic. There is a total right hip arth roplasty. Extensive large bowel gas is seen. IMPRESSION: No evidence of acute osseous injury. ACT 112: Negative or not required by law. Electronically signed by: Colton Cedillo M.D. 10/07/2021 6:19 PM
[2021-10-07] MEDS: DOCUSATE SODIUM/SENNA 50/8.6MG TAB PO SCH (21:13)
[2021-10-07] MEDS: diphenhydrAMINE Capsule 25 MG CAP PO SCH ×3 (21:13→23:23)
[2021-10-07] MEDS: MELATONIN 3 MG TAB PO PRN (23:01)
[2021-10-08] MEDS: PANTOprazole 40 MG TAB PO SCH (07:19)
[2021-10-08] MEDS: CALCIUM 600MG + VIT D 400 IU TAB PO SCH ×2 (07:19→20:37)
[2021-10-08] MEDS: DULoxetine HCL 30 MG CAP PO SCH ×2 (07:19→20:38)
[2021-10-08] MEDS: ATORVASTATIN 40 MG TAB PO SCH (07:19)
[2021-10-08] MEDS: SACCHAROMYCES BOULARDII 250 MG CAP PO SCH (07:20)
[2021-10-08] MEDS: CYANOCOBALAMIN (B-12) 500 MCG TABLET PO SCH (07:20)
[2021-10-08] MEDS: CLOPIDOGREL BISULFATE 75 MG TAB PO SCH (07:20)
[2021-10-08] MEDS: LIDOCAINE 5% 1 PATCH TD SCH (07:20)
[2021-10-08] MEDS: POTASSIUM CHLORIDE CRTAB 20 MEQ TABCR PO SCH (07:23)
[2021-10-08] MEDS: oxyCODONE HCL IR 5 MG TAB (IMMEDIATE RELEASE) PO PRN ×3 (07:39→22:33)
[2021-10-08] MEDS: ACETAMINOPHEN 500 MG TAB PO SCH ×3 (08:10→20:37)
--- NOTE | 2021-10-08 11:46 | Orthopedic Progress Note ---
Date of Service October 08, 2021 Assessment & Plan (1) Lumbar burst fracture: Plan: This time is quite concerned that she has severe osteoporosis and while I attempted to stabilize a fracture with a kyphoplasty this may not be enough to provide adequate fixation. Her symptoms could be continued collapse of the bone when in the upright axial load position. Subsequently will maintain bedrest today. She may sit up as tolerated. We will obtain a CAT scan lumbar spine. Admission and Anticipated Discharge Date Admission Date: October 02, 2021 Subjective Patient unfortunately did not do well yesterday when in the chair. She describes her pain at a 10 out of 10 in the back and radiating to the hips. This morning she is comfortable lying supine. She states she is most comfortable in this position. She denies any pain in the legs this morning. Physical Exam Physical Exam: On exam she is excellent range of motion to the bilateral knees and hips without pain. Sensory is intact. Good strength testing. I did have her sit up with the assistance of physical therapist this morning. This caused significant discomfort in lumbar spine. Results & Data ([facility]) Vital Signs (Past 12 Hours) Vital Signs Temp Pulse Resp BP Pulse Ox 10/08/21 11:20 37.1 C 82 16 166/88 H 95 10/08/21 07:33 37.2 C 74 18 173/85 H 95 10/08/21 02:43 36.8 C 74 18 169/87 H 95
[2021-10-08] MEDS ORDERED: LAVAGE SOLUTION 4000ML PO ONE (12:30)
--- NOTE | 2021-10-08 13:33 | CT Scan Report ---
CT lumbar spine wo con CLINICAL HISTORY: Postoperative pain. Status post kyphoplasty COMPARISON STUDY: 09/30/2021 CT DOSE: 819.73 mGy.cm TECHNIQUE: Standard CT of the Lumbar Spine was performed without IV contrast. A dose lowering techni que was utilized adhering to the principles of ALARA. FINDINGS: Bones: The bones are osteopenic. Compared to the previous study, the patient is status post interval kyphoplasty at L5 on the right. No acute abnormality is seen. The vertebral bodies are in anatomic al ignment. Disc spaces: Marked disc space narrowing is again seen from L2 through L5. Facet joints: Degenerative facet joint disease and effusion are again seen bilaterally. The sacroilia c joints are intact bilaterally. Soft tissues: The prevertebral soft tissues are within normal limits. IMPRESSION: 1. Compared to the previous examination, there has been interval kyphoplasty of the L5 vertebral body on the right for acute fracture. 2. No new fractures are identified. 3. Degenerative disc and degenerative facet joint disease are again seen bilaterally. ACT 112: Negative or not required by law. Electronically signed by: Josiah Romero M.D. 10/08/2021 1:31 PM
--- NOTE | 2021-10-08 20:19 | Hospitalist Progress Note ---
Date of Service October 08, 2021 Assessment & Plan (1) Lumbar compression fracture: Plan: Lumbar compression fracture, history of Cefanex prior spinal surgeries Patient presented with a fall and a burst fracture of the L-spine and 3 vertebrae, unstable -Acetaminophen 1g PO TID -Avoid NSAIDs due to history of recurrent strokes -s/p posterior spinal fusion L4-S1 and kyphoplasty L5 vertebral body on 10/03. Unfortunately, Dr. Palacios was not able to place rods due to significantly brittle bones -Selby and JPs drain remain in place -Hgb did drop to 9.8 with some acute blood loss anemia, stable at 10.1 today -continue Oxycodone 5-10mg PO Q4H PRN for breakthrough pain -continue IV dilaudid prn severe pain -post op care as per Ortho Continue regular diet Patient remains medically stable, however not yet had a BM since admission therefore will give 2000ml of Golytely prep and then MiraLAX 17g TID until she has a large BM. Discussed concern regarding hip with Dr Palacios today who feels pain all coming from her back therefore will avoid any advanced imaging. Patient back on bedrest pending CT of lumbar spine today. (2) Bilateral leg pain: Plan: -Suspect most likely secondary to her back-has been chronic for many months at least she thinks, exacerbated by recent fall but no new cauda equina suspected. -US arterial doppler to r/o PAD negative except slow flow in Left post tibial artery - continue Cymbalta and other pain medication as above (3) Constipation: Plan: -No BM since day of admission and has h/o severe chronic constipation -No abd pain -Dulcolax as needed [place] if no BM with above -2000ml Golyetely prep today followed by MiraLAX 17g TID until large BM (4) Hypoxia: Plan: -Suspect secondary to pulmonary edema +/- PNA below -Aim O2 sats > 94%, wean as able Resolved (5) Pulmonary edema: Plan: -Lasix 20mg IV x 1 given on admission -TTE normal -Daily weight -Strict I&Os -continue to treat for PNA (6) Elevated troponin: Plan: -No chest pain or shortness of breath to suggest ACS -troponin 0.2 and then trended downward, no ischemic changes on ECG, no CP -ECHO no WMAs -c/w demand ischemia (7) Bacterial pneumonia: Plan: -Chills prior to admission, no fevers, no cough, WBC elevated. -CXR with atelectasis vs interstitial thickening -COVID negative -Procalcitonin negative on 10/02 -leukocytosis now resolved, was weaned off O2 but now back on post-op -Rocephin course completed 5 days 10/07, completed 3 day course of azithromycin 500mg -has a h/o C. diff, +probiotics (8) History of multiple strokes: Plan: -bilateral cerebellar and basal ganglia strokes occurred perioperatively after hip fracture in 2019. These were not thought to possibly be embolic versus related to severe postoperative anemia -She never had any evidence of atrial fibrillation -Then with TIA and expressive aphasia in 2021. -Has PFO, Holter monitor x 30 days negative for occult Afib in early 2021 Continue atorvastatin Plavix held for 48 hours, then resumed (9) Anxiety and depression: Plan: Her anxiety is worsened by acute medical situation Continue duloxetine avoid benzos given underlying dementia and h/o delirium post-op (10) Acid reflux: Plan: Continue pantoprazole (11) Insomnia: Plan: Discussed nursing home risks to continued diphenhydramine use - including increased risk of falls. She wishes to continue this during her hospital stay - she used to be on Ambien which was discontinued by PCP (12) Anemia: Plan: -Hemoglobin mildly low but stable from previous at 11 on admission -now drop to 9 s/p surgery from acute blood loss anemia, stable 3/3 -Normocytic -Fe studies show Fe deficiency with transferrin sat of 8% -Follow CBC - Venofer x3 -B12 levels borderline low in 2018, folate normal then -Continue B12 supplementation (13) Osteoporosis: Plan: -Patient tolerated Boniva this admission with a full glass of water and sitting up (14) Multi-infarct dementia: Plan: noted supportive care Plan: VTE Prophylaxis -SCDs only given spine surgery Disposition- continued stay,.. Patient with increased pain and difficulty even ambulating to the trial, extremely limited engagement with physical therapy nearly dependent. Recommending SNF at this time, continue to follow and placement pending. Admission and Anticipated Discharge Date Admission Date: October 02, 2021 Subjective Ongoing severe back pain radiating down both legs when she was moved for the first time to the chair yesterday. Not yet had a BM since admission. Review of Systems Review of Systems: All systems reviewed & are unremarkable except as noted in Subjective Physical Exam Constitutional: WD/WN, vitals as above Eyes: + anicteric sclerae; normal pupil size Respiratory: normal respiratory effort, lungs clear to auscultation Cardiovascular: Rate/Rhythm: regular rate and regular rhythm Heart Sounds: normal S1 and normal S2; no murmur Extremities: normal capillary refill; no calf tenderness and no pedal edema Skin: no rashes, warm and dry Neurologic: moves all extremities and awake; no focal motor deficits (full power in b/l LE 5/5) and not confused Psychiatric: A+Ox3, euthymic affect Results & Data Results & Data ([facility]) Vital Signs (Past 12 Hours) Vital Signs Temp Pulse Resp BP Pulse Ox 10/08/21 19:45 36.9 C 90 18 159/80 H 97 10/08/21 15:18 36.9 C 87 18 148/86 H 94 10/08/21 11:20 37.1 C 82 16 166/88 H 95 PG Care Time/CCT Total # of Minutes Spent Total Time Spent with Patient: Total time spent is greater than 50% in coordination of care (as documented) at patient's floor/unit and/or counseling patient: Coding Level of Care Code 43307 Subseq Hosp Care Lvl 2 Diagnoses Lumbar compression fracture S32.000A Bilateral leg pain M79.604; M79.605 Constipation K59.00 Hypoxia R09.02 Pulmonary edema J81.1 Elevated troponin R77.8 Bacterial pneumonia J15.9 History of multiple strokes Z86.73 Anxiety and depression F41.9; F32.9 Acid reflux K21.9 Insomnia G47.00 Anemia D64.9 Osteoporosis M81.0 Multi-infarct dementia F01.51 Dementia behavioral disturbance: with behavioral disturbance (1) Multi-infarct dementia Dementia behavioral disturbance: with behavioral disturbance Qualified Code( s): F01.51 - Vascular dementia with behavioral disturbance
[2021-10-08] MEDS: DOCUSATE SODIUM/SENNA 50/8.6MG TAB PO SCH (20:38)
[2021-10-08] MEDS: POLYETHYLENE (MIRALAX) 17 GM PACK PO SCH (20:38)
[2021-10-08] MEDS: diphenhydrAMINE Capsule 25 MG CAP PO SCH (20:38)
[2021-10-08] MEDS: MELATONIN 3 MG TAB PO PRN (23:44)
[2021-10-09] MEDS: POTASSIUM CHLORIDE CRTAB 20 MEQ TABCR PO SCH (07:29)
[2021-10-09] MEDS: oxyCODONE HCL IR 5 MG TAB (IMMEDIATE RELEASE) PO PRN ×4 (07:29→20:23)
[2021-10-09] MEDS: CALCIUM 600MG + VIT D 400 IU TAB PO SCH ×2 (07:30→20:24)
[2021-10-09] MEDS: PANTOprazole 40 MG TAB PO SCH (07:30)
[2021-10-09] MEDS: CYANOCOBALAMIN (B-12) 500 MCG TABLET PO SCH (07:30)
[2021-10-09] MEDS: ATORVASTATIN 40 MG TAB PO SCH (07:31)
[2021-10-09] MEDS: CLOPIDOGREL BISULFATE 75 MG TAB PO SCH (07:31)
[2021-10-09] MEDS: DULoxetine HCL 30 MG CAP PO SCH ×2 (07:31→20:24)
[2021-10-09] MEDS: SACCHAROMYCES BOULARDII 250 MG CAP PO SCH (07:31)
[2021-10-09] MEDS: POLYETHYLENE (MIRALAX) 17 GM PACK PO SCH ×3 (07:32→20:19)
[2021-10-09] MEDS: LIDOCAINE 5% 1 PATCH TD SCH (07:32)
[2021-10-09] MEDS: ACETAMINOPHEN 500 MG TAB PO SCH ×5 (07:33→21:41)
--- NOTE | 2021-10-09 09:22 | Hospitalist Progress Note ---
Date of Service October 09, 2021 Assessment & Plan (1) Lumbar compression fracture: Plan: Lumbar compression fracture, history of seven prior spinal surgeries Patient presented with a fall and a burst fracture of the L-spine in 3 vertebrae, unstable -s/p posterior spinal fusion L4-S1 and kyphoplasty L5 vertebral body on 10/03. Unfortunately, Dr. Palacios was not able to place rods due to significantly brittle bones -CHELE drain remains in place -Hgb did drop to 9.8 with some acute blood loss anemia, stable at 10.7 today -having ongoing fairly significant pain post-op with OOB to chair on 10/08 -repeat CT L_spine 10/08 nothing acute -continue Oxycodone 5-10mg PO Q4H PRN for breakthrough pain -continue IV dilaudid prn severe pain -post op care as per Ortho -increase bowel regimen as no BM in 10 days and this is also contributing to pain Continue regular diet PT/OT (2) Bilateral leg pain: Plan: -Suspect most likely secondary to her back-has been chronic for many months at least she thinks, exacerbated by recent fall but no new cauda equina suspected. -US arterial doppler to r/o PAD negative except slow flow in Left post tibial artery - continue Cymbalta and other pain medication as above (3) Constipation: Plan: -No BM since day of admission and has h/o severe chronic constipation -No abd pain -did not finish GoLytely bowel prep-only drank 2 glasses and thought she was done, not helping. -continue Miralax q6, senna/docusate -add bisacodyl 10mg po x 1 now, Fleets enema x 1 now, and Magnesium citrate 1 bottle -if no improvement or BM in next 24 hrs, will consider Relistor as discussed with pt and her (4) Hypoxia: Plan: -Suspect secondary to pulmonary edema +/- PNA below now resolved (5) Pulmonary edema: Plan: -Lasix 20mg IV x 1 given on admission -TTE normal -Daily weight -Strict I&Os -continue to treat for PNA (6) Elevated troponin: Plan: -No chest pain or shortness of breath to suggest ACS -troponin 0.2 and then trended downward, no ischemic changes on ECG, no CP -ECHO no WMAs -c/w demand ischemia (7) Bacterial pneumonia: Plan: -Chills prior to admission, no fevers, no cough, WBC elevated. -CXR with atelectasis vs interstitial thickening -COVID negative -Procalcitonin negative on 10/02 -leukocytosis now resolved, now weaned off O2 -Rocephin course completed 5 days 10/07, completed 3 day course of azithromycin 500mg -has a h/o C. diff, +probiotics (8) History of multiple strokes: Plan: -bilateral cerebellar and basal ganglia strokes occurred perioperatively after hip fracture in 2018. These were not thought to possibly be embolic versus related to severe postoperative anemia -She never had any evidence of atrial fibrillation -Then with TIA and expressive aphasia in 2021. -Has PFO, Holter monitor x 30 days negative for occult Afib in early 2021 Continue atorvastatin Plavix held for 48 hours, then resumed (9) Anxiety and depression: Plan: Her anxiety is worsened by acute medical situation Continue duloxetine avoid benzos given underlying dementia and h/o delirium post-op (10) Acid reflux: Plan: Continue pantoprazole (11) Insomnia: Plan: Discussed skilled nursing risks to continued diphenhydramine use - including increased risk of falls. She wishes to continue this during her hospital stay - she used to be on Ambien which was discontinued by PCP (12) Anemia: Plan: -Hemoglobin mildly low but stable from previous at 11 on admission -now drop to 10 s/p surgery from acute blood loss anemia -Normocytic -Fe studies show Fe deficiency with transferrin sat of 8% -Follow CBC - Venofer x3 given -B12 levels borderline low in 2019, folate normal then -Continue B12 supplementation (13) Osteoporosis: Plan: -Patient tolerated Boniva this admission with a full glass of water and sitting up (14) Multi-infarct dementia: Plan: noted supportive care Plan: VTE Prophylaxis -SCDs only given spine surgery Disposition- continued stay,.. Patient with increased pain and difficulty even ambulating to the trial, extremely limited engagement with physical therapy nearly dependent. Recommending SNF at this time, continue to follow and placem ent pending. Admission and Anticipated Discharge Date Admission Date: October 02, 2021 Subjective Had severe pain in back yesterday with getting OOB to chair x 1 hour. Today pain is down to an 8/10 but has not been OOB. Taking oxycodone. Still no BM in 10 days and feels very distended in abdomen, no nausea but feels indigestion. Review of Systems Review of Systems: All systems reviewed & are unremarkable except as noted in HPI & below Physical Exam Constitutional: WD/WN, vitals as above Eyes: + anicteric sclerae Neck: trachea midline, no thyromegaly Respiratory: normal respiratory effort, lungs clear to auscultation Cardiovascular: RRR, no murmur, no edema Chest (Breasts): Chest: normal inspection of chest Gastrointestinal (Abdomen): normal bowel sounds, soft, nontender, no hepatosplenomegaly softly distended Musculoskeletal: Extremities: extremities normal to inspection; no cyanosis and no clubbing Skin: no rashes, warm and dry Neurologic: moves all extremities and awake; no focal motor deficits Psychiatric: A+Ox3, euthymic affect Lymphatic: no lymphedema Results & Data Results & Data ([facility]) Vital Signs (Past 12 Hours) Vital Signs Temp Pulse Pulse Resp BP BP Pulse Ox 10/09/21 07:17 36.8 C 79 20 168/86 H 93 10/08/21 23:07 37.0 C 73 18 159/113 H 95 Laboratory Results 10/09/21 10/09/21 Range/Units 09:58 09:58 WBC 8.89 (4.8-10.8) K/uL RBC 3.68 L (4.2-5.4) M/uL Hgb 10.7 L (12.0-16.0) g/dL Hct 33.0 L (37-47) % MCV 89.7 (80-100) fL MCH 29.1 (25-34) pg MCHC 32.4 (32-36) g/dL RDW Std Deviation 45.6 (36.4-46.3) fL RDW Coeff of [place]ou[place] 14.6 H (11.5-14.5) % Plt Count 387 (130-400) K/uL MPV 8.6 (7.4-10.4) fL Immature Gran % (Auto) 0.4 % Neut % (Auto) 76.4 % Lymph % (Auto) 12.4 % [place] % (Auto) 8.5 % Eos % (Auto) 2.1 % Baso % (Auto) 0.2 % Neut # (Auto) 6.78 H (1.4-6.5) K/uL Lymph # (Auto) 1.10 L (1.2-3.4) K/uL [place] # (Auto) 0.76 H (0.11-0.59) K/uL Eos # (Auto) 0.19 (0-0.5) K/uL Baso # (Auto) 0.02 (0-0.2) K/uL Immature Gran # (Auto) 0.04 H (0.00-0.02) K/uL Sodium 138 (136-145) mmol/L Potassium 3.4 L (3.5-5.1) mmol/L Chloride 102 (98-107) mmol/L Carbon Dioxide 28 (21-32) mmol/L Anion Gap 8 (3-11) BUN 10 (6-23) mg/dl Creatinine 0.57 L (0.6-1.2) mg/dl Est Cr Clr Drug Dosing 86.0 ml/min Est GFR ( Amer) 105.1 ml/min Est GFR (Non-Af Amer) 90.7 ml/min BUN/Creatinine Ratio 17.5 (10-20) Glucose 108 H (70-99(Fasting)) mg/dl Calcium 9.3 (8.5-10.1) mg/dl Magnesium 2.1 (1.7-2.4) mg/dl Total Bilirubin 0.6 (0.2-1.0) mg/dl AST 20 (13-39) U/L ALT 12 (7-52) U/L Alkaline Phosphatase 88 (34-104) U/L Total Protein 6.7 (6.0-8.3) gm/dl Albumin 3.8 (3.4-5.0) gm/dl Globulin 2.9 (2.5-4.0) gm/dl Albumin/Globulin Ratio 1.3 (0.9-2) PG Care Time/CCT Total # of Minutes Spent Total Time Spent with Patient: Total time spent is greater than 50% in coordination of care (as documented) at patient's floor/unit and/or counseling patient: Coding Level of Care Code 67679 Subseq Hosp Care Lvl 2 Diagnoses Lumbar compression fracture S32.000A Bilateral leg pain M79.604; M79.605 Constipation K59.00 Hypoxia R09.02 Pulmonary edema J81.1 Elevated troponin R77.8 Bacterial pneumonia J15.9 History of multiple strokes Z86.73 Anxiety and depression F41.9; F32.9 Acid reflux K21.9 Insomnia G47.00 Anemia D64.9 Osteoporosis M81.0 Multi-infarct dementia F01.51 Dementia behavioral disturbance: with behavioral disturbance (1) Multi-infarct dementia Dementia behavioral disturbance: with behavioral disturbance Qualified Code(s): F01.51 - Vascular dementia with behavioral disturbance
[2021-10-09 10:23] LABS: Basophils # (auto) 0.02 K/uL (0-0.2); Basophils % (auto) 0.2 %; Eosinophils # (auto) 0.19 K/uL (0-0.5); Eosinophils % (auto) 2.1 %; Hemoglobin 10.7 g/dL (12.0-16.0); Immature Granulocytes # (auto) 0.04 K/uL (0.00-0.02); Immature Granulocytes % (auto) 0.4 %; Lymphocytes % (auto) 12.4 %; Mean Corpuscular Hemoglobin 29.1 pg (25-34); Mean Corpuscular Hgb Conc 32.4 g/dL (32-36); Mean Corpuscular Volume 89.7 fL (80-100); Mean Platelet Volume 8.6 fL (7.4-10.4); Monocytes # (auto) 0.76 K/uL (0.11-0.59); Monocytes % (auto) 8.5 %; Neutrophils # (auto) 6.78 K/uL (1.4-6.5); Neutrophils % (auto) 76.4 %; Platelet Count 387 K/uL (130-400); RDW Coefficient of Variation 14.6 % (11.5-14.5); RDW Standard Deviation 45.6 fL (36.4-46.3); Red Blood Count 3.68 M/uL (4.2-5.4); White Blood Count 8.89 K/uL (4.8-10.8)
[2021-10-09 10:48] LABS: Albumin Globulin Ratio 1.3 (0.9-2); Albumin Level 3.8 gm/dl (3.4-5.0); BUN Creatinine Ratio 17.5 (10-20); Bilirubin,Total 0.6 mg/dl (0.2-1.0); Calcium 9.3 mg/dl (8.5-10.1); Est GFR (African American) 105.1 ml/min; Est GFR (Non-African American) 90.7 ml/min; Globulin 2.9 gm/dl (2.5-4.0); Magnesium 2.1 mg/dl (1.7-2.4); Potassium 3.4 mmol/L (3.5-5.1); Total Protein 6.7 gm/dl (6.0-8.3)
[2021-10-09] MEDS ORDERED: POTASSIUM CHLORIDE CRTAB 20 MEQ TABCR PO STA (12:02)
[2021-10-09] MEDS ORDERED: bisacodyL 5 MG TABEC PO ONE (15:25)
[2021-10-09] MEDS ORDERED: MAGNESIUM CITRATE 296 ML/BTL PO STA (15:25)
[2021-10-09] MEDS: diphenhydrAMINE Capsule 25 MG CAP PO SCH (20:19)
[2021-10-09] MEDS: DOCUSATE SODIUM/SENNA 50/8.6MG TAB PO SCH (20:19)
[2021-10-09] MEDS: MELATONIN 3 MG TAB PO PRN (20:23)
[2021-10-10] MEDS: oxyCODONE HCL IR 5 MG TAB (IMMEDIATE RELEASE) PO PRN ×5 (04:46→22:25)
[2021-10-10] MEDS: PANTOprazole 40 MG TAB PO SCH (08:42)
[2021-10-10] MEDS: POTASSIUM CHLORIDE CRTAB 20 MEQ TABCR PO SCH (08:42)
[2021-10-10] MEDS: ATORVASTATIN 40 MG TAB PO SCH (08:42)
[2021-10-10] MEDS: CYANOCOBALAMIN (B-12) 500 MCG TABLET PO SCH (08:42)
[2021-10-10] MEDS: DULoxetine HCL 30 MG CAP PO SCH ×2 (08:42→20:50)
[2021-10-10] MEDS: CLOPIDOGREL BISULFATE 75 MG TAB PO SCH (08:42)
[2021-10-10] MEDS: POLYETHYLENE (MIRALAX) 17 GM PACK PO SCH ×3 (08:43→20:51)
[2021-10-10] MEDS: CALCIUM 600MG + VIT D 400 IU TAB PO SCH ×2 (08:43→20:50)
[2021-10-10] MEDS: LIDOCAINE 5% 1 PATCH TD SCH (08:43)
[2021-10-10] MEDS: SACCHAROMYCES BOULARDII 250 MG CAP PO SCH (08:43)
[2021-10-10] MEDS: ACETAMINOPHEN 500 MG TAB PO SCH ×3 (08:52→20:55)
--- NOTE | 2021-10-10 12:10 | Orthopedic Progress Note ---
Date of Service October 10, 2021 Assessment & Plan (1) Lumbar burst fracture: Plan: At this time we will continue to maintain limited activity only. Bed to chair as tolerated. She is unable to sit for any prolonged period of time so sitting should be limited to 5 to 10 minutes only. Admission and Anticipated Discharge Date Admission Date: October 02, 2021 Subjective Patient states her back pain is well controlled while lying supine. She states she can sit up in bed without difficulty. She still struggles with worsening back pain with prolonged sitting. She denies any numbness or tingling in her legs at this time. Physical Exam Physical Exam: On exam she does appear comfortable this time. She has reasonable strength testing lower extremities. Results & Data ([facility]) Vital Signs (Past 12 Hours) Vital Signs Temp Pulse Resp BP Pulse Ox 10/10/21 07:08 36.7 C 83 18 162/83 H 92
[2021-10-10] MEDS ORDERED: bisacodyL 5 MG TABEC PO ONE (13:39)
--- NOTE | 2021-10-10 13:39 | Hospitalist Progress Note ---
Date of Service October 10, 2021 Assessment & Plan (1) Lumbar compression fracture: Plan: Lumbar compression fracture, history of seven prior spinal surgeries Patient presented with a fall and a burst fracture of the L-spine in 3 vertebrae, unstable -s/p posterior spinal fusion L4-S1 and kyphoplasty L5 vertebral body on 10/03. Unfortunately, Dr. Palacios was not able to place rods due to significantly brittle bones -CHELE drain remains in place -Hgb did drop to 9.8 with some acute blood loss anemia, stable at 10.7 on last check -having ongoing fairly significant pain post-op with OOB to chair on 10/08 -repeat CT L_spine 10/08 nothing acute -continue Oxycodone 5-10mg PO Q4H PRN for breakthrough pain -continue IV dilaudid prn severe pain -post op care as per Ortho-recommends OOB to chair only for max 5-10 min at a time -continue bowel regimen as constipation also contributing to pain-did move bowels on 10/09 Continue regular diet PT/OT (2) Bilateral leg pain: Plan: -Suspect most likely secondary to her back-has been chronic for many months at least she thinks, exacerbated by recent fall but no new cauda equina suspected. -US arterial doppler to r/o PAD negative except slow flow in Left post tibial artery - continue Cymbalta and other pain medication as above (3) Constipation: Plan: -No BM since day of admission and has h/o severe chronic constipation, finally had large loose stool on 10/09 evening after FLeets, Mag citrate, senna/docusate, bisacodyl 10mg po x 1, and Miralax q6h -continue Miralax q6, senna/docusate -start scheduled daily bisacodyl (4) Hypoxia: Plan: -Suspect secondary to pulmonary edema +/- PNA below now resolved (5) Pulmonary edema: Plan: -Lasix 20mg IV x 1 given on admission -TTE normal -Daily weight -Strict I&Os -completed treatment for PNA (6) Elevated troponin: Plan: -No chest pain or shortness of breath to suggest ACS -troponin 0.2 and then trended downward, no ischemic changes on ECG, no CP -ECHO no WMAs -c/w demand ischemia (7) Bacterial pneumonia: Plan: -Chills prior to admission, no fevers, no cough, WBC elevated. -CXR with atelectasis vs interstitial thickening -COVID negative -Procalcitonin negative on 10/02 -leukocytosis now resolved, now weaned off O2 -Rocephin course completed 5 days 10/07, completed 3 day course of azithromycin 500mg -has a h/o C. diff, +probiotics (8) History of multiple strokes: Plan: -bilateral cerebellar and basal ganglia strokes occurred perioperatively after hip fracture in 2018. These were not thought to possibly be embolic versus related to severe postoperative anemia -She never had any evidence of atrial fibrillation -Then with TIA and expressive aphasia in 2021. -Has PFO, Holter monitor x 30 days negative for occult Afib in early 2021 Continue atorvastatin Plavix held for 48 hours, then resumed (9) Anxiety and depression: Plan: Her anxiety is worsened by acute medical situation Continue duloxetine avoid benzos given underlying dementia and h/o delirium post-op (10) Acid reflux: Plan: Continue pantoprazole (11) Insomnia: Plan: Discussed [facility] risks to continued diphenhydramine use - including increased risk of falls. She wishes to continue this during her hospital stay - she used to be on Ambien which was discontinued by PCP (12) Anemia: Plan: -Hemoglobin mildly low but stable from previous at 11 on admission -now drop to 10 s/p surgery from acute blood loss anemia -Normocytic -Fe studies show Fe deficiency with transferrin sat of 8% -Follow CBC - Venofer x3 given -B12 levels borderline low in 2019, folate normal then -Continue B12 supplementation (13) Osteoporosis: Plan: -Patient tolerated Boniva this admission with a full glass of water and sitting up (14) Multi-infarct dementia: Plan: noted supportive care Plan: VTE Prophylaxis -SCDs only given spine surgery Disposition- continued stay,.. Patient with increased pain and difficulty even ambulating to the trial, extremely limited engagement with physical therapy nearly dependent. Recommending SNF at this time, continue to follow and placement pending. Admission and Anticipated Discharge Date Admission Date: October 02, 2021 Subjective Had some very large BMs that were loose last night and abdomen feels much less distended but still feels there's more stool that could come out. Still with pain in back with movement but ok at rest. Is anxious for when she will be able to leave the hospital. Review of Systems Review of Systems: All systems reviewed & are unremarkable except as noted in HPI & below Physical Exam Constitutional: WD/WN, vitals as above Eyes: + anicteric sclerae Neck: trachea midline, no thyromegaly Respiratory: normal respiratory effort, lungs clear to auscultation Cardiovascular: RRR, no murmur, no edema Chest (Breasts): Chest: normal inspection of chest Gastrointestinal (Abdomen): normal bowel sounds, soft, nontender, no hepatosplenomegaly Musculoskeletal: Extremities: extremities normal to inspection; no cyanosis and no clubbing Skin: no rashes, warm and dry Neurologic: moves all extremities and awake; no focal motor deficits Psychiatric: A+Ox3, euthymic affect Lymphatic: no lymphedema Results & Data Results & Data ([facility]) Vital Signs (Past 12 Hours) Vital Signs Temp Pulse Resp BP Pulse Ox 10/10/21 07:08 36.7 C 83 18 162/83 H 92 PG Care Time/CCT Total # of Minutes Spent Total Time Spent with Patient: Total time spent is greater than 50% in coordination of care (as documented) at patient's floor/unit and/or counseling patient: Coding Level of Care Code 91207 Subseq Hosp Care Lvl 2 Diagnoses Lumbar compression fracture S32.000A Bilateral leg pain M79.604; M79.605 Constipation K59.00 Hypoxia R09.02 Pulmonary edema J81.1 Elevated troponin R77.8 Bacterial pneumonia J15.9 History of multiple strokes Z86.73 Anxiety and depression F41.9; F32.9 Acid reflux K21.9 Insomnia G47.00 Anemia D64.9 Osteoporosis M81.0 Multi-infarct dementia F01.51 Dementia behavioral disturbance: with behavioral disturbance (1) Multi-infarct dementia Dementia behavioral disturbance: with behavioral disturbance Qualified Code(s): F01.51 - Vascular dementia with behavioral disturbance
[2021-10-10] MEDS: bisacodyL 10 MG SUPP PR PRN (16:28)
[2021-10-10] MEDS: DOCUSATE SODIUM/SENNA 50/8.6MG TAB PO SCH (20:51)
[2021-10-10] MEDS: diphenhydrAMINE Capsule 25 MG CAP PO SCH (20:56)
[2021-10-10] MEDS: MELATONIN 3 MG TAB PO PRN (21:03)
[2021-10-11] MEDS: oxyCODONE HCL IR 5 MG TAB (IMMEDIATE RELEASE) PO PRN ×3 (06:41→22:02)
[2021-10-11] MEDS: traMADol HCL 50 MG TABLET PO PRN ×2 (08:02→22:57)
[2021-10-11] MEDS: CYANOCOBALAMIN (B-12) 500 MCG TABLET PO SCH (08:12)
[2021-10-11] MEDS: SACCHAROMYCES BOULARDII 250 MG CAP PO SCH (08:13)
[2021-10-11] MEDS: CLOPIDOGREL BISULFATE 75 MG TAB PO SCH (08:13)
[2021-10-11] MEDS: PANTOprazole 40 MG TAB PO SCH (08:13)
[2021-10-11] MEDS: CALCIUM 600MG + VIT D 400 IU TAB PO SCH ×2 (08:13→20:25)
[2021-10-11] MEDS: ATORVASTATIN 40 MG TAB PO SCH (08:13)
[2021-10-11] MEDS: DULoxetine HCL 30 MG CAP PO SCH ×2 (08:13→20:26)
[2021-10-11] MEDS: LIDOCAINE 5% 1 PATCH TD SCH (08:14)
[2021-10-11] MEDS: POLYETHYLENE (MIRALAX) 17 GM PACK PO SCH ×3 (08:14→20:26)
[2021-10-11] MEDS: POTASSIUM CHLORIDE CRTAB 20 MEQ TABCR PO SCH (08:16)
[2021-10-11] MEDS: ACETAMINOPHEN 500 MG TAB PO SCH (08:16)
--- NOTE | 2021-10-11 12:21 | Hospitalist Progress Note ---
Date of Service October 11, 2021 Assessment & Plan (1) Lumbar compression fracture: Plan: Lumbar compression fracture, history of seven prior lumbar spinal surgeries Patient presented with a fall and a burst fracture of the L-spine in 3 vertebrae, unstable -s/p posterior spinal fusion L4-S1 and kyphoplasty L5 vertebral body on 10/03. Unfortunately, Dr. Palacios was not able to place rods/screws due to severe osteoporosis -CHELE drain remains in place -Hgb did drop to 9.8 with some acute blood loss anemia, stable at 10.7 on last check -With ongoing fairly significant pain post-op especially with OOB to chair -repeat CT L_spine 10/08 nothing acute -continue Oxycodone 5-10mg PO Q4H PRN for breakthrough pain, tramadol as needed, Tylenol -continue IV dilaudid prn severe pain -post op care as per Ortho-recommends OOB to chair only for max 5-10 min at a time -continue bowel regimen as constipation also contributing to pain-did move bowels on 10/09 and again on 10/10 Continue regular diet PT/OT -Given ongoing neuropathic type pain down left anterior thigh, will start amarilis pentin 100 mg p.o. 3 times daily and titrate up as tolerated (2) Bilateral leg pain: Plan: -Suspect most likely secondary to her back-has been chronic for many months at least she thinks, exacerbated by recent fall but no new cauda equina suspected. Lower extremity pain was resolved immediately postoperatively, but continues now to have recurrence of left lower extremity radiculopathy in the L2-3 region -US arterial doppler to r/o PAD negative except slow flow in Left post tibial artery - continue Cymbalta and other pain medication as above -Starting gabapentin as above (3) Constipation: Plan: -has h/o severe chronic constipation, did not move her bowels for the first 10 days of hospitalization -Finally had large loose stool on 10/09 evening after FLeets enema, 1 bottle of mag citrate, senna/docusate daily, bisacodyl 10mg po daily, and Miralax q6h -continue Miralax q6, senna/docusate, bisacodyl 10 mg p.o. daily Give another fleets enema today (4) Hypoxia: Plan: -Suspect secondary to pulmonary edema +/- PNA below now resolved (5) Pulmonary edema: Plan: -Lasix 20mg IV x 1 given on admission -TTE normal -Daily weight -Strict I&Os -completed treatment for PNA (6) Elevated troponin: Plan: -No chest pain or shortness of breath to suggest ACS -troponin 0.2 and then trended downward, no ischemic changes on ECG, no CP -ECHO no WMAs -c/w demand ischemia (7) Bacterial pneumonia: Plan: -Chills prior to admission, no fevers, no cough, WBC elevated. -CXR with atelectasis vs interstitial thickening -COVID negative -Procalcitonin negative on 10/02 -leukocytosis now resolved, now weaned off O2 -Rocephin course completed 5 days 10/07, completed 3 day course of azithromycin 500mg -has a h/o C. diff, continue probiotics (8) History of multiple strokes: Plan: -bilateral cerebellar and basal ganglia strokes occurred perioperatively after hip fracture in 2018. These were not thought to possibly be embolic versus related to severe postoperative anemia -She never had any evidence of atrial fibrillation -Then with TIA and expressive aphasia in 2021. -Has PFO, Holter monitor x 30 days negative for occult Afib in early 2021 Continue atorvastatin Plavix held for 48 hours after spine surgery, and has since been resumed (9) Anxiety and depression: Plan: Her anxiety is worsened by acute medical situation, but has improved over the last few days Continue duloxetine (10) Acid reflux: Plan: Continue pantoprazole (11) Insomnia: Plan: Discussed auriculotherapist risks to continued diphenhydramine use - including increased risk of falls. She wishes to continue this during her hospital stay - she used to be on Ambien which was discontinued by PCP (12) Anemia: Plan: -Hemoglobin mildly low but stable from previous at 11 on admission -now drop to 10 s/p surgery from acute blood loss anemia -Normocytic -Fe studies show Fe deficiency with transferrin sat of 8% -Follow CBC - Venofer x3 given here as she cannot tolerate oral ferrous sulfate due to severe chronic constipation -B12 levels borderline low in 2019, folate normal then -Continue B12 supplementation (13) Osteoporosis: Plan: Is on Boniva once monthly Given lumbar spine burst fracture, should consider Forteo as an [id number] with PCP and/or rheumatology or endocrinology (14) Multi-infarct dementia: Plan: noted, mild, has difficulty with short-term memory, but overall very conversational and pleasant, no ongoing delirium superimposed supportive care Plan: VTE Prophylaxis -SCDs only given spine surgery Disposition- continued stay,.. Patient with increased pain and difficulty even ambulating to the trial, extremely limited engagement with physical therapy nearly dependent. Recommending SNF at this time, continue to follow and placement pending. Not medically stable for discharge yet due to inability to even participate in PT at this time Admission and Anticipated Discharge Date Admission Date: October 02, 2021 Subjective Patient still having severe lower back pain as she thinks she slept on it wrong last night. She took 2 tramadol and then later to oxycodone and is still having significant pain down the left anterior thigh that feels burning and itchy in nature. No further bowel movement since yesterday after suppository. She is eating and drinking. Review of Systems Review of Systems: All systems reviewed & are unremarkable except as noted in HPI & below Physical Exam Constitutional: WD/WN, vitals as above Eyes: + anicteric sclerae Neck: trachea midline, no thyromegaly Respiratory: normal respiratory effort, lungs clear to auscultation Cardiovascular: RRR, no murmur, no edema Chest (Breasts): Chest: normal inspection of chest Gastrointestinal (Abdomen): normal bowel sounds, soft, nontender, no hepatosplenomegaly Musculoskeletal: Extremities: extremities normal to inspection; no cyanosis and no clubbing Skin: no rashes, warm and dry Neurologic: moves all extremities and awake; no focal motor deficits Psychiatric: A+Ox3, euthymic affect Lymphatic: no lymphedema Results & Data Results & Data ([facility]) Vital Signs (Past 12 Hours) Vital Signs Temp Pulse Resp BP Pulse Ox 10/11/21 07:07 36.9 C 78 16 153/81 H 95 PG Care Time/CCT Total # of Minutes Spent Total Time Spent with Patient: Total time spent is greater than 50% in coordination of care (as documented) at patient's floor/unit and/or counseling patient: Coding Level of Care Code 82356 Subseq Hosp Care Lvl 2 Diagnoses Lumbar compression fracture S32.000A Bilateral leg pain M79.604; M79.605 Constipation K59.00 Hypoxia R09.02 Pulmonary edema J81.1 Elevated troponin R77.8 Bacterial pneumonia J15.9 History of multiple strokes Z86.73 Anxiety and depression F41.9; F32.9 Acid reflux K21.9 Insomnia G47.00 Anemia D64.9 Osteoporosis M81.0 Multi-infarct dementia F01.51 Dementia behavioral disturbance: with behavioral disturbance (1) Multi-infarct dementia Dementia behavioral disturbance: with behavioral disturbance Qualified Code(s): F01.51 - Vascular dementia with behavioral disturbance
[2021-10-11] MEDS ORDERED: ACETAMINOPHEN 500 MG TAB PO PRN ×2 (12:41→12:44)
[2021-10-11] MEDS: bisacodyL 5 MG TABEC PO SCH (13:03)
[2021-10-11] MEDS: GABAPENTIN 100 MG CAP PO SCH ×2 (13:03→20:26)
[2021-10-11] MEDS ORDERED: SOD PHOSPHATE/SOD BIPHOSPHATE ENEMA 132 ML BTL PR STA (17:14)
[2021-10-11] MEDS: bisacodyL 10 MG SUPP PR PRN (20:24)
[2021-10-11] MEDS: diphenhydrAMINE Capsule 25 MG CAP PO SCH (20:25)
[2021-10-11] MEDS: DOCUSATE SODIUM/SENNA 50/8.6MG TAB PO SCH ×2 (20:25→22:01)
[2021-10-11] MEDS: MELATONIN 3 MG TAB PO PRN (20:26)
[2021-10-12] MEDS: SACCHAROMYCES BOULARDII 250 MG CAP PO SCH (08:53)
[2021-10-12] MEDS: GABAPENTIN 100 MG CAP PO SCH ×3 (08:53→20:55)
[2021-10-12] MEDS: ATORVASTATIN 40 MG TAB PO SCH (08:53)
[2021-10-12] MEDS: CYANOCOBALAMIN (B-12) 500 MCG TABLET PO SCH (08:53)
[2021-10-12] MEDS: CLOPIDOGREL BISULFATE 75 MG TAB PO SCH (08:53)
[2021-10-12] MEDS: PANTOprazole 40 MG TAB PO SCH (08:53)
[2021-10-12] MEDS: CALCIUM 600MG + VIT D 400 IU TAB PO SCH ×2 (08:53→20:56)
[2021-10-12] MEDS: DULoxetine HCL 30 MG CAP PO SCH ×2 (08:54→20:55)
[2021-10-12] MEDS: bisacodyL 5 MG TABEC PO SCH (08:54)
[2021-10-12] MEDS: POLYETHYLENE (MIRALAX) 17 GM PACK PO SCH ×2 (08:57→13:03)
[2021-10-12] MEDS: POTASSIUM CHLORIDE CRTAB 20 MEQ TABCR PO SCH (08:57)
[2021-10-12] MEDS: LIDOCAINE 5% 1 PATCH TD SCH (08:59)
[2021-10-12 10:09] LABS: BUN Creatinine Ratio 21.1 (10-20); Calcium 9.3 mg/dl (8.5-10.1); Est GFR (African American) 105.1 ml/min; Est GFR (Non-African American) 90.7 ml/min; Potassium 3.4 mmol/L (3.5-5.1)
[2021-10-12] MEDS: oxyCODONE HCL IR 5 MG TAB (IMMEDIATE RELEASE) PO PRN ×2 (10:58→21:53)
--- NOTE | 2021-10-12 12:08 | Orthopedic Progress Note ---
Date of Service October 12, 2021 Assessment & Plan (1) Lumbar burst fracture: Plan: Assessment L5 burst fracture. Plan at this time I do not believe she would be a candidate for rehab. She is not a candidate for significant physical therapy at this point. In fact she is at relative bed rest. I did ask her to sit up as tolerated. She mostly require long-term placement with physical therapy while in bed. We will slowly transition her to bed to chair in the upcoming weeks and begin ambulation when it is tolerated. Unfortunate he is on a long course of recovery secondary to severe osteoporosis and the unstable pattern of her fracture. Admission and Anticipated Discharge Date Admission Date: October 02, 2021 Subjective Patient is comfortable lying in bed. She does have significant pain with sitting. She has some radiation to the right upper buttock thigh. Physical Exam Physical Exam: On exam she is lying flat in bed. She is comfortable in this position. She is good strength testing. She does have some tenderness palpation of the right greater trochanter. Results & Data ([facility]) Vital Signs (Past 12 Hours) Vital Signs Temp Pulse Pulse Resp BP Pulse Ox 10/12/21 07:28 36.7 C 64 12 128/78 93 10/12/21 07:00 36.8 C 90 16 138/78 93
[2021-10-12] MEDS ORDERED: POTASSIUM CHLORIDE CRTAB 20 MEQ TABCR PO STA (12:42)
--- NOTE | 2021-10-12 12:44 | Hospitalist Progress Note ---
Date of Service October 12, 2021 Assessment & Plan (1) Lumbar compression fracture: Plan: Acute horizontal 3 column fracture involving the superior endplate of L5, the L4-L5 intervertebral disc, the inferior endplate of L4 and the bilateral pedicles, right greater than left. This was following a minor fall at home. s/p posterior spinal fusion L4-S1 and kyphoplasty L5 vertebral body on 10/03/[address] Palacios. Due to severe osteoporosis was not able to place rods/screws. Post-operatively her progress has been limited by severe back pain. repeat CT lumbar spine on 10/08/21 showed stable findings. Remains on prn oxycodone, tramadol prn, and IV dilaudid prn. Schedule tylenol 1gm TID. Gabapentin 100mg TID started for presumed neuropathic pain in her b/l thighs. Activity - per ortho - OOB to chair only for max 5-10 min at a time. 25-OH vitamin D level today robust at 50+. (2) Bilateral leg pain: Plan: Likely radicular. Cont Cymbalta. Cont pain meds. Cont gabapentin TID. Initiated 10/11/21. Could titrate latter in 3-4 days. (3) Constipation: Plan: ongoing issues. chronic, but acutely much worse during this stay. significant distension on exam today. KUB x-ray ordered - ileus pattern. stop miralax. stop dulcolax PO. cont with senna. replace low K. unfortunately her poor mobility and need for opiates will make this issue worse/ongoing. (4) Hypoxia: Plan: resolved (5) Pulmonary edema: Plan: resolved appears euvolemic today (6) Elevated troponin: Plan: likely myocardial demand ischemia in setting of back issues, surgery, etc. Peak troponin 0.2. no evidence of ACS. echo - preserved EF, no wall motion abnormalities. (7) Bacterial pneumonia: Plan: suspected. s/p Rocephin course -- completed 5 days on 10/07/21. completed 3 day course of azithromycin 500mg. clinically resolved. (8) History of multiple strokes: Plan: bilateral cerebellar and basal ganglia strokes perioperatively after hip fracture in 2019. TIA and expressive aphasia in 2021. No issues this admission. Cont atorvastatin Cont Plavix (held for 48 hours after spine surgery, and has since been resumed). (9) Anxiety and depression: Plan: Continue duloxetine (10) Acid reflux: Plan: Continue pantoprazole (11) Insomnia: Plan: Prior attending discussed adjunct faculty for medical terminology risks of continued diphenhydramine use including increased risk of falls. She reported a desire to continue this during her hospital stay and after. Could easily be contributing to bowel motility issues as well. (12) Anemia: Plan: Fe studies show Fe deficiency with transferrin sat of 8%, s/p venofer x 3 doses this admission. h/o low-normal B12 level - remains on B12 supplementation. most recent past folic acid level wnl. most recent cbcs have been acceptable. (13) Osteoporosis: Plan: Is on Boniva once monthly Given lumbar spine burst fracture, should consider Forteo. (14) Multi-infarct dementia: Plan: no agitated delirium or hospital psychosis at this time Plan: DVT proph - SCDS; will speak with ortho, get permission to use chemical means (heparin SC, etc) updated pt's by phone this evening dispo - SNF for irritated skin (contact derm) from monitor leads - triamcinolone cream 0.1% TID in thin amounts replace low K Admission and Anticipated Discharge Date Admission Date: October 02, 2021 Subjective pt resting comfortably in bed during the visit several complaints, however, including feeling full/bloated in her abdomen (spent much of the time complaining about her chronic constipation) she is not passing flatus she is upset that she can't go to [facility] - she was told by orthopedics that SNF for rehab would be best given her current immobility and limitations continues to have pain in both proximal thighs - anterior she also has a mild, itchy rash on upper chest where leads from the monitor were located Review of Systems Review of Systems: gen - no fevers cv - no chest pain pulm - no dyspnea GI - no pain - just bloating Physical Exam Physical Exam: gen - slight confusion, otherwise NAD mouth - MMM, no lesions neck - no JVD heart - RRR, s1 s2 lungs - mild dry basilar rales b/l, no wheeze abd - distended, BS+ but decreased, NT ext - pulses 2+ b/l neuro - strength b/l hip flexion 5/5 skin - mild irritation/contact dermatitis on upper chest from prior monitor lead stickers Results & Data Results & Data ([facility]) Vital Signs (Past 12 Hours) Vital Signs Temp Pulse Pulse Resp BP Pulse Ox 10/12/21 07:28 36.7 C 64 12 128/78 93 10/12/21 07:00 36.8 C 90 16 138/78 93 Laboratory Results Laboratory Results - last 24 hr 10/12/21 10/12/21 09:31 09:31 Sodium 137 Potassium 3.4 L Chloride 103 Carbon Dioxide 26 Anion Gap 8 BUN 12 Creatinine 0.57 L Est Cr Clr Drug Dosing 86.0 Est GFR ( Amer) 105.1 Est GFR (Non-Af Amer) 90.7 BUN/Creatinine Ratio 21.1 H Glucose 117 H Calcium 9.3 25-OH Vitamin D Total 51.8 PG Care Time/CCT Total # of Minutes Spent Total Time Spent with Patient: Total time spent is greater than 50% in coordination of care (as documented) at patient's floor/unit and/or counseling patient: Coding Level of Care Code 73410 Subseq Hosp Care Lvl 3 Diagnoses Lumbar compression fracture S32.000A Bilateral leg pain M79.604; M79.605 Constipation K59.00 Hypoxia R09.02 Pulmonary edema J81.1 Elevated troponin R77.8 Bacterial pneumonia J15.9 History of multiple strokes Z86.73 Anxiety and depression F41.9; F32.9 Acid reflux K21.9 Insomnia G47.00 Anemia D64.9 Osteoporosis M81.0 Multi-infarct dementia F01.51 Dementia behavioral disturbance: with behavioral disturbance (1) Multi-infarct dementia Dementia behavioral disturbance: with behavioral disturbance Qualified Code(s): F01.51 - Vascular dementia with behavioral disturbance
[2021-10-12] MEDS: ACETAMINOPHEN 500 MG TAB PO SCH ×2 (13:10→20:56)
--- NOTE | 2021-10-12 13:40 | XRay Report ---
XR KUB/Abdomen 1 view CLINICAL HISTORY: abd distension, constipation TECHNIQUE: 1 view of the abdomen was obtained. Comparison: Comparison is made to chest and abdomen radiographs 11/20/2016 FINDINGS: Lung bases are unremarkable. There is a right total hip arthroplasty. Moderate degenerative changes a re seen in the left hip joint and in the lumbar spine. Multiple gas distended loops of small bowel ar e seen, measuring up to 33 mm in diameter. Significant colonic gas is seen. IMPRESSION: Mildly gas-distended loops of small bowel are seen which may represent ileus versus partial small bow el obstruction. ACT 112: Negative or not required by law. Electronically signed by: Colton Cedillo M.D. 10/12/2021 1:38 PM
[2021-10-12] MEDS: TRIAMCINOLONE ACET 0.1% CR 80 GM TUBE EXT SCH ×2 (16:11→21:48)
[2021-10-12] MEDS: bisacodyL 10 MG SUPP PR PRN (16:54)
[2021-10-12] MEDS: diphenhydrAMINE Capsule 25 MG CAP PO SCH (20:55)
[2021-10-12] MEDS: SENNA 8.6 MG TAB PO SCH (21:48)
[2021-10-12] MEDS: MELATONIN 3 MG TAB PO PRN (21:49)
[2021-10-13 07:48] LABS: BUN Creatinine Ratio 25.5 (10-20); Creatinine Clr Calc Pharmacy 96.1 ml/min; Est GFR (Non-African American) 94.1 ml/min; Magnesium 1.9 mg/dl (1.7-2.4); Potassium 3.7 mmol/L (3.5-5.1)
[2021-10-13] MEDS: oxyCODONE HCL IR 5 MG TAB (IMMEDIATE RELEASE) PO PRN (08:02)
[2021-10-13] MEDS: POTASSIUM CHLORIDE CRTAB 20 MEQ TABCR PO SCH (08:02)
[2021-10-13] MEDS: PANTOprazole 40 MG TAB PO SCH (08:03)
[2021-10-13] MEDS: GABAPENTIN 100 MG CAP PO SCH ×3 (08:03→20:14)
[2021-10-13] MEDS: CLOPIDOGREL BISULFATE 75 MG TAB PO SCH (08:03)
[2021-10-13] MEDS: CYANOCOBALAMIN (B-12) 500 MCG TABLET PO SCH (08:03)
[2021-10-13] MEDS: SENNA 8.6 MG TAB PO SCH ×2 (08:03→20:16)
[2021-10-13] MEDS: DULoxetine HCL 30 MG CAP PO SCH ×2 (08:03→20:16)
[2021-10-13] MEDS: SACCHAROMYCES BOULARDII 250 MG CAP PO SCH (08:03)
[2021-10-13] MEDS: ACETAMINOPHEN 500 MG TAB PO SCH ×3 (08:04→20:14)
[2021-10-13] MEDS: CALCIUM 600MG + VIT D 400 IU TAB PO SCH ×2 (08:04→20:15)
[2021-10-13] MEDS: ATORVASTATIN 40 MG TAB PO SCH (08:04)
[2021-10-13] MEDS: LIDOCAINE 5% 1 PATCH TD SCH (08:05)
[2021-10-13] MEDS: TRIAMCINOLONE ACET 0.1% CR 80 GM TUBE EXT SCH ×3 (08:05→20:15)
--- NOTE | 2021-10-13 10:17 | Hospitalist Progress Note ---
Date of Service October 13, 2021 Assessment & Plan (1) Ileus: Plan: has baseline constipation (mod-severe chronically) but remains quite distended with little to no passage of flatus & radiographic evidence of ileus. try to limit narcotic usage. Keep mag/K wnl. unfortunately her biggest barrier to resolving the ileus is inability to ambulate. downgrade diet to full liquids. defer on IV fluids for now. consider dulcolax suppos. continue senna BID. (2) Lumbar compression fracture: Plan: Acute horizontal 3 column fracture involving the superior endplate of L5, the L4-L5 intervertebral disc, the inferior endplate of L4 and the bilateral pedicles, right greater than left. This was following a minor fall at home. s/p posterior spinal fusion L4-S1 and kyphoplasty L5 vertebral body on 10/03/[address] Palacios. Due to severe osteoporosis was not able to place rods/screws. Post-operatively her progress has been limited by severe back pain. repeat CT lumbar spine on 10/08/21 showed stable findings. Remains on prn oxycodone, tramadol prn, and IV dilaudid prn. Cont tylenol 1gm TID. Gabapentin 100mg TID started for presumed neuropathic pain in her b/l thighs. Will increase the HS dose to 200mg; leave AM and afternoon doses at 100mg each. Activity - per ortho - OOB to chair only for max 5-10 min at a time. 25-OH vitamin D level robust at 50+. (3) Bilateral leg pain: Plan: Likely radicular. Cont Cymbalta. Cont pain meds. Cont gabapentin TID. Initiated 10/11/21. See above; will increase HS dose. (4) Constipation: Plan: see #1 above (5) Hypoxia: Plan: resolved (6) Pulmonary edema: Plan: resolved euvolemic (7) Elevated troponin: Plan: likely myocardial demand ischemia in setting of back issues, surgery, etc. Peak troponin 0.2. no evidence of ACS. echo - preserved EF, no wall motion abnormalities. (8) Bacterial pneumonia: Plan: suspected. s/p Rocephin course -- completed 5 days on 10/07/21. completed 3 day course of azithromycin 500mg. clinically resolved. (9) History of multiple strokes: Plan: bilateral cerebellar and basal ganglia strokes perioperatively after hip fracture in 2019. TIA and expressive aphasia in 2021. No issues this admission. Cont atorvastatin Cont Plavix (held for 48 hours after spine surgery, and has since been resumed). (10) Anxiety and depression: Plan: Continue duloxetine (11) Acid reflux: Plan: Continue pantoprazole (12) Insomnia: Plan: stop the benadryl; is on [place] list, and could be affecting bowel motility increase HS gabapentin to 200mg - this may help sleep (13) Anemia: Plan: Fe studies show Fe deficiency with transferrin sat of 8%, s/p venofer x 3 doses this admission. h/o low-normal B12 level - remains on B12 supplementation. most recent past folic acid level wnl. most recent cbcs have been acceptable. (14) Osteoporosis: Plan: Is on Boniva once monthly Given lumbar spine burst fracture, should consider Forteo. (15) Multi-infarct dementia: Plan: no agitated delirium or hospital psychosis at this time Plan: DVT proph - ok with orthopedics to start chemical DVT proph - start heparin 5000 BID hypokalemia - resolved updated pt's by phone yesterday evening dispo - SNF Admission and Anticipated Discharge Date Admission Date: October 02, 2021 Subjective resting comfortably in bed she is upset that she will need to go to SNF post-d/c for rehab she continues to feel bloated is not passing flatus appetite is fair at best gets easily filled up with minimal amount of food intake I discussed the benadryl use with her and the potential effects it may have on the bowels she is ok with stopping it cont with radicular pain on left (L thigh, anterior) Review of Systems Review of Systems: gen - mild anorexia, fatigue cv - no cp, no orthopnea pulm - no dyspnea GI - no abd pain but is bloated/distended; no vomiting Physical Exam Physical Exam: gen - NAD, pleasant confusion (mild) mouth - MMM, no lesions neck - no JVD heart - RRR, s1 s2 lungs - mild dry basilar rales b/l, no wheeze abd - distended - no change, BS+ but decreased, NT, no HSM ext - pulses 2+ b/l, no edema neuro - strength b/l hip flexion 5/5 Results & Data Results & Data ([facility]) Vital Signs (Past 12 Hours) Vital Signs Temp Pulse Resp BP Pulse Ox 10/13/21 07:15 37.2 C 81 20 159/93 H 91 10/13/21 00:14 36.9 C 87 18 130/81 91 Laboratory Results Laboratory Results - last 24 hr 10/12/21 10/13/21 09:31 06:16 Sodium 138 Potassium 3.7 Chloride 106 Carbon Dioxide 26 Anion Gap 6 BUN 13 Creatinine 0.51 L Est Cr Clr Drug Dosing 96.1 Est GFR ( Amer) 109.0 Est GFR (Non-Af Amer) 94.1 BUN/Creatinine Ratio 25.5 H Glucose 106 H Calcium 9.0 Magnesium 1.9 25-OH Vitamin D Total 51.8 Diagnostic Findings KUB x-ray - 10/12 - ileus PG Care Time/CCT Total # of Minutes Spent Total Time Spent with Patient: Total time spent is greater than 50% in coordination of care (as documented) at patient's floor/unit and/or counseling patient: Coding Level of Care Code 69595 Subseq Hosp Care Lvl 3 Diagnoses Lumbar compression fracture S32.000A Bilateral leg pain M79.604; M79.605 Constipation K59.00 Hypoxia R09.02 Pulmonary edema J81.1 Elevated troponin R77.8 Bacterial pneumonia J15.9 History of multiple strokes Z86.73 Anxiety and depression F41.9; F32.9 Acid reflux K21.9 Insomnia G47.00 Anemia D64.9 Osteoporosis M81.0 Multi-infarct dementia F01.51 Dementia behavioral disturbance: with behavioral disturbance Ileus K56.7 (1) Multi-infarct dementia Dementia behavioral disturbance: with behavioral disturbance Qualified Code(s): F01.51 - Vascular dementia with behavioral disturbance
[2021-10-13] MEDS: HEPARIN SOD 5,000 UNIT/0.5 ML VIAL SQ SCH ×2 (13:09→20:14)
[2021-10-13] MEDS: DICLOFENAC SOD 1% GEL 100 GM TUBE EXT SCH ×3 (13:09→20:25)
[2021-10-13] MEDS: HYDROmorphone INJ 0.5 MG/0.5 ML SYR IV PRN ×3 (13:10→23:51)
[2021-10-13] MEDS: MELATONIN 3 MG TAB PO SCH (20:17)
[2021-10-13] MEDS: traMADol HCL 50 MG TABLET PO PRN (22:28)
[2021-10-14 07:47] LABS: Calcium 8.1 mg/dl (8.5-10.1); Creatinine Clr Calc Pharmacy 98.1 ml/min; Est GFR (African American) 109.7 ml/min; Est GFR (Non-African American) 94.7 ml/min; Potassium 3.7 mmol/L (3.5-5.1)
[2021-10-14] MEDS: traMADol HCL 50 MG TABLET PO PRN ×3 (08:33→19:59)
[2021-10-14] MEDS: ATORVASTATIN 40 MG TAB PO SCH (08:53)
[2021-10-14] MEDS: CYANOCOBALAMIN (B-12) 500 MCG TABLET PO SCH (08:53)
[2021-10-14] MEDS: CALCIUM 600MG + VIT D 400 IU TAB PO SCH ×2 (08:53→21:31)
[2021-10-14] MEDS: ACETAMINOPHEN 500 MG TAB PO SCH ×3 (08:53→21:31)
[2021-10-14] MEDS: CLOPIDOGREL BISULFATE 75 MG TAB PO SCH (08:53)
[2021-10-14] MEDS: GABAPENTIN 100 MG CAP PO SCH ×3 (08:54→21:32)
[2021-10-14] MEDS: SENNA 8.6 MG TAB PO SCH ×2 (08:54→21:33)
[2021-10-14] MEDS: SACCHAROMYCES BOULARDII 250 MG CAP PO SCH (08:54)
[2021-10-14] MEDS: DULoxetine HCL 30 MG CAP PO SCH ×2 (08:54→21:31)
[2021-10-14] MEDS: PANTOprazole 40 MG TAB PO SCH (08:54)
[2021-10-14] MEDS: POTASSIUM CHLORIDE CRTAB 20 MEQ TABCR PO SCH (08:56)
--- NOTE | 2021-10-14 10:20 | XRay Report ---
KUB HISTORY: Abdominal distention. Follow up ileus. COMPARISON: KUB 10/12/2021. FINDINGS: Dilated gas-filled loops of large and small bowel are again seen throughout the abdomen. Th is is similar to the prior study. There is a right hip hemiarthroplasty. No renal calculi. No ureter al calculi. No pneumoperitoneum or pneumatosis. IMPRESSION: Persistent gaseous distention of the large and small bowel consistent with an ileus. ACT 112: Negative or not required by law. Electronically signed by: Jean Colón M.D. 10/14/2021 10:19 AM
[2021-10-14] MEDS: LIDOCAINE 5% 1 PATCH TD SCH (11:03)
[2021-10-14] MEDS: HEPARIN SOD 5,000 UNIT/0.5 ML VIAL SQ SCH ×2 (11:03→21:32)
[2021-10-14] MEDS: DICLOFENAC SOD 1% GEL 100 GM TUBE EXT SCH ×4 (11:05→21:31)
[2021-10-14] MEDS: TRIAMCINOLONE ACET 0.1% CR 80 GM TUBE EXT SCH ×3 (11:05→21:33)
[2021-10-14] MEDS ORDERED: D5NSS + 20MEQ KCL 20 MEQ/1,000 ML BAG IV SCH (12:15)
--- NOTE | 2021-10-14 17:55 | Hospitalist Progress Note ---
Date of Service October 14, 2021 Assessment & Plan (1) Ileus: Plan: has baseline constipation (mod-severe chronically) but has developed an ileus in the midst of her protracted stay. narcotics, recent hypokalemia, immobility, etc all to blame. dilaudid/oxycodone stopped; tramadol adjusted. try to limit narcotic usage. Keep mag/K wnl. unfortunately her biggest barrier to resolving the ileus fully is inability to ambulate. however, she did finally move her bowels and pass decent amount of flatus today. cont full liquids today; perhaps advance back to low fiber tomorrow. give 1 L of fluids today. continue senna BID. defer on miralax as this may make the gaseous distension transiently worse. but once ileus is resolved would place back on miralax qd-bid. (2) Lumbar compression fracture: Plan: Acute horizontal 3 column fracture involving the superior endplate of L5, the L4-L5 intervertebral disc, the inferior endplate of L4 and the bilateral pedicles, right greater than left. This was following a minor fall at home. s/p posterior spinal fusion L4-S1 and kyphoplasty L5 vertebral body on 10/03/[address] Palacios. Due to severe osteoporosis was not able to place rods/screws. Post-operatively her progress has been limited by severe back pain. repeat CT lumbar spine on 10/08/21 showed stable findings. Remains on prn tramadol. Cont tylenol 1gm TID. Gabapentin 100mg TID started for presumed neuropathic pain in her b/l thighs. HS dose increased to 200mg; leave AM and afternoon doses at 100mg each. Activity - per ortho - OOB to chair only for max 5-10 min at a time. 25-OH vitamin D level robust at 50+. poor candidate for aggressive, inpatient acute rehab. SNF level of rehab post-d/c recommended by therapy, Dr Palacios, etc (3) Bilateral leg pain: Plan: Likely radicular. Cont Cymbalta. Cont pain meds. Cont gabapentin TID. Initiated 10/11/21. See above. (4) Constipation: Plan: see #1 above (5) Hypoxia: Plan: resolved (6) Pulmonary edema: Plan: resolved euvolemic (7) Elevated troponin: Plan: likely myocardial demand ischemia in setting of back issues, surgery, etc. Peak troponin 0.2. no evidence of ACS. echo - preserved EF, no wall motion abnormalities. (8) Bacterial pneumonia: Plan: suspected. s/p Rocephin course -- completed 5 days on 10/07/21. completed 3 day course of azithromycin 500mg. clinically resolved. stable in room air with no pulmonary symptoms. (9) History of multiple strokes: Plan: bilateral cerebellar and basal ganglia strokes perioperatively after hip fracture in 2018. TIA and expressive aphasia in 2021. No issues this admission. Cont atorvastatin Cont Plavix (held for 48 hours after spine surgery, and has since been resumed). (10) Anxiety and depression: Plan: Continue duloxetine (11) Acid reflux: Plan: Continue pantoprazole (12) Insomnia: Plan: stopped the benadryl; is on [facility]ers list, and could be affecting bowel motility; she was agreeable to stopping it. increased HS gabapentin to 200mg - this may help sleep. cont melatonin 3mg HS scheduled. (13) Anemia: Plan: Fe studies show Fe deficiency with transferrin sat of 8%, s/p venofer x 3 doses this admission. h/o low-normal B12 level - remains on B12 supplementation. most recent past folic acid level wnl. most recent cbcs have been acceptable. repeat cbc in am for stability. (14) Osteoporosis: Plan: Is on Boniva once monthly Given lumbar spine burst fracture, should consider Forteo. (15) Multi-infarct dementia: Plan: no agitated delirium or hospital psychosis at this time Plan: DVT proph - heparin 5000 BID hypokalemia - resolved w/ supplementation BMP am for stability updated pt's by phone this evening discussed ileus, pain control, disposition dispo - SNF Admission and Anticipated Discharge Date Admission Date: October 02, 2021 Subjective resting comfortably in bed no new complaints slept ok last night (benadryl has been stopped) eating fair at best abdominal bloating improved but not fully resolved did have flatus and stool this am no nausea pain control - fair/good; I asked her if she needed meds increased - she said no b/l thigh pain - improved with gabapentin still upset she will need rehab post-d/c Review of Systems Review of Systems: gen - no fever cv - no orthopnea, no chest pain pulm - no dyspnea GI - no pain just bloating; stool was liquid this am Physical Exam Physical Exam: gen - NAD, confusion improved from prior visits/exams mouth - MMM, no lesions neck - no JVD heart - RRR, s1 s2 lungs - mild dry basilar rales b/l, no wheeze abd - distended but IMPROVED today; BS+, NT, no HSM ext - pulses 2+ b/l, no edema neuro - strength b/l hip flexion 5/5 Results & Data Results & Data ([facility]) Vital Signs (Past 12 Hours) Vital Signs Temp Pulse Resp BP Pulse Ox 10/14/21 14:40 36.6 C 79 16 135/76 93 10/14/21 07:37 36.7 C 79 16 114/72 93 Laboratory Results Laboratory Results - last 24 hr 10/14/21 06:32 Sodium 137 Potassium 3.7 Chloride 105 Carbon Dioxide 26 Anion Gap 6 BUN 10 Creatinine 0.50 L Est Cr Clr Drug Dosing 98.1 Est GFR ( Amer) 109.7 Est GFR (Non-Af Amer) 94.7 BUN/Creatinine Ratio 20.0 Glucose 99 Calcium 8.1 L Diagnostic Findings KUB xray today - no change in ileus from 10/12 KUB xray PG Care Time/CCT Total # of Minutes Spent Total Time Spent with Patient: Total time spent is greater than 50% in coordination of care (as documented) at patient's floor/unit and/or counseling patient: Coding Level of Care Code 33610 Subseq Hosp Care Lvl 2 Diagnoses Ileus K56.7 Lumbar compression fracture S32.000A Bilateral leg pain M79.604; M79.605 Constipation K59.00 Hypoxia R09.02 Pulmonary edema J81.1 Elevated troponin R77.8 Bacterial pneumonia J15.9 History of multiple strokes Z86.73 Anxiety and depression F41.9; F32.9 Acid reflux K21.9 Insomnia G47.00 Anemia D64.9 Osteoporosis M81.0 Multi-infarct dementia F01.51 Dementia behavioral disturbance: with behavioral disturbance (1) Multi-infarct dementia Dementia behavioral disturbance: with behavioral disturbance Qualified Code(s): F01.51 - Vascular dementia with behavioral disturbance
[2021-10-14] MEDS: MAGNESIUM HYDROXIDE SUSP 30 ML UDC PO PRN (19:59)
[2021-10-14] MEDS: MELATONIN 3 MG TAB PO SCH (21:32)
[2021-10-15] MEDS ORDERED: MELATONIN 3 MG TAB PO ONE (00:14)
[2021-10-15 06:06] LABS: Hematocrit (blood only) 32.9 % (37-47); Hemoglobin 10.4 g/dL (12.0-16.0); Mean Corpuscular Hemoglobin 29.6 pg (25-34); Mean Corpuscular Hgb Conc 31.6 g/dL (32-36); Mean Corpuscular Volume 93.7 fL (80-100); Mean Platelet Volume 8.9 fL (7.4-10.4); Platelet Count 438 K/uL (130-400); RDW Coefficient of Variation 15.9 % (11.5-14.5); RDW Standard Deviation 53.4 fL (36.4-46.3); Red Blood Count 3.51 M/uL (4.2-5.4); White Blood Count 7.06 K/uL (4.8-10.8)
[2021-10-15 06:29] LABS: BUN Creatinine Ratio 15.6 (10-20); Calcium 8.6 mg/dl (8.5-10.1); Est GFR (African American) 113.6 ml/min
[2021-10-15] MEDS: PANTOprazole 40 MG TAB PO SCH (08:48)
[2021-10-15] MEDS: GABAPENTIN 100 MG CAP PO SCH ×3 (08:49→21:58)
[2021-10-15] MEDS: CALCIUM 600MG + VIT D 400 IU TAB PO SCH ×2 (08:49→21:19)
[2021-10-15] MEDS: SACCHAROMYCES BOULARDII 250 MG CAP PO SCH (08:49)
[2021-10-15] MEDS: ATORVASTATIN 40 MG TAB PO SCH (08:49)
[2021-10-15] MEDS: SENNA 8.6 MG TAB PO SCH ×2 (08:49→21:21)
[2021-10-15] MEDS: DULoxetine HCL 30 MG CAP PO SCH ×2 (08:49→21:19)
[2021-10-15] MEDS: ACETAMINOPHEN 500 MG TAB PO SCH ×3 (08:51→21:18)
[2021-10-15] MEDS: POTASSIUM CHLORIDE CRTAB 20 MEQ TABCR PO SCH (08:51)
[2021-10-15] MEDS: CLOPIDOGREL BISULFATE 75 MG TAB PO SCH (08:51)
[2021-10-15] MEDS: CYANOCOBALAMIN (B-12) 500 MCG TABLET PO SCH (08:51)
[2021-10-15] MEDS: traMADol HCL 50 MG TABLET PO PRN ×2 (08:52→19:51)
[2021-10-15] MEDS: DICLOFENAC SOD 1% GEL 100 GM TUBE EXT SCH ×4 (08:53→21:18)
[2021-10-15] MEDS: LIDOCAINE 5% 1 PATCH TD SCH (09:04)
[2021-10-15] MEDS: HEPARIN SOD 5,000 UNIT/0.5 ML VIAL SQ SCH ×2 (09:24→21:20)
[2021-10-15] MEDS: TRIAMCINOLONE ACET 0.1% CR 80 GM TUBE EXT SCH ×3 (09:25→21:20)
--- NOTE | 2021-10-15 13:55 | Hospitalist Progress Note ---
Date of Service October 15, 2021 Assessment & Plan (1) Ileus: Plan: has baseline constipation (mod-severe chronically) but has developed an ileus in the midst of her protracted stay. narcotics, recent hypokalemia, immobility, etc all to blame. dilaudid/oxycodone stopped; tramadol adjusted. try to limit narcotic usage. Keep mag/K wnl. unfortunately her biggest barrier to resolving the ileus fully is inability to ambulate. She has moved her bowels periodically but not often, but did have small BM on 10/14 and then a large loose one on 10/15 - advance diet to heart healthy today -continue senna 17.2 mg po BID. -hold home miralax as this may make the gaseous distension transiently worse. but once ileus is resolved would place back on miralax qd-bid. -she does respond well to Mag citrate and Fleets enemas too so could always give more of this as needed KUB still with some distension on 10/14 but no obstruction had vomiting after drinking coffee on AM of 10/15 but now feeling better and had large BM so advancing diet as above (2) Lumbar compression fracture: Plan: Acute horizontal 3 column fracture involving the superior endplate of L5, the L4-L5 intervertebral disc, the inferior endplate of L4 and the bilateral pedicles, right greater than left. This was following a minor fall at home. s/p posterior spinal fusion L4-S1 and kyphoplasty L5 vertebral body on 10/03/[address] Palacios. Due to severe osteoporosis was not able to place rods/screws. Post-operatively her progress has been limited by severe back pain. repeat CT lumbar spine on 10/08/21 showed stable findings. Remains on prn tramadol. Cont tylenol 1gm TID. Gabapentin started for presumed neuropathic pain in her b/l thighs whic has helped that pain. Pain remains in lower back Increase gabapentin to 200mg po tid on 10/15 Activity - per ortho - OOB to chair only for max 5-10 min at a time. 25-OH vitamin D level robust at 50+. -advise f/u with Rheumatology for consideration for Forteo vs Prolia poor candidate for aggressive, inpatient acute rehab. SNF level of rehab post-d/c recommended by therapy, Dr Palacios, etc (3) Bilateral leg pain: Plan: Likely radicular.Improved with gabapentin now Cont Cymbalta. Cont pain meds. Cont gabapentin TID. Initiated 10/11/21. titrating up (4) Constipation: Plan: see #1 above (5) Hypoxia: Plan: resolved (6) Pulmonary edema: Plan: resolved euvolemic (7) Elevated troponin: Plan: likely myocardial demand ischemia in setting of back issues, surgery, etc. Peak troponin 0.2. no evidence of ACS. echo - preserved EF, no wall motion abnormalities. (8) Bacterial pneumonia: Plan: suspected. s/p Rocephin course -- completed 5 days on 10/07/21. completed 3 day course of azithromycin 500mg. clinically resolved. stable in room air with no pulmonary symptoms. (9) History of multiple strokes: Plan: bilateral cerebellar and basal ganglia strokes perioperatively after hip fracture in 2018. TIA and expressive aphasia in 2021. No issues this admission. Cont atorvastatin Cont Plavix (held for 48 hours after spine surgery, and has since been resumed). (10) Anxiety and depression: Plan: Continue duloxetine (11) Acid reflux: Plan: Continue pantoprazole (12) Insomnia: Plan: stopped the benadryl; is on [facility]ers list, and could be affecting bowel motility; she was agreeable to stopping it. increased HS gabapentin to 200mg - this may help sleep. cont melatonin but increase to 6mg HS scheduled as 3mg did not help (13) Anemia: Plan: Fe studies show Fe deficiency with transferrin sat of 8%, s/p venofer x 3 doses this admission. h/o low-normal B12 level - remains on B12 supplementation. most recent past folic acid level wnl. most recent cbcs have been acceptable with hgb 10. (14) Osteoporosis: Plan: Is on Boniva once monthly Given lumbar spine burst fracture, should consider Forteo or Prolia-f/u with Rheum as outpt (15) Multi-infarct dementia: Plan: no agitated delirium or hospital psychosis at this time Plan: DVT proph - heparin 5000 BID dispo - SNF after ileus continues to improve, hopefully Sat- Admission and Anticipated Discharge Date Admission Date: October 02, 2021 Anticipated date of discharge: 10/16/21 Subjective Pt reports she vomited after drinking her coffee this AM, but then since at her liquids for lunch and is tired of liquids, wants regular food. No abd pain but feels distended. Thought her last BM was yesterday but RN confirms that pt was on bedpan this AM and filled it the whole way with loose stool. She reports this thigh pain is now resolved on gabapentin but still with significant lower back pain. No other concerns. I discussed her care with Ortho Spine this morning who recommends continued bed to chair only and said pain will likely be present for 4-6 weeks. Discussed possibility of FOrteo with her as an outpt and she said she refuses to have daily injections Review of Systems Review of Systems: All systems reviewed & are unremarkable except as noted in HPI & below Physical Exam Constitutional: WD/WN, vitals as above Eyes: + anicteric sclerae ENMT: external ear and nose normal, oropharynx normal Neck: trachea midline, no thyromegaly Respiratory: normal respiratory effort, lungs clear to auscultation Cardiovascular: RRR, no murmur, no edema Chest (Breasts): Chest: normal inspection of chest Gastrointestinal (Abdomen): normal bowel sounds, soft, nontender, no hepatosplenomegaly (mild distension) Musculoskeletal: Extremities: extremities normal to inspection; no cyanosis and no clubbing Skin: no rashes, warm and dry Neurologic: moves all extremities and awake; no focal motor deficits Psychiatric: A+Ox3, euthymic affect Lymphatic: no lymphedema Results & Data Results & Data ([facility]) Vital Signs (Past 12 Hours) Vital Signs Temp Pulse Resp BP Pulse Ox 10/15/21 06:43 36.7 C 77 18 125/77 93 Laboratory Results 10/15/21 05:44 10/15/21 05:44 PG Care Time/CCT Total # of Minutes Spent Total Time Spent with Patient: Total time spent is greater than 50% in coordination of care (as documented) at patient's floor/unit and/or counseling patient: Coding Level of Care Code 80109 Subseq Hosp Care Lvl 2 Diagnoses Ileus K56.7 Lumbar compression fracture S32.000A Bilateral leg pain M79.604; M79.605 Constipation K59.00 Hypoxia R09.02 Pulmonary edema J81.1 Elevated troponin R77.8 Bacterial pneumonia J15.9 History of multiple strokes Z86.73 Anxiety and depression F41.9; F32.9 Acid reflux K21.9 Insomnia G47.00 Anemia D64.9 Osteoporosis M81.0 Multi-infarct dementia F01.51 Dementia behavioral disturbance: with behavioral disturbance (1) Multi-infarct dementia Dementia behavioral disturbance: with behavioral disturbance Qualified Code(s): F01.51 - Vascular dementia with behavioral disturbance
[2021-10-15] MEDS: MELATONIN 3 MG TAB PO SCH (21:58)
[2021-10-16] MEDS: TRIAMCINOLONE ACET 0.1% CR 80 GM TUBE EXT SCH ×4 (08:25→21:17)
[2021-10-16] MEDS: CYANOCOBALAMIN (B-12) 500 MCG TABLET PO SCH (08:34)
[2021-10-16] MEDS: ACETAMINOPHEN 500 MG TAB PO SCH ×3 (08:34→21:22)
[2021-10-16] MEDS: GABAPENTIN 100 MG CAP PO SCH ×3 (08:34→21:15)
[2021-10-16] MEDS: CLOPIDOGREL BISULFATE 75 MG TAB PO SCH (08:35)
[2021-10-16] MEDS: SACCHAROMYCES BOULARDII 250 MG CAP PO SCH (08:35)
[2021-10-16] MEDS: CALCIUM 600MG + VIT D 400 IU TAB PO SCH ×2 (08:35→21:14)
[2021-10-16] MEDS: DULoxetine HCL 30 MG CAP PO SCH ×2 (08:35→21:14)
[2021-10-16] MEDS: ATORVASTATIN 40 MG TAB PO SCH (08:35)
[2021-10-16] MEDS: SENNA 8.6 MG TAB PO SCH ×2 (08:35→21:14)
[2021-10-16] MEDS: PANTOprazole 40 MG TAB PO SCH (08:36)
[2021-10-16] MEDS: LIDOCAINE 5% 1 PATCH TD SCH (08:36)
[2021-10-16] MEDS: HEPARIN SOD 5,000 UNIT/0.5 ML VIAL SQ SCH ×3 (08:36→21:24)
[2021-10-16] MEDS: DICLOFENAC SOD 1% GEL 100 GM TUBE EXT SCH ×4 (08:37→21:16)
[2021-10-16] MEDS: POTASSIUM CHLORIDE CRTAB 20 MEQ TABCR PO SCH (08:44)
[2021-10-16] MEDS: traMADol HCL 50 MG TABLET PO PRN (11:00)
--- NOTE | 2021-10-16 14:31 | XRay Report ---
KUB HISTORY: vomiting, assess for obstruction COMPARISON: KUB 10/14/2021. FINDINGS: Multiple dilated gas-filled loops of large and small bowel are again seen throughout the ab domen. These are not significantly changed. There is a right hip hemiarthroplasty. No renal calculi. No ureteral calculi. No pneumoperitoneum or pneumatosis. IMPRESSION: No significant change in the multiple dilated gas-filled loops of large and small bowel seen througho ut the abdomen. This favors an ileus. ACT 112: Negative or not required by law. Electronically signed by: Jean Colón M.D. 10/16/2021 2:27 PM
--- NOTE | 2021-10-16 15:18 | Hospitalist Progress Note ---
Date of Service October 16, 2021 Assessment & Plan (1) Ileus: Plan: has baseline constipation (mod-severe chronically) but has developed an ileus in the midst of her protracted stay. narcotics, recent hypokalemia, immobility, etc all to blame. dilaudid/oxycodone stopped; tramadol adjusted. try to limit narcotic usage. Replaced electrolytes unfortunately her biggest barrier to resolving the ileus fully is inability to ambulate. She has moved her bowels periodically but not often, but did have small BM on 10/14 and then a large loose one on 10/15, nothing so far on 10/16 Still with morning nausea with vomiting, but then able to tolerate food throughout the day Repeat KUB on 10/16 continues to show distended gaseous bowel loops but no obstruction, consistent with ileus -Give bisacodyl 10 mg MI x1 now and then make scheduled daily in the morning -Decrease tramadol from 100 mg to 50 mg to try to limit opioids -continue senna 17.2 mg po BID. -Discontinued miralax as this may make the gaseous distension transiently worse- she does not want a restart this as it makes her nauseated -she does respond well to Mag citrate and Fleets enemas too so could always give more of this as needed -Cannot discharge to rehab until her vomiting and ileus are resolved-hopefully in the next 1 to 2 days (2) Lumbar compression fracture: Plan: Acute horizontal 3 column fracture involving the superior endplate of L5, the L4-L5 intervertebral disc, the inferior endplate of L4 and the bilateral pedicles, right greater than left. This was following a minor fall at home. s/p posterior spinal fusion L4-S1 and kyphoplasty L5 vertebral body on 10/03/[address] Palacios. Due to severe osteoporosis was not able to place rods/screws. Post-operatively her progress has been limited by severe back pain. repeat CT lumbar spine on 10/08/21 showed stable findings. Remains on prn tramadol but decreasing dose down to 50 mg as above for significant ileus Cont tylenol 1gm TID scheduled Gabapentin started for presumed neuropathic pain in her b/l thighs whic has helped that pain. Pain remains in lower back Increased gabapentin to 200mg po tid on 10/15-keep at this dose for a few days and titrate up as tolerated considering side effects of drowsiness Activity - per ortho - OOB to chair now can be increased to a maximum of 15 minutes at a time as per orthospine 25-OH vitamin D level robust at 50+. -advise f/u with Rheumatology for consideration for Forteo vs Prolia poor candidate for aggressive, inpatient acute rehab. SNF level of rehab post-d/c recommended by therapy, Dr Palacios, etc (3) Bilateral leg pain: Plan: Likely radicular.Improved with gabapentin now Cont Cymbalta. Cont pain meds. Cont gabapentin TID. Initiated 10/11/21. titrating up (4) Constipation: Plan: see #1 above (5) Hypoxia: Plan: resolved, secondary to pneumonia and pulmonary edema on admission (6) Pulmonary edema: Plan: resolved euvolemic (7) Elevated troponin: Plan: likely myocardial demand ischemia in setting of back issues, surgery, etc. Peak troponin 0.2. no evidence of ACS. echo - preserved EF, no wall motion abnormalities. (8) Bacterial pneumonia: Plan: suspected. s/p Rocephin course -- completed 5 days on 10/07/21. completed 3 day course of azithromycin 500mg. clinically resolved. stable in room air with no pulmonary symptoms for 10 days (9) History of multiple strokes: Plan: bilateral cerebellar and basal ganglia strokes perioperatively after hip fracture in 2018. TIA and expressive aphasia in 2021. No issues this admission. Cont atorvastatin Cont Plavix (held for 48 hours after spine surgery, and has since been resumed). (10) Anxiety and depression: Plan: Continue duloxetine (11) Acid reflux: Plan: Continue pantoprazole (12) Insomnia: Plan: stopped the benadryl that she was on at home-is on Beers list, and could be affecting bowel motility; she was agreeable to stopping it. increased HS gabapentin to 200mg - this is helping her sleep cont melatonin 6mg HS (13) Anemia: Plan: Fe studies show Fe deficiency with transferrin sat of 8%, s/p venofer x 3 doses this admission. h/o low-normal B12 level - remains on B12 supplementation. most recent past folic acid level wnl. most recent cbcs have been acceptable with hgb 10. (14) Osteoporosis: Plan: Is on Boniva once monthly Given lumbar spine burst fracture, should consider Forteo or Prolia-f/u with Rheum as outpt (15) Multi-infarct dementia: Plan: no agitated delirium or hospital psychosis at this time Plan: DVT proph - heparin 5000 BID dispo - SNF after ileus continues to improve, hopefully in the next 1 to 2 days Admission and Anticipated Discharge Date Admission Date: October 02, 2021 Subjective Patient has not had a bowel movement at all today by the time I saw her. She was currently sitting on the bedpan the whole time I saw her and she felt like nothing was coming out. Feels her abdomen is distended. She did vomit again this morning, but since then has eaten lunch and tolerated it. Still with significant lower back pain but was able to sit in the chair for 15 minutes today and then later stood with physical therapy. She remains forgetful in the short-term which is her baseline. She does report she got good sleep last night with the increased dose of gabapentin and melatonin. Review of Systems Review of Systems: All systems reviewed & are unremarkable except as noted in HPI & below Physical Exam Constitutional: WD/WN, vitals as above Eyes: + anicteric sclerae Neck: trachea midline, no thyromegaly Respiratory: normal respiratory effort, lungs clear to auscultation Cardiovascular: RRR, no murmur, no edema Chest (Breasts): Chest: normal inspection of chest Gastrointestinal (Abdomen): normal bowel sounds, soft, nontender, no hepatosplenomegaly (mild distension) Musculoskeletal: Extremities: extremities normal to inspection; no cyanosis and no clubbing Skin: no rashes, warm and dry Neurologic: moves all extremities and awake; no focal motor deficits Psychiatric: Orientation: alert, oriented to person, oriented to place and cooperative Lymphatic: no lymphedema Results & Data Results & Data ([facility]) Vital Signs (Past 12 Hours) Vital Signs Temp Pulse Resp BP Pulse Ox 10/16/21 14:24 36.7 C 86 16 125/77 91 10/16/21 07:27 37.1 C 80 16 147/88 H 93 PG Care Time/CCT Total # of Minutes Spent Total Time Spent with Patient: Total time spent is greater than 50% in coordination of care (as documented) at patient's floor/unit and/or counseling patient: Coding Level of Care Code 63391 Subseq Hosp Care Lvl 2 Diagnoses Ileus K56.7 Lumbar compression fracture S32.000A Bilateral leg pain M79.604; M79.605 Constipation K59.00 Hypoxia R09.02 Pulmonary edema J81.1 Elevated troponin R77.8 Bacterial pneumonia J15.9 History of multiple strokes Z86.73 Anxiety and depression F41.9; F32.9 Acid reflux K21.9 Insomnia G47.00 Anemia D64.9 Osteoporosis M81.0 Multi-infarct dementia F01.51 Dementia behavioral disturbance: with behavioral disturbance (1) Multi-infarct dementia Dementia behavioral disturbance: with behavioral disturbance Qualified Code(s): F01.51 - Vascular dementia with behavioral disturbance
[2021-10-16] MEDS: bisacodyL 10 MG SUPP PR SCH (17:29)
[2021-10-16] MEDS: MELATONIN 3 MG TAB PO SCH (21:14)
[2021-10-17] MEDS: ACETAMINOPHEN 500 MG TAB PO SCH ×3 (10:20→22:25)
[2021-10-17] MEDS: traMADol HCL 50 MG TABLET PO PRN (10:23)
[2021-10-17] MEDS: DULoxetine HCL 30 MG CAP PO SCH ×2 (10:24→20:10)
[2021-10-17] MEDS: ATORVASTATIN 40 MG TAB PO SCH (10:25)
[2021-10-17] MEDS: HEPARIN SOD 5,000 UNIT/0.5 ML VIAL SQ SCH ×2 (10:25→20:12)
[2021-10-17] MEDS: LIDOCAINE 5% 1 PATCH TD SCH (10:26)
[2021-10-17] MEDS: CALCIUM 600MG + VIT D 400 IU TAB PO SCH ×2 (10:27→20:11)
[2021-10-17] MEDS: CLOPIDOGREL BISULFATE 75 MG TAB PO SCH (10:29)
[2021-10-17] MEDS: PANTOprazole 40 MG TAB PO SCH (10:29)
[2021-10-17] MEDS: GABAPENTIN 100 MG CAP PO SCH ×3 (10:30→20:10)
[2021-10-17] MEDS: CYANOCOBALAMIN (B-12) 500 MCG TABLET PO SCH (10:31)
[2021-10-17] MEDS: SENNA 8.6 MG TAB PO SCH ×2 (10:32→20:11)
[2021-10-17] MEDS: SACCHAROMYCES BOULARDII 250 MG CAP PO SCH (10:33)
[2021-10-17] MEDS: TRIAMCINOLONE ACET 0.1% CR 80 GM TUBE EXT SCH ×3 (10:35→20:13)
[2021-10-17] MEDS: DICLOFENAC SOD 1% GEL 100 GM TUBE EXT SCH ×4 (10:36→20:12)
[2021-10-17] MEDS: bisacodyL 10 MG SUPP PR SCH (10:42)
[2021-10-17] MEDS: POTASSIUM CHLORIDE CRTAB 20 MEQ TABCR PO SCH (13:50)
[2021-10-17 14:10] LABS: Hematocrit (blood only) 37.4 % (37-47); Mean Corpuscular Hemoglobin 30.2 pg (25-34); Mean Corpuscular Hgb Conc 32.1 g/dL (32-36); Platelet Count 477 K/uL (130-400); RDW Coefficient of Variation 15.7 % (11.5-14.5); RDW Standard Deviation 53.6 fL (36.4-46.3); Red Blood Count 3.98 M/uL (4.2-5.4); White Blood Count 7.06 K/uL (4.8-10.8)
[2021-10-17 14:52] LABS: BUN Creatinine Ratio 14.8 (10-20); Calcium 9.4 mg/dl (8.5-10.1); Creatinine Clr Calc Pharmacy 90.8 ml/min; Est GFR (Non-African American) 92.3 ml/min; Potassium 3.7 mmol/L (3.5-5.1)
[2021-10-17] MEDS ORDERED: METHYLNALTREXONE BROMIDE 12 MG/0.6 ML VIAL SQ SCH (17:00)
[2021-10-17] MEDS: MELATONIN 3 MG TAB PO SCH (20:10)
--- NOTE | 2021-10-17 21:40 | Hospitalist Progress Note ---
Date of Service October 17, 2021 Assessment & Plan (1) Ileus: Plan: has baseline constipation (mod-severe chronically) but has developed an ileus in the midst of her protracted stay. narcotics, recent hypokalemia, immobility, etc all to blame. dilaudid/oxycodone stopped; tramadol adjusted. try to limit narcotic usage. Replaced electrolytes unfortunately her biggest barrier to resolving the ileus fully is inability to ambulate. She has moved her bowels periodically but not often, but did have small BM on 10/14 and then a large loose one on 10/15, nothing so far on 10/16 Still with morning nausea with vomiting, but then able to tolerate food throughout the day Repeat KUB on 10/16 continues to show distended gaseous bowel loops but no obstruction, consistent with ileus -Give bisacodyl 10 mg MA x1 now and then make scheduled daily in the morning -Decrease tramadol from 100 mg to 50 mg to try to limit opioids -continue senna 17.2 mg po BID. -Discontinued miralax as this may make the gaseous distension transiently worse- she does not want a restart this as it makes her nauseated -she does respond well to Mag citrate and Fleets enemas too so could always give more of this as needed -Cannot discharge to rehab until her vomiting and ileus are resolved-hopefully in the next 1 to 2 days will add relistor given that patient continues to be on tramadol. Had extensive discussion with patient regarding her abd. pain. (2) Lumbar compression fracture: Plan: Acute horizontal 3 column fracture involving the superior endplate of L5, the L4-L5 intervertebral disc, the inferior endplate of L4 and the bilateral pedicles, right greater than left. This was following a minor fall at home. s/p posterior spinal fusion L4-S1 and kyphoplasty L5 vertebral body on 10/03/[address] Palacios. Due to severe osteoporosis was not able to place rods/screws. Post-operatively her progress has been limited by severe back pain. repeat CT lumbar spine on 10/08/21 showed stable findings. Remains on prn tramadol but decreasing dose down to 50 mg as above for significant ileus Cont tylenol 1gm TID scheduled Gabapentin started for presumed neuropathic pain in her b/l thighs whic has helped that pain. Pain remains in lower back Increased gabapentin to 200mg po tid on 10/15-keep at this dose for a few days and titrate up as tolerated considering side effects of drowsiness Activity - per ortho - OOB to chair now can be increased to a maximum of 15 minutes at a time as per orthospine 25-OH vitamin D level robust at 50+. -advise f/u with Rheumatology for consideration for Forteo vs Prolia poor candidate for aggressive, inpatient acute rehab. SNF level of rehab post-d/c recommended by therapy, Dr Palacios, etc (3) Bilateral leg pain: Plan: Likely radicular.Improved with gabapentin now Cont Cymbalta. Cont pain meds. Cont gabapentin TID. Initiated 10/11/21. titrating up (4) Constipation: Plan: see #1 above (5) Hypoxia: Plan: resolved, secondary to pneumonia and pulmonary edema on admission (6) Pulmonary edema: Plan: resolved euvolemic (7) Elevated troponin: Plan: likely myocardial demand ischemia in setting of back issues, surgery, etc. Peak troponin 0.2. no evidence of ACS. echo - preserved EF, no wall motion abnormalities. (8) Bacterial pneumonia: Plan: suspected. s/p Rocephin course -- completed 5 days on 10/07/21. completed 3 day course of azithromycin 500mg. clinically resolved. stable in room air with no pulmonary symptoms for 10 days (9) History of multiple strokes: Plan: bilateral cerebellar and basal ganglia strokes perioperatively after hip fracture in 2018. TIA and expressive aphasia in 2021. No issues this admission. Cont atorvastatin Cont Plavix (held for 48 hours after spine surgery, and has since been resumed). (10) Anxiety and depression: Plan: Continue duloxetine (11) Acid reflux: Plan: Continue pantoprazole (12) Insomnia: Plan: stopped the benadryl that she was on at home-is on [facility] list, and could be affecting bowel motility; she was agreeable to stopping it. increased HS gabapentin to 200mg - this is helping her sleep cont melatonin 6mg HS (13) Anemia: Plan: Fe studies show Fe deficiency with transferrin sat of 8%, s/p venofer x 3 doses this admission. h/o low-normal B12 level - remains on B12 supplementation. most recent past folic acid level wnl. most recent cbcs have been acceptable with hgb 10. (14) Osteoporosis: Plan: Is on Boniva once monthly Given lumbar spine burst fracture, should consider Forteo or Prolia-f/u with Rheum as outpt (15) Multi-infarct dementia: Plan: no agitated delirium or hospital psychosis at this time Plan: DVT proph - heparin 5000 BID dispo - SNF after ileus continues to improve, hopefully in the next 1 to 2 days Admission and Anticipated Discharge Date Admission Date: October 02, 2021 Subjective Patient reports she is unable to stand and also reports she has abdominal distention. Review of Systems Review of Systems: All systems reviewed & are unremarkable except as noted in HPI & below Physical Exam Constitutional: WD/WN, vitals as above Eyes: PERRL, conjunctivae normal, anicteric sclerae + anicteric sclerae; normal pupil size ENMT: external ear and nose normal, oropharynx normal Neck: trachea midline, no thyromegaly Respiratory: normal respiratory effort, lungs clear to auscultation Cardiovascular: RRR, no murmur, no edema Rate/Rhythm: regular rate and regular rhythm Heart Sounds: normal S1 and normal S2; no murmur Extremities: normal capillary refill; no calf tenderness and no pedal edema Chest (Breasts): Chest: normal inspection of chest Gastrointestinal (Abdomen): normal bowel sounds, soft, nontender, no hepatosplenomegaly (mild distension) Musculoskeletal: no cyanosis or clubbing, extremities motor strength 5/5 Extremities: extremities normal to inspection; no cyanosis and no clubbing Skin: no rashes, warm and dry Neurologic: moves all extremities and awake; no focal motor deficits and not confused Psychiatric: A+Ox3, euthymic affect Orientation: alert, oriented to person, oriented to place and cooperative Lymphatic: no lymphedema Results & Data Results & Data ([facility]) Vital Signs (Past 12 Hours) Vital Signs Temp Pulse Pulse Resp BP Pulse Ox 10/17/21 15:42 36.6 C 83 18 129/74 97 10/17/21 11:45 37.0 C 72 18 147/80 H 97 PG Care Time/CCT Total # of Minutes Spent Total Time Spent with Patient: Total time spent is greater than 50% in coordination of care (as documented) at patient's floor/unit and/or counseling patient: Coding Level of Care Code 84879 Subseq Hosp Care Lvl 2 Diagnoses Ileus K56.7 Lumbar compression fracture S32.000A Bilateral leg pain M79.604; M79.605 Constipation K59.00 Hypoxia R09.02 Pulmonary edema J81.1 Elevated troponin R77.8 Bacterial pneumonia J15.9 History of multiple strokes Z86.73 Anxiety and depression F41.9; F32.9 Acid reflux K21.9 Insomnia G47.00 Anemia D64.9 Osteoporosis M81.0 Multi-infarct dementia F01.51 Dementia behavioral disturbance: with behavioral disturbance Time Spent (min) 35 (1) Multi-infarct dementia Dementia behavioral disturbance: with behavioral disturbance Qualified Code(s): F01.51 - Vascular dementia with behavioral disturbance
[2021-10-18] MEDS: ATORVASTATIN 40 MG TAB PO SCH (09:49)
[2021-10-18] MEDS: CLOPIDOGREL BISULFATE 75 MG TAB PO SCH (09:50)
[2021-10-18] MEDS: CALCIUM 600MG + VIT D 400 IU TAB PO SCH (09:50)
[2021-10-18] MEDS: DULoxetine HCL 30 MG CAP PO SCH (09:51)
[2021-10-18] MEDS: CYANOCOBALAMIN (B-12) 500 MCG TABLET PO SCH (09:51)
[2021-10-18] MEDS: PANTOprazole 40 MG TAB PO SCH (09:52)
[2021-10-18] MEDS: HEPARIN SOD 5,000 UNIT/0.5 ML VIAL SQ SCH (09:52)
[2021-10-18] MEDS: GABAPENTIN 100 MG CAP PO SCH ×2 (09:52→13:07)
[2021-10-18] MEDS: LIDOCAINE 5% 1 PATCH TD SCH (09:52)
[2021-10-18] MEDS: SACCHAROMYCES BOULARDII 250 MG CAP PO SCH (09:53)
[2021-10-18] MEDS: SENNA 8.6 MG TAB PO SCH (09:53)
[2021-10-18] MEDS: bisacodyL 10 MG SUPP PR SCH (10:05)
[2021-10-18] MEDS: ACETAMINOPHEN 500 MG TAB PO SCH ×2 (11:06→13:07)
[2021-10-18] MEDS: traMADol HCL 50 MG TABLET PO PRN (11:07)
[2021-10-18] MEDS: TRIAMCINOLONE ACET 0.1% CR 80 GM TUBE EXT SCH ×2 (11:10→13:07)
[2021-10-18] MEDS: DICLOFENAC SOD 1% GEL 100 GM TUBE EXT SCH ×2 (11:11→12:53)
[2021-10-18] MEDS: POTASSIUM CHLORIDE CRTAB 20 MEQ TABCR PO SCH (12:53)
--- NOTE | 2021-10-18 14:10 | XRay Report ---
KUB HISTORY: Acute generalized abdominal pain with distention ABDOMINAL DISTENTION COMPARISON: KUB 10/16/2021 FINDINGS: There is persistent air-filled loops of large and small bowel the prior study. No renal ca lculi. No ureteral calculi. No pneumoperitoneum or pneumatosis. Right hip arthroplasty. Moderate left hip osteoarthritis with suggested AVN. No fracture. IMPRESSION: Persistent air-filled loops of large and small bowel suggestive of an ileus, unchanged from yesterday 's exam. ACT 112: Negative or not required by law. The above report was generated using voice recognition software. It may contain grammatical, syntax o r spelling errors. Electronically signed by: Gianni Robison M.D. 10/18/2021 2:07 PM
--- NOTE | 2021-10-24 20:18 | Discharge Summary ---
Date of Service October 18, 2021 Admission HPI Per Admitting Provider Magui Meza is a 76 year old female who presents to the ER via EMS from home due to back pain. She fell on and has been having significant back pain radiating down both legs since. She reports falling due to her right knee giving way. This happens occasionally without pain. She reports an extensive history of back surgery previously performed in [place]. Her feels she is no longer able to cope with her at home as she is no longer able to move around. He reports worsening balance due to recurrent strokes/TIAs. Her called EMS and on arrival her O2 sats on room air was noted to be in the low 80s and now maintaining O2 sats on 4LPM O2. She denies any chest pain, fever, upper respiratory symptoms. She does note having chills last night. She reports chronic pain and numbness radiating down both legs but has been much worse after this recent fall. In the ER CXR was concerning for right sided pneumonia and she was treated with ceftriaxone and azithromycin, troponin elevated 0.23 but without EKG changes, shortness of breath or chest pain, CTA concerning for pulmonary edema and findings consistent with elevated right heart pressures. Of note she recently had echocardiogram in August for syncope workup which was unremarkable. Lumbar spine CT confirmed L5 nondisplaced horizontal fracture which is at the site of her pain. She was referred to medicine for admission and ongoing management of elevated troponin, hypoxia and acute lumbar spine fracture. Principal Diagnosis Ileus Discharge Exam Constitutional: WD/WN, vitals as above Eyes: PERRL, conjunctivae normal, anicteric sclerae + anicteric sclerae; normal pupil size ENMT: external ear and nose normal, oropharynx normal Neck: trachea midline, no thyromegaly Respiratory: normal respiratory effort, lungs clear to auscultation Cardiovascular: RRR, no murmur, no edema Rate/Rhythm: regular rate and regular rhythm Heart Sounds: normal S1 and normal S2; no murmur Extremities: normal capillary refill; no calf tenderness and no pedal edema Chest (Breasts): Chest: normal inspection of chest Gastrointestinal (Abdomen): normal bowel sounds, soft, nontender, no hepatosplenomegaly (mild distension) Musculoskeletal: no cyanosis or clubbing, extremities motor strength 5/5 Extremities: extremities normal to inspection; no cyanosis and no clubbing Skin: no rashes, warm and dry Neurologic: moves all extremities and awake; no focal motor deficits and not confused Psychiatric: A+Ox3, euthymic affect Orientation: alert, oriented to person, oriented to place and cooperative Lymphatic: no lymphedema Discharge Data Allergies Allergy/AdvReac Type Severity Reaction Status Date / Time adhesive tape Allergy Unknown Unknown Verified 10/03/21 12:43 No Known Drug Allergies Allergy Unknown . Verified 09/30/21 17:32 Consultations 09/30/21 16:46 ED Decision to Admit Stat 10/01/21 04:40 Consult Orthopedic Surgery Routine Procedures Performed Operation Date: 10/03/21 11:45 Actual Procedures p L5 Kyphoplasty(Not Applicable) - Miguel Palacios, Ordered Studies 09/30/21 15:25 CT lumbar spine wo con Stat 09/30/21 15:38 CT angio chest PE protocol Stat 10/01/21 11:00 US arterial duplex LE BI Routine 10/01/21 11:03 MR lumbar spine wo con Urgent 10/03/21 11:45 FL lumbar spine 2-3V Routine 10/08/21 11:44 CT lumbar spine wo con Urgent Hospital Course (1) Ileus: has baseline constipation (mod-severe chronically) but has developed an ileus in the midst of her protracted stay. narcotics, recent hypokalemia, immobility, etc all to blame. dilaudid/oxycodone stopped; tramadol adjusted. try to limit narcotic usage. Replaced electrolytes unfortunately her biggest barrier to resolving the ileus fully is inability to ambulate. She has moved her bowels periodically but not often, but did have small BM on 10/14 and then a large loose one on 10/15, nothing so far on 10/16 Still with morning nausea with vomiting, but then able to tolerate food throughout the day Repeat KUB on 10/16 continues to show distended gaseous bowel loops but no obstruction, consistent with ileus -Give bisacodyl 10 mg MT x1 now and then make scheduled daily in the morning -Decrease tramadol from 100 mg to 50 mg to try to limit opioids -continue senna 17.2 mg po BID. -Discontinued miralax as this may make the gaseous distension transiently worse- she does not want a restart this as it makes her nauseated -she does respond well to Mag citrate and Fleets enemas too so could always give more of this as needed -Clinically patient is feeling better. However she continues to have distention. Currently feel patient will likely improve as she goes to rehab and becomes more active. Will also restart miralax (home dose) (2) Lumbar compression fracture: Acute horizontal 3 column fracture involving the superior endplate of L5, the L4-L5 intervertebral disc, the inferior endplate of L4 and the bilateral pedicles, right greater than left. This was following a minor fall at home. s/p posterior spinal fusion L4-S1 and kyphoplasty L5 vertebral body on 10/03/[address] Palacios. Due to severe osteoporosis was not able to place rods/screws. Post-operatively her progress has been limited by severe back pain. repeat CT lumbar spine on 10/08/21 showed stable findings. Remains on prn tramadol but decreasing dose down to 50 mg as above for significant ileus Cont tylenol 1gm TID scheduled Gabapentin started for presumed neuropathic pain in her b/l thighs whic has helped that pain. Pain remains in lower back Increased gabapentin to 200mg po tid on 10/15-keep at this dose for a few days and titrate up as tolerated considering side effects of drowsiness Activity - per ortho - OOB to chair now can be increased to a maximum of 15 minutes at a time as per orthospine 25-OH vitamin D level robust at 50+. -advise f/u with Rheumatology for consideration for Forteo vs Prolia poor candidate for aggressive, inpatient acute rehab. SNF level of rehab post-d/c recommended by therapy, Dr Palacios, etc (3) Bilateral leg pain: Likely radicular.Improved with gabapentin now Cont Cymbalta. Cont pain meds. Cont gabapentin TID. Initiated 10/11/21. titrating up (4) Constipation: see #1 above (5) Hypoxia: resolved, secondary to pneumonia and pulmonary edema on admission (6) Pulmonary edema: resolved euvolemic (7) Elevated troponin: likely myocardial demand ischemia in setting of back issues, surgery, etc. Peak troponin 0.2. no evidence of ACS. echo - preserved EF, no wall motion abnormalities. (8) Bacterial pneumonia: suspected. s/p Rocephin course -- completed 5 days on 10/07/21. completed 3 day course of azithromycin 500mg. clinically resolved. stable in room air with no pulmonary symptoms for 10 days (9) History of multiple strokes: bilateral cerebellar and basal ganglia strokes perioperatively after hip fracture in 2019. TIA and expressive aphasia in 2021. No issues this admission. Cont atorvastatin Cont Plavix (held for 48 hours after spine surgery, and has since been resumed). (10) Anxiety and depression: Continue duloxetine (11) Acid reflux: Continue pantoprazole (12) Insomnia: stopped the benadryl that she was on at home-is on [facility] list, and could be affecting bowel motility; she was agreeable to stopping it. increased HS gabapentin to 200mg - this is helping her sleep cont melatonin 6mg HS (13) Anemia: Fe studies show Fe deficiency with transferrin sat of 8%, s/p venofer x 3 doses this admission. h/o low-normal B12 level - remains on B12 supplementation. most recent past folic acid level wnl. most recent cbcs have been acceptable with hgb 10. (14) Osteoporosis: Is on Boniva once monthly Given lumbar spine burst fracture, should consider Forteo or Prolia-f/u with Rheum as outpt (15) Multi-infarct dementia: no agitated delirium or hospital psychosis at this time DVT proph - heparin 5000 BID dispo - SNF after ileus continues to improve, hopefully in the next 1 to 2 days Total Time Total Time Spent Total Time Spent (In Minutes): 32 Discharge Plan Discharge Items Patient Disposition: Transfer Correction Fac Reason For Visit: ELEVATED TROPONIN Discharge Diagnosis: lumbar burst fracture Activity: Resume your previous activity Non-emergency contact: Primary Care Provider Call non-emergency contact if: you have any medication questions Follow-up/Referrals: Elizabeth Ramirez CRNP [Primary Care Provider] - Diet: Heart Healthy Addtl Attending Provider Instructions: In regards to your ileus, I anticipate the more you move, the likelihood that your ileus will improve as well. Will resume miralax at discharge. will recommend holding tramadol and only use it when your pain is severe. Ortho recommended she sit up as tolerated. She will require detention placement with physical therapy while in bed. We will slowly transition her to bed to chair in the upcoming weeks and begin ambulation when it is tolerated. Unfortunate she is on a long course of recovery secondary to severe osteoporosis and the unstable pattern of her fracture. You will be on heparin for the next 4 weeks until you recover and are moving. Pending Studies at Discharge: No Stand-Alone Forms: My [facility] Skilled Items Patient informed of condition?: Yes DNR: Yes Discharge Level of Care: Skilled Communicable Disease: No Discharge Prognosis: Stable Lines: None Urinary Catheter: No Medications and DC Order Prescriptions: New heparin, porcine (PF) 5,000 unit/0.5 mL Syringe 5,000 unit subcut Q12 Qty: 25 RF: 0 diclofenac sodium [Voltaren Arthritis Pain] 1 % Gel 4 g EXT QID Qty: 100 RF: 0 tramadol 50 mg Tablet 50 mg PO Q6H PRN (Reason: severe pain (scale score 7-10)) Qty: 14 RF: 0 magnesium hydroxide [Milk of Magnesia] 400 mg/5 mL Suspension 30 ml PO Q24H PRN (Reason: cconstipation) Qty: 3000 RF: 0 bisacodyl 10 mg Suppository 10 mg MT DAILY Qty: 30 RF: 0 gabapentin 100 mg Capsule 200 mg PO TID Qty: 90 RF: 0 sennosides [Senokot] 8.6 mg Tablet 17.2 mg PO BID Qty: 60 RF: 0 polyethylene glycol 3350 [Miralax] 17 gram/dose powder 8.5 g PO DAILY Qty: 119 RF: 0 polyethylene glycol 3350 [Miralax] 17 gram/dose powder 8.5 g PO PM PRN (Reason: constipation) Qty: 119 RF: 0 lidocaine 5 % Adhesive Patch,Medicated 1 patch transdermal QAM Qty: 30 RF: 0 Continued cyanocobalamin (vitamin B-12) [Vitamin B-12] 1,000 mcg Tablet 1,000 mcg PO QAM RF: 0 duloxetine 30 mg capsule,delayed release(DR/EC) 30 mg PO BID RF: 0 ibandronate 150 mg tablet 150 mg PO MONTHLY RF: 0 potassium chloride 20 mEq tablet,ER particles/crystals 20 meq PO QAM RF: 0 lisinopril 10 mg tablet 10 mg PO HS Qty: 30 RF: 1 clopidogrel 75 mg Tablet 75 mg PO QAM Qty: 30 RF: 0 atorvastatin 80 mg tablet 80 mg PO QAM RF: 0 pantoprazole 40 mg tablet,delayed release (DR/EC) 40 mg PO QAM RF: 0 Probiotic 10 billion cell Capsule 10,000 mmu cells PO DAILY RF: 0 diphenhydramine-acetaminophen [Tylenol PM Extra Strength] 25-500 mg Tablet 2 tab PO HS RF: 0 calcium carbonate-vitamin D3 [Caltrate with Vitamin D3] 600 mg-20 mcg (800 unit) Tablet 1 tab PO QAM RF: 0 Discontinued hydrocodone-acetaminophen 5-325 mg tablet 1 tab PO UD PRN (Reason: Pain) RF: 0 Discharge Orders: Discharge Order (Routine); Ordered 10/18/21 Ordered By: Brent Menendez Admission Data Admit Date/Time: 10/02/21 10:54 Attending Provider: Brent Menendez Admit Provider: Carl Villasenor Primary Care Provider: Elizabeth Ramirez Other Providers: [facility] ; Carl Villasenor ; Miguel Palacios ; Emanuel Aguirre at [place] Other Interventions: Discharge Summary Assessment (RN) Last Done: 10/18/21 14:25 Coding Level of Care Code D/C DAY MANAGEMENT >30 MINS Diagnoses Ileus K56.7 Lumbar compression fracture S32.000A Bilateral leg pain M79.604; M79.605 Constipation K59.00 Hypoxia R09.02 Pulmonary edema J81.1 Elevated troponin R77.8 Bacterial pneumonia J15.9 History of multiple strokes Z86.73 Anxiety and depression F41.9; F32.9 Acid reflux K21.9 Insomnia G47.00 Anemia D64.9 Osteoporosis M81.0 Multi-infarct dementia F01.51 Dementia behavioral disturbance: with behavioral disturbance
--- NOTE | 2021-10-25 04:25 | Coding Query ---
Your help is needed for correct coding of this account; please clarify if the patients Post-operative Ileus was: (* Patient s/p spinal fusion surgery for correction of fractured vertebrae. 10/17 progress note documented ileus due to prolonged immobility, hypokalemia and narcotics. ) Please check below & thank you . JULIO Underwood CCS ( x) expected out of the surgery ( ) unexpected complication from the surgery ( )other please specify MTDD
== END 2021-10-18 15:31 | DRG 456 ==
LOC: ED 13:30 → 2N 13:30 → SUATTDRO 18:35 → 2N 21:14 → SUATTDRO 10-02 10:54 → 2N 10-03 00:08 → 3N 10-09 23:23